=== PATIENT | female | born 1955 | race Caucasian/White ===

== ENCOUNTER → 2018-08-07 16:35 | Outpatient (CLI) | payer MEDICARE, SELFPAY ==
--- NOTE | 2018-08-07 16:50 | RAD_ITS ---
STUDY: X-RAY - LEFT KNEE REASON FOR EXAM: Female, 63 years old. Left knee pain TECHNIQUE: 4 view(s) of the knee. COMPARISON: 11/22/2015 FINDINGS: Normal visualized distal femur. Normal visualized proximal tibia and fibula. Normal proximal tibiofibular articulation. Stable spurring along the tibial spine and femoral notch. There is stable mild to moderate moderate degenerative arthrosis of the medial femorotibial compartment with moderate joint space narrowing. There is stable severe degenerative arthrosis of the lateral femorotibial compartment with severe joint space narrowing. Normal patellofemoral articulation. There is no demonstrated joint effusion. Morbid obesity. RAD/Knee 4 or More Views IMPRESSION: No significant change of predominantly left severe lateral femorotibial degeneration. Electronically Signed: Sierra Crespo MD at 6:45 EST , Service support ,
--- OUTSIDE RECORDS SUMMARY | 2018-10-12 11:56 | XMS RPT_ITS | Clinical Summary ---
:1955 Author Organization [place] 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) pulmonary 80-100%) disease Back pain, 741297624 Active Mehreen M Lumbar lumbar, (SNOMED 11/27 11/[address]) radiculopat hy Dyspnea on 85922929 Active Miah M Dyspnea on exertion (SNOMED 11/07 11/[address]) COPD stage 308453509 Removed Paulette Mild chronic 1 mild (SNOMED 11/02 11/02 Marie Rojas 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 Chronic 71313948 Active Miah M Chronic pain pain (SNOMED 08/14 08/[address]) Morbid 229601428 Active Miah M Morbid obesity obesity (SNOMED 08/14 08/[address]) J LUIS 17675717 Active Miah M Obstructive (SNOMED 08/14 08/[address] Brown [address] ap[address]) syndrome Tobacco 812203224 Active Miah M Tobacco dependence, (SNOMED 08/14 08/14 Brown DO dependence in in CT) remission remission COPD 96001518 Removed Miah M Chronic (SNOMED 08/14 08/[address]) lung disease Meniscus 154873616 Active Isabela Pollock Derangement of degeneratio (SNOMED 11/21 11/[address]) Osteoarthri 395070723 Active Isabela Pollock Osteoarthritis tis, knee, (SNOMED 11/21 11/21 [place] of knee left CT) Knee pain, 25669933 Active Isabela Pollock Knee pain left (SNOMED 11/21 11/[address]) Medications Medication Instructions Start Stop Generic Name NDC Provider Date Date XANAX 0.5 MG TABS twice daily ALPRAZOLAM [id number] Isabela Pollock / [place] XANAX 0.5 MG TABS twice daily ALPRAZOLAM 85119133469 Paulette L /07/31 [place] CALCIUM 500 +D CALCIUM 25265853971 Isabela Pollock 500-400 MG-UNIT / CARB-CHOLECALCIFE [place] TABS ROL CALCIUM 500 +D CALCIUM 15728039904 Paulette L 500-400 MG-UNIT /07/31 CARB-CHOLECALCIFE [place] TABS ROL VITAMIN D3 32908 CHOLECALCIFEROL 30679732087 Isabela Pollock UNIT CAPS / [place] VITAMIN D3 03081 CHOLECALCIFEROL 68427829678 Paulette L UNIT CAPS /07/31 [place] OMEPRAZOLE 20 MG twice daily OMEPRAZOLE 23623604685 Isabela Pollock TBEC /03 [place] OMEPRAZOLE 20 MG twice daily OMEPRAZOLE 12736684009 Paulette L TBEC /07/31 [place] FUROSEMIDE 20 MG daily FUROSEMIDE 26801063075 Alice TABS /03 [place] FUROSEMIDE 20 MG daily FUROSEMIDE 39433257256 Paulette L TABS /03 07/31 [place] ALENDRONATE 1 every week ALENDRONATE 18617729973 Isabela Pollock SODIUM 70 MG TABS / SODIUM [place] ALENDRONATE 1 every week ALENDRONATE 23277276047 Paulette L SODIUM 70 MG TABS /07/31 SODIUM [place] LISINOPRIL 40 MG twice daily LISINOPRIL 13065980776 Alice TABS / [place] LISINOPRIL 40 MG twice daily LISINOPRIL 68966015268 Paulette L TABS /07/31 [place] CARVEDILOL 25 MG twice daily CARVEDILOL 00040479450 Alice TABS / [place] CARVEDILOL 25 MG twice daily CARVEDILOL 93933249583 Paulette L TABS /07/31 [place] CELEXA 40 MG TABS daily CITALOPRAM 70547422611 Alice / HYDROBROMIDE [place] CELEXA 40 MG TABS daily CITALOPRAM 89562101863 Paulette L /07/31 HYDROBROMIDE [place] ALLOPURINOL 300 daily ALLOPURINOL 54470449676 Isabela Pollock MG TABS / [place] ALLOPURINOL 300 daily ALLOPURINOL 18816132633 Paulette L MG TABS /07/31 [place] IBUPROFEN 200 MG as needed IBUPROFEN 21330715181 Isabela Pollock TABS / [place] SYMBICORT 160-4.5 twice daily BUDESONIDE-FORMOT 15789737183 Isabela Pollock MCG/ACT AERO / HAZEL FUMARATE [place] RESTASIS 0.05 % CYCLOSPORINE 37863140115 Isabela Pollock EMUL / [place] MELOXICAM 7.5 MG as needed MELOXICAM 81515519306 Isabela Pollock TABS /03 [place] PROAIR HFA 108 ALBUTEROL SULFATE 57195098149 Isabela Pollock (90 Base) MCG/ACT / [place] AERS MAGNESIUM OXIDE daily MAGNESIUM OXIDE 82987328353 Isabela Pollock 400 MG [place] SIMVASTATIN 40 MG daily SIMVASTATIN 80370960075 Isabela Pollock TABS / [place] FLONASE 50 2 sprays FLUTICASONE 54962223240 Isabela Pollock MCG/ACT SUSP / PROPIONATE [place] SYMBICORT 160-4.5 Two puffs BUDESONIDE-FORMOT 93272302791 Paulette L MCG/ACT AERO twice daily HAZEL FUMARATE [place] SYMBICORT 160-4.5 Two puffs BUDESONIDE-FORMOT 01986969627 Miah Lozoya MCG/ACT AERO twice daily 11/07 HAZEL FUMARATE Brown DO DIPHENHYDRAMINE twice daily DIPHENHYDRAMINE 74849736479 Alice HCL 25 MG CAPS / HCL [place] GABAPENTIN 300 MG three times a GABAPENTIN 30784363514 Alice CAPS day [place] CYCLOBENZAPRINE three times a CYCLOBENZAPRINE 18824595203 Alice HCL 10 MG TABS HCL [place] ASPIRIN 81 MG daily ASPIRIN 31763391802 Alice ORAL TABS [place] IBUPROFEN 200 MG Four caps IBUPROFEN 49688291804 Paulette L TABS twice daily [place] needed RESTASIS 0.05 % One drop in CYCLOSPORINE 29249712776 Paulette L EMUL both eyes [place] twice daily MELOXICAM 7.5 MG One tab every MELOXICAM 40549093882 Paulette L TABS saturday [place] PROAIR HFA 108 Two puffs ALBUTEROL SULFATE 08067653830 Paulette L (90 Base) MCG/ACT every 6 hours / [place] AERS as needed MAGNESIUM OXIDE One tab twice MAGNESIUM OXIDE 06896821224 Paulette L 400 MG CAPS daily [place] SIMVASTATIN 40 MG One tab at SIMVASTATIN 81779048716 Paulette L TABS bedtime [place] FLONASE 50 2 sprays in FLUTICASONE Paulette L MCG/ACT SUSP each nostril / PROPIONATE [place] daily CETRAXAL 0.2 % 0.25 twiced CIPROFLOXACIN HCL 47236734651 Paulette L SOLN daily [place] PRED MILD 0.12 % One drop in PREDNISOLONE 32983326474 Paulette L SUSP both eyes ACETATE [place] times daily ACULAR LS 0.4 % One drop KETOROLAC 73686907064 Paulette L SOLN TROMETHAMINE Lino WELLBUTRIN XL 150 One tab once BUPROPION HCL 65482094893 Paulette L MG [id number] daily for [place] anxiety, depression ZYLOPRIM 300 MG One tab once ALLOPURINOL 81900066025 Paulette L TABS daily for gout [place] COREG 25 MG TABS One tab twice CARVEDILOL 98188781937 Paulette L daily [place] CELEXA 40 MG TABS One tab once CITALOPRAM 40927907250 Paulette L daily HYDROBROMIDE [place] K-TAB 10 MEQ One tab twice POTASSIUM 46654324205 Paulette L CR-TABS daily CHLORIDE CALCIUM 500+D3 One tab twice CALCIUM 67026883647 Paulette L 500-400 MG-UNIT daily CARB-CHOLECALCIFE [place] TABS ROL PRILOSEC 20 MG One cap twice OMEPRAZOLE 45129102230 Paulette L CPDR daily [place] TRAZODONE HCL 50 One tablet by TRAZODONE HCL 78534716979 Jayshree M MG TABS mouth at Chip night ALPRAZOLAM 0.5 MG One tablet by ALPRAZOLAM 71630825396 Jayshree M TABS mouth as Chip needed Medications Administered No information available. Allergies, Adverse Reactions, Alerts Allergy Name Reaction Description Start Date Severity Status Provider SEASONAL ALLERGIES Mild Active Paulette Huynh IODINATED CONTRAST Itching Mild Active Paulette Huynh DURAGESIC-25 Itching Mild Active Paulette Huynh Results Date Name Value Unit Range Flag Description Office Visit SMOK ADVICE yes Smoking cessation education (procedure) Office Visit: Spine Visit MEDS REVIEW Done Documentation of current medications (procedure) ORALTOBACUSE Never Tobacco smoking status NHIS SMOK STATUS Former smoker Tobacco use [facility] Lab Report: Calcium,Total CALCIUM 9.2 mg/dL 8.5-10.1 calcium, serum Lab Report: Vitamin D,25 Hydroxy VIT D 25-OH 32.6 ng/mL vitamin D 25-hydroxy, serum Plan of Care Type Date Detail Referral Physical Therapy [facility], [address] [place] [address], [phone] Referral Physical Therapy [facility], [address] [place] [address], [place], [address] Pending order *Calcium, Total Pending order *[id number] Vitamin D, 1, 25- DiHydroxy Pending order X-Ray, Spine, Lumbar, complete with bending views Pending order DEXA scan Pending order CSM Pending order Follow Up Appt 2 months Pending order Methylcholine inhalation challenge Pending order DMB Pending order Follow Up Appt 3 months Pending order Pulmonary Function Test - complete Pending order Pulmonary stress testing; simple (eg, 6-minute walk) Pending order X-Ray, Knee Procedures Code Procedure Name Date Entry Date PFT Pulmonary Function Test - complete [id number] Pulmonary stress testing; simple (eg, 6-minute walk) Vital Signs Date Name Value Unit Description BMI (Body Mass Index) 48.89 kg/m2 Body Mass Index [Ratio] Body Temperature 98.2 [degF] temperature E&M BP Diastolic 87 mm[Hg] blood pressure, diastolic - 8462-4 BP Systolic 156 mm[Hg] blood pressure, systolic - 8480-6 Heart Rate 57 /min pulse rate E&M - 8867-4 Height 63 [in_us] height E&M - 8302-2 Respiratory Rate 20 /min respiratory rate E&M - 9279-1 Weight Measured 276 [lb_av] weight E&M - 3141-9 Body Temperature 36.8 [place] temperature in centigrade E&M BSA (Body Surface Area) 2.20 body surface area Height 160.02 cm height in centimeters E&M
--- OUTSIDE RECORDS SUMMARY | 2018-10-12 11:56 | XMS RPT_ITS | Clinical Summary ---
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 obstructive (FEV1 CT) pulmonary 80-100%) disease Back pain, 448400956 Active Mehreen M Lumbar lumbar, (SNOMED 11/27 11/[address]) radiculopat hy Dyspnea on 94504819 Active Miah M Dyspnea on exertion (SNOMED 11/07 11/[address]) COPD stage 636459871 Removed Paulette Mild chronic 1 mild (SNOMED 11/02 11/02 Marie Rojas 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 Chronic 17950898 Active Miah M Chronic pain pain (SNOMED 08/14 08/[address]) Morbid 972120921 Active Miah M Morbid obesity obesity (SNOMED 08/14 08/[address]) J LUIS 90378233 Active Miah M Obstructive (SNOMED 08/14 08/[address] Brown [address] ap[address]) syndrome Tobacco 520011007 Active Miah M Tobacco dependence, (SNOMED 08/14 08/14 Brown DO dependence in in CT) remission remission COPD 62560248 Removed Miah M Chronic (SNOMED 08/14 08/[address]) lung disease Meniscus 492022301 Active Isabela Pollock Derangement of degeneratio (SNOMED 11/21 11/[address] [place] [address]) Osteoarthri 166768408 Active Isabela Pollock Osteoarthritis tis, knee, (SNOMED 11/21 11/21 [place] of knee left CT) Knee pain, 41426181 Active Isabela Pollock Knee pain left (SNOMED 11/21 11/[address]) Medications Medication Instructions Start Stop Generic Name NDC Provider Date Date XANAX 0.5 MG TABS twice daily ALPRAZOLAM 72222621786 Isabela Pollock / [place] XANAX 0.5 MG TABS twice daily ALPRAZOLAM 24384380726 Paulette L /07/31 [place] CALCIUM 500 +D CALCIUM 52417019213 Isabela Pollock 500-400 MG-UNIT / CARB-CHOLECALCIFE [place] TABS ROL CALCIUM 500 +D CALCIUM 24208823641 Paulette L 500-400 MG-UNIT /07/31 CARB-CHOLECALCIFE [place] TABS ROL VITAMIN D3 81132 CHOLECALCIFEROL 10905674685 Isabela Pollock UNIT CAPS / [place] VITAMIN D3 64267 CHOLECALCIFEROL 41863727656 Paulette L UNIT CAPS /07/31 [place] OMEPRAZOLE 20 MG twice daily OMEPRAZOLE 85821983477 Isabela Pollock TBEC /03 [place] OMEPRAZOLE 20 MG twice daily OMEPRAZOLE 97632270911 Paulette L TBEC /07/31 [place] FUROSEMIDE 20 MG daily FUROSEMIDE 24897890683 Alice TABS /03 [place] FUROSEMIDE 20 MG daily FUROSEMIDE 93574921742 Paulette L TABS /03 07/31 [place] ALENDRONATE 1 every week ALENDRONATE 22014607072 Isabela Pollock SODIUM 70 MG TABS / SODIUM [place] ALENDRONATE 1 every week ALENDRONATE 63573069296 Paulette L SODIUM 70 MG TABS /07/31 SODIUM [place] LISINOPRIL 40 MG twice daily LISINOPRIL 05677230539 Alice TABS / [place] LISINOPRIL 40 MG twice daily LISINOPRIL 31237107584 Paulette L TABS /07/31 [place] CARVEDILOL 25 MG twice daily CARVEDILOL 95962304886 Alice TABS / [place] CARVEDILOL 25 MG twice daily CARVEDILOL 53729530760 Paulette L TABS /07/31 [place] CELEXA 40 MG TABS daily CITALOPRAM 86183719312 Alice / HYDROBROMIDE [place] CELEXA 40 MG TABS daily CITALOPRAM 42371266923 Paulette L /07/31 HYDROBROMIDE [place] ALLOPURINOL 300 daily ALLOPURINOL 70618122308 Isabela Pollock MG TABS / [place] ALLOPURINOL 300 daily ALLOPURINOL 74697586031 Paulette L MG TABS /07/31 [place] IBUPROFEN 200 MG as needed IBUPROFEN 56032207849 Isabela Pollock TABS / [place] SYMBICORT 160-4.5 twice daily BUDESONIDE-FORMOT 90682298344 Isabela Pollock MCG/ACT AERO / HAZEL FUMARATE [place] RESTASIS 0.05 % CYCLOSPORINE 70185721180 Isabela Pollock EMUL / [place] MELOXICAM 7.5 MG as needed MELOXICAM 15408266546 Isabela Pollock TABS /03 [place] PROAIR HFA 108 ALBUTEROL SULFATE 46223707566 Isabela Pollock (90 Base) MCG/ACT / [place] AERS MAGNESIUM OXIDE daily MAGNESIUM OXIDE 73357232638 Isabela Pollock 400 MG [place] SIMVASTATIN 40 MG daily SIMVASTATIN 92480941174 Isabela Pollock TABS / [place] FLONASE 50 2 sprays FLUTICASONE 25951598068 Isabela Pollock MCG/ACT SUSP / PROPIONATE [place] SYMBICORT 160-4.5 Two puffs BUDESONIDE-FORMOT 77361992259 Paulette L MCG/ACT AERO twice daily HAZEL FUMARATE [place] SYMBICORT 160-4.5 Two puffs BUDESONIDE-FORMOT 53674130199 Miah Lozoya MCG/ACT AERO twice daily 11/07 HAZEL FUMARATE Brown DO DIPHENHYDRAMINE twice daily DIPHENHYDRAMINE 09951374337 Alice HCL 25 MG CAPS / HCL [place] GABAPENTIN 300 MG three times a GABAPENTIN 60835793095 [place] CAPS day [place] CYCLOBENZAPRINE three times a CYCLOBENZAPRINE 84208296622 Alice HCL 10 MG TABS HCL [place] ASPIRIN 81 MG daily ASPIRIN 19157877871 Alice ORAL TABS [place] IBUPROFEN 200 MG Four caps IBUPROFEN 01770452807 Paulette L TABS twice daily [place] needed RESTASIS 0.05 % One drop in CYCLOSPORINE 02622814359 Paulette L EMUL both eyes [place] twice daily MELOXICAM 7.5 MG One tab every MELOXICAM 89368680801 Paulette L TABS saturday [place] PROAIR HFA 108 Two puffs ALBUTEROL SULFATE 63631912902 Paulette L (90 Base) MCG/ACT every 6 hours / [place] AERS as needed MAGNESIUM OXIDE One tab twice MAGNESIUM OXIDE 24193086219 Paulette L 400 MG CAPS daily [place] SIMVASTATIN 40 MG One tab at SIMVASTATIN 62695331034 Paulette L TABS bedtime [place] FLONASE 50 2 sprays in FLUTICASONE Paulette L MCG/ACT SUSP each nostril / PROPIONATE [place] daily CETRAXAL 0.2 % 0.25 twiced CIPROFLOXACIN HCL 52942658396 Paulette L SOLN daily [place] PRED MILD 0.12 % One drop in PREDNISOLONE 14064909748 Paulette L SUSP both eyes ACETATE [place] times daily ACULAR LS 0.4 % One drop KETOROLAC 06305015542 Paulette L SOLN TROMETHAMINE Lino WELLBUTRIN XL 150 One tab once BUPROPION HCL 74834665124 Paulette L MG [id number] daily for [place] anxiety, depression ZYLOPRIM 300 MG One tab once ALLOPURINOL 39067936350 Paulette L TABS daily for gout [place] COREG 25 MG TABS One tab twice CARVEDILOL 87204250331 Paulette L daily [place] CELEXA 40 MG TABS One tab once CITALOPRAM 90310204071 Paulette L daily HYDROBROMIDE [place] K-TAB 10 MEQ One tab twice POTASSIUM 32364023477 Paulette L CR-TABS daily CHLORIDE CALCIUM 500+D3 One tab twice CALCIUM 05667098426 Paulette L 500-400 MG-UNIT daily CARB-CHOLECALCIFE [place] TABS ROL PRILOSEC 20 MG One cap twice OMEPRAZOLE 50042101892 Paulette L CPDR daily [place] TRAZODONE HCL 50 One tablet by TRAZODONE HCL 35514774267 Jayshree M MG TABS mouth at Chip night ALPRAZOLAM 0.5 MG One tablet by ALPRAZOLAM 44751846273 Jayshree M TABS mouth as Chip needed [...] NHIS SMOK STATUS Former smoker Tobacco use [facility] Lab Report: Calcium,Total CALCIUM 9.2 mg/dL 8.5-10.1 calcium, serum Lab Report: Vitamin D,25 Hydroxy VIT D 25-OH 32.6 ng/mL vitamin D 25-hydroxy, serum Lab Report: Vitamin D 1,25-Dihydroxy VIT D 1,25OH 36.5 19.9-79.3 vitamin D 1,25-dihydroxy, serum Plan of Care Type Date Detail Referral Physical Therapy [facility], [address] [place] [address], [address] Referral Physical Therapy [facility], [address] [place] [address], [address] Pending order *Calcium, Total Pending order *[id number] Vitamin D, 1, 25- DiHydroxy Pending order [...] Date PFT Pulmonary Function Test - complete CPT-97051 Pulmonary stress testing; simple (eg, 6-minute walk) [...] Height 160.02 cm height in centimeters E&M Weight Measured 122.73 kg weight in kilograms E&M
--- OUTSIDE RECORDS SUMMARY | 2018-10-12 11:56 | XMS RPT_ITS | Clinical Summary ---
:1955 Author Organization [place] 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 CT) pulmonary 80-100%) disease Back pain, 210063009 Active Mehreen M Lumbar lumbar, (SNOMED 11/27 11/[address]) radiculopat hy Dyspnea on 88091363 Active Miah M Dyspnea on exertion (SNOMED 11/07 11/[address]) COPD stage 035480630 Removed Paulette Mild chronic 1 mild (SNOMED 11/02 11/02 Marie Rojas 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 Chronic 09129383 Active Miah M Chronic pain pain (SNOMED 08/14 08/[address]) Morbid 542027546 Active Miah M Morbid obesity obesity (SNOMED 08/14 08/[address]) J LUIS 42657181 Active Miah M Obstructive (SNOMED 08/14 08/[address] ap[address]) syndrome Tobacco 979232525 Active Miah M Tobacco dependence, (SNOMED 08/14 08/14 Brown DO dependence in in CT) remission remission COPD 08441954 Removed Miah M Chronic (SNOMED 08/14 08/[address]) lung disease Meniscus 338522166 Active Isabela Pollock Derangement of degeneratio (SNOMED 11/21 11/[address] [place]) Osteoarthri 870696310 Active Isabela Pollock Osteoarthritis tis, knee, (SNOMED 11/21 11/21 [place] of knee left CT) Knee pain, 81570079 Active Isabela Pollock Knee pain left (SNOMED 11/21 11/[address]) Medications Medication Instructions Start Stop Generic Name NDC Provider Date Date XANAX 0.5 MG TABS twice daily ALPRAZOLAM [id number] Isabela Pollock / [place] XANAX 0.5 MG TABS twice daily ALPRAZOLAM 80162257082 Paulette L /07/31 [place] CALCIUM 500 +D CALCIUM 06590435889 Isabela Pollock 500-400 MG-UNIT / CARB-CHOLECALCIFE [place] TABS ROL CALCIUM 500 +D CALCIUM 78863034111 Paulette L 500-400 MG-UNIT /07/31 CARB-CHOLECALCIFE [place] TABS ROL VITAMIN D3 33180 CHOLECALCIFEROL 11651281570 Isabela Pollock UNIT CAPS / [place] VITAMIN D3 53450 CHOLECALCIFEROL 77256986048 Paulette L UNIT CAPS /07/31 [place] OMEPRAZOLE 20 MG twice daily OMEPRAZOLE 06529539786 Isabela Pollock TBEC /03 [place] OMEPRAZOLE 20 MG twice daily OMEPRAZOLE 25642045940 Paulette L TBEC /07/31 [place] FUROSEMIDE 20 MG daily FUROSEMIDE 26835070419 Alice TABS /03 [place] FUROSEMIDE 20 MG daily FUROSEMIDE 84123181478 Paulette L TABS /03 07/31 [place] ALENDRONATE 1 every week ALENDRONATE 05751180839 Isabela Pollock SODIUM 70 MG TABS / SODIUM [place] ALENDRONATE 1 every week ALENDRONATE 25821138418 Paulette L SODIUM 70 MG TABS /07/31 SODIUM [place] LISINOPRIL 40 MG twice daily LISINOPRIL 23683027235 Alice TABS / [place] LISINOPRIL 40 MG twice daily LISINOPRIL 45784336158 Paulette L TABS /07/31 [place] CARVEDILOL 25 MG twice daily CARVEDILOL 18127298894 Alice TABS / [place] CARVEDILOL 25 MG twice daily CARVEDILOL 34680356497 Paulette L TABS /07/31 [place] CELEXA 40 MG TABS daily CITALOPRAM 08875690474 Alice / HYDROBROMIDE [place] CELEXA 40 MG TABS daily CITALOPRAM 45073740507 Paulette L /07/31 HYDROBROMIDE [place] ALLOPURINOL 300 daily ALLOPURINOL 92824599184 Isabela Pollock MG TABS / [place] ALLOPURINOL 300 daily ALLOPURINOL 45068209051 Paulette L MG TABS /07/31 [place] IBUPROFEN 200 MG as needed IBUPROFEN 26421245668 Isabela Pollock TABS / [place] SYMBICORT 160-4.5 twice daily BUDESONIDE-FORMOT 68680237542 Isabela Pollock MCG/ACT AERO / HAZEL FUMARATE [place] RESTASIS 0.05 % CYCLOSPORINE 24487652044 Isabela Pollock EMUL / [place] MELOXICAM 7.5 MG as needed MELOXICAM 28782287841 Isabela Pollock TABS /03 [place] PROAIR HFA 108 ALBUTEROL SULFATE 81672428030 Isabela Pollock (90 Base) MCG/ACT / [place] AERS MAGNESIUM OXIDE daily MAGNESIUM OXIDE 91567457004 Isabela Pollock 400 MG [place] SIMVASTATIN 40 MG daily SIMVASTATIN 94663439670 Isabela Pollock TABS / [place] FLONASE 50 2 sprays FLUTICASONE 97610179787 Isabela Pollock MCG/ACT SUSP / PROPIONATE [place] SYMBICORT 160-4.5 Two puffs BUDESONIDE-FORMOT 70745873339 Paulette L MCG/ACT AERO twice daily HAZEL FUMARATE [place] SYMBICORT 160-4.5 Two puffs BUDESONIDE-FORMOT 16507812717 Miah Lozoya MCG/ACT AERO twice daily 11/07 HAZEL FUMARATE Brown DO DIPHENHYDRAMINE twice daily DIPHENHYDRAMINE 34906447432 Alice HCL 25 MG CAPS / HCL [place] GABAPENTIN 300 MG three times a GABAPENTIN 74312253811 Alice CAPS day [place] CYCLOBENZAPRINE three times a CYCLOBENZAPRINE 71468728496 Alice HCL 10 MG TABS HCL [place] ASPIRIN 81 MG daily ASPIRIN 94455329425 Alice ORAL TABS [place] IBUPROFEN 200 MG Four caps IBUPROFEN 68710110800 Paulette L TABS twice daily [place] needed RESTASIS 0.05 % One drop in CYCLOSPORINE 67024380652 Paulette L EMUL both eyes [place] twice daily MELOXICAM 7.5 MG One tab every MELOXICAM 38114433941 Paulette L TABS saturday [place] PROAIR HFA 108 Two puffs ALBUTEROL SULFATE 28172417023 Paulette L (90 Base) MCG/ACT every 6 hours / [place] AERS as needed MAGNESIUM OXIDE One tab twice MAGNESIUM OXIDE 82672197308 Paulette L 400 MG CAPS daily [place] SIMVASTATIN 40 MG One tab at SIMVASTATIN 53617503144 Paulette L TABS bedtime [place] FLONASE 50 2 sprays in FLUTICASONE Paulette L MCG/ACT SUSP each nostril / PROPIONATE [place] daily CETRAXAL 0.2 % 0.25 twiced CIPROFLOXACIN HCL 94943685866 Paulette L SOLN daily [place] PRED MILD 0.12 % One drop in PREDNISOLONE 48347607708 Paulette L SUSP both eyes ACETATE [place] times daily ACULAR LS 0.4 % One drop KETOROLAC 13139448368 Paulette L SOLN TROMETHAMINE Lino WELLBUTRIN XL 150 One tab once BUPROPION HCL 01669995844 Paulette L MG [id number] daily for [place] anxiety, depression ZYLOPRIM 300 MG One tab once ALLOPURINOL 97374544423 Paulette L TABS daily for gout [place] COREG 25 MG TABS One tab twice CARVEDILOL 62062739892 Paulette L daily [place] CELEXA 40 MG TABS One tab once CITALOPRAM 22684875454 Paulette L daily HYDROBROMIDE [place] K-TAB 10 MEQ One tab twice POTASSIUM 08034752974 Paulette L CR-TABS daily CHLORIDE CALCIUM 500+D3 One tab twice CALCIUM 42901307461 Paulette L 500-400 MG-UNIT daily CARB-CHOLECALCIFE York TABS ROL PRILOSEC 20 MG One cap twice OMEPRAZOLE 25534877924 Paulette L CPDR daily [place] TRAZODONE HCL 50 One tablet by TRAZODONE HCL 72029301800 Jayshree M MG TABS mouth at Chip night ALPRAZOLAM 0.5 MG One tablet by ALPRAZOLAM 50077221812 Jayshree M TABS mouth as Chip needed Medications Administered No information available. Allergies, Adverse Reactions, Alerts Allergy Name Reaction Description Start Date Severity Status Provider SEASONAL ALLERGIES Mild Active Paulette Huynh IODINATED CONTRAST Itching Mild Active Paulette Huynh DURAGESIC-25 Itching Mild Active Paulette Huynh Results Date Name Value Unit Range Flag Description Office Visit SMOK ADVICE yes Smoking cessation education (procedure) Office Visit: COPD/J LUIS MEDS REVIEW Done Documentation of current medications (procedure) ORALTOBACUSE Never Tobacco smoking status NHIS SMOK STATUS Former smoker Tobacco use [facility] Plan of Care Type Date Detail Referral [facility] Therapy [facility], [address] [place] [address], [phone] Referral Physical Therapy [facility], [address] [place] [address], [phone] Pending order *Calcium, Total Pending order *[id number] Vitamin D, 1, 25- DiHydroxy Pending order [...] Date PFT Pulmonary Function Test - complete CPT-60978 Pulmonary stress testing; simple (eg, 6-minute walk) [...]
--- OUTSIDE RECORDS SUMMARY | 2018-10-12 11:57 | XMS RPT_ITS | Clinical Summary ---
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) Dyspnea on 61676256 Active Miah M Dyspnea on exertion (SNOMED 11/07 11/[address]) COPD stage 1 600816371 Active Paulette Mild chronic mild (FEV1 (SNOMED 11/02 11/02 Marie Rojas obstructive 80-100%) 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 pulmonary 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 Chronic pain 34054057 Active Miah M Chronic pain (SNOMED 08/14 08/[address]) Morbid 130409942 Active Miah M Morbid obesity obesity (SNOMED 08/14 08/[address]) J LUIS 07887918 Active Miah M Obstructive (SNOMED 08/14 08/14 Brown DO sleep apnea CT) syndrome Tobacco 596831362 Active Miah M Tobacco dependence, (SNOMED 08/14 08/14 Brown DO dependence in in remission CT) remission COPD 56348218 Active Miah M Chronic (SNOMED 08/14 08/[address]) lung disease Meniscus 938125484 Active Alice Derangement of degeneration (SNOMED 11/21 11/[address]) Osteoarthriti 174469434 Active Alice Osteoarthritis s, knee, left (SNOMED 11/21 11/21 [facility] of knee CT) Knee pain, 66357258 Active Alice Knee pain left (SNOMED 11/21 11/[address]) Medications Medication Instructions Start Stop Generic Name NDC Provider Date Date XANAX 0.5 MG TABS twice daily ALPRAZOLAM 33767072068 Alice / [place] XANAX 0.5 MG TABS twice daily ALPRAZOLAM 71291623757 Paulette L /03 07/31 [place] CALCIUM 500 +D CALCIUM 97107560981 Isabela Pollock 500-400 MG-UNIT / CARB-CHOLECALCIFE [place] TABS ROL CALCIUM 500 +D CALCIUM 19721738910 Paulette L 500-400 MG-UNIT /07/31 CARB-CHOLECALCIFE [place] TABS ROL VITAMIN D3 76431 CHOLECALCIFEROL 18509239999 Alice UNIT CAPS / [place] VITAMIN D3 67401 CHOLECALCIFEROL 05026432166 Paulette L UNIT CAPS /03 07/31 [place] OMEPRAZOLE 20 MG twice daily OMEPRAZOLE 04090572055 Alice TBEC / [place] OMEPRAZOLE 20 MG twice daily OMEPRAZOLE 00556409849 Paulette L TBEC /07/31 [place] FUROSEMIDE 20 MG daily FUROSEMIDE 65979296070 Alice TABS /03 [place] FUROSEMIDE 20 MG daily FUROSEMIDE 74500018920 Paulette L TABS /07/31 [place] ALENDRONATE 1 every week ALENDRONATE 50122733438 Alice SODIUM 70 MG TABS / SODIUM [place] ALENDRONATE 1 every week ALENDRONATE 31831043068 Paulette L SODIUM 70 MG TABS /07/31 SODIUM [place] LISINOPRIL 40 MG twice daily LISINOPRIL 63379515254 Alice TABS /03 [place] LISINOPRIL 40 MG twice daily LISINOPRIL 93223738872 Paulette L TABS /07/31 [place] CARVEDILOL 25 MG twice daily CARVEDILOL 62921198927 Alice TABS / [place] CARVEDILOL 25 MG twice daily CARVEDILOL 49880332933 Paulette L TABS 07/31 [place] CELEXA 40 MG TABS daily CITALOPRAM 79618166046 Alice / HYDROBROMIDE [place] CELEXA 40 MG TABS daily CITALOPRAM 95062454735 Paulette L /07/31 HYDROBROMIDE [place] ALLOPURINOL 300 daily ALLOPURINOL 57389010820 Alice MG TABS [place] ALLOPURINOL 300 daily ALLOPURINOL 98462151870 Paulette L MG TABS /07/31 [place] IBUPROFEN 200 MG as needed IBUPROFEN 51904126573 Isabela Pollock TABS / [place] SYMBICORT 160-4.5 twice daily BUDESONIDE-FORMOT 89556254062 Isabela Pollock MCG/ACT AERO / HAZEL FUMARATE [place] RESTASIS 0.05 % CYCLOSPORINE 60454978384 Isabela Plolock EMUL / [place] MELOXICAM 7.5 MG as needed MELOXICAM 46845874779 Isabela Pollock TABS [place] PROAIR HFA 108 ALBUTEROL SULFATE 48973126686 Isabela Pollock (90 Base) MCG/ACT /03 [place] AERS MAGNESIUM OXIDE daily MAGNESIUM OXIDE 03730700641 Isabela Pollock 400 MG CAPS [place] SIMVASTATIN 40 MG daily SIMVASTATIN 59453807934 Isabela Pollock TABS / [place] FLONASE 50 2 sprays FLUTICASONE 23581922192 Isabela Pollock MCG/ACT SUSP / PROPIONATE [place] SYMBICORT 160-4.5 Two puffs BUDESONIDE-FORMOT 43381103996 Paulette L MCG/ACT AERO twice daily HAZEL FUMARATE [place] SYMBICORT 160-4.5 Two puffs BUDESONIDE-FORMOT 36479009703 Miah Lozoya MCG/ACT AERO twice daily /11/07 HAZEL FUMARATE Brown DO DIPHENHYDRAMINE twice daily DIPHENHYDRAMINE 29384556852 Isabela Pollock HCL 25 MG CAPS / HCL [place] GABAPENTIN 300 MG three times a GABAPENTIN 36358616893 Isabela Pollock CAPS day [place] CYCLOBENZAPRINE three times a CYCLOBENZAPRINE 05555201066 Isabela Pollock HCL 10 MG TABS HCL [place] ASPIRIN 81 MG daily ASPIRIN 09423275077 Isabela Pollock ORAL TABS [place] IBUPROFEN 200 MG Four caps IBUPROFEN 88136301642 Paulette L TABS twice daily [place] needed RESTASIS 0.05 % One drop in CYCLOSPORINE 16677913832 Paulette L EMUL both eyes / [place] twice daily MELOXICAM 7.5 MG One tab every MELOXICAM 45832789978 Paulette L TABS saturday [place] PROAIR HFA 108 Two puffs ALBUTEROL SULFATE 95613938992 Paulette L (90 Base) MCG/ACT every 6 hours / [place] AERS as needed MAGNESIUM OXIDE One tab twice MAGNESIUM OXIDE 54382644752 Paulette L 400 MG CAPS daily [place] SIMVASTATIN 40 MG One tab at SIMVASTATIN 94247469932 Paulette L TABS bedtime [place] FLONASE 50 2 sprays in FLUTICASONE Paulette L MCG/ACT SUSP each nostril / PROPIONATE [place] daily CETRAXAL 0.2 % 0.25 twiced CIPROFLOXACIN HCL 28722342846 Paulette L SOLN daily [place] PRED MILD 0.12 % One drop in PREDNISOLONE 80467901254 Paulette L SUSP both eyes ACETATE [place] times daily ACULAR LS 0.4 % One drop KETOROLAC 13525771773 Paulette L SOLN TROMETHAMINE WELLBUTRIN XL 150 One tab once BUPROPION HCL 53999432819 Paulette L MG [id number] daily for [place] anxiety, depression ZYLOPRIM 300 MG One tab once ALLOPURINOL 95600274377 Paulette L TABS daily for gout [place] COREG 25 MG TABS One tab twice CARVEDILOL 81128625896 Paulette L daily [place] CELEXA 40 MG TABS One tab once CITALOPRAM 14042415483 Paulette L daily HYDROBROMIDE [place] K-TAB 10 MEQ One tab twice POTASSIUM 88357511236 Paulette L CR-TABS daily CHLORIDE Lino CALCIUM 500+D3 One tab twice CALCIUM 49407847118 Paulette L 500-400 MG-UNIT daily CARB-CHOLECALCIFE [place] TABS ROL PRILOSEC 20 MG One cap twice OMEPRAZOLE 63008500087 Paulette L CPDR daily [place] TRAZODONE HCL 50 One tablet by TRAZODONE HCL 35469093978 Jayshree M MG TABS mouth at Chip night ALPRAZOLAM 0.5 MG One tablet by ALPRAZOLAM 10842879755 Jayshree M TABS mouth Chip needed Medications Administered No information available. Allergies, Adverse Reactions, Alerts Allergy Name Reaction Start Date Severity Status Provider Description SEASONAL Mild Active Paulette Huynh ALLERGIES IODINATED Itching Mild Active Paulette L Lino CONTRAST DURAGESIC-25 Itching Mild Active Paulette Huynh Results Date Name Value Unit Range Flag Description Office Visit SMOK ADVICE yes Smoking cessation education (procedure) Office Visit: J LUIS ORALTOBACUSE Never Tobacco smoking status NHIS SMOK STATUS Former smoker Tobacco use [facility] Office Visit: Spine Visit MEDS REVIEW Done Documentation of current medications (procedure) Plan of Care Type Date Detail Appointment 03:30 PM Mehreen Villagran, [address] [facility], [address], [place], [address], Appointment 01:30 PM Flower Ling [facility], [address] [facility], [address], [place], [address] Referral Physical Therapy [facility], [address] [place] [address], [phone] Referral Physical Therapy [facility], [address] [place] [address], [phone] Pending order X-Ray, Spine, Lumbar, complete with [...] Date PFT Pulmonary Function Test - complete CPT-47725 Pulmonary stress testing; simple (eg, 6-minute walk) Vital Signs Date Name Value Unit Description BMI (Body Mass Index) 49.24 kg/m2 Body Mass Index [Ratio] Weight Measured 278 [lb_av] weight E&M - 3141-9 Body Temperature 96.7 [degF] temperature E&M BP Diastolic 83 mm[Hg] blood pressure, diastolic - 8462-4 BP Systolic 148 mm[Hg] blood pressure, systolic - 8480-6 Heart Rate 61 /min pulse rate E&M - 8867-4 Height 63 [in_us] height E&M - 8302-2 O2 % BldC Oximetry 96 % oxygen saturation, oximetry Respiratory Rate 18 /min respiratory rate E&M - 9279-1 Body Temperature 36.8 [place] temperature in centigrade E&M BSA (Body Surface 2.20 body surface area Area) Height 160.02 cm height in centimeters E&M Weight Measured 122.73 kg weight in kilograms E&M
--- OUTSIDE RECORDS SUMMARY | 2018-10-12 11:57 | XMS RPT_ITS | Clinical Summary ---
:1955 Author Organization [place] [employer] [facility] Address [address] [place] [address] Phone Care Team Providers Name Role Phone Paulette Molina N Unavailable Conditions or Problems Problem Name Problem Onset Status Entry Provider Comment Standard Annotate Code Date Date Description Back pain, 183188786 Active Mehreen M Lumbar lumbar, with (SNOMED 11/27 11/27 Villagran radicul[address] radicul[address] CT) Dyspnea on 96417852 Active Miah M Dyspnea on exertion (SNOMED 11/07 11/[address]) COPD stage 1 665584911 Active Paulette Mild chronic mild (FEV1 (SNOMED 11/02 11/02 Marie Rojas obstructive 80-100%) CT) FULL TIME pulmonary disease Chronic pain 72396566 Active Miah M Chronic pain (SNOMED 08/14 08/[address]) Morbid 047921969 Active Miah M Morbid obesity obesity (SNOMED 08/14 08/[address]) J LUIS 27006343 Active Miah M Obstructive (SNOMED 08/14 08/14 Brown DO sleep apnea CT) syndrome Tobacco 407622980 Active Miah M Tobacco dependence, (SNOMED 08/14 08/14 Brown DO dependence in in remission CT) remission COPD 35218756 Active Miah M Chronic (SNOMED 08/14 08/[address]) lung disease Meniscus 123348231 Active Alice Derangement of degeneration (SNOMED 11/21 11/[address]) Osteoarthriti 194421056 Active Alice Osteoarthritis s, knee, left (SNOMED 11/21 11/21 [facility] of knee CT) Knee pain, 42676424 Active Alice Knee pain left (SNOMED 11/21 11/[address]) Medications Medication Instructions Start Stop Generic Name NDC Provider Date Date XANAX 0.5 MG TABS twice daily ALPRAZOLAM 37237121860 Alice / [place] XANAX 0.5 MG TABS twice daily ALPRAZOLAM 28645650253 Paulette L /03 07/31 [place] CALCIUM 500 +D CALCIUM 11337162424 Isabela Pollock 500-400 MG-UNIT / CARB-CHOLECALCIFE [place] TABS ROL CALCIUM 500 +D CALCIUM 87739728032 Paulette L 500-400 MG-UNIT /07/31 CARB-CHOLECALCIFE [place] TABS ROL VITAMIN D3 19690 CHOLECALCIFEROL 99991015515 Alice UNIT CAPS / [place] VITAMIN D3 25186 CHOLECALCIFEROL 26659900846 Paulette L UNIT CAPS /03 07/31 [place] OMEPRAZOLE 20 MG twice daily OMEPRAZOLE 01807478663 Alice TBEC / [place] OMEPRAZOLE 20 MG twice daily OMEPRAZOLE 64116494347 Paulette L TBEC /07/31 [place] FUROSEMIDE 20 MG daily FUROSEMIDE 68739072240 Alice TABS /03 [place] FUROSEMIDE 20 MG daily FUROSEMIDE 06794658289 Paulette L TABS /07/31 [place] ALENDRONATE 1 every week ALENDRONATE 68840029839 Alice SODIUM 70 MG TABS / SODIUM [place] ALENDRONATE 1 every week ALENDRONATE 59544485925 Paulette L SODIUM 70 MG TABS /07/31 SODIUM [place] LISINOPRIL 40 MG twice daily LISINOPRIL 49417268815 Alice TABS /03 [place] LISINOPRIL 40 MG twice daily LISINOPRIL 86580178260 Paulette L TABS /07/31 [place] CARVEDILOL 25 MG twice daily CARVEDILOL 66624267094 Alice TABS / [place] CARVEDILOL 25 MG twice daily CARVEDILOL 70478253504 Paulette L TABS 07/31 [place] CELEXA 40 MG TABS daily CITALOPRAM 24925706502 Alice / HYDROBROMIDE [place] CELEXA 40 MG TABS daily CITALOPRAM 06979743119 Paulette L /07/31 HYDROBROMIDE [place] ALLOPURINOL 300 daily ALLOPURINOL 74583368195 Alice MG TABS [place] ALLOPURINOL 300 daily ALLOPURINOL 69709652154 Paulette L MG TABS /07/31 [place] IBUPROFEN 200 MG as needed IBUPROFEN 33317841273 Isabela Pollock TABS / [place] SYMBICORT 160-4.5 twice daily BUDESONIDE-FORMOT 64639975964 Isabela Pollock MCG/ACT AERO / HAZEL FUMARATE [place] RESTASIS 0.05 % CYCLOSPORINE 56865159201 Isabela Pollock EMUL / [place] MELOXICAM 7.5 MG as needed MELOXICAM 89849092585 Isabela Pollock TABS [place] PROAIR HFA 108 ALBUTEROL SULFATE 96984125065 Isabela Pollock (90 Base) MCG/ACT /03 [place] AERS MAGNESIUM OXIDE daily MAGNESIUM OXIDE 31463906655 Isabela Pollock 400 MG CAPS [place] SIMVASTATIN 40 MG daily SIMVASTATIN 54750098093 Isabela Pollock TABS / [place] FLONASE 50 2 sprays FLUTICASONE 74633328437 Isabela Pollock MCG/ACT SUSP / PROPIONATE [place] SYMBICORT 160-4.5 Two puffs BUDESONIDE-FORMOT 13566647929 Paulette L MCG/ACT AERO twice daily HAZEL FUMARATE [place] SYMBICORT 160-4.5 Two puffs BUDESONIDE-FORMOT 07171464110 Miah Lozoya MCG/ACT AERO twice daily /11/07 HAZEL FUMARATE Brown DO DIPHENHYDRAMINE twice daily DIPHENHYDRAMINE 60623648811 Isabela Pollock HCL 25 MG CAPS / HCL [place] GABAPENTIN 300 MG three times a GABAPENTIN 24745040827 Isabela Pollock CAPS day [place] CYCLOBENZAPRINE three times a CYCLOBENZAPRINE 25540789639 Isabela Pollock HCL 10 MG TABS HCL [place] ASPIRIN 81 MG daily ASPIRIN 85793558851 Isabela Pollock ORAL TABS [place] IBUPROFEN 200 MG Four caps IBUPROFEN 11182880978 Paulette L TABS twice daily [place] needed RESTASIS 0.05 % One drop in CYCLOSPORINE 45506648944 Paulette L EMUL both eyes / [place] twice daily MELOXICAM 7.5 MG One tab every MELOXICAM 49636287098 Paulette L TABS saturday [place] PROAIR HFA 108 Two puffs ALBUTEROL SULFATE 73238635960 Paulette L (90 Base) MCG/ACT every 6 hours / [place] AERS as needed MAGNESIUM OXIDE One tab twice MAGNESIUM OXIDE 80852466356 Paulette L 400 MG CAPS daily [place] SIMVASTATIN 40 MG One tab at SIMVASTATIN 63066613721 Paulette L TABS bedtime [place] FLONASE 50 2 sprays in FLUTICASONE Paulette L MCG/ACT SUSP each nostril / PROPIONATE [place] daily CETRAXAL 0.2 % 0.25 twiced CIPROFLOXACIN HCL 07912146146 Paulette L SOLN daily [place] PRED MILD 0.12 % One drop in PREDNISOLONE 52136096864 Paulette L SUSP both eyes ACETATE [place] times daily ACULAR LS 0.4 % One drop KETOROLAC 38930645540 Paulette L SOLN TROMETHAMINE WELLBUTRIN XL 150 One tab once BUPROPION HCL 98328961974 Paulette L MG [id number] daily for [place] anxiety, depression ZYLOPRIM 300 MG One tab once ALLOPURINOL 02048023107 Paulette L TABS daily for gout [place] COREG 25 MG TABS One tab twice CARVEDILOL 68075351687 Paulette L daily [place] CELEXA 40 MG TABS One tab once CITALOPRAM 92146409688 Paulette L daily HYDROBROMIDE [place] K-TAB 10 MEQ One tab twice POTASSIUM 16513870407 Paulette L CR-TABS daily CHLORIDE Lino CALCIUM 500+D3 One tab twice CALCIUM 13038094662 Paulette L 500-400 MG-UNIT daily CARB-CHOLECALCIFE [place] TABS ROL PRILOSEC 20 MG One cap twice OMEPRAZOLE 72616269145 Paulette L CPDR daily [place] TRAZODONE HCL 50 One tablet by TRAZODONE HCL 41792649376 Jayshree M MG TABS mouth at Chip night ALPRAZOLAM 0.5 MG One tablet by ALPRAZOLAM 28348785812 Jayshree M TABS mouth Chip needed Medications [...] NHIS SMOK STATUS Former smoker Tobacco use [facility] Office Visit: Spine Visit MEDS REVIEW Done Documentation of current medications (procedure) Plan of Care Type Date Detail Appointment 03:30 PM Mehreen Villagran, [address] [facility], [address], [place], [address], Appointment 01:30 PM Flower Ling [facility], [address] [facility], [address], [place], [address] Referral Physical Therapy [facility], [address] [place] [address], [phone] Referral Physical Therapy [facility], [address] [place] [address], [phone] Pending order X-Ray, Spine, Lumbar, complete with [...] Date PFT Pulmonary Function Test - complete CPT-79670 Pulmonary stress testing; simple (eg, 6-minute walk) [...]
--- OUTSIDE RECORDS SUMMARY | 2018-10-12 11:57 | XMS RPT_ITS | Clinical Summary ---
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 ART obstructive (FEV1 CT) pulmonary 80-100%) disease Back pain, 187766288 Active Mehreen Lozoya Lumbar lumbar, (SNOMED 11/27 11/[address]) radiculopat hy Dyspnea on 30977457 Active Miah M Dyspnea on exertion (SNOMED 11/07 11/[address]) COPD stage 352636835 Removed Paulette Mild chronic 1 mild (SNOMED 11/02 11/02 Marie Rojas 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 Chronic 28375573 Active Miah M Chronic pain pain (SNOMED 08/14 08/[address]) Morbid 212941473 Active Miah M Morbid obesity obesity (SNOMED 08/14 08/[address]) J LUIS 79386538 Active Miah M Obstructive (SNOMED 08/14 08/[address] ap[address]) syndrome Tobacco 078231395 Active Miah M Tobacco dependence, (SNOMED 08/14 08/14 Brown DO dependence in in CT) remission remission COPD 98780815 Removed Miah M Chronic (SNOMED 08/14 08/[address]) lung disease Meniscus 893891418 Active Isabela Pollock Derangement of degeneratio (SNOMED 11/21 11/[address] [place]) Osteoarthri 107801625 Active Isabela Pollock Osteoarthritis tis, knee, (SNOMED 11/21 11/21 [place] of knee left CT) Knee pain, 21768045 Active Alice Knee pain left (SNOMED 11/21 11/[address]) Medications Medication Instructions Start Stop Generic Name NDC Provider Date Date XANAX 0.5 MG TABS twice daily ALPRAZOLAM [id number] Isabela Pollock / [place] XANAX 0.5 MG TABS twice daily ALPRAZOLAM 89061718486 Paulette L /07/31 [place] CALCIUM 500 +D CALCIUM 68571292105 Alice 500-400 MG-UNIT / CARB-CHOLECALCIFE [place] TABS ROL CALCIUM 500 +D CALCIUM 89025394441 Paulette L 500-400 MG-UNIT /07/31 CARB-CHOLECALCIFE [place] TABS ROL VITAMIN D3 66811 CHOLECALCIFEROL 76994447124 Alice UNIT CAPS / [place] VITAMIN D3 02048 CHOLECALCIFEROL 13489986106 Paulette L UNIT CAPS /07/31 [place] OMEPRAZOLE 20 MG twice daily OMEPRAZOLE 03746325774 Alice TBEC / [place] OMEPRAZOLE 20 MG twice daily OMEPRAZOLE 72018824593 Paulette L TBEC /07/31 [place] FUROSEMIDE 20 MG daily FUROSEMIDE 99588022384 Alice TABS /03 [place] FUROSEMIDE 20 MG daily FUROSEMIDE 74860774720 Paulette L TABS /07/31 [place] ALENDRONATE 1 every week ALENDRONATE 67339433001 Isabela Pollock SODIUM 70 MG TABS /03 SODIUM [place] ALENDRONATE 1 every week ALENDRONATE 45847692829 Paulette L SODIUM 70 MG TABS /07/31 SODIUM [place] LISINOPRIL 40 MG twice daily LISINOPRIL 30974010113 Alice TABS /03 [place] LISINOPRIL 40 MG twice daily LISINOPRIL 81208736975 Paulette L TABS /07/31 [place] CARVEDILOL 25 MG twice daily CARVEDILOL 03198132681 Alice TABS / [place] CARVEDILOL 25 MG twice daily CARVEDILOL 34044392090 Paulette L TABS 07/31 [place] CELEXA 40 MG TABS daily CITALOPRAM 21292493682 Alice / HYDROBROMIDE [place] CELEXA 40 MG TABS daily CITALOPRAM 04094426154 Paulette L /07/31 HYDROBROMIDE [place] ALLOPURINOL 300 daily ALLOPURINOL 85011718430 Alice MG TABS / [place] ALLOPURINOL 300 daily ALLOPURINOL 93821370524 Paulette L MG TABS /07/31 [place] IBUPROFEN 200 MG as needed IBUPROFEN 79669479705 Alice TABS / [place] SYMBICORT 160-4.5 twice daily BUDESONIDE-FORMOT 89367572715 Isabela Pollock MCG/ACT AERO /03 HAZEL FUMARATE [place] RESTASIS 0.05 % CYCLOSPORINE 14425643171 Isabela Pollock EMUL / [place] MELOXICAM 7.5 MG as needed MELOXICAM 85213503530 Alice TABS /03 [place] PROAIR HFA 108 ALBUTEROL SULFATE 89214228687 Isabela Pollock (90 Base) MCG/ACT /03 [place] AERS MAGNESIUM OXIDE daily MAGNESIUM OXIDE 33461820206 Isabela Pollock 400 MG CAPS [place] SIMVASTATIN 40 MG daily SIMVASTATIN 40508188542 Alice TABS / [place] FLONASE 50 2 sprays FLUTICASONE 72853256055 Isabela Pollock MCG/ACT SUSP / PROPIONATE [place] SYMBICORT 160-4.5 Two puffs BUDESONIDE-FORMOT 93603765568 Paulette L MCG/ACT AERO twice daily HAZEL FUMARATE [place] SYMBICORT 160-4.5 Two puffs BUDESONIDE-FORMOT 07952820918 Miah Lozoya MCG/ACT AERO twice daily 11/07 HAZEL FUMARATE Brown DO DIPHENHYDRAMINE twice daily DIPHENHYDRAMINE 09171257638 Alice HCL 25 MG CAPS / HCL [place] GABAPENTIN 300 MG three times a GABAPENTIN 27517318238 Alice CAPS day [place] CYCLOBENZAPRINE three times a CYCLOBENZAPRINE 17169760888 Alice HCL 10 MG TABS HCL [place] ASPIRIN 81 MG daily ASPIRIN 59363239632 Alice ORAL TABS [place] IBUPROFEN 200 MG Four caps IBUPROFEN 24725860179 Paulette L TABS twice daily [place] needed RESTASIS 0.05 % One drop in CYCLOSPORINE 13822695982 Paulette L EMUL both eyes [place] twice daily MELOXICAM 7.5 MG One tab every MELOXICAM 81949234873 Paulette L TABS saturday [place] PROAIR HFA 108 Two puffs ALBUTEROL SULFATE 52953683772 Paulette L (90 Base) MCG/ACT every 6 hours / [place] AERS as needed MAGNESIUM OXIDE One tab twice MAGNESIUM OXIDE 47409200406 Paulette L 400 MG CAPS daily [place] SIMVASTATIN 40 MG One tab at SIMVASTATIN 11541603815 Paulette L TABS bedtime [place] FLONASE 50 2 sprays in FLUTICASONE Paulette L MCG/ACT SUSP each nostril / PROPIONATE [place] daily CETRAXAL 0.2 % 0.25 twiced CIPROFLOXACIN HCL 92662273064 Paulette L SOLN daily [place] PRED MILD 0.12 % One drop in PREDNISOLONE 97544551915 Paulette L SUSP both eyes ACETATE [place] times daily ACULAR LS 0.4 % One drop KETOROLAC 13421856229 Paulette Nunez SOLN / TROMETHAMINE Lino WELLBUTRIN XL 150 One tab once BUPROPION HCL 23907369330 Paulette L MG [id number] daily for [place] anxiety, depression ZYLOPRIM 300 MG One tab once ALLOPURINOL 86365971726 Paulette L TABS daily for gout [place] COREG 25 MG TABS One tab twice CARVEDILOL 97275386318 Paulette L daily [place] CELEXA 40 MG TABS One tab once CITALOPRAM 17058767921 Paulette L daily HYDROBROMIDE [place] K-TAB 10 MEQ One tab twice POTASSIUM 16333210699 Paulette L CR-TABS daily CHLORIDE Lino CALCIUM 500+D3 One tab twice CALCIUM 29189853888 Paulette L 500-400 MG-UNIT daily CARB-CHOLECALCIFE [place] TABS ROL PRILOSEC 20 MG One cap twice OMEPRAZOLE 21654261719 Paulette L CPDR daily [place] TRAZODONE HCL 50 One tablet by TRAZODONE HCL 87742710157 Jayshree M MG TABS mouth at night ALPRAZOLAM 0.5 MG One tablet by ALPRAZOLAM 34834067747 Jayshree M TABS mouth as Chip needed [...] NHIS SMOK STATUS Former smoker Tobacco use [facility] Plan of Care Type Date Detail Appointment 03:00 PM Mehreen Villagran, [address] [place] [address], [address], [place], [address], Referral Physical Therapy [facility], [address] [place] [address], [place], [address] Referral Physical Therapy [facility], [address] [place] [address], [place], [address] Pending order X-Ray, Spine, Lumbar, complete with [...] Date PFT Pulmonary Function Test - complete CPT-43853 Pulmonary stress testing; simple (eg, 6-minute walk) [...] E&M - 8302-2 O2 % BldC Oximetry 97 % oxygen saturation, oximetry Respiratory Rate 20 /min respiratory rate E&M - 9279-1 Weight Measured 276 [lb_av] weight E&M - 3141-9 Body Temperature 36.8 [place] temperature in centigrade E&M BSA (Body Surface Area) 2.20 body surface area Height 160.02 cm height in centimeters E&M Weight Measured 122.73 kg weight in kilograms E&M
--- OUTSIDE RECORDS SUMMARY | 2018-10-12 11:57 | XMS RPT_ITS | Clinical Summary ---
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) Dyspnea on 49265910 Active Miah M Dyspnea on exertion (SNOMED 11/07 11/[address]) COPD stage 1 370548416 Active Paulette Mild chronic mild (FEV1 (SNOMED 11/02 11/02 Marie Rojas obstructive 80-100%) CT) 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 pulmonary 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 Chronic pain 30370242 Active Miah M Chronic pain (SNOMED 08/14 08/[address]) Morbid 142380267 Active Miah M Morbid obesity obesity (SNOMED 08/14 08/[address]) J LUIS 67289835 Active Miah M Obstructive (SNOMED 08/14 08/14 Brown DO sleep apnea CT) syndrome Tobacco 104966576 Active Miah M Tobacco dependence, (SNOMED 08/14 08/14 Brown DO dependence in in remission CT) remission COPD 17222211 Active Miah M Chronic (SNOMED 08/14 08/[address]) lung disease Meniscus 803086950 Active Alice Derangement of degeneration (SNOMED 11/21 11/[address]) Osteoarthriti 914957643 Active Alice Osteoarthritis s, knee, left (SNOMED 11/21 11/[address]) Knee pain, 22613880 Active Alice Knee pain left (SNOMED 11/21 11/[address]) Medications Medication Instructions Start Stop Generic Name NDC Provider Date Date XANAX 0.5 MG TABS twice daily ALPRAZOLAM 74486837544 Alice / [place] XANAX 0.5 MG TABS twice daily ALPRAZOLAM 15202699368 Paulette L /03 07/31 [place] CALCIUM 500 +D CALCIUM 15173385796 Isabela Pollock 500-400 MG-UNIT / CARB-CHOLECALCIFE [place] TABS ROL CALCIUM 500 +D CALCIUM 16012127225 Paulette L 500-400 MG-UNIT /07/31 CARB-CHOLECALCIFE [place] TABS ROL VITAMIN D3 12886 CHOLECALCIFEROL 83132860640 Alice UNIT CAPS / [place] VITAMIN D3 28183 CHOLECALCIFEROL 77668077299 Paulette L UNIT CAPS /07/31 [place] OMEPRAZOLE 20 MG twice daily OMEPRAZOLE 50330347626 Alice TBEC /03 [place] OMEPRAZOLE 20 MG twice daily OMEPRAZOLE 69731716137 Paulette L TBEC /07/31 [place] FUROSEMIDE 20 MG daily FUROSEMIDE 62343592028 Isabela Pollock TABS /03 [place] FUROSEMIDE 20 MG daily FUROSEMIDE 13637728445 Paulette L TABS /07/31 [place] ALENDRONATE 1 every week ALENDRONATE 37356774226 Isabela Pollock SODIUM 70 MG TABS / SODIUM [place] ALENDRONATE 1 every week ALENDRONATE 61378911916 Paulette L SODIUM 70 MG TABS /07/31 SODIUM [place] LISINOPRIL 40 MG twice daily LISINOPRIL 04630074555 Alice TABS /03 [place] LISINOPRIL 40 MG twice daily LISINOPRIL 47626124034 Paulette L TABS /07/31 [place] CARVEDILOL 25 MG twice daily CARVEDILOL 99146980652 Alice TABS / [place] CARVEDILOL 25 MG twice daily CARVEDILOL 62935268276 Paulette L TABS /07/31 [place] CELEXA 40 MG TABS daily CITALOPRAM 99213986502 Alice / HYDROBROMIDE [place] CELEXA 40 MG TABS daily CITALOPRAM 00854886188 Paulette L /07/31 HYDROBROMIDE [place] ALLOPURINOL 300 daily ALLOPURINOL 67023770419 Alice MG TABS / [place] ALLOPURINOL 300 daily ALLOPURINOL 47543415504 Paulette L MG TABS /07/31 [place] IBUPROFEN 200 MG as needed IBUPROFEN 24757976038 Isabela Pollock TABS / [place] SYMBICORT 160-4.5 twice daily BUDESONIDE-FORMOT 20160273480 Isabela Pollock MCG/ACT AERO / HAZEL FUMARATE [place] RESTASIS 0.05 % CYCLOSPORINE 70910586546 Isabela Pollock EMUL / [place] MELOXICAM 7.5 MG as needed MELOXICAM 90126131389 Isabela Pollock TABS [place] PROAIR HFA 108 ALBUTEROL SULFATE 14858722215 Isabela Pollock (90 Base) MCG/ACT /03 [place] AERS MAGNESIUM OXIDE daily MAGNESIUM OXIDE 81025450512 Isabela Pollock 400 MG [place] SIMVASTATIN 40 MG daily SIMVASTATIN 84836736502 Isabela Pollock TABS / [place] FLONASE 50 2 sprays FLUTICASONE 07416545474 Isabela Pollock MCG/ACT SUSP / PROPIONATE [place] SYMBICORT 160-4.5 Two puffs BUDESONIDE-FORMOT 76991359395 Paulette L MCG/ACT AERO twice daily HAZEL FUMARATE [place] SYMBICORT 160-4.5 Two puffs BUDESONIDE-FORMOT 43506088707 Miah M MCG/ACT AERO twice daily / 4/19 HAZEL FUMARATE Brown DO DIPHENHYDRAMINE twice daily DIPHENHYDRAMINE 12488991752 Isabela Pololck HCL 25 MG CAPS / HCL [place] GABAPENTIN 300 MG three times a GABAPENTIN 54712945891 Isabela Pollock CAPS day [place] CYCLOBENZAPRINE three times a CYCLOBENZAPRINE 31416497582 Isabela Pollock HCL 10 MG TABS HCL [place] ASPIRIN 81 MG daily ASPIRIN 95773019650 Isabela Pollock ORAL TABS [place] IBUPROFEN 200 MG Four caps IBUPROFEN 61312020956 Paulette L TABS twice daily [place] needed RESTASIS 0.05 % One drop in CYCLOSPORINE 12979187599 Paulette L EMUL both eyes / [place] twice daily MELOXICAM 7.5 MG One tab every MELOXICAM 32801423514 Paulette L TABS saturday [place] PROAIR HFA 108 Two puffs ALBUTEROL SULFATE 10589302016 Paulette L (90 Base) MCG/ACT every 6 hours [place] AERS as needed MAGNESIUM OXIDE One tab twice MAGNESIUM OXIDE 26493268611 Paulette L 400 MG CAPS daily [place] SIMVASTATIN 40 MG One tab at SIMVASTATIN 52575411156 Paulette L TABS bedtime [place] FLONASE 50 2 sprays in FLUTICASONE Paulette L MCG/ACT SUSP each nostril PROPIONATE daily CETRAXAL 0.2 % 0.25 twiced CIPROFLOXACIN HCL 92440199171 Paulette L SOLN daily [place] PRED MILD 0.12 % One drop in PREDNISOLONE 13245033671 Paulette L SUSP both eyes ACETATE [place] times daily ACULAR LS 0.4 % One drop KETOROLAC 11838274473 Paulette L SOLN TROMETHAMINE [place] WELLBUTRIN XL 150 One tab once BUPROPION HCL 50580236557 Paulette L MG [id number] daily for [place] anxiety, depression ZYLOPRIM 300 MG One tab once ALLOPURINOL 74826129199 Paulette L TABS daily for gout Lino COREG 25 MG TABS One tab twice CARVEDILOL 91176613796 Paulette L daily [place] CELEXA 40 MG TABS One tab once CITALOPRAM 22570992171 Paulette L daily HYDROBROMIDE [place] K-TAB 10 MEQ One tab twice POTASSIUM 85378382595 Paulette L CR-TABS daily CHLORIDE Lino CALCIUM 500+D3 One tab twice CALCIUM 37932436723 Paulette L 500-400 MG-UNIT daily CARB-CHOLECALCIFE [place] TABS ROL PRILOSEC 20 MG One cap twice OMEPRAZOLE 42722060608 Paulette Nunez CPDR daily [place] TRAZODONE HCL 50 One tablet by TRAZODONE HCL 12533967274 Jayshree M MG TABS mouth at Chip night ALPRAZOLAM 0.5 MG One tablet by ALPRAZOLAM 37385582227 Jayshree M TABS mouth as Chip needed [...] NHIS SMOK STATUS Former smoker Tobacco use [facility] Plan of Care Type Date Detail Appointment 03:00 PM Mehreen Villagran, [address] [facility], [address], [place], [address], Referral Physical Therapy [facility], [address] [place] [address], [address] Referral Physical Therapy [facility], [address] [place] [address], [address] Pending order X-Ray, Spine, Lumbar, complete with [...] Date PFT Pulmonary Function Test - complete CPT-85382 Pulmonary stress testing; simple (eg, 6-minute walk) [...]
--- OUTSIDE RECORDS SUMMARY | 2018-10-12 11:57 | XMS RPT_ITS | Clinical Summary ---
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) Dyspnea on 23237395 Active Miah M Dyspnea on exertion (SNOMED 11/07 11/[address]) COPD stage 1 745792219 Active Paulette Mild chronic mild (FEV1 (SNOMED 11/02 11/02 Marie Rojas obstructive 80-100%) 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 Chronic pain 97225279 Active Miah M Chronic pain (SNOMED 08/14 08/[address]) Morbid 007889027 Active Miah M Morbid obesity obesity (SNOMED 08/14 08/[address]) J LUIS 76435660 Active Miah M Obstructive (SNOMED 08/14 08/[address] apnea [address]) syndrome Tobacco 157910016 Active Miah M Tobacco dependence, (SNOMED 08/14 08/14 Brown DO dependence in in remission CT) remission COPD 46573875 Active Miah M Chronic (SNOMED 08/14 08/[address]) lung disease Meniscus 560915659 Active Isabela Pollock Derangement of degeneration (SNOMED 11/21 11/[address]) Osteoarthriti 955623757 Active Alice Osteoarthritis s, knee, left (SNOMED 11/21 11/[address]) Knee pain, 99910563 Active Alice Knee pain left (SNOMED 11/21 11/[address]) Medications Medication Instructions Start Stop Generic Name ND Provider Date Date XANAX 0.5 MG TABS twice daily ALPRAZOLAM [id number] Alice / [place] XANAX 0.5 MG TABS twice daily ALPRAZOLAM 74879213425 Paulette L /07/31 [place] CALCIUM 500 +D CALCIUM 88310301040 Isabela Pollock 500-400 MG-UNIT / CARB-CHOLECALCIFE [place] TABS ROL CALCIUM 500 +D CALCIUM 28763083812 Paulette L 500-400 MG-UNIT /07/31 CARB-CHOLECALCIFE [place] TABS ROL VITAMIN D3 25464 CHOLECALCIFEROL 35164229935 Alice UNIT CAPS / [place] VITAMIN D3 56865 CHOLECALCIFEROL 52820309760 Paulette L UNIT CAPS /07/31 [place] OMEPRAZOLE 20 MG twice daily OMEPRAZOLE 95540868880 Alice TBEC /03 [place] OMEPRAZOLE 20 MG twice daily OMEPRAZOLE 31769319879 Paulette L TBEC /07/31 [place] FUROSEMIDE 20 MG daily FUROSEMIDE 42900517651 Alice TABS /03 [place] FUROSEMIDE 20 MG daily FUROSEMIDE 21627013758 Paulette L TABS /07/31 [place] ALENDRONATE 1 every week ALENDRONATE 58253483213 Alice SODIUM 70 MG TABS / SODIUM [place] ALENDRONATE 1 every week ALENDRONATE 75702099660 Paulette L SODIUM 70 MG TABS /07/31 SODIUM [place] LISINOPRIL 40 MG twice daily LISINOPRIL 73308195165 Alice TABS /03 [place] LISINOPRIL 40 MG twice daily LISINOPRIL 02363414800 Paulette L TABS /07/31 [place] CARVEDILOL 25 MG twice daily CARVEDILOL 02460662867 Alice TABS / [place] CARVEDILOL 25 MG twice daily CARVEDILOL 28366882573 Paulette L TABS /07/31 [place] CELEXA 40 MG TABS daily CITALOPRAM 09226008038 Alice / HYDROBROMIDE [place] CELEXA 40 MG TABS daily CITALOPRAM 34383753375 Paulette L /07/31 HYDROBROMIDE [place] ALLOPURINOL 300 daily ALLOPURINOL 05408214735 Alice MG TABS / [place] ALLOPURINOL 300 daily ALLOPURINOL 95255870787 Paulette L MG TABS /07/31 [place] IBUPROFEN 200 MG as needed IBUPROFEN 60496749772 Isabela Pollock TABS / [place] SYMBICORT 160-4.5 twice daily BUDESONIDE-FORMOT 12196751851 Isabela Pollock MCG/ACT AERO / HAZEL FUMARATE [place] RESTASIS 0.05 % CYCLOSPORINE 22200243809 Isabela Pollock EMUL / [place] MELOXICAM 7.5 MG as needed MELOXICAM 37187275483 Isabela Pollock TABS / [place] PROAIR HFA 108 ALBUTEROL SULFATE 76223174889 Isabela Pollock (90 Base) MCG/ACT /03 [place] AERS MAGNESIUM OXIDE daily MAGNESIUM OXIDE 39802795971 Isabela Pollock 400 MG CAPS / [place] SIMVASTATIN 40 MG daily SIMVASTATIN 33495852344 Isabela Pollock TABS / [place] FLONASE 50 2 sprays FLUTICASONE 38904152849 Isabela Pollock MCG/ACT SUSP / PROPIONATE [place] SYMBICORT 160-4.5 Two puffs BUDESONIDE-FORMOT 58025600858 Paulette L MCG/ACT AERO twice daily HAZEL FUMARATE [place] SYMBICORT 160-4.5 Two puffs BUDESONIDE-FORMOT 58574325239 Miah M MCG/ACT AERO twice daily /11/07 HAZEL FUMARATE Brown DO DIPHENHYDRAMINE twice daily DIPHENHYDRAMINE 11568642448 Isabela Pollock HCL 25 MG CAPS / HCL [place] GABAPENTIN 300 MG three times a GABAPENTIN 81134642799 Isabela Pollock CAPS day [place] CYCLOBENZAPRINE three times a CYCLOBENZAPRINE 53676476382 Isabela Pollock HCL 10 MG TABS day HCL [place] ASPIRIN 81 MG daily ASPIRIN 25248285304 Isabela Pollock ORAL TABS [place] IBUPROFEN 200 MG Four caps IBUPROFEN 57465957592 Paulette L TABS twice daily [place] needed RESTASIS 0.05 % One drop in CYCLOSPORINE 23437904458 Paulette L EMUL both eyes / [place] twice daily MELOXICAM 7.5 MG One tab every MELOXICAM 12647069645 Paulette L TABS saturday [place] PROAIR HFA 108 Two puffs ALBUTEROL SULFATE 33134234805 Paulette L (90 Base) MCG/ACT every 6 hours / [place] AERS as needed MAGNESIUM OXIDE One tab twice MAGNESIUM OXIDE 07088126006 Paulette L 400 MG CAPS daily [place] SIMVASTATIN 40 MG One tab at SIMVASTATIN 06498795218 Paulette L TABS bedtime [place] FLONASE 50 2 sprays in FLUTICASONE Paulette L MCG/ACT SUSP each nostril PROPIONATE daily CETRAXAL 0.2 % 0.25 twiced CIPROFLOXACIN HCL 61757321444 Paulette L SOLN daily PRED MILD 0.12 % One drop in PREDNISOLONE 94431862282 Paulette L SUSP both eyes ACETATE [place] times daily ACULAR LS 0.4 % One drop KETOROLAC 11058271975 Paulette L SOLN TROMETHAMINE WELLBUTRIN XL 150 One tab once BUPROPION HCL 13899038820 Paulette L MG [id number] daily for L[place] anxiety, depression ZYLOPRIM 300 MG One tab once ALLOPURINOL 77222062016 Paulette L TABS daily for gout [place] COREG 25 MG TABS One tab twice CARVEDILOL 86639120404 Paulette L daily [place] CELEXA 40 MG TABS One tab once CITALOPRAM 74071398705 Paulette L daily HYDROBROMIDE [place] K-TAB 10 MEQ One tab twice POTASSIUM 07441430844 Paulette L CR-TABS daily CHLORIDE Lino CALCIUM 500+D3 One tab twice CALCIUM 71096389740 Paulette L 500-400 MG-UNIT daily CARB-CHOLECALCIFE [place] TABS ROL PRILOSEC 20 MG One cap twice OMEPRAZOLE 41938591429 Paulette L CPDR daily [place] TRAZODONE HCL 50 One tablet by TRAZODONE HCL 75582525678 Jayshree M MG TABS mouth at Chip night ALPRAZOLAM 0.5 MG One tablet by ALPRAZOLAM 09353860707 Jayshree M TABS mouth Chip needed Medications Administered No information available. Allergies, Adverse Reactions, Alerts Allergy Name Reaction Start Date Severity Status Provider Description SEASONAL Mild Active Paulette Huynh ALLERGIES IODINATED Itching Mild Active Paulette L Lino CONTRAST DURAGESIC-25 Itching Mild Active Paulette L Lino Results Date Name Value Unit Range Flag Description Office Visit SMOK ADVICE yes Smoking cessation education (procedure) Office Visit: J LUIS ORALTOBACUSE Never Tobacco smoking status NHIS SMOK STATUS Former smoker Tobacco use [facility] Office Visit: Spine Visit MEDS REVIEW Done Documentation of current medications (procedure) Plan of Care Type Date Detail Appointment 12:30 PM Mehreen Villagran, [address] [place] [address], [address], [place], [address], Appointment 03:30 PM Mehreen Villagran, [address] [place] [address], [address], [place], [address], Appointment 01:30 PM Flower 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
--- OUTSIDE RECORDS SUMMARY | 2018-10-12 11:57 | XMS RPT_ITS | Clinical Summary ---
:1955 Author Organization [employer] [facility] Address [address] [place] [address] Phone Care Team Providers Name Role Phone Paulette Molina N Unavailable Conditions or Problems Problem Name Problem Onset Status Entry Provider Comment Standard Annotate Code Date Date Description Back pain, 788435658 Active Mehreen M Lumbar lumbar, with (SNOMED 11/27 11/27 Villagran [address]icul[address] CT) Dyspnea on [id number] Active Miah M Dyspnea on exertion (SNOMED 11/07 11/[address]) COPD stage 1 [id number] Active Paulette Mild chronic mild (FEV1 (SNOMED 11/02 11/02 Marie Rojas obstructive 80-100%) CT) 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 Chronic pain 74455360 Active Miah M Chronic pain (SNOMED 08/14 08/[address]) Morbid 399178748 Active Miah M Morbid obesity obesity (SNOMED 08/14 08/[address]) J LUIS 56269836 Active Miah M Obstructive (SNOMED 08/14 08/14 Brown DO sleep apnea CT) syndrome Tobacco 587409855 Active Miah M Tobacco dependence, (SNOMED 08/14 08/14 Brown DO dependence in in remission CT) remission COPD 49958466 Active Miah M Chronic (SNOMED 08/14 08/[address]) lung disease Meniscus 630767893 Active Alice Derangement of degeneration (SNOMED 11/21 11/[address]) Osteoarthriti 574825902 Active Alice Osteoarthritis s, knee, left (SNOMED 11/21 11/21 [facility] of knee CT) Knee pain, 05603532 Active Alice Knee pain left (SNOMED 11/21 11/[address]) Medications Medication Instructions Start Stop Generic Name NDC Provider Date Date XANAX 0.5 MG TABS twice daily ALPRAZOLAM [id number] Alice / [place] XANAX 0.5 MG TABS twice daily ALPRAZOLAM 42722976254 Paulette L /03 07/31 [place] CALCIUM 500 +D CALCIUM 87613918179 Isabela Pollock 500-400 MG-UNIT / CARB-CHOLECALCIFE [place] TABS ROL CALCIUM 500 +D CALCIUM 97718426300 Paulette L 500-400 MG-UNIT /07/31 CARB-CHOLECALCIFE [place] TABS ROL VITAMIN D3 08411 CHOLECALCIFEROL 21575830832 Alice UNIT CAPS / [place] VITAMIN D3 14458 CHOLECALCIFEROL 74538858848 Paulette L UNIT CAPS /03 07/31 [place] OMEPRAZOLE 20 MG twice daily OMEPRAZOLE 42185481787 Alice TBEC / [place] OMEPRAZOLE 20 MG twice daily OMEPRAZOLE 91105044310 Paulette L TBEC /07/31 [place] FUROSEMIDE 20 MG daily FUROSEMIDE 04520612096 [place] TABS /03 [place] FUROSEMIDE 20 MG daily FUROSEMIDE 15996917486 Paulette L TABS /07/31 [place] ALENDRONATE 1 every week ALENDRONATE 07650817500 Alice SODIUM 70 MG TABS / SODIUM [place] ALENDRONATE 1 every week ALENDRONATE 21412239583 Paulette L SODIUM 70 MG TABS /07/31 SODIUM [place] LISINOPRIL 40 MG twice daily LISINOPRIL 21169119774 Alice TABS /03 [place] LISINOPRIL 40 MG twice daily LISINOPRIL 76685615280 Paulette L TABS /07/31 [place] CARVEDILOL 25 MG twice daily CARVEDILOL 56457984718 Alice TABS / [place] CARVEDILOL 25 MG twice daily CARVEDILOL 05162840950 Paulette L TABS 07/31 [place] CELEXA 40 MG TABS daily CITALOPRAM 74882645352 Alice / HYDROBROMIDE [place] CELEXA 40 MG TABS daily CITALOPRAM 92733296508 Paulette L /07/31 HYDROBROMIDE [place] ALLOPURINOL 300 daily ALLOPURINOL 17875474211 Alice MG TABS [place] ALLOPURINOL 300 daily ALLOPURINOL 46980708007 Paulette L MG TABS /07/31 [place] IBUPROFEN 200 MG as needed IBUPROFEN 57305021020 Isabela Pollock TABS / [place] SYMBICORT 160-4.5 twice daily BUDESONIDE-FORMOT 17795362215 Isabela Pollock MCG/ACT AERO / HAZEL FUMARATE [place] RESTASIS 0.05 % CYCLOSPORINE 18517690339 Isabela Pollock EMUL / [place] MELOXICAM 7.5 MG as needed MELOXICAM 99692359426 Isabela Pollock TABS [place] PROAIR HFA 108 ALBUTEROL SULFATE 98005039674 Isabela Pollock (90 Base) MCG/ACT /03 [place] AERS MAGNESIUM OXIDE daily MAGNESIUM OXIDE 31782918283 Isabela Pollock 400 MG CAPS [place] SIMVASTATIN 40 MG daily SIMVASTATIN 14320529314 Isabela Pollock TABS / [place] FLONASE 50 2 sprays FLUTICASONE 84535405625 Isabela Pollock MCG/ACT SUSP / PROPIONATE [place] SYMBICORT 160-4.5 Two puffs BUDESONIDE-FORMOT 37365155834 Paulette L MCG/ACT AERO twice daily HAZEL FUMARATE [place] SYMBICORT 160-4.5 Two puffs BUDESONIDE-FORMOT 11416979555 Miah Lozoya MCG/ACT AERO twice daily /11/07 HAZEL FUMARATE Brown DO DIPHENHYDRAMINE twice daily DIPHENHYDRAMINE 18209544623 Isabela Pollock HCL 25 MG CAPS / HCL [place] GABAPENTIN 300 MG three times a GABAPENTIN 53725491169 Isabela Pollock CAPS day [place] CYCLOBENZAPRINE three times a CYCLOBENZAPRINE 00695775113 Isabela Pollock HCL 10 MG TABS HCL [place] ASPIRIN 81 MG daily ASPIRIN 84762580924 Isabela Pollock ORAL TABS [place] IBUPROFEN 200 MG Four caps IBUPROFEN 64089658701 Paulette L TABS twice daily [place] needed RESTASIS 0.05 % One drop in CYCLOSPORINE 40449248570 Paulette L EMUL both eyes / [place] twice daily MELOXICAM 7.5 MG One tab every MELOXICAM 19540195710 Paulette L TABS saturday [place] PROAIR HFA 108 Two puffs ALBUTEROL SULFATE 78919306429 Paulette L (90 Base) MCG/ACT every 6 hours / [place] AERS as needed MAGNESIUM OXIDE One tab twice MAGNESIUM OXIDE 64912064580 Paulette L 400 MG CAPS daily [place] SIMVASTATIN 40 MG One tab at SIMVASTATIN 52298073608 Paulette L TABS bedtime [place] FLONASE 50 2 sprays in FLUTICASONE Paulette L MCG/ACT SUSP each nostril / PROPIONATE [place] daily CETRAXAL 0.2 % 0.25 twiced CIPROFLOXACIN HCL 79304405382 Paulette L SOLN daily [place] PRED MILD 0.12 % One drop in PREDNISOLONE 91560141981 Paulette L SUSP both eyes ACETATE [place] times daily ACULAR LS 0.4 % One drop KETOROLAC 66098849167 Paulette L SOLN TROMETHAMINE WELLBUTRIN XL 150 One tab once BUPROPION HCL 86234422176 Paulette L MG AM75V-YER daily for [place] anxiety, depression ZYLOPRIM 300 MG One tab once ALLOPURINOL 18256759846 Paulette L TABS daily for gout [place] COREG 25 MG TABS One tab twice CARVEDILOL 99763284450 Paulette L daily [place] CELEXA 40 MG TABS One tab once CITALOPRAM 53501342198 Paulette L daily HYDROBROMIDE [place] K-TAB 10 MEQ One tab twice POTASSIUM 92135089166 Paulette L CR-TABS daily CHLORIDE L[place] CALCIUM 500+D3 One tab twice CALCIUM 99303100398 Paulette L 500-400 MG-UNIT daily CARB-CHOLECALCIFE [place] TABS ROL PRILOSEC 20 MG One cap twice OMEPRAZOLE 62335088695 Paulette L CPDR daily [place] TRAZODONE HCL 50 One tablet by TRAZODONE HCL 78186800076 Jayshree M MG TABS mouth at [place] night ALPRAZOLAM 0.5 MG One tablet by ALPRAZOLAM 44612506998 Jayshree M TABS mouth [place] needed Medications [...] Detail Appointment 03:30 PM Mehreen Villagran, [address], [address], [place], [address], Appointment 01:30 PM [facility], [address], [address], [place], [address] Referral [facility], [address] [place] [address], [phone] Referral [facility], [address] [place] [address], [phone] Pending order X-Ray, Spine, Lumbar, complete with [...] Date PFT Pulmonary Function Test - complete [id number] Pulmonary stress testing; simple (eg, 6-minute walk) [...]
--- OUTSIDE RECORDS SUMMARY | 2018-10-12 11:58 | XMS RPT_ITS ---
:1955 Author Organization OHIP Care Team Providers Name Role Phone Surya Jain Primary Care Unavailable Rachel Bo Admitting Unavailable Rojas Saunders Consulting Unavailable Barry Carlton Attending Unavailable Ruperto, Catracho Primary Care Unavailable Aurea Keys Attending Unavailable Bhargavi, Jojo Attending Unavailable Randall Hooks Attending Unavailable Frischkorn, Jojo Primary Care Unavailable Frischkorn, Jojo Attending Unavailable Ruperto, Catracho Primary Care Unavailable Frischkorn, Jojo Attending Unavailable Ruperto, Catracho Primary Care Unavailable Frischkorn, Jojo Attending Unavailable Ruperto, Catracho Primary Care Unavailable Frischkorn, Jojo Attending Unavailable Ruperto, Catracho Primary Care Unavailable LORI LOO (STORE PERSON) Attending Unavailable ANGIE KAPOOR ([facility]) Attending Unavailable AJ ZUNIGA Referring Unavailable SURYA JAIN Attending Unavailable SURYA JAIN H Referring Unavailable VETOVITZ, KIARA ([place]) Referring Unavailable KIARA RUIZ (PA) Attending Unavailable OLDER, LORI (STORE PERSON) Referring Unavailable OLDER, LORI (STORE PERSON) Attending Unavailable JAIN, CATRACHO Referring Unavailable OLDER, LORI (STORE PERSON) Attending Unavailable KAPOORANGIE KAPOOR (STORE PERSON) Attending Unavailable MOUL, AJ E Referring Unavailable MOUL, AJ E Attending Unavailable MOUL, AJ E Referring Unavailable JAIN, CATRACHO Attending Unavailable JAIN, CATRACHO Referring Unavailable JAIN, CATRACHO Referring Unavailable JAIN, CATRACHO Referring Unavailable Basali, Ayman Attending Unavailable Basali, Aaronman Referring Unavailable Jain, Surya Primary Care Unavailable Basali, Ayman Attending Unavailable Basali, Ayman Referring Unavailable Jain, Surya Primary Care Unavailable PROBLEMS PROBLEMS DATE TYPE CONDITION / CODE ATTENDING STATUS SOURCE 07/16/2018 Active Encounter for NA Active [facility] screening mammogram [place] for malignant Repository neoplasm of breast / Z12.31(ICD-10) 07/07/2018 Active Age-related NA Active [facility] osteoporosis without [place] current pathological Repository fracture / M81.0(ICD-10) 10/31/2016 Active Restless legs MOUL, AJ E Active [facility] syndrome / [place] G25.81(ICD-10) Repository 10/31/2016 Active Hypertrophy of MOUL, AJ E Active [facility] tonsils / [place] J35.1(ICD-10) Repository 06/14/2015 Active Body mass index MOUL, AJ E Active [facility] (BMI) 45.0-49.9, [place] adult / Repository Z68.42(ICD-10) 06/14/2015 Active Other specified MOUL, AJ E Active [facility] anxiety disorders / [place] F41.8(ICD-10) Repository 06/13/2015 Active Obstructive sleep MOUL, AJ E Active [facility] apnea (adult) [place] (pediatric) / Repository G47.33(ICD-10) 01/27/2014 Active Vitamin D MOUL, AJ E Active [facility] deficiency, [place] unspecified / Repository E55.9(ICD-10) 07/02/2018 Active Insomnia due to MOUL, AJ E Active [facility] medical condition / [place] G47.01(ICD-10) Repository 07/02/2018 Active Circadian rhythm AJ ZUNIGA E Active [facility] sleep disorder, [place] delayed sleep phase Repository type / G47.21(ICD-10) 07/02/2018 Active Chronic obstructive MOUL, AJ E Active [facility] pulmonary disease, [place] unspecified / Repository J44.9(ICD-10) 04/28/2018 Active Pain in left knee / NA Active [facility] M25.562(ICD-10) [place] Repository 10/20/2013 Active Gout, unspecified / NA Active [facility] M10.9(ICD-10) [place] Repository 04/10/2018 Active Essential (primary) NA Active [facility] hypertension / [place] I10(ICD-10) Repository 04/10/2018 Active Other hyperlipidemia NA Active [facility] / E78.4(ICD-10) [place] Repository 04/10/2018 Active Unknown / RUPERTO Active [facility] UNK(Unknown) SURYA Mccarty [place] Repository PROCEDURES PROCEDURES No Procedure Records FoundRESULTS RESULTS KNEE 4 OR MORE Observed: 08/07/2018 Status: F Source: JUNIOR VIEWS 4:[address] [facility] REPOSITORY [facility] Imaging Services [address] [place] [id number] Knee 4 or More Views MR#: [id number] Acct: [id number] Name: DARIANA ROBERTS Rep #: [id number] : 1955 F 63 From: Sierra Crespo MD PCP: Surya Jain MD Status: REG CLI Study: Knee 4 or More Views Date of Exam: 08/07/18 Exam# [id number] Ordering Dr: Yvette Montana MD STUDY: X-RAY - LEFT KNEE REASON FOR EXAM: Female, 63 years old. Left knee pain TECHNIQUE: 4 view(s) of the knee. COMPARISON: 11/22/2015 FINDINGS: Normal visualized distal femur. Normal visualized proximal tibia and fibula. Normal proximal tibiofibular articulation. Stable spurring along the tibial spine and femoral notch. There is stable mild to moderate moderate degenerative arthrosis of the medial femorotibial compartment with moderate joint space narrowing. There is stable severe degenerative arthrosis of the lateral femorotibial compartment with severe joint space narrowing. Normal patellofemoral articulation. There is no demonstrated joint effusion. Morbid obesity. RAD/Knee 4 or More Views IMPRESSION: No significant change of predominantly left severe lateral femorotibial degeneration. Electronically Signed: Sierra Crespo MD at 6:45 EST , Service support , CC: Yvette Montana MD; Surya Jain MD Wafer Polishing Lead Worker: Signed CNPN Observed: 07/23/2018 Status: COMPLETED Source: [place] 12:00 AM [facility] REPOSITORY Telephone (INTMWS) DARIANA ROBERTS ([id number]) 1955 F Date Time Provider Department 07/23/18 SURYA JAIN INTJF During your visit today, we recorded the following information about you: Tenisha Elaine [facility] 07/23/2018 9:02 AM Signed ----- Message from Surya Jain sent at 07/21/2018 12:49 AM EST ----- Osteoporosis. Start Fosamax 70 mg once a week. #12, 3 refills. Tenisha Elaine [facility] 07/23/2018 9:31 AM Signed Left message for patient to call office back and to ask to speak with a nurse. Order pended please send to PCP to file when patient is notified. Thank you. Tenisha Elaine [facility] Pavan Rodas LPN 07/23/2018 1:38 PM Signed Patient notified of the same and verbalizes understanding. Please send this to [facility]. Allergies As of Date: 07/23/2018 Noted Allergy Reaction DURAGESIC (FENTANYL) 01/18/2016 9 - Itching IODINATED CONTRAST- ORAL AND IV D*05/31/2015 9 - Itching SEASONAL ALLERGIES 08/27/2012 16 - Unknown Date Reviewed: 07/07/2018 Reviewed by: Sushma Martinez LPN - Fully Assessed Reason for Visit: Results [95] Primary Visit Diagnosis:Osteoporosis, unspecified osteoporosis type, unspecified pathological fracture presence [M81.0] Order(s):alendronate (FOSAMAX) 70 mg tabletTake 1 tablet by mouth once each week. Take with a full glass of water, on an empty stomach; do NOT lie down for 30minutes.Disp: 12 tabletRfl: 3 Prescriptions as of 07/23/2018 Sig: ALBUTEROL SULFATE HFA 90 MCG/* inhale 2 puffs by mouth every* ALENDRONATE 70 MG TABLET Take 1 tablet by mouth once e* ALLOPURINOL 300 MG TABLET take 1 tablet by mouth once d* ALPRAZOLAM 0.5 MG TABLET Take 1 tablet by mouth at bed* ASPIRIN 81 MG TABLET,DELAYED * Take 1 tablet by mouth once d* ATORVASTATIN 20 MG TABLET Take 1 tablet by mouth daily * BIPAP Change BIPAP to 16/10 cmH2O, * BIPAP New supplies: suitable mask * BUDESONIDE-FORMOTEROL HFA 80 * Inhale 2 Puffs as instructed * BUPROPION XL 150 MG TAB Take 2 tablets by mouth once * CALCIUM CARB-ERGOCALCIFEROL (* Take 1 tablet by mouth twice * CALCIUM CARBONATE 500 MG (1,2* Take 1 tablet by mouth twice * CARVEDILOL 25 MG TABLET Take 1 tablet by mouth twice * CHOLECALCIFEROL (VITAMIN D3) * Take 1 capsule by mouth once * CITALOPRAM 20 MG TABLET Take 1 tablet by mouth once d* CYCLOBENZAPRINE 10 MG TABLET Take 1 tablet by mouth twice * CYCLOSPORINE 0.05 % EYE DROPS* Use 1 Drop in both eyes twice* FLUTICASONE 50 MCG/ACTUATION * instill 2 sprays into each no* FUROSEMIDE 40 MG TABLET Take 1 tablet by mouth once d* GABAPENTIN 300 MG CAPSULE Take 1 capsule by mouth three* IBUPROFEN 200 MG CAPSULE Take 4 capsules by mouth twic* MAGNESIUM OXIDE 400 MG (241.3* Take 1 tablet by mouth twice * OXYCODONE 7.5 MG-ACETAMINOPHE* As needed. Prescribed by * PANTOPRAZOLE 40 MG TABLET,DEL* TAKE 1 TABLET BY MOUTH ON AN * POTASSIUM CHLORIDE ER 10 MEQ * Take 1 tablet by mouth twice * PRAMIPEXOLE 1 MG TABLET Take 1 tablet by mouth daily * TRAZODONE 100 MG TABLET Take 2 tablets by mouth daily* Problem List As Of Date 07/23/2018 Noted Resolved COPD (chronic obstructive pulmonary disease) [J* Hypertension [I10] Hyperlipidemia [E78.5] Obstructive sleep apnea [G47.33] More... Anxiety disorder [F41.9] 06/13/2015 More... Depression [F32.9] 06/13/2015 Osteoporosis [M81.0] INVALID FOR* More... Arthritis [M19.90] Congestive heart failure (CHF) [I50.9] 06/13/2015 Abdominal aortic ectasia (HCC) [I77.811] 04/07/2015 Carotid stenosis [I65.29] More... Lumbar stenosis [M48.061] INVALID FOR*07/07/2018 Facet arthropathy, lumbar [M47.816] INVALID FOR*07/07/2018 Coccydynia [M53.3] INVALID FOR*04/07/2015 Gout [M10.9] Vitamin D deficiency [E55.9] Severe aortic stenosis [I35.0] 06/10/2015 More... Shortness of breath [R06.02] INVALID FOR*06/13/2015 Abdominal aortic aneurysm (HCC) [I71.4] More... Tobacco use disorder [F17.200] INVALID FOR*06/13/2015 Arteriosclerotic heart disease (ASHD) [I25.10] INVALID FOR*08/03/2015 Secondary pulmonary hypertension (HCC) [UYA5180]INVALID FOR* Pre-op testing [Z01.818] INVALID FOR*06/13/2015 More... Discharge planning issues [Z02.9] INVALID FOR*06/13/2015 More... Allergic reaction [T78.40XA] INVALID FOR*06/10/2015 More... Hypotension [I95.9] INVALID FOR*06/07/2015 More... Hypokalemia [E87.6] INVALID FOR*06/13/2015 ALBERTO (acute kidney injury) (HCC) [N17.9] INVALID FOR*06/10/2015 More... Urinary tract infection without hematuria [N39.*INVALID FOR*06/10/2015 More... SUMMARY INVALID FOR*05/03/2016 More... Hyponatremia [E87.1] INVALID FOR*06/02/2015 More... Metabolic acidosis [E87.2] INVALID FOR*06/02/2015 Hypomagnesemia [E83.42] INVALID FOR*06/02/2015 Depression with anxiety [F41.8] INVALID FOR* More... More... On mechanically assisted ventilation (HCC) [Z99*INVALID FOR*06/07/2015 More... Acute postoperative pain [G89.18] INVALID FOR*06/10/2015 More... Atelectasis [J98.11] INVALID FOR*06/10/2015 More... More... Obesity, Class III, BMI 40-49.9 (morbid obesity* Smoking [F17.200] INVALID FOR*05/03/2016 More... (aortic stenosis) s/p aortic valve replaceme*INVALID FOR* History of aortic valve replacement [Z95.2] INVALID FOR* Synovial cyst of lumbar facet joint [M71.38] INVALID FOR*07/07/2018 Chronic left-sided low back pain with left-side*INVALID FOR* Encephalopathy [G93.40] INVALID FOR*08/08/2016 More... Benzodiazepine dependence (HCC) [F13.20] INVALID FOR*08/08/2016 More... Dysphagia [R13.10] INVALID FOR*08/08/2016 More... Non-STEMI (non-ST elevated myocardial infarctio*INVALID FOR*08/08/2016 More... Anemia [D64.9] INVALID FOR*07/07/2018 Occult GI bleeding [R19.5] INVALID FOR* Posterior fossa hemorrhage [I61.8] INVALID FOR*07/07/2018 More... Tonsillar hypertrophy [J35.1] INVALID FOR* RLS (restless legs syndrome) [G25.81] INVALID FOR* Iron deficiency concern Re: RLS [E61.1] INVALID FOR* GERD (gastroesophageal reflux disease) [K21.9] INVALID FOR* Prescriptions ordered this encounter Disp Refills Start End ALENDRONATE 70 MG TABLET 12 t* 3 07/23/2018 Route: ORAL Sig: Take 1 tablet by mouth once each week. Take with a full glass of water, on an empty stomach; do NOT lie down for 30minutes. Encounter Status:Closed by SURYA JAIN MD on 07/23/18 CNCO Observed: 07/16/2018 Status: COMPLETED Source: [place] 3:45 PM [facility] REPOSITORY HNO ID: [id number] Author: Mammography Coordinator Service: (none) Author Type: Physician Type: Letter Filed: 07/17/2018 11:32 PM Note Text: July 16, 2018 PID: [id number] Dariana MYumiko Roberts [address] [place] [id number] Dear Ms. Roberts, We are pleased to inform you that the results of your recent breast imaging exam on 07/16/2018 are normal. Early detection of cancer is very important. We also understand recommendations regarding breast cancer screening are controversial. Please discuss with your primary care provider which strategy is best for you and whether a mammogram is right for you. Your imaging studies and report will be kept on file at [facility] as part of your permanent medical record and are available for your continuing care. Thank you for allowing us to help in meeting your health care needs. Sincerely, Dr. Gutiérrez Interpreting Radiologist [facility] (Normal over 40) [facility] SCREENING Observed: 07/16/2018 Status: F Source: [place] 3:23 PM [facility] REPOSITORY * * *Final Report* * * DATE OF EXAM: Jul 16 2018 3:23PM WO [id number] - [facility] SCREENING / PROCEDURE REASON: Encounter for screening mammogram for breast cancer * * * * Physician Interpretation * * * * RESULT: #[id number] - [facility] SCREENING BILATERAL DIGITAL SCREENING MAMMOGRAM WITH CAD: 07/16/2018 HISTORY: Encounter For Screening Mammogram For Breast Cancer /patient reports NO breast symptoms /priors available for comparison. RESULT: TECHNIQUE: The study was acquired using full field digital technology and interpreted from soft copy. Current study was also evaluated with a Computer Aided Detection (CAD). Comparison is made to exams dated: 05/15/2016 mammogram, 04/15/2015 mammogram, and 05/05/2013 mammogram - [facility]. There are scattered fibroglandular elements in both breasts. No significant masses, calcifications, or other findings are seen in either breast. There has been no significant interval change. IMPRESSION: There is no mammographic evidence of malignancy. A 1 year screening mammogram is recommended. Rupa Gutiérrez M.D., jr/jana:07/16/2018 15:45:12 Photolettering Machine Operator(s): RT Justin(R)(M), [facility] letter sent: Normal over 40 Mammogram BI-RADS: 1 Negative Multiple national specialty organizations have released breast cancer screening guidelines for women at average risk for developing breast cancer - guidelines that are based on both evidence and opinion, yet differ on when to start and how often to screen for breast cancer. With representation from Breast Imaging, Internal Medicine, Women's Health, Family Medicine, and Medical/Surgical Oncology, the [facility] has carefully reviewed the data and reached the following consensus: 1) All women should engage in shared decision-making with their providers to decide when to start and how often to screen; 2) All women should have the opportunity to start screening mammography at age 40; 3) For women ages 45-55, we recommend annual screening mammograms; 4) For women ages 55 and over, we support both the transition from an annual to a biennial interval if this aligns more with patient's values and preferences, or continuation with annual screening; 5) All women should discuss with their providers when to stop screening mammograms. Wafer Polishing Lead Worker: Jana Transcribe Date/Time: Jul 16 2018 3:24P Dictated by: RUPA GUTIÉRREZ MD This examination was interpreted and the report reviewed and electronically signed by: RUPA GUTIÉRREZ MD on Jul 16 2018 3:45PM EST [id number] Observed: 07/16/2018 Status: COMPLETED Source: [place] 2:55 PM [facility] REPOSITORY HNO ID: [id number] Author: Cady Jenkins Rt Service: (none) Author Type: (none) Type: Progress Notes Filed: 07/16/2018 3:26 PM Note Text: Radiology Service Progress Note PATIENT NAME: Dariana Roberts DATE OF SERVICE: July 16, 2018 TIME: 2:55 PM PATIENT IDENTITY VERIFICATION COMPLETED USING TWO (2) METHODS: Patient confirmed name verbally and Date of . PATIENT GENDER DATA: Female. status: : No status: NO. PATIENT RELEVANT IMPLANT DATA REVIEWED: Not Applicable RADIOLOGY DEPARTMENT: [facility] diane scr mammogram PERIPHERAL IV DATA: Not applicable SIGNED BY: Cady Jenkins Rt July 16, 2018 2:55 PM BD DXA - AXIAL Observed: 07/16/2018 Status: F Source: [place] 2:19 PM [facility] [place] REPOSITORY * * *Final Report* * * DATE OF EXAM: Jul 16 2018 2:19PM WRB [id number] - BD DXA - AXIAL SKELETON - LEFT / PROCEDURE REASON: Osteoporosis, unspecified osteoporosis type, unspecified pathological fracture p * * * * Physician Interpretation * * * * PROCEDURE: BD DXA - AXIAL SKELETON INDICATION: Osteoporosis, unspecified osteoporosis type, unspecified pathological fracture presence TECHNIQUE: Low dose AP spine and hip images COMPARISON: LUMBAR SPINE: The bone mineral density from L1 through L4 is 0.899 grams per square centimeter which yields a T-score of -1.3. . LEFT HIP: The bone mineral density of the total region of the hip is 0.839 grams per square centimeter which yields a T-score of -0.8. . LEFT FEMORAL NECK: The bone mineral density of the femoral neck is 0.527 grams per square centimeter which yields a T-score of -2.9. . 10-year Fracture Risk (FRAX): Major osteoporotic fracture risk 18% Hip fracture risk 4.1% IMPRESSION: Osteoporosis in the left hip. [facility]. CLASSIFICATION OF BONE MASS CLASSIFICATION T-SCORE Normal Greater than -1 Low Bone Mass Between -1 and -2.5 (Osteopenia) Osteoporosis Less than or equal to -2.5 Wafer Polishing Lead Worker: PSCB Transcribe Date/Time: Jul 16 2018 4:08P Dictated by : SHEILA SIMENTAL MD This examination was interpreted and the report reviewed and electronically signed by: SHEILA SIMENTAL MD on Jul 16 2018 4:09PM EST [id number] Observed: 07/16/2018 Status: COMPLETED Source: [place] 2:02 PM [facility] REPOSITORY HNO ID: [id number] Author: Gee Menchaca (Rt) Eliana Montoya Service: (none) Author Type: Research Program Manager Type: Progress Notes Filed: 07/16/2018 2:19 PM Note Text: Radiology Service Progress Note PATIENT NAME: Dariana Roberts DATE OF SERVICE: July 16, 2018 TIME: 2:03 PM PATIENT IDENTITY VERIFICATION COMPLETED USING TWO (2) METHODS: Patient confirmed name verbally and Date of . PATIENT GENDER DATA: Female. status: : No status: NO. PATIENT RELEVANT IMPLANT DATA REVIEWED: Not Applicable RADIOLOGY DEPARTMENT: [facility] bone density PERIPHERAL IV DATA: Not applicable SIGNED BY: RT Drake July 16, 2018 2:03 PM PROGRESS Observed: 07/07/2018 Status: COMPLETED Source: [place] 3:03 PM [facility] REPOSITORY HNO ID: [id number] Author: Surya Jain Service: (none) Author Type: Physician Type: Progress Notes Filed: 07/07/2018 3:23 PM Note Text: This note was created using NoteWriter. Subjective Dariana Roberts was here for follow up. She had no acute concerns. Medication list was reconciled. Discussion was mainly around health maintenance, and she refused colonoscopy due to personal knowledge of someone who had fatal complication. ACTIVE PROBLEM LIST COPD (chronic obstructive pulmonary disease) Hypertension Hyperlipidemia Obstructive Sleep Apnea Osteoporosis Arthritis Carotid Stenosis Gout Vitamin D Deficiency Abdominal Aortic Aneurysm (Hcc) Secondary Pulmonary Hypertension Depression With Anxiety Obesity, Class Iii, Bmi 40-49.9 (Morbid Obesity) (Hcc) (aortic stenosis) s/p aortic valve replacement. History of Aortic Valve Replacement Chronic Left-Sided Low Back Pain With Left-Sided Sciatica Occult GI Bleeding Tonsillar Hypertrophy Rls (Restless Legs Syndrome) Iron deficiency concern Re: RLS Gerd (Gastroesophageal Reflux Disease) Current Outpatient Prescriptions: albuterol HFA (VENTOLIN HFA) 90 mcg/actuation inhaler inhale 2 puffs by mouth every 6 hours if needed for wheezing or shortness of breath allopurinol (ZYLOPRIM) 300 mg tablet take 1 tablet by mouth once daily for GOUT ALPRAZolam (XANAX) 0.5 mg tablet Take 1 tablet by mouth at bedtime as needed. Prescribed by Dr. Pereira aspirin, enteric coated (ADULT LOW DOSE ASPIRIN) 81 mg EC tablet Take 1 tablet by mouth once daily. BIPAP Change BIPAP to 16/10 cmH2O, suitable mask, tubing, humidifier, filters. G478.33 BIPAP New supplies: suitable mask per pt preference, chin strap, head gear, humidity, tubing, lifetime supplies. G47.33 Obstructive Sleep Apnea budesonide-formoterol (SYMBICORT) 80-4.5 mcg/actuation inhaler Inhale 2 Puffs as instructed twice daily. buPROPion XL (WELLBUTRIN XL) 150 mg 24 hr tablet Take 2 tablets by mouth once daily. calcium carbonate-vitamin d2 ([place] CALCIUM-VIT D2) 500 mg(1,250mg) -200 unit tab Take 1 tablet by mouth twice daily. ggccvhe-nxwxizmbm-qgerbvy D3 (CALCIUM 500+D) 500 mg(1,250mg) -200 unit per tablet Take 1 tablet by mouth twice daily. carvedilol (COREG) 25 mg tablet Take 1 tablet by mouth twice daily. Cholecalciferol, Vitamin D3, 1,000 unit cap Take 1 capsule by mouth once daily. citalopram (CELEXA) 20 mg tablet Take 1 tablet by mouth once daily. cyclobenzaprine (FLEXERIL) 10 mg tablet Take 1 tablet by mouth twice daily as needed for Muscle Spasm. cycloSPORINE (RESTASIS) 0.05 % ophthalmic emulsion Use 1 Drop in both eyes twice daily. fluticasone (FLONASE) 50 mcg/actuation nasal spray instill 2 sprays into each nostril once daily furosemide (LASIX) 40 mg tablet Take 1 tablet by mouth once daily. gabapentin (NEURONTIN) 300 mg capsule Take 1 capsule by mouth three times daily for 180 days. Ibuprofen 200 mg cap Take 4 capsules by mouth twice daily as needed. magnesium oxide (MAG-OX) 400 mg (241.3 mg magnesium) tablet Take 1 tablet by mouth twice daily. oxyCODONE-acetaminophen 7.5-325 mg TbBO As needed. Prescribed by Dr. Montana pantoprazole (PROTONIX) 40 mg tablet TAKE 1 TABLET BY MOUTH ON AN EMPTY STOMACH 30 MINUTES BEFORE BREAKFAST potassium chloride (K-TAB) 10 mEq tablet Take 1 tablet by mouth twice daily. pramipexole (MIRAPEX) 1 mg tablet Take 1 tablet by mouth daily at bedtime. traZODone (DESYREL) 100 mg tablet Take 2 tablets by mouth daily at bedtime. atorvastatin (LIPITOR) 20 mg tablet Take 1 tablet by mouth daily at bedtime. Replaces simvastatin for cholesterol. No current facility-administered medications for this visit. Review of Systems Constitutional: Negative. Respiratory: Negative. Cardiovascular: Negative. Gastrointestinal: Negative. Genitourinary: Negative. Musculoskeletal: Positive for arthralgias, back pain and gait problem. Psychiatric/Behavioral: Positive for dysphoric mood and sleep disturbance. Objective BP 126/60 (BP Site: Right Arm, BP Position: Sitting, BP Cuff Size: Large Adult) Pulse 64 Temp 36.5 ?C (97.7 ?F) (Left Tympanic) Resp 16 Wt 122.5 kg (270 lb) BMI 48.21 kg/m? Physical Exam Constitutional: No distress. HENT: Head: Atraumatic. Eyes: Conjunctivae are normal. Neck: No JVD present. Cardiovascular: Normal rate, regular rhythm, S1 normal and S2 normal. No murmur heard. Pulmonary/Chest: Breath sounds normal. Musculoskeletal: She exhibits edema. Neurological: She is alert. Gait abnormal. Ambulatory with cane. Assessment and Plan 1. Essential hypertension - ICD9: 401.9, ICD10: I10 (primary diagnosis) - good control 2. Anemia, unspecified type - ICD9: 285.9, ICD10: D64.9 Stable. 3. Obesity, Class III, BMI 40-49.9 (morbid obesity) (HCC) - ICD9: 278.01, ICD10: E66.01 Weight loss. 4. Obstructive sleep apnea - ICD9: 327.23, ICD10: G47.33 Per sleep medicine. On BiPAP 5. Abdominal aortic aneurysm (AAA) without rupture (HCC) - ICD9: 441.4, ICD10: I71.4 Recheck. - US ABD AORTA 6. Encounter for screening mammogram for breast cancer - ICD9: V76.12, ICD10: Z12.31 - [facility] [facility] SCREENING 7. Hyperlipidemia, unspecified hyperlipidemia type - ICD9: 272.4, ICD10: E78.5 - suboptimal control - Discontinue SIMVASTATIN. - ATORVASTATIN 20 MG TABLET Discussed medication dosage, usage, goals of therapy, and side effects. 8. Osteoporosis, unspecified osteoporosis type, unspecified pathological fracture presence - ICD9: 733.00, ICD10: M81.0 - Off alendronate since 2016. - CALCIUM CARB-ERGOCALCIFEROL (VIT D2) 500 MG (1,250 MG)- 200 UNIT TABLET - DXA-AXIAL SKELETON 9. Aortic valve stenosis, etiology of cardiac valve disease unspecified - ICD9: 424.1, ICD10: I35.0 S/p AVR. 10. Chronic obstructive pulmonary disease, unspecified COPD type (HCC) - ICD9: 496, ICD10: J44.9 Stable. 11. Depression with anxiety - ICD9: 300.4, ICD10: F41.8 I offered referral for counseling. [facility] and counselor. Surya Jain MD CNOV Observed: 07/07/2018 Status: COMPLETED Source: [place] 2:40 PM [facility] REPOSITORY Office Visit (INTMWS) DARIANA ROBERTS ([id number]) 1955 F Date Time Provider Department 07/07/18 2:40 PM SURYA JAIN INTMWS During your visit today, we recorded the following information about you: Temperature Pulse Respiration Blood pressure 97.7 degrees 64/minute 16/minute 126/60 Weight 122.5 kg Surya Jain MD 07/07/2018 3:23 PM Signed This note was created using NoteWriter. Subjective Dariana Roberts was here for follow up. She had no acute concerns. Medication list was reconciled. Discussion was mainly around health maintenance, and she refused colonoscopy due to personal knowledge of someone who had fatal complication. ACTIVE PROBLEM LIST COPD (chronic obstructive pulmonary disease) Hypertension Hyperlipidemia Obstructive Sleep Apnea Osteoporosis Arthritis Carotid Stenosis Gout Vitamin D Deficiency Abdominal Aortic Aneurysm (Hcc) Secondary Pulmonary Hypertension Depression With Anxiety Obesity, Class Iii, Bmi 40-49.9 (Morbid Obesity) (Hcc) (aortic stenosis) s/p aortic valve replacement. History of Aortic Valve Replacement Chronic Left-Sided Low Back Pain With Left-Sided Sciatica Occult GI Bleeding Tonsillar Hypertrophy Rls (Restless Legs Syndrome) Iron deficiency concern Re: RLS Gerd (Gastroesophageal Reflux Disease) Current Outpatient Prescriptions: albuterol HFA (VENTOLIN HFA) 90 mcg/actuation inhaler inhale 2 puffs by mouth every 6 hours if needed for wheezing or shortness of breath allopurinol (ZYLOPRIM) 300 mg tablet take 1 tablet by mouth once daily for GOUT ALPRAZolam (XANAX) 0.5 mg tablet Take 1 tablet by mouth at bedtime as needed. Prescribed by Dr. Pereira aspirin, enteric coated (ADULT LOW DOSE ASPIRIN) 81 mg EC tablet Take 1 tablet by mouth once daily. BIPAP Change BIPAP to 16/10 cmH2O, suitable mask, tubing, humidifier, filters. G478.33 BIPAP New supplies: suitable mask per pt preference, chin strap, head gear, humidity, tubing, lifetime supplies. G47.33 Obstructive Sleep Apnea budesonide-formoterol (SYMBICORT) 80-4.5 mcg/actuation inhaler Inhale 2 Puffs as instructed twice daily. buPROPion XL (WELLBUTRIN XL) 150 mg 24 hr tablet Take 2 tablets by mouth once daily. calcium carbonate-vitamin d2 (OYSTER [place] CALCIUM-VIT D2) 500 mg(1,250mg) -200 unit tab Take 1 tablet by mouth twice daily. tmxoyrc-gzuossqac-vttwghr D3 (CALCIUM 500+D) 500 mg(1,250mg) -200 unit per tablet Take 1 tablet by mouth twice daily. carvedilol (COREG) 25 mg tablet Take 1 tablet by mouth twice daily. Cholecalciferol, Vitamin D3, 1,000 unit cap Take 1 capsule by mouth once daily. citalopram (CELEXA) 20 mg tablet Take 1 tablet by mouth once daily. cyclobenzaprine (FLEXERIL) 10 mg tablet Take 1 tablet by mouth twice daily as needed for Muscle Spasm. cycloSPORINE (RESTASIS) 0.05 % ophthalmic emulsion Use 1 Drop in both eyes twice daily. fluticasone (FLONASE) 50 mcg/actuation nasal spray instill 2 sprays into each nostril once daily furosemide (LASIX) 40 mg tablet Take 1 tablet by mouth once daily. gabapentin (NEURONTIN) 300 mg capsule Take 1 capsule by mouth three times daily for 180 days. Ibuprofen 200 mg cap Take 4 capsules by mouth twice daily as needed. magnesium oxide (MAG-OX) 400 mg (241.3 mg magnesium) tablet Take 1 tablet by mouth twice daily. oxyCODONE-acetaminophen 7.5-325 mg TbBO As needed. Prescribed by Dr. [place] pantoprazole (PROTONIX) 40 mg tablet TAKE 1 TABLET BY MOUTH ON AN EMPTY STOMACH 30 MINUTES BEFORE BREAKFAST potassium chloride (K-TAB) 10 mEq tablet Take 1 tablet by mouth twice daily. pramipexole (MIRAPEX) 1 mg tablet Take 1 tablet by mouth daily at bedtime. traZODone (DESYREL) 100 mg tablet Take 2 tablets by mouth daily at bedtime. atorvastatin (LIPITOR) 20 mg tablet Take 1 tablet by mouth daily at bedtime. Replaces simvastatin for cholesterol. No current facility-administered medications for this visit. Review of Systems Constitutional: Negative. Respiratory: Negative. Cardiovascular: Negative. Gastrointestinal: Negative. Genitourinary: Negative. Musculoskeletal: Positive for arthralgias, back pain and gait problem. Psychiatric/Behavioral: Positive for dysphoric mood and sleep disturbance. Objective BP 126/60 (BP Site: Right Arm, BP Position: Sitting, BP Cuff Size: Large Adult) Pulse 64 Temp 36.5 ?C (97.7 ?F) (Left Tympanic) Resp 16 Wt 122.5 kg (270 lb) BMI 48.21 kg/m? Physical Exam Constitutional: No distress. HENT: Head: Atraumatic. Eyes: Conjunctivae are normal. Neck: No JVD present. Cardiovascular: Normal rate, regular rhythm, S1 normal and S2 normal. No murmur heard. Pulmonary/Chest: Breath sounds normal. Musculoskeletal: She exhibits edema. Neurological: She is alert. Gait abnormal. Ambulatory with cane. Assessment and Plan 1. Essential hypertension - ICD9: 401.9, ICD10: I10 (primary diagnosis) - good control 2. Anemia, unspecified type - ICD9: 285.9, ICD10: D64.9 Stable. 3. Obesity, Class III, BMI 40-49.9 (morbid obesity) (HCC) - ICD9: 278.01, ICD10: E66.01 Weight loss. 4. Obstructive sleep apnea - ICD9: 327.23, ICD10: G47.33 Per sleep medicine. On BiPAP 5. Abdominal aortic aneurysm (AAA) without rupture (HCC) - ICD9: 441.4, ICD10: I71.4 Recheck. - US ABD AORTA 6. Encounter for screening mammogram for breast cancer - ICD9: V76.12, ICD10: Z12.31 - [facility] SCREENING 7. Hyperlipidemia, unspecified hyperlipidemia type - ICD9: 272.4, ICD10: E78.5 - suboptimal control - Discontinue SIMVASTATIN. - ATORVASTATIN 20 MG TABLET Discussed medication dosage, usage, goals of therapy, and side effects. 8. Osteoporosis, unspecified osteoporosis type, unspecified pathological fracture presence - ICD9: 733.00, ICD10: M81.0 - Off alendronate since 2016. - CALCIUM CARB-ERGOCALCIFEROL (VIT D2) 500 MG (1,250 MG)- 200 UNIT TABLET - DXA-AXIAL SKELETON 9. Aortic valve stenosis, etiology of cardiac valve disease unspecified - ICD9: 424.1, ICD10: I35.0 S/p AVR. 10. Chronic obstructive pulmonary disease, unspecified COPD type (HCC) - ICD9: 496, ICD10: J44.9 Stable. 11. Depression with anxiety - ICD9: 300.4, ICD10: F41.8 I offered referral for counseling. [facility] and counselor. Surya Jain MD Referring Provider: SURYA JAIN [[id number]] Allergies As of Date: 07/07/2018 Noted Allergy Reaction DURAGESIC (FENTANYL) 01/18/2016 9 - Itching IODINATED CONTRAST- ORAL AND IV D*05/31/2015 9 - Itching SEASONAL ALLERGIES 08/27/2012 16 - Unknown Date Reviewed: 07/07/2018 Reviewed by: Sushma Martinez LPN - Fully Assessed Reason for Visit: F/U 3 Month [443] Primary Visit Diagnosis:Essential hypertension [I10] Other Visit Diagnoses:Anemia, unspecified type [D64.9] Obesity, Class III, BMI 40-49.9 (morbid obesity) (HCC) [E66.01] Obstructive sleep apnea [G47.33] Abdominal aortic aneurysm (AAA) without rupture (HCC) [I71.4] Encounter for screening mammogram for breast cancer [Z12.31] Hyperlipidemia, unspecified hyperlipidemia type [E78.5] Osteoporosis, unspecified osteoporosis type, unspecified pathological fracture presence [M81.0] Aortic valve stenosis, etiology of cardiac valve disease unspecified [I35.0] Chronic obstructive pulmonary disease, unspecified COPD type (HCC) [J44.9] Depression with anxiety [F41.8] Order(s):MEG SCREENING [[id number]] Order #: [id number] FUTURE US ABD AORTA [[id number]] Order #: [id number] FUTURE atorvastatin (LIPITOR) 20 mg tabletTake 1 tablet by mouth daily at bedtime. Replaces simvastatin for cholesterol.Disp: 30 tabletRfl: 5 DXA-AXIAL SKELETON [[id number]] Order #: [id number] FUTURE Prescriptions as of 07/07/2018 Sig: ALBUTEROL SULFATE HFA 90 MCG/* inhale 2 puffs by mouth every* ALLOPURINOL 300 MG TABLET take 1 tablet by mouth once d* ALPRAZOLAM 0.5 MG TABLET Take 1 tablet by mouth at bed* ASPIRIN 81 MG TABLET,DELAYED * Take 1 tablet by mouth once d* BIPAP Change BIPAP to 16/10 cmH2O, * BIPAP New supplies: suitable mask * BUDESONIDE-FORMOTEROL HFA 80 * Inhale 2 Puffs as instructed * BUPROPION XL 150 MG TAB Take 2 tablets by mouth once * CALCIUM CARB-ERGOCALCIFEROL (* Take 1 tablet by mouth twice * CALCIUM CARBONATE 500 MG (1,2* Take 1 tablet by mouth twice * CARVEDILOL 25 MG TABLET Take 1 tablet by mouth twice * CHOLECALCIFEROL (VITAMIN D3) * Take 1 capsule by mouth once * CITALOPRAM 20 MG TABLET Take 1 tablet by mouth once d* CYCLOBENZAPRINE 10 MG TABLET Take 1 tablet by mouth twice * CYCLOSPORINE 0.05 % EYE DROPS* Use 1 Drop in both eyes twice* FLUTICASONE 50 MCG/ACTUATION * instill 2 sprays into each no* FUROSEMIDE 40 MG TABLET Take 1 tablet by mouth once d* GABAPENTIN 300 MG CAPSULE Take 1 capsule by mouth three* IBUPROFEN 200 MG CAPSULE Take 4 capsules by mouth twic* MAGNESIUM OXIDE 400 MG (241.3* Take 1 tablet by mouth twice * OXYCODONE 7.5 MG-ACETAMINOPHE* As needed. Prescribed by * PANTOPRAZOLE 40 MG TABLET,DEL* TAKE 1 TABLET BY MOUTH ON AN * POTASSIUM CHLORIDE ER 10 MEQ * Take 1 tablet by mouth twice * PRAMIPEXOLE 1 MG TABLET Take 1 tablet by mouth daily * TRAZODONE 100 MG TABLET Take 2 tablets by mouth daily* ATORVASTATIN 20 MG TABLET Take 1 tablet by mouth daily * Problem List As Of Date 07/07/2018 Noted Resolved COPD (chronic obstructive pulmonary disease) [J* Hypertension [I10] Hyperlipidemia [E78.5] Obstructive sleep apnea [G47.33] More... Anxiety disorder [F41.9] 06/13/2015 More... Depression [F32.9] 06/13/2015 Osteoporosis [M81.0] INVALID FOR* More... Arthritis [M19.90] Congestive heart failure (CHF) [I50.9] 06/13/2015 Abdominal aortic ectasia (HCC) [I77.811] 04/07/2015 Carotid stenosis [I65.29] More... Lumbar stenosis [M48.061] INVALID FOR*07/07/2018 Facet arthropathy, lumbar [M47.816] INVALID FOR*07/07/2018 Coccydynia [M53.3] INVALID FOR*04/07/2015 Gout [M10.9] Vitamin D deficiency [E55.9] Severe aortic stenosis [I35.0] 06/10/2015 More... Shortness of breath [R06.02] INVALID FOR*06/13/2015 Abdominal aortic aneurysm (HCC) [I71.4] More... Tobacco use disorder [F17.200] INVALID FOR*06/13/2015 Arteriosclerotic heart disease (ASHD) [I25.10] INVALID FOR*08/03/2015 Secondary pulmonary hypertension (HCC) [ZVI6674]INVALID FOR* Pre-op testing [Z01.818] INVALID FOR*06/13/2015 More... Discharge planning issues [Z02.9] INVALID FOR*06/13/2015 More... Allergic reaction [T78.40XA] INVALID FOR*06/10/2015 More... Hypotension [I95.9] INVALID FOR*06/07/2015 More... Hypokalemia [E87.6] INVALID FOR*06/13/2015 ALBERTO (acute kidney injury) (HCC) [N17.9] INVALID FOR*06/10/2015 More... Urinary tract infection without hematuria [N39.*INVALID FOR*06/10/2015 More... SUMMARY INVALID FOR*05/03/2016 More... Hyponatremia [E87.1] INVALID FOR*06/02/2015 More... Metabolic acidosis [E87.2] INVALID FOR*06/02/2015 Hypomagnesemia [E83.42] INVALID FOR*06/02/2015 Depression with anxiety [F41.8] INVALID FOR* More... More... On mechanically assisted ventilation (HCC) [Z99*INVALID FOR*06/07/2015 More... Acute postoperative pain [G89.18] INVALID FOR*06/10/2015 More... Atelectasis [J98.11] INVALID FOR*06/10/2015 More... More... Obesity, Class III, BMI 40-49.9 (morbid obesity* Smoking [F17.200] INVALID FOR*05/03/2016 More... (aortic stenosis) s/p aortic valve replaceme*INVALID FOR* History of aortic valve replacement [Z95.2] INVALID FOR* Synovial cyst of lumbar facet joint [M71.38] INVALID FOR*07/07/2018 Chronic left-sided low back pain with left-side*INVALID FOR* Encephalopathy [G93.40] INVALID FOR*08/08/2016 More... Benzodiazepine dependence (HCC) [F13.20] INVALID FOR*08/08/2016 More... Dysphagia [R13.10] INVALID FOR*08/08/2016 More... Non-STEMI (non-ST elevated myocardial infarctio*INVALID FOR*08/08/2016 More... Anemia [D64.9] INVALID FOR*07/07/2018 Occult GI bleeding [R19.5] INVALID FOR* Posterior fossa hemorrhage [I61.8] INVALID FOR*07/07/2018 More... Tonsillar hypertrophy [J35.1] INVALID FOR* RLS (restless legs syndrome) [G25.81] INVALID FOR* Iron deficiency concern Re: RLS [E61.1] INVALID FOR* GERD (gastroesophageal reflux disease) [K21.9] INVALID FOR* Prescriptions ordered this encounter Disp Refills Start End ATORVASTATIN 20 MG TABLET 30 t* 5 07/07/2018 Route: ORAL Sig: Take 1 tablet by mouth daily at bedtime. Replaces simvastatin for cholesterol. Medications Discontinued During This Encounter albuterol (PROVENTIL) 5 mg/mL nebu 1 mL 0 09/02/2017 07/07/2018 Class: In Office Route: INHALATION Sig: Inhale 0.5 mL as instructed one time only for 1 dose. 1 DOSE NOW - BACK OFFICE. PLACE 0.5 ML PER DROPPER AND 2.5 ML OF NORMAL SALINE INTO RESERVOIR. Patient not taking: Reported on 07/07/2018 Disc: Reason for discontinue is not on file. CPAP 1 De* 0 07/02/2018 07/07/2018 Class: Print RX Cmt: Sig: Mask refit and optimization, opt [place], G47.33. Patient not taking: Reported on 07/07/2018 Disc: Reason for discontinue is not on file. simvastatin (ZOCOR) 40 mg tablet 90 t* 1 04/10/2018 07/07/2018 Route: ORAL Sig: Take 1 tablet by mouth daily at bedtime. Disc: Changing Therapy/Dosage Form Disposition: Return in about 4 months (around 11/05/2018). Follow-up and Disposition History Recorded Encounter Status:Closed by SURYA JAIN MD on 07/07/18 PROGRESS Observed: 07/02/2018 Status: COMPLETED Source: [place] 1:20 PM [facility] [place] REPOSITORY O ID: [id number] Author: Aj Zuniga Service: (none) Author Type: Physician Type: Progress Notes Filed: 07/02/2018 1:50 PM Note Text: [facility] Follow-up/Established patient visit Reason for Visit on 07/02/18 at [facility] : follow on J LUIS, RLS, insomnia, Circadian disorganization Time Out: 1:47 Time In: 1:24 For this visit, a total pfdh-rd-qgik time with the patient comprised about 25 minutes, with at least 50% of that time devoted to zzyk-np-vedp counseling and coordination of care, with especial emphasis placed on answering the patient?s and/or family?s questions in a form that they can understand and appreciate. Relevant Medications, allergies, hx Reviewed: yes Date of last visit: 04/03/18 with [facility] Insurance: [facility] Home Location: [place] From Last Visit: Impression: G47.33 Obstructive sleep apnea (primary encounter diagnosis) G25.81 RLS (restless legs syndrome) G47.21 Circadian rhythm sleep disorder, delayed sleep phase type F41.9 Anxiety J44.9 Chronic obstructive pulmonary disease, unspecified COPD type (HCC) ? Ms Roberts is a 62 yo female with PMH of AAA, , HLD, HTN, P.HTN, COPD, GERD, iron deficiency, RLS, obesity, depression, and anxiety. She currently takes celexa, trazodone, GBP, Wellbutrin, and oxycodone with insomnia still long standing for many years. Pain and anxiety are multifactorial to clinical picture of insomnia and she is currently followed by pain management. Sleep habits are of notable need for improvement, and she states that she does not have a bed but sleeps in a chair in the common room. Patient does become tearful in office as her stress and anxiety levels are higher then normal with some family factors contributing. Reviewed process C AND S and improvements that can be made to sleep patterns. Addressed anxiety and stress as large contributors to insomnia, and she was seeing a psychiatrist for some time in the past. ? Plan: Sleep apnea: - Continue Bilevel PAP at current settings - order sent for supplies ? Insomnia/ circadian rhythm disorder: - Discussed hyperarousal state and underlying causes of insomnia. Discussed treatment options including medications and CBT. - Continue Trazodone for medical treatment of insomnia- refill provided to start in April - Consult to psychiatrist ? Restless legs: - Nonmedical therapy for restless legs syndrome includes: cold/warm compresses, warm/hot baths or showers, gentle massage, mild leg stretching at nighttime, a bar of soap under the sheets or magnesium supplements (250-500mg twice daily). Mentally alerting activities help too. Note that caffeine, alcohol, antidepressants and antihistamines can cause or worsen symptoms. - Restiffic and Relaxis pad - Continue Mirapex- refills provided ? Anxiety/depression: - Consult psychiatrist - See pt instructions ? ? Follow up in 3 month(s). ? Angie Kapoor APRN.STORE PERSON Psychological/Psychiatric Developments: Some sense of grief about losses. No psychiatrist assigned to her yet. Wants a new psychiatrist. Medical and Neurological Developments: Left knee is getting worse; On the inside is bow-legged. Back problems continue to be a problem. Insomnia: a chronic problem. RLS: continues to be bothersome; The mirapex helped out initially, but faded. Other: na SLEEP-WAKE SCHEDULE Bedtime: from 2 to 5 or 6 am. cannot get tired enough SLEEP LATENCY: not sure. Will lay there, and keep moving legs around. Always scratching, like something is crawling over her. Wake after Sleep Onset up after 2 hours. Wake time: not clear; Starts at 6 till about 3:15 pmn. , without an alarm. On weekends, she maintains the same sleep schedule. Sleep Quality: poor She may nap when playing games on phone, may also take 1/2 to 1 hours nap. Average total sleep time (in a 24 hour period): 4-5 hours atmost across 24 hour. Obstructive Sleep Apnea Issues: Most Recent Apnea-Hypopnea Index: unknown PAP Pressure Setting(s) Bipap 16/10 DME Company: [employer] ? Mask Type: Pillows. Mask Issues: Sits in recliner to sleep, but Has not been using the mask; Needs new mask. Download Report: na Self-Reported Compliance: Not much due to mask issue and location issues Benefit: no SLEEP FUNCTIONAL OUTCOME MEASURES [place] Sleepiness Scale 8 PHQ-9 Depression Scale 24 Insomnia Severity Scale 27 Fatigue Scale 57 Restless Legs Scale Not time enough to do. ALLERGIES Allergen Reactions - Duragesic [Fentanyl] Itching - Iodinated Contrast-* Itching - Seasonal Allergies Unknown CURRENT MEDICATIONS: aspirin, enteric coated (ADULT LOW DOSE ASPIRIN) 81 mg EC tablet Take 1 tablet by mouth once daily. budesonide-formoterol (SYMBICORT) 80-4.5 mcg/actuation inhaler Inhale 2 Puffs as instructed twice daily. furosemide (LASIX) 40 mg tablet Take 1 tablet by mouth once daily. Cholecalciferol, Vitamin D3, 1,000 unit cap Take 1 capsule by mouth once daily. datgqnv-yutulbrvs-gljorot D3 (CALCIUM 500+D) 500 mg(1,250mg) -200 unit per tablet Take 1 tablet by mouth twice daily. traZODone (DESYREL) 100 mg tablet Take 1 tablet by mouth daily at bedtime. pramipexole (MIRAPEX) 0.25 mg tablet Take 2 tablets by mouth daily at bedtime. potassium chloride (K-TAB) 10 mEq tablet Take 1 tablet by mouth twice daily. pantoprazole DR (PROTONIX) 40 mg tablet TAKE 1 TABLET BY MOUTH ON AN EMPTY STOMACH 30 MINUTES BEFORE BREAKFAST albuterol HFA (VENTOLIN HFA) 90 mcg/actuation inhaler inhale 2 puffs by mouth every 6 hours if needed for wheezing or shortness of breath allopurinol (ZYLOPRIM) 300 mg tablet take 1 tablet by mouth once daily for GOUT citalopram (CELEXA) 20 mg tablet Take 1 tablet by mouth once daily. gabapentin (NEURONTIN) 300 mg capsule Take 1 capsule by mouth three times daily for 180 days. carvedilol (COREG) 25 mg tablet Take 1 tablet by mouth twice daily. simvastatin (ZOCOR) 40 mg tablet Take 1 tablet by mouth daily at bedtime. buPROPion XL (WELLBUTRIN XL) 150 mg 24 hr tablet Take 2 tablets by mouth once daily. cyclobenzaprine (FLEXERIL) 10 mg tablet Take 1 tablet by mouth twice daily as needed for Muscle Spasm. magnesium oxide (MAG-OX) 400 mg (241.3 mg magnesium) tablet Take 1 tablet by mouth twice daily. BIPAP New supplies: suitable mask per pt preference, chin strap, head gear, humidity, tubing, lifetime supplies. G47.33 Obstructive Sleep Apnea albuterol (PROVENTIL) 5 mg/mL nebu Inhale 0.5 mL as instructed one time only for 1 dose. 1 DOSE NOW - BACK OFFICE. PLACE 0.5 ML PER DROPPER AND 2.5 ML OF NORMAL SALINE INTO RESERVOIR. oxyCODONE-acetaminophen 7.5-325 mg TbBO As needed. Prescribed by Dr. [place] ALPRAZolam (XANAX) 0.5 mg tablet Take 1 tablet by mouth at bedtime as needed. Prescribed by Dr. Pereira fluticasone (FLONASE) 50 mcg/actuation nasal spray instill 2 sprays into each nostril once daily BIPAP Change BIPAP to 16/10 cmH2O, suitable mask, tubing, humidifier, filters. G478.33 Ibuprofen 200 mg cap Take 4 capsules by mouth twice daily as needed. cycloSPORINE (RESTASIS) 0.05 % ophthalmic emulsion Use 1 Drop in both eyes twice daily. Vital signs: BP 158/66 (BP Site: Right Arm, BP Position: Sitting, BP Cuff Size: Large Adult) Pulse 64 Resp 16 Wt 125.6 kg (277 lb) BMI 49.46 kg/m? MENTAL STATUS General appearance: morbid obese, with rollator Grooming poo Orientation: Ox3 Memory: Grossly intact Kinetics: slower Eye Contact: reduced Demeanor resigned. Speech: Articulate, and bgit raspy Thought Stream some rambling. Not able to be clear about sleep times. Thought Content about how sleep is os poor Mood: dysphoric Affect: depressed Suicidal Ideation: no Homocidal Ideation: No Psychosis no Insight poor Judgment poor ENT : na Abdomen: pannus Neuro: Gait and station with rollator, Strength grossly normal in all extremities. Coordination grossly intact. No tremors noted. Sleep Disorder Dx Impression: Obstructive sleep apnea - severe, most likely last titration a few years go. Psychophysiological insomnia - with some general schedule disorganization. Some increase in trazodone is reasonable. Restless Legs Syndrome - dbenefitted some from the mirapex, can tolerate an increas Other Conditioning Diagnoses: Anxiety/Depression Morbid obesity Abdominal aortic aneurysm Carotic stenosis COPD GERD Secondary Pulmonary HTN Tonsillar hypertrophy VIT D Def. Case Formulation / [place] (may include pt's hopes, fears, expectations, concerns): Pt is without much sense of daily structure, but has some other valid problems. Needs some support to move toward a structure. Actions taken: Motivational Interviewing aspects taken Support. PDMP Aspect: Lela not prescribing Increase mirapex to 1 mg hs. Increase trazodone to 200 mg hs. Mask refit. Plan: See if she can use the Bipap more consistently Get to a regular daily structure. Follow up 2 months. Lela or Prasanna. Aj Zuniga MD CNOV Observed: 07/02/2018 Status: COMPLETED Source: [place] 1:20 PM [facility] REPOSITORY Office Visit (NEMOWS) DARIANA ROBERTS ([id number]) 1955 F Date Time Provider Department 07/02/18 1:20 PM AJ ZUNIGA During your visit today, we recorded the following information about you: Pulse Respiration Blood pressure Weight 64/minute 16/minute 158/66 125.6 kg Aj Zuniga MD 07/02/2018 1:50 PM Signed [facility] Follow-up/Established patient visit Reason for Visit on 07/02/18 at [facility] : follow on J LUIS, RLS, insomnia, Circadian disorganization Time Out: 1:47 Time In: 1:24 For this visit, a total ssii-qo-dhlj time with the patient comprised about 25 minutes, with at least 50% of that time devoted to ivov-vw-ikof counseling and coordination of care, with especial emphasis placed on answering the patient?s and/or family?s questions in a form that they can understand and appreciate. Relevant Medications, allergies, hx Reviewed: yes Date of last visit: 04/03/18 with [employer] Insurance: [employer] Location: [place] From Last Visit: Impression: G47.33 Obstructive sleep apnea (primary encounter diagnosis) G25.81 RLS (restless legs syndrome) G47.21 Circadian rhythm sleep disorder, delayed sleep phase type F41.9 Anxiety J44.9 Chronic obstructive pulmonary disease, unspecified COPD type (HCC) ? Ms Roberts is a 62 yo female with PMH of AAA, , HLD, HTN, P.HTN, COPD, GERD, iron deficiency, RLS, obesity, depression, and anxiety. She currently takes celexa, trazodone, GBP, Wellbutrin, and oxycodone with insomnia still long standing for many years. Pain and anxiety are multifactorial to clinical picture of insomnia and she is currently followed by pain management. Sleep habits are of notable need for improvement, and she states that she does not have a bed but sleeps in a chair in the common room. Patient does become tearful in office as her stress and anxiety levels are higher then normal with some family factors contributing. Reviewed process C AND S and improvements that can be made to sleep patterns. Addressed anxiety and stress as large contributors to insomnia, and she was seeing a psychiatrist for some time in the past. ? Plan: Sleep apnea: - Continue Bilevel PAP at current settings - order sent for supplies ? Insomnia/ circadian rhythm disorder: - Discussed hyperarousal state and underlying causes of insomnia. Discussed treatment options including medications and CBT. - Continue Trazodone for medical treatment of insomnia- refill provided to start in April - Consult to psychiatrist ? Restless legs: - Nonmedical therapy for restless legs syndrome includes: cold/warm compresses, warm/hot baths or showers, gentle massage, mild leg stretching at nighttime, a bar of soap under the sheets or magnesium supplements (250- 500mg twice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 Take 1 tablet by mouth twice daily. simvastatin (ZOCOR) 40 mg tablet Take 1 tablet by mouth daily at bedtime. buPROPion XL (WELLBUTRIN XL) 150 mg 24 hr tablet Take 2 tablets by mouth once daily. magnesium oxide (MAG-OX) 400 mg (241.3 mg magnesium) tablet Take 1 tablet by mouth twice daily. BIPAP New supplies: suitable mask per pt preference, chin strap, head gear, humidity, tubing, lifetime supplies. G47.33 Obstructive Sleep Apnea albuterol (PROVENTIL) 5 mg/mL nebu Inhale 0.5 mL as instructed one time only for 1 dose. 1 DOSE NOW - BACK OFFICE. PLACE 0.5 ML PER DROPPER AND 2.5 ML OF NORMAL SALINE INTO RESERVOIR. oxyCODONE-acetaminophen 7.5-325 mg TbBO As needed. Prescribed by Dr. [place] ALPRAZolam (XANAX) 0.5 mg tablet Take 1 tablet by mouth at bedtime as needed. Prescribed by Dr. Pereira fluticasone (FLONASE) 50 mcg/actuation nasal spray instill 2 sprays into each nostril once daily aspirin, enteric coated (ADULT LOW DOSE ASPIRIN) 81 mg EC tablet Take 1 tablet by mouth once daily. BIPAP Change BIPAP to 16/10 cmH2O, suitable mask, tubing, humidifier, filters. G478.33 Ibuprofen 200 mg cap Take 4 capsules by mouth twice daily as needed. cycloSPORINE (RESTASIS) 0.05 % ophthalmic emulsion Use 1 Drop in both eyes twice daily. citalopram (CELEXA) 20 mg tablet Take 1 tablet by mouth once daily. cyclobenzaprine (FLEXERIL) 10 mg tablet Take 1 tablet by mouth twice daily as needed for Muscle Spasm. No current facility-administered medications for this visit. Review of Systems Constitutional: Negative. Respiratory: Negative. Cardiovascular: Positive for leg swelling. Negative for chest pain and palpitations. Gastrointestinal: Negative. Genitourinary: Negative. Musculoskeletal: Positive for arthralgias, back pain, gait problem and myalgias. Objective BP 155/67 (BP Site: Left Arm, BP Position: Sitting, BP Cuff Size: Regular Adult) Pulse (!) 58 Temp 36.6 ?C (97.9 ?F) (Left Tympanic) Resp 20 Wt 122.3 kg (269 lb 9.6 oz) BMI 47.76 kg/m? Physical Exam Constitutional: No distress. HENT: Head: Normocephalic. Eyes: Conjunctivae are normal. No scleral icterus. Neck: No JVD present. Cardiovascular: Normal heart sounds. Pulmonary/Chest: Breath sounds normal. She has no rales. Musculoskeletal: She exhibits edema. Neurological: She is alert. Gait abnormal. Ambulatory with cane. Assessment and Plan 1. Essential hypertension - ICD9: 401.9, ICD10: I10 (primary diagnosis) - poor control - Continue current medication(s) - Follow up in 1 month for BP recheck. - POTASSIUM CHLORIDE ER 10 MEQ TABLET,EXTENDED RELEASE - CARVEDILOL 25 MG TABLET - MAGNESIUM OXIDE 400 MG (241.3 MG MAGNESIUM) TABLET - CBC - COMP METABOLIC PANEL - MAGNESIUM BLD 2. Need for vaccination - ICD9: V05.9, ICD10: Z23 - ADMIN OF INFLUENZA VACCINE - INFLUENZA VACCINE QUADRIVALENT AGE 3 YRS PLUS + IM 3. Gout, unspecified cause, unspecified chronicity, unspecified site - ICD9: 274.9, ICD10: M10.9 - ALLOPURINOL 300 MG TABLET - URIC ACID BLOOD 4. Other hyperlipidemia - ICD9: 272.4, ICD10: E78.4 - SIMVASTATIN 40 MG TABLET - LIPID PANEL, NONFASTING 5. Depression with anxiety - ICD9: 300.4, ICD10: F41.8 Controlled. I decreased citalopram to avoid toxicity. Patient indicated understanding and willingness to follow recommendations. - TRAZODONE 100 MG TABLET - CITALOPRAM 20 MG TABLET - BUPROPION XL 150 MG TAB 6. Neck pain - ICD9: 723.1, ICD10: M54.2 - CYCLOBENZAPRINE 10 MG TABLET 7. Chronic obstructive pulmonary disease, unspecified COPD type (HCC) - ICD9: 496, ICD10: J44.9 - ALBUTEROL SULFATE HFA 90 MCG/ACTUATION AEROSOL INHALER 8. Osteoporosis, unspecified osteoporosis type, unspecified pathological fracture presence - ICD9: 733.00, ICD10: M81.0 - CALCIUM CARBONATE 500 MG (1,250 MG)-VITAMIN D3 200 UNIT TABLET - VITAMIN D 25 HYDROXY 9. Spinal stenosis of lumbar region, unspecified whether neurogenic claudication present - ICD9: 724.02, ICD10: M48.061 - GABAPENTIN 300 MG CAPSULE 10. RLS (restless legs syndrome) - ICD9: 333.94, ICD10: G25.81 - PRAMIPEXOLE 0.25 MG TABLET 11. Gastroesophageal reflux disease, esophagitis presence not specified - ICD9: 530.81, ICD10: K21.9 - PANTOPRAZOLE 40 MG TABLET,DELAYED RELEASE During this patient visit I have spent approximately 35 minutes out of 45 in coordinating care. Surya Jain MD CNOV Observed: 04/10/2018 Status: COMPLETED Source: [place] 1:00 PM [facility] REPOSITORY Office Visit (INTMWS) DARIANA ROBERTS ([id number]) 1955 F Date Time Provider Department 04/10/18 1:00 PM SURYA JAIN INTMWS During your visit today, we recorded the following information about you: Temperature Pulse Respiration Blood pressure 97.9 degrees 58/minute 20/minute 155/67 Weight 122.3 kg Sushma Martinez LPN 04/10/2018 1:28 PM Signed Influenza Vaccine Documentation: ? Patient is identified by name and date of : Yes ? Patient is older than 6 months of age: Yes ? Patient denies a severe allergy to any vaccine component or to a previous dose of influenza vaccine: Yes FOR EGG ALLERGY CONCERNS, REFER TO PROVIDER. ? Denies allergy to gelatin, formaldehyde, thimerosol :Yes ? Patient is afebrile and not moderately or severely ill: Yes ? Does the patient have a history of Guillain ?[place] Syndrome (a severe paralytic illness): No ? Denies bone marrow transplant prior 6 months or solid organ transplant prior 3 months: Yes ? Denies a history of fainting after a prior injection or medical procedure? Yes If patient has fainted in the past, the CDC recommends sitting or lying down for 15 minutes after the vaccination. ? VIS sheet provided: Yes ? See Immunization Form in [employer] for details of immunizations administered today. If patient reports dizziness, vision changes or ringing in the ears post vaccination ? please have patient sit or lie down for 15 minutes. Surya Jain MD 04/10/2018 2:49 PM Signed This note was created using [employer]. Subjective Dariana Roberts is a 63 year old female here for a 20 minute appointment for medication review, medication refills. She had transportation difficulties and requested medications be sent to [facility] for delivery. She had lived in [place] for several months, but moved back here recently. ACTIVE PROBLEM LIST COPD (chronic obstructive pulmonary disease) Hypertension Hyperlipidemia Obstructive Sleep Apnea Osteoporosis Arthritis Carotid Stenosis Lumbar Stenosis Facet Arthropathy, Lumbar Gout Vitamin D Deficiency Abdominal Aortic Aneurysm (Hcc) Secondary Pulmonary Hypertension Depression With Anxiety Bmi 45.0-49.9, Adult (Hcc) As (Aortic Stenosis) History of Aortic Valve Replacement Synovial Cyst of Lumbar Facet Joint Chronic Left-Sided Low Back Pain With Left-Sided Sciatica Anemia Occult GI Bleeding Posterior Fossa Hemorrhage Tonsillar Hypertrophy Rls (Restless Legs Syndrome) Iron deficiency concern Re: RLS Gerd (Gastroesophageal Reflux Disease) Current Outpatient Prescriptions: lqfufpb-iuupglyfn-rkqhtqi D3 (CALCIUM 500+D) 500 mg(1,250mg) -200 unit per tablet Take 1 tablet by mouth twice daily. [START ON 05/03/2018] traZODone (DESYREL) 100 mg tablet Take 1 tablet by mouth daily at bedtime. pramipexole (MIRAPEX) 0.25 mg tablet Take 2 tablets by mouth daily at bedtime. potassium chloride (K-TAB) 10 mEq tablet Take 1 tablet by mouth twice daily. pantoprazole DR (PROTONIX) 40 mg tablet TAKE 1 TABLET BY MOUTH ON AN EMPTY STOMACH 30 MINUTES BEFORE BREAKFAST albuterol HFA (VENTOLIN HFA) 90 mcg/actuation inhaler inhale 2 puffs by mouth every 6 hours if needed for wheezing or shortness of breath allopurinol (ZYLOPRIM) 300 mg tablet take 1 tablet by mouth once daily for GOUT gabapentin (NEURONTIN) 300 mg capsule Take 1 capsule by mouth three times daily for 180 days. carvedilol (COREG) 25 mg tablet Take 1 tablet by mouth twice daily. simvastatin (ZOCOR) 40 mg tablet Take 1 tablet by mouth daily at bedtime. buPROPion XL (WELLBUTRIN XL) 150 mg 24 hr tablet Take 2 tablets by mouth once daily. magnesium oxide (MAG-OX) 400 mg (241.3 mg magnesium) tablet Take 1 tablet by mouth twice daily. BIPAP New supplies: suitable mask per pt preference, chin strap, head gear, humidity, tubing, lifetime supplies. G47.33 Obstructive Sleep Apnea albuterol (PROVENTIL) 5 mg/mL nebu Inhale 0.5 mL as instructed one time only for 1 dose. 1 DOSE NOW - BACK OFFICE. PLACE 0.5 ML PER DROPPER AND 2.5 ML OF NORMAL SALINE INTO RESERVOIR. oxyCODONE-acetaminophen 7.5-325 mg TbBO As needed. Prescribed by Dr. [place] ALPRAZolam (XANAX) 0.5 mg tablet Take 1 tablet by mouth at bedtime as needed. Prescribed by Dr. Pereira fluticasone (FLONASE) 50 mcg/actuation nasal spray instill 2 sprays into each nostril once daily aspirin, enteric coated (ADULT LOW DOSE ASPIRIN) 81 mg EC tablet Take 1 tablet by mouth once daily. BIPAP Change BIPAP to 16/10 cmH2O, suitable mask, tubing, humidifier, filters. G478.33 Ibuprofen 200 mg cap Take 4 capsules by mouth twice daily as needed. cycloSPORINE (RESTASIS) 0.05 % ophthalmic emulsion Use 1 Drop in both eyes twice daily. citalopram (CELEXA) 20 mg tablet Take 1 tablet by mouth once daily. cyclobenzaprine (FLEXERIL) 10 mg tablet Take 1 tablet by mouth twice daily as needed for Muscle Spasm. No current facility-administered medications for this visit. Review of Systems Constitutional: Negative. Respiratory: Negative. Cardiovascular: Positive for leg swelling. Negative for chest pain and palpitations. Gastrointestinal: Negative. Genitourinary: Negative. Musculoskeletal: Positive for arthralgias, back pain, gait problem and myalgias. Objective BP 155/67 (BP Site: Left Arm, BP Position: Sitting, BP Cuff Size: Regular Adult) Pulse (!) 58 Temp 36.6 ?C (97.9 ?F) (Left Tympanic) Resp 20 Wt 122.3 kg (269 lb 9.6 oz) BMI 47.76 kg/m? Physical Exam Constitutional: No distress. HENT: Head: Normocephalic. Eyes: Conjunctivae are normal. No scleral icterus. Neck: No JVD present. Cardiovascular: Normal heart sounds. Pulmonary/Chest: Breath sounds normal. She has no rales. Musculoskeletal: She exhibits edema. Neurological: She is alert. Gait abnormal. Ambulatory with cane. Assessment and Plan 1. Essential hypertension - ICD9: 401.9, ICD10: I10 (primary diagnosis) - poor control - Continue current medication(s) - Follow up in 1 month for BP recheck. - POTASSIUM CHLORIDE ER 10 MEQ TABLET,EXTENDED RELEASE - CARVEDILOL 25 MG TABLET - MAGNESIUM OXIDE 400 MG (241.3 MG MAGNESIUM) TABLET - CBC - COMP METABOLIC PANEL - MAGNESIUM BLD 2. Need for vaccination - ICD9: V05.9, ICD10: Z23 - ADMIN OF INFLUENZA VACCINE - INFLUENZA VACCINE QUADRIVALENT AGE 3 YRS PLUS + IM 3. Gout, unspecified cause, unspecified chronicity, unspecified site - ICD9: 274.9, ICD10: M10.9 - ALLOPURINOL 300 MG TABLET - URIC ACID BLOOD 4. Other hyperlipidemia - ICD9: 272.4, ICD10: E78.4 - SIMVASTATIN 40 MG TABLET - LIPID PANEL, NONFASTING 5. Depression with anxiety - ICD9: 300.4, ICD10: F41.8 Controlled. I decreased citalopram to avoid toxicity. Patient indicated understanding and willingness to follow recommendations. - TRAZODONE 100 MG TABLET - CITALOPRAM 20 MG TABLET - BUPROPION XL 150 MG TAB 6. Neck pain - ICD9: 723.1, ICD10: M54.2 - CYCLOBENZAPRINE 10 MG TABLET 7. Chronic obstructive pulmonary disease, unspecified COPD type (HCC) - ICD9: 496, ICD10: J44.9 - ALBUTEROL SULFATE HFA 90 MCG/ACTUATION AEROSOL INHALER 8. Osteoporosis, unspecified osteoporosis type, unspecified pathological fracture presence - ICD9: 733.00, ICD10: M81.0 - CALCIUM CARBONATE 500 MG (1,250 MG)-VITAMIN D3 200 UNIT TABLET - VITAMIN D 25 HYDROXY 9. Spinal stenosis of lumbar region, unspecified whether neurogenic claudication present - ICD9: 724.02, ICD10: M48.061 - GABAPENTIN 300 MG CAPSULE 10. RLS (restless legs syndrome) - ICD9: 333.94, ICD10: G25.81 - PRAMIPEXOLE 0.25 MG TABLET 11. Gastroesophageal reflux disease, esophagitis presence not specified - ICD9: 530.81, ICD10: K21.9 - PANTOPRAZOLE 40 MG TABLET,DELAYED RELEASE During this patient visit I have spent approximately 35 minutes out of 45 in coordinating care. Surya Jain MD Referring Provider: SELF [200] Allergies As of Date: 04/10/2018 Noted Allergy Reaction DURAGESIC (FENTANYL) 01/18/2016 9 - Itching IODINATED CONTRAST- ORAL AND IV D*05/31/2015 9 - Itching SEASONAL ALLERGIES 08/27/2012 16 - Unknown Date Reviewed: 04/10/2018 Reviewed by: Sushma Martinez LPN - Fully Assessed Reason for Visit: Medication Follow-up [270] Primary Visit Diagnosis:Essential hypertension [I10] Other Visit Diagnoses:Need for vaccination [Z23] Gout, unspecified cause, unspecified chronicity, unspecified site [M10.9] Other hyperlipidemia [E78.4] Depression with anxiety [F41.8] Neck pain [M54.2] Chronic obstructive pulmonary disease, unspecified COPD type (HCC) [J44.9] Osteoporosis, unspecified osteoporosis type, unspecified pathological fracture presence [M81.0] Spinal stenosis of lumbar region, unspecified whether neurogenic claudication present [M48.061] RLS (restless legs syndrome) [G25.81] Gastroesophageal reflux disease, esophagitis presence not specified [K21.9] Order(s):ADMIN OF INFLUENZA VACCINE [[id number]] Order #: [id number]: 1 INFLUENZA VACCINE QUADRIVALENT AGE 3 YRS PLUS + IM [[id number]] Order #: [id number] orrdbsu-jnbpjpmqn-nwmdhom D3 (CALCIUM 500+D) 500 mg(1,250mg) -200 unit per tabletTake 1 tablet by mouth twice daily.Disp: 180 tabletRfl: 3 [START ON 05/03/2018] traZODone (DESYREL) 100 mg tabletTake 1 tablet by mouth daily at bedtime.Disp: 90 tabletRfl: 1 pramipexole (MIRAPEX) 0.25 mg tabletTake 2 tablets by mouth daily at bedtime.Disp: 180 tabletRfl: 1 potassium chloride (K-TAB) 10 mEq tabletTake 1 tablet by mouth twice daily.Disp: 180 tabletRfl: [address] (PROTONIX) 40 mg tabletTAKE 1 TABLET BY MOUTH ON AN EMPTY STOMACH 30 MINUTES BEFORE BREAKFASTDisp: 90 tabletRfl: 1 albuterol HFA (VENTOLIN HFA) 90 mcg/actuation inhalerinhale 2 puffs by mouth every 6 hours if needed for wheezing or shortness of breathDisp: 3 InhalerRfl: 1 allopurinol (ZYLOPRIM) 300 mg tablettake 1 tablet by mouth once daily for GOUTDisp: 90 tabletRfl: 1 citalopram (CELEXA) 20 mg tabletTake 1 tablet by mouth once daily.Disp: 90 tabletRfl: 1 gabapentin (NEURONTIN) 300 mg capsuleTake 1 capsule by mouth three times daily for 180 days.Disp: 270 capsuleRfl: 1 carvedilol (COREG) 25 mg tabletTake 1 tablet by mouth twice daily.Disp: 180 tabletRfl: 3 simvastatin (ZOCOR) 40 mg tabletTake 1 tablet by mouth daily at bedtime.Disp: 90 tabletRfl: 1 buPROPion XL (WELLBUTRIN XL) 150 mg 24 hr tabletTake 2 tablets by mouth once daily.Disp: 180 tabletRfl: 1 cyclobenzaprine (FLEXERIL) 10 mg tabletTake 1 tablet by mouth twice daily as needed for Muscle Spasm.Disp: 180 tabletRfl: 1 magnesium oxide (MAG-OX) 400 mg (241.3 mg magnesium) tabletTake 1 tablet by mouth twice daily.Disp: 180 tabletRfl: 1 CBC [SQCBC] Order #: [id number] FUTURE COMP METABOLIC PANEL [SQCMP] Order #: [id number] FUTURE URIC ACID BLOOD [SQURIC] Order #: [id number] FUTURE LIPID PANEL, NONFASTING [SQLIPNF] Order #: [id number] FUTURE VITAMIN D 25 HYDROXY [SQVITD] Order #: [id number] FUTURE MAGNESIUM BLD [SQMG1] Order #: [id number] FUTURE Prescriptions as of 04/10/2018 Sig: CALCIUM CARBONATE 500 MG (1,2* Take 1 tablet by mouth twice * TRAZODONE 100 MG TABLET Take 1 tablet by mouth daily * PRAMIPEXOLE 0.25 MG TABLET Take 2 tablets by mouth daily* POTASSIUM CHLORIDE ER 10 MEQ * Take 1 tablet by mouth twice * PANTOPRAZOLE 40 MG TABLET,DEL* TAKE 1 TABLET BY MOUTH ON AN * ALBUTEROL SULFATE HFA 90 MCG/* inhale 2 puffs by mouth every* ALLOPURINOL 300 MG TABLET take 1 tablet by mouth once d* GABAPENTIN 300 MG CAPSULE Take 1 capsule by mouth three* CARVEDILOL 25 MG TABLET Take 1 tablet by mouth twice * SIMVASTATIN 40 MG TABLET Take 1 tablet by mouth daily * BUPROPION XL 150 MG TAB Take 2 tablets by mouth once * MAGNESIUM OXIDE 400 MG (241.3* Take 1 tablet by mouth twice * BIPAP New supplies: suitable mask * ALBUTEROL SULFATE CONCENTRATE* Inhale 0.5 mL as instructed o* OXYCODONE 7.5 MG-ACETAMINOPHE* As needed. Prescribed by * ALPRAZOLAM 0.5 MG TABLET Take 1 tablet by mouth at bed* FLUTICASONE 50 MCG/ACTUATION * instill 2 sprays into each no* ASPIRIN 81 MG TABLET,DELAYED * Take 1 tablet by mouth once d* BIPAP Change BIPAP to 16/10 cmH2O, * IBUPROFEN 200 MG CAPSULE Take 4 capsules by mouth twic* CYCLOSPORINE 0.05 % EYE DROPS* Use 1 Drop in both eyes twice* CITALOPRAM 20 MG TABLET Take 1 tablet by mouth once d* CYCLOBENZAPRINE 10 MG TABLET Take 1 tablet by mouth twice * Problem List As Of Date 04/10/2018 Noted Resolved COPD (chronic obstructive pulmonary disease) [J* Priority: B More... Hypertension [I10] Priority: D More... Hyperlipidemia [E78.5] Priority: E More... Obstructive sleep apnea [G47.33] Priority: B More... Anxiety disorder [F41.9] 06/13/2015 More... Depression [F32.9] 06/13/2015 Osteoporosis [M81.0] INVALID FOR* More... Arthritis [M19.90] Priority: F Congestive heart failure (CHF) [I50.9] 06/13/2015 Abdominal aortic ectasia (HCC) [I77.811] 04/07/2015 Carotid stenosis [I65.29] More... Lumbar stenosis [M48.061] INVALID FOR* Facet arthropathy, lumbar [M47.816] INVALID FOR* Coccydynia [M53.3] INVALID FOR*04/07/2015 Gout [M10.9] Vitamin D deficiency [E55.9] Severe aortic stenosis [I35.0] 06/10/2015 Priority: A More... Shortness of breath [R06.02] INVALID FOR*06/13/2015 Abdominal aortic aneurysm (HCC) [I71.4] Priority: C More... Tobacco use disorder [F17.200] INVALID FOR*06/13/2015 Arteriosclerotic heart disease (ASHD) [I25.10] INVALID FOR*08/03/2015 Secondary pulmonary hypertension (HCC) [LXQ1320]INVALID FOR* Pre-op testing [Z01.818] INVALID FOR*06/13/2015 More... Discharge planning issues [Z02.9] INVALID FOR*06/13/2015 More... Allergic reaction [T78.40XA] INVALID FOR*06/10/2015 Priority: B More... Hypotension [I95.9] INVALID FOR*06/07/2015 Priority: C More... Hypokalemia [E87.6] INVALID FOR*06/13/2015 ALBERTO (acute kidney injury) (HCC) [N17.9] INVALID FOR*06/10/2015 Priority: G More... Urinary tract infection without hematuria [N39.*INVALID FOR*06/10/2015 Priority: D More... SUMMARY INVALID FOR*05/03/2016 Priority: Mild More... Hyponatremia [E87.1] INVALID FOR*06/02/2015 More... Metabolic acidosis [E87.2] INVALID FOR*06/02/2015 Hypomagnesemia [E83.42] INVALID FOR*06/02/2015 Depression with anxiety [F41.8] INVALID FOR* Priority: G More... More... On mechanically assisted ventilation (HCC) [Z99*INVALID FOR*06/07/2015 Priority: B More... Acute postoperative pain [G89.18] INVALID FOR*06/10/2015 More... Atelectasis [J98.11] INVALID FOR*06/10/2015 More... More... BMI 45.0-49.9, adult (HCC) [Z68.42] INVALID FOR* Priority: I More... Smoking [F17.200] INVALID FOR*05/03/2016 Priority: J More... (aortic stenosis) [I35.0] INVALID FOR* Priority: A More... History of aortic valve replacement [Z95.2] INVALID FOR* Synovial cyst of lumbar facet joint [M71.38] INVALID FOR* Chronic left-sided low back pain with left-side*INVALID FOR* Encephalopathy [G93.40] INVALID FOR*08/08/2016 More... Benzodiazepine dependence (HCC) [F13.20] INVALID FOR*08/08/2016 More... Dysphagia [R13.10] INVALID FOR*08/08/2016 More... Non-STEMI (non-ST elevated myocardial infarctio*INVALID FOR*08/08/2016 More... Anemia [D64.9] INVALID FOR* More... Occult GI bleeding [R19.5] INVALID FOR* Posterior fossa hemorrhage (HCC) [I61.8] INVALID FOR* More... Tonsillar hypertrophy [J35.1] INVALID FOR* RLS (restless legs syndrome) [G25.81] INVALID FOR* Iron deficiency concern Re: RLS [E61.1] INVALID FOR* GERD (gastroesophageal reflux disease) [K21.9] INVALID FOR* Visit Notes: >> Sushma Martinez LPN [place] Apr 10, 2018 1:06 PM Status: Signed Influenza Vaccine Documentation: ? Patient is identified by name and date of : Yes ? Patient is older than 6 months of age: Yes ? Patient denies a severe allergy to any vaccine component or to a previous dose of influenza vaccine: Yes FOR EGG ALLERGY CONCERNS, REFER TO PROVIDER. ? Denies allergy to gelatin, formaldehyde, thimerosol :Yes ? Patient is afebrile and not moderately or severely ill: Yes ? Does the patient have a history of Guillain ?Trinchera Syndrome (a severe paralytic illness): No ? Denies bone marrow transplant prior 6 months or solid organ transplant prior 3 months: Yes ? Denies a history of fainting after a prior injection or medical procedure? Yes If patient has fainted in the past, the CDC recommends sitting or lying down for 15 minutes after the vaccination. ? VIS sheet provided: Yes ? See Immunization Form in [facility] for details of immunizations administered today. If patient reports dizziness, vision changes or ringing in the ears post vaccination ? please have patient sit or lie down for 15 minutes. Prescriptions ordered this encounter Disp Refills Start End CALCIUM CARBONATE 500 MG (1,250 MG)-* 180 * 3 04/10/2018 Route: ORAL Sig: Take 1 tablet by mouth twice daily. TRAZODONE 100 MG TABLET 90 t* 1 05/03/2018 Route: ORAL Sig: Take 1 tablet by mouth daily at bedtime. PRAMIPEXOLE 0.25 MG TABLET 180 * 1 04/10/2018 Route: ORAL Sig: Take 2 tablets by mouth daily at bedtime. POTASSIUM CHLORIDE ER 10 MEQ TABLET,* 180 * 1 04/10/2018 Route: ORAL Sig: Take 1 tablet by mouth twice daily. PANTOPRAZOLE 40 MG TABLET,DELAYED RE* 90 t* 1 04/10/2018 Sig: TAKE 1 TABLET BY MOUTH ON AN EMPTY STOMACH 30 MINUTES BEFORE BREAKFAST ALBUTEROL SULFATE HFA 90 MCG/ACTUATI* 3 In* 1 04/10/2018 Sig: inhale 2 puffs by mouth every 6 hours if needed for wheezing or shortness of breath ALLOPURINOL 300 MG TABLET 90 t* 1 04/10/2018 Sig: take 1 tablet by mouth once daily for GOUT CITALOPRAM 20 MG TABLET 90 t* 1 04/10/2018 Route: ORAL Sig: Take 1 tablet by mouth once daily. GABAPENTIN 300 MG CAPSULE 270 * 1 04/10/2018 10/07/2018 Route: ORAL Sig: Take 1 capsule by mouth three times daily for 180 days. CARVEDILOL 25 MG TABLET 180 * 3 04/10/2018 Route: ORAL Sig: Take 1 tablet by mouth twice daily. SIMVASTATIN 40 MG TABLET 90 t* 1 04/10/2018 Route: ORAL Sig: Take 1 tablet by mouth daily at bedtime. BUPROPION XL 150 MG TAB 180 * 1 04/10/2018 Route: ORAL Sig: Take 2 tablets by mouth once daily. CYCLOBENZAPRINE 10 MG TABLET 180 * 1 04/10/2018 Route: ORAL Sig: Take 1 tablet by mouth twice daily as needed for Muscle Spasm. MAGNESIUM OXIDE 400 MG (241.3 MG MAG* 180 * 1 04/10/2018 Route: ORAL Sig: Take 1 tablet by mouth twice daily. Medications Discontinued During This Encounter Woekrzohauwhvda-Cmtdzksnl-MH (BROMFE* 120 * 0 09/02/2017 04/10/2018 Route: ORAL Sig: Take 5 mL by mouth four times daily as needed. Patient not taking: Reported on 04/10/2018 Disc: Reason for discontinue is not on file. FERGON 240 mg (27 mg iron) tablet 30 t* 0 08/14/2017 04/10/2018 Sig: take 1 tablet by mouth once daily Disc: Reason for discontinue is not on file. citalopram (CELEXA) 40 mg tablet 90 t* 1 08/07/2017 04/10/2018 Sig: take 1 tablet by mouth once daily Disc: Reason for discontinue is not on file. 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 ([facility]) - ICD9: V85.42, ICD10: Z68.42; ICD9: 724.02, ICD10: M48.06; ICD9: 721.3, ICD10: M12.88; ([facility]) - ICD9: 496, ICD10: J44.9; ICD9: 424.1, ICD10: I35.0 Disc: Reason for discontinue is not on file. eiovxja-rxcpeaszb-qaqljze D3 (CALCIU* 180 * 3 11/07/2016 04/10/2018 Route: ORAL Sig: Take 1 tablet by mouth twice daily. Disc: Reason for discontinue is not on file. traZODone (DESYREL) 100 mg tablet 30 t* 2 05/03/2018 04/10/2018 Route: ORAL Sig: Take 1 tablet by mouth daily at bedtime. Disc: Reason for discontinue is not on file. pramipexole (MIRAPEX) 0.25 mg tablet 60 t* 1 04/03/2018 04/10/2018 Route: ORAL Sig: Take 2 tablets by mouth daily at bedtime. Disc: Reason for discontinue is not on file. potassium chloride (K-TAB) 10 mEq ta* 60 t* 11 11/15/2017 04/10/2018 Sig: take 1 tablet by mouth twice a day Disc: Reason for discontinue is not on file. pantoprazole DR (PROTONIX) 40 mg tab* 90 t* 0 09/30/2017 04/10/2018 Sig: TAKE 1 TABLET BY MOUTH ON AN EMPTY STOMACH 30 MINUTES BEFORE BREAKFAST Disc: Reason for discontinue is not on file. VENTOLIN HFA 90 mcg/actuation inhaler 1 In* 0 08/30/2017 04/10/2018 Sig: inhale 2 puffs by mouth every 6 hours if needed for wheezing or shortness of breath Disc: Reason for discontinue is not on file. allopurinol (ZYLOPRIM) 300 mg tablet 90 t* 0 08/14/2017 04/10/2018 Sig: take 1 tablet by mouth once daily for GOUT Disc: Reason for discontinue is not on file. gabapentin (NEURONTIN) 300 mg capsule 270 * 3 04/18/2017 04/10/2018 Sig: take 1 capsule by mouth three times a day Disc: Reason for discontinue is not on file. carvedilol (COREG) 25 mg tablet 180 * 3 03/27/2017 04/10/2018 Route: ORAL Sig: Take 1 tablet by mouth twice daily. Disc: Reason for discontinue is not on file. simvastatin (ZOCOR) 40 mg tablet 90 t* 1 02/06/2017 04/10/2018 Route: ORAL Sig: Take 1 tablet by mouth daily at bedtime. Disc: Reason for discontinue is not on file. buPROPion XL (WELLBUTRIN XL) 150 mg * 180 * 4 01/18/2017 04/10/2018 Route: ORAL Sig: Take 1 tablet by mouth twice daily. Disc: Reason for discontinue is not on file. cyclobenzaprine (FLEXERIL) 10 mg tab* 30 t* 2 05/21/2016 04/10/2018 Route: ORAL Sig: Take 1 tablet by mouth three times daily as needed for Muscle Spasm. Patient not taking: Reported on 04/10/2018 Disc: Reason for discontinue is not on file. magnesium oxide (MAG-OX) 400 mg tabl* 60 t* 11 10/09/2016 04/10/2018 Route: ORAL Sig: Take 1 tablet by mouth twice daily. Disc: Reason for discontinue is not on file. Ascorbic Acid chew 90 t* 2 01/16/2017 04/10/2018 Route: ORAL Sig: Take 1 tablet by mouth once daily. With the iron pill. Disc: Course of therapy completed CPAP 04/10/2018 Class: Historical Med Sig: daily at bedtime. Disc: Reason for discontinue is not on file. Disposition: Return in about 3 months (around 07/10/2018). Follow-up and Disposition History Recorded Encounter Status:Closed by SURYA JAIN MD on 04/10/18 CNOV Observed: 04/03/2018 Status: COMPLETED Source: [facility] 10:40 AM [facility] REPOSITORY Office Visit (NEMOWS) ARMANDODARIANA ([id number]) 1955 F Date Time Provider Department 04/03/18 10:40 AM ANGIE KAPOOR (VIKTOR) NEMSAULO During your visit today, we recorded the following information about you: Pulse Respiration Blood pressure Weight 60/minute 16/minute 155/70 120.7 kg Angie Kapoor APRN.CNP 04/03/2018 12:28 PM Signed [facility] Follow-up/Established patient visit Date of last visit: 01/09/17 Impression: Obstructive sleep apnea - High RLS now covered with medications. Insomnia is improved, in that she is getting to bed earlier. Still has some motivation to be up late with granddaughter. Trazodone is helpful ? Overall pt is progressing through other therapies and is now better comparatively. Might consider later changed, but give time for other benefits to accrue. ? ? Actions taken: Motivational Interviewing aspects taken Exploring symptoms Medications, allergies, hx Reviewed: yes OARRS Aspect: no ? Reviewed situation Ordered labs in keeping with RLS diagnosis - as it turned out she is iron deficient. ? Plan: Pt is to call in when meds come due; Continue present regiment ? Follow up 6 months. . ? Aj Zuniga MD ? Time in: 1013 Time out: 1033 For this visit, a total fyuy-ac-nbzh time with the patient comprised 20 minutes, with at least 50% of that time devoted to llpm-ro-ooap counseling and coordination of care, with especial emphasis placed on answering the patient?s and/or family?s ?questions in a form that they can understand and appreciate. HPI: Ms Roberts is a 62 yo female with PMH of AAA, , HLD, HTN, P.HTN, COPD, GERD, iron deficiency, RLS, obesity, depression, and anxiety. She currently takes celexa, trazodone, GBP, Wellbutrin, and oxycodone with insomnia still long standing for many years. Pain and anxiety are multifactorial to clinical picture of insomnia and she is currently followed by pain management. Sleep habits are of notable need for improvement, and she states that she does not have a bed but sleeps in a chair in the common room. Patient does become tearful in office as her stress and anxiety levels are higher then normal with some family factors contributing. SLEEP APNEA Sleep apnea type : J LUIS, Most Recent Apnea-Hypopnea Index (AHI): unknown Treatment : PAP therapy DME: [facility] PAP History: Uses Bilevel PAP for 7 nights per week. Current PAP settin/10 cm H2O. Difficulties with Bilevel PAP: None Reviewed objective PAP compliance data: no recent download available Mask type: nasal mask Mask issues: none Uses chin strap: No There is a perceived benefit by the patient RLS Current treatment : Medication(s) and timing : Mirapex 0.25 mg X 2 tablets HS Status : improved Time of day symptoms begin : At rest, at night Time of day when symptom-free : morning SLEEP-WAKE SCHEDULE Bedtime: 2-7 AM (baseine for many years) Latency: Takes trazodone 100 mg HS around 8-9 PM and will take a few hours to fall asleep Nocturnal wakings: varies based on pain and BRB Wake time: depends on bedtime 8-11 AM On weekends, she maintains the same sleep schedule. Average total sleep time (in a 24 hour period): 5-6 hours. She does take naps. Frequency: varies, Duration: varies. SLEEP FUNCTIONAL OUTCOME MEASURES: reviewed and uploaded. See end of note for questionnaire answers. PAST MEDICAL HISTORY Diagnosis Date - Abdominal aortic aneurysm ([facility]) - Anxiety disorder with panic attacks - Aortic stenosis - Arteriosclerotic heart disease (ASHD) 10/05/2009 - Arthritis - (aortic stenosis) 06/14/2015 History: severe aortic valve stenosis. There is mild (1+) aortic valve regurgitation Assessment: 06/06/15 S/P AVR, #25 CE Plan: ASA - Benzodiazepine dependence ([facility]) 2016 Per [facility] 04/03/16 usp charges - Carotid stenosis s/p right endarterectomy - Chronic left-sided low back pain with left-sided sciatica 03/13/2016 - Coccydynia 12/17/2012 - Congestive heart failure (CHF) ([facility]) 12/09/2009 non ischemic cardiomyopathy - COPD (chronic obstructive pulmonary disease) ([facility]) - DDD (degenerative disc disease) - Depression - Depression with anxiety 05/31/2015 History: Pre-op on celexa Assessment: ongoing agitation, inappropriate at times Plan: Continue pre-op regimen - Diverticulitis of colon - Edentulous - Encephalopathy 2016 Per [facility] 04/03/16 usp charges - Encephalopathy, unspecified 03/20/2016 multifactorial - Facet arthropathy, lumbar ([facility]) 12/17/2012 - GERD (gastroesophageal reflux disease) 10/23/2012 - Gout - Hyperlipidemia - Hyperlipidemia - Hypertension - Lumbar stenosis 12/17/2012 - Migraine headache - Non-STEMI (non-ST elevated myocardial infarction) ([facility]) 2016 Per [facility] 04/03/16 usp charges - Obstructive sleep apnea 2007 BiPAP 06/05 - [facility] - Osteoporosis 05/18/2011 Fosamax started - Overdose of opiate or related narcotic 03/20/2016 - Rhabdomyolysis 03/20/2016 - Secondary pulmonary hypertension 04/20/2015 - Syncope 09/14/2016 CT Brain 08/09/[address] angiogram negative at [facility]. - Synovial cyst of lumbar facet joint 03/13/2016 - Vitamin D deficiency 2013 PSH, SH: Reviewed SLEEP RELATED ROS GENERAL: See HPI HEENT: Negative for nasal congestion RESPIRATORY: Negative for wheezing and dyspnea on exertion CARDIOVASCULAR: Negative for chest pain : Negative for nocturia MUSCULOSKELETAL: Positive for generalized body pain and chronic back pain SKIN: Negative for mask irritation PSYCH: Positive for active stressors, depression and anxiety NEURO: Negative for morning headaches and memory problems All other systems reviewed and are negative. ALLERGIES Allergen Reactions - Duragesic [Fentanyl] Itching - Iodinated Contrast-* Itching - Seasonal Allergies Unknown CURRENT MEDICATIONS: [START ON 05/03/2018] traZODone (DESYREL) 100 mg tablet Take 1 tablet by mouth daily at bedtime. pramipexole (MIRAPEX) 0.25 mg tablet Take 2 tablets by mouth daily at bedtime. BIPAP New supplies: suitable mask per pt preference, chin strap, head gear, humidity, tubing, lifetime supplies. G47.33 Obstructive Sleep Apnea potassium chloride (K-TAB) 10 mEq tablet take 1 tablet by mouth twice a day pantoprazole DR (PROTONIX) 40 mg tablet TAKE 1 TABLET BY MOUTH ON AN EMPTY STOMACH 30 MINUTES BEFORE BREAKFAST Fyoyfjjfhahxkkm-Oldtrluvk-SI (BROMFED DM) 2-30-10 mg/5 mL syrup Take 5 mL by mouth four times daily as needed. albuterol (PROVENTIL) 5 mg/mL nebu Inhale 0.5 mL as instructed one time only for 1 dose. 1 DOSE NOW - BACK OFFICE. PLACE 0.5 ML PER DROPPER AND 2.5 ML OF NORMAL SALINE INTO RESERVOIR. VENTOLIN HFA 90 mcg/actuation inhaler inhale 2 puffs by mouth every 6 hours if needed for wheezing or shortness of breath allopurinol (ZYLOPRIM) 300 mg tablet take 1 tablet by mouth once daily for GOUT FERGON 240 mg (27 mg iron) tablet take 1 tablet by mouth once daily citalopram (CELEXA) 40 mg tablet take 1 tablet by mouth once daily gabapentin (NEURONTIN) 300 mg capsule take 1 capsule by mouth three times a day carvedilol (COREG) 25 mg tablet Take 1 tablet by mouth twice daily. oxyCODONE-acetaminophen 7.5-325 mg TbBO As needed. Prescribed by Dr. [place] ALPRAZolam (XANAX) 0.5 mg tablet Take 1 tablet by mouth at bedtime as needed. Prescribed by Dr. Pereira simvastatin (ZOCOR) 40 mg tablet Take 1 tablet by mouth daily at bedtime. buPROPion XL (WELLBUTRIN XL) 150 mg 24 hr tablet Take 1 tablet by mouth twice daily. Ascorbic Acid chew Take 1 tablet by mouth once daily. With the iron pill. fluticasone (FLONASE) 50 mcg/actuation nasal spray instill 2 sprays into each nostril once daily aspirin, enteric coated (ADULT LOW DOSE ASPIRIN) 81 mg EC tablet Take 1 tablet by mouth once daily. BIPAP Change BIPAP to 16/10 cmH2O, suitable mask, tubing, humidifier, filters. G478.33 jmwngpf-ppercfvif-uqfeeje D3 (CALCIUM 500+D) 500 mg(1,250mg) -200 unit per tablet Take 1 tablet by mouth twice daily. magnesium oxide (MAG-OX) 400 mg tablet Take 1 tablet by mouth twice daily. 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 ([facility]) - ICD9: V85.42, ICD10: Z68.42; ICD9: 724.02, ICD10: M48.06; ICD9: 721.3, ICD10: M12.88; ([facility]) - ICD9: 496, ICD10: J44.9; ICD9: 424.1, ICD10: I35.0 CPAP daily at bedtime. cyclobenzaprine (FLEXERIL) 10 mg tablet Take 1 tablet by mouth three times daily as needed for Muscle Spasm. Ibuprofen 200 mg cap Take 4 capsules by mouth twice daily as needed. cycloSPORINE (RESTASIS) 0.05 % ophthalmic emulsion Use 1 Drop in both eyes twice daily. Vital signs: BP 155/70 (BP Site: Left Arm, BP Position: Sitting, BP Cuff Size: Large Adult) Pulse 60 Resp 16 Wt 120.7 kg (266 lb) BMI 47.12 kg/m? PHYSICAL EXAM: General appearance: NAD, appropriate attire for season Mental status: Alert and oriented, good eye contact Speech: Logical and goal directed Constitutional: WNL Skin: Warm, dry, and intact Cardiac: Regular S1 and S2, no rubs, gallops, or murmurs Respiratory: Lungs clear to auscultation Musculoskeletal/ Extremities: No edema, cyanosis or clubbing, normal ROM Neuro: Gait stable, no tremors, hearing intact to conversation Impression: G47.33 Obstructive sleep apnea (primary encounter diagnosis) G25.81 RLS (restless legs syndrome) G47.21 Circadian rhythm sleep disorder, delayed sleep phase type F41.9 Anxiety J44.9 Chronic obstructive pulmonary disease, unspecified COPD type (HCC) Ms Roberts is a 62 yo female with PMH of AAA, , HLD, HTN, P.HTN, COPD, GERD, iron deficiency, RLS, obesity, depression, and anxiety. She currently takes celexa, trazodone, GBP, Wellbutrin, and oxycodone with insomnia still long standing for many years. Pain and anxiety are multifactorial to clinical picture of insomnia and she is currently followed by pain management. Sleep habits are of notable need for improvement, and she states that she does not have a bed but sleeps in a chair in the common room. Patient does become tearful in office as her stress and anxiety levels are higher then normal with some family factors contributing. Reviewed process C AND S and improvements that can be made to sleep patterns. Addressed anxiety and stress as large contributors to insomnia, and she was seeing a psychiatrist for some time in the past. Plan: Sleep apnea: - Continue Bilevel PAP at current settings - order sent for supplies - Remember to clean your mask and equipment regularly, as directed. - You should be eligible for new supplies approximately every 3-6 months, depending on your insurance coverage. Contact your [employer] ([employer]) company for new supplies as needed. Insomnia/ circadian rhythm disorder: - Discussed hyperarousal state and underlying causes of insomnia. Discussed treatment options including medications and CBT. - Continue Trazodone for medical treatment of insomnia- refill provided to start in April - Consult to psychiatrist Restless legs: - Nonmedical therapy for restless legs syndrome includes: cold/warm compresses, warm/hot baths or showers, gentle massage, mild leg stretching at nighttime, a bar of soap under the sheets or magnesium supplements (250- 500mg twice daily). Mentally alerting activities help too. Note that caffeine, alcohol, antidepressants and antihistamines can cause or worsen symptoms. - Restiffic and Relaxis pad - Continue Mirapex- refills provided Anxiety/depression: - Consult psychiatrist - See pt instructions Follow up in 3 month(s). Angie Kapoor APRN.VIKTOR Kapoor APRN.VIKTOR 04/03/2018 10:15 AM Signed [facility] Clinical Depression What you need to know and what you can do. Prior to your visit today, you completed a computerized survey. Your responses to some of the questions indicate you could be suffering from Clinical Depression. The typical symptoms of Clinical Depression are listed in the box below You checked off some or all of the symptoms, and indicated that they occur often enough to be bother-some. If this is accurate, then it is strongly recommended you get further professional help, especially if you feel hopeless or that life is not worth living (see (1) under Get Help). You may want to discuss this with a trusted friend or family member. Typical symptoms of Clinical Depression : ? Bad mood ? Trouble enjoying things you normally like to do ? Difficulty falling or staying asleep ? Feeling unusually bad about yourself (overly self-critical, worthless or guilty) ? Lack of usual energy level ? Lack of enthusiasm, motivation, or drive ? Trouble concentrating or making decisions (it can feel like memory loss) ? Loss of appetite (or sometimes over-eating) ? Being agitated, restless (or sluggish and slowed down) ? Feeling life just is not worth living or that you would be better off . GET HELP If you have symptoms of clinical depression, you can get help by doing one or more of the following: (1) Call the National Suicide Hotline ? or Call 018 (2) If you are already in treatment, make sure you contact and update your doctor or therapist. (3) Call the [facility] Department of Psychiatry AND Psychology at or (ask for Psychiatry AND Psychology appointments) (4) Call your primary care doctor to set up an appointment. (5) Call to set-up an appointment at one of the mental healthcare facilities in the [facility] (telephone numbers listed below). Mental Health Resources in the [facility] (in [place] unless otherwise noted): [facility] ? Harley Zhao. [place] [phone] [facility] - [address] [address] [facility] [phone] Laureano Barajas - [address] [address] [phone] [employer] [facility]. - [address] [facility]. [phone] [facility] - [address] [phone] [facility] ? [address] [phone] [facility] ? [address] [facility] - [phone] [facility] - [phone] [facility] - [address] [place] [phone] [facility] ? [address] [facility] [address] [phone] [facility] - [address] [facility] [phone] [facility] - [phone] [facility] ? [address] [place] [phone] Alma Reeves [facility] ? [address] [address] [phone] [facility] - [address] [facility], [place] [phone] [facility] [phone] [facility] ? [address] [facility] [phone] [facility] ? [address] [phone] [facility] Department of Psychiatry AND Psychology. Appointments: or (ask for Psychiatry AND Psychology appointments) If you are feeling suicidal, please call the National Suicide Hotline or Call 503 Referring Provider: AJ ZUNIGA [[id number]] Allergies As of Date: 04/03/2018 Noted Allergy Reaction DURAGESIC (FENTANYL) 01/18/2016 9 - Itching IODINATED CONTRAST- ORAL AND IV D*05/31/2015 9 - Itching SEASONAL ALLERGIES 08/27/2012 16 - Unknown Date Reviewed: 04/03/2018 Reviewed by: Angie (Patient Admitting Representative) Prasanna - Fully Assessed Reason for Visit: Established Patient [175] Primary Visit Diagnosis:Obstructive sleep apnea [G47.33] Other Visit Diagnoses:RLS (restless legs syndrome) [G25.81] Circadian rhythm sleep disorder, delayed sleep phase type [G47.21] Insomnia due to medical condition [G47.01] Anxiety [F41.9] Chronic obstructive pulmonary disease, unspecified COPD type (HCC) [J44.9] Order(s):[START ON 05/03/2018] traZODone (DESYREL) 100 mg tabletTake 1 tablet by mouth daily at bedtime.Disp: 30 tabletRfl: 2 pramipexole (MIRAPEX) 0.25 mg tabletTake 2 tablets by mouth daily at bedtime.Disp: 60 tabletRfl: 1 CONSULT TO PSYCHIATRY [[id number]] Order #: [id number]: 1 BIPAPNew supplies: suitable mask per pt preference, chin strap, head gear, humidity, tubing, lifetime supplies. G47.33 Obstructive Sleep ApneaDisp: 1 DeviceRfl: 0 Prescriptions as of 04/03/2018 Sig: TRAZODONE 100 MG TABLET Take 1 tablet by mouth daily * PRAMIPEXOLE 0.25 MG TABLET Take 2 tablets by mouth daily* BIPAP New supplies: suitable mask * POTASSIUM CHLORIDE ER 10 MEQ * take 1 tablet by mouth twice * PANTOPRAZOLE 40 MG TABLET,DEL* TAKE 1 TABLET BY MOUTH ON AN * BROMPHENIRAMINE-PSEUDOEPHEDRI* Take 5 mL by mouth four times* ALBUTEROL SULFATE CONCENTRATE* Inhale 0.5 mL as instructed o* VENTOLIN HFA 90 MCG/ACTUATION* inhale 2 puffs by mouth every* ALLOPURINOL 300 MG TABLET take 1 tablet by mouth once d* FERGON 240 MG (27 MG IRON) TA* take 1 tablet by mouth once d* CITALOPRAM 40 MG TABLET take 1 tablet by mouth once d* GABAPENTIN 300 MG CAPSULE take 1 capsule by mouth three* CARVEDILOL 25 MG TABLET Take 1 tablet by mouth twice * OXYCODONE 7.5 MG-ACETAMINOPHE* As needed. 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 (* CPAP daily at bedtime. CYCLOBENZAPRINE 10 MG TABLET Take 1 tablet by mouth three * IBUPROFEN 200 MG CAPSULE Take 4 capsules by mouth twic* CYCLOSPORINE 0.05 % EYE DROPS* Use 1 Drop in both eyes twice* Problem List As Of Date 04/03/2018 Noted Resolved COPD (chronic obstructive pulmonary disease) [J* Priority: B More... Hypertension [I10] Priority: D More... Hyperlipidemia [E78.5] Priority: E More... Obstructive sleep apnea [G47.33] Priority: B More... Anxiety disorder [F41.9] 06/13/2015 More... Depression [F32.9] 06/13/2015 Osteoporosis [M81.0] INVALID FOR* More... Arthritis [M19.90] Priority: F Congestive heart failure (CHF) [I50.9] 06/13/2015 Abdominal aortic ectasia (HCC) [I77.811] 04/07/2015 Carotid stenosis [I65.29] More... Lumbar stenosis [M48.061] INVALID FOR* Facet arthropathy, lumbar [M47.816] INVALID FOR* Coccydynia [M53.3] INVALID FOR*04/07/2015 Gout [M10.9] Vitamin D deficiency [E55.9] Severe aortic stenosis [I35.0] 06/10/2015 Priority: A More... Shortness of breath [R06.02] INVALID FOR*06/13/2015 Abdominal aortic aneurysm (HCC) [I71.4] Priority: C More... Tobacco use disorder [F17.200] INVALID FOR*06/13/2015 Arteriosclerotic heart disease (ASHD) [I25.10] INVALID FOR*08/03/2015 Secondary pulmonary hypertension (HCC) [KZP7689]INVALID FOR* Pre-op testing [Z01.818] INVALID FOR*06/13/2015 More... Discharge planning issues [Z02.9] INVALID FOR*06/13/2015 More... Allergic reaction [T78.40XA] INVALID FOR*06/10/2015 Priority: B More... Hypotension [I95.9] INVALID FOR*06/07/2015 Priority: C More... Hypokalemia [E87.6] INVALID FOR*06/13/2015 ALBERTO (acute kidney injury) (HCC) [N17.9] INVALID FOR*06/10/2015 Priority: G More... Urinary tract infection without hematuria [N39.*INVALID FOR*06/10/2015 Priority: D More... SUMMARY INVALID FOR*05/03/2016 Priority: Mild More... Hyponatremia [E87.1] INVALID FOR*06/02/2015 More... Metabolic acidosis [E87.2] INVALID FOR*06/02/2015 Hypomagnesemia [E83.42] INVALID FOR*06/02/2015 Depression with anxiety [F41.8] INVALID FOR* Priority: G More... More... On mechanically assisted ventilation (HCC) [Z99*INVALID FOR*06/07/2015 Priority: B More... Acute postoperative pain [G89.18] INVALID FOR*06/10/2015 More... Atelectasis [J98.11] INVALID FOR*06/10/2015 More... More... BMI 45.0-49.9, adult ([facility]) [Z68.42] INVALID FOR* Priority: I More... Smoking [F17.200] INVALID FOR*05/03/2016 Priority: J More... (aortic stenosis) [I35.0] INVALID FOR* Priority: A More... History of aortic valve replacement [Z95.2] INVALID FOR* Synovial cyst of lumbar facet joint [M71.38] INVALID FOR* Chronic left-sided low back pain with left-side*INVALID FOR* Encephalopathy [G93.40] INVALID FOR*08/08/2016 More... Benzodiazepine dependence (HCC) [F13.20] INVALID FOR*08/08/2016 More... Dysphagia [R13.10] INVALID FOR*08/08/2016 More... Non-STEMI (non-ST elevated myocardial infarctio*INVALID FOR*08/08/2016 More... Anemia [D64.9] INVALID FOR* More... Occult GI bleeding [R19.5] INVALID FOR* Posterior fossa hemorrhage (HCC) [I61.8] INVALID FOR* More... Tonsillar hypertrophy [J35.1] INVALID FOR* RLS (restless legs syndrome) [G25.81] INVALID FOR* Iron deficiency concern Re: RLS [E61.1] INVALID FOR* GERD (gastroesophageal reflux disease) [K21.9] INVALID FOR* Other instructions from your clinician: [facility] ATTENTION Clinical Depression What you need to know and what you can do. Prior to your visit today, you completed a computerized survey. Your responses to some of the questions indicate you could be suffering from Clinical Depression. The typical symptoms of Clinical Depression are listed in the box below You checked off some or all of the symptoms, and indicated that they occur often enough to be bother-some. If this is accurate, then it is strongly recommended you get further professional help, especially if you feel hopeless or that life is not worth living (see (1) under Get Help). You may want to discuss this with a trusted friend or family member. Typical symptoms of Clinical Depression : ? Bad mood ? Trouble enjoying things you normally like to do ? Difficulty falling or staying asleep ? Feeling unusually bad about yourself (overly self-critical, worthless or guilty) ? Lack of usual energy level ? Lack of enthusiasm, motivation, or drive ? Trouble concentrating or making decisions (it can feel like memory loss) ? Loss of appetite (or sometimes over-eating) ? Being agitated, restless (or sluggish and slowed down) ? Feeling life just is not worth living or that you would be better off . GET HELP If you have symptoms of clinical depression, you can get help by doing one or more of the following: (1) Call the National Suicide Hotline ? or Call 874 (2) If you are already in treatment, make sure you contact and update your doctor or therapist. (3) Call the [facility] Department of Psychiatry AND Psychology at or (ask for Psychiatry AND Psychology appointments) (4) Call your primary care doctor to set up an appointment. (5) Call to set-up an appointment at one of the mental healthcare facilities in the [facility] (telephone numbers listed below). Mental Health Resources in the [facility] (in [place] unless otherwise noted): [facility] ? [address]ley Zhao. [place] [phone] [facility] - [address] [facility] [phone] Laureano Barajas - [address] [phone] [facility] - [address] [phone] - [address] [phone] [facility] ? [address] [phone] [facility] ? [address] [facility] - [phone] [facility] - [phone] [facility] - [address] [place] [phone] [facility] ? [address] [facility] [address] [place] [phone] [facility] - [address] [facility] [phone] [facility] - [phone] [facility] ? [address] [place] [phone] [facility] ? [address] [place] [phone] [facility] - [address] [facility] [phone] [facility], [facility] [phone] [facility] ? [address] [facility] [phone] [facility] ? [address] [phone] [facility] Department of Psychiatry AND Psychology. Appointments: or (ask for Psychiatry AND Psychology appointments) If you are feeling suicidal, please call the National Suicide Hotline or Call 911 Prescriptions ordered this encounter Disp Refills Start End TRAZODONE 100 MG TABLET 30 t* 2 05/03/2018 Route: ORAL Sig: Take 1 tablet by mouth daily at bedtime. PRAMIPEXOLE 0.25 MG TABLET 60 t* 1 04/03/2018 Route: ORAL Sig: Take 2 tablets by mouth daily at bedtime. BIPAP 1 De* 0 04/03/2018 Class: Print RX Sig: New supplies: suitable mask per pt preference, chin strap, head gear, humidity, tubing, lifetime supplies. G47.33 Obstructive Sleep Apnea Medications Discontinued During This Encounter traZODone (DESYREL) 100 mg tablet 30 t* 2 02/11/2018 04/03/2018 Sig: take 1 tablet by mouth at bedtime Disc: Reason for discontinue is not on file. pramipexole (MIRAPEX) 0.25 mg tablet 60 t* 1 01/21/2018 04/03/2018 Sig: take 2 tablet by mouth at bedtime Disc: Reason for discontinue is not on file. Encounter Status:Closed by ANGIE KAPOOR on 04/03/18 PROGRESS Observed: 04/03/2018 Status: COMPLETED Source: [place] 9:34 AM [facility] REPOSITORY HNO ID: [id number] Author: Angie (Patient Admitting Representative) Prasanna Service: (none) Author Type: Nurse Practitioner Type: Progress Notes Filed: 04/03/2018 12:28 PM Note Text: [facility] Follow-up/Established patient visit Date of last visit: 01/09/17 Impression: Obstructive sleep apnea - High RLS now covered with medications. Insomnia is improved, in that she is getting to bed earlier. Still has some motivation to be up late with granddaughter. Trazodone is helpful ? Overall pt is progressing through other therapies and is now better comparatively. Might consider later changed, but give time for other benefits to accrue. ? ? Actions taken: Motivational Interviewing aspects taken Exploring symptoms Medications, allergies, hx Reviewed: yes OARRS Aspect: no ? Reviewed situation Ordered labs in keeping with RLS diagnosis - as it turned out she is iron deficient. ? Plan: Pt is to call in when meds come due; Continue present regiment ? Follow up 6 months. . ? Aj Zuniga MD ? Time in: 1013 Time out: 1033 For this visit, a total dpqa-sm-ckxr time with the patient comprised 20 minutes, with at least 50% of that time devoted to orng-fo-qkrn counseling and coordination of care, with especial emphasis placed on answering the patient?s and/or family?s ?questions in a form that they can understand and appreciate. HPI: Ms Roberts is a 62 yo female with PMH of AAA, , HLD, HTN, P.HTN, COPD, GERD, iron deficiency, RLS, obesity, depression, and anxiety. She currently takes celexa, trazodone, GBP, Wellbutrin, and oxycodone with insomnia still long standing for many years. Pain and anxiety are multifactorial to clinical picture of insomnia and she is currently followed by pain management. Sleep habits are of notable need for improvement, and she states that she does not have a bed but sleeps in a chair in the common room. Patient does become tearful in office as her stress and anxiety levels are higher then normal with some family factors contributing. SLEEP APNEA Sleep apnea type : J LUIS, Most Recent Apnea-Hypopnea Index (AHI): unknown Treatment : PAP therapy DME: [facility] PAP History: Uses Bilevel PAP for 7 nights per week. Current PAP settin/10 cm H2O. Difficulties with Bilevel PAP: None Reviewed objective PAP compliance data: no recent download available Mask type: nasal mask Mask issues: none Uses chin strap: No There is a perceived benefit by the patient RLS Current treatment : Medication(s) and timing : Mirapex 0.25 mg X 2 tablets HS Status : improved Time of day symptoms begin : At rest, at night Time of day when symptom-free : morning SLEEP-WAKE SCHEDULE Bedtime: 2-7 AM (baseine for many years) Latency: Takes trazodone 100 mg HS around 8-9 PM and will take a few hours to fall asleep Nocturnal wakings: varies based on pain and BRB Wake time: depends on bedtime 8-11 AM On weekends, she maintains the same sleep schedule. Average total sleep time (in a 24 hour period): 5-6 hours. She does take naps. Frequency: varies, Duration: varies. SLEEP FUNCTIONAL OUTCOME MEASURES: reviewed and uploaded. See end of note for questionnaire answers. PAST MEDICAL HISTORY Diagnosis Date - Abdominal aortic aneurysm (HCC) - Anxiety disorder with panic attacks - Aortic stenosis - Arteriosclerotic heart disease (ASHD) 10/05/2009 - Arthritis - (aortic stenosis) 06/14/2015 History: severe aortic valve stenosis. There is mild (1+) aortic valve regurgitation Assessment: 06/06/15 S/P AVR, #25 CE Plan: ASA - Benzodiazepine dependence ([facility]) 2016 Per [facility] 04/03/16 usp charges - Carotid stenosis s/p right endarterectomy - Chronic left-sided low back pain with left-sided sciatica 03/13/2016 - Coccydynia 12/17/2012 - Congestive heart failure (CHF) ([facility]) 12/09/2009 non ischemic cardiomyopathy - COPD (chronic obstructive pulmonary disease) ([facility]) - DDD (degenerative disc disease) - Depression - Depression with anxiety 05/31/2015 History: Pre-op on celexa Assessment: ongoing agitation, inappropriate at times Plan: Continue pre-op regimen - Diverticulitis of colon - Edentulous - Encephalopathy 2016 Per [facility] 04/03/16 usp charges - Encephalopathy, unspecified 03/20/2016 multifactorial - Facet arthropathy, lumbar ([facility]) 12/17/2012 - GERD (gastroesophageal reflux disease) 10/23/2012 - Gout - Hyperlipidemia - Hyperlipidemia - Hypertension - Lumbar stenosis 12/17/2012 - Migraine headache - Non-STEMI (non-ST elevated myocardial infarction) ([facility]) 2016 Per [facility] 04/03/16 usp charges - Obstructive sleep apnea 2007 BiPAP 06/05 - [facility] - Osteoporosis 05/18/2011 Fosamax started - Overdose of opiate or related narcotic 03/20/2016 - Rhabdomyolysis 03/20/2016 - Secondary pulmonary hypertension 04/20/2015 - Syncope 09/14/2016 CT Brain 08/09/[address] angiogram negative at [facility]. - Synovial cyst of lumbar facet joint 03/13/2016 - Vitamin D deficiency 2013 PSH, SH: Reviewed SLEEP RELATED ROS GENERAL: See HPI HEENT: Negative for nasal congestion RESPIRATORY: Negative for wheezing and dyspnea on exertion CARDIOVASCULAR: Negative for chest pain : Negative for nocturia MUSCULOSKELETAL: Positive for generalized body pain and chronic back pain SKIN: Negative for mask irritation PSYCH: Positive for active stressors, depression and anxiety NEURO: Negative for morning headaches and memory problems All other systems reviewed and are negative. ALLERGIES Allergen Reactions - Duragesic [Fentanyl] Itching - Iodinated Contrast-* Itching - Seasonal Allergies Unknown CURRENT MEDICATIONS: [START ON 05/03/2018] traZODone (DESYREL) 100 mg tablet Take 1 tablet by mouth daily at bedtime. pramipexole (MIRAPEX) 0.25 mg tablet Take 2 tablets by mouth daily at bedtime. BIPAP New supplies: suitable mask per pt preference, chin strap, head gear, humidity, tubing, lifetime supplies. G47.33 Obstructive Sleep Apnea potassium chloride (K-TAB) 10 mEq tablet take 1 tablet by mouth twice a day pantoprazole DR (PROTONIX) 40 mg tablet TAKE 1 TABLET BY MOUTH ON AN EMPTY STOMACH 30 MINUTES BEFORE BREAKFAST Rblrrsptcbclikp-Reclvqgxb-FR (BROMFED DM) 2-30-10 mg/5 mL syrup Take 5 mL by mouth four times daily as needed. albuterol (PROVENTIL) 5 mg/mL nebu Inhale 0.5 mL as instructed one time only for 1 dose. 1 DOSE NOW - BACK OFFICE. PLACE 0.5 ML PER DROPPER AND 2.5 ML OF NORMAL SALINE INTO RESERVOIR. VENTOLIN HFA 90 mcg/actuation inhaler inhale 2 puffs by mouth every 6 hours if needed for wheezing or shortness of breath allopurinol (ZYLOPRIM) 300 mg tablet take 1 tablet by mouth once daily for GOUT FERGON 240 mg (27 mg iron) tablet take 1 tablet by mouth once daily citalopram (CELEXA) 40 mg tablet take 1 tablet by mouth once daily gabapentin (NEURONTIN) 300 mg capsule take 1 capsule by mouth three times a day carvedilol (COREG) 25 mg tablet Take 1 tablet by mouth twice daily. oxyCODONE-acetaminophen 7.5-325 mg TbBO As needed. Prescribed by Dr. [place] ALPRAZolam (XANAX) 0.5 mg tablet Take 1 tablet by mouth at bedtime as needed. Prescribed by Dr. Pereira simvastatin (ZOCOR) 40 mg tablet Take 1 tablet by mouth daily at bedtime. buPROPion XL (WELLBUTRIN XL) 150 mg 24 hr tablet Take 1 tablet by mouth twice daily. Ascorbic Acid chew Take 1 tablet by mouth once daily. With the iron pill. fluticasone (FLONASE) 50 mcg/actuation nasal spray instill 2 sprays into each nostril once daily aspirin, enteric coated (ADULT LOW DOSE ASPIRIN) 81 mg EC tablet Take 1 tablet by mouth once daily. BIPAP Change BIPAP to 16/10 cmH2O, suitable mask, tubing, humidifier, filters. G478.33 tyvyyut-ywofesvrw-svvvzcs D3 (CALCIUM 500+D) 500 mg(1,250mg) -200 unit per tablet Take 1 tablet by mouth twice daily. magnesium oxide (MAG-OX) 400 mg tablet Take 1 tablet by mouth twice daily. 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 ([facility]) - ICD9: V85.42, ICD10: Z68.42; ICD9: 724.02, ICD10: M48.06; ICD9: 721.3, ICD10: M12.88; ([facility]) - ICD9: 496, ICD10: J44.9; ICD9: 424.1, ICD10: I35.0 CPAP daily at bedtime. cyclobenzaprine (FLEXERIL) 10 mg tablet Take 1 tablet by mouth three times daily as needed for Muscle Spasm. Ibuprofen 200 mg cap Take 4 capsules by mouth twice daily as needed. cycloSPORINE (RESTASIS) 0.05 % ophthalmic emulsion Use 1 Drop in both eyes twice daily. Vital signs: BP 155/70 (BP Site: Left Arm, BP Position: Sitting, BP Cuff Size: Large Adult) Pulse 60 Resp 16 Wt 120.7 kg (266 lb) BMI 47.12 kg/m? 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 She currently takes celexa, trazodone, GBP, Wellbutrin, and oxycodone with insomnia still long standing for many years. Pain and anxiety are multifactorial to clinical picture of insomnia and she is currently followed by pain management. Sleep habits are of notable need for improvement, and she states that she does not have a bed but sleeps in a chair in the common room. Patient does become tearful in office as her stress and anxiety levels are higher then normal with some family factors contributing. Reviewed process C AND S and improvements that can be made to sleep patterns. Addressed anxiety and stress as large contributors to insomnia, and she was seeing a psychiatrist for some time in the past. Plan: Sleep apnea: - Continue Bilevel PAP at current settings - order sent for supplies - Remember to clean your mask and equipment regularly, as directed. - You should be eligible for new supplies approximately every 3-6 months, depending on your insurance coverage. Contact your [employer] company for new supplies as needed. Insomnia/ circadian rhythm disorder: - Discussed hyperarousal state and underlying causes of insomnia. Discussed treatment options including medications and CBT. - Continue Trazodone for medical treatment of insomnia- refill provided to start in April - Consult to psychiatrist Restless legs: - Nonmedical therapy for restless legs syndrome includes: cold/warm compresses, warm/hot baths or showers, gentle massage, mild leg stretching at nighttime, a bar of soap under the sheets or magnesium supplements (250-500mg twice daily). Mentally alerting activities help too. Note that caffeine, alcohol, antidepressants and antihistamines can cause or worsen symptoms. - Restiffic and Relaxis pad - Continue Mirapex- refills provided Anxiety/depression: - Consult psychiatrist - See pt instructions Follow up in 3 month(s). Angie Kapoor APRN.STORE PERSON CBC WITH AUTO DIFF Collected: 01/21/2018 Status: F Source: [place] 2:[address] [facility] REPOSITORY TYPE CODE TESTS RESULT OUT OF RANGE REFERENCE UNITS LAB WBC 4.0-11.0 K/uL WHITE BLOOD Normal COUNT 6.2 LAB RBC 4.20-5.50 M/uL Low RED BLOOD COUNT 3.97 LAB HGB 12.0-16.0 g/dL HEMOGLOBIN 13.4 LAB HCT 37.0-47.0 % HEMATOCRIT Normal 39.4 LAB MCV 80-97 fL High MEAN CELL VOLUME 99.3 LAB MCH 26.0-32.0 pg High MEAN CORPUSCULAR HGB 33.8 LAB MCHC 31.0-36.0 g/dL MEAN Normal CORPUSCULAR HGB 34.1 CONC LAB RDW 11.0-15.5 % RED CELL Normal DISTRI WIDTH 14.5 LAB PLT 140-450 K/uL Low PLATELET COUNT 122 LAB MPV 6.6-10.5 fl MEAN Normal PLATELET VOLUME 10.0 LAB GR% 42-80 % GRAN % Normal 68.4 LAB LY% 16-48 % LYMPH % Normal 18.3 LAB MO% 3-9 % MONO % Normal 9.0 LAB EO% 0-8 % EOS % Normal 3.7 LAB BASO% 0-2 % BAS0 % Normal 0.60 LAB GR# 2.2-9.1 K/uL GRAN # Normal 4.2 LAB LY# 1.0-4.0 K/uL LYMPH # Normal 1.1 LAB MO# 0.1-1.7 K/uL MONO # Normal 0.6 LAB EO# 0.0-1.80 K/uL EOS # Normal 0.2 LAB BA# 0-0.1 K/ul BASO # Normal 0.0 Performed By: #### CBC #### [address] [address] COMPREHENSIVE METABOLIC Collected: 01/21/2018 Status: F Source: [place] 2:[address] [facility] REPOSITORY TYPE CODE TESTS RESULT OUT OF REFERENCE UNITS RANGE LAB GLU 70-100 mg/dL GLUCOSE Normal 84 LAB BUN 7-18 mg/dL BUN High 20.0 LAB CRE 0.4-1.2 mg/dL CREATININE Normal 1.20 LAB NA 136-147 MMOL/L SODIUM Normal 138 LAB K 3.6-5.2 MMOL/L POTASSIUM Normal 4.0 LAB CL 98-107 MMOL/L CHLORIDE Normal 103 LAB CO2 21-32 MMOL/L CARBON Normal DIOXIDE 29.0 LAB GAP 11-23 Low ANION GAP 10.0 LAB CHRISTIANA 8.5-10.1 mg/dL CALCIUM Normal 8.7 LAB TP 6.0-8.3 g/dL TOTAL Normal PROTEIN 6.7 LAB ALB 3.0-5.0 g/dL ALBUMIN Normal 3.1 LAB GLOB 2.5-4.6 g/dl GLOBULIN Normal 3.6 LAB A/G 1.1-1.8 Low ALB/GLOB RATIO 0.9 LAB TBIL 0-1.0 mg/dL Normal BILIRUBIN,TOTAL 0.3 LAB SGOT 9-34 U/L SGOT/AST Normal 18 LAB SGPT 12-78 U/L SGPT/ALT Normal 20 LAB ALK 45-117 U/L ALK Normal PHOSPHATASE 107 LAB GFR mL/min GFR 51.0 LAB GFRAA mL/min GFR AM 61.7 Result Comment: THE NORMAL LEVEL OF GFR VARIES ACCORDING TO AGE, SEX, AND BODY SIZE. A GFR LEVEL OF LESS THAN 60 ML/MIN REPRESENTS LOSS OF THE ADULT LEVEL OF NORMAL KIDNEY FUNCTION. Performed By: #### MG IVÁN, LEILA #### [facility] [address] [place] [address] MAGNESIUM Collected: 01/21/2018 Status: F Source: [place] 2:[address] [facility] REPOSITORY TYPE CODE TESTS RESULT OUT OF RANGE REFERENCE UNITS LAB MG 1.8-2.4 mg/dL Normal MAGNESIUM 2.0 Performed By: #### IVÁN MG, BMP #### [address] [address] BASIC METABOLIC PANEL Collected: 01/21/2018 Status: F Source: [place] 2:[address] [facility] REPOSITORY TYPE CODE TESTS RESULT OUT OF RANGE REFERENCE UNITS LAB GLU 70-100 mg/dL GLUCOSE Normal 84 LAB BUN 7-18 mg/dL High BUN 20.0 LAB CRE 0.4-1.2 mg/dL Normal CREATININE 1.20 LAB NA 136-147 MMOL/L SODIUM Normal 138 LAB K 3.6-5.2 MMOL/L Normal POTASSIUM 4.0 LAB CL 98-107 MMOL/L CHLORIDE Normal 103 LAB CO2 21-32 MMOL/L CARBON Normal DIOXIDE 29.0 LAB GAP 11-23 Low ANION GAP 10.0 LAB CHRISTIANA 8.5-10.1 mg/dL CALCIUM Normal 8.7 LAB GFR mL/min GFR 51.0 LAB GFRAA mL/min GFR AM 61.7 Result Comment: THE NORMAL LEVEL OF GFR VARIES ACCORDING TO AGE, SEX, AND BODY SIZE. A GFR LEVEL OF LESS THAN 60 ML/MIN REPRESENTS LOSS OF THE ADULT LEVEL OF NORMAL KIDNEY FUNCTION. Performed By: #### IVÁN, MG, BMP #### [facility] [address] [place] [address] ABD AORTA Observed: 12/28/2017 Status: F Source: [place] 9:[facility] [place] DARIANA ROBERTS Female [id number] Ordering physician: Jojo Burk LOC:ULTR [id number] Attending physician: Jojo Burk 1955 62 DOS: 12/28/17 Acc#: [id number] Exam/Proc: ABD AORTA Dept: ULTRASOUND INDICATION: AAA TECHNIQUE: Real-time grayscale, color and spectral doppler ultrasound of the adominal aorta and iliac arteries was performed. COMPARISON: None available FINDINGS: The aorta measures 2.0 x 2.0 cm, 2.3 x 2.6 cm, and 4.1 x 4.1 cm in its proximal mid and distal aspects, respectively. Abdominal aortic aneurysm is identified. The aorta demonstrated normal color and spectral doppler flow. The right iliac artery is not visualized. The left iliac artery measures 1.0 x .1 cm. IMPRESSION: Fusiform abdominal aortic infrarenal aneurysm measures up to 4.1 x 4.1 cm. Thee are no direct comparisons at this level available. Interval surveillance recommended. Society For Vascular [employer] Practice Guidelines For Imaging Surveillance Of Abominal Aortic Aneurysms: * Size between 2.6 and 2.9 cm - Every 10 years * Size between 3.0 and 3.9 cm - Every 3 years * Size between 4.0 and 4.9 cm - Every 12 months * Size between 5.0 and 5.4 cm - Every 6 months * Size of 5.5 cm or more - Surgical consult is advised Please Note: Size between 5.0 and 5.4 cm may benefit from repair in young healty patients, particularly female. Surgical consult may be appropriate. (Zion Brown MD, PhD, et al, The Society for Vascular Surgery PracticeGuidelines on the care of patients with abdominal aortic aneurysm. J Vasc Surg. 2018, Issue 1,Vol 67, pp2-77.e2.) Signed by Jose Munguia D.O. REPORT SIGNATURE ON FILE Electronically Signed Date/Time: 12/28/1749 Dictated Date/time: 12/28/17948 CC: EXTREMITY VEINS RIGHT Observed: 12/17/2017 Status: F Source: [place] 5:[address] [facility] REPOSITORY DARIANA ROBERTS Female [id number] Ordering physician: Jojo Burk LOC:ULTR [id number] Attending physician: Jojo Burk 1955 62 DOS: 12/17/17 Acc#: [id number] Exam/Proc: EXTREMITY VEINS RIGHT Dept: ULTRASOUND INDICATION: RLE pain. TECHNIQUE: Real-time grayscale, color, and spectral doppler ultrasound imagingof the right lower extremity veins was performed. COMPARISON: None available. FINDINGS: The right common femoral, superficial femoral, and popliteal veins demonstratednormal compressibility, normal phasic venous flow, and normal response to augmentation. There is no evidence for echogenic thrombi. The visualized deep calf veins are patent. The contralateral common femoral vein is free of thrombosis. IMPRESSION: No evidence for DVT within the right lower extremity. Signed by Louis Tan D.O. REPORT SIGNATURE ON FILE Electronically Signed Date/Time: 12/17/171705 Dictated Date/time: 12/17/171705 CC: CBC WITH AUTO DIFF Collected: 12/12/2017 Status: F Source: [place] 3:[address] [facility] TYPE CODE TESTS RESULT OUT OF RANGE REFERENCE UNITS LAB WBC 4.0-11.0 K/uL WHITE BLOOD Normal COUNT 5.4 LAB RBC 4.20-5.50 M/uL Low RED BLOOD COUNT 3.73 LAB HGB 12.0-16.0 g/dL HEMOGLOBIN Normal 12.4 LAB HCT 37.0-47.0 % Low HEMATOCRIT 36.9 LAB MCV 80-97 fL High MEAN CELL VOLUME 99.0 LAB MCH 26.0-32.0 pg High MEAN CORPUSCULAR HGB 33.4 LAB MCHC 31.0-36.0 g/dL MEAN Normal CORPUSCULAR HGB 33.7 CONC LAB RDW 11.0-15.5 % RED CELL Normal DISTRI WIDTH 15.4 LAB PLT 140-450 K/uL PLATELET Normal COUNT 172 LAB MPV 6.6-10.5 fl MEAN Normal PLATELET VOLUME 9.6 LAB GR% 42-80 % GRAN % Normal 62.0 LAB LY% 16-48 % LYMPH % Normal 22.8 LAB MO% 3-9 % High MONO % 10.5 LAB EO% 0-8 % EOS % Normal 4.0 LAB BASO% 0-2 % BAS0 % Normal 0.70 LAB GR# 2.2-9.1 K/uL GRAN # Normal 3.3 LAB LY# 1.0-4.0 K/uL LYMPH # Normal 1.2 LAB MO# 0.1-1.7 K/uL MONO # Normal 0.6 LAB EO# 0.0-1.80 K/uL EOS # Normal 0.2 LAB BA# 0-0.1 K/ul BASO # Normal 0.0 Performed By: #### CBC #### [address] [address] COMPREHENSIVE METABOLIC Collected: 12/12/2017 Status: F Source: [place] PANEL 3:[address] [facility] REPOSITORY TYPE CODE TESTS RESULT OUT OF REFERENCE UNITS RANGE LAB GLU 70-100 mg/dL GLUCOSE Normal 82 LAB BUN 7-18 mg/dL BUN Normal 13.0 LAB CRE 0.4-1.2 mg/dL CREATININE Normal 1.20 LAB NA 136-147 MMOL/L SODIUM Normal 138 LAB K 3.6-5.2 MMOL/L POTASSIUM Normal 4.0 LAB CL 98-107 MMOL/L CHLORIDE Normal 105 LAB CO2 21-32 MMOL/L CARBON Normal DIOXIDE 27.0 LAB GAP 11-23 Low ANION GAP 9.4 LAB CHRISTIANA 8.5-10.1 mg/dL Low CALCIUM 8.1 LAB TP 6.0-8.3 g/dL TOTAL Normal PROTEIN 6.4 LAB ALB 3.0-5.0 g/dL Low ALBUMIN 2.8 LAB GLOB 2.5-4.6 g/dl GLOBULIN Normal 3.6 LAB A/G 1.1-1.8 Low ALB/GLOB RATIO 0.8 LAB TBIL 0-1.0 mg/dL Normal BILIRUBIN,TOTAL 0.4 LAB SGOT 9-34 U/L SGOT/AST Normal 20 LAB SGPT 12-78 U/L SGPT/ALT Normal 18 LAB ALK 45-117 U/L ALK Normal PHOSPHATASE 114 LAB GFR mL/min GFR 50.0 LAB GFRAA mL/min GFR AM 60.5 Result Comment: THE NORMAL LEVEL OF GFR VARIES ACCORDING TO AGE, SEX, AND BODY SIZE. A GFR LEVEL OF LESS THAN 60 ML/MIN REPRESENTS LOSS OF THE ADULT LEVEL OF NORMAL KIDNEY FUNCTION. Performed By: #### MN, LIPID, MG, TSH #### [place] [address] [address] LIPID PROFILE Collected: 12/12/2017 Status: F Source: [place] ([place]) 3:[address] [facility] REPOSITORY TYPE CODE TESTS RESULT OUT OF REFERENCE UNITS RANGE LAB CHOL 0-200 mg/dL CHOLESTEROL Normal 198 LAB TRIG 0-150 mg/dL TRIGLYCERIDES High 281 LAB VLDL 5-40 mg/dl VLDL CALCULATION 56 LAB HDL 40-60 mg/dL HDL 31 LAB CHOL/HDL 3.7-5.6 mg/dl CHOL/HDL RATIO 6.4 LAB LDLC 0-130 mg/dL LDL (CALCULATED) 111 Performed By: #### MN, LIPID, MG, TSH #### [address] [address] MAGNESIUM Collected: 12/12/2017 Status: F Source: [place] 3:[address] [facility] REPOSITORY TYPE CODE TESTS RESULT OUT OF RANGE REFERENCE UNITS LAB MG 1.8-2.4 mg/dL Normal MAGNESIUM 1.9 Performed By: #### MN, LIPID, MG, TSH #### [address] [address] THYROID STIM HORMONE Collected: 12/12/2017 Status: F Source: [place] 3:[address] [facility] REPOSITORY TYPE CODE TESTS RESULT OUT OF RANGE REFERENCE UNITS LAB TSH 0.360-3.74 uIU/mL Normal THYROID STIM 1.950 HORMONE Performed By: #### MN, LIPID, MG, TSH #### [facility] [address] [place] [address] RIBS-LEFT W/PA CHEST Observed: 12/02/2017 Status: F Source: [place] 1:[address] [facility] REPOSITORY DARIANA ROBERTS Female [id number] Ordering physician: Jojo Burk LOC:RAD [id number] Attending physician: Jojo Burk 1955 62 DOS: 11/29/17 Acc#: [id number] Exam/Proc: RIBS-LEFT W/PA CHEST Dept: RADIOLOGY INDICATION: Shortness of breath, cough and congestion. Pain in lateral left side. Additional History: COPD. Hypertension. Trauma on 11/22/17 - left sixth rib fractre. Recent pneumonia. TECHNIQUE: Frontal chest and Three view(s), four images of the left ribs. COMPARISON: 11/22/17 XR. FINDINGS: The cardiomediastinal silhouette is normal in size. There is some tortuosity ofthoracic aorta and sternotomy. There is no consolidation or atelectasis in either lung. There are no pleural effusions. There is no pneumothorax. There are old healed fractures of the left sixth through ninth ribs. An acute nondisplaced fracture of the lateral aspect the left fifth rib is not excluded present prior vertebroplasty.. IMPRESSION: Left-sided rib fractures most which appear old. Nondisplaced lateral fracture o the left fifth rib could be either acute or chronic. Signed by Chriss Kaur M.D. REPORT SIGNATURE ON FILE Electronically Signed Date/Time: 12/02/17 134 Dictated Date/time: 12/02/17 134 CC: RIBS-LEFT W/PA CHEST Observed: 11/22/2017 Status: F Source: [place] 7:[address] [facility] REPOSITORY DARIANA ROBERTS Female [id number] Ordering physician: Aurea Keys LOC:ER [id number] Attending physician: 1955 62 DOS: 11/22/17 Acc#: [id number] Exam/Proc: RIBS-LEFT W/PA CHEST Dept: RADIOLOGY INDICATION: Dyspnea and left axillary chest pain. Fall event on Saturday. Additional History: Open Heart Aortic Valve. TECHNIQUE: Frontal chest and two view(s) (four images) of the left ribs. COMPARISON: Chest: 10/14/17 XR, Left Ribs: None Available. FINDINGS: The cardiomediastinal silhouette is normal in size. There are sternal wire sutres but there is no vascular congestion or edema. There is no consolidation or atelectasis in either lung. There are no pleural effusions. There is no pneumothorax. There is a subtle nondisplaced fracture in the lateral sixth rib seen in one oblique view of the left rib cage. Prior vertebroplasty is noted in T12 on the right images.. IMPRESSION: No acute cardiopulmonary disease. There is a nondisplaced rib fracture in the ateral sixth left rib.. Signed by Louis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 questionable history of coronary artery disese. Continue home medications. 10. DVT prophylaxis. See orders for further details. Expected duration of hositalization is 3 days. Expected disposition is home after [place] [id number]. LAUREN/TROY @ 01:32 @ 02:40 # [id number] Rachel Bo M.D. <Electronically signed by Dr. Rachel Bo> Electronically Signed Date/Time: 10/15/17811 Electronically Signed Date/Time: 10/15/17 08 CHEST-2 VIEW Observed: 10/14/2017 Status: F Source: [place] 10:[address] [facility] REPOSITORY DARIANA ROBERTS Female [id number] Ordering physician: Crista Mccann LOC:ER [id number] Attending physician: 1955 62 DOS: 10/14/17 Acc#: [id number] Exam/Proc: CHEST-2 VIEW Dept: RADIOLOGY INDICATION: Cough with shortness of breath. COPD. TECHNIQUE: Frontal and lateral chest. COMPARISON: None Available. FINDINGS: Patient is status post median sternotomy with aortic valve replacement. Heart s enlarged. Mild edema noted. There are no pleural effusions. There is no pneumothorax. No acute osseous process. IMPRESSION: Cardiomegaly with mild edema. Signed by Sheila Arreola II, MD REPORT SIGNATURE ON FILE Electronically Signed Date/Time: 10/14/172246 Dictated Date/time: 10/14/172246 CC: BASIC METABOLIC PANEL Collected: 10/14/2017 Status: F Source: [place] 8:[address] [facility] REPOSITORY TYPE CODE TESTS RESULT OUT OF RANGE REFERENCE UNITS LAB GLU 70-100 mg/dL High GLUCOSE 113 LAB BUN 7-18 mg/dL BUN Normal 17.0 LAB CRE 0.4-1.2 mg/dL Normal CREATININE 0.90 LAB NA 136-147 MMOL/L SODIUM Normal 142 LAB K 3.6-5.2 MMOL/L Normal POTASSIUM 3.8 LAB CL 98-107 MMOL/L CHLORIDE Normal 106 LAB CO2 21-32 MMOL/L CARBON Normal DIOXIDE 26.0 LAB GAP 11-23 ANION Normal GAP 14.3 LAB CHRISTIANA 8.5-10.1 mg/dL Low CALCIUM 8.4 LAB GFR mL/min GFR > 60.0 LAB GFRAA mL/min GFR > 60.0 Result Comment: THE NORMAL LEVEL OF GFR VARIES ACCORDING TO AGE, SEX, AND BODY SIZE. A GFR LEVEL OF LESS THAN 60 ML/MIN REPRESENTS LOSS OF THE ADULT LEVEL OF NORMAL KIDNEY FUNCTION. Performed By: #### BMP, TRO #### [facility] [address] [place] [address] TROPONIN Collected: 10/14/2017 Status: F Source: [place] 8:50 [facility] REPOSITORY TYPE CODE TESTS RESULT OUT OF RANGE REFERENCE UNITS LAB TRO 0-0.1 ng/mL Normal TROPONIN 0.020 Result Comment: Troponin Reference Range 0.0 - 0.045 ng/ml Negative 0.046 - 0.1 ng/ml Intermediate Risk 0.11 - 0.59 ng/ml High Risk Greater than or equal to 0.6 ng/ml - Indicative of Myocardial Damage Performed By: #### BMP, TRO #### [address] [address] CBC WITH AUTO DIFF Collected: 10/14/2017 Status: F Source: [place] 8:[address] [facility] REPOSITORY TYPE CODE TESTS RESULT OUT OF RANGE REFERENCE UNITS LAB WBC 4.0-11.0 K/uL WHITE BLOOD Normal COUNT 6.9 LAB RBC 4.20-5.50 M/uL Low RED BLOOD COUNT 3.72 LAB HGB 12.0-16.0 g/dL HEMOGLOBIN Normal 12.0 LAB HCT 37.0-47.0 % Low HEMATOCRIT 36.3 LAB MCV 80-97 fL High MEAN CELL VOLUME 97.8 LAB MCH 26.0-32.0 pg High MEAN CORPUSCULAR HGB 32.2 LAB MCHC 31.0-36.0 g/dL MEAN Normal CORPUSCULAR HGB 32.9 CONC LAB RDW 11.0-15.5 % High RED CELL DISTRI WIDTH 15.7 LAB PLT 140-450 K/uL PLATELET Normal COUNT 147 LAB MPV 6.6-10.5 fl High MEAN PLATELET VOLUME 11.6 LAB GR% 42-80 % GRAN % Normal 69.8 LAB LY% 16-48 % LYMPH % Normal 18.1 LAB MO% 3-9 % High MONO % 10.4 LAB EO% 0-8 % EOS % Normal 1.1 LAB BASO% 0-2 % BAS0 % Normal 0.60 LAB GR# 2.2-9.1 K/uL GRAN # Normal 4.8 LAB LY# 1.0-4.0 K/uL LYMPH # Normal 1.2 LAB MO# 0.1-1.7 K/uL MONO # Normal 0.7 LAB EO# 0.0-1.80 K/uL EOS # Normal 0.1 LAB BA# 0-0.1 K/ul BASO # Normal 0.0 Performed By: #### CBC, DIFF (MANUAL) #### [facility] [address] [place] [address] DIFFERENTIAL Collected: 10/14/2017 Status: F Source: [place] 8:[address] [facility] REPOSITORY TYPE CODE TESTS RESULT OUT OF REFERENCE UNITS RANGE LAB TCC #CELLS TOTAL 100 CELLS COUNTED LAB POLY 42-80 % 69 Normal NEUTROPHILS LAB LYMPH 16-48 % LYMPH 19 Normal LAB MON 3-9 % MONOCYTE 11 High LAB EOS 0-8 % 1 Normal EOSINOPHIL LAB RM RBC MORPHOLOGY ESSENTIALLY NORMAL LAB IG IMMATURE NONE GRANS SEEN Performed By: #### CBC, DIFF (MANUAL) #### [facility] [address] [place] [address] ED.PDOC Observed: 10/14/2017 Status: F Source: [place] 8:[address] [facility] REPOSITORY DARIANA ROBERTS Female [id number] Attending provider: REG ALBIN TALAMANTES [id number] Crista Mccann 1955 62 DOS: 10/14/17 Hx/Exam - History of Present Illness Chief Complaint: SOB (SHORTNESS OF BREATH) Symptom Duration: 3-4 Symptom Duration: Week(s) Intensity: moderate Episode Frequency: constant Symptoms Improve with: rest Symptoms Worse with: exertion Assoc Sxs/Pertinent Hx: cough with yellow/green sputum, SOB Patient/Family Denies: CP, fever, V/D, abd pain Additional Comments: Has a history of COPD but has been improved, her Drug Purchaser, Dr Llanse, told her her COPD had gone away? Uses albuterol inhaler at home, currently using 3-4 times/day, no other respiratory medications, no home oxygen. Hypoxic in triage, 85% on RA. No recent hospitalizations. HX of previous MT, but no stents, previous valve replacement. No hx of PE/DVT. - Review of Systems All Other Systems: Reviewed and Negative, except as stated below. Constitutional: Denies: Fever, Chills Eyes: Denies: Blurred Vision ENT: Denies: Nose Congestion Respiratory: Cough, Shortness of Breath, Sputum, Wheezing Cardiovascular: Denies: Chest Pain Gastrointestinal: Denies: Vomiting, Abdominal Pain, Diarrhea Genitourinary: Denies: Dysuria Musculoskeletal: Denies: Neck Pain, Back Pain Skin: Denies: Rash Neurological: Denies: Headache, Weakness - Past Medical History General History: Yes CAD, Yes COPD, Yes HTN Comments: high cholesterol, Gout - Past Surgical History Comments: cardiac valve replacement - Social History Hx Alcohol Use: No Hx Drug Use: None - Physical Exam General Appearance: awake, alert, no apparent distress Eyes: EOMI Head, Ears, Nose, and Throat: mucous membranes moist Neck: supple, non-tender Respiratory: wheezing, other (significant decreased air movement, faint wheezing throughout, mild increased work of breathing but no distress (on 4L O2)) Cardiovascular: regular rate, rhythm, no murmur, no gallop Abdomen/GI: non tender, soft Back: no CVA tenderness, no vertebral tenderness, normal ROM Extremity: normal range of motion, non-tender, normal inspection Neurologic: no motor/sensory deficits, normal strength, speech clear/fluent, buttonhole maker II-XII intact Psychiatric: oriented x3, calm, normal affect Skin Exam: warm/dry, normal color Lymphatic: no adenopathy - Source of History Source of History: Nursing Notes/Vital Signs/Triage Reviewed and Agree Note(s) - Physician Notes Additional Notes: 10/14/17 22:04 CXR interpreted by myself as LLL infiltrate vs atelectasis, given clinical picture have treated as pneumonia with Rocephin and Levaquin. After aerosols, moving air better but still SOB. Desats to mid -80s and got more short of breath when taken off oxygen, will require admission for further eval and treat. EKG - EKG EKG Interpretation: NSR at rate 66, LVH, normal ST seg and T waves Medical Decision Making *DECISION MAKING COMPLEXITY: High Discharge Screen - Discharge Discharge Problem: LLL pneumonia, COPD exacerbation Disposition: ADMIT TO HOSPITAL Condition: Fair Referrals: Florence Frazier [PROVISIONAL] - <Electronically signed by Crista Mccann > Dictated By: Dr. Crista Mccann Dictated Date/Time:10/14/172028 Electronically Signed Date/Time: 10/14/172205 PROGRESS Observed: 09/02/2017 Status: COMPLETED Source: [place] 2:09 PM [facility] [place] REPOSITORY HNO ID: [id number] Author: Lori (Viktor) Older Service: (none) Author Type: Nurse Practitioner Type: Progress Notes Filed: 09/03/2017 7:08 AM Note Text: CC: Patient presents with: Cough x 3 weeks HPI: Dariana Roberts is a 62 year old female who presents to the office with complaint of cough, productive with dark green sputum with occasional streaks of blood for 3 weeks. Symptoms are staying the same. Associated symptoms includes rhinorrhea, worsening wheezing and dyspnea, fatigue, decreased appetite and fever two weeks ago. Denies vomiting and diarrhea. Treatments tried include OTC cold medicine with no relief of symptoms. Sick contacts: unknown. History of asthma, frequent episodes of bronchitis, chronic bronchitis, bronchiectasis or COPD: Yes COPD listed as diagnosis in chart but patient reports her layout man Dr. Llanes told her she does not have COPD Smoker: No Seasonal/environmental allergies: No The ROS is otherwise negative. The patient's pmh, medications, allergies, and past visits are reviewed. PHYSICAL EXAM: BP 100/80 Pulse 76 Temp 36.4 ?C (97.6 ?F) (Temporal Artery) Resp 16 Wt 113.9 kg (251 lb) SpO2 98% BMI 44.46 kg/m2 General appearance: tired/ill appearing, in no acute distress Head: Normocephalic Eyes: conjunctiva pink and moist, no icterus, sclera white, non-injected Ears: Right ear: Normal, TM - clear with good landmarks. Left ear: Normal, TM - clear with good landmarks Nose: sinus tenderness over maxillary sinuses left. Oropharynx:No erythema, exudates or tonsillar hypertrophy. Neck:supple and no adenopathy Heart: Negative. RRR without obvious murmur, gallop, or rubs. No ectopy. Lungs: diminished breath sounds, wheezing diffusely, no rales or rhonchi ASSESSMENT/PLAN: 1. Acute bronchitis, unspecified organism - ICD9: 466.0, ICD10: J20.9 Albuterol nebulizer in office with improvement in wheezing, patient states she feels the same - Due to patient's history and multiple co-morbidities will treat with Doxycycline - Encouraged to increase fluids, rest, humidifier, expect to cough 2-3 weeks - Pharmacologic treatment: Prednisone burst with taper, Bromfed for cough, Continue with Albuterol inhalers. - Symptomatic treatment prn analgesia - Follow up in 1-2 weeks if symptoms do not resolve or they worsen with onset of onset of new fever, localized chest pains and new headache with increase in nasal congestion/drainage Lori Older, STORE PERSON Prescription instructions reviewed with patient as applicable. Potential red flag symptoms discussed with the patient. Reviewed appropriate action plan to take if red flag symptoms occur. Patient agreeable to treatment plan. ALLERGIES ALLERGIES DATE TYPE / CODE NAME / CODE REACTION SEVERITY SOURCE 11/22/2017 Drug No Known Drug Unknown [place] Allergy/416 Allergy/[id number] [facility] 561119(SNOM 409(RXNORM) Hospital ED CT) Repository 11/07/2016 Drug Iodinated Swelling Unknown [facility] Allergy/416 Contrast- [facility] 062718(SNOM and IV Repository ED CT) Dye/[id number](R XNORM) 01/18/2016 DRUG FENTANYL ITCHING [facility] INGREDI/419 [place] 516650(SNOM Repository ED CT) 05/31/2015 Drug IODINATED ITCHING [facility] Class/34017 CONTRAST- ORAL [place] 1003(SNOMED AND IV DYE Repository CT) 08/27/2012 Environ/420 SEASONAL UNKNOWN [facility] 898333(SNOM ALLERGIES [place] ED CT) Repository ENCOUNTERS ENCOUNTERS ADMIT/DISCHARGE ACCOUNT ADMITTING ENCOUNTER LOCATION SOURCE NUMBER CLASS 08/07/2018 [id number] [facility] Repository 07/16/2018/07/16/20 [id number] Ambulatory [place] [facility] [place] Repository 07/16/2018/07/16/20 [id number] Ambulatory [address] [place] Repository 07/07/2018/07/08/20 [id number] Ambulatory [address] [place] Repository 07/02/2018/07/03/20 [id number] Ambulatory [place] [facility] [place] Repository 06/05/2018/06/09/20 [id number] Ambulatory [place] 18 [facility] [place] Repository 06/04/2018 [id number] Ambulatory [facility] ing:PT Repository 05/29/2018/05/30/20 [id number] Ambulatory [place] [facility] [place] Repository 05/01/2018/05/02/20 [id number] Ambulatory [address] [place] Repository 04/28/2018/04/29/20 [id number] Ambulatory [place] [facility] [place] Repository 04/28/2018/04/28/20 [id number] Ambulatory [place] [facility] [place] Repository 04/10/2018/04/10/20 [id number] Ambulatory [address] [place] Repository 04/10/2018/04/11/20 [id number] Ambulatory [address] [place] Repository 04/03/2018/04/04/20 [id number] Ambulatory [address] [place] Repository 01/21/2018 [id number] Ambulatory [facility] ing:LB Repository 01/20/2018 [id number] Ambulatory [facility] ing:MAMMO Repository 12/28/2017 [id number] Ambulatory [facility] ing:ULTR Repository 12/17/2017 [id number] Ambulatory [facility] ing:ULTR Repository 12/12/2017 [id number] Ambulatory [facility] ing:LB Repository 11/29/2017 [id number] Ambulatory [facility] ing:RAD Repository 11/22/2017/11/23/19 [id number] Emergency [place] [address] [facility] ing:ER Repository 10/14/2017/10/20/19 [id number] Rachel Bo Inpatient [place] [facility] ing:PCUBRoom: Repository PCUBBBed: 215 09/02/2017/09/02/[id number] Repository PAYERS PAYERS ENCOUNTER GUARANTOR PAYER SUBSCRIBER SOURCE 08/07/2018 DARIANA Lozoya Primary DARIANA Lozoya [place] [id number] Insurance:MYCARE CRSC CURFMANDOB: Community [address] *[place] [facility] [id number] Repository [address]Hco: 330 [id number] [phone] (HP) Date:[id number] CLAIMS [address], [place] [address]QJ: 08/07/2018 Secondary NOT GIVENUNK [place] Insurance:SELF PAY [facility] Number: Effective Repository Date:2018-08-07 06/04/2018 DARIANA Lozoya Primary DARIANA Lozoya [place] [id number] N Insurance:MYCARE CRSC CURFMANDOB: Community [address] *IN [facility] [id number] Number: Repository [address]Emh: 330 [id number] [phone] (HP) Date:[id number] CLAIMS [address] [place] [id number]: 06/04/2018 Secondary NOT GIVENUNK [place] Insurance:SELF PAY [facility] Number: Effective Repository Date:2018-04-29 01/21/2018 DARIANA Lozoya Primary DARIANA Lozoya [place] [id number] Insurance:CAREMYCAREO CURFMANDOB: Community [address] [facility] Number: [id number] [id number] [address] Repository [address]Yxl: (330) Date:[id number] [phone] (HP) [place] [address]AC: 01/21/2018 Secondary DARIANA M [place] Insurance:SELF CURFMANUNK Community PAYPolicy Number: Hospital Effective Repository Date:2018-01-21 01/20/2018 DARIANA Lozoya Primary DARIANA Lozoya [place] [id number] Insurance:CAREMYCAREO CURFMANDOB: Community [address] HDUALPolicy Number: [id number] [id number] [address] Repository [address]Noy: (330) Date:1754-07-57EY [address] [phone] (HP) [place] [address] 19193YA: 01/20/2018 Secondary DARIANA M [place] Insurance:SELF CURFMANUNK Community PAYPolicy Number: Hospital Effective Repository Date:2018-01-16 12/28/2017 DARIANA M Primary DARIANA Lozoya [place] [id number] Insurance:CAREMYCAREO CURFMANDOB: Community [address] HDUALPolicy Number: [id number] [address] [id number] [address] Repository [address]Xzz: (330) Date:[id number] [address] [phone] (HP) [place] [address] 83031VY: 12/28/2017 Secondary DARIANA Lozoya [place] Insurance:SELF CURFMANUNK Community PAYPolicy Number: Hospital Effective Repository Date:2017-12-25 12/17/2017 DARIANA Lozoya Primary DARIANA Lozoya [place] [id number] Insurance:CAREMYCAREO CURFMANDOB: Community [address] HDUALPolicy Number: [id number] [address] [id number] [address] Repository [address]Jol: (330) Date:[id number] [address] [phone] (HP) [address] [address] 74162IC: 12/17/2017 Secondary DARIANA M [place] Insurance:SELF CURFMANUNK Community PAYPolicy Number: Hospital Effective Repository Date:2017-12-17 12/12/2017 DARIANA M Primary DARIANA M [place] [id number] Insurance:CAREMYCAREO CURFMANDOB: Community [address] HDUALPolicy Number: [id number] [address] [id number] [address] Repository [address]Fdf: (330) Date:[id number] [address] -4183 (HP) [address] [address] 24090VN: 12/12/2017 Secondary DARIANA M [place] Insurance:SELF CURFMANUNK Community PAYPolicy Number: Hospital Effective Repository Date:2017-12-12 11/29/2017 DARIANA M Primary DARIANA Lozoya [place] [id number] Insurance:CAREMYCAREO CURFMANDOB: Community [address] HDUALPolicy Number: [id number] [address] [id number] [address] Repository [address]Zlw: (330) Date:[id number] [address] -4183 (HP) [address] [address] 98378RD: 11/29/2017 Secondary DARIANA M [place] Insurance:SELF CURFMANUNK Community PAYPolicy Number: Hospital Effective Repository Date:2017-11-29 11/22/2017 DARIANA M Primary DARIANA Lozoya [place] [id number] Insurance:CAREMYCAREO CURFMANDOB: Community [address] HDUALPolicy Number: [id number] [address] [id number] [address] Repository [address]Rkt: (330) Date:[id number] [address] [phone] (HP) [address] [address] 64324WV: 11/22/2017 Secondary DARIANA M [place] Insurance:SELF CURFMANUNK Community PAYPolicy Number: Hospital Effective Repository Date:2017-11-22 10/14/2017 DARIANA M Primary DARIANA M [place] [id number] Insurance:CAREMYCAREO CURFMANDOB: Community [address] HDUALPolicy Number: [id number] [address] [id number] [address] Repository [address]Lbw: 330) Date:[id number] [address] [place] [address] [phone] (MS) [address], [place] [address] 66652US: 10/14/2017 Secondary DARIANA M [place] Insurance:MEDICARE IP CURFMANDOB: Community OPPolicy Number: [id number] [facility] [id number] [address] Repository Date: [address] [place] [address] [place] [address] [place], [place] [address]UM: 10/14/2017 Tertiary DARIANA M [place] Insurance:[facility] [address] [facility] Community PAYPolicy Number: Hospital Effective Repository Date:2017-10-14
== END ==
PROVIDERS: Family Provider Internal Medicine; PCP Internal Medicine; Referring Provider Anesthesiology Pain Medicine; Visit Provider Anesthesiology Pain Medicine
DX: M25.562 Pain in left knee (principal)
CPT/HCPCS: 73564

== ENCOUNTER → 2018-08-21 15:01 | Outpatient (CLI) | payer MEDICARE, SELFPAY ==
--- NOTE | 2018-08-21 15:04 | RAD_ITS ---
STUDY: X-RAY - CERVICAL SPINE REASON FOR EXAM: Female, 63 years old. Pain. TECHNIQUE: 3 view(s) of the cervical spine were obtained. COMPARISON: 10/11/2015 FINDINGS: Normal anterior atlantoaxial articulation. Normal odontoid process. No significant change. No acute abnormality. Normal lordosis. Multilevel spondylosis. Multilevel [id number] degenerative disc disease. Findings most pronounced at C5-C6. The soft tissue structures are unremarkable. RAD/Cerv Spine 2 or 3 Views IMPRESSION: Stable degenerative changes. No acute abnormality. Electronically Signed: Pan Lackey MD at 0:00 EST , Service support ,
== END ==
PROVIDERS: Family Provider Internal Medicine; PCP Internal Medicine; Referring Provider Anesthesiology Pain Medicine; Visit Provider Anesthesiology Pain Medicine
DX: M54.2 Cervicalgia (principal)
CPT/HCPCS: 72040

== ENCOUNTER → 2018-10-15 15:35 | Outpatient (CLI) | payer MEDICARE, SELFPAY | PROVIDERS: Family Provider Internal Medicine; PCP Internal Medicine; Referring Provider Anesthesiology Pain Medicine; Visit Provider Anesthesiology Pain Medicine | DX: F11.20 Opioid dependence, uncomplicated (principal) | CPT/HCPCS: 36415; 80307 ==

== ENCOUNTER → 2018-11-13 09:36 | Outpatient (CLI) | payer MEDICARE, SELFPAY ==
--- NOTE | 2018-11-13 09:37 | RAD_ITS ---
STUDY: X-RAY - RIGHT KNEE REASON FOR EXAM: Increasing knee pain. TECHNIQUE: 4 view(s) of the knee. COMPARISON: Radiographs 12/15/2014. FINDINGS: There is osteopenia. Normal visualized distal femur. Normal visualized proximal tibia and fibula. Normal proximal tibiofibular articulation. There is arthrosis of the medial femorotibial compartment with marginal osteophytes and severe joint space narrowing, increased since the prior study. Normal lateral femorotibial compartment. There is arthrosis of the patellofemoral articulation with moderate joint space narrowing, increased since the prior study. There is chronic fracture deformity of the medial patella as on the prior study. There is vascular calcification. 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 Chronic fracture deformity of the medial patella. Osteopenia. Electronically Signed: Sina Villasenor MD at 10:27 EDT Tel , Service support ,
== END ==
PROVIDERS: Family Provider Internal Medicine; PCP Internal Medicine; Referring Provider Orthopaedic Surgery; Visit Provider Orthopaedic Surgery
DX: R52 Pain, unspecified (principal)
CPT/HCPCS: 73564

== ENCOUNTER → 2018-11-26 16:49 | Outpatient (CLI) | payer MEDICARE, SELFPAY ==
--- NOTE | 2018-11-26 17:30 | MRI_ITS ---
STUDY: MRI RIGHT KNEE REASON FOR EXAM: Chronic knee pain, evaluate for cystic lesion. TECHNIQUE: Standardized fat and water weighted pulse sequences were obtained in all 3 orthogonal planes. COMPARISON: Radiographs 11/13/2018. FINDINGS: There is attrition of the free margin of the posterior horn and body of the medial meniscus (proton-density sagittal images 30-33; proton-density coronal images 17-21) consistent with free edge tear/degeneration. There is mild peripheral subluxation of the medial meniscus. There is arthrosis of the medial femorotibial compartment with marginal osteophytes and chondral thinning (T2 sagittal image 17). Normal medial femoral condyle and tibial plateau. There is mild periligamentous inflammation of the medial collateral ligament (T2 coronal image 19). Normal distal semimembranosus, gracilis and semitendinosus tendons. There is a horizontal tear of the inferior articular surface near the free margin of the body of the lateral meniscus (proton-density coronal images 17, 18). Normal hyaline cartilage of the lateral femorotibial compartment. Normal lateral femoral condyle and tibial plateau. Normal proximal tibiofibular articulation. Normal lateral collateral (fibular) ligament. Normal popliteus tendon. Normal biceps femoris tendon. Normal anterior cruciate ligament (ACL). Normal posterior cruciate ligament (PCL). Normal congruent patellofemoral articulation. There is arthrosis of the patellofemoral compartment with partial-thickness chondral loss (T2 sagittal image 9). Normal medial and lateral patellar retinaculum. Normal quadriceps tendon. Normal patellar tendon. Normal Hoffa's fat pad. There is a very small joint effusion. There is edema in the subcutis adipose space. There is chronic healed fracture deformity of the medial patella (proton density coronal images 32, 33) accounting for the defect at the anterior medial aspect of the patella on the sunrise radiograph view (T2 axial image 8). MRI/Lower Ext Joint Only (Routine) IMPRESSION: Tear/degeneration of the medial meniscus. Lateral meniscal tear. Arthrosis of the medial femorotibial and patellofemoral compartments. Mild periligamentous inflammation of the medial collateral ligament. Chronic healed fracture deformity of the medial patella, accounting for the defect at the anterior medial aspect of the patella on the sunrise radiographic view. Very small joint effusion. Electronically Signed: Sina Villasenor MD at 10:04 EDT Tel , Service support ,
[2018-11-26 17:35] LABS: CREATININE FINGERSTICK 1.5 mg/dL (0.55-1.02)
== END ==
PROVIDERS: Family Provider Internal Medicine; PCP Internal Medicine; Referring Provider Orthopaedic Surgery; Visit Provider Orthopaedic Surgery
DX: Z01.812 Encounter for preprocedural laboratory examination (principal); M89.9 Disorder of bone, unspecified
CPT/HCPCS: 73721

== ENCOUNTER 2019-01-21 14:00 | Outpatient (RCR) | payer MEDICARE, SELFPAY ==
[2018-12-09 14:08] VITALS: BMI 55.4
--- NOTE | 2018-12-31 15:25 | HP.PTEVAL_ITS ---
Patient's Visit Information DARIANA ROBERTS is a 63 year old F referred to Physical Therapy by Isabela Abraham DO with a diagnosis of UNILATERAL PRIMARY OSTEOARTHRITIS ,RIGHT KNEE. Date of Evaluation: 12/31/18 Physical Therapist: Max Anderson, PT, Cert MDT, OCS - Visit Plan Frequency: 2x /Week Duration: 4 Weeks Plan: Aquatic PT for ROM ,strength right knee,endurance ex's,balance - Subjective Findings: This 63 y/o female presents to physical therapy with right knee pain. Patient has had right knee pain many years with progressive DJD with patient is a canidate for TKR . Patient pain in global knee desribed ache and sharp pain. Symptoms worse with walking,standing ,elevating from chair. Symptoms some better with pain MEDS. Patient has parathesia/tingling in knee. Patient pain affects sleeping. Unable to kneel/squat.Patient lives efficiecy appartment with curb step with banister.Patient pain affects ADL'S and self hygine. Patient has walk in shower with seat and grap rails. Patient knee pain affects QOL .COMORBITIES: CABG -VALVE ,OA,CHF ,,DDD,COPD,ANXIETY,DEPRESSION,LBP. SOCIAL: lives alone. VOCATION:disablity - Pain Right Knee Pain Intensity (Out of 10): 10 Pain Intensity Range: 10 - Objective POSTURE: mild foward posture,hips/knees flexed. NEURO: intact. EDEMA: 2+ bilateral lower legs. PALAPTION: tender medial/lateral knee joint line. AROM: 0-118 supine knee flexion. MMT: quads 3+/5,hams 3+/5,hip flexion 3+/5 ankle 4- /5. STAIRS: one step at time. GAIT: mild foward posture slow kylie antalgic gait. BALANCE: fair+ with fww. FLEXABLITY: hams mod tight - Goals Goal 1:: Independant with Aquatic PT Goal Time Frame: 4-6 Weeks Goal 2:: Patient decrease right knee pain by 30% or greater to improve function Goal Time Frame: 4-6 Weeks Goal 3:: Patient increase ROM of knee flexion by 5 degrees or greater to improve function. Goal Time Frame: 4-6 Weeks Goal 4:: Patient to increase strength quads/hams 4-/5 to improve gait Goal Time Frame: 4-6 Weeks Goal 5:: Patient to improve LFES score by 5 points or greater to improve function. Goal Time Frame: 4-6 Weeks - Rehabilitation Potential Physical Therapy Diagnosis: Thos patient has severe OA right knee with pain ,dec rease ROM,strength impairs ADL'S with walking,standing thus benifit from skilled PT Rehabilitation Potential: Good - Anticipated Interventions Patient/Client Instruction: Educate patient on: Condition, Plan of Care For the Purpose of:: To decrease pain, To increase ROM, To improve muscle performance and motor function, To improve ability to perform ADL's, To increase tolerance to activity/condition/position, To improve performance and independence with ADL's, To improve ability of physical actions for vilma e/community/work/leisure, To improve gait and locomotor functions, To improve health of tissue, To decrease soft tissue restriction, To increase flexibility/ROM, To improve ability to perform tasks related to life management Therapeutic Exercise to Include: Strength training, Endurance training, Balance training, In an aquatic setting, Passive ROM, Active ROM Comment: hip/knee For the Purpose of:: To decrease pain, To increase ROM, To improve muscle performance and motor function, To improve ability to perform ADL's, To increase tolerance to activity/condition/position, To improve ability of physical actions for home/community/work/leisure, To improve gait and locomotor functions, To improve health of tissue, To increase flexibility/ROM, To improve endurance, To improve balance, To improve safety with gait Thank you for the opportunity to evaluate your patient. For Medicare and Medicare HMO plans, please review the plan of care and approve it. It will need to be FAXED BACK to us at [phone] for Medicare purposes. For Medicare only, by signing this I certify the plan of care. Please let me know if there are questions or concerns regarding this plan of care. Physician Signature: Date:
--- NOTE | 2019-03-27 12:54 | HP.PTDCNRP_ITS ---
HP - Discharge Summary (1) - Patient Information DARIANA ROBERTS was seen in my office for initial evaluation on 12/31/18. The following Plan of Care was established for this patient: Initial Frequency: 2x /Week Initial Duration: 4 Weeks - Anticipated Interventions Patient/Client Instruction: Educate patient on: Condition, Plan of Care For the Purpose of:: To decrease pain, To increase ROM, To improve muscle perfo rmance and motor function, To improve ability to perform ADL's, To increase tolerance to activity/condition/position, To improve performance and independence with ADL's, To improve ability of physical actions for home/community/work/leisure, To improve gait and locomotor functions, To improve health of tissue, To decrease soft tissue restriction, To increase flexibility/ROM, To improve ability to perform tasks related to life management Therapeutic Exercise to Include: Strength training, Endurance training, Balance training, In an aquatic setting, Passive ROM, Active ROM For the Purpose of:: To decrease pain, To increase ROM, To improve muscle performance and motor function, To improve ability to perform ADL's, To increase tolerance to activity/condition/position, To improve ability of physical actions for home/community/work/leisure, To improve gait and locomotor functions, To improve health of tissue, To increase flexibility/ROM, To improve endurance, To improve balance, To improve safety with gait This patient was last seen in our office 01/21/19. Pertinent comments regarding their Physical therapy will appear below: Patient seen in PT for OA right knee for Aquatic PT for ROM/STRENGTH. At this point I will be discontinuing this patient from physical therapy. I would be happy to see this patient again in the future if found appropriate by the physician. Thank you! Max Anderson, PT, Cert MDT, OCS
== END 2019-01-21 19:00 | disposition home or self-care (01) ==
LOC: PT 14:00
PROVIDERS: Family Provider Internal Medicine; PCP Internal Medicine; Referring Provider Orthopaedic Surgery; Visit Provider Orthopaedic Surgery
DX: M19.90 Unspecified osteoarthritis, unspecified site (principal)
CPT/HCPCS: 97113; 97163

== ENCOUNTER 2019-03-06 12:30 | Emergency (ER) | payer MEDICARE, SELFPAY ==
[2018-12-09 14:08] VITALS: BMI 55.4
[2019-03-06 12:31] VITALS: BP 157/89; PULSE 72; RESP 16; TEMP 36.1; O2SAT 95; BMI 50.9
[2019-03-06 12:40] VITALS: TEMP 37.1
--- NOTE | 2019-03-06 12:44 | ED.VISSUMM ---
- ER Visit Summary Date of Service: 03/06/19 Chief Complaint: Cat bite History of Present Illness: The patient is a 63 F who states that about 22 hours ago she was bit by the neighbors cat. She states she sustained numerous abrasions and puncture wounds to the right leg. Patient states now it is very tender and is beginning to have redness. Unknown last tetanus shot. Physical Examination: Afebrile vital signs are stable Gen: Well-nourished well-developed Head: Normocephalic atraumatic Eyes: Perrl EOMI ENT: TMs clear no rhinorrhea moist mucous membranes Neck: Supple no lymphadenopathy no JVD nontender CVS: Regular rate rhythm no murmurs normal S1-S2 Respiratory: No distress clear to auscultation bilaterally chest nontender Abdomen: Soft nontender nondistended normal bowel sounds no masses Back: Nontender Extremity: Patient has bilateral lower extremity lymphedema. There are numerous abrasions to the right leg. There are several puncture wounds to the posterior right calf. There is minimal erythema. There is no lymphangitic streaking. Skin: Normal color no rash Neuro: alert orientated ?3 CN II-XII intact normal strength sensatione Psych: Normal affect normal mood r Test Results: X-rays were obtained to evaluate for radiopaque foreign body. I do not see any obvious foreign bodies in the area of the cat bite. Emergency Department Course and Treatment: Wounds were cleansed and dressed. Tetanus was updated with Adacel. She will be started on Augmentin. Impression: 1. Right leg cat bite cellulitis 2. Tetanus update This note was generated with [employer] dictation software. It may contain incorrect words, spelling, and punctuation that were not noted in review of the chart prior to signing ED Disposition - Plan for ED Patient: Disposition: Home or Assisted Living Instructions: Cat Bite Prescriptions: Amox/Clavulanate Tablet [Augmentin Tablet] 875 mg PO Q12H #20 tab Prescription Printed Referrals: Surya Hickey MD [Primary Care Provider] - 3-5 Days (for wound check) Additional Instructions: Monitor for any evidence that the wounds are worsening. Monitor for fever redness she denies red streak. Please return if you have any concerns or feel that it is worsening
--- NOTE | 2019-03-06 12:48 | RAD_ITS ---
STUDY: X-RAY - RIGHT TIBIA AND FIBULA REASON FOR EXAM: Female, 63 years old. Pain and swelling of the lower extremity following several catheter placed. TECHNIQUE: 4 view(s) of the tibia and fibula were obtained. COMPARISON: None. FINDINGS: Normal visualized tibia. Normal visualized fibula. Prior fusion of the talus and calcaneus. Diffuse soft tissue swelling. RAD/Tibia & Fibula 2 Views IMPRESSION: Diffuse soft tissue swelling. Electronically Signed: Jose Longo, at 13:07 EDT , Service support ,
[2019-03-06] MEDS: Diphth,Pertuss(Acell),Tet Vac 0.5 ML Vial IM (12:49)
[2019-03-06] MEDS: Amox/Clavulanate 875 MG Tablet PO (12:49)
== END 2019-03-06 13:30 | disposition home or self-care (01) ==
PROVIDERS: Emergency Provider Emergency Medicine; Family Provider Internal Medicine; PCP Internal Medicine
DX: L03.115 Cellulitis of right lower limb (principal); S81.851A Open bite, right lower leg, initial encounter; W55.01XA Bitten by cat, initial encounter; Z23 Encounter for immunization; I10 Essential (primary) hypertension; E78.00 Pure hypercholesterolemia, unspecified; Z72.0 Tobacco use; F32.9 Major depressive disorder, single episode, unspecified; F41.9 Anxiety disorder, unspecified
CPT/HCPCS: 73590; 90471; 90715; 99283

== ENCOUNTER 2019-03-09 15:23 | Inpatient (IN) | payer MEDICARE, SELFPAY ==
[2019-03-09 15:24] VITALS: BP 154/74; PULSE 73; RESP 18; TEMP 35.9; O2SAT 94; BMI 50.6
--- NOTE | 2019-03-09 16:09 | ED.DCSUM_ITS ---
History of Present Illness Chief Complaint: Wound Informant: Patient Onset: Days - 3 Timing: Continuous Current Severity: Moderate Maximum Severity: Moderate Narrative: Patient presents after sustaining a cat bite 3 days ago she was put on Augmentin and continues to have pain, the wound is not getting any better, she saw her nurse practitioner who thought and may even be getting worse. She is complaining of a foul-smelling discharge from the wound. She has no fever chills. She has no other injury. It is mild to moderate. It is constant. Past Medical History - Allergies and Home Meds Allergies/Adverse Reactions: Allergies Iodinated Contrast Media [CONTRASTS] Allergy (Verified 03/09/19 15:24) Swelling lidocaine [From Lidoderm] Allergy (Verified 03/09/19 15:24) Rash Primary Care Physician: Surya Hickey MD [Primary Care Provider] - Past Medical History: - - He has multiple medical problems, she is not a diabetic. She is morbidly obese. Surgical History: cholecystectomy, - - AVR, unclear history, no on anticoa gulation. Smoking Status: Current every day smoker - Family History Maternal Family History: Reports: Diabetes Paternal Family History: Reports: Unknown Review of Systems All systems negative except as indicated General: Denies: Chills, Fever Cardiovascular: Denies: Chest pain, Palpitations Respiratory: Denies: Dyspnea, Cough Musculoskeletal: Reports: Myalgias, Swelling. Denies: Back pain Skin: Reports: Abscess, Wounds Neurological: Denies: Weakness, Parasthesia Endocrine: Denies: Polydipsia Hematologic: Denies: Easy bleeding Physical Exam Vital Signs/Narrative: Vital Signs Temp Pulse Resp BP Pulse Ox 03/09/19 15:24 96.7 F L 73 18 154/74 H 94 General: Well nourished, Obese, - Head: Normocephalic ENT: Moist mucous membranes Cardiovascular: Regular rate, Regular rhythm Respiratory: No distress Abdomen: Soft, Nontender Back: Nontender, Normal Inspection Extremities: - - There are multiple cat bites posterior right calf, there is one bite that has some induration and fluctuance. Skin: - - She does have surrounding cellulitis Neurological: Alert, Oriented x3 Psychological: Normal affect Diagnostic/Tx/Re-eval - Medical Decision Making An I&D was performed, there is very small amount of pus expectorated mostly the infection is throughout the soft tissues. Because of this I will start IV antibiotics and admit Decision admit stable condition Procedures Procedure(s): Incision and drainage. 1% lidocaine was used, you Shur-Clens to cleanse. I used hemostats to expand 1 of the cat bites. I probed the loculations, there is minimal pus. Patient tolerated procedure well ED Disposition - Plan for ED Patient: Diagnosis: Cat bite involving extremity Referrals: Surya Hickey MD [Primary Care Provider] -
[2019-03-09 16:30] LABS: Absolute Lymphocyte Count 0.85 X10^3/uL (0.83-4.51); Absolute Neutrophil Count 3.3 X10^3/uL (2.0-7.7); Basophil# 0.03 X10^3/uL; Basophil% 0.6 % (0-1); Eosinophil# 0.27 X10^3/uL; Eosinophils% 5.4 % (0-5); Hematocrit 40.6 % (37-47); Hemoglobin 12.7 g/dL (12.0-15.0); Lymphocyte # 0.85 X10^3/ul (4.0); Lymphocyte % 17.1 % (19-41); Mean Corp Hgb Conc 31.3 g/dL (32-36); Mean Corpuscular Hgb 30.4 pg (27.0-32.0); Mean Corpuscular Volume 97.1 fL (81-99); Mean Platelet Vol. 11.3 fl (6.2-12.0); Monocyte% 10.1 % (0-10); NRBC Flagged by Analyzer 0 % (0-5); Neutrophil # 3.31 X10^3/uL (2.7-7.7); Neutrophil % 66.6 % (47-70); Platelet Count 177 K/mm3 (150-450); RBC Distribution Width CV 14.3 % (11.6-14.6); RBC Distribution Width SD 51.5 fl (35.1-43.9); Red Blood Count 4.18 M/mm3 (4.2-5.4)
[2019-03-09 16:42] VITALS: BP 146/78; PULSE 79; RESP 16; O2SAT 99
[2019-03-09 16:45] LABS: ALB/GLOB Ratio 0.7 RATIO (0.9-2.4); AST(SGOT) 16 U/L (15-37); Alanine Aminotransfer ALT/SGPT 16 U/L (13-56); Albumin, Serum 3.1 g/dL (3.2-5.0); Alkaline Phosphatase 134 U/L (45-117); Anion Gap 3 (5-15); BUN 14 mg/dL (7-18); BUN/Creat Ratio 14.9 RATIO (10-20); Calcium,Total 9.1 mg/dL (8.5-10.1); Chloride 105 mmol/L (98-107); Creatinine, Serum 0.94 mg/dL (0.55-1.02); EST Glomerular Filtration Rate 64 mL/min (>60); Est Glom Filt Rate - Afr Amer 78 mL/min (>60); Estimated Creatinine Clearance 51.99 ml/min; Globulin 4.2 g/dL (2.2-4.2); Glucose 101 mg/dL (74-106); Protein, Total 7.3 g/dL (6.4-8.2); Sodium Level 138 mmol/L (136-145)
[2019-03-09 16:47] VITALS: BP 150/76; PULSE 91; RESP 19; TEMP 37.1; O2SAT 99
--- NOTE | 2019-03-09 17:23 | PCM.HP.STD ---
<Paulette Serrano - Last Filed: 03/09/19 17:54> Problem List (1) Cat bite involving extremity Status: Acute (2) Dysphagia Status: Resolved (3) Benzodiazepine dependence Status: Chronic (4) COPD (chronic obstructive pulmonary disease) case management patient Status: Chronic (5) Obstructive sleep apnea Status: Chronic (6) Anxiety Status: Chronic (7) Depression Status: Chronic Qualifiers: Depression Type: unspecified Qualified Code(s): F32.9 - Major depressive disorder, single episode, unspecified (8) GERD (gastroesophageal reflux disease) Status: Chronic Qualifiers: Esophagitis presence: esophagitis presence not specified Qualified Code(s): K21.9 - Gastro-esophageal reflux disease without esophagitis (9) Hyperlipidemia Status: Chronic Qualifiers: Hyperlipidemia type: unspecified Qualified Code(s): E78.5 - Hyperlipidemia, unspecified (10) Morbid obesity Status: Chronic (11) Tobacco abuse Status: Chronic (12) Degenerative disc disease Status: Chronic Qualifiers: Mid-cervical spinal level: unspecified (13) H/O aortic valve replacement Status: Chronic (14) HTN (hypertension) Status: Chronic Qualifiers: Hypertension type: essential hypertension Qualified Code(s): I10 - Essential (primary) hypertension (15) Opiate dependence Status: Chronic History of Present Illness Date of Admission: 03/09/19 Chief Complaint: Right lower extremity cat bite with infection. The patient is a 63 year old F who presents emergency room due to right posterior calf cat bite. Patient initially presented to emergency room 03/06/2019 following cat bite where she was treated with Augmentin and given tetanus shot. She went to her primary care provider today for routine follow-up and cat bite was noted to appear infected and she was advised to return to the emergency room. She denies fever, chills. Reports right calf pain. Denies known significant drainage. She reports she was petting and feeding a neighbor's cats and her cat attacked her during that time. She has a past medical history of COPD, former tobacco use, anxiety, depression, hypertension, hyperlipidemia, CAD with history of MT, history of aortic valve replacement with bioprosthetic valve, J LUIS, chronic low back pain, super morbid obesity, gout, GERD. Past Medical History Past Medical History (Chronic Problems): Chronic Problems Benzodiazepine dependence (Chronic) COPD (chronic obstructive pulmonary disease) case management patient (Chronic) Obstructive sleep apnea (Chronic) Anxiety (Chronic) Depression (Chronic) GERD (gastroesophageal reflux disease) (Chronic) Hyperlipidemia (Chronic) Morbid obesity (Chronic) Tobacco abuse (Chronic) Degenerative disc disease (Chronic) H/O aortic valve replacement (Chronic) HTN (hypertension) (Chronic) Opiate dependence (Chronic) Allergies Iodinated Contrast Media [CONTRASTS] Allergy (Verified 03/09/19 15:24) Swelling lidocaine [From Lidoderm] Allergy (Verified 03/09/19 15:24) Rash Home Medications: Ambulatory Orders Medication Instructions Recorded Aspirin E.C. [Ecotrin] 81 mg PO DAILY@0800 12/31/14 Fluticasone 0.05% [Flonase Nasal 2 spray NASAL QHS 12/31/14 [place]] Allopurinol [Zyloprim] 300 mg PO DAILY 03/20/16 Gabapentin [Gralise] 300 mg PO TID 05/22/16 Magnesium Oxide [Mag-Ox 400] 400 mg PO BID 05/22/16 Albuterol Inhaler [Ventolin Hfa] 1 - 2 puff INHALATION Q4H PRN PRN 07/26/16 Bupropion HCl [Bupropion HCl Sr] 300 mg PO DAILY 07/26/16 Cyclosporine [Restasis] 2 drop EACH EYE BID 07/26/16 Amox/Clavulanate Tablet [Augmentin 875 mg PO Q12H #20 tab 03/06/19 Tablet] Aripiprazole [Abilify] 10 mg PO DAILY 03/06/19 Oxycodone Myristate [Xtampza ER] 9 mg PO BID 03/06/19 Pantoprazole Sodium 40 mg PO DAILY 03/06/19 Pramipexole Di-HCl [Mirapex] 1 mg PO DAILY 03/06/19 Alendronate Sodium [Fosamax] 70 mg PO SA 03/09/19 Atorvastatin Calcium [Lipitor] 20 mg PO DAILY 03/09/19 Calcium Carbonate/Vitamin D3 1 ea PO BID 03/09/19 [Oyster Shell Calcium-Vit D Tab] Carvedilol 25 mg PO BID 03/09/19 Cholecalciferol (Vitamin D3) 1,000 unit PO DAILY 03/09/19 [Vitamin D3] Citalopram [Celexa] 20 mg PO DAILY 03/09/19 Furosemide [Lasix] 40 mg PO DAILY 03/09/19 Potassium Chloride [Klor-Con M10] 20 meq PO BID 03/09/19 Trazodone HCl 100 mg PO QHS 03/09/19 Surgical History: cholecystectomy, - - AVR, right ankle surgery x2, hysterectomy x2, tonsillectomy Psychiatric History: Anxiety, Depression 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 Review of Systems Constitutional: Denies: Chills, Fever, Weight Change HEENT: Denies: Head Aches, Sinus Congestion, Sinus Drainage Cardiovascular: Denies: Chest Pain, Palpitations Respiratory: Denies: Cough, Shortness of breath at rest, Sputum production Gastrointestinal: Denies: Abdominal Pain, Nausea, Vomiting Genitourinary: Denies: Dysuria Musculoskeletal: Denies: Joint Pain, Joint Tenderness Skin: Reports: Wounds - Right calf wounds secondary to cat bite. Denies: Rash Neurological: Denies: Numbness, Tingling, Focal weakness Psychiatric: Reports: Anxiety, Depression. Denies: Homicidal Ideations, Suicidal Ideations Hematologic/ Lymphatic: Denies: Easy Bruising, Easy Bleeding VTE Information - Inpt Only VTE Present on Admission: No VTE Mechan Device Prophylaxis: None VTE Pharm Prophylaxis ordered?: Yes Patient Problems: Active and Suspected Problems Cat bite involving extremity (Acute) Cellulitis (Acute) - Physical Exam General: Alert, Oriented x3, Cooperative HEENT: Atraumatic, PERRLA, EOMI, Normocephalic Neck: Supple, No JVD, Negative Carotid Bruits Lungs: Clear to auscultation, Diminished Cardiovascular: Regular rate, Regular Rhythm, Normal S1, Normal S2, No murmurs Abdomen: Bowel Sounds Present, Soft, Non Tender, Non-Distended, Obese Extremities: No clubbing, No cyanosis, No edema Skin: No rashes, No breakdown, - - Right calf puncture wounds x4 with surrounding erythema, status post I&D. Musculoskeletal: No Tenderness to Palpation of Joints or Extremities Neurological: Cranial nerves II-XII grossly intact, Neuro grossly intact Psych/Mental Status: Normal Affect, Appropriate Vital Signs Temp Pulse Resp BP Pulse Ox 98.7 F 91 19 H 150/76 H 99 03/09/19 16:47 03/09/19 16:47 03/09/19 16:47 03/09/19 16:47 03/09/19 16:47 Oxygen Delivery Method Room Air Weight: 286 lb Body Mass Index (BMI) 50.6 Laboratory Tests Past 24 Hrs 03/09/19 03/09/19 16:20 16:20 WBC 5.0 RBC 4.18 L Hgb 12.7 Hct 40.6 MCV 97.1 MCH 30.4 MCHC 31.3 L RDW Std Deviation 51.5 H RDW Coeff of Pierre 14.3 Plt Count 177 MPV 11.3 Immature Gran % (Auto) 0.200 Neut % (Auto) 66.6 Lymph % (Auto) 17.1 L [place] % (Auto) 10.1 H Eos % (Auto) 5.4 H Baso % (Auto) 0.6 Absolute Neuts (auto) 3.3 Absolute Lymphs (auto) 0.85 Nucleated RBC % 0 Sodium 138 Potassium 4.0 Chloride 105 Carbon Dioxide 30.0 Anion Gap 3 L BUN 14 Creatinine 0.94 Estim Creat Clear Calc 51.99 Est GFR (MDRD) Af Amer 78 Est GFR (MDRD) Non-Af 64 BUN/Creatinine Ratio 14.9 Glucose 101 Calcium 9.1 Total Bilirubin 0.30 AST 16 ALT 16 Alkaline Phosphatase 134 H Total Protein 7.3 Albumin 3.1 L Globulin 4.2 Albumin/Globulin Ratio 0.7 L Assessment/Plan All Active Problems Cat bite involving extremity (Acute) Cellulitis (Acute) Dysphagia (Resolved) 1. Cat bite right lower extremity with associated cellulitis-status post I&D in ER. IV Unasyn. Wound RN consult. PRN pain regimen. 2. Chronic COPD-no acute exacerbation. As needed albuterol aerosol. 3. Former tobacco use-reports she quit in June. Encouraged continued cessation. 4. Anxiety/Depression-continue home Abilify, bupropion, Celexa, trazodone regimen. 5. Hypertension-stable, continue home carvedilol, Lasix regimen. 6. Hyperlipidemia-continue statin. 7. CAD with history of MT-continue aspirin, statin, carvedilol. 8. History of aortic valve replacement with bioprosthetic valve 9. J LUIS-unclear if CPAP use. 10. Chronic low back pain-continue home PRN pain regimen. 11. Super morbid obesity-encouraged diet and lifestyle modifications. 12. Gout-continue allopurinol regimen. 13. GERD-continue Protonix regimen. DVT prophylaxis-heparin subcu This patient was seen by HA Pardo under the supervision of Dr. Mckinney. <Magnolia Mckinney - Last Filed: 03/09/19 19:16> Problem List (1) Cellulitis Status: Acute Qualifiers: Site of cellulitis of extremity: lower extremity Laterality: right (2) Cat bite involving extremity Status: Acute (3) GERD (gastroesophageal reflux disease) Status: Chronic Qualifiers: Esophagitis presence: esophagitis presence not specified Qualified Code(s): K21.9 - Gastro-esophageal reflux disease without esophagitis (4) HTN (hypertension) Status: Chronic Qualifiers: Hypertension type: essential hypertension Qualified Code(s): I10 - Essential (primary) hypertension (5) Hyperlipidemia Status: Chronic Qualifiers: Hyperlipidemia type: unspecified Qualified Code(s): E78.5 - Hyperlipidemia, unspecified (6) Morbid obesity Status: Chronic History of Present Illness The patient is a 63 year old F [] Past Medical History Allergies Iodinated Contrast Media [CONTRASTS] Allergy (Verified 03/09/19 15:24) Swelling lidocaine [From Lidoderm] Allergy (Verified 03/09/19 15:24) Rash - Physical Exam Vital Signs Temp Pulse Resp BP Pulse Ox 97.4 F L 77 22 H 180/83 H 95 03/09/19 17:42 03/09/19 17:42 03/09/19 17:42 03/09/19 17:42 03/09/19 17:42 Oxygen Delivery Method Room Air Weight: 129.2 kg Body Mass Index (BMI) 50.4 Laboratory Tests Past 24 Hrs 03/09/19 03/09/19 16:20 16:20 WBC 5.0 RBC 4.18 L Hgb 12.7 Hct 40.6 MCV 97.1 MCH 30.4 MCHC 31.3 L RDW Std Deviation 51.5 H RDW Coeff of Pierre 14.3 Plt Count 177 MPV 11.3 Immature Gran % (Auto) 0.200 Neut % (Auto) 66.6 Lymph % (Auto) 17.1 L [place] % (Auto) 10.1 H Eos % (Auto) 5.4 H Baso % (Auto) 0.6 Absolute Neuts (auto) 3.3 Absolute Lymphs (auto) 0.85 Nucleated RBC % 0 Sodium 138 Potassium 4.0 Chloride 105 Carbon Dioxide 30.0 Anion Gap 3 L BUN 14 Creatinine 0.94 Estim Creat Clear Calc 51.99 Est GFR (MDRD) Af Amer 78 Est GFR (MDRD) Non-Af 64 BUN/Creatinine Ratio 14.9 Glucose 101 Calcium 9.1 Total Bilirubin 0.30 AST 16 ALT 16 Alkaline Phosphatase 134 H Total Protein 7.3 Albumin 3.1 L Globulin 4.2 Albumin/Globulin Ratio 0.7 L Assessment/Plan This patient was seen in conjunction with Paulette Serrano. I have independently interviewed and examined the patient and reviewed pertinent historical, laboratory, and other data. I have reviewed her note and concur with her documentation CC: Right calf pain and swelling ongoing for 3 days HPI: 63-year-old female with past medical history of CAD, hypertension, hyperlipidemia, super morbid obesity who comes in with a cat scratch on her right calf 3 days prior. Patient was seen in the ED the same day, and discharged with Augmentin. She went to see her primary care nurse practitioner today for her usual follow-up and was asked to come to the emergency department because her wound did not look good. In the ED, she underwent a bedside I&D with past being aspirated. Denied any fever or chills or dizziness or nausea or vomiting Rest of review of systems was negative PMHX: COPD not on oxygen, anxiety/depression's, hypertension, hyperlipidemia, history of aortic valve replacement PSHx: Open heart surgery, history of aortic valve replacement, status post cholecystectomy, tonsillectomy, hysterectomy, right ankle surgery x2 FHX: Mother of aneurysm, diabetes SHX: Quit smoking in June 2018, denies any use of alcohol or illicit drugs Physical Exam: Vitals: Temperature 96.7 F, heart rate 73, blood pressure 154/74, respiratory 18, SPO2 94% on room air Gen: Comfortable, morbidly obese, not pale, not jaundiced CVS:HS I +II, regular, no murmurs RESP: Clinically clear to auscultation GI: BS present and normal, soft, nontender, no palpable organs EXT: 4 posterior calf puncture wound with anterior lateral longitudinal scar, mild periwound erythema with no discharge. I&D done prior to exam. Labs: EGD was unremarkable as well as CMP. ASSESSMENT: 1. Cellulitis right calf, failed outpatient therapy 2. COPD, not in an acute exacerbation 3. Hypertension 4. Hyperlipidemia 5. Super morbid obesity 6. CAD 7. Status post aortic valve replacement 8. GERD Plan: Admit to regular nursing floor IV Unasyn Repeat blood work in a.m. Continue the rest of home medications Code Visit Inpatient E&M: 05756 Init Hosp L2
[2019-03-09 17:30] VITALS: BMI 50.4; BMI 50.5
[2019-03-09 17:42] VITALS: BP 180/83; PULSE 77; RESP 22; TEMP 36.3; O2SAT 95
[2019-03-09] MEDS: oxyCODONE 5 MG Tablet PO (18:11)
[2019-03-09 22:51] VITALS: BP 133/67; PULSE 72; RESP 18; TEMP 36.6; O2SAT 95
[2019-03-09] MEDS: Gabapentin 300 MG Capsule PO (22:54)
[2019-03-09] MEDS: Calcium Carb/Vitamin D 1 TABLET Tablet PO (22:54)
[2019-03-09] MEDS: Magnesium Oxide 400 MG Tablet PO (22:55)
[2019-03-09] MEDS: Carvedilol 25 MG Tablet PO (22:57)
[2019-03-09] MEDS: Fluticasone 0.05% 1 SPRAY NASAL.SRY 2 SPRAY NASAL (22:57)
[2019-03-09] MEDS: traZODone 100 MG Tablet PO (22:57)
[2019-03-09] MEDS: Heparin Injection (Vial) 5,000 UNIT/ML VIAL 5000 UNIT SC (22:59)
[2019-03-09 23:00] VITALS: PULSE 72; RESP 18; O2SAT 95
[2019-03-09] MEDS: Atorvastatin Calcium 20 MG Tablet PO (23:00)
[2019-03-09] MEDS: Nystatin Ointment 1 APPLIC TOPICAL (23:00)
[2019-03-09] MEDS: Menthol/Lanolin/Calamine/Znox 113 GM Tube 1 APPLIC TOPICAL (23:06)
[2019-03-09] MEDS: 0.9% NaCl Peripheral Flush Adult/Peds IV (23:24)
[2019-03-09] MEDS: 0.9% NaCl IVPB Med Flush (250 mL) 15 ML IV (23:24)
[2019-03-10] VITALS (7 sets, daily range): BP systolic 114–151; BP diastolic 48–62; PULSE 64–74; RESP 12–18; TEMP 36.4–36.8; O2SAT 93–99
[2019-03-10] MEDS: cycloBENZAPRine HCl 10 MG Tablet PO (00:39)
[2019-03-10] MEDS: 0.9% NaCl Peripheral Flush Adult/Peds IV ×2 (05:05→14:07)
[2019-03-10] MEDS: Gabapentin 300 MG Capsule PO ×3 (05:10→22:09)
[2019-03-10] MEDS: Heparin Injection (Vial) 5,000 UNIT/ML VIAL 5000 UNIT SC ×3 (05:10→22:09)
[2019-03-10] MEDS: Nystatin Ointment 1 APPLIC TOPICAL ×3 (05:10→22:37)
[2019-03-10 05:43] LABS: Absolute Lymphocyte Count 1.09 X10^3/uL (0.83-4.51); Absolute Neutrophil Count 3.1 X10^3/uL (2.0-7.7); Basophil# 0.03 X10^3/uL; Basophil% 0.6 % (0-1); Eosinophils% 5.8 % (0-5); Hematocrit 36.4 % (37-47); Hemoglobin 11.7 g/dL (12.0-15.0); Lymphocyte # 1.09 X10^3/ul (4.0); Lymphocyte % 21.2 % (19-41); Mean Corp Hgb Conc 32.1 g/dL (32-36); Mean Corpuscular Hgb 31.4 pg (27.0-32.0); Mean Corpuscular Volume 97.6 fL (81-99); Mean Platelet Vol. 11.1 fl (6.2-12.0); Monocyte# 0.63 X10^3/uL; Monocyte% 12.3 % (0-10); NRBC Flagged by Analyzer 0 % (0-5); Neutrophil # 3.08 X10^3/uL (2.7-7.7); Neutrophil % 59.9 % (47-70); Platelet Count 157 K/mm3 (150-450); RBC Distribution Width CV 14.3 % (11.6-14.6); RBC Distribution Width SD 51.2 fl (35.1-43.9); Red Blood Count 3.73 M/mm3 (4.2-5.4); White Blood Count 5.1 K/mm3 (4.4-11.0)
[2019-03-10 06:14] LABS: ALB/GLOB Ratio 0.8 RATIO (0.9-2.4); AST(SGOT) 19 U/L (15-37); Alanine Aminotransfer ALT/SGPT 14 U/L (13-56); Albumin, Serum 2.7 g/dL (3.2-5.0); Alkaline Phosphatase 117 U/L (45-117); Anion Gap 8 (5-15); BUN 14 mg/dL (7-18); BUN/Creat Ratio 11.5 RATIO (10-20); Calcium,Total 8.3 mg/dL (8.5-10.1); Chloride 106 mmol/L (98-107); Creatinine, Serum 1.22 mg/dL (0.55-1.02); EST Glomerular Filtration Rate 48 mL/min (>60); Est Glom Filt Rate - Afr Amer 57 mL/min (>60); Globulin 3.6 g/dL (2.2-4.2); Glucose 89 mg/dL (74-106); Potassium 4.1 mmol/L (3.5-5.1); Protein, Total 6.3 g/dL (6.4-8.2); Sodium Level 139 mmol/L (136-145)
--- NOTE | 2019-03-10 09:26 | NURSING ---
wound photo: right posterior lower leg
--- NOTE | 2019-03-10 09:27 | NURSING ---
wound photo: right anterolateral lower leg
[2019-03-10] MEDS: buPROPion (SR) 150 MG Tablet.SA PO (09:30)
[2019-03-10] MEDS: Menthol/Lanolin/Calamine/Znox 113 GM Tube 1 APPLIC TOPICAL (09:31)
[2019-03-10] MEDS: Calcium Carb/Vitamin D 1 TABLET Tablet PO ×2 (09:32→22:09)
[2019-03-10] MEDS: Magnesium Oxide 400 MG Tablet PO ×2 (09:33→22:11)
[2019-03-10] MEDS: ARIPiprazole 10 MG Tablet PO (09:33)
[2019-03-10] MEDS: Aspirin E.C. 81 MG Tablet PO (09:33)
[2019-03-10] MEDS: Pantoprazole Sodium 40 MG Tablet PO (09:34)
[2019-03-10] MEDS: Pramipexole Di-HCl 1 MG Tablet PO (09:34)
[2019-03-10] MEDS: Allopurinol 300 MG Tablet PO (09:34)
[2019-03-10] MEDS: Carvedilol 25 MG Tablet PO ×2 (09:36→22:12)
[2019-03-10] MEDS: Citalopram 20 MG Tablet PO (09:36)
[2019-03-10] MEDS: Furosemide 40 MG Tablet PO (09:37)
[2019-03-10 11:15] LABS: M R Staph aureus DNA By PCR Negative (Negative); Probe Check PASS; Specimen Processing Control PASS; Staph aureus DNA By PCR NEGATIVE (Negative)
--- NOTE | 2019-03-10 11:22 | CASEMGMT ---
Addendum entered by Gurpreet Simmons 03/10/19 12:27: RN CHRISS spoke with pt re: possible need for HHS. List of local agencies given to pt and reviewed. Pt first choice is [facility]. Pt states her neighbor Cammie would likely be willing to assist with dressing changes. Maria Esther PEREZ CM updated. Carlos MARRERO Original Note: RN CHRISS Assessment Presentation: Cellulitis from cat bite RLE. S/P I&D in ER Intro role of CM and purpose of RN CM assessment to patient in room. Pt is in chair, but sleepy. States she is able to participate in assessment. Demographics, PCP and Pharmacy verified. Pt states she lives independently in apartment. States she does have difficulty with daily tasks, but has not needed assistance up to this point. States she has Table Operator through [email or web address] who she is in contact with. PCP: Dr. Hickey. Pt states she uses taxi for transportation to appts Specialists: wound nurse Preferred Pharmacy: [facility] Insurance: [employer] Prescription Benefit: yes LNOK: meet Franco Living Arrangements: Lives in apartment with 3 steps in. States she completes on bathing, cleaning, meals. Uses rollator for ambulation. No services active at this time. Transportation: uses taxi service for appts, grocery shopping, etc. DME: rollator, Bipap. DREW is DME provider HHC: none. Pt would consider if recommended. Call to [facility]. they accept [employer] if pt is homebound. Patient DC goals: Home DC PLAN: Anticipate return home. If dressing changes are needed, pt may require assistance with these. Carlos MARRERO
[2019-03-10] MEDS: 0.9% NaCl IVPB Med Flush (250 mL) 150 ML IV (11:31)
--- NOTE | 2019-03-10 12:26 | CASEMGMT ---
Intro role of CM to patient and MANLEY form explained re: Observation status for treatment of cellulitis. Explained hospitalization will be paid per? insurance policy for Outpatient billing?and condition will continue to be evaluated for Inpt necessity. Also let pt know that [facility] sends paper in the billing packet with their phone number if questions arise. Discussed Pharmacy section of MANLEY form and self administered medication guideline.? Pt verbalizes understanding and does not have further questions. Form signed and placed in chart, copy to pt. CAL PEREZ BSN CM
--- NOTE | 2019-03-10 13:20 | PN_ITS ---
<Paulette Serrano - Last Filed: 03/10/19 14:15> Patient Problems: Active and Suspected Problems Cat bite involving extremity (Acute) Cellulitis (Acute) Subjective: Patient seen and examined. Resting comfortably in chair. Still has right calf tenderness. Redness improving. No significant drainage from puncture wounds. - Physical Exam General: Alert, Oriented x3, Cooperative HEENT: Atraumatic, PERRLA, EOMI, Normocephalic Neck: Supple, No JVD, Negative Carotid Bruits Lungs: Clear to auscultation, Diminished Cardiovascular: Regular rate, Regular Rhythm, Normal S1, Normal S2, No murmurs Abdomen: Bowel Sounds Present, Soft, Non Tender, Non-Distended, Obese Extremities: No clubbing, No cyanosis, No edema, Capillary Refill Less than 3 Seconds Skin: No rashes, No breakdown, - - Right calf puncture wounds x4 with surrounding erythema, status post I&D. Musculoskeletal: No Tenderness to Palpation of Joints or Extremities Neurological: Cranial nerves II-XII grossly intact, Neuro grossly intact Psych/Mental Status: Normal Affect, Appropriate Vital Signs Temp Pulse Resp BP Pulse Ox 97.8 F 64 18 114/48 L 93 03/10/19 10:50 03/10/19 10:50 03/10/19 10:50 03/10/19 10:50 03/10/19 10:50 Oxygen Flow Rate (L/min) 2 Oxygen Delivery Method Room Air Weight: 284 lb 13.396 oz Body Mass Index (BMI) 50.4 Intake and Output for Last 24 Hours 03/08/19 03/09/19 03/10/19 23:59 23:59 23:59 Intake Total 3153.5 / 3153.5 Balance 3153.5 / 3153.5 Laboratory Tests Past 24 Hrs 03/09/19 03/09/19 03/10/19 16:20 16:20 05:34 WBC 5.0 5.1 RBC 4.18 L 3.73 L Hgb 12.7 11.7 L Hct 40.6 36.4 L MCV 97.1 97.6 MCH 30.4 31.4 MCHC 31.3 L 32.1 RDW Std Deviation 51.5 H 51.2 H RDW Coeff of Pierre 14.3 14.3 Plt Count 177 157 MPV 11.3 11.1 Immature Gran % (Auto) 0.200 0.200 Neut % (Auto) 66.6 59.9 Lymph % (Auto) 17.1 L 21.2 [place] % (Auto) 10.1 H 12.3 H Eos % (Auto) 5.4 H 5.8 H Baso % (Auto) 0.6 0.6 Absolute Neuts (auto) 3.3 3.1 Absolute Lymphs (auto) 0.85 1.09 Nucleated RBC % 0 0 Sodium 138 Potassium 4.0 Chloride 105 Carbon Dioxide 30.0 Anion Gap 3 L BUN 14 Creatinine 0.94 Estim Creat Clear Calc 51.99 Est GFR (MDRD) Af Amer 78 Est GFR (MDRD) Non-Af 64 BUN/Creatinine Ratio 14.9 Glucose 101 Calcium 9.1 Total Bilirubin 0.30 AST 16 ALT 16 Alkaline Phosphatase 134 H Total Protein 7.3 Albumin 3.1 L Globulin 4.2 Albumin/Globulin Ratio 0.7 L S.aureus Protein A PCR MRSA (PCR) 03/10/19 03/10/19 05:34 08:00 WBC RBC Hgb Hct MCV MCH MCHC RDW Std Deviation RDW Coeff of Pierre Plt Count MPV Immature Gran % (Auto) Neut % (Auto) Lymph % (Auto) [place] % (Auto) Eos % (Auto) Baso % (Auto) Absolute Neuts (auto) Absolute Lymphs (auto) Nucleated RBC % Sodium 139 Potassium 4.1 Chloride 106 Carbon Dioxide 25.0 Anion Gap 8 BUN 14 Creatinine 1.22 H Estim Creat Clear Calc 38.30 Est GFR (MDRD) Af Amer 57 L Est GFR (MDRD) Non-Af 48 L BUN/Creatinine Ratio 11.5 Glucose 89 Calcium 8.3 L Total Bilirubin 0.30 AST 19 ALT 14 Alkaline Phosphatase 117 Total Protein 6.3 L Albumin 2.7 L Globulin 3.6 Albumin/Globulin Ratio 0.8 L S.aureus Protein A PCR NEGATIVE MRSA (PCR) Negative Medical Necessity - Tobacco Use Smoking Status: Former smoker Tobacco Use: Cigarettes Assessment/Plan All Active Problems Cat bite involving extremity (Acute) Cellulitis (Acute) Dysphagia (Resolved) 1. Cat bite right lower extremity with associated cellulitis-status post I&D in ER. IV Unasyn. Wound RN consult. PRN pain regimen. Wound culture pending. 2. Chronic COPD-no acute exacerbation. As needed albuterol aerosol. 3. Former tobacco use-reports she quit in June. Encouraged continued cessation. 4. Anxiety/Depression-continue home Abilify, bupropion, Celexa, trazodone regimen. 5. Hypertension-stable, continue home carvedilol, Lasix regimen. 6. Hyperlipidemia-continue statin. 7. CAD with history of MA-continue aspirin, statin, carvedilol. 8. History of aortic valve replacement with bioprosthetic valve 9. J LUIS-unclear if CPAP use. 10. Chronic low back pain-continue home PRN pain regimen. 11. Super morbid obesity-encouraged diet and lifestyle modifications. 12. Gout-continue allopurinol regimen. 13. GERD-continue Protonix regimen. 14. Chronic kidney disease stage III-at baseline, trend BMP. DVT prophylaxis-heparin subcu This patient was seen by HA Pardo under the supervision of Dr. Turcios. <Sabas Turcios F - Last Filed: 03/10/19 15:48> - Physical Exam Vital Signs Temp Pulse Resp BP Pulse Ox 97.8 F 64 18 114/48 L 93 03/10/19 10:50 03/10/19 10:50 03/10/19 10:50 03/10/19 10:50 03/10/19 10:50 Oxygen Flow Rate (L/min) 2 Oxygen Delivery Method Room Air Weight: 284 lb 13.396 oz Body Mass Index (BMI) 50.4 Intake and Output for Last 24 Hours 03/08/19 03/09/19 03/10/19 23:59 23:59 23:59 Intake Total 3153.5 / 3153.5 Balance 3153.5 / 3153.5 Microbiology Past 72 Hours 03/10/19 08:00 Gram Stain - Final Wound - Leg, Right Laboratory Tests Past 24 Hrs 03/09/19 03/09/19 03/10/19 16:20 16:20 05:34 WBC 5.0 5.1 RBC 4.18 L 3.73 L Hgb 12.7 11.7 L Hct 40.6 36.4 L MCV 97.1 97.6 MCH 30.4 31.4 MCHC 31.3 L 32.1 RDW Std Deviation 51.5 H 51.2 H RDW Coeff of Pierre 14.3 14.3 Plt Count 177 157 MPV 11.3 11.1 Immature Gran % (Auto) 0.200 0.200 Neut % (Auto) 66.6 59.9 Lymph % (Auto) 17.1 L 21.2 [place] % (Auto) 10.1 H 12.3 H Eos % (Auto) 5.4 H 5.8 H Baso % (Auto) 0.6 0.6 Absolute Neuts (auto) 3.3 3.1 Absolute Lymphs (auto) 0.85 1.09 Nucleated RBC % 0 0 Sodium 138 Potassium 4.0 Chloride 105 Carbon Dioxide 30.0 Anion Gap 3 L BUN 14 Creatinine 0.94 Estim Creat Clear Calc 51.99 Est GFR (MDRD) Af Amer 78 Est GFR (MDRD) Non-Af 64 BUN/Creatinine Ratio 14.9 Glucose 101 Calcium 9.1 Total Bilirubin 0.30 AST 16 ALT 16 Alkaline Phosphatase 134 H Total Protein 7.3 Albumin 3.1 L Globulin 4.2 Albumin/Globulin Ratio 0.7 L S.aureus Protein A PCR MRSA (PCR) 03/10/19 03/10/19 05:34 08:00 WBC RBC Hgb Hct MCV MCH MCHC RDW Std Deviation RDW Coeff of Pierre Plt Count MPV Immature Gran % (Auto) Neut % (Auto) Lymph % (Auto) [place] % (Auto) Eos % (Auto) Baso % (Auto) Absolute Neuts (auto) Absolute Lymphs (auto) Nucleated RBC % Sodium 139 Potassium 4.1 Chloride 106 Carbon Dioxide 25.0 Anion Gap 8 BUN 14 Creatinine 1.22 H Estim Creat Clear Calc 38.30 Est GFR (MDRD) Af Amer 57 L Est GFR (MDRD) Non-Af 48 L BUN/Creatinine Ratio 11.5 Glucose 89 Calcium 8.3 L Total Bilirubin 0.30 AST 19 ALT 14 Alkaline Phosphatase 117 Total Protein 6.3 L Albumin 2.7 L Globulin 3.6 Albumin/Globulin Ratio 0.8 L S.aureus Protein A PCR NEGATIVE MRSA (PCR) Negative Code Visit Addendum: Dr. Turcios I personally examined the patient and reviewed the chart. I agree with the above. 63-year-old female presenting from home after having a cat bite on her right calf. She was initially seen in the ER on Saturday and started on Augmentin that day, she presented to her primary care physician on Saturday and he thought that it looked infected and therefore sent her to the ER. She is afebrile without a leukocytosis and other than mild induration does not appear to be significantly infected. We will continue with another day of Unasyn and discharged tomorrow to complete her course of Augmentin. Wound cultures are pending. OBSV E&M: [id number] Subsequent observation care L2
--- NOTE | 2019-03-10 14:14 | CHAPLAIN ---
Type of Pastoral Visit _x__ Initial Visit ___ Follow-up Visit ___ On-call Visit ___ General Patient Visit ___ Spiritual Assessment ___ Family Conference ___ Bereavement ___ Rapid Response ___ Code Blue ___ Other (describe below) Pastoral Care Referral From _x__ Patient ___ Family ___ Nurse ___ Physician ___ Outside Machinist Helper ___ Alarm Service Technician ___ Other (describe below) Sacrament/Intervention ___ Active listening ___ Anointing ___ Yazdanism ___ Bereavement ___ Communion ___ [place] exploration ___ ___ Life review _x__ Prayer ___ Reconciliation ___ Sacrament of Sick _x__ Supportive presence ___ Wedding ___ Other (describe below) Pastoral Comments
[2019-03-10] MEDS: traZODone 100 MG Tablet PO (22:10)
[2019-03-10] MEDS: Atorvastatin Calcium 20 MG Tablet PO (22:12)
--- NOTE | 2019-03-10 23:39 | NURSING ---
pt called out numerous times c/o bipap mask and requesting to take off. in room with pt this RN educated pt regarding sleep apnea and the necessity of the mask. pt continues to refused to wear mask. 2 L o2 NC placed. notified respiratory
--- NOTE | 2019-03-10 23:51 | CPS ---
Pt. agreed to wear BiPaP, but shortly after having it on, she told nurse that she doesn't want to wear it. Pt. is back on 2L NC, and the BiPaP will be left in her room for future nights (in case she decides to try it). She has home device, but she states that she has no way of getting it up to the hospital
[2019-03-11] VITALS (12 sets, daily range): BP systolic 101–135; BP diastolic 42–59; PULSE 62–79; RESP 12–20; TEMP 36.7–37.9; O2SAT 88–97
[2019-03-11 06:00] LABS: Anion Gap 4 (5-15); BUN 18 mg/dL (7-18); BUN/Creat Ratio 15.7 RATIO (10-20); Calcium,Total 8.4 mg/dL (8.5-10.1); Chloride 105 mmol/L (98-107); Creatinine, Serum 1.15 mg/dL (0.55-1.02); EST Glomerular Filtration Rate 51 mL/min (>60); Est Glom Filt Rate - Afr Amer 62 mL/min (>60); Estimated Creatinine Clearance 40.63 ml/min; Glucose 96 mg/dL (74-106); Potassium 4.4 mmol/L (3.5-5.1); Sodium Level 139 mmol/L (136-145)
[2019-03-11] MEDS: Heparin Injection (Vial) 5,000 UNIT/ML VIAL 5000 UNIT SC ×3 (06:18→22:05)
[2019-03-11] MEDS: Nystatin Ointment 1 APPLIC TOPICAL ×3 (06:20→22:07)
--- NOTE | 2019-03-11 07:57 | CPS ---
patient only wore bipap for 45 minutes or so last night
[2019-03-11] MEDS: Aspirin E.C. 81 MG Tablet PO (08:47)
[2019-03-11] MEDS: 0.9% NaCl IVPB Med Flush (250 mL) 15 ML IV (08:50)
[2019-03-11] MEDS: Calcium Carb/Vitamin D 1 TABLET Tablet PO ×2 (08:53→22:06)
[2019-03-11] MEDS: Menthol/Lanolin/Calamine/Znox 113 GM Tube 1 APPLIC TOPICAL ×2 (10:12→22:04)
[2019-03-11] MEDS: Allopurinol 300 MG Tablet PO (10:12)
[2019-03-11] MEDS: Citalopram 20 MG Tablet PO (10:12)
[2019-03-11] MEDS: Pramipexole Di-HCl 1 MG Tablet PO (10:12)
[2019-03-11] MEDS: Carvedilol 25 MG Tablet PO ×2 (10:12→22:04)
[2019-03-11] MEDS: Pantoprazole Sodium 40 MG Tablet PO (10:12)
[2019-03-11] MEDS: Furosemide 40 MG Tablet PO (10:12)
[2019-03-11] MEDS: Magnesium Oxide 400 MG Tablet PO ×2 (10:12→22:06)
[2019-03-11] MEDS: buPROPion (SR) 150 MG Tablet.SA PO (10:12)
[2019-03-11] MEDS: ARIPiprazole 10 MG Tablet PO (10:12)
--- NOTE | 2019-03-11 10:37 | NURSING ---
Wound Center appt made for patient for March 17 at 1:15pm.
[2019-03-11] MEDS: Budesonide Respules 0.5 MG/2 ML AMPUL.NEB. INHALATION ×2 (10:51→19:00)
--- NOTE | 2019-03-11 11:19 | PN_ITS ---
<Paulette Serrano - Last Filed: 03/11/19 11:26> Patient Problems: Active and Suspected Problems Cat bite involving extremity (Acute) Cellulitis (Acute) Subjective: Patient seen and examined. Very lethargic this morning. Arises to voice and light touch however falls asleep after a brief amount of time. Patient also noted to have fever this morning, temp 100.2. - Physical Exam General: No apparent distress, Lethargic HEENT: Atraumatic, PERRLA, EOMI, Normocephalic Neck: Supple, No JVD, Negative Carotid Bruits Lungs: Clear to auscultation, Diminished Cardiovascular: Regular rate, Regular Rhythm, Normal S1, Normal S2, No murmurs Abdomen: Bowel Sounds Present, Soft, Non Tender, Non-Distended, Obese Extremities: No clubbing, No cyanosis, No edema, Capillary Refill Less than 3 Seconds Skin: - - Right calf puncture wounds x4 with surrounding erythema, status post I&D. Musculoskeletal: No Tenderness to Palpation of Joints or Extremities Neurological: Cranial nerves II-XII grossly intact, Neuro grossly intact Psych/Mental Status: Normal Affect, Appropriate Vital Signs Temp Pulse Resp BP Pulse Ox 100.2 F H 79 17 112/42 L 94 03/11/19 10:03 03/11/19 10:51 03/11/19 10:51 03/11/19 10:03 03/11/19 10:03 Oxygen Flow Rate (L/min) 3 Oxygen Delivery Method Nasal Cannula Weight: 284 lb 13.396 oz Body Mass Index (BMI) 50.4 Intake and Output for Last 24 Hours 03/09/19 03/10/19 03/11/19 23:59 23:59 23:59 Intake Total 3837.5 / 4087.5 796.5 / 796.5 Output Total 300 / 300 Balance 3837.5 / 3787.5 496.5 / 496.5 Microbiology Past 72 Hours 03/10/19 08:00 Gram Stain - Final Wound - Leg, Right Laboratory Tests Past 24 Hrs 03/11/19 05:15 Sodium 139 Potassium 4.4 Chloride 105 Carbon Dioxide 30.0 Anion Gap 4 L BUN 18 Creatinine 1.15 H Estim Creat Clear Calc 40.63 Est GFR (MDRD) Af Amer 62 Est GFR (MDRD) Non-Af 51 L BUN/Creatinine Ratio 15.7 Glucose 96 Calcium 8.4 L Medical Necessity - Tobacco Use Smoking Status: Former smoker Tobacco Use: Cigarettes Assessment/Plan All Active Problems Cat bite involving extremity (Acute) Cellulitis (Acute) Dysphagia (Resolved) 1. Cat bite right lower extremity with associated cellulitis-status post I&D in ER. IV Unasyn. Wound RN consult. PRN pain regimen. Wound culture showing 1+ gram-negative rods, rare gram-positive cocci, final report pending. Patient w ith increased lethargy this morning and fever. Obtain blood cultures. 2. Acute hypoxic respiratory insufficiency-patient's oxygen noted to be 86% on room air this morning. Patient lethargic as noted above. Refusing BiPAP. Obtain ABG. Continue supplement oxygen to maintain O2 at or above 90%. Patient will need walking pulse ox prior to discharge given history of chronic COPD and untreated J LUIS. 3. Chronic COPD-no acute exacerbation. As needed albuterol aerosol. 4. Former tobacco use-reports she quit in June. Encouraged continued cessation. 5. Anxiety/Depression-continue home Abilify, bupropion, Celexa, trazodone regimen. 6. Hypertension-stable, continue home carvedilol, Lasix regimen. 7. Hyperlipidemia-continue statin. 8. CAD with history of IN-continue aspirin, statin, carvedilol. 9. History of aortic valve replacement with bioprosthetic valve 10. J LUIS-unclear if CPAP use. 11. Chronic low back pain-continue home PRN pain regimen. 12. Super morbid obesity-encouraged diet and lifestyle modifications. 13. Gout-continue allopurinol regimen. 14. GERD-continue Protonix regimen. 15. Chronic kidney disease stage III-at baseline, trend BMP. DVT prophylaxis-heparin subcu This patient was seen by HA Pardo under the supervision of Dr. Turcios. <Sabas Turcios F - Last Filed: 03/11/19 14:39> - Physical Exam Vital Signs Temp Pulse Resp BP Pulse Ox 100.2 F H 79 17 112/42 L 94 03/11/19 10:03 03/11/19 10:51 03/11/19 10:51 03/11/19 10:03 03/11/19 10:03 Oxygen Flow Rate (L/min) 3 Oxygen Delivery Method Nasal Cannula Weight: 284 lb 13.396 oz Body Mass Index (BMI) 50.4 Intake and Output for Last 24 Hours 03/09/19 03/10/19 03/11/19 23:59 23:59 23:59 Intake Total 3837.5 / 4087.5 1128.5 / 1128.5 Output Total 300 / 300 Balance 3837.5 / 3787.5 828.5 / 828.5 Microbiology Past 72 Hours 03/10/19 08:00 Gram Stain - Final Wound - Leg, Right Wound Culture - Preliminary Gram negative cocco bacillus Laboratory Tests Past 24 Hrs 03/11/19 03/11/19 05:15 11:40 Specimen Type ART Sample Site L Radial pH 7.29 L Bicarbonate Actual 30.3 H POC Total CO2 32 Base Excess 4 H O2 Saturation 97 ABG pCO2 63.6 H ABG pO2 106 H Gennaro Test NA O2 Delivery Device Nasal Can Liter Flow 3.0 Blood Gas Notified Whom HOSP Blood Gas Notified Time 1145 Sodium 139 Potassium 4.4 Chloride 105 Carbon Dioxide 30.0 Anion Gap 4 L BUN 18 Creatinine 1.15 H Estim Creat Clear Calc 40.63 Est GFR (MDRD) Af Amer 62 Est GFR (MDRD) Non-Af 51 L BUN/Creatinine Ratio 15.7 Glucose 96 Calcium 8.4 L Code Visit Addendum: Dr. Turcios I personally examined the patient and reviewed the chart. I agree with the above. 63-year-old female presenting from home after having a cat bite on her right calf. She was initially seen in the ER on Saturday and started on Augmentin that day, she presented to her primary care physician on Saturday and he thought that it looked infected and therefore sent her to the ER. He is continue with a leukocytosis however she did become febrile today and she was also very lethargic in the morning. An ABG was obtained that showed a PCO2 of 63, she was initiated on BiPAP therapy for her new hypercapnic respiratory failure. We will continue with her home aerosols, as well as IV Unasyn for another day. Blood and wound cultures are pending, her erythema significantly reduced in the last 24 hours. OBSV E&M: 39080 Subsequent observation care L2
[2019-03-11 11:45] LABS: Base Excess 4 mmol/L (-2 to +2); Bicarbonate 30.3 mmol/L (22-26); Blood Gas Specimen Type ART; O2 Delivery Device Nasal Can; PO2 106 mmHG (75-100); SITE L Radial; SO2 97 % (95-99); Time Given 1145; Total Carbon Dioxide 32 mmol/L; pCO2 63.6 mmHg (35-45); pH 7.29 (7.35-7.45)
[2019-03-11] MEDS: Gabapentin 300 MG Capsule PO (14:20)
[2019-03-11] MEDS: Fluticasone 0.05% 1 SPRAY NASAL.SRY 2 SPRAY NASAL (22:03)
[2019-03-11] MEDS: traZODone 100 MG Tablet PO (22:05)
[2019-03-11] MEDS: Atorvastatin Calcium 20 MG Tablet PO (22:06)
--- NOTE | 2019-03-11 22:51 | CPS ---
PATIENT REFUSED TO WEAR BIPAP THIS EVENING.
[2019-03-12] VITALS (8 sets, daily range): BP systolic 107–136; BP diastolic 41–53; PULSE 60–72; RESP 18–20; TEMP 36.8–37; O2SAT 82–99
[2019-03-12] MEDS: Heparin Injection (Vial) 5,000 UNIT/ML VIAL 5000 UNIT SC ×2 (05:55→13:38)
[2019-03-12] MEDS: Nystatin Ointment 1 APPLIC TOPICAL (05:55)
[2019-03-12 06:07] LABS: Hematocrit 37.1 % (37-47); Hemoglobin 11.3 g/dL (12.0-15.0); Mean Corp Hgb Conc 30.5 g/dL (32-36); Mean Corpuscular Hgb 30.8 pg (27.0-32.0); Mean Corpuscular Volume 101.1 fL (81-99); Mean Platelet Vol. 11.3 fl (6.2-12.0); Platelet Count 149 K/mm3 (150-450); RBC Distribution Width SD 52.5 fl (35.1-43.9); Red Blood Count 3.67 M/mm3 (4.2-5.4); White Blood Count 5.8 K/mm3 (4.4-11.0)
[2019-03-12 06:24] LABS: Anion Gap 5 (5-15); BUN 20 mg/dL (7-18); BUN/Creat Ratio 20.4 RATIO (10-20); Calcium,Total 8.9 mg/dL (8.5-10.1); Chloride 104 mmol/L (98-107); Creatinine, Serum 0.98 mg/dL (0.55-1.02); EST Glomerular Filtration Rate 61 mL/min (>60); Est Glom Filt Rate - Afr Amer 74 mL/min (>60); Estimated Creatinine Clearance 47.68 ml/min; Glucose 102 mg/dL (74-106); Sodium Level 140 mmol/L (136-145)
[2019-03-12] MEDS: Budesonide Respules 0.5 MG/2 ML AMPUL.NEB. INHALATION (06:56)
--- NOTE | 2019-03-12 07:46 | CPS ---
Pt. refused BiPAP this morning. Educated pt. on importance of usage. Pt. still refused BiPAP. On 3L NC, will continue to monitor. RN aware.
[2019-03-12] MEDS: Magnesium Oxide 400 MG Tablet PO (08:43)
[2019-03-12] MEDS: Aspirin E.C. 81 MG Tablet PO (08:43)
[2019-03-12] MEDS: Calcium Carb/Vitamin D 1 TABLET Tablet PO (08:44)
[2019-03-12] MEDS: Pantoprazole Sodium 40 MG Tablet PO (10:30)
[2019-03-12] MEDS: ARIPiprazole 10 MG Tablet PO (10:30)
[2019-03-12] MEDS: Carvedilol 25 MG Tablet PO (10:30)
[2019-03-12] MEDS: buPROPion (SR) 150 MG Tablet.SA PO (10:30)
[2019-03-12] MEDS: Citalopram 20 MG Tablet PO (10:30)
[2019-03-12] MEDS: Furosemide 40 MG Tablet PO (10:30)
[2019-03-12] MEDS: Menthol/Lanolin/Calamine/Znox 113 GM Tube 1 APPLIC TOPICAL (10:30)
[2019-03-12] MEDS: Pramipexole Di-HCl 1 MG Tablet PO (10:30)
[2019-03-12] MEDS: Allopurinol 300 MG Tablet PO (10:30)
--- NOTE | 2019-03-12 11:19 | DCINST_ITS ---
- Discharge Diagnoses Current Active Problems: Current Active and Chronic Problems Cat bite involving extremity (Acute) Cellulitis (Acute) You will use the following diet at home:: Cardiac Your food should be the consistency of: Regular Your liquids should be the consistency of: Regular/Thin Discharge Activity: Return to Normal Activity Allergies/Adverse Reactions: Allergies Iodinated Contrast Media [CONTRASTS] Allergy (Verified 03/09/19 15:24) Swelling lidocaine [From Lidoderm] Allergy (Verified 03/09/19 15:24) Rash Medications to take at Discharge Aspirin E.C. [Ecotrin] 81 mg PO DAILY@0800 12/31/14 Fluticasone 0.05% [Flonase Nasal [place]] 2 spray NASAL QHS 12/31/14 Allopurinol [Zyloprim] 300 mg PO DAILY 03/20/16 Gabapentin [Gralise] 300 mg PO TID 05/22/16 Magnesium Oxide [Mag-Ox 400] 400 mg PO BID 05/22/16 Albuterol Inhaler [Ventolin Hfa] 1 - 2 puff INHALATION Q4H PRN PRN 07/26/16 Bupropion HCl [Bupropion HCl Sr] 300 mg PO DAILY 07/26/16 Cyclosporine [Restasis] 2 drop EACH EYE BID 07/26/16 Aripiprazole [Abilify] 10 mg PO DAILY 03/06/19 Oxycodone Myristate [Xtampza ER] 9 mg PO BID 03/06/19 Pantoprazole Sodium 40 mg PO DAILY 03/06/19 Pramipexole Di-HCl [Mirapex] 1 mg PO DAILY 03/06/19 Alendronate Sodium [Fosamax] 70 mg PO SA 03/09/19 Atorvastatin Calcium [Lipitor] 20 mg PO DAILY 03/09/19 Calcium Carbonate/Vitamin D3 [Oyster Shell 500-Vit D3 200 Tb] 1 ea PO BID 03/09/19 Carvedilol 25 mg PO BID 03/09/19 Cholecalciferol (Vitamin D3) [Vitamin D3] 1,000 unit PO DAILY 03/09/19 Citalopram [Celexa] 20 mg PO DAILY 03/09/19 Cyclobenzaprine HCl 10 mg PO BID PRN 03/09/19 Furosemide [Lasix] 40 mg PO DAILY 03/09/19 Potassium Chloride [Klor-Con M10] 20 meq PO BID 03/09/19 Trazodone HCl 100 mg PO QHS 03/09/19 Acetaminophen [Tylenol Tablet] 650 mg PO Q6H PRN PRN tablet 03/12/19 Amox/Clavulanate Tablet [Augmentin Tablet] 875 mg PO Q12H #20 tab 03/12/19 Oxycodone [Oxyir] 5 mg PO Q4H PRN PRN 3 Days #18 tablet 03/12/19 predniSONE tablet 40 mg PO DAILY@0800 #8 tab 03/12/19 The following prescriptions were given: Oxycodone [Oxyir] 5 mg PO Q4H PRN PRN 3 Days #18 tablet PRN Reason: Moderate Pain (4-6/10) Transmission Status: Sent to [facility] predniSONE tablet 40 mg PO DAILY@0800 #8 tab Transmission Status: Pending to [facility] Primary Care Physician: Surya Hickey MD [Primary Care Provider] - Test Results: Test results from this visit will be discussed in further detail at your follow- up appointment, if applicable. Please Follow Up With: [facility] When: Saturday Proposed Discharge Date: 03/12/19
[2019-03-12] MEDS: predniSONE 20 MG Tablet 40 MG PO (11:57)
--- NOTE | 2019-03-12 12:44 | DS.PCM_ITS ---
<Abdiaziz Guerrero - Last Filed: 03/12/19 12:44> Discharge Date and Diagnosis - Problem List Patient Problems: Active and Suspected Problems Cat bite involving extremity (Acute) Cellulitis (Acute) Date of Admission: 03/09/19 Date of Discharge: 03/12/19 - Primary Discharge Diagnosis Active and Suspected Problems Cat bite cellulitis right lower extremity - confirmed Pasteurella multocida Acute hypoxic respiratory insufficiency 2/2 2 noncompliance with prescribed CPAP Chronic COPD tobacco abuse with recent cessation Anxiety/depression HTN HLD CAD prior MT Hx bioprosthetic AV J LUIS Chronic back pain Super morbid obesity Gout GERD CKDIII - Secondary Discharge Diagnosis Chronic Problems Benzodiazepine dependence (Chronic) COPD (chronic obstructive pulmonary disease) case management patient (Chronic) Obstructive sleep apnea (Chronic) Anxiety (Chronic) Depression (Chronic) GERD (gastroesophageal reflux disease) (Chronic) Hyperlipidemia (Chronic) Morbid obesity (Chronic) Tobacco abuse (Chronic) Degenerative disc disease (Chronic) H/O aortic valve replacement (Chronic) HTN (hypertension) (Chronic) Opiate dependence (Chronic) Hospital Course and Treatment Consultations 03/09/19 17:31 Consult: Onc/Wound/coil cutter Routine Comment: Operations: None Procedures: None Summary of Care Provided: Hospital Course: The patient is a 63 year old F with pmhx as above who presented to the ER with c/o pain from a cat bite 3 days prior. She had been on augmentin as an outpatient. She also c/o foul smelling discharge. She followed up with her PCP and it did not look better so she was sent to the ER. She was admitted for cellulitis from cat bite. She was placed on unasyn. She was seen by wound care and a culture was obtained. This did demonstrate Pasteurella multocida. She was ready for discharge however was found lethargic with a pulse ox in the 60s-70s. She was not wearing her CPAP. She was placed on CPAP and given aerosols. She had some mild wheezing and was started on prednisone. Breathing improved however she continued to require O2. She was placed on a prednisone burst and advised to complete her augmentin course. She is ambulatory in the community and at home and is requiring up to 3lpm O2 to maintain adequate sats so she will go home with o2. She was advised to follow up with her PCP in 1-[address] Llanes, her environmental programs specialist in 2 weeks. She was strongly encouraged to continue using her CPAP every day. She also has an appointment with the wound care center within a week. This patient was seen by Abdiaziz Guerrero PA-C under the supervision of Dr. Turcios. [] Patient Problems: Active and Suspected Problems Cat bite involving extremity (Acute) Cellulitis (Acute) - Physical Exam General: Alert, Oriented x3, Cooperative HEENT: Atraumatic, PERRLA, EOMI, Normocephalic Neck: Supple, No JVD, Negative Carotid Bruits Lungs: Diminished, Wheezes Cardiovascular: Regular rate, No murmurs Abdomen: Bowel Sounds Present, Soft, Non Tender, Obese Extremities: No edema, Capillary Refill Less than 3 Seconds Skin: No rashes, No breakdown Musculoskeletal: No Tenderness to Palpation of Joints or Extremities Neurological: Cranial nerves II-XII grossly intact Psych/Mental Status: Normal Affect, Appropriate, Alert and oriented to time, place, person, mood and affect Vital Signs Temp Pulse Resp BP Pulse Ox 98.4 F 72 18 129/41 H 94 03/12/19 08:48 03/12/19 08:48 03/12/19 08:48 03/12/19 08:48 03/12/19 08:48 Oxygen Flow Rate (L/min) 3 Oxygen Delivery Method Nasal Cannula Weight: 284 lb 13.396 oz Body Mass Index (BMI) 50.4 Intake and Output for Last 24 Hours 03/10/19 03/11/19 03/12/19 23:59 23:59 23:59 Intake Total 3837.5 / 4087.5 1240.5 / 1440.5 844 / 844 Output Total 300 / 300 400 / 400 Balance 3837.5 / 3787.5 940.5 / 1140.5 444 / 444 Microbiology Past 72 Hours 03/10/19 08:00 Gram Stain - Final Wound - Leg, Right Wound Culture - Preliminary Pasteurella multocida Laboratory Tests Past 24 Hrs 03/12/19 03/12/19 05:50 05:50 WBC 5.8 RBC 3.67 L Hgb 11.3 L Hct 37.1 MCV 101.1 H MCH 30.8 MCHC 30.5 L RDW Std Deviation 52.5 H RDW Coeff of Pierre 14.0 Plt Count 149 L MPV 11.3 Sodium 140 Potassium 4.0 Chloride 104 Carbon Dioxide 31.0 Anion Gap 5 BUN 20 H Creatinine 0.98 Estim Creat Clear Calc 47.68 Est GFR (MDRD) Af Amer 74 Est GFR (MDRD) Non-Af 61 BUN/Creatinine Ratio 20.4 H Glucose 102 Calcium 8.9 Discharge Activity: Return to Normal Activity Home Medications: Medications to take at Discharge Aspirin E.C. [Ecotrin] 81 mg PO DAILY@0800 12/31/14 Fluticasone 0.05% [Flonase Nasal [place]] 2 spray NASAL QHS 12/31/14 Allopurinol [Zyloprim] 300 mg PO DAILY 03/20/16 Gabapentin [Gralise] 300 mg PO TID 05/22/16 Magnesium Oxide [Mag-Ox 400] 400 mg PO BID 05/22/16 Albuterol Inhaler [Ventolin Hfa] 1 - 2 puff INHALATION Q4H PRN PRN 07/26/16 Bupropion HCl [Bupropion HCl Sr] 300 mg PO DAILY 07/26/16 Cyclosporine [Restasis] 2 drop EACH EYE BID 07/26/16 Aripiprazole [Abilify] 10 mg PO DAILY 03/06/19 Oxycodone Myristate [Xtampza ER] 9 mg PO BID 03/06/19 Pantoprazole Sodium 40 mg PO DAILY 03/06/19 Pramipexole Di-HCl [Mirapex] 1 mg PO DAILY 03/06/19 Alendronate Sodium [Fosamax] 70 mg PO SA 03/09/19 Atorvastatin Calcium [Lipitor] 20 mg PO DAILY 03/09/19 Calcium Carbonate/Vitamin D3 [Oyster Shell 500-Vit D3 200 Tb] 1 ea PO BID 03/09/19 Carvedilol 25 mg PO BID 03/09/19 Cholecalciferol (Vitamin D3) [Vitamin D3] 1,000 unit PO DAILY 03/09/19 Citalopram [Celexa] 20 mg PO DAILY 03/09/19 Cyclobenzaprine HCl 10 mg PO BID PRN 03/09/19 Furosemide [Lasix] 40 mg PO DAILY 03/09/19 Potassium Chloride [Klor-Con M10] 20 meq PO BID 03/09/19 Trazodone HCl 100 mg PO QHS 03/09/19 Acetaminophen [Tylenol Tablet] 650 mg PO Q6H PRN PRN tab 03/12/19 Amox/Clavulanate Tablet [Augmentin Tablet] 875 mg PO Q12H #20 tab 03/12/19 Oxycodone [Oxyir] 5 mg PO Q4H PRN PRN 3 Days #18 tab 03/12/19 predniSONE tablet 40 mg PO DAILY@0800 #8 tab 03/12/19 Following Prescrptions Were Given to Patient: Oxycodone [Oxyir] 5 mg PO Q4H PRN PRN 3 Days #18 tab PRN Reason: Moderate Pain (4-6/10) Transmission Status: Received by [facility] predniSONE tablet 40 mg PO DAILY@0800 #8 tab Transmission Status: Received by [facility] Primary Care Physician: Surya Hickey MD [Primary Care Provider] - Please Follow Up With: [facility] When: Saturday Please Follow Up With: Miah Llanes DO When: 2 weeks Medical Necessity - Tobacco Use Smoking Status: Former smoker Tobacco Use: Cigarettes Meaningful Use Info Meaningful Use Diagnoses (Choose all that apply): None applicable <Sabas Turcios F - Last Filed: 03/12/19 13:41> Discharge Date and Diagnosis - Primary Discharge Diagnosis Active and Suspected Problems Cat bite involving extremity (Acute) Cellulitis (Acute) - Secondary Discharge Diagnosis Chronic Problems Benzodiazepine dependence (Chronic) COPD (chronic obstructive pulmonary disease) case management patient (Chronic) Obstructive sleep apnea (Chronic) Anxiety (Chronic) Depression (Chronic) GERD (gastroesophageal reflux disease) (Chronic) Hyperlipidemia (Chronic) Morbid obesity (Chronic) Tobacco abuse (Chronic) Degenerative disc disease (Chronic) H/O aortic valve replacement (Chronic) HTN (hypertension) (Chronic) Opiate dependence (Chronic) Hospital Course and Treatment Consultations 03/09/19 17:31 Consult: Onc/Wound/coil cutter Routine Comment: Summary of Care Provided: The patient is a 63 year old F [] - Physical Exam Vital Signs Temp Pulse Resp BP Pulse Ox 98.4 F 72 18 129/41 H 94 03/12/19 08:48 03/12/19 08:48 03/12/19 08:48 03/12/19 08:48 03/12/19 08:48 Oxygen Flow Rate (L/min) 3 Oxygen Delivery Method Nasal Cannula Weight: 284 lb 13.396 oz Body Mass Index (BMI) 50.4 Intake and Output for Last 24 Hours 03/10/19 03/11/19 03/12/19 23:59 23:59 23:59 Intake Total 3837.5 / 4087.5 1240.5 / 1440.5 844 / 844 Output Total 300 / 300 400 / 400 Balance 3837.5 / 3787.5 940.5 / 1140.5 444 / 444 Microbiology Past 72 Hours 03/10/19 08:00 Gram Stain - Final Wound - Leg, Right Wound Culture - Preliminary Pasteurella multocida Laboratory Tests Past 24 Hrs 03/12/19 03/12/19 05:50 05:50 WBC 5.8 RBC 3.67 L Hgb 11.3 L Hct 37.1 MCV 101.1 H MCH 30.8 MCHC 30.5 L RDW Std Deviation 52.5 H RDW Coeff of Pierre 14.0 Plt Count 149 L MPV 11.3 Sodium 140 Potassium 4.0 Chloride 104 Carbon Dioxide 31.0 Anion Gap 5 BUN 20 H Creatinine 0.98 Estim Creat Clear Calc 47.68 Est GFR (MDRD) Af Amer 74 Est GFR (MDRD) Non-Af 61 BUN/Creatinine Ratio 20.4 H Glucose 102 Calcium 8.9 Code Visit Addendum: Dr. Turcios I personally examined the patient and reviewed the chart. I agree with the above. 63-year-old female presenting from home after having a cat bite on her right calf. She was initially seen in the ER on Saturday and started on Augmentin that day, she presented to her primary care physician on Saturday and he thought that it looked infected and therefore sent her to the ER. She remains afebrile without leukocytosis. Her issues with lethargy in the mornings are secondary to the fact that she is refusing to use our CPAP and will not have anybody bring over her home CPAP. We will do an ambulatory pulse ox and have her discharged on oxygen. She will need to follow-up with pulmonology as an outpatient. She is having some wheezing on exam and therefore we will also discharge her on prednisone. Her wound cultures grew Pasteurella which should be treated with the augment she has at home and she was instructed to finish her previous prescription. Inpatient E&M: [id number] Disch Hosp
--- NOTE | 2019-03-12 14:03 | CASEMGMT ---
Addendum entered by Teri Ballard 03/12/19 14:05: CHRIS BANERJEE updated that patient will require home oxygen at discharge. Per patient, she would like [facility] [place] for oxygen needs, as this is who her Bipap is through. Script for home oxygen received and referral sent to [facility] [place]. CHRIS BANERJEE arranged for oxygen tank to be delivered to hospital prior to discharge. Original Note: CHRIS BANERJEE in to discuss need for HHC at discharge, list provided and patient prefers [facility]. CHRIS BANERJEE placed referral to [facility] and they are able to accept the patient. CHRIS BANERJEE updated the patient regarding HHC.
--- NOTE | 2019-03-13 13:17 | CASEMGMT ---
RN CHRISS DC PHONE CALL DC DATE: 03/12/19 DC Disposition: Home with [facility] Diagnosis on Discharge: cellulitis, cat bite LACE/STRATA: 04/23 Intro role of CM to patient via phone listed. [facility] nurse was @ home. Remainder of call deferred. Carlos HUNTN RN ACM
== END 2019-03-12 18:55 | disposition home health service (06) | DRG 580 ==
LOC: ED 16:17 → MS3 03-10 07:07
PROVIDERS: Nurse Practitioner Family; Admitting Provider Internal Medicine; Emergency Provider Emergency Medicine; Family Provider Internal Medicine; PCP Internal Medicine; Referring Provider Internal Medicine; Visit Provider Family Medicine
DX: S81.851A Open bite, right lower leg, initial encounter (principal); L03.115 Cellulitis of right lower limb; Z68.43 Body mass index [BMI] 50.0-59.9, adult; A28.0 Pasteurellosis; W55.01XA Bitten by cat, initial encounter; E66.01 Morbid (severe) obesity due to excess calories; Z91.19 Patient's noncompliance with other medical treatment and regimen; R09.02 Hypoxemia; J44.9 Chronic obstructive pulmonary disease, unspecified; R06.89 Other abnormalities of breathing; I25.10 Atherosclerotic heart disease of native coronary artery without angina pectoris; G47.33 Obstructive sleep apnea (adult) (pediatric); N18.3 Chronic kidney disease, stage 3 (moderate); I12.9 Hypertensive chronic kidney disease with stage 1 through stage 4 chronic kidney disease, or unspecified chronic kidney disease; F32.9 Major depressive disorder, single episode, unspecified; F41.9 Anxiety disorder, unspecified; E78.5 Hyperlipidemia, unspecified; K21.9 Gastro-esophageal reflux disease without esophagitis; G89.29 Other chronic pain; M54.5 Low back pain; M10.9 Gout, unspecified; Z95.3 Presence of xenogenic heart valve; I25.2 Old myocardial infarction; Z87.891 Personal history of nicotine dependence
CPT/HCPCS: 36415; 36600; 80048; 80053; 82803; 85025; 85027; 87040; 87070; 87077; 87186; 87205; 87640; 94002; 94640; 97802; 99284; J7030; J7050; A4216; J0295

== ENCOUNTER 2019-03-17 12:44 | Outpatient (RCR) | payer MEDICARE, SELFPAY ==
[2019-03-09 17:30] VITALS: BMI 50.4
[2019-03-17 13:22] VITALS: TEMP 35.9; BMI 51.2
--- NOTE | 2019-03-17 14:48 | HP.PCM_ITS ---
(1) Ulcer of right lower leg Status: Acute Current Visit: Yes Code(s): L97.919 - Non-pressure chronic ulcer of unspecified part of right lower leg with unspecified severity (2) Cat bite involving extremity Status: Acute Current Visit: Yes (3) Cellulitis Status: Acute Current Visit: Yes Code(s): L03.90 - Cellulitis, unspecified (4) COPD (chronic obstructive pulmonary disease) case management patient Status: Chronic Current Visit: Yes Code(s): NAQ0722 - (5) Obstructive sleep apnea Status: Chronic Current Visit: Yes Code(s): G47.33 - Obstructive sleep apnea (adult) (pediatric) (6) Tobacco abuse Status: Chronic Current Visit: Yes Code(s): Z72.0 - Tobacco use History of Present Illness Date of Service: 03/17/19 Chief Complaint: Cat bite right lower leg. History of Wound: Patient was bit by her cat on 03/06/19. She went to the ED and was started on Augmentin and had her Tetanus booster updated. She returned to the ED on 03/09/19 when her symptoms were worsening, increased redness, pain, drainage. They lanced the bite yarbrough in the ED and admitted her for IV antibitiotics. She was discharged home on 03/12/19 on Augmentin and was told to follow up in the Wound center today for further evaluation and treatment. She has not been doing anything to her opened wounds. She has been leaving them opened to air out. Wound culture from 03/10/19 grew Pasteurella multocida. Today she denies any fever, chills, nausea or vomiting. She states her appetite has been good. Past Medical History Past Medical History: Chronic Problems Benzodiazepine dependence (Chronic) COPD (chronic obstructive pulmonary disease) case management patient (Chronic) Obstructive sleep apnea (Chronic) Anxiety (Chronic) Depression (Chronic) GERD (gastroesophageal reflux disease) (Chronic) Hyperlipidemia (Chronic) Morbid obesity (Chronic) Tobacco abuse (Chronic) Degenerative disc disease (Chronic) H/O aortic valve replacement (Chronic) HTN (hypertension) (Chronic) Opiate dependence (Chronic) Surgical History: cholecystectomy, - - AVR, right ankle surgery x2, hysterectomy x2, tonsillectomy Allergies/Adverse Reactions: Allergies Iodinated Contrast Media [CONTRASTS] Allergy (Verified 03/09/19 15:24) Swelling lidocaine [From Lidoderm] Allergy (Verified 03/09/19 15:24) Rash Home Medications: Ambulatory Orders Medication Instructions Recorded Aspirin E.C. [Ecotrin] 81 mg PO DAILY@0800 12/31/14 Fluticasone 0.05% [Flonase Nasal 2 spray NASAL QHS 12/31/14 [place]] Allopurinol [Zyloprim] 300 mg PO DAILY 03/20/16 Gabapentin [Gralise] 300 mg PO TID 05/22/16 Magnesium Oxide [Mag-Ox 400] 400 mg PO BID 05/22/16 Albuterol Inhaler [Ventolin Hfa] 1 - 2 puff INHALATION Q4H PRN PRN 07/26/16 Bupropion HCl [Bupropion HCl Sr] 300 mg PO DAILY 07/26/16 Cyclosporine [Restasis] 2 drop EACH EYE BID 07/26/16 Aripiprazole [Abilify] 10 mg PO DAILY 03/06/19 Oxycodone Myristate [Xtampza ER] 9 mg PO BID 03/06/19 Pantoprazole Sodium 40 mg PO DAILY 03/06/19 Pramipexole Di-HCl [Mirapex] 1 mg PO DAILY 03/06/19 Alendronate Sodium [Fosamax] 70 mg PO SA 03/09/19 Atorvastatin Calcium [Lipitor] 20 mg PO DAILY 03/09/19 Calcium Carbonate/Vitamin D3 1 ea PO BID 03/09/19 [Oyster Shell 500-Vit D3 200 Tb] Carvedilol 25 mg PO BID 03/09/19 Cholecalciferol (Vitamin D3) 1,000 unit PO DAILY 03/09/19 [Vitamin D3] Citalopram [Celexa] 20 mg PO DAILY 03/09/19 Cyclobenzaprine HCl 10 mg PO BID PRN 03/09/19 Furosemide [Lasix] 40 mg PO DAILY 03/09/19 Potassium Chloride [Klor-Con M10] 20 meq PO BID 03/09/19 Trazodone HCl 100 mg PO QHS 03/09/19 Acetaminophen [Tylenol Tablet] 650 mg PO Q6H PRN PRN tab 03/12/19 Amox/Clavulanate Tablet [Augmentin 875 mg PO Q12H #20 tab 03/12/19 Tablet] predniSONE tablet 40 mg PO DAILY@0800 #8 tab 03/12/19 - Family History Maternal Diabetes, - - from aneurysm, unknown type Paternal - - Denies known paternal medical history including cardiac history. Smoking Status: Former smoker Review of Systems Constitutional: Denies: Chills, Fever, Weight Change Eyes: Denies: Pain, Vision Change HEENT: Denies: Difficulty Hearing, Difficulty Swallowing, Sinus Congestion Cardiovascular: Denies: Chest Pain, Palpitations Respiratory: Denies: Cough, Shortness of Breath Gastrointestinal: Denies: Diarrhea, Nausea, Vomiting Genitourinary: Denies: Dysuria, Hematuria Musculoskeletal: Reports: Leg Pain - right leg pain where the cat bite occured. Skin: Reports: Wounds - she has two yarbrough on her right lateral leg and two yarbrough on her right posterior leg. Neurological: Denies: Balance problems, Blurred vision, Headaches Psychiatric: Reports: Anxiety - history of anxiety and depression. She is having no issues at this time., Depression Endocrine: Denies: Heat/ Cold Intolerance, Polydipsia, Polyuria - Physical Exam Vital Signs Temp 96.6 F L 03/17/19 13:22 General: Alert, Oriented x3, Cooperative HEENT: Atraumatic Oral: Moist Mucosa Lungs: Clear to auscultation, Normal air movement Cardiovascular: Regular rate, Regular Rhythm Abdomen: Bowel Sounds Present, Soft Extremities: Capillary Refill Less than 3 Seconds, Edema - dependent edema of lower extremities, Peripheral Pulses Normal Skin: Ulcer/ Wound - two bite yarbrough (ulcers) on right lateral lower leg and two bite yarbrough on right posterior lower leg. Wound Measurements and Assessment WC - Nurse 1 - General Ulcer Measurement Start: 03/17/19 13:21 Freq: Status: Active Protocol: Activity Type Activity Date Activity User E-Sign Co-Sign Detail Recorded Client Recorded Date Recorded By Document 03/17/19 13:22 AN [id number] 03/17/19 14:16 AN 03/17/19 13:22 Wound Center Nurse 1 [Ulcer Assessment] #1 right lateral calf -Current Size (cm) - Length 3.8 -Current Size (cm) - Width 5.2 -Current Size (cm) - Depth 0.4 -Total Square Cm 19.76 -Epithelialization None Present -Tunneling No -Undermining/Tunneling No -Circular Undermining No -Classification - Thickness Full Thickness without Exposed Support Structure -Exudate Amt Medium -Exudate Type Purulent -Wound Margin Distinct, Outline Attached -Granulation Amt Medium (34-66%) -Granulation Quality Red -Slough/Fibrin Yes -Necrosis Amt Large (67-100%) -Necrotic Tissue Type Adherent Slough -Structure Exposed Fat Layer Exposed -Texture (Debbie-wound Skin Appearance) Assessed, Localized Edema -Moisture (Debbie-wound Skin Appearance Assessed ) -Color (Debbie-wound Skin Appearance) Assessed, Erythema -Temperature (Debbie-wound Skin No Abnormality Appearance) (Pt Warm) -Tenderness on Palpation (Debbie-wound Yes Skin Appearance) -Ulcer Cleansing Rinsed/ Irrigated with Saline -Foul Odor after Cleansing No [Edema Assessment] -Right Calf (cm) 51.5 -Right Ankle (cm) 22.2 -Left Calf (cm) 53.0 -Left Ankle (cm) 24.0 WC - Nurse 2 - General Ulcer CM Notes Start: 03/17/19 13:21 Freq: Status: Active Protocol: Activity Type Activity Date Activity User E-Sign Co-Sign Detail Recorded Client Recorded Date Recorded By Document 03/17/19 14:26 KAEL [id number] 03/17/19 14:32 KAEL 03/17/19 14:26 Wound Center Nurse 2 [Procedure/Treatment] 2-right posterior calf -Time 14:28 -Correct Patient Yes -Correct Side, Site, Position Yes -Correct Procedure Yes -Procedure Performed Yes -Type of Procedure Debridement -Clinical Debridement Subcutaneous -Post Debridement Size (cm) - Length 1.7 -Post Debridement Size (cm) - Width 0.8 -Post Debridement Size (cm) - Depth 0.6 -Total Square Cm 1.36 -Wound/Ulcer Outcome Not Healed -Ulcer Cleansing Rinsed/ Irrigated with Saline -Foul Odor after Cleansing No -Bioengineered Tissue No -Bleeding Controlled with Pressure -Offloading No -Treatment Response Procedure Tolerated Well #1 right lateral calf -Time 14:27 -Correct Patient Yes -Correct Side, Site, Position Yes -Correct Procedure Yes -Procedure Performed Yes -Type of Procedure Debridement -Clinical Debridement Subcutaneous -Post Debridement Size (cm) - Length 1.4 -Post Debridement Size (cm) - Width 0.6 -Post Debridement Size (cm) - Depth 0.7 -Total Square Cm 0.84 -Wound/Ulcer Outcome Not Healed -Ulcer Cleansing Rinsed/ Irrigated with Saline -Foul Odor after Cleansing No -Bioengineered Tissue No -Bleeding Controlled with Pressure -Offloading No -Treatment Response Procedure Tolerated Well [See Physician Procedure note for Specifics] Pain Scale: 0-10 Numeric [Pain] -Is Patient Pain Free? Yes Musculoskeletal: No Tenderness to Palpation of Joints or Extremities Neurological: Neuro grossly intact Psych/Mental Status: Normal Affect, Appropriate Debridement Note Post-Debridement Measurements/Treatment WC - Nurse 2 - General Ulcer CM Notes Start: 03/17/19 13:21 Freq: Status: Active Protocol: Activity Type Activity Date Activity User E-Sign Co-Sign Detail Recorded Client Recorded Date Recorded By Document 03/17/19 14:26 [id number] 03/17/19 14:32 03/17/19 14:26 Wound Center Nurse 2 2-right posterior calf -Time 14:28 -Correct Patient Yes -Correct Side, Site, Position Yes -Correct Procedure Yes -Procedure Performed Yes -Type of Procedure Debridement -Clinical Debridement Subcutaneous -Post Debridement Size (cm) - Length 1.7 -Post Debridement Size (cm) - Width 0.8 -Post Debridement Size (cm) - Depth 0.6 -Total Square Cm 1.36 -Wound/Ulcer Outcome Not Healed -Ulcer Cleansing Rinsed/ Irrigated with Saline -Foul Odor after Cleansing No -Bioengineered Tissue No -Bleeding Controlled with Pressure -Offloading No -Treatment Response Procedure Tolerated Well #1 right lateral calf -Time 14:27 -Correct Patient Yes -Correct Side, Site, Position Yes -Correct Procedure Yes -Procedure Performed Yes -Type of Procedure Debridement -Clinical Debridement Subcutaneous -Post Debridement Size (cm) - Length 1.4 -Post Debridement Size (cm) - Width 0.6 -Post Debridement Size (cm) - Depth 0.7 -Total Square Cm 0.84 -Wound/Ulcer Outcome Not Healed -Ulcer Cleansing Rinsed/ Irrigated with Saline -Foul Odor after Cleansing No -Bioengineered Tissue No -Bleeding Controlled with Pressure -Offloading No -Treatment Response Procedure Tolerated Well Pain Scale: 0-10 Numeric Is Patient Pain Free? Yes Wound debrided: right lateral lower leg cluster (two tooth yarbrough) Type of Debridement: Excisional debridement Depth: Down to and including healthy tissue, in the subcutaneous layer Percentage of wound debrided: 100 Instrument Used: 3mm curette Tissue Removed: Subcutaneous tissue and slough Severity: Fat Layer Exposed Amount of bleeding with debridement: Mild Bleeding Controlled with: Pressure, Compression and gauze Patient tolerated procedure well - Additional Wound Wound debrided: Right posterior lower leg cluster (two tooth yarbrough) Type of Debridement: Excisional debridement Depth: Down to and including healthy tissue, in the subcutaneous layer Percentage of wound debrided: 100 Instrument Used: 3mm curette Tissue Removed: Subcutaneous tissue and slough Severity: Fat Layer Exposed Amount of bleeding with debridement: Mild Bleeding Controlled with: Pressure, Compression and gauze Patient tolerated procedure: Patient tolerated procedure well Assessment/Plan Active Problems Cat bite involving extremity (Acute) Cellulitis (Acute) Ulcer of right lower leg (Acute) COPD (chronic obstructive pulmonary disease) case management patient (Chronic) Obstructive sleep apnea (Chronic) Tobacco abuse (Chronic) Assessment: 1. Ulcer right lower extremity. 2. Cat bite involving right lower leg. 3. Cellulitis- resolved. 4. COPD. 5. Tobacco abuse Plan: Patient was seen and evaluated in the Wound [facility]aling Center today. A subcutaneous debridement was preformed and the patient tolerated it well. Do to the size and depth of the bite ulcers, will use collagen hydrogel to the opened areas and cover with adaptic daily. Patient instructed that she clean the area daily with soap and water before applying the collagen hydrogel. She will will use tubigrip for compression. Encouraged her to keep legs elevated when sitting. Encouraged her to increase protein and Vitamin C in her diet. Renewed her Augmentin. Follow up in one week. Code Visit Office Visits / Consults: 50357 OV L3 Est - 25 modifier 111xxx-113xx: [id number] Adeola subq tissue 20 sq cm/<
== END 2019-03-21 23:59 ==
LOC: WC 12:44
PROVIDERS: Family Provider Internal Medicine; PCP Internal Medicine; Visit Provider Nurse Practitioner Family
DX: S81.851A Open bite, right lower leg, initial encounter (principal); W55.01XA Bitten by cat, initial encounter; G47.33 Obstructive sleep apnea (adult) (pediatric); J44.9 Chronic obstructive pulmonary disease, unspecified; K21.9 Gastro-esophageal reflux disease without esophagitis; E78.5 Hyperlipidemia, unspecified; E66.01 Morbid (severe) obesity due to excess calories; I10 Essential (primary) hypertension; F13.20 Sedative, hypnotic or anxiolytic dependence, uncomplicated; F41.9 Anxiety disorder, unspecified; F32.9 Major depressive disorder, single episode, unspecified; F11.20 Opioid dependence, uncomplicated; Z68.43 Body mass index [BMI] 50.0-59.9, adult; Z95.2 Presence of prosthetic heart valve; Z79.899 Other long term (current) drug therapy; Z79.82 Long term (current) use of aspirin; Z87.891 Personal history of nicotine dependence
CPT/HCPCS: 11042; 99213; G0463

== ENCOUNTER → 2019-04-03 08:35 | Outpatient (CLI) | payer MEDICARE, SELFPAY ==
[2019-03-17 13:22] VITALS: BMI 51.2
[2019-03-31 14:00] VITALS: BMI 51.2
--- NOTE | 2019-04-03 09:15 | MRI_ITS ---
STUDY: MRI LUMBAR SPINE WITHOUT CONTRAST REASON FOR EXAM: Female, 63 years old. The patient presents with a history of back pain, status post prior kyphoplasty. TECHNIQUE: Standardized fat and water weighted pulse sequences were obtained in the sagittal and axial planes. COMPARISON: MRI LUMBAR SPINE-February 22, 2016; X-RAY LUMBAR SPINE-March 20, 2017 FINDINGS: Vertebrae, Alignment and Curvature Vertebrae: The patient is status post kyphoplasty with cement within the anterior column of the T11 vertebra, unchanged as compared to the prior MRI examination of February 22, 2016. Alignment: Normal. Curvature: Exaggerated cervical lordosis. No scoliosis. Thoracic Cord (visualized distal) / Conus Medullaris Normal. Terminates at the inferior endplate of the T12 vertebra. Disc Space Levels N.B.: Normal level statement indicates: Normal endplates; disc height, signal and morphology; facet joints; central canal, lateral recesses, and intervertebral neuroformina. T10-11: There is disc desiccation, mild loss of the disc height, endplate irregularity with minimal posterior endplate spondylosis and annular bulging. Normal central canal and intervertebral neural foramina. T11-12: Status post kyphoplasty of T11 vertebra, unchanged as compared the prior examination of February 22, 2016. There is disc desiccation, severe loss of the disc height with anterior endplate spondylosis spur formation. There is interval development of a broad-based posterior left central disc protrusion (axial T2 series 5, image 27; sagittal T2 series 2, image 7), representing an interval change as compared the prior examination of February 22, 2016. There is minimal ventral thecal sac flattening. Normal central canal with patent intervertebral neural foramina. T12-L1: Normal. (Imaged only in the sagittal plane). L1-L2: Normal. L2-L3: There is disc desiccation with preservation of the disc height. There is no disc displacement. There is mild bilateral facet arthroses with a small synovial cyst or ganglion arising from the superior aspect of the right L2-3 facet joint (axial T2 series 5, image 19; sagittal T2 series 2, image 10). This small synovial cyst or ganglion measures approximately 3 mm in diameter with no demonstrated neural impingement. Normal central canal and intervertebral neural foramina. L3-L4: There is disc desiccation, preservation of the disc height without disc displacement. Normal central canal and intervertebral neural foramina. L4-L5: There is disc desiccation, preservation of the disc height with minimal annular bulging. There is re-demonstration of bilateral facet arthrosis with facet effusions (right greater than left). The previously demonstrated synovial cyst or ganglion arising from the anterior aspect of the left L4-5 facet joint (February 22, 2016, axial T2 series 5, image 7) is no longer present (current study axial T2 series 5, image 7). There is a normal central canal with patent intervertebral neural foramina. L5-S1: There is disc desiccation, mild loss of the disc height with a broad-based posterior central disc herniation of protrusion type (axial T2 series 5, image 3), with associated annular tear. This broad-based disc protrusion measures 3 x 18 mm (AP, transverse), and is producing ventral epidural fat effacement with minimal thecal sac flattening, but without definitive neural impingement. There is moderate bilateral facet arthrosis (right greater than left). The intervertebral neural foramina remain patent without foraminal neural impingement. Sacral Alae: Normal. Retroperitoneum and Paraspinal Structures Kidneys: Non-visualized. Aorta: There is aneurysmal dilatation of the infrarenal abdominal aorta, with enlargement as compared the prior examination of February 22, 2016. On the prior examination the aneurysm measuring approximately 3.6 cm. On the current examination the aneurysm has increased in size to 4.5 cm. The aneurysm is approximately 9 cm in length, terminating at the aortic bifurcation. Inferior Vena Cava: Normal. Lymph Nodes: None visualized. Muscles (Paraspinal): Normal. MRI/Spine Lumbar (Routine) IMPRESSION: 1. Enlarging abdominal aortic aneurysm, which on the current examination measures 4.5 cm, as compared to 3.6 cm, as measured on the examination of February 22, 2016. 2. Status post T11 kyphoplasty, unchanged as compared the prior examination of February 22, 2016 3. L2-3 facet arthrosis with a small ganglion or cyst arising from the superior aspect of the right L2-3 facet joint, without neural impingement. 4. L4-5 facet arthrosis with facet effusions however the previously demonstrated synovial cyst or ganglion arising from the anterior aspect of the left L4-5 facet is no longer present. 5. L5-S1 interval development of a posterior central disc herniation of protrusion type with an annular tear, but without neural impingement.. Electronically Signed: Ousmane Fraire DO at 12:27 EDT Tel , Service support ,
== END ==
PROVIDERS: Family Provider Internal Medicine; PCP Internal Medicine; Referring Provider Anesthesiology Pain Medicine; Visit Provider Anesthesiology Pain Medicine
DX: M54.9 Dorsalgia, unspecified (principal); M79.606 Pain in leg, unspecified
CPT/HCPCS: 72148

== ENCOUNTER 2019-04-07 14:00 | Outpatient (RCR) | payer MEDICARE, SELFPAY ==
[2019-03-22 01:16] VITALS: TEMP 35.9
[2019-03-31 14:00] VITALS: BP 144/71; PULSE 68; RESP 18; TEMP 35.9; BMI 51.2
--- NOTE | 2019-03-31 14:34 | PCM.WC.PN ---
(1) Ulcer of right lower leg Status: Chronic Code(s): L97.919 - Non-pressure chronic ulcer of unspecified part of right lower leg with unspecified severity (2) Cat bite involving extremity Status: Chronic Type of Wound Date of Service: 03/31/19 Chief Complaint: Cat bite right lower leg. History of Wound: Patient was bit by her cat on 03/06/19. She went to the ED and was started on Augmentin and had her Tetanus booster updated. She returned to the ED on 03/09/19 when her symptoms were worsening, increased redness, pain, drainage. They lanced the bite yarbrough in the ED and admitted her for IV antibitiotics. She was discharged home on 03/12/19 on Augmentin and was told to follow up in the Wound center today for further evaluation and treatment. She has not been doing anything to her opened wounds. She has been leaving them opened to air out. Wound culture from 03/10/19 grew Pasteurella multocida.Wound care is collagen hydrogel. Today she denies any fever, chills, nausea or vomiting. She states her appetite has been good. Progress of Wound: Right lateral leg is healed. Right posterior leg improved. - Physical Exam Vital Signs Temp Pulse Resp BP 96.6 F L 68 18 144/71 H 03/31/19 14:00 03/31/19 14:00 03/31/19 14:00 03/31/19 14:00 General: Alert, Oriented x3 HEENT: Atraumatic Oral: Moist Mucosa Lungs: Normal air movement Cardiovascular: Regular rate Abdomen: Soft Extremities: Capillary Refill Less than 3 Seconds, Edema, Peripheral Pulses Normal Skin: Ulcer/ Wound - right posterior lower leg Wound Measurements and Assessment WC - Nurse 1 - General Ulcer Measurement Start: 03/27/19 07:51 Freq: Status: Active Protocol: Activity Type Activity Date Activity User E-Sign Co-Sign Detail Recorded Client Recorded Date Recorded By Document 03/31/19 14:00 [id number] 03/31/19 14:12 03/31/19 14:00 Wound Center Nurse 1 [Ulcer Assessment] 2-right posterior calf -Combined with other wound No -Current Size (cm) - Length 0.4 -Current Size (cm) - Width 0.2 -Current Size (cm) - Depth 0.1 -Total Square Cm 0.08 -Photo Taken No -Epithelialization Medium 34-66% -Tunneling No -Undermining/Tunneling No -Circular Undermining No -Exudate Amt None Present -Wound Margin Distinct, Outline Attached -Necrosis Amt None Present (0 %) -Structure Exposed None/Limited to Skin Breakdown -Texture (Debbie-wound Skin Appearance) No Abnormality, Assessed -Moisture (Debbie-wound Skin Appearance No Abnormality, ) Assessed -Color (Debbie-wound Skin Appearance) No Abnormality, Assessed, Ecchymosis -Temperature (Debbie-wound Skin No Abnormality Appearance) (Pt Warm) -Tenderness on Palpation (Debbie-wound Yes Skin Appearance) -Ulcer Cleansing Wound Cleanser -Foul Odor after Cleansing No #1 right lateral calf -Combined with other wound No -Current Size (cm) - Length 0 -Current Size (cm) - Width 0 -Current Size (cm) - Depth 0 -Total Square Cm 0 -Date of Last Picture (Recall this 03/31/19 field) -Photo Taken Yes -Epithelialization Large 67-100% -Tunneling No -Undermining/Tunneling No -Circular Undermining No -Change in Wound Grade/Stage Yes Query Text:If change please identify the Stage/Grade in the comment (ie. S2 G3) -Exudate Amt None Present -Wound Margin Distinct, Outline Attached -Granulation Amt Large (67-100%) -Granulation Quality Red -Slough/Fibrin No -Necrosis Amt None Present (0 %) -Structure Exposed None/Limited to Skin Breakdown -Texture (Debbie-wound Skin Appearance) No Abnormality, Assessed -Moisture (Debbie-wound Skin Appearance No Abnormality, ) Assessed -Color (Debbie-wound Skin Appearance) Assessed, Erythema -Temperature (Debbie-wound Skin No Abnormality Appearance) (Pt Warm) -Tenderness on Palpation (Debbie-wound No Skin Appearance) -Foul Odor after Cleansing No [Edema Assessment] -Lower Limb Edema Present No WC - Nurse 2 - General Ulcer CM Notes Start: 03/27/19 07:51 Freq: Status: Active Protocol: Activity Type Activity Date Activity User E-Sign Co-Sign Detail Recorded Client Recorded Date Recorded By Document 03/31/19 14:20 [email or web address] [id number] 03/31/19 14:24 KAEL 03/31/19 14:20 Wound Center Nurse 2 [Procedure/Treatment] 2-right posterior calf -Time 14:21 -Correct Patient Yes -Correct Side, Site, Position Yes -Correct Procedure Yes -Procedure Performed Yes -Type of Procedure Debridement -Clinical Debridement Subcutaneous -Post Debridement Size (cm) - Length 0.3 -Post Debridement Size (cm) - Width 0.6 -Post Debridement Size (cm) - Depth 0.2 -Total Square Cm 0.18 -Wound/Ulcer Outcome Not Healed -Ulcer Cleansing Rinsed/ Irrigated with Saline -Foul Odor after Cleansing No -Bioengineered Tissue No -Bleeding Controlled with Pressure -Offloading No -Treatment Response Procedure Tolerated Well #1 right lateral calf -Time 14:22 -Correct Patient No -Correct Side, Site, Position No -Correct Procedure No -Procedure Performed No -Post Debridement Size (cm) - Length 0 -Post Debridement Size (cm) - Width 0 -Post Debridement Size (cm) - Depth 0 -Total Square Cm 0 -Wound/Ulcer Outcome Healed- Epithelialized -Ulcer Cleansing Rinsed/ Irrigated with Saline -Foul Odor after Cleansing No -Bioengineered Tissue No -Bleeding Controlled with Pressure -Offloading No -Treatment Response Procedure Tolerated Well [See Physician Procedure note for Specifics] Pain Scale: 0-10 Numeric [Pain] -Is Patient Pain Free? Yes Musculoskeletal: No Tenderness to Palpation of Joints or Extremities Neurological: Neuro grossly intact Psych/Mental Status: Normal Affect, Appropriate Debridement Note Post-Debridement Measurements/Treatment WC - Nurse 2 - General Ulcer CM Notes Start: 03/27/19 07:51 Freq: Status: Active Protocol: Activity Type Activity Date Activity User E-Sign Co-Sign Detail Recorded Client Recorded Date Recorded By Document 03/31/19 14:20 [id number] 03/31/19 14:24 03/31/19 14:20 Wound Center Nurse 2 2-right posterior calf -Time 14:21 -Correct Patient Yes -Correct Side, Site, Position Yes -Correct Procedure Yes -Procedure Performed Yes -Type of Procedure Debridement -Clinical Debridement Subcutaneous -Post Debridement Size (cm) - Length 0.3 -Post Debridement Size (cm) - Width 0.6 -Post Debridement Size (cm) - Depth 0.2 -Total Square Cm 0.18 -Wound/Ulcer Outcome Not Healed -Ulcer Cleansing Rinsed/ Irrigated with Saline -Foul Odor after Cleansing No -Bioengineered Tissue No -Bleeding Controlled with Pressure -Offloading No -Treatment Response Procedure Tolerated Well #1 right lateral calf -Time 14:22 -Correct Patient No -Correct Side, Site, Position No -Correct Procedure No -Procedure Performed No -Post Debridement Size (cm) - Length 0 -Post Debridement Size (cm) - Width 0 -Post Debridement Size (cm) - Depth 0 -Total Square Cm 0 -Wound/Ulcer Outcome Healed- Epithelialized -Ulcer Cleansing Rinsed/ Irrigated with Saline -Foul Odor after Cleansing No -Bioengineered Tissue No -Bleeding Controlled with Pressure -Offloading No -Treatment Response Procedure Tolerated Well Pain Scale: 0-10 Numeric Is Patient Pain Free? Yes Wound debrided: Right posterior lower leg Laterality: Right Type of Debridement: Excisional debridement Anesthesia Used: 5% Lidocaine Gel Depth: Down to and including healthy tissue, in the subcutaneous layer Percentage of wound debrided: 100 Instrument Used: 7mm curette Tissue Removed: Subcutaneous tissues Severity: Fat Layer Exposed Amount of bleeding with debridement: Mild Bleeding Controlled with: Pressure Patient tolerated procedure well Assessment/Plan Assessment: 1. Ulcer right lower extremity. 2. Cat bite involving right lower leg. 3. Cellulitis- resolved. 4. COPD. 5. Tobacco abuse Plan: Patient was seen and evaluated in the Wound Healing Center today. A subcutaneous debridement was preformed and the patient tolerated it well. Do to the size and depth of the bite ulcers, will continue use collagen hydrogel to the opened areas and cover with adaptic daily to right posterior lower leg. Right lateral lower leg ulcer is healed. Patient instructed that she clean the area daily with soap and water before applying the collagen hydrogel. She will will use tubigrip for compression. Encouraged her to keep legs elevated when sitting. Encouraged her to increase protein and Vitamin C in her diet.Completed Augmentin. Follow up in one week. Code Visit 111xxx-113xx: [id number] Adeola subq tissue 20 sq cm/<
[2019-04-07 14:16] VITALS: BP 122/46; PULSE 71; RESP 16; TEMP 35.4; BMI 51.2
--- NOTE | 2019-04-07 15:40 | PCM.WC.PN ---
(1) Ulcer of right lower leg Status: Chronic Code(s): L97.919 - Non-pressure chronic ulcer of unspecified part of right lower leg with unspecified severity (2) Cat bite involving extremity Status: Chronic Type of Wound Date of Service: 04/07/19 Chief Complaint: Cat bite right lower leg. History of Wound: Patient was bit by her cat on 03/06/19. She went to the ED and was started on Augmentin and had her Tetanus booster updated. She returned to the ED on 03/09/19 when her symptoms were worsening, increased redness, pain, drainage. They lanced the bite yarbrough in the ED and admitted her for IV antibitiotics. She was discharged home on 03/12/19 on Augmentin and was told to follow up in the Wound center today for further evaluation and treatment. Wound culture from 03/10/19 grew Pasteurella multocida. Both ulcers are healed today. Progress of Wound: Right lateral leg is healed. Right posterior leg is healed. - Physical Exam Vital Signs Temp Pulse Resp BP 95.7 F L 71 16 122/46 H 04/07/19 14:16 04/07/19 14:16 04/07/19 14:16 04/07/19 14:16 General: Alert, Oriented x3, Cooperative HEENT: Atraumatic Oral: Moist Mucosa Lungs: Normal air movement Cardiovascular: Regular rate Extremities: Capillary Refill Less than 3 Seconds, Peripheral Pulses Normal Skin: Ulcer/ Wound - healed today Wound Measurements and Assessment WC - Nurse 1 - General Ulcer Measurement Start: 03/27/19 07:51 Freq: Status: Active Protocol: Activity Type Activity Date Activity User E-Sign Co-Sign Detail Recorded Client Recorded Date Recorded By Document 04/07/19 14:[address] [facility] [id number] 04/07/19 14:[address] [facility] 04/07/19 14:16 Wound Center Nurse 1 [Ulcer Assessment] 2-right posterior calf -Combined with other wound No -Current Size (cm) - Length 0.1 -Current Size (cm) - Width 0.1 -Current Size (cm) - Depth 0.1 -Total Square Cm 0.01 -Epithelialization Large 67-100% -Texture (Debbie-wound Skin Appearance) Assessed, Scarring -Moisture (Debbie-wound Skin Appearance Assessed,Dry/ ) Scaly -Color (Debbie-wound Skin Appearance) Assessed -Temperature (Debbie-wound Skin No Abnormality Appearance) (Pt Warm) -Tenderness on Palpation (Debbie-wound No Skin Appearance) -Ulcer Cleansing Rinsed/ Irrigated with Saline -Foul Odor after Cleansing No -Anesthetic Used 5% Lidocaine Gel [Edema Assessment] -Lower Limb Edema Present Yes -Right Calf (cm) 49.6 -Right Ankle (cm) 25.7 - Nurse 2 - General Ulcer CM Notes Start: 03/27/19 07:51 Freq: Status: Active Protocol: Activity Type Activity Date Activity User E-Sign Co-Sign Detail Recorded Client Recorded Date Recorded By Document 04/07/19 14:34 [id number] 04/07/19 14:38 04/07/19 14:34 Wound Center Nurse 2 [Procedure/Treatment] 2-right posterior calf -Correct Patient No -Correct Side, Site, Position No -Correct Procedure No -Procedure Performed No -Post Debridement Size (cm) - Length 0 -Post Debridement Size (cm) - Width 0 -Post Debridement Size (cm) - Depth 0 -Total Square Cm 0 -Wound/Ulcer Outcome Healed- Epithelialized [See Physician Procedure note for Specifics] Pain Scale: 0-10 Numeric [Pain] -Is Patient Pain Free? Yes Musculoskeletal: No Tenderness to Palpation of Joints or Extremities Neurological: Neuro grossly intact Psych/Mental Status: Normal Affect, Appropriate Debridement Note Post-Debridement Measurements/Treatment - Nurse 2 - General Ulcer CM Notes Start: 03/27/19 07:51 Freq: Status: Active Protocol: Activity Type Activity Date Activity User E-Sign Co-Sign Detail Recorded Client Recorded Date Recorded By Document 03/31/19 14:20 [id number] 03/31/19 14:24 Document 04/07/19 14:34 [id number] 04/07/19 14:38 03/31/19 04/07/19 14:20 14:34 Wound Center Nurse 2 2-right posterior calf -Time 14:21 -Correct Patient Yes No -Correct Side, Site, Position Yes No -Correct Procedure Yes No -Procedure Performed Yes No -Type of Procedure Debridement -Clinical Debridement Subcutaneous -Post Debridement Size (cm) - Length 0.3 0 -Post Debridement Size (cm) - Width 0.6 0 -Post Debridement Size (cm) - Depth 0.2 0 -Total Square Cm 0.18 0 -Wound/Ulcer Outcome Not Healed Healed- Epithelialized -Ulcer Cleansing Rinsed/ Irrigated with Saline -Foul Odor after Cleansing No -Bioengineered Tissue No -Bleeding Controlled with Pressure -Offloading No -Treatment Response Procedure Tolerated Well #1 right lateral calf -Time 14:22 -Correct Patient No -Correct Side, Site, Position No -Correct Procedure No -Procedure Performed No -Post Debridement Size (cm) - Length 0 -Post Debridement Size (cm) - Width 0 -Post Debridement Size (cm) - Depth 0 -Total Square Cm 0 -Wound/Ulcer Outcome Healed- Epithelialized -Ulcer Cleansing Rinsed/ Irrigated with Saline -Foul Odor after Cleansing No -Bioengineered Tissue No -Bleeding Controlled with Pressure -Offloading No -Treatment Response Procedure Tolerated Well Pain Scale: 0-10 Numeric Is Patient Pain Free? Yes Yes No debridement was completed today Assessment/Plan Assessment: 1. Ulcer right lower extremity. 2. Cat bite involving right lower leg. 3. Cellulitis- resolved. 4. COPD. 5. Tobacco abuse Plan: Patient was seen and evaluated in the [facility] today. Right posterior calf ulcer is healed today. Right lateral lower leg ulcer remains healed. Encouraged her to massage the areas daily with lotion to help soften scarring. Discharged today from the wound center. Code Visit Office Visits / Consults: [id number] OV L3 Est
== END 2019-04-20 23:59 ==
LOC: WC 14:00
PROVIDERS: Family Provider Internal Medicine; PCP Internal Medicine; Visit Provider Nurse Practitioner Family
DX: S81.851A Open bite, right lower leg, initial encounter (principal); W55.01XA Bitten by cat, initial encounter; J44.9 Chronic obstructive pulmonary disease, unspecified; Z72.0 Tobacco use; M79.661 Pain in right lower leg
CPT/HCPCS: 11042; 99213; G0463

== ENCOUNTER → 2019-05-08 12:32 | Outpatient (CLI) | payer MEDICARE, SELFPAY ==
[2019-04-08 08:24] VITALS: BMI 53.7
--- NOTE | 2019-05-08 14:14 | PFTCOMP ---
COMPLETE PULMONARY FUNCTION TEST INTERPRETATION Brief HPI: Patient is a 64 year old female, currently under the care of Dr. Llanes, who presents to [facility] for complete pulmonary function tests secondary to diagnosis of dyspnea. Respiratory therapist reports good effort and reproducible results. Interpretation: Forced expiration spirometry shows no large airways obstructive ventilatory defect with an FEV1 of 86% predicted. There is no significant bronchodilator response by strict ATS criteria. Spirograms are of good quality and plateau normally. The respiratory flow volume loop shows decreased expiratory flow rates at high lung volumes consistent with small airways obstruction. Lung volumes by body plethysmography show a normal total lung capacity at 4.18 L, 93% predicted. All other lung volumes are within normal limits. Diffusion capacity by carbon monoxide is decreased at 50% predicted. The airway resistance is normal. Compared to previous pulmonary function tests from 12/14/2016, there is been significant improvement in spirometric values. Impression: Isolated defect in diffusion capacity consistent with a pulmonary vascular disorder. There has been improvement in spirometric values compared to previous.
== END ==
PROVIDERS: Family Provider Internal Medicine; PCP Internal Medicine; Referring Provider Internal Medicine Critical Care Medicine; Visit Provider Internal Medicine Critical Care Medicine
DX: R06.09 Other forms of dyspnea (principal); F17.211 Nicotine dependence, cigarettes, in remission
CPT/HCPCS: 94060; 94726; 94729

== ENCOUNTER 2019-05-13 09:44 | Inpatient (IN) | payer MEDICARE, SELFPAY ==
[2019-04-08 08:24] VITALS: BMI 53.7
[2019-05-13] VITALS (62 sets, daily range): BP systolic 68–129; BP diastolic 38–107; PULSE 103–185; RESP 12–40; TEMP 36.1–39.6; O2SAT 84–100; BMI 46.6; BMI 45.2
[2019-05-13] MEDS: Etomidate 20 MG/10 ML Vial IV (09:53)
[2019-05-13] MEDS: Rocuronium Bromide 50 MG/5 ML Vial IV (09:54)
--- NOTE | 2019-05-13 09:57 | EKG12_ITS ---
Test Reason : Blood Pressure : / mmHG Vent. Rate : 168 BPM Atrial Rate : 156 BPM P-R Int : 000 ms QRS Dur : 096 ms QT Int : 252 ms P-R-T Axes : 000 -09 106 degrees QTc Int : 421 ms Atrial fibrillation with rapid ventricular response with premature ventricular or aberrantly conducte d complexes Abnormal QRS-T angle, consider primary T wave abnormality Abnormal ECG Confirmed by AMINA CHAN, MAG ([id number]), international editorial producer FINN HADDAD ([id number]) on 05/15/2019 1:16:08 PM Referred By: Trupti Bagley Confirmed By:CAROLA HUYNH MD
--- NOTE | 2019-05-13 09:57 | RAD_ITS ---
STUDY: X-RAY CHEST REASON FOR EXAM: Female, 64 years old. Unresponsive. Endotracheal tube placement. TECHNIQUE: Single AP portable view of the chest. COMPARISON: Comparison is made with prior examination done earlier today at 10:10 AM. FINDINGS: The tip of the endotracheal tube is at 3.7 cm proximal to the morena. An orogastric tube is seen with the tip in the body of the stomach. Pleural-parenchymal changes are seen at the left lung base. Sternal cerclage wires are present from a prior sternotomy. Mild cardiomegaly. Normal mediastinum and juan a. Normal visualized pulmonary arteries. Normal visualized aortic arch and descending thoracic aorta. Prior vertebroplasty of the T12 vertebrae. Normal visualized ribs, clavicles, and shoulders. Prior cholecystectomy. RAD/Chest 1 View (Portable) IMPRESSION: The tip of the endotracheal tube is at 3.7 cm proximal to the morena. Electronically Signed: Jose Longo, at 10:51 EDT , Service support ,
--- NOTE | 2019-05-13 09:58 | CT_ITS ---
STUDY: CT BRAIN WITHOUT CONTRAST REASON FOR EXAM: Female, 64 years old. Altered mental status. Patient was found unresponsive. RADIATION DOSAGE (If Supplied By Facility): CTDIvol = ( 44.99 ) mGy, DLP = ( 779.24 ) mGycm TECHNIQUE: Transaxial CT imaging of the brain was performed without administration of intravenous contrast material. Individualized dose optimization techniques were used for this CT. COMPARISON: Comparison is made with prior examination dated August 09, 2016. FINDINGS: Normal soft tissue structures. Normal calvarium. There is mild cerebral atrophy with widening of the extra-axial spaces and ventricular dilatation. Normal white matter tracts of the cerebral hemispheres. Normal basal ganglia and thalami. Normal brainstem. Normal cerebellum. There is no intracranial hemorrhage. There are no findings of an acute ischemic infarction. Normal visualized paranasal sinuses. CT/Brain/Head without Contrast IMPRESSION: Chronic involutional changes of the brain. Electronically Signed: Jose Longo, at 11:18 EDT , Service support ,
--- NOTE | 2019-05-13 09:59 | RAD_ITS ---
STUDY: X-RAY CHEST REASON FOR EXAM: Female, 64 years old. The patient is unresponsive. TECHNIQUE: Single AP portable view of the chest. COMPARISON: Comparison is made with prior study dated August 09, 2016. FINDINGS: An endotracheal tube is in situ. The tip is at the origin of the right mainstem bronchus. It should be pulled back approximately 3 cm. An orogastric tube is seen with the tip in the body of the stomach. Pleural-parenchymal changes at the left lung base. The right lung is clear. Sternal cerclage wires are present from a prior sternotomy. Prior mitral valve replacement. Normal mediastinum and juan a. Normal visualized pulmonary arteries. Normal visualized aortic arch and descending thoracic aorta. Vertebroplasty of the T12 vertebrae. Normal visualized ribs, clavicles, and shoulders. There is no demonstrated abnormality of the visualized soft tissue structures of the upper abdomen. RAD/Chest 1 View (Portable) IMPRESSION: The tip of the endotracheal tube is at the origin of the right mainstem bronchus. It should be withdrawn approximately 3 cm. Electronically Signed: Jose Longo, at 10:51 EDT , Service support ,
--- NOTE | 2019-05-13 10:00 | ED.DCSUM_ITS ---
History of Present Illness Chief Complaint: Neuro S/Sx Informant: [employer] Pro[employer] Narrative: Patient was found unresponsive and incontinent of urine by a friend who called 911, EMS states she has been unresponsive, appeared to have possibly fallen out of bed as she was found next to her own bed. She lives alone. History is extremely limited, we do not know when she was last seen by anyone normal. Medical history is extremely limited. EMS identified her by a piece of mail. Past medical history as noted below was obtained from the EMR. - Past Medical History (1) Anxiety Status: Chronic (2) Benzodiazepine dependence Status: Chronic (3) COPD (chronic obstructive pulmonary disease) case management patient Status: Chronic (4) Degenerative disc disease Status: Chronic (5) Depression Status: Chronic (6) GERD (gastroesophageal reflux disease) Status: Chronic (7) H/O aortic valve replacement Status: Chronic (8) HTN (hypertension) Status: Chronic (9) Hyperlipidemia Status: Chronic (10) Morbid obesity Status: Chronic (11) Obstructive sleep apnea Status: Chronic (12) Opiate dependence Status: Chronic Past Medical History - Allergies and Home Meds Allergies/Adverse Reactions: Allergies Iodinated Contrast Media [CONTRASTS] Allergy (Verified 04/08/19 09:57) Swelling lidocaine [From Lidoderm] Allergy (Verified 04/08/19 09:57) Rash Primary Care Physician: Surya Hickey MD [Primary Care Provider] - Surgical History: cholecystectomy, - - AVR, right ankle surgery x2, hysterectomy x2, tonsillectomy Lives: Alone Smoking Status: Former smoker - Family History Maternal Family History: Family History (Last Updated 04/08/19 @ 12:57 by Miah Llanes DO) Mother Hypertension Heart disease Diabetes CVA (cerebral vascular accident) Family History: Reports: Diabetes, - - from aneurysm, unknown type Paternal Family History: Family History (Last Updated 04/08/19 @ 12:57 by Miah Llanes DO) Mother Hypertension Heart disease Diabetes CVA (cerebral vascular accident) Family History: Reports: - - Denies known paternal medical history including cardiac history. Review of Systems ROS: Unable to Obtain STROKE Inital Vital Signs reviewed: Yes - NIHSS Initial 1a Level of Consciousness: 2 1b LOC Questions (Score 2 if aphasic/stupor): 2 1c LOC Commands (Only score 1st attempt): 2 2 Best Gaze (If aphasic, use reflexive mvmts.): 0 3 Visual: 0 4 Facial Palsy: 0 5 Motor Arm Right (UN = amputation/fusion): 4 5 Motor Arm Left: 4 6 Motor Leg Right: 4 6 Motor Leg Left: 4 7 Limb ataxia (Only + if out of proportion): UN 8 Sensory (Aphasia/stupor=0 or 1, coma=2): 2 9 Best Language: 3 10 Dysarthria (mute, coma=2, intubated=UN): 2 11 Extinction and Inattention (only scored if +): 0 Total Score: 29 General: Well nourished, Well developed, Obese - morbidly Head: Normocephalic, Atraumatic Eyes: Perrl - 2-3mm, - - No forced deviation. Attempts to look at the examiner but does not speak. ENT: No rhinorrhea, Dry mucous membranes Neck: Supple, Nontender Cardiovascular: No murmurs, Irregular, Tachycardia Respiratory: - - poor respiratory effort; equal BS bilat, trachea midline, lungs clear anteriorly Abdomen: Soft, Nondistended, Normal bowel sounds Extremities: - - flaccid x 4 Skin: No Trauma, Pallor. Negative for: Jaundice Neurological: Stupor, - - GCS: E-4, M-1, V-1 = 6. Patient does have positive Babinski bilaterally. There is no movement with painful stimulation in her extremities are flaccid. - Medical Decision Making Alterplase Inclusion / Exclusion Criteria: Alteplase Inclusion / Exclusion Criteria * Diagnosis of ischemic stroke causing measurable neurological deficit * Computed tomography(CT) rules out hemorrhage or non-stroke cause of deficit * 18 years or older * Time to treatment less than 3 hours of confirmed time Last Known Well or 4.5 hours with additional warning Contraindications Warnings / Use of Clinical Judgment * Current intracranial hemorrhage * Sever head trauma within 3 months * Signs and Symptoms most consistent with subarachnoid hemorrhage * Coagulopathy: * Platelets < 100,000/mm3 * INR >1.7 * PTT greater than 40 seconds * PT greater than 15 seconds * Warfarin use with INR >1.7 * Treatment dose of low molecular weight Heparin with in the Previous 24 hours * Direct Thrombin inhibitors or direct Factor Xa inhibitors if taken within 48 hours * Symptoms consistent with infective endocarditis * Known or suspected aortic arch dissection * Sustained undontrolled BP > or = 185/110 * Extnsive regions of clear hypoattenuateion on initial CT * History of ischemic stroke within 3 months * History of intracranial/spinal surgery within 3 months * Structural GI malignancy of GI bleeding within 21 days * Intraaxial/Intracranial neoplasm * Clinical history of potential bleeding diatheses or coagulopathy * Lumbar dural puncture in the preceding 7 days * Arterial puncture of non-compressible vessel within 7 days * major trauma, not involving the head, within 14 days * Major surgery in the preceding 14 days * History of gastrointestinal or genitourinary hemorrage * intraranial arterial dissection * Unruptured/unsecured aneurysm > 10 mm * Unruptured and untreated intracranial vascular malformation * Higher burden of cerebral microbleeds (greater than 10) on MRI * History of recent GA involving left anterior myocardium in the past 3 months * Acute pericarditis * Left atrial or left ventricular thrombus * Cardiac myxoma or papilliary fibroelastoma * * Hemorrhagic ophthalmic conditions Additional Warning for 3-4.5 hour window Alteplase 3-hour window contraindications and warnings continue to apply Relative Exclusion Criteria * Age > 80 * Sever stroke NIHSS > 25 * Taking oral anticoagulants regard less of INR * History of both diabetes and stroke * Imaging evidence of Ischemic injury involving more than 1/3 if MCA territory Diagnostic/Tx/Re-eval Impressions Brain CT 05/13/19 09:58 IMPRESSION: Chronic involutional changes of the brain. Electronically Signed: Jose Longo, at 11:18 EDT , Service support , Chest X-Ray 05/13/19 09:59 IMPRESSION: The tip of the endotracheal tube is at the origin of the right mainstem bronchus. It should be withdrawn approximately 3 cm. Electronically Signed: Jose Longo, at 10:51 EDT , Service support , 05/13/19 09:57 Chest 1 View (Portable) [RAD] Stat 05/13/19 09:58 CT Brain [Brain/Head without Contrast] [CT] Stat 05/13/19 09:59 Chest 1 View (Portable) [RAD] Stat Laboratory Results 05/13/19 05/13/19 05/13/19 10:16 10:49 10:49 WBC RBC Hgb Hct MCV MCH MCHC RDW Std Deviation RDW Coeff of Pierre Plt Count MPV Immature Gran % (Auto) Neut % (Auto) Lymph % (Auto) [place] % (Auto) Eos % (Auto) Baso % (Auto) Absolute Neuts (auto) Absolute Lymphs (auto) Nucleated RBC % Differential Comment Diff Path Review PT INR APTT Specimen Type ART Sample Site R Brachial pH 7.25 L Bicarbonate Actual 16.4 L POC Total CO2 18 Base Excess -11 L O2 Saturation 97 O2 % 70 ABG pCO2 37.8 ABG pO2 101 H Gennaro Test NA Respiration Rate 12 O2 Delivery Device Vent Minute Volume 5.00 Vent Mode A-C Tidal Volume 450 POC PEEP 5 Blood Gas Notified Whom ED Blood Gas Notified Time 1020 Lactic Acid Urine Color Yellow Urine Clarity Cloudy Urine pH 6.0 Ur Specific [place] 1.015 Urine Protein 30 H Urine Glucose (UA) Normal Urine Ketones 5 H Urine Occult Blood 250 H Urine Nitrite Negative Urine Bilirubin 1 H Urine Urobilinogen 8 H Ur Leukocyte Esterase 25 H Urine RBC 0 SEEN Urine WBC 0-5 SEEN Ur Squamous Epith Cells 0 SEEN Urine Bacteria 0 SEEN Urine Mucus 0 SEEN Urine Opiates Screen NEGATIVE Urine Methadone Screen NEGATIVE Ur Barbiturates Screen NEGATIVE Ur Phencyclidine Scrn NEGATIVE Ur Amphetamines Screen NEGATIVE U Methamphetamin-MDMA POSITIVE H U Benzodiazepines Scrn NEGATIVE Urine Cocaine Screen NEGATIVE U Cannabinoids Screen NEGATIVE Ur Drug Screen Comment Ethyl Alcohol 05/13/19 05/13/19 05/13/19 11:40 12:15 12:15 WBC 14.5 H RBC 4.34 Hgb 13.3 Hct 40.7 MCV 93.8 MCH 30.6 MCHC 32.7 RDW Std Deviation 57.0 H RDW Coeff of Pierre 16.3 H Plt Count 20 L* MPV TNP Immature Gran % (Auto) 2.100 H Neut % (Auto) 87.5 H Lymph % (Auto) 3.9 L [place] % (Auto) 5.4 Eos % (Auto) 1.0 Baso % (Auto) 0.1 Absolute Neuts (auto) 12.7 H Absolute Lymphs (auto) 0.56 L Nucleated RBC % 0.3 Differential Comment Diff Path Review May foll PT 15.4 H INR 1.2 APTT 27.8 Specimen Type Sample Site pH Bicarbonate Actual POC Total CO2 Base Excess O2 Saturation O2 % ABG pCO2 ABG pO2 Gennaro Test Respiration Rate O2 Delivery Device Minute Volume Vent Mode Tidal Volume POC PEEP Blood Gas Notified Whom Blood Gas Notified Time Lactic Acid 2.7 H Urine Color Urine Clarity Urine pH Ur Specific [place] Urine Protein Urine Glucose (UA) Urine Ketones Urine Occult Blood Urine Nitrite Urine Bilirubin Urine Urobilinogen Ur Leukocyte Esterase Urine RBC Urine WBC Ur Squamous Epith Cells Urine Bacteria Urine Mucus Urine Opiates Screen Urine Methadone Screen Ur Barbiturates Screen Ur Phencyclidine Scrn Ur Amphetamines Screen U Methamphetamin-MDMA U Benzodiazepines Scrn Urine Cocaine Screen U Cannabinoids Screen Ur Drug Screen Comment Ethyl Alcohol 05/13/19 12:15 WBC RBC Hgb Hct MCV MCH MCHC RDW Std Deviation RDW Coeff of Pierre Plt Count MPV Immature Gran % (Auto) Neut % (Auto) Lymph % (Auto) [place] % (Auto) Eos % (Auto) Baso % (Auto) Absolute Neuts (auto) Absolute Lymphs (auto) Nucleated RBC % Differential Comment Diff Path Review PT INR APTT Specimen Type Sample Site pH Bicarbonate Actual POC Total CO2 Base Excess O2 Saturation O2 % ABG pCO2 ABG pO2 Gennaro Test Respiration Rate O2 Delivery Device Minute Volume Vent Mode Tidal Volume POC PEEP Blood Gas Notified Whom Blood Gas Notified Time Lactic Acid Urine Color Urine Clarity Urine pH Ur Specific [place] Urine Protein Urine Glucose (UA) Urine Ketones Urine Occult Blood Urine Nitrite Urine Bilirubin Urine Urobilinogen Ur Leukocyte Esterase Urine RBC Urine WBC Ur Squamous Epith Cells Urine Bacteria Urine Mucus Urine Opiates Screen Urine Methadone Screen Ur Barbiturates Screen Ur Phencyclidine Scrn Ur Amphetamines Screen U Methamphetamin-MDMA U Benzodiazepines Scrn Urine Cocaine Screen U Cannabinoids Screen Ur Drug Screen Comment Ethyl Alcohol 3.0 - Rhythm Strip Rhythm Strip: A-fib Rate: 160 Ectopy: PVC(s) - EKG Initial EKG Interpretation: No Acute Injury Pattern, Atrial Fibrillation - With rapid ventricular response, - - Occasional PVCs - Medical Decision Making Stroke Team Activated: No - Called prehospital but canceled IV Alteplase (t-PA) Administered: No - Last known well unknown With nonrebreather patient has oxygen saturations in the 50s and is very poor respiratory effort and is unresponsive, tachycardic, barely palpable pulses. She is perfusing and has audible heart sounds. Therefore we performed rapid sequence intubation immediately, and simultaneously canceled the stroke team as she clearly is not an IV TPA candidate due to timing, in my opinion this is not a stroke until proven otherwise. During intubation, the vocal cords were visually blocked from lots of crusty secretions that were also seen in her throat, possibly indicating aspiration. Procedure note: Pretreated with rocuronium 50 mg and etomidate 20 mg while bagging the patient on 100% oxygen. As above, cords with crusty secretions were mostly visualized with direct laryngoscopy using a MAC 3 blade by myself, a slight amount of cricoid pressure was placed by an pediatric assistant, who felt the tube passing. It was verified by CO2 capnometry good color change, audible breath sounds bilaterally that sounded equal and no sounds over the epigastrium. Placement verified by chest x-ray. Some family members arrived and I spoke with them. She was last normal 2 days ago, 1 of the family members spoke with her on the phone and she sounded like she was doing well and going back to get her GED. They do not know any specifics about her past medical history or the past 48 hours. At this time, CT head is unremarkable. The initial chest x-ray showed that the ETT was a little deep and just into the proximal right mainstem, prior to radiology leaving the room we had the tube pulled back 2 cm, a repeat chest x-ray shows it is in good position. Her blood pressure is low in the 80s, her pulse is thready, we are continuing to bolus her with IV fluids since she looks dehydrated. She is in A. fib with RVR in the 110s, so I do not want to slow that down just yet. ABG shows metabolic acidosis with PCO2 37, so we will continue on same vent settings since she is not hypoxic any longer. Labs are still coming back, her lactate is a little elevated, she developed a fever, she was hypotensive until we started the third liter, now she is having systolic blood pressures in the 100s, which is significantly improved. I discussed with hospitalist and intensive care Dr. Llanes, blood cultures were obtained, chest x-ray shows no pneumonia and urinalysis shows no infection. We will continue care in the ICU. Critical care time (excluding procedures): 30-74 minutes - 40 minutes, including time spent discussing with consultants, arranging admission, performing direct patient care at the bedside. Time is exclusive of procedures. ED Disposition - Plan for ED Patient: Disposition: Acute Care Hospital [facility] Diagnosis: Acute respiratory failure with hypoxia, Atrial fibrillation with rapid ventricular response, Thrombocytopenia, Lethargy, Dehydration Referrals: Surya Hickey MD [Primary Care Provider] -
[2019-05-13] MEDS: 0.9% Normal Saline 1,000 ML 999 ML IV ×3 (10:12→12:30)
[2019-05-13 10:21] LABS: Base Excess -11 mmol/L (-2 to +2); Bicarbonate 16.4 mmol/L (22-26); Blood Gas Specimen Type ART; FI02 70; Mode A-C; O2 Delivery Device Vent; PEEP 5; PO2 101 mmHG (75-100); RR 12; SITE R Brachial; SO2 97 % (95-99); Time Given 1020; Total Carbon Dioxide 18 mmol/L; Vt 450; pCO2 37.8 mmHg (35-45); pH 7.25 (7.35-7.45)
--- NOTE | 2019-05-13 10:37 | CM.ED ---
Social Work Referral: Patient unresponsive, and family needs to be contacted. Informant: Liberty RN Reviewed patient chart, Health Care Power of Intake Specialist is patient nephew, Trell. This social insurance specialist was able to make contact with Trell. Trell stating to have not been aware that patient was in the emergency department. This social insurance specialist encouraging Trell to come to the hospital, Trell stating to be on my way. Nursing staff updated. Trell presenting in a calm and collected manner per phone conversation. Will continue to follow as needed. Pedro Pablo PAREDES, FREDDY
[2019-05-13 10:53] LABS: Bacteria 0 SEEN /hpf (None Seen); Mucous, Urine 0 SEEN /hpf (<or=2+); Red Blood Cells-Urine 0 SEEN /hpf (0-5); Squamous Epithelial Cells - UA 0 SEEN /hpf (5-10)
[2019-05-13 10:55] LABS: Color, Urine Yellow (Yellow); Glucose, Dipstick Normal (Normal); Ketone-Dipstick 5 mg/dl (Negative); Leukocyte Esterase-Dipstick 25 /ul (Negative); Nitrite-Dipstick Negative (Negative); Occult Blood-Urine 250 /ul (Negative); Protein-Dipstick 30 mg/dl (Negative); Specific Gravity, Urine 1.015 (1.002-1.030); Urine Clarity Cloudy (Clear); Urine Urobilinogen 8 mg/dl (Normal)
[2019-05-13 10:56] LABS: Urine Bilirubin Dipstick 1 mg/dL (Negative)
[2019-05-13 11:06] LABS: White Blood Cells 0-5 SEEN /hpf (0-5)
[2019-05-13 11:16] LABS: Amphetamine Urine VISTA NEGATIVE (<1000 ng/mL); Barbiturate Urine VISTA NEGATIVE (< 200 ng/mL); Benzodiazepine Urine VISTA NEGATIVE (< 200 ng/mL); Cocaine Urine VISTA NEGATIVE (< 300 ng/mL); Ecstacy Urine VISTA POSITIVE (< 500 ng/mL); Methadone Urine VISTA NEGATIVE (< 300 ng/mL); PCP Urine VISTA NEGATIVE (< 25 ng/mL); THC Urine VISTA NEGATIVE (< 50 ng/mL); Vista UDS pH Range 6
--- NOTE | 2019-05-13 11:56 | ED.RN ---
DISPATCH CALLED ER WITH POSITIVE STROKE ALERT. UPON ARRIVAL PT NONRESPONSIVE AND BREATHING ON OWN, UNABLE TO OBTAIN PULSE OX. DR. ISRAEL INTUBATED PT AT 0953. OG AND STEPHENS PLACED, OG AND TUBE VERIFIED WITH XRAY. LABS OBTAINED. PT TO CT. PT WAS INCONTINENT OF URINE AND BOWEL NOTICED UPON ARRIVAL TO ER. PT APPEARS IF SHE HAD BEEN LAYING AND UNRESPONSIVE FOR A SIGNIFICANT AMOUNT OF TIME. AFTER INTUBATION PT REQUIRES NO SEDATION. PT DOES NOT RESPOND TO VERBAL OR PAINFUL STIMULI. RN AT BEDSIDE ENTIRE TIME OF PT STAY IN DEPARTMENT.
--- NOTE | 2019-05-13 12:23 | ED.RN ---
LACTIC ACID 2.7, MADE AWARE
--- NOTE | 2019-05-13 12:23 | ED.RN ---
DELAY IN BLOOD CULTURE AND LACTIC DRAWN D/T DIFFICULTY DRAWING BLOOD
[2019-05-13 12:24] LABS: Lactic Acid 2.7 mmol/L (0.4-2.0)
[2019-05-13 12:25] LABS: Absolute Lymphocyte Count 0.56 X10^3/uL (0.83-4.51); Absolute Neutrophil Count 12.7 X10^3/uL (2.0-7.7); Basophil# 0.01 X10^3/uL; Basophil% 0.1 % (0-1); Eosinophil# 0.15 X10^3/uL; Hematocrit 40.7 % (37-47); Hemoglobin 13.3 g/dL (12.0-15.0); Lymphocyte # 0.56 X10^3/ul (4.0); Lymphocyte % 3.9 % (19-41); Mean Corp Hgb Conc 32.7 g/dL (32-36); Mean Corpuscular Hgb 30.6 pg (27.0-32.0); Mean Corpuscular Volume 93.8 fL (81-99); Monocyte# 0.79 X10^3/uL; Monocyte% 5.4 % (0-10); NRBC Flagged by Analyzer 0.3 % (0-5); Neutrophil # 12.68 X10^3/uL (2.7-7.7); Neutrophil % 87.5 % (47-70); POSITIVE COUNT YES; POSITIVE DIFFERENTIAL YES; POSITIVE MORPHOLOGY YES; RBC Distribution Width CV 16.3 % (11.6-14.6); Red Blood Count 4.34 M/mm3 (4.2-5.4); White Blood Count 14.5 K/mm3 (4.4-11.0)
[2019-05-13 12:32] LABS: International Normalized Ratio 1.2; Partial Thromboplast Time 27.8 Seconds (24.1-36.2); Prothrombin Time (Protime)PT. 15.4 SECONDS (11.7-14.9)
[2019-05-13 12:40] LABS: Platelet Count 20 K/mm3 (150-450)
[2019-05-13 13:09] LABS: ALB/GLOB Ratio 0.4 RATIO (0.9-2.4); AST(SGOT) 241 U/L (15-37); Alanine Aminotransfer ALT/SGPT 83 U/L (13-56); Albumin, Serum 1.8 g/dL (3.2-5.0); Alkaline Phosphatase 247 U/L (45-117); Anion Gap 13 (5-15); BUN 123 mg/dL (7-18); BUN/Creat Ratio 30.8 RATIO (10-20); CPK Total, Creatine Kinase 3819 U/L (26-192); Calcium,Total 7.8 mg/dL (8.5-10.1); Chloride 109 mmol/L (98-107); Creatinine, Serum 3.99 mg/dL (0.55-1.02); EST Glomerular Filtration Rate 12 mL/min (>60); Est Glom Filt Rate - Afr Amer 15 mL/min (>60); Estimated Creatinine Clearance 14.22 ml/min; Globulin 4.2 g/dL (2.2-4.2); Glucose 176 mg/dL (74-106); Potassium 4.2 mmol/L (3.5-5.1); Sodium Level 141 mmol/L (136-145)
--- NOTE | 2019-05-13 13:42 | CON.PCM_ITS ---
Reason for Consult Date of Consultation: 05/13/19 Reason for Consultation: Acute Respiratory Failure History of Present Illness: The patient is a 64-year-old female, with a history as outlined below, who initially presented to the emergency department on May 13 after being found down unresponsive by a family member. History pertinent to the patient's hospitalization was obtained primarily via chart review, as the patient is currently intubated, nonresponsive and there is no family members available at the bedside. The patient has a known history of obstructive sleep apnea, morbid obesity and dyspnea on exertion. She has been evaluated by myself in the pulmonary medicine clinic, most recently in March 2019. At that time, the patient was noted to be noncompliant with the use of nocturnal BiPAP (06/05) therapy. She does have an extensive smoking history of upwards of 2 packs of cigarettes per day x45 years. She reports that she quit smoking completely in June 2018. Pulmonary function studies completed in April 2019 revealed evidence of an isolated defect in diffusing capacity consistent with a pulmonary vascular disorder. There was no evidence of COPD. Prior 6-minute walk test revealed impaired walk distance without significant exertional oxygen desaturation. A bronchoprovocation challenge was also completed in November 2016 and was found to be negative. On presentation to the emergency department, the patient was noted to be hypothermic, tachycardic and hypotensive. She was found to be in atrial fibrillation with a rapid ventricular rate. Initial laboratory evaluation revealed an elevated white blood cell count to 15,000. The patient was thrombocytopenic with a platelet count of 20,000. In February 2019, the patient was noted to have a platelet count of 149,000. INR was noted to be within normal limits. Chemistry profile was notable for a bicarbonate of 19, BUN of 123 and creatinine of 3.99. Lactate was elevated to 2.7. Phosphorus was increased to 6.2. There was an increase in total bilirubin to 2.7. AST and ALT were elevated to 241 and 83, respectively. Total CK was increased to 3819. Initial troponin was elevated to 0.241. Toxicology screen was positive for methamphetamine-MDMA. Initial CT head revealed no acute intracranial process. The patient did require emergent intubation in the emergency department. Follow-up plain film chest x-ray revealed right mainstem intubation, for which the endotracheal tube was pulled back. The patient initially received supplemental IV fluid hydration and was transferred to the medical intensive care unit for further management. On arrival to the ICU, over concerns for sepsis, the patient was started on broad-spectrum antimicrobials. A central venous catheter was subsequently placed due to hemodynamic instability and the potential need to utilize vasopressors. Past Medical History Past Medical History (Chronic Problems): Chronic Problems (Last Reviewed 05/13/19 @ 20:07 by Trupti Bagley DO) History of aortic valve replacement with bioprosthetic valve (Chronic) Tobacco dependence in remission (Chronic) quit in 2018 after smoking 1 and 1/2 PPD for 40 years Benzodiazepine dependence (Chronic) COPD (chronic obstructive pulmonary disease) case management patient (Chronic) Obstructive sleep apnea (Chronic) complaint with CPAP per nephew but has not had a sleep study in many years and she has gained a lot of wt. Anxiety (Chronic) Depression (Chronic) GERD (gastroesophageal reflux disease) (Chronic) Hyperlipidemia (Chronic) Morbid obesity (Chronic) Degenerative disc disease (Chronic) HTN (hypertension) (Chronic) Opiate dependence (Chronic) Medical History: Medical History (Last Reviewed 05/13/19 @ 20:07 by Trupti Bagley DO) Benzodiazepine dependence (Chronic) F13.20 COPD (chronic obstructive pulmonary disease) case management patient (Chronic) [id number] Obstructive sleep apnea (Chronic) G47.33 complaint with CPAP per nephew but has not had a sleep study in many years and she has gained a lot of wt. Anxiety (Chronic) F41.9 Depression (Chronic) F32.9 GERD (gastroesophageal reflux disease) (Chronic) K21.9 Hyperlipidemia (Chronic) E78.5 Morbid obesity (Chronic) E66.01 Degenerative disc disease (Chronic) [id number] HTN (hypertension) (Chronic) I10 Opiate dependence (Chronic) F11.20 Cat bite involving extremity (Resolved) Cellulitis (Resolved) L03.90 Ulcer of right lower leg (Resolved) L97.919 Allergies Iodinated Contrast Media [CONTRASTS] Allergy (Verified 04/08/19 09:57) Swelling lidocaine [From Lidoderm] Allergy (Verified 04/08/19 09:57) Rash Home Medications: Ambulatory Orders Medication Instructions Recorded Aspirin E.C. [Ecotrin] 81 mg PO DAILY@0800 12/31/14 Fluticasone 0.05% [Flonase Nasal 2 spray NASAL QHS 12/31/14 [place]] Allopurinol [Zyloprim] 300 mg PO DAILY 03/20/16 Magnesium Oxide [Mag-Ox 400] 400 mg PO BID 05/22/16 Albuterol Inhaler [Ventolin Hfa] 1 - 2 puff INHALATION Q4H PRN PRN 07/26/16 Bupropion HCl [Bupropion HCl Sr] 300 mg PO DAILY 07/26/16 Cyclosporine [Restasis] 2 drp EACH EYE BID 07/26/16 Aripiprazole [Abilify] 10 mg PO DAILY 03/06/19 Pantoprazole Sodium 40 mg PO DAILY 03/06/19 Pramipexole Di-HCl [Mirapex] 1 mg PO DAILY 03/06/19 Alendronate Sodium [Fosamax] 70 mg PO SA 03/09/19 Atorvastatin Calcium [Lipitor] 20 mg PO DAILY 03/09/19 Calcium Carbonate/Vitamin D3 1 ea PO BID 03/09/19 [Oyster Shell 500-Vit D3 200 Tb] Carvedilol 25 mg PO BID 03/09/19 Cholecalciferol (Vitamin D3) 1,000 unit PO DAILY 03/09/19 [Vitamin D3] Citalopram [Celexa] 20 mg PO DAILY 03/09/19 Cyclobenzaprine HCl 10 mg PO BID PRN 03/09/19 Furosemide [Lasix] 40 mg PO DAILY 03/09/19 Potassium Chloride [Klor-Con M10] 20 meq PO BID 03/09/19 Trazodone HCl 100 mg PO QHS 03/09/19 Acetaminophen [Tylenol Tablet] 650 mg PO Q6H PRN PRN tab 03/12/19 gabapentin 300 mg capsule 300 mg PO QWEEK cap 04/08/19 oxycodone ER 9 mg capsule sprinkle 9 mg PO BID 04/08/19 extended release 12 hr(DON'T CRUSH) Surgical History: cholecystectomy, - - AVR, right ankle surgery x2, hysterectomy x2, tonsillectomy Psychiatric History: Anxiety, Depression CAVALRY SCOUT History: No pertinent CAVALRY SCOUT history Lives: Alone Smoking Status: Unknown if ever smoked - *Family History Maternal Family History: Family History (Last Reviewed 05/13/19 @ 20:09 by Trupti Bagley DO) Mother Hypertension Heart disease Diabetes CVA (cerebral vascular accident) History Items: Diabetes, - - from aneurysm, unknown type Paternal Family History: Family History (Last Reviewed 05/13/19 @ 20:09 by Trupti Bagley DO) Mother Hypertension Heart disease Diabetes CVA (cerebral vascular accident) History Items: - - Denies known paternal medical history including cardiac history. Review of Systems Unable to obtain accurate/complete ROS d/t: Due to current intubation and mechanical ventilation status Patient Problems: Active and Suspected Problems (Last Reviewed 05/13/19 @ 20:07 by Trupti Bagley DO) Acute respiratory failure with hypoxia (Acute) Atrial fibrillation with rapid ventricular response (Acute) Thrombocytopenia (Acute) Dehydration (Acute) Septic shock (Acute) Acute febrile illness (Acute) source not yet identified Rhabdomyolysis (Acute) ARF (acute renal failure) (Acute) Uremic encephalopathy (Acute) Abnormal LFTs (Acute) Metabolic acidosis (Acute) Lactic acidosis (Acute) Objective: The patient's most recent lab work, culture data and imaging studies have all be en personally reviewed. - Physical Exam Vitals/I&O's: Vital Signs Temp Pulse Resp BP Pulse Ox 100.2 F H 157 H 28 H 108/63 96 05/13/19 12:00 05/13/19 13:15 05/13/19 12:30 05/13/19 13:15 05/13/19 12:30 Oxygen Delivery Method Mechanical Ventilator Weight: 297 lb 13.512 oz Body Mass Index (BMI) 46.6 Finger Stick Blood Glucose 180 Intake and Output for Last 24 Hours 05/11/19 05/12/19 05/13/19 23:59 23:59 23:59 Intake Total 1999 Balance 1999 General: - - Intubated, nonresponsive and mechanically ventilated. HEENT: Atraumatic, PERRLA, Normocephalic Oral: Dry Mucosa, - - Endotracheal and OG tubes currently in place Neck: Supple, No Nodes, Trachea Midline, - - Large neck circumference with redundant soft tissue Lungs: No rhonchi, No wheeze, No rales, Diminished Cardiovascular: Normal S1, Normal S2, No murmurs, Irregular Rate Abdomen: Soft, Non Tender, Hypoactive Bowel Sounds, Obese Extremities: No clubbing, Cool, Diminished Peripheral Pulses, Edema Skin: No rashes Musculoskeletal: No Muscle Wasting Lymphatic: No Cervical, Supraclavicular, or Inguinal Adenopathy Neurological: - - Attempts to withdraw to noxious stimulation. Will open eyes to name. Does not follow simple commands at the current time. Laboratory Results 05/13/19 10:16: Specimen Type ART, Sample Site R Brachial, pH 7.25 L, Bicarbonate Actual 16.4 L, POC Total CO2 18, Base Excess -11 L, O2 Saturation 97, O2 % 70, ABG pCO2 37.8, ABG pO2 101 H, Gennaro Test NA, Respiration Rate 12, O2 Delivery Device Vent, Minute Volume 5.00, Vent Mode A-C, Tidal Volume 450, POC PEEP 5, Blood Gas Notified Whom ED MD, Blood Gas Notified Time 1020 05/13/19 10:49: Urine Opiates Screen NEGATIVE, Urine Methadone Screen NEGATIVE, Ur Barbiturates Screen NEGATIVE, Ur Phencyclidine Scrn NEGATIVE, Ur Amphetamines Screen NEGATIVE, U Methamphetamin-MDMA POSITIVE H, U Benzodiazepines Scrn NEGATIVE, Urine Cocaine Screen NEGATIVE, U Cannabinoids Screen NEGATIVE, Ur Drug Screen Comment 05/13/19 10:49: Urine Color Yellow, Urine Clarity Cloudy, Urine pH 6.0, Ur Specific [place] 1.015, Urine Protein 30 H, Urine Glucose (UA) Normal, Urine Ketones 5 H, Urine Occult Blood 250 H, Urine Nitrite Negative, Urine Bilirubin 1 H, Urine Urobilinogen 8 H, Ur Leukocyte Esterase 25 H, Urine RBC 0 SEEN, Urine WBC 0-5 SEEN, Ur Squamous Epith Cells 0 SEEN, Urine Bacteria 0 SEEN, Urine Mucus 0 SEEN 05/13/19 11:40: Lactic Acid 2.7 H 05/13/19 12:15: WBC 14.5 H, RBC 4.34, Hgb 13.3, Hct 40.7, MCV 93.8, MCH 30.6, MCHC 32.7, RDW Std Deviation 57.0 H, RDW Coeff of Pierre 16.3 H, Plt Count 20 L*, MPV TNP, Immature Gran % (Auto) 2.100 H, Neut % (Auto) 87.5 H, Lymph % (Auto) 3.9 L, [place] % (Auto) 5.4, Eos % (Auto) 1.0, Baso % (Auto) 0.1, Absolute Neuts (auto) 12.7 H, Absolute Lymphs (auto) 0.56 L, Nucleated RBC % 0.3, Differential Comment , Diff Path Review November05/13/19 12:15: PT 15.4 H, INR 1.2, APTT 27.8 05/13/19 12:15: Sodium 141, Potassium 4.2, Chloride 109 H, Carbon Dioxide 19.0 L , Anion Gap 13, BUN 123 H*, Creatinine 3.99 H, Estim Creat Clear Calc 14.22, Est GFR (MDRD) Af Amer 15 L, Est GFR (MDRD) Non-Af 12 L, BUN/Creatinine Ratio 30.8 H , Glucose 176 H, Calcium 7.8 L, Total Bilirubin 2.70 H, AST 241 H, ALT 83 H, Alkaline Phosphatase 247 H, Total Creatine Kinase 3819 H, Troponin I 0.241 H, Total Protein 6.0 L, Albumin 1.8 L, Globulin 4.2, Albumin/Globulin Ratio 0.4 L 05/13/19 12:15: Ethyl Alcohol 3.0 Labs (Last 48 Hours) 05/13/19 05/13/19 05/13/19 10:16 10:49 10:49 WBC RBC Hgb Hct MCV MCH MCHC RDW Std Deviation RDW Coeff of Pierre Plt Count MPV Immature Gran % (Auto) Neut % (Auto) Lymph % (Auto) [place] % (Auto) Eos % (Auto) Baso % (Auto) Absolute Neuts (auto) Absolute Lymphs (auto) Nucleated RBC % Differential Comment Diff Path Review PT INR APTT Specimen Type ART Sample Site R Brachial pH 7.25 L Bicarbonate Actual 16.4 L POC Total CO2 18 Base Excess -11 L O2 Saturation 97 O2 % 70 ABG pCO2 37.8 ABG pO2 101 H Gennaro Test NA Respiration Rate 12 O2 Delivery Device Vent Minute Volume 5.00 Vent Mode A-C Tidal Volume 450 POC PEEP 5 Blood Gas Notified Whom ED Blood Gas Notified Time 1020 Sodium Potassium Chloride Carbon Dioxide Anion Gap BUN Creatinine Estim Creat Clear Calc Est GFR (MDRD) Af Amer Est GFR (MDRD) Non-Af BUN/Creatinine Ratio Glucose Lactic Acid Calcium Total Bilirubin AST ALT Alkaline Phosphatase Total Creatine Kinase Troponin I Total Protein Albumin Globulin Albumin/Globulin Ratio Urine Color Yellow Urine Clarity Cloudy Urine pH 6.0 Ur Specific [place] 1.015 Urine Protein 30 H Urine Glucose (UA) Normal Urine Ketones 5 H Urine Occult Blood 250 H Urine Nitrite Negative Urine Bilirubin 1 H Urine Urobilinogen 8 H Ur Leukocyte Esterase 25 H Urine RBC 0 SEEN Urine WBC 0-5 SEEN Ur Squamous Epith Cells 0 SEEN Urine Bacteria 0 SEEN Urine Mucus 0 SEEN Urine Opiates Screen NEGATIVE Urine Methadone Screen NEGATIVE Ur Barbiturates Screen NEGATIVE Ur Phencyclidine Scrn NEGATIVE Ur Amphetamines Screen NEGATIVE U Methamphetamin-MDMA POSITIVE H U Benzodiazepines Scrn NEGATIVE Urine Cocaine Screen NEGATIVE U Cannabinoids Screen NEGATIVE Ur Drug Screen Comment Ethyl Alcohol 05/13/19 05/13/19 05/13/19 11:40 12:15 12:15 WBC 14.5 H RBC 4.34 Hgb 13.3 Hct 40.7 MCV 93.8 MCH 30.6 MCHC 32.7 RDW Std Deviation 57.0 H RDW Coeff of Pierre 16.3 H Plt Count 20 L* MPV TNP Immature Gran % (Auto) 2.100 H Neut % (Auto) 87.5 H Lymph % (Auto) 3.9 L [place] % (Auto) 5.4 Eos % (Auto) 1.0 Baso % (Auto) 0.1 Absolute Neuts (auto) 12.7 H Absolute Lymphs (auto) 0.56 L Nucleated RBC % 0.3 Differential Comment Diff Path Review May foll PT 15.4 H INR 1.2 APTT 27.8 Specimen Type Sample Site pH Bicarbonate Actual POC Total CO2 Base Excess O2 Saturation O2 % ABG pCO2 ABG pO2 Gennaro Test Respiration Rate O2 Delivery Device Minute Volume Vent Mode Tidal Volume POC PEEP Blood Gas Notified Whom Blood Gas Notified Time Sodium Potassium Chloride Carbon Dioxide Anion Gap BUN Creatinine Estim Creat Clear Calc Est GFR (MDRD) Af Amer Est GFR (MDRD) Non-Af BUN/Creatinine Ratio Glucose Lactic Acid 2.7 H Calcium Total Bilirubin AST ALT Alkaline Phosphatase Total Creatine Kinase Troponin I Total Protein Albumin Globulin Albumin/Globulin Ratio Urine Color Urine Clarity Urine pH Ur Specific [place] Urine Protein Urine Glucose (UA) Urine Ketones Urine Occult Blood Urine Nitrite Urine Bilirubin Urine Urobilinogen Ur Leukocyte Esterase Urine RBC Urine WBC Ur Squamous Epith Cells Urine Bacteria Urine Mucus Urine Opiates Screen Urine Methadone Screen Ur Barbiturates Screen Ur Phencyclidine Scrn Ur Amphetamines Screen U Methamphetamin-MDMA U Benzodiazepines Scrn Urine Cocaine Screen U Cannabinoids Screen Ur Drug Screen Comment Ethyl Alcohol 05/13/19 05/13/19 12:15 12:15 WBC RBC Hgb Hct MCV MCH MCHC RDW Std Deviation RDW Coeff of Pierre Plt Count MPV Immature Gran % (Auto) Neut % (Auto) Lymph % (Auto) [place] % (Auto) Eos % (Auto) Baso % (Auto) Absolute Neuts (auto) Absolute Lymphs (auto) Nucleated RBC % Differential Comment Diff Path Review PT INR APTT Specimen Type Sample Site pH Bicarbonate Actual POC Total CO2 Base Excess O2 Saturation O2 % ABG pCO2 ABG pO2 Gennaro Test Respiration Rate O2 Delivery Device Minute Volume Vent Mode Tidal Volume POC PEEP Blood Gas Notified Whom Blood Gas Notified Time Sodium 141 Potassium 4.2 Chloride 109 H Carbon Dioxide 19.0 L Anion Gap 13 BUN 123 H* Creatinine 3.99 H Estim Creat Clear Calc 14.22 Est GFR (MDRD) Af Amer 15 L Est GFR (MDRD) Non-Af 12 L BUN/Creatinine Ratio 30.8 H Glucose 176 H Lactic Acid Calcium 7.8 L Total Bilirubin 2.70 H AST 241 H ALT 83 H Alkaline Phosphatase 247 H Total Creatine Kinase 3819 H Troponin I 0.241 H Total Protein 6.0 L Albumin 1.8 L Globulin 4.2 Albumin/Globulin Ratio 0.4 L Urine Color Urine Clarity Urine pH Ur Specific [place] Urine Protein Urine Glucose (UA) Urine Ketones Urine Occult Blood Urine Nitrite Urine Bilirubin Urine Urobilinogen Ur Leukocyte Esterase Urine RBC Urine WBC Ur Squamous Epith Cells Urine Bacteria Urine Mucus Urine Opiates Screen Urine Methadone Screen Ur Barbiturates Screen Ur Phencyclidine Scrn Ur Amphetamines Screen U Methamphetamin-MDMA U Benzodiazepines Scrn Urine Cocaine Screen U Cannabinoids Screen Ur Drug Screen Comment Ethyl Alcohol 3.0 Clinical Impression(s) from Imaging Studies Chest X-Ray 05/13/19 09:57 IMPRESSION: The tip of the endotracheal tube is at 3.7 cm proximal to the morena. Electronically Signed: Jose Longo, at 10:51 EDT , Service support , Brain CT 05/13/19 09:58 IMPRESSION: Chronic involutional changes of the brain. Electronically Signed: Jose Longo, at 11:18 EDT , Service support , Chest X-Ray 05/13/19 09:59 IMPRESSION: The tip of the endotracheal tube is at the origin of the right mainstem bronchus. It should be withdrawn approximately 3 cm. Electronically Signed: Jose Longo, at 10:51 EDT , Service support , Current Medications Propofol (Diprivan) 1,000 mg in 100 mls @ 8.106 mls/hr CONT INF .Q12H PHANI; Protocol Assessment/Plan Active and Suspected Problems (Last Reviewed 05/13/19 @ 20:07 by Trupti Bagley DO) Acute respiratory failure with hypoxia (Acute) Atrial fibrillation with rapid ventricular response (Acute) Thrombocytopenia (Acute) Dehydration (Acute) Septic shock (Acute) Acute febrile illness (Acute) source not yet identified Rhabdomyolysis (Acute) ARF (acute renal failure) (Acute) Uremic encephalopathy (Acute) Abnormal LFTs (Acute) Metabolic acidosis (Acute) Lactic acidosis (Acute) RECOMMENDATIONS: 1. Place central venous catheter to facilitate vasopressor administration, if needed. 2. Continue amiodarone for rate/rhythm control. 3. Await results of echocardiogram. Trend troponins accordingly. 4. Await nephrology consultation. 5. Start broad-spectrum antimicrobials at this time. 6. Avoid sedating medications. 7. Avoid propofol given elevated triglycerides. 8. Obtain arterial blood gas and wean FiO2 to maintain saturations at or above 90%. 9. Start appropriate ICU prophylaxis. IMPRESSIONS: 1. Acute hypoxemic respiratory failure The patient was initially found down in an unresponsive state by family members. She was subsequently intubated upon arrival to the emergency department. While the patient initially did not have evidence of an infiltrate on plain film chest x-ray, she was significantly intravascularly volume depleted. My concern, is at the patient will likely blossom out a pulmonary infiltrate when she has been volume resuscitated. I have seen the patient in the pulmonary medicine clinic in the past. While she does have a prior smoking history, she does not have evidence of COPD on pulmonary function studies. We will plan to continue current supportive measures with invasive mechanical ventilatory support and broad-spectrum antimicrobial coverage. We will wean FiO2 to maintain an oxygen saturation at or above 90%. 2. Septic shock Concern for underlying pulmonary infectious process. The patient presented in a state of significant intravascular volume depletion. I do suspect that she may develop a pulmonary infiltrate on chest imaging upon successful intravascular volume expansion. Therefore, I would recommend the initiation of broad-spectrum antimicrobials. Repeat lactate is currently pending. We will plan to place central venous catheter to facilitate vasopressor support, if required. Culture data is currently pending. 3. Metabolic encephalopathy The exact etiology for the patient's presenting encephalopathy is unclear. It is unknown whether she may have overdosed on outpatient prescription medications. Nevertheless, her current state of encephalopathy is likely metabolic in nature as she is significantly uremic. Nephrology consultation is currently pending. Initial CT head was negative. The patient has no known history of an underlying seizure disorder. I would avoid using sedating medications if possible. 4. Acute on chronic kidney disease This is likely prerenal in etiology and related to significant intravascular volume depletion. The patient is currently being volume resuscitated. Consultation has been placed to nephrology. We will monitor urine output. No current indication for renal replacement therapy. 5. Atrial fibrillation with rapid ventricular rate The patient did present to the emergency department with new onset atrial fibrillation with rapid ventricular rate, which may have been precipitated by the patient's current infectious state. We will plan to bolus amiodarone and continue her on a drip. Echocardiogram is currently pending. A consultation has been placed to cardiology. 6. Thrombocytopenia The patient was noted to have a normal platelet count in February 2019. While the etiology for the patient's thrombocytopenia is unclear, considerations would include DIC in the setting of sepsis versus a possible thrombotic microangiopathy. Given that the patient is in need for an invasive procedure including central venous catheter placement, she is going to receive empiric platelet transfusion. I would recommend reviewing the peripheral smear to eval uate for the presence of schistocytes. 7. Elevated transaminases I suspect there is likely a component of shock liver at play here, given the patient's tenuous hemodynamics. A CT abdomen/pelvis is currently pending. We will also plan to check a hepatitis profile as well. 8. Troponin elevation Likely secondary to demand ischemia in the setting of septic shock. Troponins will be trended with echocardiogram pending. Cardiology consultation is pending as well. 9. Super morbid obesity/history of medical noncompliance/obstructive sleep apnea/history of tobacco dependency, in remission Complicates care, management, recovery and prognosis. We will plan to begin tube feeds beginning tomorrow. The patient will require physical therapy evaluation, once medically stabilized. TIME: 60 minutes of critical care time, independent of procedures, was spent addressing the patient's acute hypoxemic respiratory failure, septic shock, metabolic encephalopathy, acute on chronic kidney disease, atrial fibrillation with rapid ventricular rate, thrombocytopenia, review of all data and collabo ration with the care team. ([id number], [id number]) Code Visit [id number]: [id number] Critical care first hour
--- NOTE | 2019-05-13 14:59 | ECHOCS_ITS ---
Version 2 Reason For Study: Afib/Flutter Procedure This was a 2D Doppler, Color Flow transthoracic echocardiogram. The study was technically difficult. Contrast injection was performed. Exam performed portable in ICU/CCU. Left Ventricle Normal LV size. The estimated ejection fraction is 50 %. Unable to assess diastolic dysfunction due to arrhythmia. Mid-anteroseptal : Mildly hypokinetic. Right Ventricle Normal RV size. Normal systolic function. Atria The left atrium is mildly enlarged. Normal right atrium. Mitral Valve Mitral valve not well visualized. Tricuspid Valve Normal tricuspid valve. Aortic Valve The aortic valve is not well visualized. Pulmonic Valve The pulmonic valve is not well visualized. Great Vessels Normal aortic root. The pulmonary artery is normal size. Normal inferior vena cava. Pericardium/Pleural No pericardial effusion. Medication Diluted definity 3ml given slow IV push to enhance endocardial definition. MMode/2D Measurements & Calculations LVIDd: 3.8 cm IVSd: 2.2 cm LVOT diam: 2.0 cm LVIDs: 3.4 cm LVPWd: 1.3 cm FS: 11.0 % LVOT area: 3.2 cm2 Ao root diam: 3.7 cm LAV(MOD-bp): 59.6 ml LA A4 area: 21.4 cm2 LAV(MOD-bp) Indexed: 28.7 ml/m2 LAV(MOD-sp2): 57.0 ml LAV(MOD-sp4): 66.9 ml RA A4 area: 19.2 cm2 Doppler Measurements & Calculations MV E max poonam: 74.7 cm/sec Ao V2 max: 211.0 cm/sec LV V1 max: 128.0 cm/sec Ao max P.3 mmHg LV V1 max P.8 mmHg Ao V2 mean: 141.8 cm/sec LV V1 mean P.3 mmHg Ao mean P.7 mmHg LV V1 mean: 82.1 cm/sec Ao V2 VTI: 25.6 cm LV V1 VTI: 17.4 cm CATALINA(I,D): 2.2 cm2 CATALINA(V,D): 1.9 cm2 SV(LVOT): 55.7 ml PA V2 max: 89.6 cm/sec TR max poonam: 235.4 cm/sec TR max P.2 mmHg Interpretation Summary Normal LV size. The estimated ejection fraction is 50 %. Unable to assess diastolic dysfunction due to arrhythmia. Contrast injection was performed. The study was technically limited. The study was technically difficult. Ordering Physician: Trupti Bagley Referring Physician: Surya Hickey M.D. Performed By: Dusty Estrella RCS
[2019-05-13] MEDS: Digoxin 250 MCG/ML Ampul 500 MCG IV (15:01)
[2019-05-13 15:10] LABS: Allen Test POS; Base Excess -11 mmol/L (-2 to +2); Bicarbonate 14.2 mmol/L (22-26); Blood Gas Specimen Type ART; FI02 55; Mode A-C; O2 Delivery Device Vent; PEEP 5; PO2 136 mmHG (75-100); RR 12; SITE R Brachial; SO2 99 % (95-99); Time Given 1458; Total Carbon Dioxide 15 mmol/L; Vt 450; pCO2 24.8 mmHg (35-45); pH 7.37 (7.35-7.45)
[2019-05-13 15:52] LABS: Crenated RBC 1+
[2019-05-13 16:18] LABS: Phosphorus 6.2 mg/dL (2.5-4.9)
[2019-05-13 16:23] LABS: Hemoglobin A1c 5.8 % (4.2-6.3)
--- NOTE | 2019-05-13 16:33 | PCM.OPRPT ---
Report of Operation Date of Procedure: 05/13/19 Surgery/Procedure Performed:: Triple-lumen catheter insertion Description of Surgical Findings:: Central line placement procedure note Indication: IV access/hemodynamic instability/vasoactive medications Procedure: A time-out was completed to verify correct patient, indication, medication allergies, procedure, coagulation studies, informed consent signed, and equipment needed. The patient was placed in the supine position for a central line placement to the left IJ vein. The patients left neck was prepped using chlorhexidine and a full body sterile drape was applied. A 7fr 20 cm blue guard triple lumen catheter introduced into the internal vein using the modified Seldinger technique with the assistance of ultrasound. The catheter was threaded smoothly over the guidewire, the guidewire was removed easily, nonpulsatile blood returned. All ports were aspirated of air and flushed with sterile saline. The catheter was sutured in place and covered with an occlusive dressing impregnated with chlorhexidine. Post-procedure: The patient tolerated the procedure well. Vital signs remained stable. EBL 3 cc. No complications. Chest X Ray ordered to confirm tip placement and the absence of pneumothorax. Code Visit Procedures: [id number] Insert Non-tunnel CV Cath
--- NOTE | 2019-05-13 16:45 | RAD_ITS ---
STUDY: X-RAY CHEST REASON FOR EXAM: Female, 64 years old. Line placement. TECHNIQUE: Single AP portable view of the chest. COMPARISON: Earlier the same day. FINDINGS: Endotracheal tube, 3 cm above the morena. Feeding tube extends to the stomach in the left upper quadrant. Central catheter entering from left jugular approach extends to the cavoatrial junction. Left lower lung atelectasis. There is pleural fibrotic scarring of the left costophrenic angle. Sternal cerclage wires are present from a prior sternotomy. Normal mediastinum and juan a. Normal visualized pulmonary arteries. Normal visualized aortic arch and descending thoracic aorta. There is kyphoplasty of lower thoracic vertebra. Normal visualized ribs, clavicles, and shoulders. There is no demonstrated abnormality of the visualized soft tissue structures of the upper abdomen. RAD/Chest 1 View (Portable) IMPRESSION: Central catheter extends to the cavoatrial junction. No pneumothorax. Electronically Signed: Toi Saenz MD at 17:32 EDT , Service support ,
[2019-05-13 17:26] LABS: Erythrocyte Sedimentation Rate 67 mm/hr (0-30)
[2019-05-13 17:29] LABS: Fibrinogen 851 mg/dl (203-444)
[2019-05-13 17:40] LABS: Lactic Acid 2.2 mmol/L (0.4-2.0)
[2019-05-13 17:42] LABS: Magnesium 2.4 mg/dL (1.6-2.6)
[2019-05-13 17:50] LABS: Bilirubin, Direct 2.37 mg/dL (0.00-0.30); GGTP 83 U/L (5-55); LDH 528 U/L (84-246); Rheumatoid Factor < 10.0 IU/mL (<15)
--- NOTE | 2019-05-13 18:08 | PCM.RX.CS ---
Consult Pharmacy has been consulted to manage selected antiobiotic: Vancomycin Type of Consult: New start Suspected Infection: Other Prior Doses of Antibiotics Received/Current Regimen: NONE Labs: Sodium 141 mmol/L (136-145) 05/13/19 12:15 Potassium 4.2 mmol/L (3.5-5.1) 05/13/19 12:15 Chloride 109 mmol/L (98-107) H 05/13/19 12:15 Carbon Dioxide 19.0 mmol/L (21.0-32.0) L 05/13/19 12:15 Anion Gap 13 (5-15) 05/13/19 12:15 BUN 123 mg/dL (7-18) H* 05/13/19 12:15 Creatinine 3.99 mg/dL (0.55-1.02) H 05/13/19 12:15 Est GFR (MDRD) Af Amer 15 mL/min (>60) L 05/13/19 12:15 Est GFR (MDRD) Non-Af 12 mL/min (>60) L 05/13/19 12:15 BUN/Creatinine Ratio 30.8 RATIO (10-20) H 05/13/19 12:15 Glucose 176 mg/dL (74-106) H 05/13/19 12:15 Weight used for dosin kg Estimated Creatinine Clearance: 14 ML/MIN Goal Trough: 15-20 mcg/mL Pharmacy Plan for Drug Dosing: PLAN/RECOMMENDATIONS 1. Vancomycin 2000mg IV x1 loading dose administered 05/13/19 @1718 2. Random vancomycin level 05/15/19 with AM labs. Will dose based off of this level since CrCl <20mL/min. 3. Pharmacy Service will continue to monitor and adjust dosing as required.
[2019-05-13 18:34] LABS: Triglycerides 670 mg/dL
--- NOTE | 2019-05-13 18:46 | CON.PCM_ITS ---
Reason for Consult Date of Consultation: 05/13/19 Reason for Consultation: Assistance with cardiac status. History of Present Illness: The patient is a 64 year old F with no cardiac history which is available at this present time. The patient was brought to the emergency room found u nresponsive at home. In the emergency room it was initially thought that she had suffered a cerebrovascular event. Based on the history it however appear that she had had an aortic valve replacement remotely. She was found to be in atrial fibrillation with rapid ventricular response rate was noted to have acute renal failure with a markedly elevated BUN and creatinine. She was admitted to the intensive care unit intravenous fluids started after she was intubated. No other history is available. [] Past Medical History Allergies/Adverse Reactions: Allergies Iodinated Contrast Media [CONTRASTS] Allergy (Verified 04/08/19 09:57) Swelling lidocaine [From Lidoderm] Allergy (Verified 04/08/19 09:57) Rash Home Medications: Ambulatory Orders Medication Instructions Recorded Aspirin E.C. [Ecotrin] 81 mg PO DAILY@0800 12/31/14 Fluticasone 0.05% [Flonase Nasal 2 spray NASAL QHS 12/31/14 [place]] Allopurinol [Zyloprim] 300 mg PO DAILY 03/20/16 Magnesium Oxide [Mag-Ox 400] 400 mg PO BID 05/22/16 Albuterol Inhaler [Ventolin Hfa] 1 - 2 puff INHALATION Q4H PRN PRN 07/26/16 Bupropion HCl [Bupropion HCl Sr] 300 mg PO DAILY 07/26/16 Cyclosporine [Restasis] 2 drp EACH EYE BID 07/26/16 Aripiprazole [Abilify] 10 mg PO DAILY 03/06/19 Pantoprazole Sodium 40 mg PO DAILY 03/06/19 Pramipexole Di-HCl [Mirapex] 1 mg PO DAILY 03/06/19 Alendronate Sodium [Fosamax] 70 mg PO SA 03/09/19 Atorvastatin Calcium [Lipitor] 20 mg PO DAILY 03/09/19 Calcium Carbonate/Vitamin D3 1 ea PO BID 03/09/19 [Oyster Shell 500-Vit D3 200 Tb] Carvedilol 25 mg PO BID 03/09/19 Cholecalciferol (Vitamin D3) 1,000 unit PO DAILY 03/09/19 [Vitamin D3] Citalopram [Celexa] 20 mg PO DAILY 03/09/19 Cyclobenzaprine HCl 10 mg PO BID PRN 03/09/19 Furosemide [Lasix] 40 mg PO DAILY 03/09/19 Potassium Chloride [Klor-Con M10] 20 meq PO BID 03/09/19 Trazodone HCl 100 mg PO QHS 03/09/19 Acetaminophen [Tylenol Tablet] 650 mg PO Q6H PRN PRN tab 03/12/19 gabapentin 300 mg capsule 300 mg PO QWEEK cap 04/08/19 oxycodone ER 9 mg capsule sprinkle 9 mg PO BID 04/08/19 extended release 12 hr(DON'T CRUSH) Past Medical History (Chronic Problems): Chronic Problems Cat bite involving extremity (Chronic) Ulcer of right lower leg (Chronic) Benzodiazepine dependence (Chronic) COPD (chronic obstructive pulmonary disease) case management patient (Chronic) Obstructive sleep apnea (Chronic) Anxiety (Chronic) Depression (Chronic) GERD (gastroesophageal reflux disease) (Chronic) Hyperlipidemia (Chronic) Morbid obesity (Chronic) Tobacco abuse (Chronic) Degenerative disc disease (Chronic) H/O aortic valve replacement (Chronic) HTN (hypertension) (Chronic) Opiate dependence (Chronic) Surgical History: cholecystectomy, - - AVR, right ankle surgery x2, hysterectomy x2, tonsillectomy Psychiatric History: Anxiety, Depression ASSISTANT COOK History: No pertinent ASSISTANT COOK history - *Family History Maternal Family History: Family History (Last Updated 04/08/19 @ 12:57 by Miah Llanes DO) Mother Hypertension Heart disease Diabetes CVA (cerebral vascular accident) History Items: Diabetes, - - from aneurysm, unknown type Paternal Family History: Family History (Last Updated 04/08/19 @ 12:57 by Miah Llanes DO) Mother Hypertension Heart disease Diabetes CVA (cerebral vascular accident) History Items: - - Denies known paternal medical history including cardiac hist ory. Lives: Alone Smoking Status: Former smoker Tobacco Use: Cigarettes Alcohol: None Drugs: None Review of Systems - Review of Systems General: Denies: Fever - No definitive review of systems available due to patient's intubated state., Night Sweats, Fatigue Cardiovascular: Denies: Chest Discomfort, Shortness of Breath, Orthopnea, PND, Peripheral Edema, Palpitations, Lightheadedness, Dizziness, Near Syncope, Syncope Respiratory: Denies: Cough, Sputum Production, Hemoptysis Gastrointestinal: Denies: Hematemesis, Hematochezia, Melena Genitourinary: Reports: Dysuria. Denies: Hematuria Skin: Denies: Rash Subjectve: Middle-aged lady intubated appears to be in some distress Objective: Vital Signs Temp Pulse Resp BP Pulse Ox 100.7 F H 128 H 34 H 98/74 99 05/13/19 15:00 05/13/19 17:38 05/13/19 17:38 05/13/19 17:33 05/13/19 16:00 Oxygen Delivery Method Mechanical Ventilator Weight: 288 lb 2.307 oz Body Mass Index (BMI) 45.2 Finger Stick Blood Glucose 180 Intake and Output for Last 24 Hours 05/11/19 05/12/19 05/13/19 23:59 23:59 23:59 Intake Total 3710.17 / 3710.17 Balance 3710.17 / 3710.17 General: Ill Appearing HEENT: PERRL, EOMI, Sclera Non Icteric Neck: Supple, Good ROM, No Lymph Node Enlargement Lungs: Clear to auscultation Cardiovascular: Irregular Rhythm, Normal S1, Normal S2, No Murmurs, No Rubs, No Gallops Vascular: No Carotid Bruits, Normal Femoral Pulses, Normal Radial Pulses, Normal Dorsalis Pedal Pulse, Normal Posterior Tibial Pulses Abdomen: Bowel Sounds Present, Soft, Non Tender, No HSM, No Organomegaly Extremities: No Cyanosis, No Clubbing, No edema Musculoskeletal: No Erythema Skin: No Rashes Lymphatic: No Lymph Node Enlargement Neurological: No Focal Motor or Sensory Deficit 05/13/19 10:16: pH 7.25 L, Bicarbonate Actual 16.4 L, POC Total CO2 18, Base Excess -11 L, O2 Saturation 97, ABG pCO2 37.8, ABG pO2 101 H, Gennaro Test NA 05/13/19 10:49: Urine Color Yellow, Urine Clarity Cloudy, Urine pH 6.0, Ur Specific [place] 1.015, Urine Protein 30 H, Urine Glucose (UA) Normal, Urine Ketones 5 H, Urine Occult Blood 250 H, Urine Nitrite Negative, Urine Bilirubin 1 H, Urine Urobilinogen 8 H, Ur Leukocyte Esterase 25 H, Urine RBC 0 SEEN, Urine WBC 0-5 SEEN 05/13/19 11:40: Lactic Acid 2.7 H 05/13/19 12:15: WBC 14.5 H, RBC 4.34, Hgb 13.3, Hct 40.7, MCV 93.8, MCH 30.6, MCHC 32.7, Plt Count 20 L*, MPV TNP, Immature Gran % (Auto) 2.100 H, Neut % (Auto) 87.5 H, Lymph % (Auto) 3.9 L, Josephine % (Auto) 5.4, Eos % (Auto) 1.0, Baso % (Auto) 0.1, Absolute Neuts (auto) 12.7 H, Nucleated RBC % 0.3 05/13/19 12:15: PT 15.4 H, INR 1.2, APTT 27.8 05/13/19 12:15: Sodium 141, Potassium 4.2, Chloride 109 H, Carbon Dioxide 19.0 L , Anion Gap 13, BUN 123 H*, Creatinine 3.99 H, Est GFR (MDRD) Af Amer 15 L, Est GFR (MDRD) Non-Af 12 L, BUN/Creatinine Ratio 30.8 H, Glucose 176 H, Calcium 7.8 L, Total Bilirubin 2.70 H, Troponin I 0.241 H 05/13/19 12:15: Phosphorus 6.2 H 05/13/19 12:15: Hemoglobin A1c 5.8 05/13/19 15:07: pH 7.37, Bicarbonate Actual 14.2 L, POC Total CO2 15, Base Excess -11 L, O2 Saturation 99, ABG pCO2 24.8 L, ABG pO2 136 H, Gennaro Test POS 05/13/19 16:55: Magnesium 2.4, Troponin I 0.219 H 05/13/19 16:55: Total Bilirubin 3.20 H, Direct Bilirubin 2.37 H, Indirect Bilirubin 0.80 05/13/19 16:55: Lactic Acid 2.2 H 05/13/19 16:55: Triglycerides 670 H Rhythm: EKG: ECHO: Stress Test: Cardiac Cath: PCI: CT Surgery: Holter monitor: EPS: PPM: CXR: Chest CT Scan: Assessment/Plan 1. Atrial fibrillation with rapid ventricular response rate. * It is not clear the duration of the above. My recommendation at this time however would be to attempt to slow down her heart rate to improve filling pressures as well as her blood pressure. I would agree with using intravenous amiodarone despite the fact that she is not anticoagulated. An echocardiogram was performed this afternoon which demonstrated overall preserved left ventricular systolic function estimated at 50% with septal hypokinesis and paradoxical septal motion. Over the course of the next few hours further recommendations will be made. * 2. Status post aortic valve replacement * Patient apparently has a history of aortic valve replacement and at this time my recommendation would be for us to continue with aggressive treatment with a ntibiotics. His aortic valve was not very well evaluated on the transthoracic echocardiogram. I do not see an indication for a transesophageal echocardiogram at this particular time. * Patient appears to be critically ill and supportive measures would be instituted including improving her acute renal failure. I will continue to follow with you. Thank you for allowing me to participate in the care of your patient. Please don't hesitate to call if any issues arise
[2019-05-13] MEDS: fentaNYL drip 100 ML 2.5 MCG IV (18:54)
[2019-05-13 18:56] LABS: Bedside Glucose 93 mg/dL (70-110)
[2019-05-13] MEDS: Acetaminophen 650 MG/20 ML UDC NG ×2 (18:57→23:46)
--- NOTE | 2019-05-13 19:35 | PCM.HP.STD ---
Problem List (1) Septic shock Status: Acute (2) Acute febrile illness Status: Acute Comment: source not yet identified (3) Rhabdomyolysis Status: Acute (4) ARF (acute renal failure) Status: Acute (5) Uremic encephalopathy Status: Acute (6) History of aortic valve replacement with bioprosthetic valve Status: Chronic (7) Tobacco dependence in remission Status: Chronic Comment: quit in 2018 after smoking 1 and 1/2 PPD for 40 years (8) Acute respiratory failure with hypoxia Status: Acute (9) Atrial fibrillation with rapid ventricular response Status: Acute (10) Thrombocytopenia Status: Acute (11) Dehydration Status: Acute (12) Cat bite involving extremity Status: Resolved (13) Cellulitis Status: Resolved (14) Ulcer of right lower leg Status: Resolved (15) Benzodiazepine dependence Status: Chronic (16) COPD (chronic obstructive pulmonary disease) case management patient Status: Chronic (17) Obstructive sleep apnea Status: Chronic Comment: complaint with CPAP per nephew but has not had a sleep study in many years and she has gained a lot of wt. (18) Anxiety Status: Chronic (19) Depression Status: Chronic Qualifiers: Depression Type: unspecified Qualified Code(s): F32.9 - Major depressive disorder, single episode, unspecified (20) GERD (gastroesophageal reflux disease) Status: Chronic Qualifiers: Esophagitis presence: esophagitis presence not specified Qualified Code(s): K21.9 - Gastro-esophageal reflux disease without esophagitis (21) Hyperlipidemia Status: Chronic Qualifiers: Hyperlipidemia type: unspecified Qualified Code(s): E78.5 - Hyperlipidemia, unspecified (22) Morbid obesity Status: Chronic (23) Degenerative disc disease Status: Chronic Qualifiers: Mid-cervical spinal level: unspecified (24) HTN (hypertension) Status: Chronic Qualifiers: Hypertension type: essential hypertension Qualified Code(s): I10 - Essential (primary) hypertension (25) Opiate dependence Status: Chronic (26) Abnormal LFTs Status: Acute (27) Metabolic acidosis Status: Acute (28) Lactic acidosis Status: Acute History of Present Illness Date of Admission: 05/13/19 Chief Complaint: found unresponive in her home....last seen about 24hours prior to admission and per her Nephew Mary who is POA she was her normal self at that time. The patient is a 64 year old F with a past medical history of hypertension, COPD, obstructive sleep apnea, anxiety/depression, GERD, hyperlipidemia, morbid obesity, tobacco dependence in remission, degenerative disc disease, chronic back pain, opiate dependence, benzodiazepine dependence, history of a bioprosthetic aortic valve replacement and gout who was brought to the ED at [facility] on 05/13/19 by squad after being found unresponsive lying by her bed by a friend. The pt could give no hx and she was identified by EMS by a piece of mail. I spoke with her Nephew Mary who is her POA and he tells me that she was seen on 05/12 by family and then stated she was OK then. Vital signs at presentation to the emergency room were temperature 96.9, pulse rate 168, blood pressure 129/91, respiratory rate 19. BP later dropped to 68/38 and she was given 3 L of normal saline with improvement in her blood pressure. She was intubated in the emergency department and sent to CT scan for a noncontrasted CT brain which showed chronic involutional changes only and no acute findings. The initial chest x-ray in the emergency department showed the tip of the ET tube to be in the right mainstem bronchus and it was withdrawn approximately 3 cm. The next chest x-ray showed the tip of the endotracheal tube to be 3 cm above the morena. There was chronic scarring in the left base and no acute findings. White blood cell count was elevated at 14.5 with 87% neutrophils. Hemoglobin was 13.3 and platelets were markedly decreased at 20,000. The MCV and MCHC were within normal limits. PT was mildly prolonged at 15.4 and the PTT was within normal limits. The initial blood gas on a 70% FiO2 with a tidal volume of 450, PEEP of 5 and a respiratory rate of 12 showed a pH of 7.25, PCO2 of 24 and a PO2 of 136. Serum bicarb is low at 19 and the BUN was 123 with a creatinine of 3.99. Creatinine on March 12, 2019 was 0.98. A random blood sugar was 176 and a hemoglobin A1c is 5.8. Lactic acid was elevated at 2.7 and the second lactic acid was 2.2. Total bilirubin was elevated at 2.7 with an AST of 241, ALT of 83, alkaline phosphatase of 247 and these LFT abnormalities are all new for her. The total creatine kinase was 3819. Troponin was elevated at 0.241. Albumin was markedly decreased at 1.8. UA had 0-5 WBCs per high-power field with 0 RBCs. Urine drug screen was positive for methamphetamine however the patient takes Wellbutrin and I suspect this is a false positive. Ethyl alcohol level was 3.0. An EKG showed atrial fibrillation with rapid ventricular response. Blood and urine cultures were sent from the emergency department. She was admitted to the ICU with a diagnosis of Severe sepsis( unknown source of infection), ARF with uremic encephalopathy, severe thrombocytopenia, acute hypoxic respiratory failure. Dr. Llanes was consulted and also Cardiology and nephrology. Hx was obtained from her nephew and review of old H&P's. Past Medical History Past Medical History (Chronic Problems): Chronic Problems History of aortic valve replacement with bioprosthetic valve (Chronic) Tobacco dependence in remission (Chronic) quit in 2018 after smoking 1 and 1/2 PPD for 40 years Benzodiazepine dependence (Chronic) COPD (chronic obstructive pulmonary disease) case management patient (Chronic) Obstructive sleep apnea (Chronic) complaint with CPAP per nephew but has not had a sleep study in many years and she has gained a lot of wt. Anxiety (Chronic) Depression (Chronic) GERD (gastroesophageal reflux disease) (Chronic) Hyperlipidemia (Chronic) Morbid obesity (Chronic) Degenerative disc disease (Chronic) HTN (hypertension) (Chronic) Opiate dependence (Chronic) Medical History: Medical History (Last Reviewed 05/13/19 @ 20:07 by Trupti Bagley DO) Benzodiazepine dependence (Chronic) F13.20 COPD (chronic obstructive pulmonary disease) case management patient (Chronic) [id number] Obstructive sleep apnea (Chronic) G47.33 complaint with CPAP per nephew but has not had a sleep study in many years and she has gained a lot of wt. Anxiety (Chronic) F41.9 Depression (Chronic) F32.9 GERD (gastroesophageal reflux disease) (Chronic) K21.9 Hyperlipidemia (Chronic) E78.5 Morbid obesity (Chronic) E66.01 Degenerative disc disease (Chronic) [id number] HTN (hypertension) (Chronic) I10 Opiate dependence (Chronic) F11.20 Cat bite involving extremity (Resolved) Cellulitis (Resolved) L03.90 Ulcer of right lower leg (Resolved) L97.919 Allergies Iodinated Contrast Media [CONTRASTS] Allergy (Verified 04/08/19 09:57) Swelling lidocaine [From Lidoderm] Allergy (Verified 04/08/19 09:57) Rash Home Medications: Ambulatory Orders Medication Instructions Recorded Aspirin E.C. [Ecotrin] 81 mg PO DAILY@0800 12/31/14 Fluticasone 0.05% [Flonase Nasal 2 spray NASAL QHS 12/31/14 [place]] Allopurinol [Zyloprim] 300 mg PO DAILY 03/20/16 Magnesium Oxide [Mag-Ox 400] 400 mg PO BID 05/22/16 Albuterol Inhaler [Ventolin Hfa] 1 - 2 puff INHALATION Q4H PRN PRN 07/26/16 Bupropion HCl [Bupropion HCl Sr] 300 mg PO DAILY 07/26/16 Cyclosporine [Restasis] 2 drp EACH EYE BID 07/26/16 Aripiprazole [Abilify] 10 mg PO DAILY 03/06/19 Pantoprazole Sodium 40 mg PO DAILY 03/06/19 Pramipexole Di-HCl [Mirapex] 1 mg PO DAILY 03/06/19 Alendronate Sodium [Fosamax] 70 mg PO SA 03/09/19 Atorvastatin Calcium [Lipitor] 20 mg PO DAILY 03/09/19 Calcium Carbonate/Vitamin D3 1 ea PO BID 03/09/19 [Oyster Shell 500-Vit D3 200 Tb] Carvedilol 25 mg PO BID 03/09/19 Cholecalciferol (Vitamin D3) 1,000 unit PO DAILY 03/09/19 [Vitamin D3] Citalopram [Celexa] 20 mg PO DAILY 03/09/19 Cyclobenzaprine HCl 10 mg PO BID PRN 03/09/19 Furosemide [Lasix] 40 mg PO DAILY 03/09/19 Potassium Chloride [Klor-Con M10] 20 meq PO BID 03/09/19 Trazodone HCl 100 mg PO QHS 03/09/19 Acetaminophen [Tylenol Tablet] 650 mg PO Q6H PRN PRN tab 03/12/19 gabapentin 300 mg capsule 300 mg PO QWEEK cap 04/08/19 oxycodone ER 9 mg capsule sprinkle 9 mg PO BID 04/08/19 extended release 12 hr(DON'T CRUSH) Surgical History: Surgical History (Last Reviewed 04/08/19 @ 09:59 by Jayshree Saunders) H/O aortic valve replacement (Chronic) Z95.2 Surgical History: cholecystectomy, - - AVR, right ankle surgery x2, hysterectomy x2, tonsillectomy Psychiatric History: Anxiety, Depression TRANSPORTATION AIDE History: No pertinent TRANSPORTATION AIDE history Lives: Alone, - - she has children but her nephew tells me that the children do not talk with her and he is the POA Smoking Status: Former smoker - she quit in 2018 but prior to that she smoked 1-1/2 packs of cigarettes daily for at least 40 years. Tobacco Use: Cigarettes Alcohol: None Drugs: None - *Family History Maternal Family History: Family History (Last Reviewed 05/13/19 @ 20:09 by Trupti Bagley DO) Mother Hypertension Heart disease Diabetes CVA (cerebral vascular accident) History Items: Diabetes, - - from aneurysm, unknown type Paternal Family History: Family History (Last Reviewed 05/13/19 @ 20:09 by Trupti Bagley DO) Mother Hypertension Heart disease Diabetes CVA (cerebral vascular accident) History Items: - - Denies known paternal medical history including cardiac history. Review of Systems Unable to obtain accurate/complete ROS d/t: pt is intubated and mechanically ventilated...could not obtain ROS VTE Information - Inpt Only VTE Present on Admission: No VTE Mechan Device Prophylaxis: SCD's, Knee High JOHN Hose VTE Pharm Prophylaxis ordered?: No Reason prophylaxis not ordered:: Medical Contraindication - severe thrombocytopenia Patient Problems: Active and Suspected Problems Acute respiratory failure with hypoxia (Acute) Atrial fibrillation with rapid ventricular response (Acute) Thrombocytopenia (Acute) Dehydration (Acute) Septic shock (Acute) Acute febrile illness (Acute) source not yet identified Rhabdomyolysis (Acute) ARF (acute renal failure) (Acute) Uremic encephalopathy (Acute) Abnormal LFTs (Acute) Metabolic acidosis (Acute) Lactic acidosis (Acute) - Physical Exam Vitals/I&O's: Vital Signs Temp Pulse Resp BP Pulse Ox 103.0 F H 129 H 40 H 87/73 L 90 05/13/19 18:30 05/13/19 18:55 05/13/19 18:55 05/13/19 18:30 05/13/19 18:55 Oxygen Delivery Method Mechanical Ventilator Weight: 288 lb 2.307 oz Body Mass Index (BMI) 45.2 Finger Stick Blood Glucose 180 Intake and Output for Last 24 Hours 10/21/19 10/22/19 10/23/19 23:59 23:59 23:59 Intake Total 4250.17 / 4250.17 Output Total 200 / 200 Balance 4050.17 / 4050.17 General: - - morbidly obese, seems strongly of urine, even from the mouth HEENT: Atraumatic, PERRLA, Normocephalic Oral: Dry Mucosa Neck: No Nodes, Trachea Midline, - - she has a cicatrix under the mandible on the R neck carotids had brisk upstroke but decreased pulse volume. No jugular vein distention. Lungs: Clear to auscultation, Diminished Cardiovascular: No murmurs, Irregular Rate, No rub noted - but the heart sounds are very distant and difficult to assess for rub or gallop, No Gallop, Tachycardic Abdomen: Soft, Hypoactive Bowel Sounds, Obese, - - no guarding with palpation Extremities: No clubbing, Cyanosis - of the toes and the fingernail beds., Diminished Peripheral Pulses, Edema, - - the hands and the feet are cold to the touch Skin: No rashes, - - she has a ulcer on the medial R great toe but there is no periwound erythema, purulent discharge or increased warmth to touch. Musculoskeletal: No Muscle Wasting Neurological: - - No facial asymmetry, opens her eyes when you call her name, not following commands Laboratory Results 05/13/19 10:16: Specimen Type ART, Sample Site R Brachial, pH 7.25 L, Bicarbonate Actual 16.4 L, POC Total CO2 18, Base Excess -11 L, O2 Saturation 97, O2 % 70, ABG pCO2 37.8, ABG pO2 101 H, Gennaro Test NA, Respiration Rate 12, O2 Delivery Device Vent, Minute Volume 5.00, Vent Mode A-C, Tidal Volume 450, POC PEEP 5, Blood Gas Notified Whom ED , Blood Gas Notified Time 1020 05/13/19 10:49: Urine Opiates Screen NEGATIVE, Urine Methadone Screen NEGATIVE, Ur Barbiturates Screen NEGATIVE, Ur Phencyclidine Scrn NEGATIVE, Ur Amphetamines Screen NEGATIVE, U Methamphetamin-MDMA POSITIVE H, U Benzodiazepines Scrn NEGATIVE, Urine Cocaine Screen NEGATIVE, U Cannabinoids Screen NEGATIVE, Ur Drug Screen Comment 05/13/19 10:49: Urine Color Yellow, Urine Clarity Cloudy, Urine pH 6.0, Ur Specific [place] 1.015, Urine Protein 30 H, Urine Glucose (UA) Normal, Urine Ketones 5 H, Urine Occult Blood 250 H, Urine Nitrite Negative, Urine Bilirubin 1 H, Urine Urobilinogen 8 H, Ur Leukocyte Esterase 25 H, Urine RBC 0 SEEN, Urine WBC 0-5 SEEN, Ur Squamous Epith Cells 0 SEEN, Urine Bacteria 0 SEEN, Urine Mucus 0 SEEN 05/13/19 11:40: Lactic Acid 2.7 H 05/13/19 12:15: WBC 14.5 H, RBC 4.34, Hgb 13.3, Hct 40.7, MCV 93.8, MCH 30.6, MCHC 32.7, RDW Std Deviation 57.0 H, RDW Coeff of Pierre 16.3 H, Plt Count 20 L*, MPV TNP, Immature Gran % (Auto) 2.100 H, Neut % (Auto) 87.5 H, Lymph % (Auto) 3.9 L, [place] % (Auto) 5.4, Eos % (Auto) 1.0, Baso % (Auto) 0.1, Absolute Neuts (auto) 12.7 H, Absolute Lymphs (auto) 0.56 L, Nucleated RBC % 0.3, Differential Comment , Diff Path Review May foll, Crenated Cell 1+ 05/13/19 12:15: PT 15.4 H, INR 1.2, APTT 27.8 05/13/19 12:15: Sodium 141, Potassium 4.2, Chloride 109 H, Carbon Dioxide 19.0 L, Anion Gap 13, BUN 123 H*, Creatinine 3.99 H, Estim Creat Clear Calc 14.22, Est GFR (MDRD) Af Amer 15 L, Est GFR (MDRD) Non-Af 12 L, BUN/Creatinine Ratio 30.8 H, Glucose 176 H, Calcium 7.8 L, Total Bilirubin 2.70 H, AST 241 H, ALT 83 H, Alkaline Phosphatase 247 H, Total Creatine Kinase 3819 H, Troponin I 0.241 H, Total Protein 6.0 L, Albumin 1.8 L, Globulin 4.2, Albumin/Globulin Ratio 0.4 L 05/13/19 12:15: Ethyl Alcohol 3.0 05/13/19 12:15: Phosphorus 6.2 H 05/13/19 12:15: Hemoglobin A1c 5.8 05/13/19 15:07: Specimen Type ART, Sample Site R Brachial, pH 7.37, Bicarbonate Actual 14.2 L, POC Total CO2 15, Base Excess -11 L, O2 Saturation 99, O2 % 55, ABG pCO2 24.8 L, ABG pO2 136 H, Gennaro Test POS, Respiration Rate 12, O2 Delivery Device Vent, Minute Volume 9.00, Vent Mode A-C, Tidal Volume 450, POC PEEP 5, Blood Gas Notified Whom ICU MD, Blood Gas Notified Time 1458 05/13/19 16:35: Direct Antiglob Test NEG w/POLYSPECIFIC 05/13/19 16:55: Magnesium 2.4, Troponin I 0.219 H 05/13/19 16:55: Total Bilirubin 3.20 H, Direct Bilirubin 2.37 H, Indirect Bilirubin 0.80, GGT 83 H, Lactate Dehydrogenase 528 H, C-React Prot Ext Range 190.00 H, Rheumatoid Factor < 10.0 05/13/19 16:55: Lactic Acid 2.2 H 05/13/19 16:55: Fibrinogen 851 H 05/13/19 16:55: ESR 67 H 05/13/19 16:55: GRAY Screen Pending, KASIA-1 Antibody Pending, SS-A/Ro IgG Antibody Pending, SS-B/La IgG Antibody Pending, Sm (Baxter) Antibody Pending, CAFETERIA ASSISTANT Antibody Pending, Scl-70 Scleroderma Ab Pending, Double Strand DNA Ab Pending, Centromere B Antibody Pending 05/13/19 16:55: Blood Type O POSITIVE 05/13/19 16:55: Triglycerides 670 H 05/13/19 17:55: Haptoglobin Pending 05/13/19 18:49: POC Glucose 93 Current Medications Acetaminophen (Tylenol Liquid) 650 mg NG Q6 [facility] Last Admin: 05/13/19 18:57 Dose: 650 mg Documented by: Dextrose (D50w Syringe) 0 gm IV X1 PRN; Protocol PRN Reason: Hypoglycemia Famotidine (Pepcid) 20 mg PO DAILY [facility] Glucagon () 1 mg IM .X1 PRN PRN Reason: Hypoglycemia Propofol (Diprivan) 1,000 mg in 100 mls @ 8.106 mls/hr CONT INF .Q12H [facility]; Protocol Last Admin: 05/13/19 14:38 Dose: Not Given Documented by: Norepinephrine Bitartrate 8 mg (/ Sodium Chloride) 250 mls @ 9.375 mls/hr CONT INF .[id number] [facility]; Protocol Amiodarone HCl 360 mg/ (Dextrose) 200 mls @ 33.333 mls/hr CONT INF .Q6H [facility] Stop: 05/13/19 21:29 Last Infusion: 05/13/19 17:33 Dose: 1 mg/min, 33.3 mls/hr Documented by: Amiodarone HCl 360 mg/ (Dextrose) 200 mls @ 16.667 mls/hr CONT INF .Q12H [facility] Stop: 05/14/19 15:29 Vancomycin IV Pharmacy to Dose (1 ea/ Sodium Chloride) 500 mls @ 250 mls/hr IV PRN PRN; Protocol PRN Reason: Rx to Dose Piperacillin Sod/Tazobactam (Sod 3.375 gm/ Sodium Chloride) 50 mls @ 12.5 mls/hr IV Q12 [facility] Last Admin: 05/13/19 17:34 Dose: 12.5 mls/hr Documented by: Fentanyl () 100 mls @ 2.5 mls/hr IV UD [facility]; Protocol Last Admin: 05/13/19 18:54 Dose: 25 mcg/hr, 2.5 mls/hr Documented by: Insulin Human Lispro (Humalog Kwikpen (Bkc)) 0 unit SC Q6 [facility]; Protocol Last Admin: 05/13/19 18:56 Dose: Not Given Documented by: Ondansetron HCl (Zofran) 4 mg IV Q8H PRN PRN PRN Reason: NAUSEA/VOMITING Sodium Chloride () 10 - 40 ml IV UD PRN PRN Reason: Multilumen/Santos Flush Sodium Chloride (0.9% Nacl (Sterile) Posiflush) 10 - 40 ml IV UD PRN PRN Reason: Port access or dressing change Sodium Chloride () 10 - 40 ml IV UD PRN PRN Reason: SALINE FLUSH Assessment/Plan All Active Problems Acute respiratory failure with hypoxia (Acute) Atrial fibrillation with rapid ventricular response (Acute) Thrombocytopenia (Acute) Dehydration (Acute) Septic shock (Acute) Acute febrile illness (Acute) Rhabdomyolysis (Acute) ARF (acute renal failure) (Acute) Uremic encephalopathy (Acute) Abnormal LFTs (Acute) Metabolic acidosis (Acute) Lactic acidosis (Acute) Cat bite involving extremity (Resolved) Cellulitis (Resolved) Dysphagia (Resolved) Ulcer of right lower leg (Resolved) Day #1 Zosyn and vancomycin Impressions 1. septic shock - central line inserted L IJ. Levophed ordered for MAP less than 65. Started on brought spectrum antibiotics. Cultures ordered. No source of infection identified. The abdomen has hypoactive BS. She has had a prior cholecystectomy. Triglycerides today are elevated at 670 and she could conceivably have necrotic pancreatitis or a intraabdominal abscess or diverticulitis etc. Will order a CT scan of the abd and the pelvis with oral contrast only. 2. acute hypoxic respiratory failure - intubated and mechanically ventilated. Will prescribe fentanyl for sedation because the blood pressure is low and propofol is not indicated at this time. Dr. Llanes has been consulted to manage the ventilator and to participate in management of this complicated patient. 3. Atrial fibrillation with rapid ventricular response - Dig 500 mcg given and orders for an amiodarone infusion put in. ECHO ordered. D/W Dr. San. 4. Acute renal failure-etiology unknown 5. Severe thrombocytopenia-in conjunction with new abnormal LFTs need to consider hemolytic uremic syndrome. LDH, haptoglobin, Walt and direct and indirect bili ordered. May be due to DIC? or sepsis? Fibrinogen ordered. Transfuse a a 5 pk of random platelets stat. Watch the plts closely with Zosyn. No pharmacologic prophylaxis for DVT due to high risk for bleeding. Prophylactic H2 blockers provided. SCDs and JOHN hose ordered. 6. Uremic/toxic encephalopathy 7. Rhabdomyolysis-continue IV fluids 8. hx of anxiety/depression and chronic benzo and narcotic dependence - consider OD or suicide attempt. she has not had a sleep study in a long time and her nephew tells me that she has gained a lot of weight......likely the CPAP is not effective. 9. History of a bioprosthetic mitral valve replacement 10. Hypertension, hyperlipidemia, obstruct of sleep apnea, GERD, chronic back pain, morbid obesity complicate care, management and prognosis CODE STATUS: Discussed code status at length with her nephew Trell who is the power of educator senior clinical including the difference between FULL CODE, DNR CCA and DNR CC status. All questions were answered. An order for full code was entered into the computer. A total of 20 minutes face to face time was devoted to advanced care planning. Mary has discussed code status with her in the past and she wants to live as long as she can to see her grandchildren D/W Dr. Llanes and with Dr. San. She is non-oliguric at this time. Code Visit Inpatient E&M: 48405 Init Hosp L3 Procedures: 43782 Advncd Care Plan 30 Min
--- NOTE | 2019-05-13 19:47 | CT_ITS ---
STUDY: CT ABDOMEN AND PELVIS WITHOUT CONTRAST REASON FOR EXAM: Female, 64 years old. Septic shock. Abnormal liver function test. RADIATION DOSAGE (If Supplied By Facility): CTDIvol = ( 34.45 ) mGy, DLP = ( 1833.45 ) mGycm TECHNIQUE: Transaxial images were obtained from the dome of the diaphragm to the symphysis pubis without oral contrast, and without intravenous contrast. Sagittal and coronal images were reconstructed. Individualized dose optimization techniques were used for this CT. COMPARISON: None. FINDINGS: Bilateral lower lung consolidation. There are sternotomy wires. There is aortic valve prosthesis. Normal liver. There are surgical clips in the gallbladder fossa consistent with a prior cholecystectomy. Normal spleen. There is diffuse atrophy of the pancreas. Normal bilateral adrenal glands. Normal right kidney. Normal left kidney. Feeding tube extends to the stomach. Normal small intestine. There are multiple colonic diverticula consistent with diverticulosis. The appendix is visualized and appears normal. There is diffuse atherosclerotic calcification of the abdominal aorta, with a 4.5 cm infrarenal aneurysm. Normal inferior vena cava. Normal retroperitoneum. Jarrell catheter in the urinary bladder. There is atrophy of the uterus. There is no free fluid in the abdomen or pelvis. There is a umbilical hernia containing fat. T11 compression fracture with previous kyphoplasty. CT/Abdomen/Pel W ORAL Cont Only IMPRESSION: Infrarenal abdominal aortic aneurysm. No rupture or periaortic collection. Colonic diverticulosis. No obstruction. Bilateral lower lung infiltrates. Electronically Signed: Toi Saenz MD at 23:09 EDT , Service support ,
[2019-05-13] MEDS: 0.9% Saline Lock 10 ML Syringe IV ×3 (20:00→23:56)
[2019-05-13 20:35] LABS: Lipase 460 U/L (73-393); Uric Acid 9.1 mg/dL (2.6-6.0)
[2019-05-13 21:08] LABS: Reflex Lactate? Y
[2019-05-13] MEDS: Chlorhexidine 15 ML PO (21:38)
[2019-05-13 21:50] LABS: Lactic Acid 1.7 mmol/L (0.4-2.0)
[2019-05-13 22:38] LABS: M R Staph aureus DNA By PCR Negative (Negative); Probe Check PASS; Specimen Processing Control PASS
--- NOTE | 2019-05-13 23:36 | NURSING ---
Respiratory attempted to place an arterial line and were unsuccessful at this time.
[2019-05-13] MEDS: Dextrose 50%-Water 25 GM/50 ML DISP.SYRIN IV (23:56)
[2019-05-14] VITALS (42 sets, daily range): BP systolic 83–150; BP diastolic 56–103; PULSE 94–122; RESP 12–36; TEMP 37.1–39.3; O2SAT 91–100
[2019-05-14 00:06] LABS: Bedside Glucose 55 mg/dL (70-110)
[2019-05-14 00:26] LABS: Bedside Glucose 33 mg/dL (70-110)
--- NOTE | 2019-05-14 00:29 | NURSING ---
Blood sugar ran low on the accu check machine, so a blood draw was performed to confirm.
[2019-05-14 00:36] LABS: Base Excess -12 mmol/L (-2 to +2); Bicarbonate 13.8 mmol/L (22-26); Blood Gas Specimen Type ART; FI02 55; Mode A-C; O2 Delivery Device Vent; PEEP 5; PO2 103 mmHG (75-100); RR 12; SITE R Brachial; SO2 98 % (95-99); Time Given 28; Total Carbon Dioxide 15 mmol/L; Vt 450; pCO2 26.7 mmHg (35-45); pH 7.32 (7.35-7.45)
[2019-05-14 00:46] LABS: Glucose 241 mg/dL (74-106)
[2019-05-14 04:55] LABS: Mean Corp Hgb Conc 32.5 g/dL (32-36); Mean Corpuscular Volume 92.2 fL (81-99); POSITIVE COUNT YES; POSITIVE MORPHOLOGY YES; RBC Distribution Width CV 16.3 % (11.6-14.6); RBC Distribution Width SD 55.4 fl (35.1-43.9); Red Blood Count 4.34 M/mm3 (4.2-5.4); White Blood Count 18.5 K/mm3 (4.4-11.0)
[2019-05-14 04:59] LABS: Differential Indicated MANUAL DIFF
[2019-05-14 05:00] LABS: Platelet Count 21 K/mm3 (150-450)
[2019-05-14 05:02] LABS: International Normalized Ratio 1.2; Prothrombin Time (Protime)PT. 15.1 SECONDS (11.7-14.9)
[2019-05-14] MEDS: Nystatin Powder 15gm Bottle 1 APPLIC TOPICAL ×3 (05:05→21:40)
[2019-05-14] MEDS: Menthol/Lanolin/Calamine/Znox 113 GM Tube 1 APPLIC TOPICAL ×3 (05:05→21:41)
[2019-05-14] MEDS: CHLORHEXIDINE GLUC 2% CLOTH 1 EACH TOWELETTE TOPICAL (05:06)
[2019-05-14] MEDS: 0.9% Saline Lock 10 ML Syringe IV ×2 (05:06→09:46)
[2019-05-14] MEDS: Acetaminophen 650 MG/20 ML UDC NG ×4 (05:07→23:24)
[2019-05-14] MEDS: Insulin Lispro 100 UNIT/ML INSULN.PEN SC ×3 (05:22→23:24)
[2019-05-14 05:26] LABS: Bedside Glucose 194 mg/dL (70-110)
[2019-05-14 05:34] LABS: Lymphocyte 8 % (19-41); Monocyte 4 % (0-10); Neutrophil-Band 2 % (0-5); Neutrophil-Segmented 86 % (47-70); Nucleated Red Bld Cells,Manual 1 % (0-5); Total Cells Counted 100 (MANUAL DIFF)
[2019-05-14 05:35] LABS: Red Cell Morphology NORM C+C NORMAL (NORM C&C)
[2019-05-14 05:36] LABS: Platelet Estimate MKD DEC (ADEQ); Platelet Morphology LARGE
[2019-05-14 05:38] LABS: Absolute Lymphocyte Count 1.48 X10^3/uL (0.83-4.51); Absolute Neutrophil Count 16.3 X10^3/uL (2.0-7.7)
[2019-05-14 05:42] LABS: ALB/GLOB Ratio 0.4 RATIO (0.9-2.4); AST(SGOT) 496 U/L (15-37); Alanine Aminotransfer ALT/SGPT 164 U/L (13-56); Albumin, Serum 1.8 g/dL (3.2-5.0); Alkaline Phosphatase 308 U/L (45-117); Anion Gap 10 (5-15); BUN 125 mg/dL (7-18); Calcium,Total 7.3 mg/dL (8.5-10.1); Chloride 111 mmol/L (98-107); Creatinine, Serum 2.91 mg/dL (0.55-1.02); EST Glomerular Filtration Rate 17 mL/min (>60); Est Glom Filt Rate - Afr Amer 21 mL/min (>60); Estimated Creatinine Clearance 18.76 ml/min; Glucose 226 mg/dL (74-106); Magnesium 2.3 mg/dL (1.6-2.6); Phosphorus 4.7 mg/dL (2.5-4.9); Potassium 3.7 mmol/L (3.5-5.1); Protein, Total 5.8 g/dL (6.4-8.2); Sodium Level 141 mmol/L (136-145)
--- NOTE | 2019-05-14 05:55 | RAD_ITS ---
STUDY: X-RAY CHEST REASON FOR EXAM: Female, 64 years old. Shortness of breath. TECHNIQUE: Single AP portable view of the chest. COMPARISON: 05/13/2019. FINDINGS: The endotracheal tube has the tip 1.5 cm above morena. The nasogastric tube has the tip below the diaphragm but not included in the [id number]. There is a left-sided IJ central line with the tip in the distal SVC/right atrial junction. The lungs are underexpanded with vascular crowding. There is mild right perihilar atelectasis. There are patchy opacities within the left mid lower lung parenchyma suggestive of infiltrates versus atelectasis. There is mild left effusion. Midline sternotomy wires demonstrated. There is mild cardiomegaly. Normal mediastinum and juan a. Normal visualized pulmonary arteries. There is atherosclerotic calcification of the aortic arch with tortuosity. There is demineralization of the osseous structures. There is evidence of vertebroplasty at the lower thoracic/upper lumbar spine. Normal visualized ribs, clavicles, and shoulders. There is no demonstrated abnormality of the visualized soft tissue structures of the upper abdomen. RAD/Chest 1 View (Portable) IMPRESSION: Left mid lower lung field atelectasis versus pneumonia with mild left effusion. Mild right perihilar atelectasis. Overall exam is stable or slightly worsened on the left compared to recent study. Lines and tubes as described above. Electronically Signed: Sara Jesus MD at 4:07 EDT , Service support ,
--- NOTE | 2019-05-14 06:17 | PCM.PN.INT ---
Subjective: The patient was seen and examined at the bedside this morning. Events from the last 24 hours have been reviewed. Although the patient is currently afebrile, she did spike a fever overnight with a T-max of 103.3 ?F. She is currently on low-dose levo fed at 5 mcg to maintain hemodynamic stability. She remains on assist control mode mechanical ventilation with an FiO2 requirement of 55%. The patient is currently documented to be overall net +4.8 L for the admission. She remains uremic with a BUN of 125. However, creatinine has improved to 2.91. She remains thrombocytopenic with a platelet count of 21,000. AST and ALT have worsened overnight. The patient's mentation appears to be slowly improving. Objective: The patient's most recent lab work, culture data and imaging studies have all been personally reviewed. Initial CT head revealed no acute intracranial process. CT abdomen/pelvis revealed colonic diverticulosis without obstruction along with incidental bilateral lower lung infiltrates. Surface echocardiogram revealed normal LV size and function with an ejection fraction of 50%. Initial blood cultures dated May 13 were positive for the presence of gram-negative rods. Sputum and urine cultures are currently pending. General: - - Intubated, minimally sedated and mechanically ventilated. HEENT: Atraumatic, PERRLA, Normocephalic Oral: Moist Mucosa, - - Endotracheal and OG tubes currently in place. Neck: Supple, No Nodes, Trachea Midline, - - Large neck circumference with redundant soft tissue. Left IJ central venous catheter in place. Lungs: No rhonchi, No wheeze, No rales, Diminished Cardiovascular: Normal S1, Normal S2, No murmurs, Irregular Rate Abdomen: Bowel Sounds Present, Soft, Non Tender, Obese Extremities: No clubbing, Cool, Cyanosis, Diminished Peripheral Pulses Skin: - - Mottling of skin noted. Musculoskeletal: No Tenderness to Palpation of Joints or Extremities Lymphatic: No Cervical, Supraclavicular, or Inguinal Adenopathy Neurological: - - No focal neurological deficits. Opens eyes to verbal stimulation and appears to track. Vital Signs Temp Pulse Resp BP Pulse Ox 98.8 F 109 H 22 H 115/82 H 98 05/14/19 06:00 05/14/19 06:00 05/14/19 06:00 05/14/19 06:00 05/14/19 06:00 Oxygen Delivery Method Mechanical Ventilator Weight: 296 lb 1.293 oz Body Mass Index (BMI) 45.2 Finger Stick Blood Glucose 180 Intake and Output for Last 24 Hours 05/12/19 05/13/19 05/14/19 23:59 23:59 23:59 Intake Total 5138.45 / 5247.09 460.24 / 460.24 Output Total 550 / 550 250 / 250 Balance 4588.45 / 4697.09 210.24 / 210.24 Labs (Last 48 Hours) 05/13/19 05/13/19 05/13/19 10:16 10:49 10:49 WBC RBC Hgb Hct MCV MCH MCHC RDW Std Deviation RDW Coeff of Pierre Plt Count MPV Immature Gran % (Auto) Neut % (Auto) Lymph % (Auto) Towner % (Auto) Eos % (Auto) Baso % (Auto) Absolute Neuts (auto) Absolute Lymphs (auto) Total Counted Neutrophils % (Manual) Band Neutrophils % Lymphocytes % (Manual) Monocytes % (Manual) Nucleated RBC % Nucleated RBCs/100 WBC Differential Comment Diff Path Review Platelet Estimate Plt Morphology Comment RBC Morphology Crenated Cell ESR Haptoglobin PT INR APTT Fibrinogen Specimen Type ART Sample Site R Brachial pH 7.25 L Bicarbonate Actual 16.4 L POC Total CO2 18 Base Excess -11 L O2 Saturation 97 O2 % 70 ABG pCO2 37.8 ABG pO2 101 H Gennaro Test NA Respiration Rate 12 O2 Delivery Device Vent Minute Volume 5.00 Vent Mode A-C Tidal Volume 450 POC PEEP 5 Blood Gas Notified Whom ED Blood Gas Notified Time 1020 Sodium Potassium Chloride Carbon Dioxide Anion Gap BUN Creatinine Estim Creat Clear Calc Est GFR (MDRD) Af Amer Est GFR (MDRD) Non-Af BUN/Creatinine Ratio Glucose Hemoglobin A1c Lactic Acid Uric Acid Calcium Phosphorus Magnesium Total Bilirubin Direct Bilirubin Indirect Bilirubin GGT AST ALT Alkaline Phosphatase Lactate Dehydrogenase Total Creatine Kinase Troponin I C-React Prot Ext Range Total Protein Albumin Globulin Albumin/Globulin Ratio Triglycerides Lipase Urine Color Yellow Urine Clarity Cloudy Urine pH 6.0 Ur Specific Debord 1.015 Urine Protein 30 H Urine Glucose (UA) Normal Urine Ketones 5 H Urine Occult Blood 250 H Urine Nitrite Negative Urine Bilirubin 1 H Urine Urobilinogen 8 H Ur Leukocyte Esterase 25 H Urine RBC 0 SEEN Urine WBC 0-5 SEEN Ur Squamous Epith Cells 0 SEEN Urine Bacteria 0 SEEN Urine Mucus 0 SEEN Urine Opiates Screen NEGATIVE Urine Methadone Screen NEGATIVE Ur Barbiturates Screen NEGATIVE Ur Phencyclidine Scrn NEGATIVE Ur Amphetamines Screen NEGATIVE U Methamphetamin-MDMA POSITIVE H U Benzodiazepines Scrn NEGATIVE Urine Cocaine Screen NEGATIVE U Cannabinoids Screen NEGATIVE Ur Drug Screen Comment Ethyl Alcohol Rheumatoid Factor GRAY Screen KASIA-1 Antibody SS-A/Ro IgG Antibody SS-B/La IgG Antibody Sm (Baxter) Antibody CLINICAL SOCIAL WORK THERAPIST Antibody Scl-70 Scleroderma Ab Double Strand DNA Ab Centromere B Antibody MRSA (PCR) POC Glucose Blood Type Direct Antiglob Test 05/13/19 05/13/19 05/13/19 11:40 12:15 12:15 WBC 14.5 H RBC 4.34 Hgb 13.3 Hct 40.7 MCV 93.8 MCH 30.6 MCHC 32.7 RDW Std Deviation 57.0 H RDW Coeff of Pierre 16.3 H Plt Count 20 L* MPV TNP Immature Gran % (Auto) 2.100 H Neut % (Auto) 87.5 H Lymph % (Auto) 3.9 L Towner % (Auto) 5.4 Eos % (Auto) 1.0 Baso % (Auto) 0.1 Absolute Neuts (auto) 12.7 H Absolute Lymphs (auto) 0.56 L Total Counted Neutrophils % (Manual) Band Neutrophils % Lymphocytes % (Manual) Monocytes % (Manual) Nucleated RBC % 0.3 Nucleated RBCs/100 WBC Differential Comment Diff Path Review May foll Platelet Estimate Plt Morphology Comment RBC Morphology Crenated Cell 1+ ESR Haptoglobin PT 15.4 H INR 1.2 APTT 27.8 Fibrinogen Specimen Type Sample Site pH Bicarbonate Actual POC Total CO2 Base Excess O2 Saturation O2 % ABG pCO2 ABG pO2 Gennaro Test Respiration Rate O2 Delivery Device Minute Volume Vent Mode Tidal Volume POC PEEP Blood Gas Notified Whom Blood Gas Notified Time Sodium Potassium Chloride Carbon Dioxide Anion Gap BUN Creatinine Estim Creat Clear Calc Est GFR (MDRD) Af Amer Est GFR (MDRD) Non-Af BUN/Creatinine Ratio Glucose Hemoglobin A1c Lactic Acid 2.7 H Uric Acid Calcium Phosphorus Magnesium Total Bilirubin Direct Bilirubin Indirect Bilirubin GGT AST ALT Alkaline Phosphatase Lactate Dehydrogenase Total Creatine Kinase Troponin I C-React Prot Ext Range Total Protein Albumin Globulin Albumin/Globulin Ratio Triglycerides Lipase Urine Color Urine Clarity Urine pH Ur Specific Debord Urine Protein Urine Glucose (UA) Urine Ketones Urine Occult Blood Urine Nitrite Urine Bilirubin Urine Urobilinogen Ur Leukocyte Esterase Urine RBC Urine WBC Ur Squamous Epith Cells Urine Bacteria Urine Mucus Urine Opiates Screen Urine Methadone Screen Ur Barbiturates Screen Ur Phencyclidine Scrn Ur Amphetamines Screen U Methamphetamin-MDMA U Benzodiazepines Scrn Urine Cocaine Screen U Cannabinoids Screen Ur Drug Screen Comment Ethyl Alcohol Rheumatoid Factor GRAY Screen KASIA-1 Antibody SS-A/Ro IgG Antibody SS-B/La IgG Antibody Sm (Baxter) Antibody CLINICAL SOCIAL WORK THERAPIST Antibody Scl-70 Scleroderma Ab Double Strand DNA Ab Centromere B Antibody MRSA (PCR) POC Glucose Blood Type Direct Antiglob Test 05/13/19 05/13/19 05/13/19 12:15 12:15 12:15 WBC RBC Hgb Hct MCV MCH MCHC RDW Std Deviation RDW Coeff of Pierre Plt Count MPV Immature Gran % (Auto) Neut % (Auto) Lymph % (Auto) Towner % (Auto) Eos % (Auto) Baso % (Auto) Absolute Neuts (auto) Absolute Lymphs (auto) Total Counted Neutrophils % (Manual) Band Neutrophils % Lymphocytes % (Manual) Monocytes % (Manual) Nucleated RBC % Nucleated RBCs/100 WBC Differential Comment Diff Path Review Platelet Estimate Plt Morphology Comment RBC Morphology Crenated Cell ESR Haptoglobin PT INR APTT Fibrinogen Specimen Type Sample Site pH Bicarbonate Actual POC Total CO2 Base Excess O2 Saturation O2 % ABG pCO2 ABG pO2 Gennaro Test Respiration Rate O2 Delivery Device Minute Volume Vent Mode Tidal Volume POC PEEP Blood Gas Notified Whom Blood Gas Notified Time Sodium 141 Potassium 4.2 Chloride 109 H Carbon Dioxide 19.0 L Anion Gap 13 BUN 123 H* Creatinine 3.99 H Estim Creat Clear Calc 14.22 Est GFR (MDRD) Af Amer 15 L Est GFR (MDRD) Non-Af 12 L BUN/Creatinine Ratio 30.8 H Glucose 176 H Hemoglobin A1c Lactic Acid Uric Acid Calcium 7.8 L Phosphorus 6.2 H Magnesium Total Bilirubin 2.70 H Direct Bilirubin Indirect Bilirubin GGT AST 241 H ALT 83 H Alkaline Phosphatase 247 H Lactate Dehydrogenase Total Creatine Kinase 3819 H Troponin I 0.241 H C-React Prot Ext Range Total Protein 6.0 L Albumin 1.8 L Globulin 4.2 Albumin/Globulin Ratio 0.4 L Triglycerides Lipase Urine Color Urine Clarity Urine pH Ur Specific Debord Urine Protein Urine Glucose (UA) Urine Ketones Urine Occult Blood Urine Nitrite Urine Bilirubin Urine Urobilinogen Ur Leukocyte Esterase Urine RBC Urine WBC Ur Squamous Epith Cells Urine Bacteria Urine Mucus Urine Opiates Screen Urine Methadone Screen Ur Barbiturates Screen Ur Phencyclidine Scrn Ur Amphetamines Screen U Methamphetamin-MDMA U Benzodiazepines Scrn Urine Cocaine Screen U Cannabinoids Screen Ur Drug Screen Comment Ethyl Alcohol 3.0 Rheumatoid Factor GRAY Screen KASIA-1 Antibody SS-A/Ro IgG Antibody SS-B/La IgG Antibody Sm (Baxter) Antibody CLINICAL SOCIAL WORK THERAPIST Antibody Scl-70 Scleroderma Ab Double Strand DNA Ab Centromere B Antibody MRSA (PCR) POC Glucose Blood Type Direct Antiglob Test 05/13/19 05/13/19 05/13/19 12:15 15:07 16:35 WBC RBC Hgb Hct MCV MCH MCHC RDW Std Deviation RDW Coeff of Pierre Plt Count MPV Immature Gran % (Auto) Neut % (Auto) Lymph % (Auto) Towner % (Auto) Eos % (Auto) Baso % (Auto) Absolute Neuts (auto) Absolute Lymphs (auto) Total Counted Neutrophils % (Manual) Band Neutrophils % Lymphocytes % (Manual) Monocytes % (Manual) Nucleated RBC % Nucleated RBCs/100 WBC Differential Comment Diff Path Review Platelet Estimate Plt Morphology Comment RBC Morphology Crenated Cell ESR Haptoglobin PT INR APTT Fibrinogen Specimen Type ART Sample Site R Brachial pH 7.37 Bicarbonate Actual 14.2 L POC Total CO2 15 Base Excess -11 L O2 Saturation 99 O2 % 55 ABG pCO2 24.8 L ABG pO2 136 H Gennaro Test POS Respiration Rate 12 O2 Delivery Device Vent Minute Volume 9.00 Vent Mode A-C Tidal Volume 450 POC PEEP 5 Blood Gas Notified Whom ICU Blood Gas Notified Time 1458 Sodium Potassium Chloride Carbon Dioxide Anion Gap BUN Creatinine Estim Creat Clear Calc Est GFR (MDRD) Af Amer Est GFR (MDRD) Non-Af BUN/Creatinine Ratio Glucose Hemoglobin A1c 5.8 Lactic Acid Uric Acid Calcium Phosphorus Magnesium Total Bilirubin Direct Bilirubin Indirect Bilirubin GGT AST ALT Alkaline Phosphatase Lactate Dehydrogenase Total Creatine Kinase Troponin I C-React Prot Ext Range Total Protein Albumin Globulin Albumin/Globulin Ratio Triglycerides Lipase Urine Color Urine Clarity Urine pH Ur Specific Debord Urine Protein Urine Glucose (UA) Urine Ketones Urine Occult Blood Urine Nitrite Urine Bilirubin Urine Urobilinogen Ur Leukocyte Esterase Urine RBC Urine WBC Ur Squamous Epith Cells Urine Bacteria Urine Mucus Urine Opiates Screen Urine Methadone Screen Ur Barbiturates Screen Ur Phencyclidine Scrn Ur Amphetamines Screen U Methamphetamin-MDMA U Benzodiazepines Scrn Urine Cocaine Screen U Cannabinoids Screen Ur Drug Screen Comment Ethyl Alcohol Rheumatoid Factor GRAY Screen KASIA-1 Antibody SS-A/Ro IgG Antibody SS-B/La IgG Antibody Sm (Baxter) Antibody CLINICAL SOCIAL WORK THERAPIST Antibody Scl-70 Scleroderma Ab Double Strand DNA Ab Centromere B Antibody MRSA (PCR) POC Glucose Blood Type Direct Antiglob Test NEG w/POLYSPECIFIC 05/13/19 05/13/19 05/13/19 16:55 16:55 16:55 WBC RBC Hgb Hct MCV MCH MCHC RDW Std Deviation RDW Coeff of Pierre Plt Count MPV Immature Gran % (Auto) Neut % (Auto) Lymph % (Auto) Towner % (Auto) Eos % (Auto) Baso % (Auto) Absolute Neuts (auto) Absolute Lymphs (auto) Total Counted Neutrophils % (Manual) Band Neutrophils % Lymphocytes % (Manual) Monocytes % (Manual) Nucleated RBC % Nucleated RBCs/100 WBC Differential Comment Diff Path Review Platelet Estimate Plt Morphology Comment RBC Morphology Crenated Cell ESR Haptoglobin PT INR APTT Fibrinogen Specimen Type Sample Site pH Bicarbonate Actual POC Total CO2 Base Excess O2 Saturation O2 % ABG pCO2 ABG pO2 Gennaro Test Respiration Rate O2 Delivery Device Minute Volume Vent Mode Tidal Volume POC PEEP Blood Gas Notified Whom Blood Gas Notified Time Sodium Potassium Chloride Carbon Dioxide Anion Gap BUN Creatinine Estim Creat Clear Calc Est GFR (MDRD) Af Amer Est GFR (MDRD) Non-Af BUN/Creatinine Ratio Glucose Hemoglobin A1c Lactic Acid 2.2 H Uric Acid Calcium Phosphorus Magnesium 2.4 Total Bilirubin 3.20 H Direct Bilirubin 2.37 H Indirect Bilirubin 0.80 GGT 83 H AST ALT Alkaline Phosphatase Lactate Dehydrogenase 528 H Total Creatine Kinase Troponin I 0.219 H C-React Prot Ext Range 190.00 H Total Protein Albumin Globulin Albumin/Globulin Ratio Triglycerides Lipase Urine Color Urine Clarity Urine pH Ur Specific Debord Urine Protein Urine Glucose (UA) Urine Ketones Urine Occult Blood Urine Nitrite Urine Bilirubin Urine Urobilinogen Ur Leukocyte Esterase Urine RBC Urine WBC Ur Squamous Epith Cells Urine Bacteria Urine Mucus Urine Opiates Screen Urine Methadone Screen Ur Barbiturates Screen Ur Phencyclidine Scrn Ur Amphetamines Screen U Methamphetamin-MDMA U Benzodiazepines Scrn Urine Cocaine Screen U Cannabinoids Screen Ur Drug Screen Comment Ethyl Alcohol Rheumatoid Factor < 10.0 GRAY Screen KASIA-1 Antibody SS-A/Ro IgG Antibody SS-B/La IgG Antibody Sm (Baxter) Antibody CLINICAL SOCIAL WORK THERAPIST Antibody Scl-70 Scleroderma Ab Double Strand DNA Ab Centromere B Antibody MRSA (PCR) POC Glucose Blood Type Direct Antiglob Test 05/13/19 05/13/19 05/13/19 16:55 16:55 16:55 WBC RBC Hgb Hct MCV MCH MCHC RDW Std Deviation RDW Coeff of Pierre Plt Count MPV Immature Gran % (Auto) Neut % (Auto) Lymph % (Auto) Towner % (Auto) Eos % (Auto) Baso % (Auto) Absolute Neuts (auto) Absolute Lymphs (auto) Total Counted Neutrophils % (Manual) Band Neutrophils % Lymphocytes % (Manual) Monocytes % (Manual) Nucleated RBC % Nucleated RBCs/100 WBC Differential Comment Diff Path Review Platelet Estimate Plt Morphology Comment RBC Morphology Crenated Cell ESR 67 H Haptoglobin PT INR APTT Fibrinogen 851 H Specimen Type Sample Site pH Bicarbonate Actual POC Total CO2 Base Excess O2 Saturation O2 % ABG pCO2 ABG pO2 Gennaro Test Respiration Rate O2 Delivery Device Minute Volume Vent Mode Tidal Volume POC PEEP Blood Gas Notified Whom Blood Gas Notified Time Sodium Potassium Chloride Carbon Dioxide Anion Gap BUN Creatinine Estim Creat Clear Calc Est GFR (MDRD) Af Amer Est GFR (MDRD) Non-Af BUN/Creatinine Ratio Glucose Hemoglobin A1c Lactic Acid Uric Acid Calcium Phosphorus Magnesium Total Bilirubin Direct Bilirubin Indirect Bilirubin GGT AST ALT Alkaline Phosphatase Lactate Dehydrogenase Total Creatine Kinase Troponin I C-React Prot Ext Range Total Protein Albumin Globulin Albumin/Globulin Ratio Triglycerides Lipase Urine Color Urine Clarity Urine pH Ur Specific Debord Urine Protein Urine Glucose (UA) Urine Ketones Urine Occult Blood Urine Nitrite Urine Bilirubin Urine Urobilinogen Ur Leukocyte Esterase Urine RBC Urine WBC Ur Squamous Epith Cells Urine Bacteria Urine Mucus Urine Opiates Screen Urine Methadone Screen Ur Barbiturates Screen Ur Phencyclidine Scrn Ur Amphetamines Screen U Methamphetamin-MDMA U Benzodiazepines Scrn Urine Cocaine Screen U Cannabinoids Screen Ur Drug Screen Comment Ethyl Alcohol Rheumatoid Factor GRAY Screen Pending KASIA-1 Antibody Pending SS-A/Ro IgG Antibody Pending SS-B/La IgG Antibody Pending Sm (Baxter) Antibody Pending CLINICAL SOCIAL WORK THERAPIST Antibody Pending Scl-70 Scleroderma Ab Pending Double Strand DNA Ab Pending Centromere B Antibody Pending MRSA (PCR) POC Glucose Blood Type Direct Antiglob Test 05/13/19 05/13/19 05/13/19 16:55 16:55 17:55 WBC RBC Hgb Hct MCV MCH MCHC RDW Std Deviation RDW Coeff of Pierre Plt Count MPV Immature Gran % (Auto) Neut % (Auto) Lymph % (Auto) Towner % (Auto) Eos % (Auto) Baso % (Auto) Absolute Neuts (auto) Absolute Lymphs (auto) Total Counted Neutrophils % (Manual) Band Neutrophils % Lymphocytes % (Manual) Monocytes % (Manual) Nucleated RBC % Nucleated RBCs/100 WBC Differential Comment Diff Path Review Platelet Estimate Plt Morphology Comment RBC Morphology Crenated Cell ESR Haptoglobin Pending PT INR APTT Fibrinogen Specimen Type Sample Site pH Bicarbonate Actual POC Total CO2 Base Excess O2 Saturation O2 % ABG pCO2 ABG pO2 Gennaro Test Respiration Rate O2 Delivery Device Minute Volume Vent Mode Tidal Volume POC PEEP Blood Gas Notified Whom Blood Gas Notified Time Sodium Potassium Chloride Carbon Dioxide Anion Gap BUN Creatinine Estim Creat Clear Calc Est GFR (MDRD) Af Amer Est GFR (MDRD) Non-Af BUN/Creatinine Ratio Glucose Hemoglobin A1c Lactic Acid Uric Acid Calcium Phosphorus Magnesium Total Bilirubin Direct Bilirubin Indirect Bilirubin GGT AST ALT Alkaline Phosphatase Lactate Dehydrogenase Total Creatine Kinase Troponin I C-React Prot Ext Range Total Protein Albumin Globulin Albumin/Globulin Ratio Triglycerides 670 H Lipase Urine Color Urine Clarity Urine pH Ur Specific Debord Urine Protein Urine Glucose (UA) Urine Ketones Urine Occult Blood Urine Nitrite Urine Bilirubin Urine Urobilinogen Ur Leukocyte Esterase Urine RBC Urine WBC Ur Squamous Epith Cells Urine Bacteria Urine Mucus Urine Opiates Screen Urine Methadone Screen Ur Barbiturates Screen Ur Phencyclidine Scrn Ur Amphetamines Screen U Methamphetamin-MDMA U Benzodiazepines Scrn Urine Cocaine Screen U Cannabinoids Screen Ur Drug Screen Comment Ethyl Alcohol Rheumatoid Factor GRAY Screen KASIA-1 Antibody SS-A/Ro IgG Antibody SS-B/La IgG Antibody Sm (Baxter) Antibody CLINICAL SOCIAL WORK THERAPIST Antibody Scl-70 Scleroderma Ab Double Strand DNA Ab Centromere B Antibody MRSA (PCR) POC Glucose Blood Type O POSITIVE Direct Antiglob Test 05/13/19 05/13/19 05/13/19 18:49 19:25 19:43 WBC RBC Hgb Hct MCV MCH MCHC RDW Std Deviation RDW Coeff of Pierre Plt Count MPV Immature Gran % (Auto) Neut % (Auto) Lymph % (Auto) Towner % (Auto) Eos % (Auto) Baso % (Auto) Absolute Neuts (auto) Absolute Lymphs (auto) Total Counted Neutrophils % (Manual) Band Neutrophils % Lymphocytes % (Manual) Monocytes % (Manual) Nucleated RBC % Nucleated RBCs/100 WBC Differential Comment Diff Path Review Platelet Estimate Plt Morphology Comment RBC Morphology Crenated Cell ESR Haptoglobin PT INR APTT Fibrinogen Specimen Type Sample Site pH Bicarbonate Actual POC Total CO2 Base Excess O2 Saturation O2 % ABG pCO2 ABG pO2 Gennaro Test Respiration Rate O2 Delivery Device Minute Volume Vent Mode Tidal Volume POC PEEP Blood Gas Notified Whom Blood Gas Notified Time Sodium Potassium Chloride Carbon Dioxide Anion Gap BUN Creatinine Estim Creat Clear Calc Est GFR (MDRD) Af Amer Est GFR (MDRD) Non-Af BUN/Creatinine Ratio Glucose Hemoglobin A1c Lactic Acid Uric Acid Calcium Phosphorus Magnesium Total Bilirubin Direct Bilirubin Indirect Bilirubin GGT AST ALT Alkaline Phosphatase Lactate Dehydrogenase Total Creatine Kinase Troponin I 0.215 H C-React Prot Ext Range Total Protein Albumin Globulin Albumin/Globulin Ratio Triglycerides Lipase Urine Color Urine Clarity Urine pH Ur Specific Debord Urine Protein Urine Glucose (UA) Urine Ketones Urine Occult Blood Urine Nitrite Urine Bilirubin Urine Urobilinogen Ur Leukocyte Esterase Urine RBC Urine WBC Ur Squamous Epith Cells Urine Bacteria Urine Mucus Urine Opiates Screen Urine Methadone Screen Ur Barbiturates Screen Ur Phencyclidine Scrn Ur Amphetamines Screen U Methamphetamin-MDMA U Benzodiazepines Scrn Urine Cocaine Screen U Cannabinoids Screen Ur Drug Screen Comment Ethyl Alcohol Rheumatoid Factor GRAY Screen KASIA-1 Antibody SS-A/Ro IgG Antibody SS-B/La IgG Antibody Sm (Baxter) Antibody CLINICAL SOCIAL WORK THERAPIST Antibody Scl-70 Scleroderma Ab Double Strand DNA Ab Centromere B Antibody MRSA (PCR) Negative POC Glucose 93 Blood Type Direct Antiglob Test 05/13/19 05/13/19 05/13/19 19:43 21:15 23:51 WBC RBC Hgb Hct MCV MCH MCHC RDW Std Deviation RDW Coeff of Pierre Plt Count MPV Immature Gran % (Auto) Neut % (Auto) Lymph % (Auto) Towner % (Auto) Eos % (Auto) Baso % (Auto) Absolute Neuts (auto) Absolute Lymphs (auto) Total Counted Neutrophils % (Manual) Band Neutrophils % Lymphocytes % (Manual) Monocytes % (Manual) Nucleated RBC % Nucleated RBCs/100 WBC Differential Comment Diff Path Review Platelet Estimate Plt Morphology Comment RBC Morphology Crenated Cell ESR Haptoglobin PT INR APTT Fibrinogen Specimen Type Sample Site pH Bicarbonate Actual POC Total CO2 Base Excess O2 Saturation O2 % ABG pCO2 ABG pO2 Gennaro Test Respiration Rate O2 Delivery Device Minute Volume Vent Mode Tidal Volume POC PEEP Blood Gas Notified Whom Blood Gas Notified Time Sodium Potassium Chloride Carbon Dioxide Anion Gap BUN Creatinine Estim Creat Clear Calc Est GFR (MDRD) Af Amer Est GFR (MDRD) Non-Af BUN/Creatinine Ratio Glucose Hemoglobin A1c Lactic Acid 1.7 Uric Acid 9.1 H Calcium Phosphorus Magnesium Total Bilirubin Direct Bilirubin Indirect Bilirubin GGT AST ALT Alkaline Phosphatase Lactate Dehydrogenase Total Creatine Kinase Troponin I C-React Prot Ext Range Total Protein Albumin Globulin Albumin/Globulin Ratio Triglycerides Lipase 460 H Urine Color Urine Clarity Urine pH Ur Specific Debord Urine Protein Urine Glucose (UA) Urine Ketones Urine Occult Blood Urine Nitrite Urine Bilirubin Urine Urobilinogen Ur Leukocyte Esterase Urine RBC Urine WBC Ur Squamous Epith Cells Urine Bacteria Urine Mucus Urine Opiates Screen Urine Methadone Screen Ur Barbiturates Screen Ur Phencyclidine Scrn Ur Amphetamines Screen U Methamphetamin-MDMA U Benzodiazepines Scrn Urine Cocaine Screen U Cannabinoids Screen Ur Drug Screen Comment Ethyl Alcohol Rheumatoid Factor GRAY Screen KASIA-1 Antibody SS-A/Ro IgG Antibody SS-B/La IgG Antibody Sm (Baxter) Antibody CLINICAL SOCIAL WORK THERAPIST Antibody Scl-70 Scleroderma Ab Double Strand DNA Ab Centromere B Antibody MRSA (PCR) POC Glucose 55 L Blood Type Direct Antiglob Test 05/14/19 05/14/19 05/14/19 00:21 00:26 00:31 WBC RBC Hgb Hct MCV MCH MCHC RDW Std Deviation RDW Coeff of Pierre Plt Count MPV Immature Gran % (Auto) Neut % (Auto) Lymph % (Auto) Towner % (Auto) Eos % (Auto) Baso % (Auto) Absolute Neuts (auto) Absolute Lymphs (auto) Total Counted Neutrophils % (Manual) Band Neutrophils % Lymphocytes % (Manual) Monocytes % (Manual) Nucleated RBC % Nucleated RBCs/100 WBC Differential Comment Diff Path Review Platelet Estimate Plt Morphology Comment RBC Morphology Crenated Cell ESR Haptoglobin PT INR APTT Fibrinogen Specimen Type ART Sample Site R Brachial pH 7.32 L Bicarbonate Actual 13.8 L POC Total CO2 15 Base Excess -12 L O2 Saturation 98 O2 % 55 ABG pCO2 26.7 L ABG pO2 103 H Gennaro Test NA Respiration Rate 12 O2 Delivery Device Vent Minute Volume 16.00 Vent Mode A-C Tidal Volume 450 POC PEEP 5 Blood Gas Notified Whom HOSP Blood Gas Notified Time 28 Sodium Potassium Chloride Carbon Dioxide Anion Gap BUN Creatinine Estim Creat Clear Calc Est GFR (MDRD) Af Amer Est GFR (MDRD) Non-Af BUN/Creatinine Ratio Glucose 241 H Hemoglobin A1c Lactic Acid Uric Acid Calcium Phosphorus Magnesium Total Bilirubin Direct Bilirubin Indirect Bilirubin GGT AST ALT Alkaline Phosphatase Lactate Dehydrogenase Total Creatine Kinase Troponin I C-React Prot Ext Range Total Protein Albumin Globulin Albumin/Globulin Ratio Triglycerides Lipase Urine Color Urine Clarity Urine pH Ur Specific Debord Urine Protein Urine Glucose (UA) Urine Ketones Urine Occult Blood Urine Nitrite Urine Bilirubin Urine Urobilinogen Ur Leukocyte Esterase Urine RBC Urine WBC Ur Squamous Epith Cells Urine Bacteria Urine Mucus Urine Opiates Screen Urine Methadone Screen Ur Barbiturates Screen Ur Phencyclidine Scrn Ur Amphetamines Screen U Methamphetamin-MDMA U Benzodiazepines Scrn Urine Cocaine Screen U Cannabinoids Screen Ur Drug Screen Comment Ethyl Alcohol Rheumatoid Factor GRAY Screen KASIA-1 Antibody SS-A/Ro IgG Antibody SS-B/La IgG Antibody Sm (Baxter) Antibody CLINICAL SOCIAL WORK THERAPIST Antibody Scl-70 Scleroderma Ab Double Strand DNA Ab Centromere B Antibody MRSA (PCR) POC Glucose 33 L* Blood Type Direct Antiglob Test 05/14/19 05/14/19 05/14/19 04:45 04:45 04:45 WBC 18.5 H RBC 4.34 Hgb 13.0 Hct 40.0 MCV 92.2 MCH 30.0 MCHC 32.5 RDW Std Deviation 55.4 H RDW Coeff of Pierre 16.3 H Plt Count 21 L* MPV Immature Gran % (Auto) Neut % (Auto) Not Reportable Lymph % (Auto) Towner % (Auto) Eos % (Auto) Baso % (Auto) Absolute Neuts (auto) 16.3 H Absolute Lymphs (auto) 1.48 Total Counted 100 Neutrophils % (Manual) 86 H Band Neutrophils % 2 Lymphocytes % (Manual) 8 L Monocytes % (Manual) 4 Nucleated RBC % Nucleated RBCs/100 WBC 1 Differential Comment Diff Path Review May foll Platelet Estimate MKD DEC Plt Morphology Comment LARGE RBC Morphology NORM C+C Crenated Cell ESR Haptoglobin PT 15.1 H INR 1.2 APTT Fibrinogen Specimen Type Sample Site pH Bicarbonate Actual POC Total CO2 Base Excess O2 Saturation O2 % ABG pCO2 ABG pO2 Gennaro Test Respiration Rate O2 Delivery Device Minute Volume Vent Mode Tidal Volume POC PEEP Blood Gas Notified Whom Blood Gas Notified Time Sodium 141 Potassium 3.7 Chloride 111 H Carbon Dioxide 20.0 L Anion Gap 10 BUN 125 H* Creatinine 2.91 H Estim Creat Clear Calc 18.76 Est GFR (MDRD) Af Amer 21 L Est GFR (MDRD) Non-Af 17 L BUN/Creatinine Ratio 43.0 H Glucose 226 H Hemoglobin A1c Lactic Acid Uric Acid Calcium 7.3 L Phosphorus 4.7 Magnesium 2.3 Total Bilirubin 4.70 H Direct Bilirubin Indirect Bilirubin GGT AST 496 H ALT 164 H Alkaline Phosphatase 308 H Lactate Dehydrogenase Total Creatine Kinase Troponin I C-React Prot Ext Range Total Protein 5.8 L Albumin 1.8 L Globulin 4.0 Albumin/Globulin Ratio 0.4 L Triglycerides Lipase Urine Color Urine Clarity Urine pH Ur Specific Debord Urine Protein Urine Glucose (UA) Urine Ketones Urine Occult Blood Urine Nitrite Urine Bilirubin Urine Urobilinogen Ur Leukocyte Esterase Urine RBC Urine WBC Ur Squamous Epith Cells Urine Bacteria Urine Mucus Urine Opiates Screen Urine Methadone Screen Ur Barbiturates Screen Ur Phencyclidine Scrn Ur Amphetamines Screen U Methamphetamin-MDMA U Benzodiazepines Scrn Urine Cocaine Screen U Cannabinoids Screen Ur Drug Screen Comment Ethyl Alcohol Rheumatoid Factor GRAY Screen KASIA-1 Antibody SS-A/Ro IgG Antibody SS-B/La IgG Antibody Sm (Baxter) Antibody [employer] THERAPIST Antibody Scl-70 Scleroderma Ab Double Strand DNA Ab Centromere B Antibody MRSA (PCR) POC Glucose Blood Type Direct Antiglob Test 05/14/19 05:19 WBC RBC Hgb Hct MCV MCH MCHC RDW Std Deviation RDW Coeff of Pierre Plt Count MPV Immature Gran % (Auto) Neut % (Auto) Lymph % (Auto) Towner % (Auto) Eos % (Auto) Baso % (Auto) Absolute Neuts (auto) Absolute Lymphs (auto) Total Counted Neutrophils % (Manual) Band Neutrophils % Lymphocytes % (Manual) Monocytes % (Manual) Nucleated RBC % Nucleated RBCs/100 WBC Differential Comment Diff Path Review Platelet Estimate Plt Morphology Comment RBC Morphology Crenated Cell ESR Haptoglobin PT INR APTT Fibrinogen Specimen Type Sample Site pH Bicarbonate Actual POC Total CO2 Base Excess O2 Saturation O2 % ABG pCO2 ABG pO2 Gennaro Test Respiration Rate O2 Delivery Device Minute Volume Vent Mode Tidal Volume POC PEEP Blood Gas Notified Whom Blood Gas Notified Time Sodium Potassium Chloride Carbon Dioxide Anion Gap BUN Creatinine Estim Creat Clear Calc Est GFR (MDRD) Af Amer Est GFR (MDRD) Non-Af BUN/Creatinine Ratio Glucose Hemoglobin A1c Lactic Acid Uric Acid Calcium Phosphorus Magnesium Total Bilirubin Direct Bilirubin Indirect Bilirubin GGT AST ALT Alkaline Phosphatase Lactate Dehydrogenase Total Creatine Kinase Troponin I C-React Prot Ext Range Total Protein Albumin Globulin Albumin/Globulin Ratio Triglycerides Lipase Urine Color Urine Clarity Urine pH Ur Specific Debord Urine Protein Urine Glucose (UA) Urine Ketones Urine Occult Blood Urine Nitrite Urine Bilirubin Urine Urobilinogen Ur Leukocyte Esterase Urine RBC Urine WBC Ur Squamous Epith Cells Urine Bacteria Urine Mucus Urine Opiates Screen Urine Methadone Screen Ur Barbiturates Screen Ur Phencyclidine Scrn Ur Amphetamines Screen U Methamphetamin-MDMA U Benzodiazepines Scrn Urine Cocaine Screen U Cannabinoids Screen Ur Drug Screen Comment Ethyl Alcohol Rheumatoid Factor GRAY Screen KASIA-1 Antibody SS-A/Ro IgG Antibody SS-B/La IgG Antibody Sm (Baxter) Antibody [employer] WORK THERAPIST Antibody Scl-70 Scleroderma Ab Double Strand DNA Ab Centromere B Antibody MRSA (PCR) POC Glucose 194 H Blood Type Direct Antiglob Test Microbiology 05/13/19 11:40 Blood Culture (Wb) - Anticubital Left Blood Culture - Preliminary 05/13/19 18:15 Blood Culture (Wb) - Central Line Blood Culture - Preliminary 05/13/19 11:54 Blood Culture (Wb) - Left Hand Bacteria Detection (PCR) - Preliminary 05/13/19 11:54 Blood Culture (Wb) - Left Hand Blood Culture - Preliminary Clinical Impression(s) from Imaging Studies Chest X-Ray 05/13/19 09:57 IMPRESSION: The tip of the endotracheal tube is at 3.7 cm proximal to the morena. Electronically Signed: Jose Longo, at 10:51 EDT , Service support , Brain CT 05/13/19 09:58 IMPRESSION: Chronic involutional changes of the brain. Electronically Signed: Jose Longo, at 11:18 EDT , Service support , Chest X-Ray 05/13/19 09:59 IMPRESSION: The tip of the endotracheal tube is at the origin of the right mainstem bronchus. It should be withdrawn approximately 3 cm. Electronically Signed: Jose Longo, at 10:51 EDT , Service support , Chest X-Ray 05/13/19 16:45 IMPRESSION: Central catheter extends to the cavoatrial junction. No pneumothorax. Electronically Signed: Toi Saenz MD at 17:32 EDT , Service support , Abdomen CT 05/13/19 19:47 IMPRESSION: Infrarenal abdominal aortic aneurysm. No rupture or periaortic collection. Colonic diverticulosis. No obstruction. Bilateral lower lung infiltrates. Electronically Signed: Toi Saenz MD at 23:09 EDT , Service support , Chest X-Ray 05/14/19 05:55 IMPRESSION: Left mid lower lung field atelectasis versus pneumonia with mild left effusion. Mild right perihilar atelectasis. Overall exam is stable or slightly worsened on the left compared to recent study. Lines and tubes as described above. Electronically Signed: Sara Jesus MD at 4:07 EDT , Service support , Medical Necessity - Tobacco Use Smoking Status: Former smoker - she quit in 2018 but prior to that she smoked 1-1/2 packs of cigarettes daily for at least 40 years. Tobacco Use: Cigarettes Assessment/Plan All Active Problems (Last Reviewed 05/13/19 @ 20:07 by Trupti Bagley DO) Acute respiratory failure with hypoxia (Acute) Atrial fibrillation with rapid ventricular response (Acute) Thrombocytopenia (Acute) Dehydration (Acute) Septic shock (Acute) Acute febrile illness (Acute) Rhabdomyolysis (Acute) ARF (acute renal failure) (Acute) Uremic encephalopathy (Acute) Abnormal LFTs (Acute) Metabolic acidosis (Acute) Lactic acidosis (Acute) Cat bite involving extremity (Resolved) Cellulitis (Resolved) Dysphagia (Resolved) Ulcer of right lower leg (Resolved) RECOMMENDATIONS: 1. Continue broad-spectrum antimicrobial coverage, pending finalized infectious work-up. 2. Check hepatitis panel. 3. Wean vasopressor support in an attempt to maintain a mean arterial pressure at or above 65 mmHg. 4. Check platelet count daily. No indication for transfusion at this time. 5. Wean FiO2 to maintain oxygen saturations at or above 90%. 6. Continue amiodarone. 7. Avoid propofol use given elevated triglycerides and lipase. 8. Start tube feeds today. 9. Continue Pepcid for GI prophylaxis. IMPRESSIONS: 1. Acute hypoxemic respiratory failure The patient was initially found down in an unresponsive state by family members. She was subsequently intubated upon arrival to the emergency department. While the patient initially did not have evidence of an infiltrate on plain film chest x-ray, she was significantly intravascularly volume depleted. The patient subsequently developed evidence of airspace disease on follow-up chest imaging. While she does have a prior smoking history, she does not have evidence of COPD on pulmonary function studies. We will plan to continue current supportive measures with invasive mechanical ventilatory support and broad-spectrum antimicrobial coverage. We will wean FiO2 to maintain an oxygen saturation at or above 90%. 2. Gram-negative septic shock The patient has evidence of gram-negative bacteremia and evidence of airspace disease on chest imaging. Patient will be continued on broad-spectrum antimicrobials accordingly. Levophed will be weaned to maintain a mean arterial pressure at or above 65 mmHg. 3. Metabolic encephalopathy The exact etiology for the patient's presenting encephalopathy is unclear. It is unknown whether she may have overdosed on outpatient prescription medications. Nevertheless, her current state of encephalopathy is likely metabolic in nature as she is significantly uremic. Nephrology is currently following. Initial CT head was negative. The patient has no known history of an underlying seizure disorder. With time and avoidance of sedating medications, my hope is the patient's mentation will improve. 4. Acute on chronic kidney disease This is likely prerenal in etiology and related to significant intravascular volume depletion and subsequent ischemic ATN in the setting of hemodynamic instability. The patient is currently being volume resuscitated. Nephrology is following. We will monitor urine output. No current indication for renal replacement therapy. 5. Atrial fibrillation with rapid ventricular rate The patient did present to the emergency department with new onset atrial fibrillation with rapid ventricular rate, which may have been precipitated by the patient's current infectious state. Cardiology is following. Continue amiodarone accordingly. 6. Thrombocytopenia The patient was noted to have a normal platelet count in February 2019. While the etiology for the patient's thrombocytopenia is unclear, considerations would include DIC in the setting of sepsis versus a possible thrombotic microangiopathy. We will continue to monitor for now. 7. Elevated transaminases I suspect there is likely a component of shock liver at play here, given the patient's tenuous hemodynamics. A CT abdomen/pelvis was largely unrevealing. 8. Troponin elevation Likely secondary to demand ischemia in the setting of septic shock. 9. Super morbid obesity/history of medical noncompliance/obstructive sleep apnea/history of tobacco dependency, in remission Complicates care, management, recovery and prognosis. We will plan to begin tube feeds today. The patient will require physical therapy evaluation, once medically stabilized. TIME: 42 minutes of critical care time, independent of procedures, was spent addressing the patient's acute hypoxemic respiratory failure, septic shock, metabolic encephalopathy, acute on chronic kidney disease, atrial fibrillation with rapid ventricular rate, thrombocytopenia, review of all data and collaboration with the care team. ([id number]) Code Visit [id number]: [id number] Critical care first hour
--- NOTE | 2019-05-14 06:59 | PCM.PROGNOTE ---
Patient Problems: Active and Suspected Problems (Last Reviewed 05/13/19 @ 20:07 by Trupti Bagley DO) Acute respiratory failure with hypoxia (Acute) Atrial fibrillation with rapid ventricular response (Acute) Thrombocytopenia (Acute) Dehydration (Acute) Septic shock (Acute) Acute febrile illness (Acute) source not yet identified Rhabdomyolysis (Acute) ARF (acute renal failure) (Acute) Uremic encephalopathy (Acute) Abnormal LFTs (Acute) Metabolic acidosis (Acute) Lactic acidosis (Acute) Subjective: Day #2 ventilator Day #2 vancomycin and Zosyn All events of the past 24 hours of been reviewed. T-max is 103.3 ?F. She is currently on 650 mg of Tylenol every 6 hours and current temp is 98.8. She was started on levo fed last night and is currently at 5 mics. Blood pressure is more stable. The most recent blood pressure was 115/82. She is maintaining an oxygen saturation of 98 100% on a 55% FiO2. Fluid balance since admission is +4810. Total urine output on 05/13/2019 was 450 cc and she had an additional 250 cc overnight. All lab was personally reviewed. The white blood cell count today is 18.5. Platelets are 21,000 after 1 unit of pheresis platelets. Hemoglobin is stable at 13. PT is 15.1 today. An ABG in the can solderer on a 55% FiO2 with a tidal volume of 450 and a PEEP of 5 showed a pH of 7.32, PCO2 of 26.7 and a PO2 of 103. Blood cultures turned quickly positive for gram-negative rods and GM + cocci. CT scan of the abdomen and pelvis with oral contrast only showed colonic diverticulosis, no obstruction, infrarenal abdominal aortic aneurysm measuring 0.5 cm, a T11 compression fraction with previous kyphoplasty on infiltrates. Chest x-ray today shows obvious infiltrates, left greater than right. She opens her eyes when you call her name but does not respond to commands. She is not making eye contact. - Physical Exam Vitals/I&O's: Vital Signs Temp Pulse Resp BP Pulse Ox 98.8 F 109 H 22 H 115/82 H 98 05/14/19 06:00 05/14/19 06:00 05/14/19 06:00 05/14/19 06:00 05/14/19 06:00 Oxygen Delivery Method Mechanical Ventilator Weight: 296 lb 1.293 oz Body Mass Index (BMI) 45.2 Finger Stick Blood Glucose 180 Intake and Output for Last 24 Hours 05/12/19 05/13/19 05/14/19 23:59 23:59 23:59 Intake Total 5138.45 / 5247.09 460.24 / 460.24 Output Total 550 / 550 250 / 250 Balance 4588.45 / 4697.09 210.24 / 210.24 General: Well developed, Well nourished, - - Sedated and mechanically ventilated. HEENT: Atraumatic, PERRLA Neck: No Nodes, Trachea Midline Lungs: Clear to auscultation - Anterior and lateral, No rhonchi, No wheeze, No rales Cardiovascular: Normal S1, Normal S2, No murmurs, Irregular Rate, No Gallop, - - Remains in atrial fibrillation. Heart rate is coming under better control. She remains on the amiodarone drip. Abdomen: Bowel Sounds Present, Soft, Non-Distended, - - No guarding with palpation no grimacing Extremities: No clubbing, No edema, Cyanosis - There is cyanosis of the fingernail and toenail beds. Both feet are cool to the touch., Diminished Peripheral Pulses Skin: - - there is mottling of the plantar surface of the L foot. She has a few blue toes that will need to be watched closely. there is a scab over the medial aspect of the R great toe and also a smaller scab over the medial surface of the the R second toe. There is no sign of infection. Neurological: Cranial nerves II-XII grossly intact, - - she is flaccid and not moving much. Microbiology Past 72 Hours 05/13/19 11:40 Blood Culture (Wb) - Anticubital Left Blood Culture - Preliminary 05/13/19 18:15 Blood Culture (Wb) - Central Line Blood Culture - Preliminary 05/13/19 11:54 Blood Culture (Wb) - Left Hand Bacteria Detection (PCR) - Preliminary 05/13/19 11:54 Blood Culture (Wb) - Left Hand Blood Culture - Preliminary Laboratory Results 05/13/19 10:16: Specimen Type ART, Sample Site R Brachial, pH 7.25 L, Bicarbonate Actual 16.4 L, POC Total CO2 18, Base Excess -11 L, O2 Saturation 97, O2 % 70, ABG pCO2 37.8, ABG pO2 101 H, Gennaro Test NA, Respiration Rate 12, O2 Delivery Device Vent, Minute Volume 5.00, Vent Mode A-C, Tidal Volume 450, POC PEEP 5, Blood Gas Notified Whom ED , Blood Gas Notified Time 1020 05/13/19 10:49: Urine Opiates Screen NEGATIVE, Urine Methadone Screen NEGATIVE, Ur Barbiturates Screen NEGATIVE, Ur Phencyclidine Scrn NEGATIVE, Ur Amphetamines Screen NEGATIVE, U Methamphetamin-MDMA POSITIVE H, U Benzodiazepines Scrn NEGATIVE, Urine Cocaine Screen NEGATIVE, U Cannabinoids Screen NEGATIVE, Ur Drug Screen Comment 05/13/19 10:49: Urine Color Yellow, Urine Clarity Cloudy, Urine pH 6.0, Ur Specific [place] 1.015, Urine Protein 30 H, Urine Glucose (UA) Normal, Urine Ketones 5 H, Urine Occult Blood 250 H, Urine Nitrite Negative, Urine Bilirubin 1 H, Urine Urobilinogen 8 H, Ur Leukocyte Esterase 25 H, Urine RBC 0 SEEN, Urine WBC 0-5 SEEN, Ur Squamous Epith Cells 0 SEEN, Urine Bacteria 0 SEEN, Urine Mucus 0 SEEN 05/13/19 11:40: Lactic Acid 2.7 H 05/13/19 12:15: WBC 14.5 H, RBC 4.34, Hgb 13.3, Hct 40.7, MCV 93.8, MCH 30.6, MCHC 32.7, RDW Std Deviation 57.0 H, RDW Coeff of Pierre 16.3 H, Plt Count 20 L*, MPV TNP, Immature Gran % (Auto) 2.100 H, Neut % (Auto) 87.5 H, Lymph % (Auto) 3.9 L, [place] % (Auto) 5.4, Eos % (Auto) 1.0, Baso % (Auto) 0.1, Absolute Neuts (auto) 12.7 H, Absolute Lymphs (auto) 0.56 L, Nucleated RBC % 0.3, Differential Comment , Diff Path Review Jailene Kelleynated Cell 1+ 05/13/19 12:15: PT 15.4 H, INR 1.2, APTT 27.8 05/13/19 12:15: Sodium 141, Potassium 4.2, Chloride 109 H, Carbon Dioxide 19.0 L, Anion Gap 13, BUN 123 H*, Creatinine 3.99 H, Estim Creat Clear Calc 14.22, Est GFR (MDRD) Af Amer 15 L, Est GFR (MDRD) Non-Af 12 L, BUN/Creatinine Ratio 30.8 H, Glucose 176 H, Calcium 7.8 L, Total Bilirubin 2.70 H, AST 241 H, ALT 83 H, Alkaline Phosphatase 247 H, Total Creatine Kinase 3819 H, Troponin I 0.241 H, Total Protein 6.0 L, Albumin 1.8 L, Globulin 4.2, Albumin/Globulin Ratio 0.4 L 05/13/19 12:15: Ethyl Alcohol 3.0 05/13/19 12:15: Phosphorus 6.2 H 05/13/19 12:15: Hemoglobin A1c 5.8 05/13/19 15:07: Specimen Type ART, Sample Site R Brachial, pH 7.37, Bicarbonate Actual 14.2 L, POC Total CO2 15, Base Excess -11 L, O2 Saturation 99, O2 % 55, ABG pCO2 24.8 L, ABG pO2 136 H, Gennaro Test POS, Respiration Rate 12, O2 Delivery Device Vent, Minute Volume 9.00, Vent Mode A-C, Tidal Volume 450, POC PEEP 5, Blood Gas Notified Whom ICU MD, Blood Gas Notified Time 1458 05/13/19 16:35: Direct Antiglob Test NEG w/POLYSPECIFIC 05/13/19 16:55: Magnesium 2.4, Troponin I 0.219 H 05/13/19 16:55: Total Bilirubin 3.20 H, Direct Bilirubin 2.37 H, Indirect Bilirubin 0.80, GGT 83 H, Lactate Dehydrogenase 528 H, C-React Prot Ext Range 190.00 H, Rheumatoid Factor < 10.0 05/13/19 16:55: Lactic Acid 2.2 H 05/13/19 16:55: Fibrinogen 851 H 05/13/19 16:55: ESR 67 H 05/13/19 16:55: GRAY Screen Pending, KASIA-1 Antibody Pending, SS-A/Ro IgG Antibody Pending, SS-B/La IgG Antibody Pending, Sm (Baxter) Antibody Pending, [facility] Antibody Pending, Scl-70 Scleroderma Ab Pending, Double Strand DNA Ab Pending, Centromere B Antibody Pending 05/13/19 16:55: Blood Type O POSITIVE 05/13/19 16:55: Triglycerides 670 H 05/13/19 17:55: Haptoglobin Pending 05/13/19 18:49: POC Glucose 93 05/13/19 19:25: MRSA (PCR) Negative 05/13/19 19:43: Troponin I 0.215 H 05/13/19 19:43: Uric Acid 9.1 H, Lipase 460 H 05/13/19 21:15: Lactic Acid 1.7 05/13/19 23:51: POC Glucose 55 L 05/14/19 00:21: POC Glucose 33 L* 05/14/19 00:26: Glucose 241 H 05/14/19 00:31: Specimen Type ART, Sample Site R Brachial, pH 7.32 L, Bicarbonate Actual 13.8 L, POC Total CO2 15, Base Excess -12 L, O2 Saturation 98, O2 % 55, ABG pCO2 26.7 L, ABG pO2 103 H, Gennaro Test NA, Respiration Rate 12, O2 Delivery Device Vent, Minute Volume 16.00, Vent Mode A-C, Tidal Volume 450, POC PEEP 5, Blood Gas Notified Whom TELLO CHAN, Blood Gas Notified Time 28 05/14/19 04:45: WBC 18.5 H, RBC 4.34, Hgb 13.0, Hct 40.0, MCV 92.2, MCH 30.0, MCHC 32.5, RDW Std Deviation 55.4 H, RDW Coeff of Pierre 16.3 H, Plt Count 21 L*, Neut % (Auto) Not Reportable, Absolute Neuts (auto) 16.3 H, Absolute Lymphs (auto) 1.48, Total Counted 100, Neutrophils % (Manual) 86 H, Band Neutrophils % 2, Lymphocytes % (Manual) 8 L, Monocytes % (Manual) 4, Nucleated RBCs/100 WBC 1, Diff Path Review May dave, Platelet Estimate MKD DEC, Plt Morphology Comment LARGE, RBC Morphology NORM C+C 05/14/19 04:45: PT 15.1 H, INR 1.2 05/14/19 04:45: Sodium 141, Potassium 3.7, Chloride 111 H, Carbon Dioxide 20.0 L, Anion Gap 10, BUN 125 H*, Creatinine 2.91 H, Estim Creat Clear Calc 18.76, Est GFR (MDRD) Af Amer 21 L, Est GFR (MDRD) Non-Af 17 L, BUN/Creatinine Ratio 43.0 H, Glucose 226 H, Calcium 7.3 L, Phosphorus 4.7, Magnesium 2.3, Total Bilirubin 4.70 H, AST 496 H, ALT 164 H, Alkaline Phosphatase 308 H, Total Protein 5.8 L, Albumin 1.8 L, Globulin 4.0, Albumin/Globulin Ratio 0.4 L 05/14/19 05:19: POC Glucose 194 H Current Medications Acetaminophen (Tylenol Liquid) 650 mg NG Q6 ON LICENSE OF [facility] Last Admin: 05/14/19 05:07 Dose: 650 mg Documented by: Calamine/Phenol (Calmoseptine Ointment) 1 applic TOPICAL TID ON LICENSE OF [facility]; Protocol Last Admin: 05/14/19 05:05 Dose: 1 applicatio Documented by: Chlorhexidine Gluconate () 1 each TOPICAL DAILY ON LICENSE OF [facility] Last Admin: 05/14/19 05:06 Dose: 1 each Documented by: Chlorhexidine Gluconate () 15 ml PO BID ON LICENSE OF [facility] Last Admin: 05/13/19 21:38 Dose: 15 ml Documented by: Dextrose (D50w Syringe) 0 gm IV X1 PRN; Protocol PRN Reason: Hypoglycemia Last Admin: 05/13/19 23:56 Dose: 12.5 gm Documented by: Famotidine (Pepcid) 20 mg PO DAILY ON LICENSE OF [facility] Glucagon () 1 mg IM .X1 PRN PRN Reason: Hypoglycemia Propofol (Diprivan) 1,000 mg in 100 mls @ 8.106 mls/hr CONT INF .Q12H ON LICENSE OF [facility]; Protocol Last Admin: 05/13/19 22:04 Dose: Not Given Documented by: Norepinephrine Bitartrate 8 mg (/ Sodium Chloride) 250 mls @ 9.375 mls/hr CONT INF .[id number] ON LICENSE OF [facility]; Protocol Last Titration: 05/14/19 06:00 Dose: 5 mcg/min, 9.4 mls/hr Documented by: Amiodarone HCl 360 mg/ (Dextrose) 200 mls @ 16.667 mls/hr CONT INF .Q12H ON LICENSE OF [facility] Stop: 05/14/19 15:29 Last Infusion: 05/14/19 06:00 Dose: 0.5 mg/min, 16.7 mls/hr Documented by: Vancomycin IV Pharmacy to Dose (1 ea/ Sodium Chloride) 500 mls @ 250 mls/hr IV PRN PRN; Protocol PRN Reason: Rx to Dose Piperacillin Sod/Tazobactam (Sod 3.375 gm/ Sodium Chloride) 50 mls @ 12.5 mls/hr IV Q12 ON LICENSE OF [facility] Last Infusion: 05/13/19 21:35 Dose: Infused Documented by: Fentanyl () 100 mls @ 2.5 mls/hr IV UD PHANI; Protocol Last Titration: 05/14/19 06:00 Dose: 25 mcg/hr, 2.5 mls/hr Documented by: Insulin Human Lispro (Humalog Kwikpen (Bkc)) 0 unit SC Q6 PHANI; Protocol Last Admin: 05/14/19 05:22 Dose: 1 u Documented by: Nystatin (Mycostatin Powder) 1 applic TOPICAL TID PHANI; Protocol Last Admin: 05/14/19 05:05 Dose: 1 applicatio Documented by: Ondansetron HCl (Zofran) 4 mg IV Q8H PRN PRN PRN Reason: NAUSEA/VOMITING Sodium Chloride () 10 - 40 ml IV UD PRN PRN Reason: Multilumen/Santos Flush Last Admin: 05/14/19 05:06 Dose: 20 ml Documented by: Sodium Chloride (0.9% Nacl (Sterile) Posiflush) 10 - 40 ml IV UD PRN PRN Reason: Port access or dressing change Sodium Chloride () 10 - 40 ml IV UD PRN PRN Reason: SALINE FLUSH Medical Necessity - Tobacco Use Smoking Status: Former smoker - she quit in 2018 but prior to that she smoked 1-1/2 packs of cigarettes daily for at least 40 years. Tobacco Use: Cigarettes Assessment/Plan All Active Problems (Last Reviewed 05/13/19 @ 20:07 by Trupti Bagley DO) Acute respiratory failure with hypoxia (Acute) Atrial fibrillation with rapid ventricular response (Acute) Thrombocytopenia (Acute) Dehydration (Acute) Septic shock (Acute) Acute febrile illness (Acute) Rhabdomyolysis (Acute) ARF (acute renal failure) (Acute) Uremic encephalopathy (Acute) Abnormal LFTs (Acute) Metabolic acidosis (Acute) Lactic acidosis (Acute) Cat bite involving extremity (Resolved) Cellulitis (Resolved) Dysphagia (Resolved) Ulcer of right lower leg (Resolved) Day #2 Zosyn and vancomycin Impressions 1. septic shock secondary to suspected aspiration pneumonia with BC's + for GM + cocci and GM neg rods. Central line inserted L IJ. On Levophed at 5 mics. Continue Zosyn and vancomycin. Repeat blood cultures today. If the blood cultures are repeatedly positive will need a NILDA because she has a bioprosthetic aortic valve and this was not well visualized on the echocardiogram done 05/13/2019. Will consult Dr. Alarcon to help manage the antibiotics. 2. acute hypoxic respiratory failure - intubated and mechanically ventilated. 3. Atrial fibrillation with rapid ventricular response -when the 24-hour intravenous loading dose of amiodarone is completed we will continue amiodarone 0.5 mg/hr since she is NPO and has an OG. Dr. San is following. 4. Acute renal failure-etiology unknown, more likely than not due to sepsis and dehydration. Appreciate Dr. Hanley's input. The fractional excretion of sodium is less than 1% which is consistent with prerenal azotemia. Creatinine is improving with hydration. We will continue IV fluids. 5. Severe thrombocytopenia- likely due to GM negative sepsis and also uremia. Transfuse PLT's as needed to keep the PLT count > 20....if the PLT's do not start to improve may nee to DC the Zosyn and consider Merrem. 6. Uremic/toxic encephalopathy 7. Rhabdomyolysis-continue IV fluids 8. hx of anxiety/depression and chronic benzo and narcotic dependence - 9. History of a bioprosthetic mitral valve replacement 10. Hypertension, hyperlipidemia, obstruct of sleep apnea (not compliant with PAP therapy), GERD, chronic back pain, morbid obesity complicate care, management and prognosis ... she is historically not compliant with physician follow up. Recheck lab in a.m. HIV is nonreactive. Hepatitis panel is pending. Tube feeds started today. Code Visit Inpatient E&M: 42861 [facility] L3
--- NOTE | 2019-05-14 07:02 | PN.CARD_ITS ---
Subjectve: Patient seen and evaluated. Still intubated and unresponsive. Objective: Vital Signs Temp Pulse Resp BP Pulse Ox 99.1 F 94 29 H 99/82 H 99 05/14/19 07:00 05/14/19 07:00 05/14/19 07:00 05/14/19 07:00 05/14/19 07:00 Oxygen Delivery Method Mechanical Ventilator Weight: 296 lb 1.293 oz Body Mass Index (BMI) 45.2 Finger Stick Blood Glucose 180 Intake and Output for Last 24 Hours 05/12/19 05/13/19 05/14/19 23:59 23:59 23:59 Intake Total 5138.45 / 5247.09 472.14 / 472.14 Output Total 550 / 550 250 / 250 Balance 4588.45 / 4697.09 222.14 / 222.14 HEENT: PERRL, EOMI, Sclera Non Icteric Neck: Supple, Good ROM, No Lymph Node Enlargement Lungs: Clear to auscultation Cardiovascular: Irregular Rhythm, Normal S1, Normal S2, No Murmurs, No Rubs, No Gallops Vascular: No Carotid Bruits, Normal Femoral Pulses, Normal Radial Pulses, Normal Dorsalis Pedal Pulse, Normal Posterior Tibial Pulses Abdomen: Bowel Sounds Present, Soft, Non Tender, No HSM, No Organomegaly Extremities: No Cyanosis, No Clubbing, No edema Lymphatic: No Lymph Node Enlargement Neurological: No Focal Motor or Sensory Deficit 05/13/19 10:16: pH 7.25 L, Bicarbonate Actual 16.4 L, POC Total CO2 18, Base Excess -11 L, O2 Saturation 97, ABG pCO2 37.8, ABG pO2 101 H, Gennaro Test NA 05/13/19 10:49: Urine Color Yellow, Urine Clarity Cloudy, Urine pH 6.0, Ur Specific [place] 1.015, Urine Protein 30 H, Urine Glucose (UA) Normal, Urine Ketones 5 H, Urine Occult Blood 250 H, Urine Nitrite Negative, Urine Bilirubin 1 H, Urine Urobilinogen 8 H, Ur Leukocyte Esterase 25 H, Urine RBC 0 SEEN, Urine WBC 0-5 SEEN 05/13/19 11:40: Lactic Acid 2.7 H 05/13/19 12:15: WBC 14.5 H, RBC 4.34, Hgb 13.3, Hct 40.7, MCV 93.8, MCH 30.6, MCHC 32.7, Plt Count 20 L*, MPV TNP, Immature Gran % (Auto) 2.100 H, Neut % (Auto) 87.5 H, Lymph % (Auto) 3.9 L, [place] % (Auto) 5.4, Eos % (Auto) 1.0, Baso % (Auto) 0.1, Absolute Neuts (auto) 12.7 H, Nucleated RBC % 0.3 05/13/19 12:15: PT 15.4 H, INR 1.2, APTT 27.8 05/13/19 12:15: Sodium 141, Potassium 4.2, Chloride 109 H, Carbon Dioxide 19.0 L , Anion Gap 13, BUN 123 H*, Creatinine 3.99 H, Est GFR (MDRD) Af Amer 15 L, Est GFR (MDRD) Non-Af 12 L, BUN/Creatinine Ratio 30.8 H, Glucose 176 H, Calcium 7.8 L, Total Bilirubin 2.70 H, Troponin I 0.241 H 05/13/19 12:15: Phosphorus 6.2 H 05/13/19 12:15: Hemoglobin A1c 5.8 05/13/19 15:07: pH 7.37, Bicarbonate Actual 14.2 L, POC Total CO2 15, Base Excess -11 L, O2 Saturation 99, ABG pCO2 24.8 L, ABG pO2 136 H, Gennaro Test POS 05/13/19 16:55: Magnesium 2.4, Troponin I 0.219 H 05/13/19 16:55: Total Bilirubin 3.20 H, Direct Bilirubin 2.37 H, Indirect Bilirubin 0.80 05/13/19 16:55: Lactic Acid 2.2 H 05/13/19 16:55: Triglycerides 670 H 05/13/19 19:43: Troponin I 0.215 H 05/13/19 19:43: Uric Acid 9.1 H 05/13/19 21:15: Lactic Acid 1.7 05/14/19 00:26: Glucose 241 H 05/14/19 00:31: pH 7.32 L, Bicarbonate Actual 13.8 L, POC Total CO2 15, Base Excess -12 L, O2 Saturation 98, ABG pCO2 26.7 L, ABG pO2 103 H, Gennaro Test NA 05/14/19 04:45: WBC 18.5 H, RBC 4.34, Hgb 13.0, Hct 40.0, MCV 92.2, MCH 30.0, MCHC 32.5, Plt Count 21 L*, Neut % (Auto) Not Reportable, Absolute Neuts (auto) 16.3 H, Total Counted 100, Neutrophils % (Manual) 86 H, Band Neutrophils % 2, Lymphocytes % (Manual) 8 L, Monocytes % (Manual) 4 05/14/19 04:45: PT 15.1 H, INR 1.2 05/14/19 04:45: Sodium 141, Potassium 3.7, Chloride 111 H, Carbon Dioxide 20.0 L , Anion Gap 10, BUN 125 H*, Creatinine 2.91 H, Est GFR (MDRD) Af Amer 21 L, Est GFR (MDRD) Non-Af 17 L, BUN/Creatinine Ratio 43.0 H, Glucose 226 H, Calcium 7.3 L, Phosphorus 4.7, Magnesium 2.3, Total Bilirubin 4.70 H Rhythm: EKG: ECHO: Stress Test: Cardiac Cath: PCI: CT Surgery: Holter monitor: EPS: PPM: CXR: Chest CT Scan: Medical Necessity - Tobacco Use Smoking Status: Former smoker - she quit in 2018 but prior to that she smoked 1- 1/2 packs of cigarettes daily for at least 40 years. Tobacco Use: Cigarettes Assessment/Plan 1. Atrial fibrillation with rapid ventricular response rate. * It is not clear the duration of the above. My recommendation at this time however would be to attempt to slow down her heart rate to improve filling pressures as well as her blood pressure. I would agree with using intravenous amiodarone despite the fact that she is not anticoagulated. An echocardiogram was performed this afternoon which demonstrated overall preserved left ventricular systolic function estimated at 50% with septal hypokinesis and paradoxical septal motion. Over the course of the next few hours further recommendations will be made. * 2. Status post aortic valve replacement * Patient apparently has a history of aortic valve replacement and at this time my recommendation would be for us to continue with aggressive treatment with antibiotics. His aortic valve was not very well evaluated on the transthoracic echocardiogram. I do not see an indication for a transesophageal echocardiogram at this particular time. * Patient appears to be critically ill and supportive measures would be instituted including improving her acute renal failure. I will continue to follow with you. No changes have been noted in the last 24 hours Thank you for allowing me to participate in the care of your patient. Please don't hesitate to call if any issues arise
--- NOTE | 2019-05-14 09:14 | CASEMGMT ---
RN CM Note: participated in ICU interdisciplinary rounds. Pt remains on ventilatory support, Fentanyl, Levophed and Amio gtt. Pt has nephew Trell Reece who is her POA, not present for rounds. Pt unable to participate at this time in rounds. DC planning deferred at this time. -call to [facility]- pt not listed as getting services. Will continue to follow for dc planning. Carlos THOMAS RN ACM
--- NOTE | 2019-05-14 09:23 | CASEMGMT ---
POA form in summary tab of [facility] stating meet Magana is pt's Healthcare POA. SW printed POA form and placed in paper chart. LATRELL Harris
[2019-05-14] MEDS: Famotidine 20 MG Tablet PO (09:46)
[2019-05-14] MEDS: Chlorhexidine 15 ML PO ×2 (09:46→21:41)
[2019-05-14 10:15] LABS: Anion Gap 11 (5-15); BUN 124 mg/dL (7-18); BUN/Creat Ratio 44.6 RATIO (10-20); CPK Total, Creatine Kinase 2500 U/L (26-192); Calcium,Total 7.5 mg/dL (8.5-10.1); Chloride 112 mmol/L (98-107); Creatinine, Serum 2.78 mg/dL (0.55-1.02); EST Glomerular Filtration Rate 18 mL/min (>60); Est Glom Filt Rate - Afr Amer 22 mL/min (>60); Estimated Creatinine Clearance 19.64 ml/min; Glucose 206 mg/dL (74-106); Potassium 3.7 mmol/L (3.5-5.1); Sodium Level 142 mmol/L (136-145)
[2019-05-14] MEDS: Lactated Ringers 500 ML 250 ML IV (10:21)
[2019-05-14] MEDS: Vital AF 1.2 Cal Liquid 1,000 ML 20 ML GT (10:21)
--- NOTE | 2019-05-14 11:01 | PN_ITS ---
Progress Note Patient seen and examined. Discusse with Dr. García. Full consult note to follow. ALBERTO is likely due to ischemic ATN. Renal function is slightly better today and UOP is better. No need for LOADING MANAGER. Patient is still on Levophed (5mcg/min). Does not appear overtly volume OL. Will try 500 mL bolus of IVF. Check urine indices. Will follow. STROKE Vital Signs/Narrative: Vital Signs Pulse Resp Pulse Ox 05/14/19 09:06 107 H 30 H 97 05/14/19 08:00 97
[2019-05-14 11:23] LABS: HIV - WCH Non-Reactive (Nonreactive)
[2019-05-14 11:26] LABS: Bedside Glucose 160 mg/dL (70-110)
[2019-05-14 12:11] LABS: Urine Sodium 16 mmol/L (Not Establ.)
[2019-05-14 13:11] LABS: Pathologist Review Reviewed
[2019-05-14 13:15] LABS: Pathologist Review Reviewed
--- NOTE | 2019-05-14 14:09 | CHAPLAIN ---
Type of Pastoral Visit _x__ Initial Visit ___ Follow-up Visit ___ On-call Visit ___ General Patient Visit ___ Spiritual Assessment ___ Family Conference ___ Bereavement ___ Rapid Response ___ Code Blue ___ Other (describe below) Pastoral Care Referral From ___ Patient ___ Family ___ Nurse ___ Physician ___ [place] Operator ___ Regional Climate Change Analyst _x__ Other (describe below) Sacrament/Intervention ___ Active listening ___ Anointing ___ Scientology ___ Bereavement ___ Communion ___ [place] exploration ___ ___ Life review _x__ Prayer ___ Reconciliation ___ Sacrament of Sick _x__ Supportive presence ___ Wedding ___ Other (describe below) Pastoral Comments patient is intubated and not able to respond; left calling card in room
[2019-05-14 16:55] LABS: Bedside Glucose 130 mg/dL (70-110)
[2019-05-14 18:39] LABS: Hematocrit 38.6 % (37-47); Hemoglobin 13.1 g/dL (12.0-15.0); Mean Corp Hgb Conc 33.9 g/dL (32-36); Mean Corpuscular Hgb 30.8 pg (27.0-32.0); Mean Corpuscular Volume 90.8 fL (81-99); Red Blood Count 4.25 M/mm3 (4.2-5.4); White Blood Count 14.7 K/mm3 (4.4-11.0)
[2019-05-14 18:40] LABS: POSITIVE COUNT YES; POSITIVE DIFFERENTIAL NO; RBC Distribution Width CV 16.3 % (11.6-14.6); RBC Distribution Width SD 54.2 fl (35.1-43.9); Scan Indicated on CBC? Y/N NO
[2019-05-14 18:42] LABS: Platelet Count 17 K/mm3 (150-450)
--- NOTE | 2019-05-14 19:01 | PCM.CONS.R ---
Consultation - Renal 05/14/19 PCP/ Referring MD: Requesting physician: Dr. García Primary care physician: Surya Hickey MD Reason for Consultation:: ALBERTO - History of Present Illness History of Present Illness: The patient is a 64 year old F with history of COPD, HTN, JLUIS, s/p AVR and gout. The patient was brought into the hospital last night after being found unresponsive by a friend. She was found to be hypotensive and needed intubation to protect airway. She also needed to be started on Levophed for BP support as well since BP was as low as 68/38. She is currently intubated and cannot provide history. Chart was reviewed and case discussed with Dr. García. The patient has no prior history of CKD. She presented with Scr of 3.99. She was oliguric until this am. The patient has been subsequently diagnosed with pneumonia. - Allergies Allergies: Allergies Iodinated Contrast Media [CONTRASTS] Allergy (Verified 04/08/19 09:57) Swelling lidocaine [From Lidoderm] Allergy (Verified 04/08/19 09:57) Rash - Current Medications Current Medications: Current Medications Acetaminophen (Tylenol Liquid) 650 mg NG Q6 [facility] Last Admin: 05/14/19 16:51 Dose: 650 mg Documented by: Calamine/Phenol (Calmoseptine Ointment) 1 applic TOPICAL TID [facility]; Protocol Last Admin: 05/14/19 14:06 Dose: 1 applicatio Documented by: Chlorhexidine Gluconate () 1 each TOPICAL DAILY [facility] Last Admin: 05/14/19 05:06 Dose: 1 each Documented by: Chlorhexidine Gluconate () 15 ml PO BID [facility] Last Admin: 05/14/19 09:46 Dose: 15 ml Documented by: Dextrose (D50w Syringe) 0 gm IV X1 PRN; Protocol PRN Reason: Hypoglycemia Last Admin: 05/13/19 23:56 Dose: 12.5 gm Documented by: Famotidine (Pepcid) 20 mg PO DAILY [facility] Last Admin: 05/14/19 09:46 Dose: 20 mg Documented by: Glucagon () 1 mg IM .X1 PRN PRN Reason: Hypoglycemia Norepinephrine Bitartrate 8 mg (/ Sodium Chloride) 250 mls @ 9.375 mls/hr CONT INF .[id number] [facility]; Protocol Last Titration: 05/14/19 18:00 Dose: 0 mcg/min, 0 mls/hr Documented by: Vancomycin IV Pharmacy to Dose (1 ea/ Sodium Chloride) 500 mls @ 250 mls/hr IV PRN PRN; Protocol PRN Reason: Rx to Dose Piperacillin Sod/Tazobactam (Sod 3.375 gm/ Sodium Chloride) 50 mls @ 12.5 mls/hr IV Q12 [facility] Last Infusion: 05/14/19 15:32 Dose: Infused Documented by: Fentanyl () 100 mls @ 2.5 mls/hr IV UD [facility]; Protocol Last Admin: 05/14/19 18:23 Dose: Not Given Documented by: Enteral Nutritional Formula (Vital Af 1.2 Cesar Liquid) 1,000 mls @ 20 mls/hr GT .Q48H [facility] Last Admin: 05/14/19 10:21 Dose: 20 mls/hr Documented by: Insulin Human Lispro (Humalog Kwikpen (Bkc)) 0 unit SC Q6 [facility]; Protocol Last Admin: 05/14/19 16:51 Dose: Not Given Documented by: Nystatin (Mycostatin Powder) 1 applic TOPICAL TID [facility]; Protocol Last Admin: 05/14/19 14:07 Dose: 1 applicatio Documented by: Ondansetron HCl (Zofran) 4 mg IV Q8H PRN PRN PRN Reason: NAUSEA/VOMITING Sodium Chloride () 10 - 40 ml IV UD PRN PRN Reason: Multilumen/Santos Flush Last Admin: 05/14/19 09:46 Dose: 10 ml Documented by: Sodium Chloride (0.9% Nacl (Sterile) Posiflush) 10 - 40 ml IV UD PRN PRN Reason: Port access or dressing change Sodium Chloride () 10 - 40 ml IV UD PRN PRN Reason: SALINE FLUSH - Past Medical History Past Medical History (Chronic Problems): Chronic Problems (Last Reviewed 05/13/19 @ 20:07 by Trupti Bagley DO) History of aortic valve replacement with bioprosthetic valve (Chronic) Tobacco dependence in remission (Chronic) quit in 2018 after smoking 1 and 1/2 PPD for 40 years Benzodiazepine dependence (Chronic) COPD (chronic obstructive pulmonary disease) case management patient (Chronic) Obstructive sleep apnea (Chronic) complaint with CPAP per nephew but has not had a sleep study in many years and she has gained a lot of wt. Anxiety (Chronic) Depression (Chronic) GERD (gastroesophageal reflux disease) (Chronic) Hyperlipidemia (Chronic) Morbid obesity (Chronic) Degenerative disc disease (Chronic) HTN (hypertension) (Chronic) Opiate dependence (Chronic) - Past Surgical History Surgical History: cholecystectomy, - - AVR, right ankle surgery x2, hysterectomy x2, tonsillectomy - Social History Smoking Status: Former smoker - she quit in 2018 but prior to that she smoked 1-1/2 packs of cigarettes daily for at least 40 years. Alcohol: None Drugs: None - Family History Maternal Family History: Family History (Last Reviewed 05/13/19 @ 20:09 by Trupti Bagley DO) Mother Hypertension Heart disease Diabetes CVA (cerebral vascular accident) History Items: Diabetes, - - from aneurysm, unknown type Paternal Family History: Family History (Last Reviewed 05/13/19 @ 20:09 by Trupti Bagley DO) Mother Hypertension Heart disease Diabetes CVA (cerebral vascular accident) History Items: - - Denies known paternal medical history including cardiac history. Review of Systems Unable to obtain accurate/complete ROS d/t: due to intubation. Patient Problems: Active and Suspected Problems (Last Reviewed 05/13/19 @ 20:07 by Trupti Bagley DO) Acute respiratory failure with hypoxia (Acute) Atrial fibrillation with rapid ventricular response (Acute) Thrombocytopenia (Acute) Dehydration (Acute) Septic shock (Acute) Acute febrile illness (Acute) source not yet identified Rhabdomyolysis (Acute) ARF (acute renal failure) (Acute) Uremic encephalopathy (Acute) Abnormal LFTs (Acute) Metabolic acidosis (Acute) Lactic acidosis (Acute) - Physical Exam Vitals/I&O's: Vital Signs Temp Pulse Resp BP Pulse Ox 101.7 F H 114 H 32 H 105/57 L 95 05/14/19 18:00 05/14/19 18:00 05/14/19 18:00 05/14/19 18:00 05/14/19 18:00 Oxygen Delivery Method Mechanical Ventilator Weight: 134.3 kg Body Mass Index (BMI) 45.2 Finger Stick Blood Glucose 180 Intake and Output for Last 24 Hours 05/12/19 05/13/19 05/14/19 23:59 23:59 23:59 Intake Total 5138.45 / 5247.09 1970.35 / 1970.35 Output Total 550 / 550 950 / 950 Balance 4588.45 / 4697.09 1020.35 / 1020.35 General: - - Sedated HEENT: Atraumatic, Normocephalic, - - Intubated Oral: Moist Mucosa Neck: Supple Lungs: Rhonchi Cardiovascular: Irregular Rate - and rhythm, Tachycardic Abdomen: Soft, Non Tender, Obese Extremities: No edema Skin: No rashes Musculoskeletal: No Tenderness to Palpation of Joints or Extremities Lymphatic: No Cervical, Supraclavicular, or Inguinal Adenopathy Microbiology Past 72 Hours 05/13/19 22:55 Sputum, Induced/Lukens Gram Stain - Final 05/13/19 22:55 Sputum, Induced/Lukens Respiratory Culture - Preliminary Mixed Culture 05/13/19 19:40 Blood Culture (Wb) - Left Forearm Blood Culture - Preliminary 05/13/19 11:54 Blood Culture (Wb) - Left Hand Blood Culture - Preliminary Gram negative joan 05/13/19 18:15 Blood Culture (Wb) - Central Line Blood Culture - Preliminary 05/13/19 11:40 Blood Culture (Wb) - Anticubital Left Blood Culture - Preliminary Laboratory Results 05/13/19 12:15: Diff Path Review Reviewed 05/13/19 16:55: Blood Type O POSITIVE 05/13/19 19:25: MRSA (PCR) Negative 05/13/19 19:43: Troponin I 0.215 H 05/13/19 19:43: Uric Acid 9.1 H, Lipase 460 H 05/13/19 21:15: Lactic Acid 1.7 05/13/19 23:51: POC Glucose 55 L 05/14/19 00:21: POC Glucose 33 L* 05/14/19 00:26: Glucose 241 H 05/14/19 00:31: Specimen Type ART, Sample Site R Brachial, pH 7.32 L, Bicarbonate Actual 13.8 L, POC Total CO2 15, Base Excess -12 L, O2 Saturation 98, O2 % 55, ABG pCO2 26.7 L, ABG pO2 103 H, Gennaro Test NA, Respiration Rate 12, O2 Delivery Device Vent, Minute Volume 16.00, Vent Mode A-C, Tidal Volume 450, POC PEEP 5, Blood Gas Notified Whom TELLO CHAN, Blood Gas Notified Time 28 05/14/19 04:45: WBC 18.5 H, RBC 4.34, Hgb 13.0, Hct 40.0, MCV 92.2, MCH 30.0, MCHC 32.5, RDW Std Deviation 55.4 H, RDW Coeff of Pierre 16.3 H, Plt Count 21 L*, Neut % (Auto) Not Reportable, Absolute Neuts (auto) 16.3 H, Absolute Lymphs (auto) 1.48, Total Counted 100, Neutrophils % (Manual) 86 H, Band Neutrophils % 2, Lymphocytes % (Manual) 8 L, Monocytes % (Manual) 4, Nucleated RBCs/100 WBC 1, Diff Path Review Reviewed, Platelet Estimate MKD DEC, Plt Morphology Comment LARGE, RBC Morphology NORM C+C 05/14/19 04:45: PT 15.1 H, INR 1.2 05/14/19 04:45: Sodium 141, Potassium 3.7, Chloride 111 H, Carbon Dioxide 20.0 L, Anion Gap 10, BUN 125 H*, Creatinine 2.91 H, Estim Creat Clear Calc 18.76, Est GFR (MDRD) Af Amer 21 L, Est GFR (MDRD) Non-Af 17 L, BUN/Creatinine Ratio 43.0 H, Glucose 226 H, Calcium 7.3 L, Phosphorus 4.7, Magnesium 2.3, Total Bilirubin 4.70 H, AST 496 H, ALT 164 H, Alkaline Phosphatase 308 H, Total Protein 5.8 L, Albumin 1.8 L, Globulin 4.0, Albumin/Globulin Ratio 0.4 L 05/14/19 05:19: POC Glucose 194 H 05/14/19 08:00: Hepatitis A IgM Ab Pending, Hep Bs Antigen Pending, Hep B Core IgM Ab Pending, Hepatitis Interpret Pending 05/14/19 09:30: Sodium 142, Potassium 3.7, Chloride 112 H, Carbon Dioxide 19.0 L, Anion Gap 11, BUN 124 H*, Creatinine 2.78 H, Estim Creat Clear Calc 19.64, Est GFR (MDRD) Af Amer 22 L, Est GFR (MDRD) Non-Af 18 L, BUN/Creatinine Ratio 44.6 H, Glucose 206 H, Calcium 7.5 L, Total Creatine Kinase 2500 H 05/14/19 11:23: POC Glucose 160 H 05/14/19 11:45: Urine Creatinine 55.20 05/14/19 11:45: Ur Random Sodium 16 05/14/19 16:40: POC Glucose 130 H 05/14/19 17:20: WBC 14.7 H, RBC 4.25, Hgb 13.1, Hct 38.6, MCV 90.8, MCH 30.8, MCHC 33.9, RDW Std Deviation 54.2 H, RDW Coeff of Pierre 16.3 H, Plt Count 17 L*, MPV TNP, Diff Path Review November05/14/19 : HIV 1&2 Antibody Non-Reactive Current Medications Acetaminophen (Tylenol Liquid) 650 mg NG Q6 [facility] Last Admin: 05/14/19 16:51 Dose: 650 mg Documented by: Calamine/Phenol (Calmoseptine Ointment) 1 applic TOPICAL TID [facility]; Protocol Last Admin: 05/14/19 14:06 Dose: 1 applicatio Documented by: Chlorhexidine Gluconate () 1 each TOPICAL DAILY [facility] Last Admin: 05/14/19 05:06 Dose: 1 each Documented by: Chlorhexidine Gluconate () 15 ml PO BID [facility] Last Admin: 05/14/19 09:46 Dose: 15 ml Documented by: Dextrose (D50w Syringe) 0 gm IV X1 PRN; Protocol PRN Reason: Hypoglycemia Last Admin: 05/13/19 23:56 Dose: 12.5 gm Documented by: Famotidine (Pepcid) 20 mg PO DAILY [facility] Last Admin: 05/14/19 09:46 Dose: 20 mg Documented by: Glucagon () 1 mg IM .X1 PRN PRN Reason: Hypoglycemia Norepinephrine Bitartrate 8 mg (/ Sodium Chloride) 250 mls @ 9.375 mls/hr CONT INF .[id number] [facility]; Protocol Last Titration: 05/14/19 18:00 Dose: 0 mcg/min, 0 mls/hr Documented by: Vancomycin IV Pharmacy to Dose (1 ea/ Sodium Chloride) 500 mls @ 250 mls/hr IV PRN PRN; Protocol PRN Reason: Rx to Dose Piperacillin Sod/Tazobactam (Sod 3.375 gm/ Sodium Chloride) 50 mls @ 12.5 mls/hr IV Q12 [facility] Last Infusion: 05/14/19 15:32 Dose: Infused Documented by: Fentanyl () 100 mls @ 2.5 mls/hr IV UD [facility]; Protocol Last Admin: 05/14/19 18:23 Dose: Not Given Documented by: Enteral Nutritional Formula (Vital Af 1.2 Cesar Liquid) 1,000 mls @ 20 mls/hr GT .Q48H [facility] Last Admin: 05/14/19 10:21 Dose: 20 mls/hr Documented by: Insulin Human Lispro (Humalog Kwikpen (Bkc)) 0 unit SC Q6 [facility]; Protocol Last Admin: 05/14/19 16:51 Dose: Not Given Documented by: Nystatin (Mycostatin Powder) 1 applic TOPICAL TID [facility]; Protocol Last Admin: 05/14/19 14:07 Dose: 1 applicatio Documented by: Ondansetron HCl (Zofran) 4 mg IV Q8H PRN PRN PRN Reason: NAUSEA/VOMITING Sodium Chloride () 10 - 40 ml IV UD PRN PRN Reason: Multilumen/Santos Flush Last Admin: 05/14/19 09:46 Dose: 10 ml Documented by: Sodium Chloride (0.9% Nacl (Sterile) Posiflush) 10 - 40 ml IV UD PRN PRN Reason: Port access or dressing change Sodium Chloride () 10 - 40 ml IV UD PRN PRN Reason: SALINE FLUSH Assessment/Plan All Active Problems (Last Reviewed 05/13/19 @ 20:07 by Trupti Bagley DO) Acute respiratory failure with hypoxia (Acute) Atrial fibrillation with rapid ventricular response (Acute) Thrombocytopenia (Acute) Dehydration (Acute) Septic shock (Acute) Acute febrile illness (Acute) Rhabdomyolysis (Acute) ARF (acute renal failure) (Acute) Uremic encephalopathy (Acute) Abnormal LFTs (Acute) Metabolic acidosis (Acute) Lactic acidosis (Acute) Cat bite involving extremity (Resolved) Cellulitis (Resolved) Dysphagia (Resolved) Ulcer of right lower leg (Resolved) 1. Acute kidney injury. No prior history of CKD or prior SCr for comparison. ALBERTO is likely due to ischemic ATN related to septic shock. There is also component of ALBERTO from effective volume depletion. No RBC or significant protein in the urine to suggest acute GN. No hydronephrosis on abdominal CT. She does have thrombocytopenia, but low suspicion for aHUS at this point since renal function has improved and Hgb is stable. Urine output has picked up with volume resuscitation. No urgent need for CONVENTION MANAGER. Keep MAP>65. Avoid nephrotoxins such as NSAID/IV contrast. Will give 500 mL IVF bolus today and reassess tomorrow. 2. Acute hypoxic respiratory failure. Has pneumonia. Antibiotic as per hospitalist. Vent management as per frame wirer.
[2019-05-14] MEDS: fentaNYL drip 100 ML 5 MCG IV (22:32)
[2019-05-14 23:36] LABS: Bedside Glucose 222 mg/dL (70-110)
[2019-05-15] VITALS (55 sets, daily range): BP systolic 58–166; BP diastolic 37–151; PULSE 93–138; RESP 12–49; TEMP 37.7–40.6; O2SAT 86–100
[2019-05-15] MEDS: Amiodarone 200 MG Tablet PO ×3 (01:57→21:43)
[2019-05-15 04:07] LABS: HEPATITIS B SURFACE AG Negative (Negative); Hepatitis A IgM Antibody Negative (Negative)
[2019-05-15 05:25] LABS: Absolute Lymphocyte Count 0.95 X10^3/uL (0.83-4.51); Absolute Neutrophil Count 13.5 X10^3/uL (2.0-7.7); Basophil# 0.06 X10^3/uL; Basophil% 0.4 % (0-1); Eosinophil# 0.02 X10^3/uL; Eosinophils% 0.1 % (0-5); Hematocrit 37.2 % (37-47); Hemoglobin 12.6 g/dL (12.0-15.0); Lymphocyte # 0.95 X10^3/ul (4.0); Lymphocyte % 5.7 % (19-41); Mean Corp Hgb Conc 33.9 g/dL (32-36); Mean Corpuscular Hgb 30.6 pg (27.0-32.0); Mean Corpuscular Volume 90.3 fL (81-99); Monocyte# 1.44 X10^3/uL; Monocyte% 8.6 % (0-10); NRBC Flagged by Analyzer 0 % (0-5); Neutrophil # 13.52 X10^3/uL (2.7-7.7); Neutrophil % 80.4 % (47-70); POSITIVE COUNT YES; POSITIVE MORPHOLOGY YES; RBC Distribution Width CV 16.2 % (11.6-14.6); RBC Distribution Width SD 53.7 fl (35.1-43.9); Red Blood Count 4.12 M/mm3 (4.2-5.4); White Blood Count 16.8 K/mm3 (4.4-11.0)
[2019-05-15 05:32] LABS: Differential Indicated SCAN CRITERIA MET; Platelet Count 30 K/mm3 (150-450)
[2019-05-15 05:46] LABS: Vancomycin, Random Level 11.7 ug/mL (0.0-15.0)
[2019-05-15] MEDS: Acetaminophen 650 MG/20 ML UDC NG ×4 (05:49→23:07)
[2019-05-15] MEDS: Insulin Lispro 100 UNIT/ML INSULN.PEN SC ×2 (05:49→23:35)
[2019-05-15] MEDS: Nystatin Powder 15gm Bottle 1 APPLIC TOPICAL ×3 (05:49→21:43)
[2019-05-15] MEDS: Menthol/Lanolin/Calamine/Znox 113 GM Tube 1 APPLIC TOPICAL ×3 (05:50→21:43)
[2019-05-15 06:05] LABS: ALB/GLOB Ratio 0.5 RATIO (0.9-2.4); AST(SGOT) 237 U/L (15-37); Alanine Aminotransfer ALT/SGPT 112 U/L (13-56); Albumin, Serum 1.8 g/dL (3.2-5.0); Alkaline Phosphatase 234 U/L (45-117); Anion Gap 9 (5-15); BUN 124 mg/dL (7-18); BUN/Creat Ratio 51.2 RATIO (10-20); CPK Total, Creatine Kinase 1557 U/L (26-192); Calcium,Total 7.7 mg/dL (8.5-10.1); Chloride 117 mmol/L (98-107); Creatinine, Serum 2.42 mg/dL (0.55-1.02); Differential Comment SCANNED; EST Glomerular Filtration Rate 22 mL/min (>60); Est Glom Filt Rate - Afr Amer 26 mL/min (>60); Estimated Creatinine Clearance 22.56 ml/min; Globulin 3.8 g/dL (2.2-4.2); Glucose 193 mg/dL (74-106); Magnesium 2.3 mg/dL (1.6-2.6); Phosphorus 2.7 mg/dL (2.5-4.9); Potassium 3.5 mmol/L (3.5-5.1); Protein, Total 5.6 g/dL (6.4-8.2); Sodium Level 145 mmol/L (136-145)
[2019-05-15 06:06] LABS: Platelet Estimate MKD DEC (ADEQ); Platelet Morphology LARGE
[2019-05-15 06:06] LABS: Bedside Glucose 180 mg/dL (70-110)
--- NOTE | 2019-05-15 06:41 | PCM.PN.INT ---
Subjective: The patient was seen and examined at the bedside this morning. Events from the last 24 hours have been reviewed. The patient is currently febrile with a T-max overnight of 103 ?F. She remains on assist control mode of mechanical ventilation with an FiO2 requirement of 40%. The patient failed her spontaneous awakening/breathing trial this morning due to the development of significant tachycardia and tachypnea. The patient's Levophed was able to be discontinued last evening at 10:30 PM. The patient is currently only receiving 50 mcg of fentanyl for sedation. Platelet count is improved this morning to 30,000. Although creatinine is improved to 2.42, BUN remains elevated at 124. Total bilirubin and transaminase levels are now improving. The patient is currently documented to be overall net +6 L for the admission. Objective: The patient's most recent lab work, culture data and imaging studies have all been personally reviewed. Initial CT head revealed no acute intracranial process. CT abdomen/pelvis revealed colonic diverticulosis without obstruction along with incidental bilateral lower lung infiltrates. Surface echocardiogram revealed normal LV size and function with an ejection fraction of 50%. Initial blood cultures dated May 13 were positive for the presence of gram-negative rods. Sputum and urine cultures are currently pending. General: - - Remains intubated and mechanically ventilated. HEENT: Atraumatic, PERRLA, Normocephalic Oral: Moist Mucosa, - - Endotracheal and OG tubes remain in place. Neck: Supple, No Nodes, Trachea Midline, - - Left-sided temporary central venous catheter in place Lungs: No rhonchi, No wheeze, No rales, Diminished Cardiovascular: Normal S1, Normal S2, Irregular Rate, Tachycardic Abdomen: Bowel Sounds Present, Soft, Non Tender, Obese Extremities: No clubbing, Cyanosis, Diminished Peripheral Pulses Skin: No breakdown Musculoskeletal: No Muscle Wasting Lymphatic: No Cervical, Supraclavicular, or Inguinal Adenopathy Neurological: - - Opens eyes to name and verbal stimulation. Shakes head no to all questions. Still not following simple commands. Vital Signs Temp Pulse Resp BP Pulse Ox 101.4 F H 114 H 28 H 120/94 H 94 05/15/19 06:00 05/15/19 06:00 05/15/19 06:00 05/15/19 06:00 05/15/19 04:00 Oxygen Delivery Method Mechanical Ventilator Weight: 297 lb 13.512 oz Body Mass Index (BMI) 45.2 Finger Stick Blood Glucose 180 Intake and Output for Last 24 Hours 05/13/19 05/14/19 05/15/19 23:59 23:59 23:59 Intake Total 5138.45 / 5247.09 2357.35 / 2462.35 875.0 / 875.0 Output Total 550 / 550 1350 / 1350 450 / 450 Balance 4588.45 / 4697.09 1007.35 / 1112.35 425.0 / 425.0 Labs (Last 48 Hours) 05/13/19 05/13/19 05/13/19 10:16 10:49 10:49 WBC RBC Hgb Hct MCV MCH MCHC RDW Std Deviation RDW Coeff of Pierre Plt Count MPV Immature Gran % (Auto) Neut % (Auto) Lymph % (Auto) Hartley % (Auto) Eos % (Auto) Baso % (Auto) Absolute Neuts (auto) Absolute Lymphs (auto) Total Counted Neutrophils % (Manual) Band Neutrophils % Lymphocytes % (Manual) Monocytes % (Manual) Nucleated RBC % Nucleated RBCs/100 WBC Differential Comment Diff Path Review Platelet Estimate Plt Morphology Comment RBC Morphology Crenated Cell ESR Haptoglobin PT INR APTT Fibrinogen Specimen Type ART Sample Site R Brachial pH 7.25 L Bicarbonate Actual 16.4 L POC Total CO2 18 Base Excess -11 L O2 Saturation 97 O2 % 70 ABG pCO2 37.8 ABG pO2 101 H Gennaro Test NA Respiration Rate 12 O2 Delivery Device Vent Minute Volume 5.00 Vent Mode A-C Tidal Volume 450 POC PEEP 5 Blood Gas Notified Whom ED Blood Gas Notified Time 1020 Sodium Potassium Chloride Carbon Dioxide Anion Gap BUN Creatinine Estim Creat Clear Calc Est GFR (MDRD) Af Amer Est GFR (MDRD) Non-Af BUN/Creatinine Ratio Glucose Hemoglobin A1c Lactic Acid Uric Acid Calcium Phosphorus Magnesium Total Bilirubin Direct Bilirubin Indirect Bilirubin GGT AST ALT Alkaline Phosphatase Lactate Dehydrogenase Total Creatine Kinase Troponin I C-React Prot Ext Range Total Protein Albumin Globulin Albumin/Globulin Ratio Triglycerides Lipase Urine Color Yellow Urine Clarity Cloudy Urine pH 6.0 Ur Specific Keeler 1.015 Urine Protein 30 H Urine Glucose (UA) Normal Urine Ketones 5 H Urine Occult Blood 250 H Urine Nitrite Negative Urine Bilirubin 1 H Urine Urobilinogen 8 H Ur Leukocyte Esterase 25 H Urine RBC 0 SEEN Urine WBC 0-5 SEEN Ur Squamous Epith Cells 0 SEEN Urine Bacteria 0 SEEN Urine Mucus 0 SEEN Ur Random Sodium Urine Creatinine Random Vancomycin Urine Opiates Screen NEGATIVE Urine Methadone Screen NEGATIVE Ur Barbiturates Screen NEGATIVE Ur Phencyclidine Scrn NEGATIVE Ur Amphetamines Screen NEGATIVE U Methamphetamin-MDMA POSITIVE H U Benzodiazepines Scrn NEGATIVE Urine Cocaine Screen NEGATIVE U Cannabinoids Screen NEGATIVE Ur Drug Screen Comment Ethyl Alcohol Rheumatoid Factor GRAY Screen KASIA-1 Antibody SS-A/Ro IgG Antibody SS-B/La IgG Antibody Sm (Baxter) Antibody [employer] UNDERWRITER Antibody Scl-70 Scleroderma Ab Double Strand DNA Ab Centromere B Antibody Hepatitis A IgM Ab Hep Bs Antigen Hep B Core IgM Ab Hepatitis Interpret HIV 1&2 Antibody MRSA (PCR) POC Glucose Blood Type Direct Antiglob Test 05/13/19 05/13/19 05/13/19 11:40 12:15 12:15 WBC 14.5 H RBC 4.34 Hgb 13.3 Hct 40.7 MCV 93.8 MCH 30.6 MCHC 32.7 RDW Std Deviation 57.0 H RDW Coeff of Pierre 16.3 H Plt Count 20 L* MPV TNP Immature Gran % (Auto) 2.100 H Neut % (Auto) 87.5 H Lymph % (Auto) 3.9 L Hartley % (Auto) 5.4 Eos % (Auto) 1.0 Baso % (Auto) 0.1 Absolute Neuts (auto) 12.7 H Absolute Lymphs (auto) 0.56 L Total Counted Neutrophils % (Manual) Band Neutrophils % Lymphocytes % (Manual) Monocytes % (Manual) Nucleated RBC % 0.3 Nucleated RBCs/100 WBC Differential Comment Diff Path Review Reviewed Platelet Estimate Plt Morphology Comment RBC Morphology Crenated Cell 1+ ESR Haptoglobin PT 15.4 H INR 1.2 APTT 27.8 Fibrinogen Specimen Type Sample Site pH Bicarbonate Actual POC Total CO2 Base Excess O2 Saturation O2 % ABG pCO2 ABG pO2 Gennaro Test Respiration Rate O2 Delivery Device Minute Volume Vent Mode Tidal Volume POC PEEP Blood Gas Notified Whom Blood Gas Notified Time Sodium Potassium Chloride Carbon Dioxide Anion Gap BUN Creatinine Estim Creat Clear Calc Est GFR (MDRD) Af Amer Est GFR (MDRD) Non-Af BUN/Creatinine Ratio Glucose Hemoglobin A1c Lactic Acid 2.7 H Uric Acid Calcium Phosphorus Magnesium Total Bilirubin Direct Bilirubin Indirect Bilirubin GGT AST ALT Alkaline Phosphatase Lactate Dehydrogenase Total Creatine Kinase Troponin I C-React Prot Ext Range Total Protein Albumin Globulin Albumin/Globulin Ratio Triglycerides Lipase Urine Color Urine Clarity Urine pH Ur Specific Keeler Urine Protein Urine Glucose (UA) Urine Ketones Urine Occult Blood Urine Nitrite Urine Bilirubin Urine Urobilinogen Ur Leukocyte Esterase Urine RBC Urine WBC Ur Squamous Epith Cells Urine Bacteria Urine Mucus Ur Random Sodium Urine Creatinine Random Vancomycin Urine Opiates Screen Urine Methadone Screen Ur Barbiturates Screen Ur Phencyclidine Scrn Ur Amphetamines Screen U Methamphetamin-MDMA U Benzodiazepines Scrn Urine Cocaine Screen U Cannabinoids Screen Ur Drug Screen Comment Ethyl Alcohol Rheumatoid Factor GRAY Screen KASIA-1 Antibody SS-A/Ro IgG Antibody SS-B/La IgG Antibody Sm (Baxter) Antibody [employer] UNDERWRITER Antibody Scl-70 Scleroderma Ab Double Strand DNA Ab Centromere B Antibody Hepatitis A IgM Ab Hep Bs Antigen Hep B Core IgM Ab Hepatitis Interpret HIV 1&2 Antibody MRSA (PCR) POC Glucose Blood Type Direct Antiglob Test 05/13/19 05/13/19 05/13/19 12:15 12:15 12:15 WBC RBC Hgb Hct MCV MCH MCHC RDW Std Deviation RDW Coeff of Pierre Plt Count MPV Immature Gran % (Auto) Neut % (Auto) Lymph % (Auto) Hartley % (Auto) Eos % (Auto) Baso % (Auto) Absolute Neuts (auto) Absolute Lymphs (auto) Total Counted Neutrophils % (Manual) Band Neutrophils % Lymphocytes % (Manual) Monocytes % (Manual) Nucleated RBC % Nucleated RBCs/100 WBC Differential Comment Diff Path Review Platelet Estimate Plt Morphology Comment RBC Morphology Crenated Cell ESR Haptoglobin PT INR APTT Fibrinogen Specimen Type Sample Site pH Bicarbonate Actual POC Total CO2 Base Excess O2 Saturation O2 % ABG pCO2 ABG pO2 Gennaro Test Respiration Rate O2 Delivery Device Minute Volume Vent Mode Tidal Volume POC PEEP Blood Gas Notified Whom Blood Gas Notified Time Sodium 141 Potassium 4.2 Chloride 109 H Carbon Dioxide 19.0 L Anion Gap 13 BUN 123 H* Creatinine 3.99 H Estim Creat Clear Calc 14.22 Est GFR (MDRD) Af Amer 15 L Est GFR (MDRD) Non-Af 12 L BUN/Creatinine Ratio 30.8 H Glucose 176 H Hemoglobin A1c Lactic Acid Uric Acid Calcium 7.8 L Phosphorus 6.2 H Magnesium Total Bilirubin 2.70 H Direct Bilirubin Indirect Bilirubin GGT AST 241 H ALT 83 H Alkaline Phosphatase 247 H Lactate Dehydrogenase Total Creatine Kinase 3819 H Troponin I 0.241 H C-React Prot Ext Range Total Protein 6.0 L Albumin 1.8 L Globulin 4.2 Albumin/Globulin Ratio 0.4 L Triglycerides Lipase Urine Color Urine Clarity Urine pH Ur Specific Keeler Urine Protein Urine Glucose (UA) Urine Ketones Urine Occult Blood Urine Nitrite Urine Bilirubin Urine Urobilinogen Ur Leukocyte Esterase Urine RBC Urine WBC Ur Squamous Epith Cells Urine Bacteria Urine Mucus Ur Random Sodium Urine Creatinine Random Vancomycin Urine Opiates Screen Urine Methadone Screen Ur Barbiturates Screen Ur Phencyclidine Scrn Ur Amphetamines Screen U Methamphetamin-MDMA U Benzodiazepines Scrn Urine Cocaine Screen U Cannabinoids Screen Ur Drug Screen Comment Ethyl Alcohol 3.0 Rheumatoid Factor GRAY Screen KASIA-1 Antibody SS-A/Ro IgG Antibody SS-B/La IgG Antibody Sm (Baxter) Antibody [employer] UND[employer]WRITER Antibody Scl-70 Scleroderma Ab Double Strand DNA Ab Centromere B Antibody Hepatitis A IgM Ab Hep Bs Antigen Hep B Core IgM Ab Hepatitis Interpret HIV 1&2 Antibody MRSA (PCR) POC Glucose Blood Type Direct Antiglob Test 05/13/19 05/13/19 05/13/19 12:15 15:07 16:35 WBC RBC Hgb Hct MCV MCH MCHC RDW Std Deviation RDW Coeff of Pierre Plt Count MPV Immature Gran % (Auto) Neut % (Auto) Lymph % (Auto) Hartley % (Auto) Eos % (Auto) Baso % (Auto) Absolute Neuts (auto) Absolute Lymphs (auto) Total Counted Neutrophils % (Manual) Band Neutrophils % Lymphocytes % (Manual) Monocytes % (Manual) Nucleated RBC % Nucleated RBCs/100 WBC Differential Comment Diff Path Review Platelet Estimate Plt Morphology Comment RBC Morphology Crenated Cell ESR Haptoglobin PT INR APTT Fibrinogen Specimen Type ART Sample Site R Brachial pH 7.37 Bicarbonate Actual 14.2 L POC Total CO2 15 Base Excess -11 L O2 Saturation 99 O2 % 55 ABG pCO2 24.8 L ABG pO2 136 H Gennaro Test POS Respiration Rate 12 O2 Delivery Device Vent Minute Volume 9.00 Vent Mode A-C Tidal Volume 450 POC PEEP 5 Blood Gas Notified Whom ICU Blood Gas Notified Time 1458 Sodium Potassium Chloride Carbon Dioxide Anion Gap BUN Creatinine Estim Creat Clear Calc Est GFR (MDRD) Af Amer Est GFR (MDRD) Non-Af BUN/Creatinine Ratio Glucose Hemoglobin A1c 5.8 Lactic Acid Uric Acid Calcium Phosphorus Magnesium Total Bilirubin Direct Bilirubin Indirect Bilirubin GGT AST ALT Alkaline Phosphatase Lactate Dehydrogenase Total Creatine Kinase Troponin I C-React Prot Ext Range Total Protein Albumin Globulin Albumin/Globulin Ratio Triglycerides Lipase Urine Color Urine Clarity Urine pH Ur Specific Keeler Urine Protein Urine Glucose (UA) Urine Ketones Urine Occult Blood Urine Nitrite Urine Bilirubin Urine Urobilinogen Ur Leukocyte Esterase Urine RBC Urine WBC Ur Squamous Epith Cells Urine Bacteria Urine Mucus Ur Random Sodium Urine Creatinine Random Vancomycin Urine Opiates Screen Urine Methadone Screen Ur Barbiturates Screen Ur Phencyclidine Scrn Ur Amphetamines Screen U Methamphetamin-MDMA U Benzodiazepines Scrn Urine Cocaine Screen U Cannabinoids Screen Ur Drug Screen Comment Ethyl Alcohol Rheumatoid Factor GRAY Screen KASIA-1 Antibody SS-A/Ro IgG Antibody SS-B/La IgG Antibody Sm (Baxter) Antibody [employer] UNDERWRITER Antibody Scl-70 Scleroderma Ab Double Strand DNA Ab Centromere B Antibody Hepatitis A IgM Ab Hep Bs Antigen Hep B Core IgM Ab Hepatitis Interpret HIV 1&2 Antibody MRSA (PCR) POC Glucose Blood Type Direct Antiglob Test NEG w/POLYSPECIFIC 05/13/19 05/13/19 05/13/19 16:55 16:55 16:55 WBC RBC Hgb Hct MCV MCH MCHC RDW Std Deviation RDW Coeff of Pierre Plt Count MPV Immature Gran % (Auto) Neut % (Auto) Lymph % (Auto) Hartley % (Auto) Eos % (Auto) Baso % (Auto) Absolute Neuts (auto) Absolute Lymphs (auto) Total Counted Neutrophils % (Manual) Band Neutrophils % Lymphocytes % (Manual) Monocytes % (Manual) Nucleated RBC % Nucleated RBCs/100 WBC Differential Comment Diff Path Review Platelet Estimate Plt Morphology Comment RBC Morphology Crenated Cell ESR Haptoglobin PT INR APTT Fibrinogen Specimen Type Sample Site pH Bicarbonate Actual POC Total CO2 Base Excess O2 Saturation O2 % ABG pCO2 ABG pO2 Gennaro Test Respiration Rate O2 Delivery Device Minute Volume Vent Mode Tidal Volume POC PEEP Blood Gas Notified Whom Blood Gas Notified Time Sodium Potassium Chloride Carbon Dioxide Anion Gap BUN Creatinine Estim Creat Clear Calc Est GFR (MDRD) Af Amer Est GFR (MDRD) Non-Af BUN/Creatinine Ratio Glucose Hemoglobin A1c Lactic Acid 2.2 H Uric Acid Calcium Phosphorus Magnesium 2.4 Total Bilirubin 3.20 H Direct Bilirubin 2.37 H Indirect Bilirubin 0.80 GGT 83 H AST ALT Alkaline Phosphatase Lactate Dehydrogenase 528 H Total Creatine Kinase Troponin I 0.219 H C-React Prot Ext Range 190.00 H Total Protein Albumin Globulin Albumin/Globulin Ratio Triglycerides Lipase Urine Color Urine Clarity Urine pH Ur Specific Keeler Urine Protein Urine Glucose (UA) Urine Ketones Urine Occult Blood Urine Nitrite Urine Bilirubin Urine Urobilinogen Ur Leukocyte Esterase Urine RBC Urine WBC Ur Squamous Epith Cells Urine Bacteria Urine Mucus Ur Random Sodium Urine Creatinine Random Vancomycin Urine Opiates Screen Urine Methadone Screen Ur Barbiturates Screen Ur Phencyclidine Scrn Ur Amphetamines Screen U Methamphetamin-MDMA U Benzodiazepines Scrn Urine Cocaine Screen U Cannabinoids Screen Ur Drug Screen Comment Ethyl Alcohol Rheumatoid Factor < 10.0 GRAY Screen KASIA-1 Antibody SS-A/Ro IgG Antibody SS-B/La IgG Antibody Sm (Baxter) Antibody [employer] LO[employer] UNDERWRITER Antibody Scl-70 Scleroderma Ab Double Strand DNA Ab Centromere B Antibody Hepatitis A IgM Ab Hep Bs Antigen Hep B Core IgM Ab Hepatitis Interpret HIV 1&2 Antibody MRSA (PCR) POC Glucose Blood Type Direct Antiglob Test 05/13/19 05/13/19 05/13/19 16:55 16:55 16:55 WBC RBC Hgb Hct MCV MCH MCHC RDW Std Deviation RDW Coeff of Pierre Plt Count MPV Immature Gran % (Auto) Neut % (Auto) Lymph % (Auto) Hartley % (Auto) Eos % (Auto) Baso % (Auto) Absolute Neuts (auto) Absolute Lymphs (auto) Total Counted Neutrophils % (Manual) Band Neutrophils % Lymphocytes % (Manual) Monocytes % (Manual) Nucleated RBC % Nucleated RBCs/100 WBC Differential Comment Diff Path Review Platelet Estimate Plt Morphology Comment RBC Morphology Crenated Cell ESR 67 H Haptoglobin PT INR APTT Fibrinogen 851 H Specimen Type Sample Site pH Bicarbonate Actual POC Total CO2 Base Excess O2 Saturation O2 % ABG pCO2 ABG pO2 Gennaro Test Respiration Rate O2 Delivery Device Minute Volume Vent Mode Tidal Volume POC PEEP Blood Gas Notified Whom Blood Gas Notified Time Sodium Potassium Chloride Carbon Dioxide Anion Gap BUN Creatinine Estim Creat Clear Calc Est GFR (MDRD) Af Amer Est GFR (MDRD) Non-Af BUN/Creatinine Ratio Glucose Hemoglobin A1c Lactic Acid Uric Acid Calcium Phosphorus Magnesium Total Bilirubin Direct Bilirubin Indirect Bilirubin GGT AST ALT Alkaline Phosphatase Lactate Dehydrogenase Total Creatine Kinase Troponin I C-React Prot Ext Range Total Protein Albumin Globulin Albumin/Globulin Ratio Triglycerides Lipase Urine Color Urine Clarity Urine pH Ur Specific Keeler Urine Protein Urine Glucose (UA) Urine Ketones Urine Occult Blood Urine Nitrite Urine Bilirubin Urine Urobilinogen Ur Leukocyte Esterase Urine RBC Urine WBC Ur Squamous Epith Cells Urine Bacteria Urine Mucus Ur Random Sodium Urine Creatinine Random Vancomycin Urine Opiates Screen Urine Methadone Screen Ur Barbiturates Screen Ur Phencyclidine Scrn Ur Amphetamines Screen U Methamphetamin-MDMA U Benzodiazepines Scrn Urine Cocaine Screen U Cannabinoids Screen Ur Drug Screen Comment Ethyl Alcohol Rheumatoid Factor GRAY Screen Pending KASIA-1 Antibody Pending SS-A/Ro IgG Antibody Pending SS-B/La IgG Antibody Pending Sm (Baxter) Antibody Pending [employer] UNDERWRITER Antibody Pending Scl-70 Scleroderma Ab Pending Double Strand DNA Ab Pending Centromere B Antibody Pending Hepatitis A IgM Ab Hep Bs Antigen Hep B Core IgM Ab Hepatitis Interpret HIV 1&2 Antibody MRSA (PCR) POC Glucose Blood Type Direct Antiglob Test 05/13/19 05/13/19 05/13/19 16:55 16:55 17:55 WBC RBC Hgb Hct MCV MCH MCHC RDW Std Deviation RDW Coeff of Pierre Plt Count MPV Immature Gran % (Auto) Neut % (Auto) Lymph % (Auto) Hartley % (Auto) Eos % (Auto) Baso % (Auto) Absolute Neuts (auto) Absolute Lymphs (auto) Total Counted Neutrophils % (Manual) Band Neutrophils % Lymphocytes % (Manual) Monocytes % (Manual) Nucleated RBC % Nucleated RBCs/100 WBC Differential Comment Diff Path Review Platelet Estimate Plt Morphology Comment RBC Morphology Crenated Cell ESR Haptoglobin Pending PT INR APTT Fibrinogen Specimen Type Sample Site pH Bicarbonate Actual POC Total CO2 Base Excess O2 Saturation O2 % ABG pCO2 ABG pO2 Gennaro Test Respiration Rate O2 Delivery Device Minute Volume Vent Mode Tidal Volume POC PEEP Blood Gas Notified Whom Blood Gas Notified Time Sodium Potassium Chloride Carbon Dioxide Anion Gap BUN Creatinine Estim Creat Clear Calc Est GFR (MDRD) Af Amer Est GFR (MDRD) Non-Af BUN/Creatinine Ratio Glucose Hemoglobin A1c Lactic Acid Uric Acid Calcium Phosphorus Magnesium Total Bilirubin Direct Bilirubin Indirect Bilirubin GGT AST ALT Alkaline Phosphatase Lactate Dehydrogenase Total Creatine Kinase Troponin I C-React Prot Ext Range Total Protein Albumin Globulin Albumin/Globulin Ratio Triglycerides 670 H Lipase Urine Color Urine Clarity Urine pH Ur Specific Keeler Urine Protein Urine Glucose (UA) Urine Ketones Urine Occult Blood Urine Nitrite Urine Bilirubin Urine Urobilinogen Ur Leukocyte Esterase Urine RBC Urine WBC Ur Squamous Epith Cells Urine Bacteria Urine Mucus Ur Random Sodium Urine Creatinine Random Vancomycin Urine Opiates Screen Urine Methadone Screen Ur Barbiturates Screen Ur Phencyclidine Scrn Ur Amphetamines Screen U Methamphetamin-MDMA U Benzodiazepines Scrn Urine Cocaine Screen U Cannabinoids Screen Ur Drug Screen Comment Ethyl Alcohol Rheumatoid Factor GRAY Screen KASIA-1 Antibody SS-A/Ro IgG Antibody SS-B/La IgG Antibody Sm (Baxter) Antibody [employer] UNDERWRITER Antibody Scl-70 Scleroderma Ab Double Strand DNA Ab Centromere B Antibody Hepatitis A IgM Ab Hep Bs Antigen Hep B Core IgM Ab Hepatitis Interpret HIV 1&2 Antibody MRSA (PCR) POC Glucose Blood Type O POSITIVE Direct Antiglob Test 05/13/19 05/13/19 05/13/19 18:49 19:25 19:43 WBC RBC Hgb Hct MCV MCH MCHC RDW Std Deviation RDW Coeff of Pierre Plt Count MPV Immature Gran % (Auto) Neut % (Auto) Lymph % (Auto) Hartley % (Auto) Eos % (Auto) Baso % (Auto) Absolute Neuts (auto) Absolute Lymphs (auto) Total Counted Neutrophils % (Manual) Band Neutrophils % Lymphocytes % (Manual) Monocytes % (Manual) Nucleated RBC % Nucleated RBCs/100 WBC Differential Comment Diff Path Review Platelet Estimate Plt Morphology Comment RBC Morphology Crenated Cell ESR Haptoglobin PT INR APTT Fibrinogen Specimen Type Sample Site pH Bicarbonate Actual POC Total CO2 Base Excess O2 Saturation O2 % ABG pCO2 ABG pO2 Gennaro Test Respiration Rate O2 Delivery Device Minute Volume Vent Mode Tidal Volume POC PEEP Blood Gas Notified Whom Blood Gas Notified Time Sodium Potassium Chloride Carbon Dioxide Anion Gap BUN Creatinine Estim Creat Clear Calc Est GFR (MDRD) Af Amer Est GFR (MDRD) Non-Af BUN/Creatinine Ratio Glucose Hemoglobin A1c Lactic Acid Uric Acid Calcium Phosphorus Magnesium Total Bilirubin Direct Bilirubin Indirect Bilirubin GGT AST ALT Alkaline Phosphatase Lactate Dehydrogenase Total Creatine Kinase Troponin I 0.215 H C-React Prot Ext Range Total Protein Albumin Globulin Albumin/Globulin Ratio Triglycerides Lipase Urine Color Urine Clarity Urine pH Ur Specific Keeler Urine Protein Urine Glucose (UA) Urine Ketones Urine Occult Blood Urine Nitrite Urine Bilirubin Urine Urobilinogen Ur Leukocyte Esterase Urine RBC Urine WBC Ur Squamous Epith Cells Urine Bacteria Urine Mucus Ur Random Sodium Urine Creatinine Random Vancomycin Urine Opiates Screen Urine Methadone Screen Ur Barbiturates Screen Ur Phencyclidine Scrn Ur Amphetamines Screen U Methamphetamin-MDMA U Benzodiazepines Scrn Urine Cocaine Screen U Cannabinoids Screen Ur Drug Screen Comment Ethyl Alcohol Rheumatoid Factor GRAY Screen KASIA-1 Antibody SS-A/Ro IgG Antibody SS-B/La IgG Antibody Sm (Baxter) Antibody [employer] UNDERWRITER Antibody Scl-70 Scleroderma Ab Double Strand DNA Ab Centromere B Antibody Hepatitis A IgM Ab Hep Bs Antigen Hep B Core IgM Ab Hepatitis Interpret HIV 1&2 Antibody MRSA (PCR) Negative POC Glucose 93 Blood Type Direct Antiglob Test 05/13/19 05/13/19 05/13/19 19:43 21:15 23:51 WBC RBC Hgb Hct MCV MCH MCHC RDW Std Deviation RDW Coeff of Pierre Plt Count MPV Immature Gran % (Auto) Neut % (Auto) Lymph % (Auto) Hartley % (Auto) Eos % (Auto) Baso % (Auto) Absolute Neuts (auto) Absolute Lymphs (auto) Total Counted Neutrophils % (Manual) Band Neutrophils % Lymphocytes % (Manual) Monocytes % (Manual) Nucleated RBC % Nucleated RBCs/100 WBC Differential Comment Diff Path Review Platelet Estimate Plt Morphology Comment RBC Morphology Crenated Cell ESR Haptoglobin PT INR APTT Fibrinogen Specimen Type Sample Site pH Bicarbonate Actual POC Total CO2 Base Excess O2 Saturation O2 % ABG pCO2 ABG pO2 Gennaro Test Respiration Rate O2 Delivery Device Minute Volume Vent Mode Tidal Volume POC PEEP Blood Gas Notified Whom Blood Gas Notified Time Sodium Potassium Chloride Carbon Dioxide Anion Gap BUN Creatinine Estim Creat Clear Calc Est GFR (MDRD) Af Amer Est GFR (MDRD) Non-Af BUN/Creatinine Ratio Glucose Hemoglobin A1c Lactic Acid 1.7 Uric Acid 9.1 H Calcium Phosphorus Magnesium Total Bilirubin Direct Bilirubin Indirect Bilirubin GGT AST ALT Alkaline Phosphatase Lactate Dehydrogenase Total Creatine Kinase Troponin I C-React Prot Ext Range Total Protein Albumin Globulin Albumin/Globulin Ratio Triglycerides Lipase 460 H Urine Color Urine Clarity Urine pH Ur Specific Keeler Urine Protein Urine Glucose (UA) Urine Ketones Urine Occult Blood Urine Nitrite Urine Bilirubin Urine Urobilinogen Ur Leukocyte Esterase Urine RBC Urine WBC Ur Squamous Epith Cells Urine Bacteria Urine Mucus Ur Random Sodium Urine Creatinine Random Vancomycin Urine Opiates Screen Urine Methadone Screen Ur Barbiturates Screen Ur Phencyclidine Scrn Ur Amphetamines Screen U Methamphetamin-MDMA U Benzodiazepines Scrn Urine Cocaine Screen U Cannabinoids Screen Ur Drug Screen Comment Ethyl Alcohol Rheumatoid Factor GRAY Screen KASIA-1 Antibody SS-A/Ro IgG Antibody SS-B/La IgG Antibody Sm (Baxter) Antibody [employer] UNDERWRITER Antibody Scl-70 Scleroderma Ab Double Strand DNA Ab Centromere B Antibody Hepatitis A IgM Ab Hep Bs Antigen Hep B Core IgM Ab Hepatitis Interpret HIV 1&2 Antibody MRSA (PCR) POC Glucose 55 L Blood Type Direct Antiglob Test 10/24/19 10/24/19 10/24/19 00:21 00:26 00:31 WBC RBC Hgb Hct MCV MCH MCHC RDW Std Deviation RDW Coeff of Pierre Plt Count MPV Immature Gran % (Auto) Neut % (Auto) Lymph % (Auto) Hartley % (Auto) Eos % (Auto) Baso % (Auto) Absolute Neuts (auto) Absolute Lymphs (auto) Total Counted Neutrophils % (Manual) Band Neutrophils % Lymphocytes % (Manual) Monocytes % (Manual) Nucleated RBC % Nucleated RBCs/100 WBC Differential Comment Diff Path Review Platelet Estimate Plt Morphology Comment RBC Morphology Crenated Cell ESR Haptoglobin PT INR APTT Fibrinogen Specimen Type ART Sample Site R Brachial pH 7.32 L Bicarbonate Actual 13.8 L POC Total CO2 15 Base Excess -12 L O2 Saturation 98 O2 % 55 ABG pCO2 26.7 L ABG pO2 103 H Gennaro Test NA Respiration Rate 12 O2 Delivery Device Vent Minute Volume 16.00 Vent Mode A-C Tidal Volume 450 POC PEEP 5 Blood Gas Notified Whom HOSP Blood Gas Notified Time 28 Sodium Potassium Chloride Carbon Dioxide Anion Gap BUN Creatinine Estim Creat Clear Calc Est GFR (MDRD) Af Amer Est GFR (MDRD) Non-Af BUN/Creatinine Ratio Glucose 241 H Hemoglobin A1c Lactic Acid Uric Acid Calcium Phosphorus Magnesium Total Bilirubin Direct Bilirubin Indirect Bilirubin GGT AST ALT Alkaline Phosphatase Lactate Dehydrogenase Total Creatine Kinase Troponin I C-React Prot Ext Range Total Protein Albumin Globulin Albumin/Globulin Ratio Triglycerides Lipase Urine Color Urine Clarity Urine pH Ur Specific Keeler Urine Protein Urine Glucose (UA) Urine Ketones Urine Occult Blood Urine Nitrite Urine Bilirubin Urine Urobilinogen Ur Leukocyte Esterase Urine RBC Urine WBC Ur Squamous Epith Cells Urine Bacteria Urine Mucus Ur Random Sodium Urine Creatinine Random Vancomycin Urine Opiates Screen Urine Methadone Screen Ur Barbiturates Screen Ur Phencyclidine Scrn Ur Amphetamines Screen U Methamphetamin-MDMA U Benzodiazepines Scrn Urine Cocaine Screen U Cannabinoids Screen Ur Drug Screen Comment Ethyl Alcohol Rheumatoid Factor GRAY Screen KASIA-1 Antibody SS-A/Ro IgG Antibody SS-B/La IgG Antibody Sm (Baxter) Antibody [employer] UNDERWRITER Antibody Scl-70 Scleroderma Ab Double Strand DNA Ab Centromere B Antibody Hepatitis A IgM Ab Hep Bs Antigen Hep B Core IgM Ab Hepatitis Interpret HIV 1&2 Antibody MRSA (PCR) POC Glucose 33 L* Blood Type Direct Antiglob Test 05/14/19 05/14/19 05/14/19 04:45 04:45 04:45 WBC 18.5 H RBC 4.34 Hgb 13.0 Hct 40.0 MCV 92.2 MCH 30.0 MCHC 32.5 RDW Std Deviation 55.4 H RDW Coeff of Pierre 16.3 H Plt Count 21 L* MPV Immature Gran % (Auto) Neut % (Auto) Not Reportable Lymph % (Auto) Hartley % (Auto) Eos % (Auto) Baso % (Auto) Absolute Neuts (auto) 16.3 H Absolute Lymphs (auto) 1.48 Total Counted 100 Neutrophils % (Manual) 86 H Band Neutrophils % 2 Lymphocytes % (Manual) 8 L Monocytes % (Manual) 4 Nucleated RBC % Nucleated RBCs/100 WBC 1 Differential Comment Diff Path Review Reviewed Platelet Estimate MKD DEC Plt Morphology Comment LARGE RBC Morphology NORM C+C Crenated Cell ESR Haptoglobin PT 15.1 H INR 1.2 APTT Fibrinogen Specimen Type Sample Site pH Bicarbonate Actual POC Total CO2 Base Excess O2 Saturation O2 % ABG pCO2 ABG pO2 Gennaro Test Respiration Rate O2 Delivery Device Minute Volume Vent Mode Tidal Volume POC PEEP Blood Gas Notified Whom Blood Gas Notified Time Sodium 141 Potassium 3.7 Chloride 111 H Carbon Dioxide 20.0 L Anion Gap 10 BUN 125 H* Creatinine 2.91 H Estim Creat Clear Calc 18.76 Est GFR (MDRD) Af Amer 21 L Est GFR (MDRD) Non-Af 17 L BUN/Creatinine Ratio 43.0 H Glucose 226 H Hemoglobin A1c Lactic Acid Uric Acid Calcium 7.3 L Phosphorus 4.7 Magnesium 2.3 Total Bilirubin 4.70 H Direct Bilirubin Indirect Bilirubin GGT AST 496 H ALT 164 H Alkaline Phosphatase 308 H Lactate Dehydrogenase Total Creatine Kinase Troponin I C-React Prot Ext Range Total Protein 5.8 L Albumin 1.8 L Globulin 4.0 Albumin/Globulin Ratio 0.4 L Triglycerides Lipase Urine Color Urine Clarity Urine pH Ur Specific Keeler Urine Protein Urine Glucose (UA) Urine Ketones Urine Occult Blood Urine Nitrite Urine Bilirubin Urine Urobilinogen Ur Leukocyte Esterase Urine RBC Urine WBC Ur Squamous Epith Cells Urine Bacteria Urine Mucus Ur Random Sodium Urine Creatinine Random Vancomycin Urine Opiates Screen Urine Methadone Screen Ur Barbiturates Screen Ur Phencyclidine Scrn Ur Amphetamines Screen U Methamphetamin-MDMA U Benzodiazepines Scrn Urine Cocaine Screen U Cannabinoids Screen Ur Drug Screen Comment Ethyl Alcohol Rheumatoid Factor GRAY Screen KASIA-1 Antibody SS-A/Ro IgG Antibody SS-B/La IgG Antibody Sm (Baxter) Antibody [employer] UNDERWRITER Antibody Scl-70 Scleroderma Ab Double Strand DNA Ab Centromere B Antibody Hepatitis A IgM Ab Hep Bs Antigen Hep B Core IgM Ab Hepatitis Interpret HIV 1&2 Antibody MRSA (PCR) POC Glucose Blood Type Direct Antiglob Test 05/14/19 05/14/19 05/14/19 05:19 08:00 09:30 WBC RBC Hgb Hct MCV MCH MCHC RDW Std Deviation RDW Coeff of Pierre Plt Count MPV Immature Gran % (Auto) Neut % (Auto) Lymph % (Auto) Hartley % (Auto) Eos % (Auto) Baso % (Auto) Absolute Neuts (auto) Absolute Lymphs (auto) Total Counted Neutrophils % (Manual) Band Neutrophils % Lymphocytes % (Manual) Monocytes % (Manual) Nucleated RBC % Nucleated RBCs/100 WBC Differential Comment Diff Path Review Platelet Estimate Plt Morphology Comment RBC Morphology Crenated Cell ESR Haptoglobin PT INR APTT Fibrinogen Specimen Type Sample Site pH Bicarbonate Actual POC Total CO2 Base Excess O2 Saturation O2 % ABG pCO2 ABG pO2 Gennaro Test Respiration Rate O2 Delivery Device Minute Volume Vent Mode Tidal Volume POC PEEP Blood Gas Notified Whom Blood Gas Notified Time Sodium 142 Potassium 3.7 Chloride 112 H Carbon Dioxide 19.0 L Anion Gap 11 BUN 124 H* Creatinine 2.78 H Estim Creat Clear Calc 19.64 Est GFR (MDRD) Af Amer 22 L Est GFR (MDRD) Non-Af 18 L BUN/Creatinine Ratio 44.6 H Glucose 206 H Hemoglobin A1c Lactic Acid Uric Acid Calcium 7.5 L Phosphorus Magnesium Total Bilirubin Direct Bilirubin Indirect Bilirubin GGT AST ALT Alkaline Phosphatase Lactate Dehydrogenase Total Creatine Kinase 2500 H Troponin I C-React Prot Ext Range Total Protein Albumin Globulin Albumin/Globulin Ratio Triglycerides Lipase Urine Color Urine Clarity Urine pH Ur Specific Keeler Urine Protein Urine Glucose (UA) Urine Ketones Urine Occult Blood Urine Nitrite Urine Bilirubin Urine Urobilinogen Ur Leukocyte Esterase Urine RBC Urine WBC Ur Squamous Epith Cells Urine Bacteria Urine Mucus Ur Random Sodium Urine Creatinine Random Vancomycin Urine Opiates Screen Urine Methadone Screen Ur Barbiturates Screen Ur Phencyclidine Scrn Ur Amphetamines Screen U Methamphetamin-MDMA U Benzodiazepines Scrn Urine Cocaine Screen U Cannabinoids Screen Ur Drug Screen Comment Ethyl Alcohol Rheumatoid Factor GRAY Screen KASIA-1 Antibody SS-A/Ro IgG Antibody SS-B/La IgG Antibody Sm (Baxter) Antibody [employer] UNDERWRITER Antibody Scl-70 Scleroderma Ab Double Strand DNA Ab Centromere B Antibody Hepatitis A IgM Ab Pending Hep Bs Antigen Pending Hep B Core IgM Ab Pending Hepatitis Interpret Pending HIV 1&2 Antibody MRSA (PCR) POC Glucose 194 H Blood Type Direct Antiglob Test 05/14/19 05/14/19 05/14/19 11:23 11:45 11:45 WBC RBC Hgb Hct MCV MCH MCHC RDW Std Deviation RDW Coeff of Pierre Plt Count MPV Immature Gran % (Auto) Neut % (Auto) Lymph % (Auto) Hartley % (Auto) Eos % (Auto) Baso % (Auto) Absolute Neuts (auto) Absolute Lymphs (auto) Total Counted Neutrophils % (Manual) Band Neutrophils % Lymphocytes % (Manual) Monocytes % (Manual) Nucleated RBC % Nucleated RBCs/100 WBC Differential Comment Diff Path Review Platelet Estimate Plt Morphology Comment RBC Morphology Crenated Cell ESR Haptoglobin PT INR APTT Fibrinogen Specimen Type Sample Site pH Bicarbonate Actual POC Total CO2 Base Excess O2 Saturation O2 % ABG pCO2 ABG pO2 Gennaro Test Respiration Rate O2 Delivery Device Minute Volume Vent Mode Tidal Volume POC PEEP Blood Gas Notified Whom Blood Gas Notified Time Sodium Potassium Chloride Carbon Dioxide Anion Gap BUN Creatinine Estim Creat Clear Calc Est GFR (MDRD) Af Amer Est GFR (MDRD) Non-Af BUN/Creatinine Ratio Glucose Hemoglobin A1c Lactic Acid Uric Acid Calcium Phosphorus Magnesium Total Bilirubin Direct Bilirubin Indirect Bilirubin GGT AST ALT Alkaline Phosphatase Lactate Dehydrogenase Total Creatine Kinase Troponin I C-React Prot Ext Range Total Protein Albumin Globulin Albumin/Globulin Ratio Triglycerides Lipase Urine Color Urine Clarity Urine pH Ur Specific Keeler Urine Protein Urine Glucose (UA) Urine Ketones Urine Occult Blood Urine Nitrite Urine Bilirubin Urine Urobilinogen Ur Leukocyte Esterase Urine RBC Urine WBC Ur Squamous Epith Cells Urine Bacteria Urine Mucus Ur Random Sodium 16 Urine Creatinine 55.20 Random Vancomycin Urine Opiates Screen Urine Methadone Screen Ur Barbiturates Screen Ur Phencyclidine Scrn Ur Amphetamines Screen U Methamphetamin-MDMA U Benzodiazepines Scrn Urine Cocaine Screen U Cannabinoids Screen Ur Drug Screen Comment Ethyl Alcohol Rheumatoid Factor GRAY Screen KASIA-1 Antibody SS-A/Ro IgG Antibody SS-B/La IgG Antibody Sm (Baxter) Antibody [employer] UNDERWRITER Antibody Scl-70 Scleroderma Ab Double Strand DNA Ab Centromere B Antibody Hepatitis A IgM Ab Hep Bs Antigen Hep B Core IgM Ab Hepatitis Interpret HIV 1&2 Antibody MRSA (PCR) POC Glucose 160 H Blood Type Direct Antiglob Test 05/14/19 05/14/19 05/14/19 16:40 17:20 23:22 WBC 14.7 H RBC 4.25 Hgb 13.1 Hct 38.6 MCV 90.8 MCH 30.8 MCHC 33.9 RDW Std Deviation 54.2 H RDW Coeff of Pierre 16.3 H Plt Count 17 L* MPV TNP Immature Gran % (Auto) Neut % (Auto) Lymph % (Auto) Hartley % (Auto) Eos % (Auto) Baso % (Auto) Absolute Neuts (auto) Absolute Lymphs (auto) Total Counted Neutrophils % (Manual) Band Neutrophils % Lymphocytes % (Manual) Monocytes % (Manual) Nucleated RBC % Nucleated RBCs/100 WBC Differential Comment Diff Path Review May foll Platelet Estimate Plt Morphology Comment RBC Morphology Crenated Cell ESR Haptoglobin PT INR APTT Fibrinogen Specimen Type Sample Site pH Bicarbonate Actual POC Total CO2 Base Excess O2 Saturation O2 % ABG pCO2 ABG pO2 Gennaro Test Respiration Rate O2 Delivery Device Minute Volume Vent Mode Tidal Volume POC PEEP Blood Gas Notified Whom Blood Gas Notified Time Sodium Potassium Chloride Carbon Dioxide Anion Gap BUN Creatinine Estim Creat Clear Calc Est GFR (MDRD) Af Amer Est GFR (MDRD) Non-Af BUN/Creatinine Ratio Glucose Hemoglobin A1c Lactic Acid Uric Acid Calcium Phosphorus Magnesium Total Bilirubin Direct Bilirubin Indirect Bilirubin GGT AST ALT Alkaline Phosphatase Lactate Dehydrogenase Total Creatine Kinase Troponin I C-React Prot Ext Range Total Protein Albumin Globulin Albumin/Globulin Ratio Triglycerides Lipase Urine Color Urine Clarity Urine pH Ur Specific Keeler Urine Protein Urine Glucose (UA) Urine Ketones Urine Occult Blood Urine Nitrite Urine Bilirubin Urine Urobilinogen Ur Leukocyte Esterase Urine RBC Urine WBC Ur Squamous Epith Cells Urine Bacteria Urine Mucus Ur Random Sodium Urine Creatinine Random Vancomycin Urine Opiates Screen Urine Methadone Screen Ur Barbiturates Screen Ur Phencyclidine Scrn Ur Amphetamines Screen U Methamphetamin-MDMA U Benzodiazepines Scrn Urine Cocaine Screen U Cannabinoids Screen Ur Drug Screen Comment Ethyl Alcohol Rheumatoid Factor GRAY Screen KASIA-1 Antibody SS-A/Ro IgG Antibody SS-B/La IgG Antibody Sm (Baxter) Antibody [employer] LO[employer] UNDERWRITER Antibody Scl-70 Scleroderma Ab Double Strand DNA Ab Centromere B Antibody Hepatitis A IgM Ab Hep Bs Antigen Hep B Core IgM Ab Hepatitis Interpret HIV 1&2 Antibody MRSA (PCR) POC Glucose 130 H 222 H Blood Type Direct Antiglob Test 05/14/19 05/15/19 05/15/19 Unknown 05:15 05:15 WBC 16.8 H RBC 4.12 L Hgb 12.6 Hct 37.2 MCV 90.3 MCH 30.6 MCHC 33.9 RDW Std Deviation 53.7 H RDW Coeff of Pierre 16.2 H Plt Count 30 L* MPV Immature Gran % (Auto) 4.800 H Neut % (Auto) 80.4 H Lymph % (Auto) 5.7 L Hartley % (Auto) 8.6 Eos % (Auto) 0.1 Baso % (Auto) 0.4 Absolute Neuts (auto) 13.5 H Absolute Lymphs (auto) 0.95 Total Counted Neutrophils % (Manual) Band Neutrophils % Lymphocytes % (Manual) Monocytes % (Manual) Nucleated RBC % 0 Nucleated RBCs/100 WBC Differential Comment SCANNED Diff Path Review May foll Platelet Estimate MKD DEC Plt Morphology Comment LARGE RBC Morphology Crenated Cell ESR Haptoglobin PT INR APTT Fibrinogen Specimen Type Sample Site pH Bicarbonate Actual POC Total CO2 Base Excess O2 Saturation O2 % ABG pCO2 ABG pO2 Gennaor Test Respiration Rate O2 Delivery Device Minute Volume Vent Mode Tidal Volume POC PEEP Blood Gas Notified Whom Blood Gas Notified Time Sodium Potassium Chloride Carbon Dioxide Anion Gap BUN Creatinine Estim Creat Clear Calc Est GFR (MDRD) Af Amer Est GFR (MDRD) Non-Af BUN/Creatinine Ratio Glucose Hemoglobin A1c Lactic Acid Uric Acid Calcium Phosphorus Magnesium Total Bilirubin Direct Bilirubin Indirect Bilirubin GGT AST ALT Alkaline Phosphatase Lactate Dehydrogenase Total Creatine Kinase Troponin I C-React Prot Ext Range Total Protein Albumin Globulin Albumin/Globulin Ratio Triglycerides Lipase Urine Color Urine Clarity Urine pH Ur Specific Keeler Urine Protein Urine Glucose (UA) Urine Ketones Urine Occult Blood Urine Nitrite Urine Bilirubin Urine Urobilinogen Ur Leukocyte Esterase Urine RBC Urine WBC Ur Squamous Epith Cells Urine Bacteria Urine Mucus Ur Random Sodium Urine Creatinine Random Vancomycin 11.7 Urine Opiates Screen Urine Methadone Screen Ur Barbiturates Screen Ur Phencyclidine Scrn Ur Amphetamines Screen U Methamphetamin-MDMA U Benzodiazepines Scrn Urine Cocaine Screen U Cannabinoids Screen Ur Drug Screen Comment Ethyl Alcohol Rheumatoid Factor GRAY Screen KASIA-1 Antibody SS-A/Ro IgG Antibody SS-B/La IgG Antibody Sm (Baxter) Antibody [employer] LO[employer] UNDERWRITER Antibody Scl-70 Scleroderma Ab Double Strand DNA Ab Centromere B Antibody Hepatitis A IgM Ab Hep Bs Antigen Hep B Core IgM Ab Hepatitis Interpret HIV 1&2 Antibody Non-Reactive MRSA (PCR) POC Glucose Blood Type Direct Antiglob Test 05/15/19 05/15/19 05:15 05:46 WBC RBC Hgb Hct MCV MCH MCHC RDW Std Deviation RDW Coeff of Pierre Plt Count MPV Immature Gran % (Auto) Neut % (Auto) Lymph % (Auto) Hartley % (Auto) Eos % (Auto) Baso % (Auto) Absolute Neuts (auto) Absolute Lymphs (auto) Total Counted Neutrophils % (Manual) Band Neutrophils % Lymphocytes % (Manual) Monocytes % (Manual) Nucleated RBC % Nucleated RBCs/100 WBC Differential Comment Diff Path Review Platelet Estimate Plt Morphology Comment RBC Morphology Crenated Cell ESR Haptoglobin PT INR APTT Fibrinogen Specimen Type Sample Site pH Bicarbonate Actual POC Total CO2 Base Excess O2 Saturation O2 % ABG pCO2 ABG pO2 Gennaro Test Respiration Rate O2 Delivery Device Minute Volume Vent Mode Tidal Volume POC PEEP Blood Gas Notified Whom Blood Gas Notified Time Sodium 145 Potassium 3.5 Chloride 117 H Carbon Dioxide 19.0 L Anion Gap 9 BUN 124 H* Creatinine 2.42 H Estim Creat Clear Calc 22.56 Est GFR (MDRD) Af Amer 26 L Est GFR (MDRD) Non-Af 22 L BUN/Creatinine Ratio 51.2 H Glucose 193 H Hemoglobin A1c Lactic Acid Uric Acid Calcium 7.7 L Phosphorus 2.7 Magnesium 2.3 Total Bilirubin 3.10 H Direct Bilirubin Indirect Bilirubin GGT AST 237 H ALT 112 H Alkaline Phosphatase 234 H Lactate Dehydrogenase Total Creatine Kinase 1557 H Troponin I C-React Prot Ext Range Total Protein 5.6 L Albumin 1.8 L Globulin 3.8 Albumin/Globulin Ratio 0.5 L Triglycerides Lipase Urine Color Urine Clarity Urine pH Ur Specific Keeler Urine Protein Urine Glucose (UA) Urine Ketones Urine Occult Blood Urine Nitrite Urine Bilirubin Urine Urobilinogen Ur Leukocyte Esterase Urine RBC Urine WBC Ur Squamous Epith Cells Urine Bacteria Urine Mucus Ur Random Sodium Urine Creatinine Random Vancomycin Urine Opiates Screen Urine Methadone Screen Ur Barbiturates Screen Ur Phencyclidine Scrn Ur Amphetamines Screen U Methamphetamin-MDMA U Benzodiazepines Scrn Urine Cocaine Screen U Cannabinoids Screen Ur Drug Screen Comment Ethyl Alcohol Rheumatoid Factor GRAY Screen KASIA-1 Antibody SS-A/Ro IgG Antibody SS-B/La IgG Antibody Sm (Baxter) Antibody [employer] LO[employer] UNDERWRITER Antibody Scl-70 Scleroderma Ab Double Strand DNA Ab Centromere B Antibody Hepatitis A IgM Ab Hep Bs Antigen Hep B Core IgM Ab Hepatitis Interpret HIV 1&2 Antibody MRSA (PCR) POC Glucose 180 H Blood Type Direct Antiglob Test Microbiology 05/13/19 22:55 Sputum, Induced/Lukens Gram Stain - Final 05/13/19 22:55 Sputum, Induced/Lukens Respiratory Culture - Preliminary Mixed Culture 05/13/19 19:40 Blood Culture (Wb) - Left Forearm Blood Culture - Preliminary 05/13/19 11:54 Blood Culture (Wb) - Left Hand Blood Culture - Preliminary Gram negative joan 05/13/19 18:15 Blood Culture (Wb) - Central Line Blood Culture - Preliminary 05/13/19 11:40 Blood Culture (Wb) - Anticubital Left Blood Culture - Preliminary Clinical Impression(s) from Imaging Studies Chest X-Ray 05/13/19 09:57 IMPRESSION: The tip of the endotracheal tube is at 3.7 cm proximal to the morena. Electronically Signed: Jose Longo, at 10:51 EDT , Service support , Brain CT 05/13/19 09:58 IMPRESSION: Chronic involutional changes of the brain. Electronically Signed: Jose Longo, at 11:18 EDT , Service support , Chest X-Ray 05/13/19 09:59 IMPRESSION: The tip of the endotracheal tube is at the origin of the right mainstem bronchus. It should be withdrawn approximately 3 cm. Electronically Signed: Jose Longo, at 10:51 EDT , Service support , Chest X-Ray 05/13/19 16:45 IMPRESSION: Central catheter extends to the cavoatrial junction. No pneumothorax. Electronically Signed: Toi Saenz MD at 17:32 EDT , Service support , Abdomen CT 05/13/19 19:47 IMPRESSION: Infrarenal abdominal aortic aneurysm. No rupture or periaortic collection. Colonic diverticulosis. No obstruction. Bilateral lower lung infiltrates. Electronically Signed: Toi Saenz MD at 23:09 EDT , Service support , Chest X-Ray 05/14/19 05:55 IMPRESSION: Left mid lower lung field atelectasis versus pneumonia with mild left effusion. Mild right perihilar atelectasis. Overall exam is stable or slightly worsened on the left compared to recent study. Lines and tubes as described above. Electronically Signed: Sara Jesus MD at 4:07 EDT , Service support , Medical Necessity - Tobacco Use Smoking Status: Former smoker - she quit in 2018 but prior to that she smoked 1-1/2 packs of cigarettes daily for at least 40 years. Tobacco Use: Cigarettes Assessment/Plan All Active Problems (Last Reviewed 05/13/19 @ 20:07 by Trupti Bagley DO) Acute respiratory failure with hypoxia (Acute) Atrial fibrillation with rapid ventricular response (Acute) Thrombocytopenia (Acute) Dehydration (Acute) Septic shock (Acute) Acute febrile illness (Acute) Rhabdomyolysis (Acute) ARF (acute renal failure) (Acute) Uremic encephalopathy (Acute) Abnormal LFTs (Acute) Metabolic acidosis (Acute) Lactic acidosis (Acute) Cat bite involving extremity (Resolved) Cellulitis (Resolved) Dysphagia (Resolved) Ulcer of right lower leg (Resolved) RECOMMENDATIONS: 1. Consultation placed to infectious diseases given persistent fevers despite broad-spectrum antimicrobials. 2. Continue rate/rhythm control strategy per cardiology recommendations. 3. Avoid sedating medications. 4. Continue tube feeds as ordered. 5. Continue to wean FiO2 to maintain saturations at or above 90%. 6. Continue appropriate GI prophylaxis with Pepcid. IMPRESSIONS: 1. Acute hypoxemic respiratory failure The patient was initially found down in an unresponsive state by family members. She was subsequently intubated upon arrival to the emergency department. While the patient initially did not have evidence of an infiltrate on plain film chest x-ray, she was significantly intravascularly volume depleted. The patient subsequently developed evidence of airspace disease on follow-up chest imaging. While she does have a prior smoking history, she does not have evidence of COPD on pulmonary function studies. We will plan to continue current supportive measures with invasive mechanical ventilatory support and broad-spectrum antimicrobial coverage. We will wean FiO2 to maintain an oxygen saturation at or above 90%. 2. Gram-negative septic shock The patient has evidence of gram-negative bacteremia and evidence of airspace disease on chest imaging. Patient will be continued on broad-spectrum antimicrobials accordingly. Infectious diseases consultation is currently pending. 3. Metabolic encephalopathy The exact etiology for the patient's presenting encephalopathy is unclear. It is unknown whether she may have overdosed on outpatient prescription medications. Nevertheless, her current state of encephalopathy is likely metabolic in nature as she is significantly uremic. Nephrology is currently following. Initial CT head was negative. The patient has no known history of an underlying seizure disorder. With time and avoidance of sedating medications, my hope is the patient's mentation will improve. 4. Acute on chronic kidney disease This is likely prerenal in etiology and related to significant intravascular volume depletion and subsequent ischemic ATN in the setting of hemodynamic instability. The patient is currently being volume resuscitated. Nephrology is following. We will monitor urine output. No current indication for renal replacement therapy. 5. Atrial fibrillation with rapid ventricular rate The patient did present to the emergency department with new onset atrial fibrillation with rapid ventricular rate, which may have been precipitated by the patient's current infectious state. Cardiology is following. Continue amiodarone accordingly. 6. Thrombocytopenia The patient was noted to have a normal platelet count in February 2019. While the etiology for the patient's thrombocytopenia is unclear, considerations would include DIC in the setting of sepsis versus a possible thrombotic microangiopathy. For now, platelet count is stable. If the patient were to develop bleeding, this may be the consequence of platelet dysfunction in the setting of uremia. Desmopressin may be required in that particular situation. 7. Elevated transaminases I suspect there is likely a component of shock liver at play here, given the patient's tenuous hemodynamics. A CT abdomen/pelvis was largely unrevealing. 8. Troponin elevation Likely secondary to demand ischemia in the setting of septic shock. 9. Super morbid obesity/history of medical noncompliance/obstructive sleep apnea/history of tobacco dependency, in remission Complicates care, management, recovery and prognosis. Continue tube feeds as ordered. Physical therapy to work with the patient. TIME: 40 minutes of critical care time, independent of procedures, was spent addressing the patient's acute hypoxemic respiratory failure, septic shock, metabolic encephalopathy, acute on chronic kidney disease, atrial fibrillation with rapid ventricular rate, thrombocytopenia, review of all data and collaboration with the care team. () Code Visit [id number]: [id number] Critical care first hour
--- NOTE | 2019-05-15 08:33 | PN_ITS ---
Patient Problems: Active and Suspected Problems (Last Reviewed 05/13/19 @ 20:07 by Trupti Bagley DO) Acute respiratory failure with hypoxia (Acute) Atrial fibrillation with rapid ventricular response (Acute) Thrombocytopenia (Acute) Dehydration (Acute) Septic shock (Acute) Acute febrile illness (Acute) source not yet identified Rhabdomyolysis (Acute) ARF (acute renal failure) (Acute) Uremic encephalopathy (Acute) Abnormal LFTs (Acute) Metabolic acidosis (Acute) Lactic acidosis (Acute) Subjective: Day #3 vancomycin and Zosyn Day #3 ventilator Day #3 left IJ 10 used to have high fevers. T-max over the past 24 hours is 103 ?F at midnight. She is 99% saturated on a 40% FiO2 today. Fluid balance on 05/14/2019 was positive at 1007. Fluid balance since admission is +6031. Urine output on 05/14/2019 was 1350 All lab was personally reviewed. White blood cell count today is 16.8 with 80% neutrophils. Hemoglobin is stable at 12.6 and platelets are up to 30,000 today. She has been transfused with a total of 2 units of pheresis platelets since admission. Potassium is 3.5 today. Serum bicarb is stable at 19. The BUN is 124 and the creatinine today is down to 2.42 from 3.99 at admission. LFTs are trending down. Total CK today is 1557. Phosphorus and magnesium are within normal limits. The vancomycin trough is 11.7. The blood culture is positive for Sphingomonas Paucimobilis Not opening her eyes to calling her name today. She resists me when I try to open her eyes. Not following commands....She is able to move her feet today and has been moving her hands since yesterday. She is tolerating the tube feed at goal. Has been off Levophed since yesterday. Blood pressure is stable. - Physical Exam Vitals/I&O's: Vital Signs Temp Pulse Resp BP Pulse Ox 100.6 F H 98 38 H 105/73 99 05/15/19 08:00 05/15/19 08:00 05/15/19 08:00 05/15/19 08:00 05/15/19 08:00 Oxygen Delivery Method Mechanical Ventilator Weight: 297 lb 13.512 oz Body Mass Index (BMI) 45.2 Finger Stick Blood Glucose 180 Intake and Output for Last 24 Hours 05/13/19 05/14/19 05/15/19 23:59 23:59 23:59 Intake Total 5138.45 / 5247.09 2357.35 / 2462.35 885.0 / 885.0 Output Total 550 / 550 1350 / 1350 450 / 450 Balance 4588.45 / 4697.09 1007.35 / 1112.35 435.0 / 435.0 General: No apparent distress, Well developed, Well nourished, - - moving hands and feet today. Not following commands. Not making eye contact. Resists when I try to pull the upper lids up. Shaking her head no but, I am not sure the shaking is purposeful. HEENT: PERRLA, Normocephalic Oral: - - unable to view the mucosa.....mouth is clamped around the tube Neck: Supple, Trachea Midline Lungs: Clear to auscultation Cardiovascular: No murmurs - but, heart sounds are distant., Irregular Rate - remains in AF....rate is better controlled. HR is now low 100's., No rub noted - no rub appreciated but the heart sounds are distant Abdomen: Bowel Sounds Present, Soft, - Extremities: - - She has edema of the R>L foot. The left foot is cooler than the R. DP is palpable BL today and the cyanosis of the nail beds is improved and so has the mottling of the toes and plantar surfaces. No change in the scabs over the R great and second toes Skin: No rashes, No breakdown, - - no redness or maceration in the axilla's or in the skin folds and perineum Neurological: Cranial nerves II-XII grossly intact, Neuro grossly intact Microbiology Past 72 Hours 05/13/19 19:40 Blood Culture (Wb) - Left Forearm Blood Culture - Preliminary 05/13/19 11:54 Blood Culture (Wb) - Left Hand Blood Culture - Final Gram negative joan 05/13/19 18:15 Blood Culture (Wb) - Central Line Blood Culture - Preliminary 05/13/19 11:40 Blood Culture (Wb) - Anticubital Left Blood Culture - Preliminary Sphingomonas paucimobilis 05/13/19 22:55 Sputum, Induced/Lukens Gram Stain - Final 05/13/19 22:55 Sputum, Induced/Lukens Respiratory Culture - Preliminary Mixed Culture Laboratory Results 05/13/19 12:15: WBC 14.5 H, RBC 4.34, Hgb 13.3, Hct 40.7, MCV 93.8, MCH 30.6, MCHC 32.7, RDW Std Deviation 57.0 H, RDW Coeff of Pierre 16.3 H, Plt Count 20 L*, MPV TNP, Immature Gran % (Auto) 2.100 H, Neut % (Auto) 87.5 H, Lymph % (Auto) 3.9 L, [place] % (Auto) 5.4, Eos % (Auto) 1.0, Baso % (Auto) 0.1, Absolute Neuts (auto) 12.7 H, Absolute Lymphs (auto) 0.56 L, Nucleated RBC % 0.3, Differential Comment , Diff Path Review Reviewed, Crenated Cell 1+ 05/14/19 04:45: Diff Path Review Reviewed 05/14/19 09:30: Sodium 142, Potassium 3.7, Chloride 112 H, Carbon Dioxide 19.0 L , Anion Gap 11, BUN 124 H*, Creatinine 2.78 H, Estim Creat Clear Calc 19.64, Est GFR (MDRD) Af Amer 22 L, Est GFR (MDRD) Non-Af 18 L, BUN/Creatinine Ratio 44.6 H , Glucose 206 H, Calcium 7.5 L, Total Creatine Kinase 2500 H 05/14/19 11:23: POC Glucose 160 H 05/14/19 11:45: Urine Creatinine 55.20 05/14/19 11:45: Ur Random Sodium 16 05/14/19 16:40: POC Glucose 130 H 05/14/19 17:20: WBC 14.7 H, RBC 4.25, Hgb 13.1, Hct 38.6, MCV 90.8, MCH 30.8, MCHC 33.9, RDW Std Deviation 54.2 H, RDW Coeff of Pierre 16.3 H, Plt Count 17 L*, MPV TNP, Diff Path Review November05/14/19 23:22: POC Glucose 222 H 05/14/19 : HIV 1&2 Antibody Non-Reactive 05/15/19 05:15: Random Vancomycin 11.7 05/15/19 05:15: WBC 16.8 H, RBC 4.12 L, Hgb 12.6, Hct 37.2, MCV 90.3, MCH 30.6, MCHC 33.9, RDW Std Deviation 53.7 H, RDW Coeff of Pierre 16.2 H, Plt Count 30 L*, Immature Gran % (Auto) 4.800 H, Neut % (Auto) 80.4 H, Lymph % (Auto) 5.7 L, [place] % (Auto) 8.6, Eos % (Auto) 0.1, Baso % (Auto) 0.4, Absolute Neuts (auto) 13.5 H, Absolute Lymphs (auto) 0.95, Nucleated RBC % 0, Differential Comment SCANNED, Diff Path Review May foll, Platelet Estimate MKD DEC, Plt Morphology Comment LARGE 05/15/19 05:15: Sodium 145, Potassium 3.5, Chloride 117 H, Carbon Dioxide 19.0 L , Anion Gap 9, BUN 124 H*, Creatinine 2.42 H, Estim Creat Clear Calc 22.56, Est GFR (MDRD) Af Amer 26 L, Est GFR (MDRD) Non-Af 22 L, BUN/Creatinine Ratio 51.2 H , Glucose 193 H, Calcium 7.7 L, Phosphorus 2.7, Magnesium 2.3, Total Bilirubin 3.10 H, AST 237 H, ALT 112 H, Alkaline Phosphatase 234 H, Total Creatine Kinase 1557 H, Total Protein 5.6 L, Albumin 1.8 L, Globulin 3.8, Albumin/Globulin Ratio 0.5 L 05/15/19 05:46: POC Glucose 180 H Current Medications Acetaminophen (Tylenol Liquid) 650 mg NG Q6 [facility] Last Admin: 05/15/19 05:49 Dose: 650 mg Documented by: Amiodarone HCl (Cordarone) 200 mg PO BID [facility] Last Admin: 05/15/19 01:57 Dose: 200 mg Documented by: Calamine/Phenol (Calmoseptine Ointment) 1 applic TOPICAL TID [facility]; Protocol Last Admin: 05/15/19 05:50 Dose: 1 applicatio Documented by: Chlorhexidine Gluconate () 1 each TOPICAL DAILY [facility] Last Admin: 05/14/19 05:06 Dose: 1 each Documented by: Chlorhexidine Gluconate () 15 ml PO BID [facility] Last Admin: 05/14/19 21:41 Dose: 15 ml Documented by: Dextrose (D50w Syringe) 0 gm IV X1 PRN; Protocol PRN Reason: Hypoglycemia Last Admin: 05/13/19 23:56 Dose: 12.5 gm Documented by: Famotidine (Pepcid) 20 mg PO DAILY [facility] Last Admin: 05/14/19 09:46 Dose: 20 mg Documented by: Glucagon () 1 mg IM .X1 PRN PRN Reason: Hypoglycemia Vancomycin IV Pharmacy to Dose (1 ea/ Sodium Chloride) 500 mls @ 250 mls/hr IV PRN PRN; Protocol PRN Reason: Rx to Dose Piperacillin Sod/Tazobactam (Sod 3.375 gm/ Sodium Chloride) 50 mls @ 12.5 mls/hr IV Q12 [facility] Last Infusion: 05/15/19 02:47 Dose: Infused Documented by: Fentanyl () 100 mls @ 2.5 mls/hr IV UD [facility]; Protocol Last Titration: 05/15/19 08:00 Dose: 50 mcg/hr, 5 mls/hr Documented by: Enteral Nutritional Formula (Vital Af 1.2 Cesar Liquid) 1,000 mls @ 20 mls/hr GT .Q48H [facility] Last Admin: 05/14/19 10:21 Dose: 20 mls/hr Documented by: Insulin Human Lispro (Humalog Kwikpen (Bkc)) 0 unit SC Q6 [facility]; Protocol Last Admin: 05/15/19 05:49 Dose: 1 u Documented by: Nystatin (Mycostatin Powder) 1 applic TOPICAL TID [facility]; Protocol Last Admin: 05/15/19 05:49 Dose: 1 applicatio Documented by: Ondansetron HCl (Zofran) 4 mg IV Q8H PRN PRN PRN Reason: NAUSEA/VOMITING Sodium Chloride () 10 - 40 ml IV UD PRN PRN Reason: Multilumen/Santos Flush Last Admin: 05/14/19 09:46 Dose: 10 ml Documented by: Sodium Chloride (0.9% Nacl (Sterile) Posiflush) 10 - 40 ml IV UD PRN PRN Reason: Port access or dressing change Sodium Chloride () 10 - 40 ml IV UD PRN PRN Reason: SALINE FLUSH Medical Necessity - Tobacco Use Smoking Status: Former smoker - she quit in 2018 but prior to that she smoked 1- 1/2 packs of cigarettes daily for at least 40 years. Tobacco Use: Cigarettes Assessment/Plan All Active Problems (Last Reviewed 05/13/19 @ 20:07 by Trupti Bagley DO) Acute respiratory failure with hypoxia (Acute) Atrial fibrillation with rapid ventricular response (Acute) Thrombocytopenia (Acute) Dehydration (Acute) Septic shock (Acute) Acute febrile illness (Acute) Rhabdomyolysis (Acute) ARF (acute renal failure) (Acute) Uremic encephalopathy (Acute) Abnormal LFTs (Acute) Metabolic acidosis (Acute) Lactic acidosis (Acute) Cat bite involving extremity (Resolved) Cellulitis (Resolved) Dysphagia (Resolved) Ulcer of right lower leg (Resolved) Day #3 Zosyn and vancomycin Day # 3 of the LIJ Day #3 on the vent Impressions 1. septic shock secondary to suspected aspiration pneumonia with BC's + for GM + cocci and GM neg rods. 1 BC is growing Sphingomonas Paucimobilis? Off Levophed. continue Zosyn and VAnco. consult placed for Dr. Alarcon. 2. acute hypoxic respiratory failure - intubated and mechanically ventilated. not ready for SBT due to mental status/uremia 3. Atrial fibrillation with rapid ventricular response - HR is much better controlled with amiodarone. Transitioned to PO amiodarone on 05/14. 4. Non-oliguric Acute renal failure-etiology unknown, more likely than not due to sepsis and dehydration. Appreciate Dr. Hanley's input. The fractional excretion of sodium is less than 1% which is consistent with prerenal azotemia. Creatinine is improving with hydration but the BUN remains high. We will continue IV fluids. 5. Severe thrombocytopenia- likely due to GM negative sepsis and also uremia. Transfuse PLT's as needed to keep the PLT count > 20. PLT's are 30,000 today a fter 2 units of pheresed platelets since admission 6. Uremic/toxic encephalopathy - will discuss with Dr. Hanley possible dialysis since she is now stable off Levophed. 7. Rhabdomyolysis-continue IV fluids 8. hx of anxiety/depression and chronic benzo and narcotic dependence - May need to deal with withdraw when she is off the Fentanyl. The med list from admission does not include any benzo's....not sure how accurate the list is. she last got Xtampsa and Oxycodone from Dr. [place] in February 9. History of a bioprosthetic aortic valve replacement 10. Hypertension, hyperlipidemia, obstructive sleep apnea (not compliant with PAP therapy), GERD, chronic back pain, morbid obesity complicate care, management and prognosis ... she is historically not compliant with physician follow up. Hepatitis panel is pending. Tube feeds at goal Consulted Dr. Alarcon Continue Jeanette Recheck the lab in the AM Code Visit Inpatient E&M: 33162 Subs Hosp L3
[2019-05-15] MEDS: CHLORHEXIDINE GLUC 2% CLOTH 1 EACH TOWELETTE TOPICAL (09:44)
[2019-05-15] MEDS: Famotidine 20 MG Tablet PO (09:45)
[2019-05-15] MEDS: Chlorhexidine 15 ML PO ×2 (09:46→21:49)
--- NOTE | 2019-05-15 10:22 | CASEMGMT ---
CHRIS BANERJEE Assessment Presentation: Septic Shock, pneumonia Pt unable to participate in assessment, remains on ventilator. Call to Nephew who was willing to assist with assessment. Per nephew, pt lives independently, uses walker. Nephew states he helps her alot with transportation, chores, grocery shopping. Discussed CM role for dc planning. Discussed pt may need HHC vs SNF on dc and CM/SW -Call received from CHRISS Mathias with [facility] PH: [phone]. Updated on pt's clinical. Verified pt does not have services in the home @ this time. PCP: Dr. Hickey Preferred Pharmacy: [facility] Insurance: [employer] Prescription Benefit: yes LNOK: Trell Yañez (DPOA) Living Arrangements: Lives independently at home. . Independent in ADL's. No assistance at home presently. Nephew assists with grocery shopping, appointments and chores when needed. Transportation: Pt does not drive. Per Nephew, pt uses taxi card, hospital van or nephew will drive her. DME: walker,CPAP, no home oxygen HHC: none presently. Patient DC goals: undetermined DC PLAN: undetermined. Anticipate SNF may be needed on dc. Will continue to follow Carlos THOMAS RN ACM
--- NOTE | 2019-05-15 10:27 | PCM.RX.CS ---
Consult Pharmacy has been consulted to manage selected antiobiotic: Vancomycin Type of Consult: Follow-up Suspected Infection: Other Prior Doses of Antibiotics Received/Current Regimen: Received 2gm iv x 1 on 05.13.19 @1718 Labs: Sodium 145 mmol/L (136-145) 05/15/19 05:15 Potassium 3.5 mmol/L (3.5-5.1) 05/15/19 05:15 Chloride 117 mmol/L (98-107) H 05/15/19 05:15 Carbon Dioxide 19.0 mmol/L (21.0-32.0) L 05/15/19 05:15 Anion Gap 9 (5-15) 05/15/19 05:15 BUN 124 mg/dL (7-18) H* 05/15/19 05:15 Creatinine 2.42 mg/dL (0.55-1.02) H 05/15/19 05:15 Est GFR (MDRD) Af Amer 26 mL/min (>60) L 05/15/19 05:15 Est GFR (MDRD) Non-Af 22 mL/min (>60) L 05/15/19 05:15 BUN/Creatinine Ratio 51.2 RATIO (10-20) H 05/15/19 05:15 Glucose 193 mg/dL (74-106) H 05/15/19 05:15 Random Vancomycin 11.7 ug/mL (0.0-15.0) 05/15/19 05:15 Microbiology: Microbiology 05/13/19 19:40 Blood Culture (Wb) - Left Forearm Blood Culture - Preliminary 05/13/19 11:54 Blood Culture (Wb) - Left Hand Blood Culture - Final Gram negative joan 05/13/19 18:15 Blood Culture (Wb) - Central Line Blood Culture - Preliminary 05/13/19 11:40 Blood Culture (Wb) - Anticubital Left Blood Culture - Preliminary Sphingomonas paucimobilis 05/13/19 22:55 Sputum, Induced/Lukens Gram Stain - Final 05/13/19 22:55 Sputum, Induced/Lukens Respiratory Culture - Preliminary Mixed Culture Weight used for dosin kg Estimated Creatinine Clearance: ~23ml/min Goal Trough: 15-20 mcg/mL Pharmacy Plan for Drug Dosing: Random level this AM was 11.7 (36 hrs post dose). Renal function slightly improved. Will begin 1250mg iv q24h this AM and get another random level in AM 05.16.. Pharmacy Service will continue to monitor and adjust dosing as required. Follow-Up Labs: Trough Other - random level 05.16 @0930
[2019-05-15 11:35] LABS: Haptoglobin 160 mg/dL (34-200)
[2019-05-15 11:35] LABS: Hepatitis B Core AB IgM Negative (Negative)
[2019-05-15 11:41] LABS: Bedside Glucose 131 mg/dL (70-110)
[2019-05-15 11:47] LABS: Pathologist Review Reviewed
[2019-05-15 11:50] LABS: Pathologist Review Reviewed
--- NOTE | 2019-05-15 13:20 | CON.PCM_ITS ---
Problem List (1) Septic shock Status: Acute Reason for Consult: bacteremia Consulted by: Dr. Llanes History of Present Illness: The patient is a 64 year old F found down at home, taken to ED by EMS. Found to be in septic shock, resp failure, ALBERTO, elevated CK, elevated LFTs. Started on vanc/zosyn. Now off pressors, still febrile to 103 last night. Minimal sedation, eyes open, unable to follow commands. Bcx now (+) with sphingomonas. Minimal secretions from ETT per nursing. ROS unobtainable - Medical History Past Medical History (Chronic Problems): Chronic Problems (Last Reviewed 05/13/19 @ 20:07 by Trupti Bagley DO) History of aortic valve replacement with bioprosthetic valve (Chronic) Tobacco dependence in remission (Chronic) quit in 2018 after smoking 1 and 1/2 PPD for 40 years Benzodiazepine dependence (Chronic) COPD (chronic obstructive pulmonary disease) case management patient (Chronic) Obstructive sleep apnea (Chronic) complaint with CPAP per nephew but has not had a sleep study in many years and she has gained a lot of wt. Anxiety (Chronic) Depression (Chronic) GERD (gastroesophageal reflux disease) (Chronic) Hyperlipidemia (Chronic) Morbid obesity (Chronic) Degenerative disc disease (Chronic) HTN (hypertension) (Chronic) Opiate dependence (Chronic) Allergies/Adverse Reactions: Allergies Iodinated Contrast Media [CONTRASTS] Allergy (Verified 04/08/19 09:57) Swelling lidocaine [From Lidoderm] Allergy (Verified 04/08/19 09:57) Rash Home Medications: Ambulatory Orders Medication Instructions Recorded Aspirin E.C. [Ecotrin] 81 mg PO DAILY@0800 12/31/14 Fluticasone 0.05% [Flonase Nasal 2 spray NASAL QHS 12/31/14 [place]] Allopurinol [Zyloprim] 300 mg PO DAILY 03/20/16 Magnesium Oxide [Mag-Ox 400] 400 mg PO BID 05/22/16 Albuterol Inhaler [Ventolin Hfa] 1 - 2 puff INHALATION Q4H PRN PRN 07/26/16 Bupropion HCl [Bupropion HCl Sr] 300 mg PO DAILY 07/26/16 Cyclosporine [Restasis] 2 drp EACH EYE BID 07/26/16 Aripiprazole [Abilify] 10 mg PO DAILY 03/06/19 Pantoprazole Sodium 40 mg PO DAILY 03/06/19 Pramipexole Di-HCl [Mirapex] 1 mg PO DAILY 03/06/19 Alendronate Sodium [Fosamax] 70 mg PO SA 03/09/19 Atorvastatin Calcium [Lipitor] 20 mg PO DAILY 03/09/19 Calcium Carbonate/Vitamin D3 1 ea PO BID 03/09/19 [Oyster Shell 500-Vit D3 200 Tb] Carvedilol 25 mg PO BID 03/09/19 Cholecalciferol (Vitamin D3) 1,000 unit PO DAILY 03/09/19 [Vitamin D3] Citalopram [Celexa] 20 mg PO DAILY 03/09/19 Cyclobenzaprine HCl 10 mg PO BID PRN 03/09/19 Furosemide [Lasix] 40 mg PO DAILY 03/09/19 Potassium Chloride [Klor-Con M10] 20 meq PO BID 03/09/19 Trazodone HCl 100 mg PO QHS 03/09/19 Acetaminophen [Tylenol Tablet] 650 mg PO Q6H PRN PRN tab 03/12/19 gabapentin 300 mg capsule 300 mg PO QWEEK cap 04/08/19 oxycodone ER 9 mg capsule sprinkle 9 mg PO BID 04/08/19 extended release 12 hr(DON'T CRUSH) - Social History SMOKING STATUS:: Former smoker Vital Signs Temp Pulse Resp BP Pulse Ox 99.8 F H 98 28 H 128/99 H 98 05/15/19 13:00 05/15/19 13:00 05/15/19 13:00 05/15/19 13:00 05/15/19 13:00 Oxygen Delivery Method Mechanical Ventilator Weight: 135.1 kg Body Mass Index (BMI) 45.2 Finger Stick Blood Glucose 180 Microbiology Past 72 Hours 05/13/19 22:55 Gram Stain - Final Sputum, Induced/Lukens Respiratory Culture - Preliminary Gram negative 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 05/13/19 19:40 Blood Culture - Preliminary Blood Culture (Wb) - Left Forearm 05/13/19 11:54 Blood Culture - Final Blood Culture (Wb) - Left Hand Gram negative joan 05/13/19 18:15 Blood Culture - Preliminary Blood Culture (Wb) - Central Line 05/13/19 11:40 Blood Culture - Preliminary Blood Culture (Wb) - Anticubital Left Sphingomonas paucimobilis Laboratory Tests Past 24 Hrs 05/13/19 05/13/19 05/14/19 12:15 17:55 08:00 WBC 14.5 H RBC 4.34 Hgb 13.3 Hct 40.7 MCV 93.8 MCH 30.6 MCHC 32.7 RDW Std Deviation 57.0 H RDW Coeff of Pierre 16.3 H Plt Count 20 L* MPV TNP Immature Gran % (Auto) 2.100 H Neut % (Auto) 87.5 H Lymph % (Auto) 3.9 L [place] % (Auto) 5.4 Eos % (Auto) 1.0 Baso % (Auto) 0.1 Absolute Neuts (auto) 12.7 H Absolute Lymphs (auto) 0.56 L Nucleated RBC % 0.3 Differential Comment Diff Path Review Reviewed Platelet Estimate Plt Morphology Comment Crenated Cell 1+ Haptoglobin 160 Sodium Potassium Chloride Carbon Dioxide Anion Gap BUN Creatinine Estim Creat Clear Calc Est GFR (MDRD) Af Amer Est GFR (MDRD) Non-Af BUN/Creatinine Ratio Glucose Calcium Phosphorus Magnesium Total Bilirubin AST ALT Alkaline Phosphatase Total Creatine Kinase Total Protein Albumin Globulin Albumin/Globulin Ratio Random Vancomycin Hepatitis A IgM Ab Negative Hep Bs Antigen Negative Hep B Core IgM Ab Negative 05/14/19 05/15/19 05/15/19 17:20 05:15 05:15 WBC 14.7 H 16.8 H RBC 4.25 4.12 L Hgb 13.1 12.6 Hct 38.6 37.2 MCV 90.8 90.3 MCH 30.8 30.6 MCHC 33.9 33.9 RDW Std Deviation 54.2 H 53.7 H RDW Coeff of Pierre 16.3 H 16.2 H Plt Count 17 L* 30 L* MPV TNP Immature Gran % (Auto) 4.800 H Neut % (Auto) 80.4 H Lymph % (Auto) 5.7 L [place] % (Auto) 8.6 Eos % (Auto) 0.1 Baso % (Auto) 0.4 Absolute Neuts (auto) 13.5 H Absolute Lymphs (auto) 0.95 Nucleated RBC % 0 Differential Comment SCANNED Diff Path Review Reviewed Reviewed Platelet Estimate MKD DEC Plt Morphology Comment LARGE Crenated Cell Haptoglobin Sodium Potassium Chloride Carbon Dioxide Anion Gap BUN Creatinine Estim Creat Clear Calc Est GFR (MDRD) Af Amer Est GFR (MDRD) Non-Af BUN/Creatinine Ratio Glucose Calcium Phosphorus Magnesium Total Bilirubin AST ALT Alkaline Phosphatase Total Creatine Kinase Total Protein Albumin Globulin Albumin/Globulin Ratio Random Vancomycin 11.7 Hepatitis A IgM Ab Hep Bs Antigen Hep B Core IgM Ab 05/15/19 05:15 WBC RBC Hgb Hct MCV MCH MCHC RDW Std Deviation RDW Coeff of Pierre Plt Count MPV Immature Gran % (Auto) Neut % (Auto) Lymph % (Auto) [place] % (Auto) Eos % (Auto) Baso % (Auto) Absolute Neuts (auto) Absolute Lymphs (auto) Nucleated RBC % Differential Comment Diff Path Review Platelet Estimate Plt Morphology Comment Crenated Cell Haptoglobin Sodium 145 Potassium 3.5 Chloride 117 H Carbon Dioxide 19.0 L Anion Gap 9 BUN 124 H* Creatinine 2.42 H Estim Creat Clear Calc 22.56 Est GFR (MDRD) Af Amer 26 L Est GFR (MDRD) Non-Af 22 L BUN/Creatinine Ratio 51.2 H Glucose 193 H Calcium 7.7 L Phosphorus 2.7 Magnesium 2.3 Total Bilirubin 3.10 H AST 237 H ALT 112 H Alkaline Phosphatase 234 H Total Creatine Kinase 1557 H Total Protein 5.6 L Albumin 1.8 L Globulin 3.8 Albumin/Globulin Ratio 0.5 L Random Vancomycin Hepatitis A IgM Ab Hep Bs Antigen Hep B Core IgM Ab - Other Studies Radiology: [] reviewed Other Studies: [] Route of nutrition/ use of supplements: [] Nutritional Intake: [] IV Site: [] Jarrell Catheter: [] - Physical Exam General: Non-Cooperative HEENT: PERRLA, EOMI Neck: Supple, No Nodes, - - L temp CVC Lungs: Clear to auscultation, Normal air movement, Diminished Cardiovascular: Murmur, Tachycardic Abdomen: Soft, Non Tender, Non-Distended, Obese Extremities: Cyanosis, Edema Skin: Ulcer/ Wound - small shallow ulcers, healing on toes, - - small ? splinter hemorrhage on R 2nd finger IV Site: Central Line, without redness Musculoskeletal: No Tenderness to Palpation of Joints or Extremities - Assessment/Plan Antibiotics: [] Assessment/Plan: [] Active and Suspected Problems (Last Reviewed 05/13/19 @ 20:07 by Vivi Sementi, DO) Acute respiratory failure with hypoxia (Acute) Atrial fibrillation with rapid ventricular response (Acute) Thrombocytopenia (Acute) Dehydration (Acute) Septic shock (Acute) Acute febrile illness (Acute) source not yet identified Rhabdomyolysis (Acute) ARF (acute renal failure) (Acute) Uremic encephalopathy (Acute) Abnormal LFTs (Acute) Metabolic acidosis (Acute) Lactic acidosis (Acute) septic shock with sphingomonas bacteremia - sputum cx with GPC, GNR, GNR. Off pressors, ALBERTO and LFTs improving. Cont vanc/zosyn. HIV was neg, hep panel pending. With artificial valve, possible splinter hemorrhage, bacteremia, and poor views on TTE, recommend she get NILDA. Will follow, thank you, d/w Dr. Llanes and Dr. Bagley.
--- NOTE | 2019-05-15 14:10 | NURSING ---
Upon entering patients room gurgling was noted to be coming from around her ET tube. Respiratory notified and 1cc air inserted into ET cuff stopping the leak. Pt ET and oral cavity suctioned with minimal secretions obtained. Elevated HR and RR along with decreased pulse ox noted. Dr. Bagley notified, Chest Xray ordered.
--- NOTE | 2019-05-15 14:30 | RAD_ITS ---
STUDY: X-RAY CHEST REASON FOR EXAM: Female, 64 years old. Dyspnea TECHNIQUE: Frontal view of the chest COMPARISON: 05/14/2019 FINDINGS: The support lines and tubes are unchanged. There are low lung volumes. The lungs are grossly clear. The patient is status post sternotomy. The aorta is stable in size. The visualized osseous structures are within normal limits. RAD/Chest 1 View (Portable) IMPRESSION: Low lung volumes. Grossly clear lungs. Electronically Signed: Chriss Martinez, at 15:33 EDT Tel , Service support ,
--- NOTE | 2019-05-15 14:40 | NURSING ---
Dr. Llanes notified per Dr. Bagley request. Haldol 1mg IV x1 ordered.
[2019-05-15] MEDS: Haloperidol Lactate 5 MG/ML Vial 1 MG IV (14:50)
--- NOTE | 2019-05-15 15:30 | NURSING ---
Dr. Llanes notified of patient continued agitation and ineffectiveness of haldol. precedex ordered.
[2019-05-15] MEDS: LORazepam 2 MG/ML Syringe IV (16:20)
--- NOTE | 2019-05-15 16:20 | NURSING ---
Dr. Bagley updated on pt's continued increasing temperature and loss of responses to painful stimuli. Stat CT brain per Dr. Bagley. Ativan 2mg x1 ordered. VBG ordered.
--- NOTE | 2019-05-15 16:30 | CPS ---
Multiple attempts made to draw ABG, Dr Bagley at bedside, requested VBG
[2019-05-15 16:41] LABS: Blood Gas Specimen Type VEN; FI02 100; O2 Delivery Device Vent; PEEP 5; RR 12; Time Given 1636; VBG BASE EXCESS -11 mmol/L (-1.0-3.5); VBG Bicarbonate 16 mmol/L (22-26); VBG Oxygen Content 17 mmol/L (23-33); VBG PO2 32 mmHg (25-40); VBG SO2 56 % (50-70); VBG pCO2 32.8 mmHg (41-51); VBG pH 7.29 (7.32-7.42); Vt 450
--- NOTE | 2019-05-15 16:45 | NURSING ---
Addendum entered by Kalina Archibald 05/15/19 17:46: All sedation and pain medications on hold at this time d/t pt change in mental status and responses. Original Note: PT transported to CT per Evens RN and Zoë SCOTT.
--- NOTE | 2019-05-15 16:55 | CT_ITS ---
STUDY: CT BRAIN WITHOUT CONTRAST REASON FOR EXAM: Female, 64 years old. Change in reflexes RADIATION DOSAGE (If Supplied By Facility): CTDIvol = ( 60.81 ) mGy, DLP = ( 1089.89 ) mGycm TECHNIQUE: Transaxial CT imaging of the brain was performed without administration of intravenous contrast material. Individualized dose optimization techniques were used for this CT. COMPARISON: May 13, 2019. FINDINGS: Normal soft tissue structures. Normal calvarium. Mild cortical atrophy and periventricular white matter ischemic changes. Normal basal ganglia and thalami. Normal brainstem. Normal cerebellum. There is no intracranial hemorrhage. There are no findings of an acute ischemic infarction. Post surgical changes of the orbits Mucosal thickening in left sphenoid sinus. No significant change since prior exam CT/Brain/Head without Contrast IMPRESSION: Mild cortical atrophy and periventricular white matter ischemic changes. No evidence for acute bleed. If concern for acute infarct MRI recommended Electronically Signed: Reynaldo Hall MD at 17:19 EDT , Service support ,
--- NOTE | 2019-05-15 17:33 | PCM.PN.BLA ---
Progress Note Called by Nursing to see the patient with Tachycardia, Tachypnea and increasing fever. Fever 104 and then when back form CT temp > 105 despite cooling blanket, ice in the axillas and scheduled Tylenol. BP started dropping and she was not responding or opening her eyes. No tonic clonic activity observed. Had Haldol 1 mg this afternoon. Temp was starting to go up prior to the Haldol but it has continued to increase. Not moving. PERRL. + BL corneal reflex. Flaccid extremities. No response to deep painful stimulus. Lungs - CTA RR rate 40's VBG with PH 7.28 Heart irreg and tachycardic in the 130's. Extremities are cold and there is cyanosis of the nail beds. Sent for a stat CT brain and there is no acute findings. She was given 2 mg of IV Ativan. Impressions 1. need to consider the possibility of neuroleptic malignant syndrome - will order Dantroline. Pharmacy notified. continue with the cooling blanket and the ice. Continue scheduled Tylenol. Stat lab now to check lactic acid, CBC, BMP, CPK. 1 L NS bolus for hypotension and Levophed if the MAP continues to be less than 65. Lab reordered for the morning. Able to obtain ABG with US (after 1 amp of bicarb) 7.46, CO2 21.7, O2 227 on 100% FIO2. Will attempt A line after BP increases using the US. STROKE Vital Signs/Narrative: Vital Signs Temp Pulse Resp BP Pulse Ox 05/15/19 15:29 117 H 44 H 05/15/19 15:00 101.5 F H 124 H 42 H 166/151 H 100 05/15/19 14:56 122 H 49 H 05/15/19 14:19 122 H 45 H 92 05/15/19 14:00 99.9 F H 93 30 H 144/80 H 99
[2019-05-15 17:34] LABS: Hematocrit 39.4 % (37-47); Mean Corpuscular Hgb 30.3 pg (27.0-32.0); Mean Corpuscular Volume 91.8 fL (81-99); POSITIVE COUNT YES; RBC Distribution Width CV 16.8 % (11.6-14.6); RBC Distribution Width SD 56.7 fl (35.1-43.9); Red Blood Count 4.29 M/mm3 (4.2-5.4); White Blood Count 12.5 K/mm3 (4.4-11.0)
[2019-05-15] MEDS: Sodium Bicarbonate 8.4% 50 ML Syringe 50 MEQ IV (17:34)
--- NOTE | 2019-05-15 17:35 | NURSING ---
Dr. Bagley at bedside evaluating pt upon returning from CT scan. RT at bedside to attempt ABG and Art line. sedation continues to be held at this time.
[2019-05-15] MEDS: 0.9% Normal Saline 1,000 ML 999 ML IV (17:55)
[2019-05-15 18:00] LABS: Allen Test POS; Base Excess -8 mmol/L (-2 to +2); Bicarbonate 15.4 mmol/L (22-26); Blood Gas Specimen Type ART; FI02 100; Mode A-C; O2 Delivery Device Vent; PEEP 5; PO2 227 mmHG (75-100); RR 12; SITE R Radial; SO2 100 % (95-99); Time Given 1745; Total Carbon Dioxide 16 mmol/L; Vt 450; pCO2 21.7 mmHg (35-45); pH 7.46 (7.35-7.45)
[2019-05-15 18:12] LABS: Scan Indicated on CBC? Y/N YES- FLAGS NOTED
[2019-05-15 18:13] LABS: Platelet Count 15 K/mm3 (150-450)
[2019-05-15 18:20] LABS: Anion Gap 10 (5-15); BUN 122 mg/dL (7-18); BUN/Creat Ratio 49.4 RATIO (10-20); Calcium,Total 7.8 mg/dL (8.5-10.1); Chloride 120 mmol/L (98-107); Creatinine, Serum 2.47 mg/dL (0.55-1.02); EST Glomerular Filtration Rate 21 mL/min (>60); Est Glom Filt Rate - Afr Amer 25 mL/min (>60); Estimated Creatinine Clearance 22.11 ml/min; Glucose 117 mg/dL (74-106); Lactic Acid 2.8 mmol/L (0.4-2.0); Potassium 3.7 mmol/L (3.5-5.1); Sodium Level 147 mmol/L (136-145)
[2019-05-15 18:30] LABS: CPK Total, Creatine Kinase 1253 U/L (26-192)
--- NOTE | 2019-05-15 19:51 | PN.RENAL_ITS ---
Patient Problems: Active and Suspected Problems (Last Reviewed 05/13/19 @ 20:07 by Trupti Bagley DO) Acute respiratory failure with hypoxia (Acute) Atrial fibrillation with rapid ventricular response (Acute) Thrombocytopenia (Acute) Dehydration (Acute) Septic shock (Acute) Acute febrile illness (Acute) source not yet identified Rhabdomyolysis (Acute) ARF (acute renal failure) (Acute) Uremic encephalopathy (Acute) Abnormal LFTs (Acute) Metabolic acidosis (Acute) Lactic acidosis (Acute) Subjective: Following for ALBERTO. Patient is sedated on ventilator. Cannot do ROS. - Physical Exam Vitals/I&O's: Vital Signs Temp Pulse Resp BP Pulse Ox 103.6 F H 103 H 34 H 93/72 89 05/15/19 19:00 05/15/19 19:00 05/15/19 19:00 05/15/19 19:00 05/15/19 19:00 Oxygen Delivery Method Mechanical Ventilator Weight: 135.1 kg Body Mass Index (BMI) 45.2 Finger Stick Blood Glucose 180 Intake and Output for Last 24 Hours 05/13/19 05/14/19 05/15/19 23:59 23:59 23:59 Intake Total 5138.45 / 5247.09 2357.35 / 2462.35 2922.88 / 2922.88 Output Total 550 / 550 1350 / 1350 1250 / 1250 Balance 4588.45 / 4697.09 1007.35 / 1112.35 1672.88 / 1672.88 General: - - Sedated HEENT: Atraumatic Oral: - - intubated Neck: No JVD Lungs: Rhonchi Cardiovascular: Normal S1, Normal S2, No murmurs Abdomen: Soft, Non Tender, Non-Distended Extremities: No edema Microbiology Past 72 Hours 05/13/19 22:55 Sputum, Induced/Lukens Gram Stain - Final 05/13/19 22:55 Sputum, Induced/Lukens Respiratory Culture - Preliminary Gram negative 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 05/13/19 19:40 Blood Culture (Wb) - Left Forearm Blood Culture - Preliminary 05/13/19 11:54 Blood Culture (Wb) - Left Hand Blood Culture - Final Gram negative joan 05/13/19 18:15 Blood Culture (Wb) - Central Line Blood Culture - Preliminary 05/13/19 11:40 Blood Culture (Wb) - Anticubital Left Blood Culture - Preliminary Sphingomonas paucimobilis Laboratory Results 05/13/19 12:15: WBC 14.5 H, RBC 4.34, Hgb 13.3, Hct 40.7, MCV 93.8, MCH 30.6, MCHC 32.7, RDW Std Deviation 57.0 H, RDW Coeff of Pierre 16.3 H, Plt Count 20 L*, MPV TNP, Immature Gran % (Auto) 2.100 H, Neut % (Auto) 87.5 H, Lymph % (Auto) 3.9 L, Benzie % (Auto) 5.4, Eos % (Auto) 1.0, Baso % (Auto) 0.1, Absolute Neuts (auto) 12.7 H, Absolute Lymphs (auto) 0.56 L, Nucleated RBC % 0.3, Differential Comment , Diff Path Review Reviewed, Crenated Cell 1+ 05/13/19 17:55: Haptoglobin 160 05/14/19 08:00: Hepatitis A IgM Ab Negative, Hep Bs Antigen Negative, Hep B Core IgM Ab Negative 05/14/19 17:20: Diff Path Review Reviewed 05/14/19 23:22: POC Glucose 222 H 05/15/19 05:15: Random Vancomycin 11.7 05/15/19 05:15: WBC 16.8 H, RBC 4.12 L, Hgb 12.6, Hct 37.2, MCV 90.3, MCH 30.6, MCHC 33.9, RDW Std Deviation 53.7 H, RDW Coeff of Pierre 16.2 H, Plt Count 30 L*, Immature Gran % (Auto) 4.800 H, Neut % (Auto) 80.4 H, Lymph % (Auto) 5.7 L, Benzie % (Auto) 8.6, Eos % (Auto) 0.1, Baso % (Auto) 0.4, Absolute Neuts (auto) 13.5 H, Absolute Lymphs (auto) 0.95, Nucleated RBC % 0, Differential Comment SCANNED, Diff Path Review Reviewed, Platelet Estimate MKD DEC, Plt Morphology Comment LARGE 05/15/19 05:15: Sodium 145, Potassium 3.5, Chloride 117 H, Carbon Dioxide 19.0 L , Anion Gap 9, BUN 124 H*, Creatinine 2.42 H, Estim Creat Clear Calc 22.56, Est GFR (MDRD) Af Amer 26 L, Est GFR (MDRD) Non-Af 22 L, BUN/Creatinine Ratio 51.2 H , Glucose 193 H, Calcium 7.7 L, Phosphorus 2.7, Magnesium 2.3, Total Bilirubin 3.10 H, AST 237 H, ALT 112 H, Alkaline Phosphatase 234 H, Total Creatine Kinase 1557 H, Total Protein 5.6 L, Albumin 1.8 L, Globulin 3.8, Albumin/Globulin Ratio 0.5 L 05/15/19 05:46: POC Glucose 180 H 05/15/19 11:35: POC Glucose 131 H 05/15/19 16:37: Specimen Type VANESSA, O2 % 100, VBG pH 7.29 L, VBG pO2 32, VBG O2 Sat (Calc) 56, VBG O2 Content 17 L, VBG Base Excess -11 L, POC Mix VBG pCO2 Pt Tmp 32.8 L, Respiration Rate 12, O2 Delivery Device Vent, Tidal Volume 450, POC PEEP 5, Blood Gas Notified Whom TELLO CHAN, Blood Gas Notified Time 1636 05/15/19 17:20: Sodium 147 H, Potassium 3.7, Chloride 120 H, Carbon Dioxide 17.0 L, Anion Gap 10, BUN 122 H*, Creatinine 2.47 H, Estim Creat Clear Calc 22.11, Est GFR (MDRD) Af Amer 25 L, Est GFR (MDRD) Non-Af 21 L, BUN/Creatinine Ratio 49.4 H, Glucose 117 H, Calcium 7.8 L 05/15/19 17:20: Lactic Acid 2.8 H 05/15/19 17:20: WBC 12.5 H, RBC 4.29, Hgb 13.0, Hct 39.4, MCV 91.8, MCH 30.3, MCHC 33.0, RDW Std Deviation 56.7 H, RDW Coeff of Pierre 16.8 H, Plt Count 15 L*, Differential Comment , Diff Path Review November05/15/19 17:20: Total Creatine Kinase 1253 H 05/15/19 17:54: Specimen Type ART, Sample Site R Radial, pH 7.46 H, Bicarbonate Actual 15.4 L, POC Total CO2 16, Base Excess -8 L, O2 Saturation 100 H, O2 % 100, ABG pCO2 21.7 L, ABG pO2 227 H, Gennaro Test POS, Respiration Rate 12, O2 Delivery Device Vent, Vent Mode A-C, Tidal Volume 450, POC PEEP 5, Blood Gas Notified Whom TELLO CHAN, Blood Gas Notified Time 1745 Current Medications Acetaminophen (Tylenol Liquid) 650 mg NG Q6 [facility] Last Admin: 05/15/19 18:22 Dose: 650 mg Documented by: Amiodarone HCl (Cordarone) 200 mg PO BID [facility] Last Admin: 05/15/19 09:50 Dose: 200 mg Documented by: Calamine/Phenol (Calmoseptine Ointment) 1 applic TOPICAL TID [facility]; Protocol Last Admin: 05/15/19 15:28 Dose: 1 applicatio Documented by: Chlorhexidine Gluconate () 1 each TOPICAL DAILY [facility] Last Admin: 05/15/19 09:44 Dose: 1 each Documented by: Chlorhexidine Gluconate () 15 ml PO BID [facility] Last Admin: 05/15/19 09:46 Dose: 15 ml Documented by: Dextrose (D50w Syringe) 0 gm IV X1 PRN; Protocol PRN Reason: Hypoglycemia Last Admin: 05/13/19 23:56 Dose: 12.5 gm Documented by: Famotidine (Pepcid) 20 mg PO DAILY [facility] Last Admin: 05/15/19 09:45 Dose: 20 mg Documented by: Glucagon () 1 mg IM .X1 PRN PRN Reason: Hypoglycemia Vancomycin IV Pharmacy to Dose (1 ea/ Sodium Chloride) 500 mls @ 250 mls/hr IV PRN PRN; Protocol PRN Reason: Rx to Dose Piperacillin Sod/Tazobactam (Sod 3.375 gm/ Sodium Chloride) 50 mls @ 12.5 mls/hr IV Q12 [facility] Last Infusion: 05/15/19 15:26 Dose: Infused Documented by: Fentanyl () 100 mls @ 2.5 mls/hr IV UD [facility]; Protocol Last Titration: 05/15/19 16:22 Dose: Infused Documented by: Enteral Nutritional Formula (Vital Af 1.2 Cesar Liquid) 1,000 mls @ 20 mls/hr GT .Q48H [facility] Last Admin: 05/14/19 10:21 Dose: 20 mls/hr Documented by: Vancomycin HCl 1,250 mg/ (Sodium Chloride) 275 mls @ 167 mls/hr IV Q24H [facility] Last Infusion: 05/15/19 11:37 Dose: Infused Documented by: Dexmedetomidine HCl 400 mcg/ (Sodium Chloride) 100 mls @ 16.888 mls/hr CONT INF .Q5H56M [facility]; Protocol Last Titration: 05/15/19 16:25 Dose: 0 mcg/kg/hr, 0 mls/hr Documented by: Norepinephrine Bitartrate 8 mg (/ Sodium Chloride) 250 mls @ 9.375 mls/hr CONT INF .[id number] [facility]; Protocol Sterile Water 60 ml/ (Dantrolene Sodium 20 mg/ N/A) 60 mls @ 999 mls/hr IV .Q3MIN [facility] Last Infusion: 05/15/19 19:48 Dose: Infused Documented by: Insulin Human Lispro (Humalog Kwikpen (Bkc)) 0 unit SC Q6 [facility]; Protocol Last Admin: 05/15/19 18:34 Dose: Not Given Documented by: Nystatin (Mycostatin Powder) 1 applic TOPICAL TID [facility]; Protocol Last Admin: 05/15/19 15:28 Dose: 1 applicatio Documented by: Sodium Chloride () 10 - 40 ml IV UD PRN PRN Reason: Multilumen/Santos Flush Last Admin: 05/14/19 09:46 Dose: 10 ml Documented by: Sodium Chloride (0.9% Nacl (Sterile) Posiflush) 10 - 40 ml IV UD PRN PRN Reason: Port access or dressing change Sodium Chloride () 10 - 40 ml IV UD PRN PRN Reason: SALINE FLUSH Medical Necessity - Tobacco Use Smoking Status: Former smoker - she quit in 2018 but prior to that she smoked 1- 1/2 packs of cigarettes daily for at least 40 years. Tobacco Use: Cigarettes Assessment/Plan All Active Problems (Last Reviewed 05/13/19 @ 20:07 by Trupti Bagley DO) Acute respiratory failure with hypoxia (Acute) Atrial fibrillation with rapid ventricular response (Acute) Thrombocytopenia (Acute) Dehydration (Acute) Septic shock (Acute) Acute febrile illness (Acute) Rhabdomyolysis (Acute) ARF (acute renal failure) (Acute) Uremic encephalopathy (Acute) Abnormal LFTs (Acute) Metabolic acidosis (Acute) Lactic acidosis (Acute) Cat bite involving extremity (Resolved) Cellulitis (Resolved) Dysphagia (Resolved) Ulcer of right lower leg (Resolved) 1. Acute kidney injury. No prior history of CKD or prior SCr for comparison. ALBERTO is likely due to ischemic ATN related to septic shock. There is also component of ALBERTO from effective volume depletion. Urine output has responded to volume resuscitation. She is not oliguric and renal function has remained stable in the past 48 hrs despite her critical illness and hemodynamic instability. No RBC or significant protein in the urine to suggest acute GN. No hydronephrosis on abdominal CT. She does have thrombocytopenia, but low suspicion for aHUS at this point since renal function has improved and Hgb is stable. No urgent need for MEDICAL TRANSCRIBER. Keep MAP>65. Avoid nephrotoxins such as NSAID/IV contrast. Continue fluid boluses as needed. There is no current evidence of volume overload. On the other hand, she likely has significant volume loss with ongoing fever. Will follow closely. 2. Septic shock. Has GNB blood stream infection. Off pressor currently. Antibiotics as per hospitalist. Has persistent fever which is being investigated by primary service. 3. Acute hypoxic respiratory failure. Has pneumonia. Antibiotic as per hospitalist. Vent management as per goodwill ambassador. Above discussed with Dr. García.
--- NOTE | 2019-05-15 20:31 | NURSING ---
CAM unable to be assessed d/t RASS -5.
[2019-05-15 21:30] LABS: Reflex Lactate? Y
[2019-05-15] MEDS: TITRATION PARAMETER CHANGE 1 EACH IV (21:43)
[2019-05-15] MEDS: 0.9% Saline Lock 10 ML Syringe IV (21:48)
[2019-05-15 22:12] LABS: Lactic Acid 2.5 mmol/L (0.4-2.0)
[2019-05-15 23:10] LABS: Bedside Glucose 25 mg/dL (70-110)
[2019-05-15 23:25] LABS: Glucose 186 mg/dL (74-106)
[2019-05-16] VITALS (54 sets, daily range): BP systolic 82–170; BP diastolic 20–151; PULSE 93–132; RESP 12–48; TEMP 36.9–40.7; O2SAT 1–100
[2019-05-16 04:49] LABS: Albumin, Serum 1.5 g/dL (3.2-5.0); BUN 130 mg/dL (7-18); BUN/Creat Ratio 52.6 RATIO (10-20); Calcium,Total 7.3 mg/dL (8.5-10.1); Chloride 116 mmol/L (98-107); Creatinine, Serum 2.47 mg/dL (0.55-1.02); EST Glomerular Filtration Rate 21 mL/min (>60); Est Glom Filt Rate - Afr Amer 25 mL/min (>60); Estimated Creatinine Clearance 22.11 ml/min; Glucose 213 mg/dL (74-106); Phosphorus 3.8 mg/dL (2.5-4.9); Potassium 4.4 mmol/L (3.5-5.1); Sodium Level 145 mmol/L (136-145)
[2019-05-16] MEDS: CHLORHEXIDINE GLUC 2% CLOTH 1 EACH TOWELETTE TOPICAL (05:13)
[2019-05-16] MEDS: Nystatin Powder 15gm Bottle 1 APPLIC TOPICAL ×3 (05:13→21:28)
[2019-05-16] MEDS: Menthol/Lanolin/Calamine/Znox 113 GM Tube 1 APPLIC TOPICAL ×3 (05:13→21:28)
[2019-05-16] MEDS: Acetaminophen 650 MG/20 ML UDC NG ×4 (05:14→23:27)
[2019-05-16 05:21] LABS: Bedside Glucose 118 mg/dL (70-110)
--- NOTE | 2019-05-16 05:55 | PN_ITS ---
Subjective: The patient was seen and examined at the bedside this morning. Events from the last 24 hours have been reviewed. Yesterday afternoon, the patient developed tachypnea and increased work of breathing while on the ventilator. There was initially a concern for possible cuff leak. However, the patient was still receiving full support without any loss in return volumes. A repeat plain film chest x-ray revealed no significant interval changes from prior chest imaging. The endotracheal tube appeared to be in appropriate position. The patient was noted to be febrile at that time. She did receive a one-time dose of IV Haldol for sedation purposes. The patient subsequently developed a rising fever which peaked at 105 ?F[address] A stat CT head was subsequently obtained which revealed periventricular white matter ischemic changes with no evidence for acute bleed. Given that the patient had received Haldol x1 dose and then went on to develop a high-grade fever, there was concern for neuroleptic malignant syndrome. The patient did go on to receive dantrolene. Her fever then improved. She is currently afebrile. The patient did have to be started on levophed for approximately 2 to 3 hours overnight. In addition to the aforementioned, the patient's platelet count fell once again overnight to 15,000. Creatinine remains elevated at 2.47 with a BUN of 130. White count has increased this morning to 28,000. She is currently documented to be overall net +6.8 L for the admission. The patient does not currently follow simple commands. Of note, the patient's blood cultures this morning resulted positive for Pasteurella multocida. Sputum cultures now positive for Serratia marcescens, Enterobacter cloacae and Staphylococcus. Objective: The patient's most recent lab work, culture data and imaging studies have all been personally reviewed. Initial CT head revealed no acute intracranial process. CT abdomen/pelvis revealed colonic diverticulosis without obstruction along with incidental bilateral lower lung infiltrates. Surface echocardiogram revealed normal LV size and function with an ejection fraction of 50%. Initial blood cultures dated May 13 were positive for Sphingomonas Paucimobilis. Sputum Gram stain was positive for the presence of a gram-negative joan and staphylococcal species. General: - - Remains intubated and mechanically ventilated off sedation. HEENT: Atraumatic, PERRLA, Normocephalic Oral: Dry Mucosa, - - Dried bloody secretions noted in oropharynx. Endotracheal and OG tubes remain in place. Neck: Supple, No Nodes, Trachea Midline, - - Stable central venous catheter in place. Large neck circumference with redundant soft tissue. Lungs: No rhonchi, No wheeze, No rales, Diminished, Tachypneic Cardiovascular: Normal S1, Normal S2, Irregular Rate, Tachycardic Abdomen: Soft, Non Tender, Hypoactive Bowel Sounds, Obese Extremities: No clubbing, No cyanosis, Diminished Peripheral Pulses, - - Cyanotic appearing digits with mottling of skin. Skin: Ulcer/ Wound - Located in the region of the lateral malleolus. Musculoskeletal: No Muscle Wasting Lymphatic: No Cervical, Supraclavicular, or Inguinal Adenopathy Neurological: - - The patient does demonstrate facial grimacing to sternal rub. She does not currently follow simple commands. Although she does attempt to move her extremities, it is unclear if this is intentional. Vital Signs Temp Pulse Resp BP Pulse Ox 98.6 F 105 H 36 H 130/76 H 90 05/16/19 05:00 05/16/19 05:00 05/16/19 05:00 05/16/19 05:00 05/16/19 05:00 Oxygen Delivery Method Mechanical Ventilator Weight: 298 lb 15.149 oz Body Mass Index (BMI) 45.2 Finger Stick Blood Glucose 180 Intake and Output for Last 24 Hours 05/14/19 05/15/19 05/16/19 23:59 23:59 23:59 Intake Total 2357.35 / 2462.35 3005.00 / 3033.54 80.00 / 80.00 Output Total 1350 / 1350 1250 / 1500 250 / 250 Balance 1007.35 / 1112.35 1755.00 / 1533.54 -170.00 / -170.00 Labs (Last 48 Hours) 05/13/19 05/13/19 05/14/19 12:15 17:55 04:45 WBC 14.5 H RBC 4.34 Hgb 13.3 Hct 40.7 MCV 93.8 MCH 30.6 MCHC 32.7 RDW Std Deviation 57.0 H RDW Coeff of Pierre 16.3 H Plt Count 20 L* MPV TNP Immature Gran % (Auto) 2.100 H Neut % (Auto) 87.5 H Lymph % (Auto) 3.9 L [place] % (Auto) 5.4 Eos % (Auto) 1.0 Baso % (Auto) 0.1 Absolute Neuts (auto) 12.7 H Absolute Lymphs (auto) 0.56 L Nucleated RBC % 0.3 Differential Comment Diff Path Review Reviewed Reviewed Platelet Estimate Plt Morphology Comment Crenated Cell 1+ Haptoglobin 160 Specimen Type Sample Site pH Bicarbonate Actual POC Total CO2 Base Excess O2 Saturation O2 % ABG pCO2 ABG pO2 Gennaro Test VBG pH VBG pO2 VBG O2 Sat (Calc) VBG O2 Content VBG Base Excess POC Mix VBG pCO2 Pt Tmp Respiration Rate O2 Delivery Device Vent Mode Tidal Volume POC PEEP Blood Gas Notified Whom Blood Gas Notified Time Sodium Potassium Chloride Carbon Dioxide Anion Gap BUN Creatinine Estim Creat Clear Calc Est GFR (MDRD) Af Amer Est GFR (MDRD) Non-Af BUN/Creatinine Ratio Glucose Lactic Acid Calcium Phosphorus Magnesium Total Bilirubin AST ALT Alkaline Phosphatase Total Creatine Kinase Total Protein Albumin Globulin Albumin/Globulin Ratio Ur Random Sodium Urine Creatinine Random Vancomycin Hepatitis A IgM Ab Hep Bs Antigen Hep B Core IgM Ab Hepatitis Interpret HIV 1&2 Antibody POC Glucose 05/14/19 05/14/19 05/14/19 08:00 09:30 11:23 WBC RBC Hgb Hct MCV MCH MCHC RDW Std Deviation RDW Coeff of Pierre Plt Count MPV Immature Gran % (Auto) Neut % (Auto) Lymph % (Auto) [place] % (Auto) Eos % (Auto) Baso % (Auto) Absolute Neuts (auto) Absolute Lymphs (auto) Nucleated RBC % Differential Comment Diff Path Review Platelet Estimate Plt Morphology Comment Crenated Cell Haptoglobin Specimen Type Sample Site pH Bicarbonate Actual POC Total CO2 Base Excess O2 Saturation O2 % ABG pCO2 ABG pO2 Gennaro Test VBG pH VBG pO2 VBG O2 Sat (Calc) VBG O2 Content VBG Base Excess POC Mix VBG pCO2 Pt Tmp Respiration Rate O2 Delivery Device Vent Mode Tidal Volume POC PEEP Blood Gas Notified Whom Blood Gas Notified Time Sodium 142 Potassium 3.7 Chloride 112 H Carbon Dioxide 19.0 L Anion Gap 11 BUN 124 H* Creatinine 2.78 H Estim Creat Clear Calc 19.64 Est GFR (MDRD) Af Amer 22 L Est GFR (MDRD) Non-Af 18 L BUN/Creatinine Ratio 44.6 H Glucose 206 H Lactic Acid Calcium 7.5 L Phosphorus Magnesium Total Bilirubin AST ALT Alkaline Phosphatase Total Creatine Kinase 2500 H Total Protein Albumin Globulin Albumin/Globulin Ratio Ur Random Sodium Urine Creatinine Random Vancomycin Hepatitis A IgM Ab Negative Hep Bs Antigen Negative Hep B Core IgM Ab Negative Hepatitis Interpret Pending HIV 1&2 Antibody POC Glucose 160 H 05/14/19 05/14/19 05/14/19 11:45 11:45 16:40 WBC RBC Hgb Hct MCV MCH MCHC RDW Std Deviation RDW Coeff of Pierre Plt Count MPV Immature Gran % (Auto) Neut % (Auto) Lymph % (Auto) [place] % (Auto) Eos % (Auto) Baso % (Auto) Absolute Neuts (auto) Absolute Lymphs (auto) Nucleated RBC % Differential Comment Diff Path Review Platelet Estimate Plt Morphology Comment Crenated Cell Haptoglobin Specimen Type Sample Site pH Bicarbonate Actual POC Total CO2 Base Excess O2 Saturation O2 % ABG pCO2 ABG pO2 Gennaro Test VBG pH VBG pO2 VBG O2 Sat (Calc) VBG O2 Content VBG Base Excess POC Mix VBG pCO2 Pt Tmp Respiration Rate O2 Delivery Device Vent Mode Tidal Volume POC PEEP Blood Gas Notified Whom Blood Gas Notified Time Sodium Potassium Chloride Carbon Dioxide Anion Gap BUN Creatinine Estim Creat Clear Calc Est GFR (MDRD) Af Amer Est GFR (MDRD) Non-Af BUN/Creatinine Ratio Glucose Lactic Acid Calcium Phosphorus Magnesium Total Bilirubin AST ALT Alkaline Phosphatase Total Creatine Kinase Total Protein Albumin Globulin Albumin/Globulin Ratio Ur Random Sodium 16 Urine Creatinine 55.20 Random Vancomycin Hepatitis A IgM Ab Hep Bs Antigen Hep B Core IgM Ab Hepatitis Interpret HIV 1&2 Antibody POC Glucose 130 H 05/14/19 05/14/19 05/14/19 17:20 23:22 Unknown WBC 14.7 H RBC 4.25 Hgb 13.1 Hct 38.6 MCV 90.8 MCH 30.8 MCHC 33.9 RDW Std Deviation 54.2 H RDW Coeff of Pierre 16.3 H Plt Count 17 L* MPV TNP Immature Gran % (Auto) Neut % (Auto) Lymph % (Auto) [place] % (Auto) Eos % (Auto) Baso % (Auto) Absolute Neuts (auto) Absolute Lymphs (auto) Nucleated RBC % Differential Comment Diff Path Review Reviewed Platelet Estimate Plt Morphology Comment Crenated Cell Haptoglobin Specimen Type Sample Site pH Bicarbonate Actual POC Total CO2 Base Excess O2 Saturation O2 % ABG pCO2 ABG pO2 Gennaro Test VBG pH VBG pO2 VBG O2 Sat (Calc) VBG O2 Content VBG Base Excess POC Mix VBG pCO2 Pt Tmp Respiration Rate O2 Delivery Device Vent Mode Tidal Volume POC PEEP Blood Gas Notified Whom Blood Gas Notified Time Sodium Potassium Chloride Carbon Dioxide Anion Gap BUN Creatinine Estim Creat Clear Calc Est GFR (MDRD) Af Amer Est GFR (MDRD) Non-Af BUN/Creatinine Ratio Glucose Lactic Acid Calcium Phosphorus Magnesium Total Bilirubin AST ALT Alkaline Phosphatase Total Creatine Kinase Total Protein Albumin Globulin Albumin/Globulin Ratio Ur Random Sodium Urine Creatinine Random Vancomycin Hepatitis A IgM Ab Hep Bs Antigen Hep B Core IgM Ab Hepatitis Interpret HIV 1&2 Antibody Non-Reactive POC Glucose 222 H 05/15/19 05/15/19 05/15/19 05:15 05:15 05:15 WBC 16.8 H RBC 4.12 L Hgb 12.6 Hct 37.2 MCV 90.3 MCH 30.6 MCHC 33.9 RDW Std Deviation 53.7 H RDW Coeff of Pierre 16.2 H Plt Count 30 L* MPV Immature Gran % (Auto) 4.800 H Neut % (Auto) 80.4 H Lymph % (Auto) 5.7 L [place] % (Auto) 8.6 Eos % (Auto) 0.1 Baso % (Auto) 0.4 Absolute Neuts (auto) 13.5 H Absolute Lymphs (auto) 0.95 Nucleated RBC % 0 Differential Comment SCANNED Diff Path Review Reviewed Platelet Estimate MKD DEC Plt Morphology Comment LARGE Crenated Cell Haptoglobin Specimen Type Sample Site pH Bicarbonate Actual POC Total CO2 Base Excess O2 Saturation O2 % ABG pCO2 ABG pO2 Gennaro Test VBG pH VBG pO2 VBG O2 Sat (Calc) VBG O2 Content VBG Base Excess POC Mix VBG pCO2 Pt Tmp Respiration Rate O2 Delivery Device Vent Mode Tidal Volume POC PEEP Blood Gas Notified Whom Blood Gas Notified Time Sodium 145 Potassium 3.5 Chloride 117 H Carbon Dioxide 19.0 L Anion Gap 9 BUN 124 H* Creatinine 2.42 H Estim Creat Clear Calc 22.56 Est GFR (MDRD) Af Amer 26 L Est GFR (MDRD) Non-Af 22 L BUN/Creatinine Ratio 51.2 H Glucose 193 H Lactic Acid Calcium 7.7 L Phosphorus 2.7 Magnesium 2.3 Total Bilirubin 3.10 H AST 237 H ALT 112 H Alkaline Phosphatase 234 H Total Creatine Kinase 1557 H Total Protein 5.6 L Albumin 1.8 L Globulin 3.8 Albumin/Globulin Ratio 0.5 L Ur Random Sodium Urine Creatinine Random Vancomycin 11.7 Hepatitis A IgM Ab Hep Bs Antigen Hep B Core IgM Ab Hepatitis Interpret HIV 1&2 Antibody POC Glucose 05/15/19 05/15/19 05/15/19 05:46 11:35 16:37 WBC RBC Hgb Hct MCV MCH MCHC RDW Std Deviation RDW Coeff of Pierre Plt Count MPV Immature Gran % (Auto) Neut % (Auto) Lymph % (Auto) [place] % (Auto) Eos % (Auto) Baso % (Auto) Absolute Neuts (auto) Absolute Lymphs (auto) Nucleated RBC % Differential Comment Diff Path Review Platelet Estimate Plt Morphology Comment Crenated Cell Haptoglobin Specimen Type VANESSA Sample Site pH Bicarbonate Actual POC Total CO2 Base Excess O2 Saturation O2 % 100 ABG pCO2 ABG pO2 Gennaro Test VBG pH 7.29 L VBG pO2 32 VBG O2 Sat (Calc) 56 VBG O2 Content 17 L VBG Base Excess -11 L POC Mix VBG pCO2 Pt Tmp 32.8 L Respiration Rate 12 O2 Delivery Device Vent Vent Mode Tidal Volume 450 POC PEEP 5 Blood Gas Notified Whom HOSP Blood Gas Notified Time 1636 Sodium Potassium Chloride Carbon Dioxide Anion Gap BUN Creatinine Estim Creat Clear Calc Est GFR (MDRD) Af Amer Est GFR (MDRD) Non-Af BUN/Creatinine Ratio Glucose Lactic Acid Calcium Phosphorus Magnesium Total Bilirubin AST ALT Alkaline Phosphatase Total Creatine Kinase Total Protein Albumin Globulin Albumin/Globulin Ratio Ur Random Sodium Urine Creatinine Random Vancomycin Hepatitis A IgM Ab Hep Bs Antigen Hep B Core IgM Ab Hepatitis Interpret HIV 1&2 Antibody POC Glucose 180 H 131 H 05/15/19 05/15/19 05/15/19 17:20 17:20 17:20 WBC 12.5 H RBC 4.29 Hgb 13.0 Hct 39.4 MCV 91.8 MCH 30.3 MCHC 33.0 RDW Std Deviation 56.7 H RDW Coeff of Pierre 16.8 H Plt Count 15 L* MPV Immature Gran % (Auto) Neut % (Auto) Lymph % (Auto) [place] % (Auto) Eos % (Auto) Baso % (Auto) Absolute Neuts (auto) Absolute Lymphs (auto) Nucleated RBC % Differential Comment Diff Path Review May foll Platelet Estimate Plt Morphology Comment Crenated Cell Haptoglobin Specimen Type Sample Site pH Bicarbonate Actual POC Total CO2 Base Excess O2 Saturation O2 % ABG pCO2 ABG pO2 Gennaro Test VBG pH VBG pO2 VBG O2 Sat (Calc) VBG O2 Content VBG Base Excess POC Mix VBG pCO2 Pt Tmp Respiration Rate O2 Delivery Device Vent Mode Tidal Volume POC PEEP Blood Gas Notified Whom Blood Gas Notified Time Sodium 147 H Potassium 3.7 Chloride 120 H Carbon Dioxide 17.0 L Anion Gap 10 BUN 122 H* Creatinine 2.47 H Estim Creat Clear Calc 22.11 Est GFR (MDRD) Af Amer 25 L Est GFR (MDRD) Non-Af 21 L BUN/Creatinine Ratio 49.4 H Glucose 117 H Lactic Acid 2.8 H Calcium 7.8 L Phosphorus Magnesium Total Bilirubin AST ALT Alkaline Phosphatase Total Creatine Kinase Total Protein Albumin Globulin Albumin/Globulin Ratio Ur Random Sodium Urine Creatinine Random Vancomycin Hepatitis A IgM Ab Hep Bs Antigen Hep B Core IgM Ab Hepatitis Interpret HIV 1&2 Antibody POC Glucose 05/15/19 05/15/19 05/15/19 17:20 17:54 21:40 WBC RBC Hgb Hct MCV MCH MCHC RDW Std Deviation RDW Coeff of Pierre Plt Count MPV Immature Gran % (Auto) Neut % (Auto) Lymph % (Auto) [place] % (Auto) Eos % (Auto) Baso % (Auto) Absolute Neuts (auto) Absolute Lymphs (auto) Nucleated RBC % Differential Comment Diff Path Review Platelet Estimate Plt Morphology Comment Crenated Cell Haptoglobin Specimen Type ART Sample Site R Radial pH 7.46 H Bicarbonate Actual 15.4 L POC Total CO2 16 Base Excess -8 L O2 Saturation 100 H O2 % 100 ABG pCO2 21.7 L ABG pO2 227 H Gennaro Test POS VBG pH VBG pO2 VBG O2 Sat (Calc) VBG O2 Content VBG Base Excess POC Mix VBG pCO2 Pt Tmp Respiration Rate 12 O2 Delivery Device Vent Vent Mode A-C Tidal Volume 450 POC PEEP 5 Blood Gas Notified Whom [facility] Blood Gas Notified Time 1745 Sodium Potassium Chloride Carbon Dioxide Anion Gap BUN Creatinine Estim Creat Clear Calc Est GFR (MDRD) Af Amer Est GFR (MDRD) Non-Af BUN/Creatinine Ratio Glucose Lactic Acid 2.5 H Calcium Phosphorus Magnesium Total Bilirubin AST ALT Alkaline Phosphatase Total Creatine Kinase 1253 H Total Protein Albumin Globulin Albumin/Globulin Ratio Ur Random Sodium Urine Creatinine Random Vancomycin Hepatitis A IgM Ab Hep Bs Antigen Hep B Core IgM Ab Hepatitis Interpret HIV 1&2 Antibody POC Glucose 05/15/19 05/15/19 05/16/19 23:01 23:05 04:25 WBC RBC Hgb Hct MCV MCH MCHC RDW Std Deviation RDW Coeff of Pierre Plt Count MPV Immature Gran % (Auto) Neut % (Auto) Lymph % (Auto) [place] % (Auto) Eos % (Auto) Baso % (Auto) Absolute Neuts (auto) Absolute Lymphs (auto) Nucleated RBC % Differential Comment Diff Path Review Platelet Estimate Plt Morphology Comment Crenated Cell Haptoglobin Specimen Type Sample Site pH Bicarbonate Actual POC Total CO2 Base Excess O2 Saturation O2 % ABG pCO2 ABG pO2 Gennaro Test VBG pH VBG pO2 VBG O2 Sat (Calc) VBG O2 Content VBG Base Excess POC Mix VBG pCO2 Pt Tmp Respiration Rate O2 Delivery Device Vent Mode Tidal Volume POC PEEP Blood Gas Notified Whom Blood Gas Notified Time Sodium 145 Potassium 4.4 Chloride 116 H Carbon Dioxide 17.0 L Anion Gap BUN 130 H* Creatinine 2.47 H Estim Creat Clear Calc 22.11 Est GFR (MDRD) Af Amer 25 L Est GFR (MDRD) Non-Af 21 L BUN/Creatinine Ratio 52.6 H Glucose 186 H 213 H Lactic Acid Calcium 7.3 L Phosphorus 3.8 Magnesium Total Bilirubin AST ALT Alkaline Phosphatase Total Creatine Kinase Total Protein Albumin 1.5 L Globulin Albumin/Globulin Ratio Ur Random Sodium Urine Creatinine Random Vancomycin Hepatitis A IgM Ab Hep Bs Antigen Hep B Core IgM Ab Hepatitis Interpret HIV 1&2 Antibody POC Glucose 25 L* 05/16/19 05:14 WBC RBC Hgb Hct MCV MCH MCHC RDW Std Deviation RDW Coeff of Pierre Plt Count MPV Immature Gran % (Auto) Neut % (Auto) Lymph % (Auto) [place] % (Auto) Eos % (Auto) Baso % (Auto) Absolute Neuts (auto) Absolute Lymphs (auto) Nucleated RBC % Differential Comment Diff Path Review Platelet Estimate Plt Morphology Comment Crenated Cell Haptoglobin Specimen Type Sample Site pH Bicarbonate Actual POC Total CO2 Base Excess O2 Saturation O2 % ABG pCO2 ABG pO2 Gennaro Test VBG pH VBG pO2 VBG O2 Sat (Calc) VBG O2 Content VBG Base Excess POC Mix VBG pCO2 Pt Tmp Respiration Rate O2 Delivery Device Vent Mode Tidal Volume POC PEEP Blood Gas Notified Whom Blood Gas Notified Time Sodium Potassium Chloride Carbon Dioxide Anion Gap BUN Creatinine Estim Creat Clear Calc Est GFR (MDRD) Af Amer Est GFR (MDRD) Non-Af BUN/Creatinine Ratio Glucose Lactic Acid Calcium Phosphorus Magnesium Total Bilirubin AST ALT Alkaline Phosphatase Total Creatine Kinase Total Protein Albumin Globulin Albumin/Globulin Ratio Ur Random Sodium Urine Creatinine Random Vancomycin Hepatitis A IgM Ab Hep Bs Antigen Hep B Core IgM Ab Hepatitis Interpret HIV 1&2 Antibody POC Glucose 118 H Microbiology 05/13/19 22:55 Sputum, Induced/Lukens Gram Stain - Final 05/13/19 22:55 Sputum, Induced/Lukens Respiratory Culture - Preliminary Gram negative joan GNR lactose solutions consultant Staphylococcus species 05/13/19 10:49 Urine Catheter - Catheter Urine Culture - Final Culture exhibits no growth. 05/13/19 19:40 Blood Culture (Wb) - Left Forearm Blood Culture - Preliminary 05/13/19 11:54 Blood Culture (Wb) - Left Hand Blood Culture - Final Gram negative joan 05/13/19 18:15 Blood Culture (Wb) - Central Line Blood Culture - Preliminary 05/13/19 11:40 Blood Culture (Wb) - Anticubital Left Blood Culture - Preliminary Sphingomonas paucimobilis Clinical Impression(s) from Imaging Studies Chest X-Ray 05/13/19 09:57 IMPRESSION: The tip of the endotracheal tube is at 3.7 cm proximal to the morena. Electronically Signed: Jose Longo, at 10:51 EDT , Service support , Brain CT 05/13/19 09:58 IMPRESSION: Chronic involutional changes of the brain. Electronically Signed: Jose Longo, at 11:18 EDT , Service support , Chest X-Ray 05/13/19 09:59 IMPRESSION: The tip of the endotracheal tube is at the origin of the right mainstem bronchus. It should be withdrawn approximately 3 cm. Electronically Signed: Jose Longo, at 10:51 EDT , Service support , Chest X-Ray 05/13/19 16:45 IMPRESSION: Central catheter extends to the cavoatrial junction. No pneumothorax. Electronically Signed: Toi Saenz MD at 17:32 EDT , Service support , Abdomen CT 05/13/19 19:47 IMPRESSION: Infrarenal abdominal aortic aneurysm. No rupture or periaortic collection. Colonic diverticulosis. No obstruction. Bilateral lower lung infiltrates. Electronically Signed: Toi Saenz MD at 23:09 EDT , Service support , Chest X-Ray 05/14/19 05:55 IMPRESSION: Left mid lower lung field atelectasis versus pneumonia with mild left effusion. Mild right perihilar atelectasis. Overall exam is stable or slightly worsened on the left compared to recent study. Lines and tubes as described above. Electronically Signed: Sara Jesus MD at 4:07 EDT , Service support , Chest X-Ray 05/15/19 14:30 IMPRESSION: Low lung volumes. Grossly clear lungs. Electronically Signed: Chriss Martinez at 15:33 EDT Tel , Service support , Brain CT 05/15/19 16:55 IMPRESSION: Mild cortical atrophy and periventricular white matter ischemic changes. No evidence for acute bleed. If concern for acute infarct MRI recommended Electronically Signed: Reynaldo Hall MD at 17:19 EDT , Service support , Medical Necessity - Tobacco Use Smoking Status: Former smoker - she quit in 2018 but prior to that she smoked 1- 1/2 packs of cigarettes daily for at least 40 years. Tobacco Use: Cigarettes Assessment/Plan All Active Problems (Last Reviewed 05/13/19 @ 20:07 by Vivi Sementi, DO) Acute respiratory failure with hypoxia (Acute) Atrial fibrillation with rapid ventricular response (Acute) Thrombocytopenia (Acute) Dehydration (Acute) Septic shock (Acute) Acute febrile illness (Acute) Rhabdomyolysis (Acute) ARF (acute renal failure) (Acute) Uremic encephalopathy (Acute) Abnormal LFTs (Acute) Metabolic acidosis (Acute) Lactic acidosis (Acute) Cat bite involving extremity (Resolved) Cellulitis (Resolved) Dysphagia (Resolved) Ulcer of right lower leg (Resolved) RECOMMENDATIONS: 1. Obtain repeat plain film chest x-ray this morning. 2. Avoid antipsychotics in the future over concerns for the development of neuroleptic malignant syndrome. 3. Check coagulation profile along with fibrinogen level. 4. Given worsening thrombocytopenia, will discontinue Zosyn and transition to meropenem. 5. Obtain transesophageal echocardiogram. 6. Check ammonia level. 7. Obtain hematology consultation, re: thrombocytopenia IMPRESSIONS: 1. Acute hypoxemic respiratory failure The patient was initially found down in an unresponsive state by family members. She was subsequently intubated upon arrival to the emergency department. While the patient initially did not have evidence of an infiltrate on plain film chest x-ray, she was significantly intravascularly volume depleted. The patient subsequently developed evidence of airspace disease on follow-up chest imaging. While she does have a prior smoking history, she does not have evidence of COPD on pulmonary function studies. We will plan to continue current supportive measures with invasive mechanical ventilatory support and broad-spectrum ant imicrobial coverage. We will wean FiO2 to maintain an oxygen saturation at or above 90%. 2. Polymicrobial septic shock The patient has evidence of gram-negative bacteremia and polymicrobial pneumonia. Patient will be continued on broad-spectrum antimicrobials accordingly. Infectious diseases is currently following. Given the patient's thrombocytopenia, Zosyn was discontinued and transition to meropenem. 3. Metabolic encephalopathy The exact etiology for the patient's presenting encephalopathy is unclear. It is unknown whether she may have overdosed on outpatient prescription medications. Nevertheless, her current state of encephalopathy is likely metabolic in nature as she is significantly uremic. Nephrology is currently following. Initial CT head was negative. The patient has no known history of an underlying seizure disorder. With time and avoidance of sedating medications, my hope is the patient's mentation will improve. 4. Acute on chronic kidney disease This is likely prerenal in etiology and related to significant intravascular volume depletion and subsequent ischemic ATN in the setting of hemodynamic instability. The patient is currently being volume resuscitated. Nephrology is following. We will monitor urine output. No current indication for renal replacement therapy. 5. Atrial fibrillation with rapid ventricular rate The patient did present to the emergency department with new onset atrial fibrillation with rapid ventricular rate, which may have been precipitated by the patient's current infectious state. Cardiology is following. Continue amiodarone accordingly. 6. Thrombocytopenia The patient was noted to have a normal platelet count in February 2019. While the etiology for the patient's thrombocytopenia is unclear, considerations would include DIC in the setting of sepsis versus a possible thrombotic mi croangiopathy. While the patient's platelet count initially did improve, it subsequently fell over the last 24 hours. While DIC is a consideration, her INR and PTT are normal. Fibrinogen was also normal. If the patient were to develop bleeding, this may be the consequence of platelet dysfunction in the setting of uremia. Desmopressin may be required in that particular situation. We will plan to obtain hematology consultation. 7. Elevated transaminases I suspect there is likely a component of shock liver at play here, given the patient's tenuous hemodynamics. A CT abdomen/pelvis was largely unrevealing. 8. Troponin elevation Likely secondary to demand ischemia in the setting of septic shock. 9. Super morbid obesity/history of medical noncompliance/obstructive sleep apnea/history of tobacco dependency, in remission Complicates care, management, recovery and prognosis. Resume tube feeds as ordered. Physical therapy to work with the patient. TIME: 50 minutes of critical care time, independent of procedures, was spent addressing the patient's acute hypoxemic respiratory failure, septic shock, metabolic encephalopathy, acute on chronic kidney disease, atrial fibrillation with rapid ventricular rate, thrombocytopenia, review of all data and collaboration with the care team. ([id number]) Code Visit 9xxxx: [id number] Critical care first hour
--- NOTE | 2019-05-16 06:05 | RAD_ITS ---
STUDY: X-RAY CHEST REASON FOR EXAM: Female, 64 years old. Shortness of breath. TECHNIQUE: Single AP portable view of the chest. COMPARISON: 05/15/2019. FINDINGS: The endotracheal tube has the tip approximately 2 cm above morena. The nasogastric tube has the tip below the diaphragm but not entirely included in the [id number]. There is a left-sided central line with the tip in the distal SVC/right atrial junction. Exam is limited due to patient's rotation. The lungs are underexpanded. There is mild left basilar atelectasis, cannot exclude minimal left effusion. Remainder of the lung becker are clear. There is borderline cardiomegaly. Normal mediastinum and juan a. Normal visualized pulmonary arteries. There is atherosclerotic calcification of the aortic arch with tortuosity. Normal visualized thoracic spine. Normal visualized ribs, clavicles, and shoulders. There is no demonstrated abnormality of the visualized soft tissue structures of the upper abdomen. RAD/Chest 1 View (Portable) IMPRESSION: Lines and tubes as described above. Mild left base atelectasis, cannot exclude minimal left-sided pleural effusion versus pleural thickening. Electronically Signed: Sara Jesus MD at 6:43 EDT , Service support ,
--- NOTE | 2019-05-16 06:35 | NURSING ---
Dr. Llanes attempted to place an arterial line and was unsuccessful at this time.
[2019-05-16 06:41] LABS: Absolute Lymphocyte Count 1.59 X10^3/uL (0.83-4.51); Absolute Neutrophil Count 24.5 X10^3/uL (2.0-7.7); Basophil# 0.15 X10^3/uL; Basophil% 0.5 % (0-1); Eosinophil# 0.01 X10^3/uL; Hematocrit 36.4 % (37-47); Hemoglobin 12.4 g/dL (12.0-15.0); Lymphocyte # 1.59 X10^3/ul (4.0); Lymphocyte % 5.6 % (19-41); Mean Corp Hgb Conc 34.1 g/dL (32-36); Mean Corpuscular Hgb 30.8 pg (27.0-32.0); Mean Corpuscular Volume 90.3 fL (81-99); Monocyte% 3.2 % (0-10); NRBC Flagged by Analyzer 0.2 % (0-5); Neutrophil # 24.46 X10^3/uL (2.7-7.7); Neutrophil % 86.2 % (47-70); POSITIVE COUNT YES; POSITIVE DIFFERENTIAL YES; POSITIVE MORPHOLOGY YES; RBC Distribution Width CV 16.8 % (11.6-14.6); RBC Distribution Width SD 55.6 fl (35.1-43.9); Red Blood Count 4.03 M/mm3 (4.2-5.4); White Blood Count 28.4 K/mm3 (4.4-11.0)
[2019-05-16 06:44] LABS: Differential Indicated SCAN CRITERIA MET; Platelet Count 16 K/mm3 (150-450)
[2019-05-16 06:53] LABS: Ammonia < 10.0 umol/L (11-32)
[2019-05-16 07:00] LABS: Differential Comment SCANNED
[2019-05-16 07:01] LABS: Platelet Estimate MKD DEC (ADEQ)
[2019-05-16 07:05] LABS: International Normalized Ratio 1.3; Prothrombin Time (Protime)PT. 15.6 SECONDS (11.7-14.9)
[2019-05-16 07:06] LABS: Fibrinogen 404 mg/dl (203-444); Partial Thromboplast Time 30.8 Seconds (24.1-36.2)
--- NOTE | 2019-05-16 07:51 | PCM.PN.HOSP ---
Patient Problems: Active and Suspected Problems (Last Reviewed 05/13/19 @ 20:07 by Trupti Bagley DO) Acute respiratory failure with hypoxia (Acute) Atrial fibrillation with rapid ventricular response (Acute) Thrombocytopenia (Acute) Dehydration (Acute) Septic shock (Acute) Acute febrile illness (Acute) source not yet identified Rhabdomyolysis (Acute) ARF (acute renal failure) (Acute) Uremic encephalopathy (Acute) Abnormal LFTs (Acute) Metabolic acidosis (Acute) Lactic acidosis (Acute) Subjective: Seen and examined. Patient had acute change in clinical condition and evening time yesterday. Was noted to be tachycardic, tachypneic increasing fever. Fever was noted to be 104 Fahrenheit despite cooling blanket, eyes Tylenol. There was also deterioration in mental status and was not responding or opening eyes. No seizure-like or involuntary movements were observed. Patient was given Haldol milligrams in the afternoon and dantrolene was given. Currently patient is on broad-spectrum IV antibiotic meropenem for septic shock, vasopressor norepinephrine. Patient is breathing over ventilator, tachypneic. Seems irritable with four-point soft restraint Vitals/I&O's: Vital Signs Temp Pulse Resp BP Pulse Ox 99.8 F H 110 H 34 H 119/84 H 90 05/16/19 07:00 05/16/19 07:00 05/16/19 07:00 05/16/19 07:00 05/16/19 07:00 Oxygen Delivery Method Mechanical Ventilator Weight: 298 lb 15.149 oz Body Mass Index (BMI) 45.2 Finger Stick Blood Glucose 180 Intake and Output for Last 24 Hours 05/14/19 05/15/19 05/16/19 23:59 23:59 23:59 Intake Total 2357.35 / 2462.35 3005.00 / 3033.54 80.00 / 80.00 Output Total 1350 / 1350 1250 / 1500 600 / 600 Balance 1007.35 / 1112.35 1755.00 / 1533.54 -520.00 / -520.00 General: - - Irritable, breathing over vent. Closed eyes, GCS charted 4-8 overnight. Encephalopathy HEENT: - - Patient is closed eyes. Does not cooperate with pupil exam Neck: Supple, No JVD, Negative Carotid Bruits Lungs: No wheeze, No rales, - - On vent support. Cardiovascular: Regular rate, Regular Rhythm, Normal S1, Normal S2, No murmurs Abdomen: Bowel Sounds Present, Soft, Non Tender, Non-Distended Extremities: Capillary Refill Less than 3 Seconds, Edema Skin: No rashes, No breakdown Musculoskeletal: Arthritic Changes Neurological: - - Neuro exam; cannot be examined due to irritable and altered mental status. DTR 07/25. Microbiology Past 72 Hours 05/13/19 19:40 Blood Culture (Wb) - Left Forearm Blood Culture - Final Pasteurella multocida 05/13/19 18:15 Blood Culture (Wb) - Central Line Blood Culture - Final Pasteurella multocida 05/13/19 11:40 Blood Culture (Wb) - Anticubital Left Blood Culture - Preliminary Sphingomonas paucimobilis 05/13/19 22:55 Sputum, Induced/Lukens Gram Stain - Final 05/13/19 22:55 Sputum, Induced/Lukens Respiratory Culture - Final Serratia marcescens Enterobacter cloacae complex Staphylococcus pseudintermediu 05/13/19 10:49 Urine Catheter - Catheter Urine Culture - Final Culture exhibits no growth. 05/13/19 11:54 Blood Culture (Wb) - Left Hand Blood Culture - Final Gram negative joan Laboratory Results 05/13/19 17:55: Haptoglobin 160 05/14/19 08:00: Hepatitis A IgM Ab Negative, Hep Bs Antigen Negative, Hep B Core IgM Ab Negative 05/14/19 17:20: Diff Path Review Reviewed 05/15/19 05:15: Diff Path Review Reviewed 05/15/19 11:35: POC Glucose 131 H 05/15/19 16:37: Specimen Type VANESSA, O2 % 100, VBG pH 7.29 L, VBG pO2 32, VBG O2 Sat (Calc) 56, VBG O2 Content 17 L, VBG Base Excess -11 L, POC Mix VBG pCO2 Pt Tmp 32.8 L, Respiration Rate 12, O2 Delivery Device Vent, Tidal Volume 450, POC PEEP 5, Blood Gas Notified Whom TELLO CHAN, Blood Gas Notified Time 1636 05/15/19 17:20: Sodium 147 H, Potassium 3.7, Chloride 120 H, Carbon Dioxide 17.0 L, Anion Gap 10, BUN 122 H*, Creatinine 2.47 H, Estim Creat Clear Calc 22.11, Est GFR (MDRD) Af Amer 25 L, Est GFR (MDRD) Non-Af 21 L, BUN/Creatinine Ratio 49.4 H, Glucose 117 H, Calcium 7.8 L 05/15/19 17:20: Lactic Acid 2.8 H 05/15/19 17:20: WBC 12.5 H, RBC 4.29, Hgb 13.0, Hct 39.4, MCV 91.8, MCH 30.3, MCHC 33.0, RDW Std Deviation 56.7 H, RDW Coeff of Pierre 16.8 H, Plt Count 15 L*, Differential Comment , Diff Path Review November05/15/19 17:20: Total Creatine Kinase 1253 H 05/15/19 17:54: Specimen Type ART, Sample Site R Radial, pH 7.46 H, Bicarbonate Actual 15.4 L, POC Total CO2 16, Base Excess -8 L, O2 Saturation 100 H, O2 % 100, ABG pCO2 21.7 L, ABG pO2 227 H, Gennaro Test POS, Respiration Rate 12, O2 Delivery Device Vent, Vent Mode A-C, Tidal Volume 450, POC PEEP 5, Blood Gas Notified Whom TELLO CHAN, Blood Gas Notified Time 1745 05/15/19 21:40: Lactic Acid 2.5 H 05/15/19 23:01: POC Glucose 25 L* 05/15/19 23:05: Glucose 186 H 05/16/19 04:25: Sodium 145, Potassium 4.4, Chloride 116 H, Carbon Dioxide 17.0 L, BUN 130 H*, Creatinine 2.47 H, Estim Creat Clear Calc 22.11, Est GFR (MDRD) Af Amer 25 L, Est GFR (MDRD) Non-Af 21 L, BUN/Creatinine Ratio 52.6 H, Glucose 213 H, Calcium 7.3 L, Phosphorus 3.8, Albumin 1.5 L 05/16/19 05:14: POC Glucose 118 H 05/16/19 06:25: Ammonia < 10.0 L 05/16/19 06:30: WBC 28.4 H, RBC 4.03 L, Hgb 12.4, Hct 36.4 L, MCV 90.3, MCH 30.8, MCHC 34.1, RDW Std Deviation 55.6 H, RDW Coeff of Pierre 16.8 H, Plt Count 16 L*, Immature Gran % (Auto) 4.500 H, Neut % (Auto) 86.2 H, Lymph % (Auto) 5.6 L, [place] % (Auto) 3.2, Eos % (Auto) 0.0, Baso % (Auto) 0.5, Absolute Neuts (auto) 24.5 H, Absolute Lymphs (auto) 1.59, Nucleated RBC % 0.2, Differential Comment SCANNED, Diff Path Review May foll, Platelet Estimate MKD 05/16/19 06:40: PT 15.6 H, INR 1.3, APTT 30.8, Fibrinogen 404 Current Medications Acetaminophen (Tylenol Liquid) 650 mg NG Q6 [facility] Last Admin: 05/16/19 05:14 Dose: 650 mg Documented by: Amiodarone HCl (Cordarone) 200 mg PO BID [facility] Last Admin: 05/15/19 21:43 Dose: 200 mg Documented by: Calamine/Phenol (Calmoseptine Ointment) 1 applic TOPICAL TID [facility]; Protocol Last Admin: 05/16/19 05:13 Dose: 1 applicatio Documented by: Chlorhexidine Gluconate () 1 each TOPICAL DAILY [facility] Last Admin: 05/16/19 05:13 Dose: 1 each Documented by: Chlorhexidine Gluconate () 15 ml PO BID [facility] Last Admin: 05/15/19 21:49 Dose: 15 ml Documented by: Dextrose (D50w Syringe) 0 gm IV X1 PRN; Protocol PRN Reason: Hypoglycemia Last Admin: 05/13/19 23:56 Dose: 12.5 gm Documented by: Famotidine (Pepcid) 20 mg PO DAILY [facility] Last Admin: 05/15/19 09:45 Dose: 20 mg Documented by: Glucagon () 1 mg IM .X1 PRN PRN Reason: Hypoglycemia Vancomycin IV Pharmacy to Dose (1 ea/ Sodium Chloride) 500 mls @ 250 mls/hr IV PRN PRN; Protocol PRN Reason: Rx to Dose Enteral Nutritional Formula (Vital Af 1.2 Cesar Liquid) 1,000 mls @ 20 mls/hr GT .Q48H [facility] Last Admin: 05/14/19 10:21 Dose: 20 mls/hr Documented by: Vancomycin HCl 1,250 mg/ (Sodium Chloride) 275 mls @ 167 mls/hr IV Q24H [facility] Last Infusion: 05/15/19 11:37 Dose: Infused Documented by: Meropenem 1 gm/ Sodium (Chloride) 120 mls @ 33 mls/hr IV Q12 [facility] Insulin Human Lispro (Humalog Kwikpen (Bkc)) 0 unit SC Q6 [facility]; Protocol Last Admin: 05/16/19 05:15 Dose: Not Given Documented by: Nystatin (Mycostatin Powder) 1 applic TOPICAL TID [facility]; Protocol Last Admin: 05/16/19 05:13 Dose: 1 applicatio Documented by: Sodium Chloride () 10 - 40 ml IV UD PRN PRN Reason: Multilumen/Santos Flush Last Admin: 05/15/19 21:48 Dose: 30 ml Documented by: Sodium Chloride (0.9% Nacl (Sterile) Posiflush) 10 - 40 ml IV UD PRN PRN Reason: Port access or dressing change Sodium Chloride () 10 - 40 ml IV UD PRN PRN Reason: SALINE FLUSH STROKE Vital Signs/Narrative: Vital Signs Temp Pulse Resp BP Pulse Ox 05/16/19 07:00 99.8 F H 110 H 34 H 119/84 H 90 05/16/19 06:50 118 H 32 H 98 05/16/19 06:00 99.1 F 109 H 40 H 115/64 90 05/16/19 05:00 98.6 F 105 H 36 H 130/76 H 90 05/16/19 04:00 98.5 F 97 25 H 110/47 L 89 Medical Necessity - Tobacco Use Smoking Status: Former smoker - she quit in 2018 but prior to that she smoked 1-1/2 packs of cigarettes daily for at least 40 years. Tobacco Use: Cigarettes Assessment/Plan All Active Problems (Last Reviewed 05/13/19 @ 20:07 by Trupti Bagley DO) Acute respiratory failure with hypoxia (Acute) Atrial fibrillation with rapid ventricular response (Acute) Thrombocytopenia (Acute) Dehydration (Acute) Septic shock (Acute) Acute febrile illness (Acute) Rhabdomyolysis (Acute) ARF (acute renal failure) (Acute) Uremic encephalopathy (Acute) Abnormal LFTs (Acute) Metabolic acidosis (Acute) Lactic acidosis (Acute) Cat bite involving extremity (Resolved) Cellulitis (Resolved) Dysphagia (Resolved) Ulcer of right lower leg (Resolved) 64-year-old female was admitted with found unresponsive at home by her boyfriend. She was found to be thrombocytopenic, acute kidney injury and septic shock. She was intubated in the ER. On vasopressor. On vent management. On broad-spectrum antibiotic 1. septic shock secondary to suspected aspiration pneumonia with blood culture positive of shingomonas paucimobilis, blood cultures x2 is positive of Pasteurella multocida and respiratory culture positive of Enterobacter, staph and Serratia. Urine culture negative. She is back on vasopressor and norepinephrine On IV meropenem. ID on board 2. acute hypoxic respiratory failure - intubated and mechanically ventilated. not ready for SBT due to mental status/uremia 3. High-grade fever, encephalopathy, high BUN and severe thrombocytopenia elevated transaminases from combination of septic shock and uremic encephalopathy: U tox was positive of methamphetamine. Patient also has a history of opioid use and benzodiazepine. Exact etiology unclear. Liver on the imaging CT abdomen looks normal and is reported normal. ALT and AST shows improvement, ALT 78 and AST 127, alkaline phosphatase 252 today. Total bili 2.5 which is improved. Overall elevated liver enzymes and total bilirubin seems more from septic source rather than intrinsic liver disease. Ammonia is also normal. Does not seem TTP/HUS spectrum as it does not fit in the criteria. H&H normal 12.4/36.4. Haptoglobin normal. Hepatitis profile A and B negative and HIV negative. Hepatitis C is pending. Atrial fibrillation with rapid ventricular response - HR is much better controlled with amiodarone. Transitioned to PO amiodarone on 05/14. 4. Non-oliguric Acute renal failure-etiology unknown, more likely than not due to sepsis and dehydration. [facility] is on board. Seen by Dr. Hanley. The fractional excretion of sodium is less than 1% which is consistent with prerenal azotemia. Creatinine is improving with hydration but the BUN remains high. We will continue IV fluids. Patient BUN was normal on February 2019. Urine output 1250 mL, today 600 mL after 12 midnight, dark yellow. 5. Severe thrombocytopenia- likely due to GM negative sepsis and also uremia. Patient platelet count has been steadily decreasing from March 10-50 1- 49 on February 2019. And then admitted with 20,000 this time and is steadily further decline 16,000. Patient had 2 units of platelet transfusion but did not show any response. 6. 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 7. Rhabdomyolysis-continue IV fluids. CK 198 on 05/13 8. hx of anxiety/depression and chronic benzo and narcotic dependence - May need to deal with withdraw when she is off the Fentanyl. The med list from admission does not include any benzo's....not sure how accurate the list is. she last got Xtampsa and Oxycodone from Dr. [place] in February 9. History of a bioprosthetic aortic valve replacement 10. Hypertension, hyperlipidemia, obstructive sleep apnea (not compliant with PAP therapy), GERD, chronic back pain, morbid obesity complicate care, management and prognosis ... she is historically not compliant with physician follow up. Poor prognosis. Code Visit Inpatient E&M: 22758 Subs Hosp L3
--- NOTE | 2019-05-16 08:00 | ECHOTEE_ITS ---
Reason For Study: R/O Endocarditis Medication NILDA probe 6VT-D (SN [id number]) passed with minimal difficulty. No complications were noted. Versed 2 mg given slow IVP. Fentanyl 25 mcg given slow IVP. Left Ventricle Normal LV size. Left ventricular systolic function is normal. The estimated ejection fraction is 55 %. No regional wall motion abnormalities noted. Right Ventricle Normal RV size. Normal systolic function. Atria Normal atrial septum. The left atrium is mildly enlarged. Normal right atrium. Prominent eustachian valve. Probable chiari network. Mitral Valve Normal mitral valve. Mild (1+) eccentric mitral valve insufficiency. Tricuspid Valve Normal tricuspid valve. Aortic Valve Stable appearing bioprosthetic aortic valve apparatus. Pulmonic Valve Normal pulmonic valve. Vessels Normal aortic root. Normal arch. The pulmonary artery is normal size. Pericardium No pericardial effusion. No obvious vegetation seen. Interpretation Summary Normal LV size. Left ventricular systolic function is normal. The estimated ejection fraction is 55 %. Stable appearing bioprosthetic aortic valve apparatus. Mild (1+) eccentric mitral valve insufficiency. No obvious vegetation seen Ordering Physician: Miah Llanes Referring Physician: Trupti Bagley Performed By: Robyn Schofield RDCS
[2019-05-16 08:46] LABS: AST(SGOT) 127 U/L (15-37); Alanine Aminotransfer ALT/SGPT 78 U/L (13-56); Albumin, Serum 1.6 g/dL (3.2-5.0); Alkaline Phosphatase 252 U/L (45-117); Bilirubin, Direct 2.01 mg/dL (0.00-0.30); Globulin 3.5 g/dL (2.2-4.2); Protein, Total 5.1 g/dL (6.4-8.2)
[2019-05-16] MEDS: Midazolam 2 MG/2 ML Syringe 1 MG IV ×2 (09:08→09:53)
[2019-05-16] MEDS: fentaNYL 100 MCG/2 ML Ampul 25 MCG IV (09:10)
[2019-05-16 09:43] LABS: CPK Total, Creatine Kinase 808 U/L (26-192)
[2019-05-16] MEDS: 0.9% Saline Lock 10 ML Syringe IV ×2 (09:52→23:26)
[2019-05-16] MEDS: Chlorhexidine 15 ML PO ×2 (10:00→21:28)
[2019-05-16] MEDS: Famotidine 20 MG Tablet PO (10:00)
--- NOTE | 2019-05-16 10:38 | ONC.CONS.INP ---
Consult Referring Physician: Dr. Francesco Llanes Consult Results: Reactive thrombocytopenia. Subjective Date of Service:: 05/16/19 Chief Complaint: Sepsis and thrombocytopenia. History of Present Illness: 64 year old woman with a past medical history of hypertension, COPD, obstructive sleep apnea, anxiety/depression, GERD, hyperlipidemia, morbid obesity, tobacco dependence in remission, degenerative disc disease, chronic back pain, opiate dependence, benzodiazepine dependence, history of a bioprosthetic aortic valve replacement and gout who was brought to the ER at [facility] on 05/13/19 by squad after being found unresponsive lying by her bed by a friend. She has been found to have Sphingomonas sepsis associated with thrombocytopenia, PT is also elevated with normal fibrinogen. She is now intubated, on ventilatory support. Past Medical History: Chronic Problems (Last Reviewed 05/13/19 @ 20:07 by Trupti Bagley DO) History of aortic valve replacement with bioprosthetic valve (Chronic) Tobacco dependence in remission (Chronic) quit in 2018 after smoking 1 and 1/2 PPD for 40 years Benzodiazepine dependence (Chronic) COPD (chronic obstructive pulmonary disease) case management patient (Chronic) Obstructive sleep apnea (Chronic) complaint with CPAP per nephew but has not had a sleep study in many years and she has gained a lot of wt. Anxiety (Chronic) Depression (Chronic) GERD (gastroesophageal reflux disease) (Chronic) Hyperlipidemia (Chronic) Morbid obesity (Chronic) Degenerative disc disease (Chronic) HTN (hypertension) (Chronic) Opiate dependence (Chronic) Past Medical/Surgical History: Past Medical History - Most Recent Inpatient Visit Past Medical History Start: 05/13/19 14:35 Text: Status: Complete Freq: ONCE Protocol: Document 05/13/19 15:14 Loyda (Rec: 05/13/19 15:16 [id number]) BMI Required to complete PMH What is Patient's BMI 45.2 Past Medical History Unable History Recalled Yes: AND REVIEWED WITH NEPHEW Query Text:Pt Unable/Family Not Present Neurologic Medical History Hx Stroke/TIA No Hx Dementia/Alzheimer's No Hx Parkinson's Disease No Hx Seizures Yes: 2004 Hx Multiple Sclerosis No Hx Migraines Yes Cardiac Medical History VTE Present on Admission No Hx of Deep Vein Thrombosis/VTE/PE No Hx Hypertension Yes Hx Chest Pain/Angina Yes Hx Heart Attack Yes Hx Cardiac Surgery/Stents/Etc. Yes: AORTIC VALVE REPLACED () Hx Heart Failure Yes Hx Pacemaker/AICD No Hx Irregular Heartbeat and/or Afib Yes: MURMUR Hx Anticoagulant Therapy Yes: ASPRIN Query Text:(Coumadin, Aspirin, Plavix, Xarelto, etc.) Hx Pain in Legs when Walking/Leg Cramps Yes Respiratory Medical History Hx COPD Yes Hx Emphysema No Hx Smoking Yes Smoking Status Former smoker Tobacco Use Cigarettes Years Smoking 35 Packs Smoked per Day 1.5 Hx Smoking Cessation Date 2017 Hx Smoking Cessation Counseling No Hx Smoking Exposure Yes Hx Tobacco Use in last 12 months No Hx of Pipe Smoking No Hx Sleep Apnea Yes CPAP Yes BIPAP No STOP Results Positive GI Medical History Hx Ulcer No Hx Hepatitis No Hx Cirrhosis No Hx GI Bleed No Hx Unplanned Weight Loss No Genitourinary Medical History Indwelling Catheter in Place on Arrival/ Yes Admission Hx Renal Disease No Hx Dialysis No Comments PLACED IN ED Musculoskeletal History Hx Arthritis Yes Hx Rheumatoid Arthritis No Endocrine Medical History Hx Diabetes No Hx Thyroid Disease No Hematologic Medical History Hx of Blood Transfusion No Hx of Transfusion in last 3 Months No Ever experience any problems with No transfusion(s)? Hx of Preganancy in last 3 Months No Nurse Filling Out Transfusion & JLAMP Questions: Date: 05/13/19 Time: 15:16 Psycho/Social Medical History Hx Depression Yes Hx Anxiety Yes Hx Behavior Disorder No Hx Alcohol Use Yes: quit years ago Hx Substance Use No Other Medical History Hx Blood Disorders No Hx Anemia No Hx Cancer No Hx Drug Resistant Organism No Wound/Pressure Injury Present on Arrival No: UNABLE TO ASSESS AT THIS /Admission TIME Query Text:If yes, chart assessment in Shift/Clinical Findings Central Line/PICC/VAD Present on Arrival No /Admission Antibiotics within last 7 days? No Risk for Readmission Number of Risk Factors 6 At Risk for Readmission Patient is At Risk For Readmission Patient is eligible for Call Back Y Past Medical History (Last Reviewed 05/13/19 @ 20:07 by Trupti Bagley DO) Benzodiazepine dependence (Chronic) COPD (chronic obstructive pulmonary disease) case management patient (Chronic) Obstructive sleep apnea (Chronic) Anxiety (Chronic) Depression (Chronic) GERD (gastroesophageal reflux disease) (Chronic) Hyperlipidemia (Chronic) Morbid obesity (Chronic) Degenerative disc disease (Chronic) HTN (hypertension) (Chronic) Opiate dependence (Chronic) Cat bite involving extremity (Resolved) Cellulitis (Resolved) Ulcer of right lower leg (Resolved) Maternal Family History: Family History (Last Reviewed 05/13/19 @ 20:09 by Trupti Bagley DO) Mother Hypertension Heart disease Diabetes CVA (cerebral vascular accident) Family History: Diabetes, - - from aneurysm, unknown type Paternal Family History: Family History (Last Reviewed 05/13/19 @ 20:09 by Trupti Bagley DO) Mother Hypertension Heart disease Diabetes CVA (cerebral vascular accident) Family History: - - Denies known paternal medical history including cardiac history. - Social History Lives: Alone, - - she has children but her nephew tells me that the children do not talk with her and he is the POA Smoking Status: Former smoker - she quit in 2018 but prior to that she smoked 1-1/2 packs of cigarettes daily for at least 40 years. Tobacco Use: Cigarettes Alcohol: None Drugs: None Allergies/Adverse Reactions: Allergy/AdvReac Type Severity Reaction Status Date / Time Iodinated Contrast Media Allergy Swelling Verified 04/08/19 09:57 [CONTRASTS] lidocaine [From Lidoderm] Allergy Rash Verified 04/08/19 09:57 Review of Systems Constitutional:: Reports: - - Pt cannot give history. Vital Signs Height 5 ft 6.93 in Weight: 135.6 kg Weight in Pounds 298.9 lbs Pulse Ox 99 Temperature 100.6 F Pulse Rate 132 Respiratory Rate 43 Blood Pressure [BP] 122/93 Blood Pressure 95/64 Blood Pressure Position [BP] Semi-Fowlers Blood Pressure Position Semi-Fowlers - Physical Exam General: Lethargic, - - moves eyes to noice. Oropharynx:: - - + oral intubation with cracked lips Cardiac:: Normal S1, Normal S2 Lungs: Clear to auscultation, Excusion symmetrical. Negative for: Rhonchi, Wheezes Extremities:: Negative for: Cyanosis, Edema Neurological: - - Not assessed. Lymphatics:: Negative for: Cervical lymphadenopathy, Supraclavicular lymphadenopathy, Axillary lymphadenopathy Laboratory Data: Microbiology 05/14/19 10:50 Blood Culture - Preliminary Blood Culture (Wb) - Anticubital Right No growth in 48 hours. 05/14/19 08:00 Blood Culture - Preliminary Blood Culture (Wb) - Central Line No growth in 48 hours. 05/13/19 19:40 Blood Culture - Final Blood Culture (Wb) - Left Forearm Pasteurella multocida 05/13/19 18:15 Blood Culture - Final Blood Culture (Wb) - Central Line Pasteurella multocida 05/13/19 11:40 Blood Culture - Preliminary Blood Culture (Wb) - Anticubital Left Sphingomonas paucimobilis 05/13/19 22:55 Gram Stain - Final Sputum, Induced/Lukens Respiratory Culture - Final Serratia marcescens Enterobacter cloacae complex Staphylococcus pseudintermediu 05/13/19 10:49 Urine Culture - Final Urine Catheter - Catheter Culture exhibits no growth. 05/13/19 11:54 Blood Culture - Final Blood Culture (Wb) - Left Hand Gram negative joan Laboratory Tests 05/16/19 05/16/19 05/16/19 Range/Units 08:41 06:40 06:30 WBC 28.4 H (4.4-11.0) K/mm3 RBC 4.03 L (4.2-5.4) M/mm3 Hgb 12.4 (12.0-15.0) g/dL Hct 36.4 L (37-47) % MCV 90.3 (81-99) fL MCH 30.8 (27.0-32.0) pg MCHC 34.1 (32-36) g/dL RDW Std Deviation 55.6 H (35.1-43.9) fl RDW Coeff of Pierre 16.8 H (11.6-14.6) % Plt Count 16 L* (150-450) K/mm3 Immature Gran % (Auto) 4.500 H (0.0-0.9) % Neut % (Auto) 86.2 H (47-70) % Lymph % (Auto) 5.6 L (19-41) % [place] % (Auto) 3.2 (0-10) % Eos % (Auto) 0.0 (0-5) % Baso % (Auto) 0.5 (0-1) % Absolute Neuts (auto) 24.5 H (2.0-7.7) X10^3/uL Absolute Lymphs (auto) 1.59 (0.83-4.51) X10^3/uL Nucleated RBC % 0.2 (0-5) % Differential Comment SCANNED Diff Path Review May foll Platelet Estimate MKD DEC (ADEQ) Haptoglobin (34-200) mg/dL PT 15.6 H (11.7-14.9) SECONDS INR 1.3 APTT 30.8 (24.1-36.2) Seconds Fibrinogen 404 (203-444) mg/dl Specimen Type Sample Site pH (7.35-7.45) Bicarbonate Actual (22-26) mmol/L POC Total CO2 mmol/L Base Excess (-2 to +2) mmol/L O2 Saturation (95-99) % O2 % ABG pCO2 (35-45) mmHg ABG pO2 (75-100) mmHG Gennaro Test VBG pH (7.32-7.42) VBG pO2 (25-40) mmHg VBG O2 Sat (Calc) (50-70) % VBG O2 Content (23-33) mmol/L VBG Base Excess (-1.0-3.5) mmol/L POC Mix VBG pCO2 Pt Tmp (41-51) mmHg Respiration Rate O2 Delivery Device Vent Mode Tidal Volume POC PEEP Blood Gas Notified Whom Blood Gas Notified Time Sodium (136-145) mmol/L Potassium (3.5-5.1) mmol/L Chloride (98-107) mmol/L Carbon Dioxide (21.0-32.0) mmol/L Anion Gap (5-15) BUN (7-18) mg/dL Creatinine (0.55-1.02) mg/dL Estim Creat Clear Calc ml/min Est GFR (MDRD) Af Amer (>60) mL/min Est GFR (MDRD) Non-Af (>60) mL/min BUN/Creatinine Ratio (10-20) RATIO Glucose (74-106) mg/dL Lactic Acid (0.4-2.0) mmol/L Calcium (8.5-10.1) mg/dL Phosphorus (2.5-4.9) mg/dL Total Bilirubin (0.20-1.00) mg/dL Direct Bilirubin (0.00-0.30) mg/dL AST (15-37) U/L ALT (13-56) U/L Alkaline Phosphatase (45-117) U/L Ammonia (11-32) umol/L Total Creatine Kinase (26-192) U/L Total Protein (6.4-8.2) g/dL Albumin (3.2-5.0) g/dL Globulin (2.2-4.2) g/dL Random Vancomycin 18.0 H (0.0-15.0) ug/mL Hepatitis A IgM Ab (Negative) Hep Bs Antigen (Negative) Hep B Core IgM Ab (Negative) POC Glucose (70-110) mg/dL 05/16/19 05/16/19 05/16/19 Range/Units 06:25 05:14 04:25 WBC (4.4-11.0) K/mm3 RBC (4.2-5.4) M/mm3 Hgb (12.0-15.0) g/dL Hct (37-47) % MCV (81-99) fL MCH (27.0-32.0) pg MCHC (32-36) g/dL RDW Std Deviation (35.1-43.9) fl RDW Coeff of Pierre (11.6-14.6) % Plt Count (150-450) K/mm3 Immature Gran % (Auto) (0.0-0.9) % Neut % (Auto) (47-70) % Lymph % (Auto) (19-41) % [place] % (Auto) (0-10) % Eos % (Auto) (0-5) % Baso % (Auto) (0-1) % Absolute Neuts (auto) (2.0-7.7) X10^3/uL Absolute Lymphs (auto) (0.83-4.51) X10^3/uL Nucleated RBC % (0-5) % Differential Comment Diff Path Review Platelet Estimate (ADEQ) Haptoglobin (34-200) mg/dL PT (11.7-14.9) SECONDS INR APTT (24.1-36.2) Seconds Fibrinogen (203-444) mg/dl Specimen Type Sample Site pH (7.35-7.45) Bicarbonate Actual (22-26) mmol/L POC Total CO2 mmol/L Base Excess (-2 to +2) mmol/L O2 Saturation (95-99) % O2 % ABG pCO2 (35-45) mmHg ABG pO2 (75-100) mmHG Gennaro Test VBG pH (7.32-7.42) VBG pO2 (25-40) mmHg VBG O2 Sat (Calc) (50-70) % VBG O2 Content (23-33) mmol/L VBG Base Excess (-1.0-3.5) mmol/L POC Mix VBG pCO2 Pt Tmp (41-51) mmHg Respiration Rate O2 Delivery Device Vent Mode Tidal Volume POC PEEP Blood Gas Notified Whom Blood Gas Notified Time Sodium (136-145) mmol/L Potassium (3.5-5.1) mmol/L Chloride (98-107) mmol/L Carbon Dioxide (21.0-32.0) mmol/L Anion Gap (5-15) BUN (7-18) mg/dL Creatinine (0.55-1.02) mg/dL Estim Creat Clear Calc ml/min Est GFR (MDRD) Af Amer (>60) mL/min Est GFR (MDRD) Non-Af (>60) mL/min BUN/Creatinine Ratio (10-20) RATIO Glucose (74-106) mg/dL Lactic Acid (0.4-2.0) mmol/L Calcium (8.5-10.1) mg/dL Phosphorus (2.5-4.9) mg/dL Total Bilirubin (0.20-1.00) mg/dL Direct Bilirubin (0.00-0.30) mg/dL AST (15-37) U/L ALT (13-56) U/L Alkaline Phosphatase (45-117) U/L Ammonia < 10.0 L (11-32) umol/L Total Creatine Kinase 808 H (26-192) U/L Total Protein (6.4-8.2) g/dL Albumin (3.2-5.0) g/dL Globulin (2.2-4.2) g/dL Random Vancomycin (0.0-15.0) ug/mL Hepatitis A IgM Ab (Negative) Hep Bs Antigen (Negative) Hep B Core IgM Ab (Negative) POC Glucose 118 H (70-110) mg/dL 05/16/19 05/16/19 05/15/19 Range/Units 04:25 04:25 23:05 WBC (4.4-11.0) K/mm3 RBC (4.2-5.4) M/mm3 Hgb (12.0-15.0) g/dL Hct (37-47) % MCV (81-99) fL MCH (27.0-32.0) pg MCHC (32-36) g/dL RDW Std Deviation (35.1-43.9) fl RDW Coeff of Pierre (11.6-14.6) % Plt Count (150-450) K/mm3 Immature Gran % (Auto) (0.0-0.9) % Neut % (Auto) (47-70) % Lymph % (Auto) (19-41) % [place] % (Auto) (0-10) % Eos % (Auto) (0-5) % Baso % (Auto) (0-1) % Absolute Neuts (auto) (2.0-7.7) X10^3/uL Absolute Lymphs (auto) (0.83-4.51) X10^3/uL Nucleated RBC % (0-5) % Differential Comment Diff Path Review Platelet Estimate (ADEQ) Haptoglobin (34-200) mg/dL PT (11.7-14.9) SECONDS INR APTT (24.1-36.2) Seconds Fibrinogen (203-444) mg/dl Specimen Type Sample Site pH (7.35-7.45) Bicarbonate Actual (22-26) mmol/L POC Total CO2 mmol/L Base Excess (-2 to +2) mmol/L O2 Saturation (95-99) % O2 % ABG pCO2 (35-45) mmHg ABG pO2 (75-100) mmHG Gennaro Test VBG pH (7.32-7.42) VBG pO2 (25-40) mmHg VBG O2 Sat (Calc) (50-70) % VBG O2 Content (23-33) mmol/L VBG Base Excess (-1.0-3.5) mmol/L POC Mix VBG pCO2 Pt Tmp (41-51) mmHg Respiration Rate O2 Delivery Device Vent Mode Tidal Volume POC PEEP Blood Gas Notified Whom Blood Gas Notified Time Sodium 145 (136-145) mmol/L Potassium 4.4 (3.5-5.1) mmol/L Chloride 116 H (98-107) mmol/L Carbon Dioxide 17.0 L (21.0-32.0) mmol/L Anion Gap (5-15) BUN 130 H* (7-18) mg/dL Creatinine 2.47 H (0.55-1.02) mg/dL Estim Creat Clear Calc 22.11 ml/min Est GFR (MDRD) Af Amer 25 L (>60) mL/min Est GFR (MDRD) Non-Af 21 L (>60) mL/min BUN/Creatinine Ratio 52.6 H (10-20) RATIO Glucose 213 H 186 H (74-106) mg/dL Lactic Acid (0.4-2.0) mmol/L Calcium 7.3 L (8.5-10.1) mg/dL Phosphorus 3.8 (2.5-4.9) mg/dL Total Bilirubin 2.50 H (0.20-1.00) mg/dL Direct Bilirubin 2.01 H (0.00-0.30) mg/dL AST 127 H (15-37) U/L ALT 78 H (13-56) U/L Alkaline Phosphatase 252 H (45-117) U/L Ammonia (11-32) umol/L Total Creatine Kinase (26-192) U/L Total Protein 5.1 L (6.4-8.2) g/dL Albumin 1.6 L 1.5 L (3.2-5.0) g/dL Globulin 3.5 (2.2-4.2) g/dL Random Vancomycin (0.0-15.0) ug/mL Hepatitis A IgM Ab (Negative) Hep Bs Antigen (Negative) Hep B Core IgM Ab (Negative) POC Glucose (70-110) mg/dL 05/15/19 05/15/19 05/15/19 Range/Units 23:01 21:40 17:54 WBC (4.4-11.0) K/mm3 RBC (4.2-5.4) M/mm3 Hgb (12.0-15.0) g/dL Hct (37-47) % MCV (81-99) fL MCH (27.0-32.0) pg MCHC (32-36) g/dL RDW Std Deviation (35.1-43.9) fl RDW Coeff of Pierre (11.6-14.6) % Plt Count (150-450) K/mm3 Immature Gran % (Auto) (0.0-0.9) % Neut % (Auto) (47-70) % Lymph % (Auto) (19-41) % [place] % (Auto) (0-10) % Eos % (Auto) (0-5) % Baso % (Auto) (0-1) % Absolute Neuts (auto) (2.0-7.7) X10^3/uL Absolute Lymphs (auto) (0.83-4.51) X10^3/uL Nucleated RBC % (0-5) % Differential Comment Diff Path Review Platelet Estimate (ADEQ) Haptoglobin (34-200) mg/dL PT (11.7-14.9) SECONDS INR APTT (24.1-36.2) Seconds Fibrinogen (203-444) mg/dl Specimen Type ART Sample Site R Radial pH 7.46 H (7.35-7.45) Bicarbonate Actual 15.4 L (22-26) mmol/L POC Total CO2 16 mmol/L Base Excess -8 L (-2 to +2) mmol/L O2 Saturation 100 H (95-99) % O2 % 100 ABG pCO2 21.7 L (35-45) mmHg ABG pO2 227 H (75-100) mmHG Gennaro Test POS VBG pH (7.32-7.42) VBG pO2 (25-40) mmHg VBG O2 Sat (Calc) (50-70) % VBG O2 Content (23-33) mmol/L VBG Base Excess (-1.0-3.5) mmol/L POC Mix VBG pCO2 Pt Tmp (41-51) mmHg Respiration Rate 12 O2 Delivery Device Vent Vent Mode A-C Tidal Volume 450 POC PEEP 5 Blood Gas Notified Whom [employer] Blood Gas Notified Time 1745 Sodium (136-145) mmol/L Potassium (3.5-5.1) mmol/L Chloride (98-107) mmol/L Carbon Dioxide (21.0-32.0) mmol/L Anion Gap (5-15) BUN (7-18) mg/dL Creatinine (0.55-1.02) mg/dL Estim Creat Clear Calc ml/min Est GFR (MDRD) Af Amer (>60) mL/min Est GFR (MDRD) Non-Af (>60) mL/min BUN/Creatinine Ratio (10-20) RATIO Glucose (74-106) mg/dL Lactic Acid 2.5 H (0.4-2.0) mmol/L Calcium (8.5-10.1) mg/dL Phosphorus (2.5-4.9) mg/dL Total Bilirubin (0.20-1.00) mg/dL Direct Bilirubin (0.00-0.30) mg/dL AST (15-37) U/L ALT (13-56) U/L Alkaline Phosphatase (45-117) U/L Ammonia (11-32) umol/L Total Creatine Kinase (26-192) U/L Total Protein (6.4-8.2) g/dL Albumin (3.2-5.0) g/dL Globulin (2.2-4.2) g/dL Random Vancomycin (0.0-15.0) ug/mL Hepatitis A IgM Ab (Negative) Hep Bs Antigen (Negative) Hep B Core IgM Ab (Negative) POC Glucose 25 L* (70-110) mg/dL 05/15/19 05/15/19 05/15/19 Range/Units 17:20 17:20 17:20 WBC 12.5 H (4.4-11.0) K/mm3 RBC 4.29 (4.2-5.4) M/mm3 Hgb 13.0 (12.0-15.0) g/dL Hct 39.4 (37-47) % MCV 91.8 (81-99) fL MCH 30.3 (27.0-32.0) pg MCHC 33.0 (32-36) g/dL RDW Std Deviation 56.7 H (35.1-43.9) fl RDW Coeff of Pierre 16.8 H (11.6-14.6) % Plt Count 15 L* (150-450) K/mm3 Immature Gran % (Auto) (0.0-0.9) % Neut % (Auto) (47-70) % Lymph % (Auto) (19-41) % [place] % (Auto) (0-10) % Eos % (Auto) (0-5) % Baso % (Auto) (0-1) % Absolute Neuts (auto) (2.0-7.7) X10^3/uL Absolute Lymphs (auto) (0.83-4.51) X10^3/uL Nucleated RBC % (0-5) % Differential Comment Diff Path Review May foll Platelet Estimate (ADEQ) Haptoglobin (34-200) mg/dL PT (11.7-14.9) SECONDS INR APTT (24.1-36.2) Seconds Fibrinogen (203-444) mg/dl Specimen Type Sample Site pH (7.35-7.45) Bicarbonate Actual (22-26) mmol/L POC Total CO2 mmol/L Base Excess (-2 to +2) mmol/L O2 Saturation (95-99) % O2 % ABG pCO2 (35-45) mmHg ABG pO2 (75-100) mmHG Gennaro Test VBG pH (7.32-7.42) VBG pO2 (25-40) mmHg VBG O2 Sat (Calc) (50-70) % VBG O2 Content (23-33) mmol/L VBG Base Excess (-1.0-3.5) mmol/L POC Mix VBG pCO2 Pt Tmp (41-51) mmHg Respiration Rate O2 Delivery Device Vent Mode Tidal Volume POC PEEP Blood Gas Notified Whom Blood Gas Notified Time Sodium (136-145) mmol/L Potassium (3.5-5.1) mmol/L Chloride (98-107) mmol/L Carbon Dioxide (21.0-32.0) mmol/L Anion Gap (5-15) BUN (7-18) mg/dL Creatinine (0.55-1.02) mg/dL Estim Creat Clear Calc ml/min Est GFR (MDRD) Af Amer (>60) mL/min Est GFR (MDRD) Non-Af (>60) mL/min BUN/Creatinine Ratio (10-20) RATIO Glucose (74-106) mg/dL Lactic Acid 2.8 H (0.4-2.0) mmol/L Calcium (8.5-10.1) mg/dL Phosphorus (2.5-4.9) mg/dL Total Bilirubin (0.20-1.00) mg/dL Direct Bilirubin (0.00-0.30) mg/dL AST (15-37) U/L ALT (13-56) U/L Alkaline Phosphatase (45-117) U/L Ammonia (11-32) umol/L Total Creatine Kinase 1253 H (26-192) U/L Total Protein (6.4-8.2) g/dL Albumin (3.2-5.0) g/dL Globulin (2.2-4.2) g/dL Random Vancomycin (0.0-15.0) ug/mL Hepatitis A IgM Ab (Negative) Hep Bs Antigen (Negative) Hep B Core IgM Ab (Negative) POC Glucose (70-110) mg/dL 05/15/19 05/15/19 05/15/19 Range/Units 17:20 16:37 11:35 WBC (4.4-11.0) K/mm3 RBC (4.2-5.4) M/mm3 Hgb (12.0-15.0) g/dL Hct (37-47) % MCV (81-99) fL MCH (27.0-32.0) pg MCHC (32-36) g/dL RDW Std Deviation (35.1-43.9) fl RDW Coeff of Pierre (11.6-14.6) % Plt Count (150-450) K/mm3 Immature Gran % (Auto) (0.0-0.9) % Neut % (Auto) (47-70) % Lymph % (Auto) (19-41) % [place] % (Auto) (0-10) % Eos % (Auto) (0-5) % Baso % (Auto) (0-1) % Absolute Neuts (auto) (2.0-7.7) X10^3/uL Absolute Lymphs (auto) (0.83-4.51) X10^3/uL Nucleated RBC % (0-5) % Differential Comment Diff Path Review Platelet Estimate (ADEQ) Haptoglobin (34-200) mg/dL PT (11.7-14.9) SECONDS INR APTT (24.1-36.2) Seconds Fibrinogen (203-444) mg/dl Specimen Type VANESSA Sample Site pH (7.35-7.45) Bicarbonate Actual (22-26) mmol/L POC Total CO2 mmol/L Base Excess (-2 to +2) mmol/L O2 Saturation (95-99) % O2 % 100 ABG pCO2 (35-45) mmHg ABG pO2 (75-100) mmHG Gennaro Test VBG pH 7.29 L (7.32-7.42) VBG pO2 32 (25-40) mmHg VBG O2 Sat (Calc) 56 (50-70) % VBG O2 Content 17 L (23-33) mmol/L VBG Base Excess -11 L (-1.0-3.5) mmol/L POC Mix VBG pCO2 Pt Tmp 32.8 L (41-51) mmHg Respiration Rate 12 O2 Delivery Device Vent Vent Mode Tidal Volume 450 POC PEEP 5 Blood Gas Notified Whom [employer] Blood Gas Notified Time 1636 Sodium 147 H (136-145) mmol/L Potassium 3.7 (3.5-5.1) mmol/L Chloride 120 H (98-107) mmol/L Carbon Dioxide 17.0 L (21.0-32.0) mmol/L Anion Gap 10 (5-15) BUN 122 H* (7-18) mg/dL Creatinine 2.47 H (0.55-1.02) mg/dL Estim Creat Clear Calc 22.11 ml/min Est GFR (MDRD) Af Amer 25 L (>60) mL/min Est GFR (MDRD) Non-Af 21 L (>60) mL/min BUN/Creatinine Ratio 49.4 H (10-20) RATIO Glucose 117 H (74-106) mg/dL Lactic Acid (0.4-2.0) mmol/L Calcium 7.8 L (8.5-10.1) mg/dL Phosphorus (2.5-4.9) mg/dL Total Bilirubin (0.20-1.00) mg/dL Direct Bilirubin (0.00-0.30) mg/dL AST (15-37) U/L ALT (13-56) U/L Alkaline Phosphatase (45-117) U/L Ammonia (11-32) umol/L Total Creatine Kinase (26-192) U/L Total Protein (6.4-8.2) g/dL Albumin (3.2-5.0) g/dL Globulin (2.2-4.2) g/dL Random Vancomycin (0.0-15.0) ug/mL Hepatitis A IgM Ab (Negative) Hep Bs Antigen (Negative) Hep B Core IgM Ab (Negative) POC Glucose 131 H (70-110) mg/dL 05/15/19 05/14/19 05/14/19 Range/Units 05:15 17:20 08:00 WBC (4.4-11.0) K/mm3 RBC (4.2-5.4) M/mm3 Hgb (12.0-15.0) g/dL Hct (37-47) % MCV (81-99) fL MCH (27.0-32.0) pg MCHC (32-36) g/dL RDW Std Deviation (35.1-43.9) fl RDW Coeff of Pierre (11.6-14.6) % Plt Count (150-450) K/mm3 Immature Gran % (Auto) (0.0-0.9) % Neut % (Auto) (47-70) % Lymph % (Auto) (19-41) % [place] % (Auto) (0-10) % Eos % (Auto) (0-5) % Baso % (Auto) (0-1) % Absolute Neuts (auto) (2.0-7.7) X10^3/uL Absolute Lymphs (auto) (0.83-4.51) X10^3/uL Nucleated RBC % (0-5) % Differential Comment Diff Path Review Reviewed Reviewed Platelet Estimate (ADEQ) Haptoglobin (34-200) mg/dL PT (11.7-14.9) SECONDS INR APTT (24.1-36.2) Seconds Fibrinogen (203-444) mg/dl Specimen Type Sample Site pH (7.35-7.45) Bicarbonate Actual (22-26) mmol/L POC Total CO2 mmol/L Base Excess (-2 to +2) mmol/L O2 Saturation (95-99) % O2 % ABG pCO2 (35-45) mmHg ABG pO2 (75-100) mmHG Gennaro Test VBG pH (7.32-7.42) VBG pO2 (25-40) mmHg VBG O2 Sat (Calc) (50-70) % VBG O2 Content (23-33) mmol/L VBG Base Excess (-1.0-3.5) mmol/L POC Mix VBG pCO2 Pt Tmp (41-51) mmHg Respiration Rate O2 Delivery Device Vent Mode Tidal Volume POC PEEP Blood Gas Notified Whom Blood Gas Notified Time Sodium (136-145) mmol/L Potassium (3.5-5.1) mmol/L Chloride (98-107) mmol/L Carbon Dioxide (21.0-32.0) mmol/L Anion Gap (5-15) BUN (7-18) mg/dL Creatinine (0.55-1.02) mg/dL Estim Creat Clear Calc ml/min Est GFR (MDRD) Af Amer (>60) mL/min Est GFR (MDRD) Non-Af (>60) mL/min BUN/Creatinine Ratio (10-20) RATIO Glucose (74-106) mg/dL Lactic Acid (0.4-2.0) mmol/L Calcium (8.5-10.1) mg/dL Phosphorus (2.5-4.9) mg/dL Total Bilirubin (0.20-1.00) mg/dL Direct Bilirubin (0.00-0.30) mg/dL AST (15-37) U/L ALT (13-56) U/L Alkaline Phosphatase (45-117) U/L Ammonia (11-32) umol/L Total Creatine Kinase (26-192) U/L Total Protein (6.4-8.2) g/dL Albumin (3.2-5.0) g/dL Globulin (2.2-4.2) g/dL Random Vancomycin (0.0-15.0) ug/mL Hepatitis A IgM Ab Negative (Negative) Hep Bs Antigen Negative (Negative) Hep B Core IgM Ab Negative (Negative) POC Glucose (70-110) mg/dL 05/13/19 Range/Units 17:55 WBC (4.4-11.0) K/mm3 RBC (4.2-5.4) M/mm3 Hgb (12.0-15.0) g/dL Hct (37-47) % MCV (81-99) fL MCH (27.0-32.0) pg MCHC (32-36) g/dL RDW Std Deviation (35.1-43.9) fl RDW Coeff of Pierre (11.6-14.6) % Plt Count (150-450) K/mm3 Immature Gran % (Auto) (0.0-0.9) % Neut % (Auto) (47-70) % Lymph % (Auto) (19-41) % [place] % (Auto) (0-10) % Eos % (Auto) (0-5) % Baso % (Auto) (0-1) % Absolute Neuts (auto) (2.0-7.7) X10^3/uL Absolute Lymphs (auto) (0.83-4.51) X10^3/uL Nucleated RBC % (0-5) % Differential Comment Diff Path Review Platelet Estimate (ADEQ) Haptoglobin 160 (34-200) mg/dL PT (11.7-14.9) SECONDS INR APTT (24.1-36.2) Seconds Fibrinogen (203-444) mg/dl Specimen Type Sample Site pH (7.35-7.45) Bicarbonate Actual (22-26) mmol/L POC Total CO2 mmol/L Base Excess (-2 to +2) mmol/L O2 Saturation (95-99) % O2 % ABG pCO2 (35-45) mmHg ABG pO2 (75-100) mmHG Gennaro Test VBG pH (7.32-7.42) VBG pO2 (25-40) mmHg VBG O2 Sat (Calc) (50-70) % VBG O2 Content (23-33) mmol/L VBG Base Excess (-1.0-3.5) mmol/L POC Mix VBG pCO2 Pt Tmp (41-51) mmHg Respiration Rate O2 Delivery Device Vent Mode Tidal Volume POC PEEP Blood Gas Notified Whom Blood Gas Notified Time Sodium (136-145) mmol/L Potassium (3.5-5.1) mmol/L Chloride (98-107) mmol/L Carbon Dioxide (21.0-32.0) mmol/L Anion Gap (5-15) BUN (7-18) mg/dL Creatinine (0.55-1.02) mg/dL Estim Creat Clear Calc ml/min Est GFR (MDRD) Af Amer (>60) mL/min Est GFR (MDRD) Non-Af (>60) mL/min BUN/Creatinine Ratio (10-20) RATIO Glucose (74-106) mg/dL Lactic Acid (0.4-2.0) mmol/L Calcium (8.5-10.1) mg/dL Phosphorus (2.5-4.9) mg/dL Total Bilirubin (0.20-1.00) mg/dL Direct Bilirubin (0.00-0.30) mg/dL AST (15-37) U/L ALT (13-56) U/L Alkaline Phosphatase (45-117) U/L Ammonia (11-32) umol/L Total Creatine Kinase (26-192) U/L Total Protein (6.4-8.2) g/dL Albumin (3.2-5.0) g/dL Globulin (2.2-4.2) g/dL Random Vancomycin (0.0-15.0) ug/mL Hepatitis A IgM Ab (Negative) Hep Bs Antigen (Negative) Hep B Core IgM Ab (Negative) POC Glucose (70-110) mg/dL Diagnostic Data: Diagnostic Data Abdomen CT 05/13/19 19:47 IMPRESSION: Infrarenal abdominal aortic aneurysm. No rupture or periaortic collection. Colonic diverticulosis. No obstruction. Bilateral lower lung infiltrates. Electronically Signed: Toi Saenz MD at 23:09 EDT , Service support , Brain CT 05/15/19 16:55 IMPRESSION: Mild cortical atrophy and periventricular white matter ischemic changes. No evidence for acute bleed. If concern for acute infarct MRI recommended Electronically Signed: Reynaldo Hall MD at 17:19 EDT , Service support , Chest X-Ray 05/16/19 06:05 IMPRESSION: Lines and tubes as described above. Mild left base atelectasis, cannot exclude minimal left-sided pleural effusion versus pleural thickening. Electronically Signed: Sara Jesus MD at 6:43 EDT , Service support , Assessment and Plan Thrombocytopenia with Sphingomonas septicemia, on Antibiotics. Etiology of thrombocytopenia is multifactorial including sepsis, drugs. Abnormal Coagulation-increased PT may be due to Vitamin K deficiency. Prognosis is poor. Suggestion is to treat sepsis, Transfuse Platelets if it drops below 10. Will not follow further on this admission. Please call if now problems arise. Medications: Medications Added to Medication List This Visit Category Date Time Status Dextrose 5% Rosie Bag 192.8 ml Med 05/16/19 10:00 Active Amiodarone [Cordarone (G)] 360 mg CONT INF 0.5 mg/min Meropenem [Merrem] 1 gm Med 05/16/19 10:00 Active 0.9% Normal Saline 100 ml IV Q12 Primary Care Provider: Surya Hickey MD Referring Provider: DO Carlos San Problem List (1) Thrombocytopenia Status: Acute (2) Septic shock Status: Acute Code Visit Office Visits / Consults: [id number] IP Consult L5
--- NOTE | 2019-05-16 10:47 | PN.CARD_ITS ---
Subjectve: Patient seen and evaluated. NILDA performed Objective: Vital Signs Temp Pulse Resp BP Pulse Ox 100.6 F H 132 H 43 H 122/93 H 99 05/16/19 08:00 05/16/19 09:00 05/16/19 09:00 05/16/19 08:00 05/16/19 08:00 Oxygen Delivery Method Mechanical Ventilator Weight: 298 lb 15.149 oz Body Mass Index (BMI) 45.2 Finger Stick Blood Glucose 180 Intake and Output for Last 24 Hours 05/14/19 05/15/19 05/16/19 23:59 23:59 23:59 Intake Total 2357.35 / 2462.35 3005.00 / 3033.54 130.00 / 130.00 Output Total 1350 / 1350 1250 / 1500 600 / 600 Balance 1007.35 / 1112.35 1755.00 / 1533.54 -470.00 / -470.00 General: Awake, Alert, Oriented x 3 HEENT: PERRL, EOMI, Sclera Non Icteric Neck: Supple, Good ROM, No Lymph Node Enlargement Lungs: Clear to auscultation Cardiovascular: Regular Rhythm, Normal S1, Normal S2, No Murmurs, No Rubs, No Gallops Vascular: No Carotid Bruits, Normal Femoral Pulses, Normal Radial Pulses, Normal Dorsalis Pedal Pulse, Normal Posterior Tibial Pulses Abdomen: Bowel Sounds Present, Soft, Non Tender, No HSM, No Organomegaly Extremities: No Cyanosis, No Clubbing, No edema Musculoskeletal: No Erythema Skin: No Rashes Lymphatic: No Lymph Node Enlargement Neurological: No Focal Motor or Sensory Deficit 05/15/19 16:37: VBG pH 7.29 L, VBG pO2 32, VBG O2 Sat (Calc) 56, VBG O2 Content 17 L, VBG Base Excess -11 L 05/15/19 17:20: Sodium 147 H, Potassium 3.7, Chloride 120 H, Carbon Dioxide 17.0 L, Anion Gap 10, BUN 122 H*, Creatinine 2.47 H, Est GFR (MDRD) Af Amer 25 L, Est GFR (MDRD) Non-Af 21 L, BUN/Creatinine Ratio 49.4 H, Glucose 117 H, Calcium 7.8 L 05/15/19 17:20: Lactic Acid 2.8 H 05/15/19 17:20: WBC 12.5 H, RBC 4.29, Hgb 13.0, Hct 39.4, MCV 91.8, MCH 30.3, MCHC 33.0, Plt Count 15 L* 05/15/19 17:54: pH 7.46 H, Bicarbonate Actual 15.4 L, POC Total CO2 16, Base Excess -8 L, O2 Saturation 100 H, ABG pCO2 21.7 L, ABG pO2 227 H, Gennaro Test POS 05/15/19 21:40: Lactic Acid 2.5 H 05/15/19 23:05: Glucose 186 H 05/16/19 04:25: Sodium 145, Potassium 4.4, Chloride 116 H, Carbon Dioxide 17.0 L , BUN 130 H*, Creatinine 2.47 H, Est GFR (MDRD) Af Amer 25 L, Est GFR (MDRD) Non-Af 21 L, BUN/Creatinine Ratio 52.6 H, Glucose 213 H, Calcium 7.3 L, Phosphorus 3.8 05/16/19 04:25: Total Bilirubin 2.50 H, Direct Bilirubin 2.01 H 05/16/19 06:30: WBC 28.4 H, RBC 4.03 L, Hgb 12.4, Hct 36.4 L, MCV 90.3, MCH 30.8, MCHC 34.1, Plt Count 16 L*, Immature Gran % (Auto) 4.500 H, Neut % (Auto) 86.2 H, Lymph % (Auto) 5.6 L, Toombs % (Auto) 3.2, Eos % (Auto) 0.0, Baso % (Auto) 0.5, Absolute Neuts (auto) 24.5 H, Nucleated RBC % 0.2 05/16/19 06:40: PT 15.6 H, INR 1.3, APTT 30.8 Rhythm: EKG: ECHO: Stress Test: Cardiac Cath: PCI: CT Surgery: Holter monitor: EPS: PPM: CXR: Chest CT Scan: Medical Necessity - Tobacco Use Smoking Status: Former smoker - she quit in 2018 but prior to that she smoked 1- 1/2 packs of cigarettes daily for at least 40 years. Tobacco Use: Cigarettes Assessment/Plan 1. Atrial fibrillation with rapid ventricular response rate. * It is not clear the duration of the above. My recommendation at this time however would be to attempt to slow down her heart rate to improve filling pressures as well as her blood pressure. I would agree with using intravenous amiodarone despite the fact that she is not anticoagulated. An echocardiogram was performed this afternoon which demonstrated overall preserved left ventricular systolic function estimated at 50% with septal hypokinesis and paradoxical septal motion. Over the course of the next few hours further recommendations will be made. * 2. Status post aortic valve replacement * Patient apparently has a history of aortic valve replacement and at this time my recommendation would be for us to continue with aggressive treatment with antibiotics. His aortic valve was not very well evaluated on the transthoracic echocardiogram. * Transesophageal echocardiogram performed today demonstrated normal left ventricular function, structurally normal mitral and tricuspid valves, a prosthetic aortic valve with no significant vegetation noted and a stable pulmonary valve. * Above discussed with ICU team Patient appears to be critically ill and supportive measures would be instituted including improving her acute renal failure. I will continue to follow with you. No changes have been noted in the last 24 hours Thank you for allowing me to participate in the care of your patient. Please don't hesitate to call if any issues arise
[2019-05-16 11:41] LABS: Bedside Glucose 83 mg/dL (70-110)
--- NOTE | 2019-05-16 11:42 | PCM.RX.CS ---
Consult Pharmacy has been consulted to manage selected antiobiotic: Vancomycin Type of Consult: Follow-up Suspected Infection: Other Prior Doses of Antibiotics Received/Current Regimen: Currently on vancomycin 1250mg IV q24h which was started yesterday 05/15/19 at 09:44 Labs: Sodium 145 mmol/L (136-145) 05/16/19 04:25 Potassium 4.4 mmol/L (3.5-5.1) 05/16/19 04:25 Chloride 116 mmol/L (98-107) H 05/16/19 04:25 Carbon Dioxide 17.0 mmol/L (21.0-32.0) L 05/16/19 04:25 Anion Gap 10 (5-15) 05/15/19 17:20 BUN 130 mg/dL (7-18) H* 05/16/19 04:25 Creatinine 2.47 mg/dL (0.55-1.02) H 05/16/19 04:25 Est GFR (MDRD) Af Amer 25 mL/min (>60) L 05/16/19 04:25 Est GFR (MDRD) Non-Af 21 mL/min (>60) L 05/16/19 04:25 BUN/Creatinine Ratio 52.6 RATIO (10-20) H 05/16/19 04:25 Glucose 213 mg/dL (74-106) H 05/16/19 04:25 Random Vancomycin 18.0 ug/mL (0.0-15.0) H 05/16/19 08:41 Microbiology: Microbiology 05/14/19 10:50 Blood Culture (Wb) - Anticubital Right Blood Culture - Preliminary No growth in 48 hours. 05/14/19 08:00 Blood Culture (Wb) - Central Line Blood Culture - Preliminary No growth in 48 hours. 05/13/19 19:40 Blood Culture (Wb) - Left Forearm Blood Culture - Final Pasteurella multocida 05/13/19 18:15 Blood Culture (Wb) - Central Line Blood Culture - Final Pasteurella multocida 05/13/19 11:40 Blood Culture (Wb) - Anticubital Left Blood Culture - Preliminary Sphingomonas paucimobilis 05/13/19 22:55 Sputum, Induced/Lukens Gram Stain - Final 05/13/19 22:55 Sputum, Induced/Lukens Respiratory Culture - Final Serratia marcescens Enterobacter cloacae complex Staphylococcus pseudintermediu 05/13/19 10:49 Urine Catheter - Catheter Urine Culture - Final Culture exhibits no growth. 05/13/19 11:54 Blood Culture (Wb) - Left Hand Blood Culture - Final Gram negative joan Weight used for dosin.6 kg Estimated Creatinine Clearance: 22 ml/min Goal Trough: 15-20 mcg/mL Pharmacy Plan for Drug Dosing: The random level this morning came back as 18.0 (drawn approx 23 hours after the last dose). It is within goal range of 15-20 so ok to give today's dose of 1250mg IV. Since this random level has already risen to 18.0 after minimal dosing, will take another level tomorrow morning and hold tomorrow's dose until that level is back, also noting that the patient's CrCl is 22 (SCr = 2.47) today. Pharmacy Service will continue to monitor and adjust dosing as required. Follow-Up Labs: Trough Vancomycin Labs to be done on [date and time ordered]: 05/17/19 10:30
--- NOTE | 2019-05-16 15:21 | NURSING ---
cooling blanket placed under patient and turned on
--- NOTE | 2019-05-16 15:59 | CPS ---
increased O2 to 100%, pt very irregular rhythm, fingers turning black, no pulse ox reading
--- NOTE | 2019-05-16 16:33 | NURSING ---
0905 Dr. San at bedside for NILDA 0908 1mg versed given 09 25 mcg fentanyl given 0918 1 mg versed given see Tech and Dr. San documentation for procedure
[2019-05-16 18:00] LABS: Bedside Glucose 22 mg/dL (70-110)
[2019-05-16] MEDS: Dextrose 50%-Water 25 GM/50 ML DISP.SYRIN IV (18:01)
[2019-05-16 18:36] LABS: Bedside Glucose 235 mg/dL (70-110)
--- NOTE | 2019-05-16 18:55 | PN.RENAL_ITS ---
Patient Problems: Active and Suspected Problems (Last Reviewed 05/13/19 @ 20:07 by Trupti Bagley DO) Acute respiratory failure with hypoxia (Acute) Atrial fibrillation with rapid ventricular response (Acute) Thrombocytopenia (Acute) Dehydration (Acute) Septic shock (Acute) Acute febrile illness (Acute) source not yet identified Rhabdomyolysis (Acute) ARF (acute renal failure) (Acute) Uremic encephalopathy (Acute) Abnormal LFTs (Acute) Metabolic acidosis (Acute) Lactic acidosis (Acute) Subjective: Patient is intubated and sedated Cannot do ROS UOP has decreased over the last 6 hours. cold extremities - Physical Exam Vitals/I&O's: Vital Signs Temp Pulse Resp BP Pulse Ox 103 F H 109 H 29 H 90/69 90 05/16/19 18:00 05/16/19 18:00 05/16/19 18:00 05/16/19 18:00 05/16/19 18:00 Oxygen Delivery Method Mechanical Ventilator Weight: 135.6 kg Body Mass Index (BMI) 45.2 Finger Stick Blood Glucose 180 Intake and Output for Last 24 Hours 05/14/19 05/15/19 05/16/19 23:59 23:59 23:59 Intake Total 2357.35 / 2462.35 3005.00 / 3033.54 1005.00 / 1005.00 Output Total 1350 / 1350 1250 / 1500 900 / 900 Balance 1007.35 / 1112.35 1755.00 / 1533.54 105.00 / 105.00 General: - - intubated and sedated Neck: Supple, No JVD Lungs: Clear to auscultation, - - On vent support Cardiovascular: Regular Rhythm, Tachycardic Abdomen: Soft, Non Tender, Hypoactive Bowel Sounds Extremities: Edema - +3 edema of LE. fingers cyanosis Lymphatic: No Cervical, Supraclavicular, or Inguinal Adenopathy Neurological: - - intubated Microbiology Past 72 Hours 05/14/19 10:50 Blood Culture (Wb) - Anticubital Right Blood Culture - Preliminary No growth in 48 hours. 05/14/19 08:00 Blood Culture (Wb) - Central Line Blood Culture - Preliminary No growth in 48 hours. 05/13/19 19:40 Blood Culture (Wb) - Left Forearm Blood Culture - Final Pasteurella multocida 05/13/19 18:15 Blood Culture (Wb) - Central Line Blood Culture - Final Pasteurella multocida 05/13/19 11:40 Blood Culture (Wb) - Anticubital Left Blood Culture - Preliminary Sphingomonas paucimobilis 05/13/19 22:55 Sputum, Induced/Lukens Gram Stain - Final 05/13/19 22:55 Sputum, Induced/Lukens Respiratory Culture - Final Serratia marcescens Enterobacter cloacae complex Staphylococcus pseudintermediu 05/13/19 10:49 Urine Catheter - Catheter Urine Culture - Final Culture exhibits no growth. 05/13/19 11:54 Blood Culture (Wb) - Left Hand Blood Culture - Final Gram negative joan Laboratory Results 05/15/19 21:40: Lactic Acid 2.5 H 05/15/19 23:01: POC Glucose 25 L* 05/15/19 23:05: Glucose 186 H 05/16/19 04:25: Sodium 145, Potassium 4.4, Chloride 116 H, Carbon Dioxide 17.0 L , BUN 130 H*, Creatinine 2.47 H, Estim Creat Clear Calc 22.11, Est GFR (MDRD) Af Amer 25 L, Est GFR (MDRD) Non-Af 21 L, BUN/Creatinine Ratio 52.6 H, Glucose 213 H, Calcium 7.3 L, Phosphorus 3.8, Albumin 1.5 L 05/16/19 04:25: Total Bilirubin 2.50 H, Direct Bilirubin 2.01 H, AST 127 H, ALT 78 H, Alkaline Phosphatase 252 H, Total Protein 5.1 L, Albumin 1.6 L, Globulin 3.5 05/16/19 04:25: Total Creatine Kinase 808 H 05/16/19 05:14: POC Glucose 118 H 05/16/19 06:25: Ammonia < 10.0 L 05/16/19 06:30: WBC 28.4 H, RBC 4.03 L, Hgb 12.4, Hct 36.4 L, MCV 90.3, MCH 30.8, MCHC 34.1, RDW Std Deviation 55.6 H, RDW Coeff of Pierre 16.8 H, Plt Count 16 L*, Immature Gran % (Auto) 4.500 H, Neut % (Auto) 86.2 H, Lymph % (Auto) 5.6 L, Bollinger % (Auto) 3.2, Eos % (Auto) 0.0, Baso % (Auto) 0.5, Absolute Neuts (auto) 24.5 H, Absolute Lymphs (auto) 1.59, Nucleated RBC % 0.2, Differential Comment SCANNED, Diff Path Review May dave, Platelet Estimate MKD 05/16/19 06:40: PT 15.6 H, INR 1.3, APTT 30.8, Fibrinogen 404 05/16/19 08:41: Random Vancomycin 18.0 H 05/16/19 11:30: POC Glucose 83 05/16/19 17:56: POC Glucose 22 L* 05/16/19 18:31: POC Glucose 235 H Current Medications Acetaminophen (Tylenol Liquid) 650 mg NG Q6 [facility] Last Admin: 05/16/19 18:01 Dose: 650 mg Documented by: Calamine/Phenol (Calmoseptine Ointment) 1 applic TOPICAL TID [facility]; Protocol Last Admin: 05/16/19 13:27 Dose: 1 applicatio Documented by: Chlorhexidine Gluconate () 1 each TOPICAL DAILY [facility] Last Admin: 05/16/19 05:13 Dose: 1 each Documented by: Chlorhexidine Gluconate () 15 ml PO BID [facility] Last Admin: 05/16/19 10:00 Dose: 15 ml Documented by: Dextrose (D50w Syringe) 0 gm IV X1 PRN; Protocol PRN Reason: Hypoglycemia Last Admin: 05/16/19 18:01 Dose: 25 gm Documented by: Famotidine (Pepcid) 20 mg PO DAILY [facility] Last Admin: 05/16/19 10:00 Dose: 20 mg Documented by: Glucagon () 1 mg IM .X1 PRN PRN Reason: Hypoglycemia Vancomycin IV Pharmacy to Dose (1 ea/ Sodium Chloride) 500 mls @ 250 mls/hr IV PRN PRN; Protocol PRN Reason: Rx to Dose Enteral Nutritional Formula (Vital Af 1.2 Cesar Liquid) 1,000 mls @ 20 mls/hr GT .Q48H [facility] Last Admin: 05/16/19 09:53 Dose: Not Given Documented by: Vancomycin HCl 1,250 mg/ (Sodium Chloride) 275 mls @ 167 mls/hr IV Q24H [facility] Last Infusion: 05/16/19 13:04 Dose: Infused Documented by: Meropenem 1 gm/ Sodium (Chloride) 120 mls @ 33 mls/hr IV Q12 PHANI Last Infusion: 05/16/19 13:43 Dose: Infused Documented by: Amiodarone HCl 360 mg/ (Dextrose) 200 mls @ 16.667 mls/hr CONT INF .Q12H [facility] Last Admin: 05/16/19 09:54 Dose: 0.5 mg/min, 16.7 mls/hr Documented by: Insulin Human Lispro (Humalog Kwikpen (Bkc)) 0 unit SC Q6 PHANI; Protocol Last Admin: 05/16/19 18:02 Dose: Not Given Documented by: Nystatin (Mycostatin Powder) 1 applic TOPICAL TID PHANI; Protocol Last Admin: 05/16/19 13:26 Dose: 1 applicatio Documented by: Sodium Chloride () 10 - 40 ml IV UD PRN PRN Reason: Multilumen/Santos Flush Last Admin: 05/15/19 21:48 Dose: 30 ml Documented by: Sodium Chloride (0.9% Nacl (Sterile) Posiflush) 10 - 40 ml IV UD PRN PRN Reason: Port access or dressing change Sodium Chloride () 10 - 40 ml IV UD PRN PRN Reason: SALINE FLUSH Last Admin: 05/16/19 09:52 Dose: 40 ml Documented by: Medical Necessity - Tobacco Use Smoking Status: Former smoker - she quit in 2018 but prior to that she smoked 1- 1/2 packs of cigarettes daily for at least 40 years. Tobacco Use: Cigarettes Assessment/Plan All Active Problems (Last Reviewed 05/13/19 @ 20:07 by Trupti Bagley DO) Acute respiratory failure with hypoxia (Acute) Atrial fibrillation with rapid ventricular response (Acute) Thrombocytopenia (Acute) Dehydration (Acute) Septic shock (Acute) Acute febrile illness (Acute) Rhabdomyolysis (Acute) ARF (acute renal failure) (Acute) Uremic encephalopathy (Acute) Abnormal LFTs (Acute) Metabolic acidosis (Acute) Lactic acidosis (Acute) Cat bite involving extremity (Resolved) Cellulitis (Resolved) Dysphagia (Resolved) Ulcer of right lower leg (Resolved) 1. Acute kidney injury. No prior history of CKD or prior SCr for comparison. ALBERTO is likely due to ischemic ATN related to septic shock. There is also component of ALBERTO from effective volume depletion. Urine output has responded to volume resuscitation.No RBC or significant protein in the urine to suggest acute GN. No hydronephrosis on abdominal CT. She is not oliguric and renal function has remained stable in the past 48 hrs despite her critical illness and hemodynamic instability.BUN is rising UOP has dropped for the last 6 hours. Pt also has cold extremities suggesting hemodynamic shock. 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 Keep MAP>65. Avoid nephrotoxins such as NSAID/IV contrast. Continue fluid boluses as needed. There is no current evidence of volume overload. Will follow closely. 2- Normal AG MA. likely from ALBERTO. Will monitor for now Check ABG in am 2. Septic shock. Has GNB blood stream infection. Off pressor currently. Antibiotics as per hospitalist. Keep MAP > 65 3. Acute hypoxic respiratory failure. Has pneumonia. Antibiotic as per hospitalist. Vent management as per molded goods controls operator Renal team will continue to follow Please call if any question Mateus Cevallos MD
--- NOTE | 2019-05-16 19:30 | NURSING ---
Pt's peripheral skin assessed:diane feet are white and mottled, very delayed cap refill; diane hands are very dark blue/purple from fingertips up to 2nd knuckles w/LH darker than RH and no cap refill to fingers. Per reporting RN, all physicians are aware of current condition.
--- NOTE | 2019-05-16 19:55 | NURSING ---
Unable to complete CAM-ICU assessment d/t pt's condition.
--- NOTE | 2019-05-16 21:40 | NURSING ---
Pt repositioned onto Rt side, RR dropped suddenly from 36 to 20. Pt had delayed decerebrate posturing following turn w/diane arms, RUE>LUE. RR returned to 30 after about 5 minutes from turning.
[2019-05-16] MEDS: Insulin Lispro 100 UNIT/ML INSULN.PEN SC (23:27)
[2019-05-16 23:35] LABS: Bedside Glucose 188 mg/dL (70-110)
[2019-05-17] VITALS (56 sets, daily range): BP systolic 55–154; BP diastolic 10–139; PULSE 79–131; RESP 12–48; TEMP 38.1–39.7; O2SAT 89–100
--- NOTE | 2019-05-17 02:50 | NURSING ---
Assisted RT w/drawing ABG from rt brachial by using doppler.
[2019-05-17 03:06] LABS: Base Excess -12 mmol/L (-2 to +2); Bicarbonate 13.1 mmol/L (22-26); Blood Gas Specimen Type ART; FI02 100; Mode A-C; O2 Delivery Device Vent; PEEP 5; PO2 392 mmHG (75-100); RR 12; SITE R Brachial; SO2 100 % (95-99); Time Given 250; Total Carbon Dioxide 14 mmol/L; Vt 450; pCO2 21.1 mmHg (35-45)
--- NOTE | 2019-05-17 04:20 | NURSING ---
Pt's peripheral skin assessment: blake feet are white, cold w/minimal cap refill and no pedal/post tib pulses to be doppled, BLE are pale and mottled over knees. Blake hands are discolored up to 3rd knuckle w/discoloration into palms, no cap refill and no radial pulses to be doppled, w/RH worse than LH.
[2019-05-17] MEDS: 0.9% Saline Lock 10 ML Syringe IV (05:11)
[2019-05-17] MEDS: Insulin Lispro 100 UNIT/ML INSULN.PEN SC ×3 (05:16→18:19)
[2019-05-17] MEDS: Menthol/Lanolin/Calamine/Znox 113 GM Tube 1 APPLIC TOPICAL ×2 (05:16→13:59)
[2019-05-17] MEDS: Nystatin Powder 15gm Bottle 1 APPLIC TOPICAL ×2 (05:16→13:59)
[2019-05-17] MEDS: Acetaminophen 650 MG/20 ML UDC NG ×3 (05:17→18:19)
[2019-05-17 05:31] LABS: Bedside Glucose 180 mg/dL (70-110)
[2019-05-17 05:48] LABS: Hematocrit 40.6 % (37-47); Hemoglobin 13.4 g/dL (12.0-15.0); Mean Corpuscular Hgb 30.7 pg (27.0-32.0); Mean Corpuscular Volume 92.9 fL (81-99); POSITIVE COUNT YES; POSITIVE DIFFERENTIAL YES; POSITIVE MORPHOLOGY YES; RBC Distribution Width CV 17.2 % (11.6-14.6); RBC Distribution Width SD 58.4 fl (35.1-43.9); Red Blood Count 4.37 M/mm3 (4.2-5.4)
[2019-05-17 05:59] LABS: Differential Indicated MANUAL DIFF; Platelet Count 28 K/mm3 (150-450)
[2019-05-17 06:01] LABS: White Blood Count 27.8 K/mm3 (4.4-11.0)
[2019-05-17 06:02] LABS: AST(SGOT) 162 U/L (15-37); Alanine Aminotransfer ALT/SGPT 83 U/L (13-56); Albumin, Serum 1.6 g/dL (3.2-5.0); Alkaline Phosphatase 208 U/L (45-117); Bilirubin, Direct 1.97 mg/dL (0.00-0.30); Globulin 3.8 g/dL (2.2-4.2); Protein, Total 5.4 g/dL (6.4-8.2)
[2019-05-17 06:16] LABS: ALB/GLOB Ratio 0.4 RATIO (0.9-2.4); AST(SGOT) 163 U/L (15-37); Alanine Aminotransfer ALT/SGPT 82 U/L (13-56); Albumin, Serum 1.6 g/dL (3.2-5.0); Alkaline Phosphatase 206 U/L (45-117); Anion Gap 15 (5-15); BUN 164 mg/dL (7-18); BUN/Creat Ratio 47.4 RATIO (10-20); Calcium,Total 7.2 mg/dL (8.5-10.1); Chloride 117 mmol/L (98-107); Creatinine, Serum 3.46 mg/dL (0.55-1.02); EST Glomerular Filtration Rate 14 mL/min (>60); Est Glom Filt Rate - Afr Amer 17 mL/min (>60); Estimated Creatinine Clearance 15.78 ml/min; Globulin 3.8 g/dL (2.2-4.2); Glucose 189 mg/dL (74-106); Potassium 4.7 mmol/L (3.5-5.1); Protein, Total 5.4 g/dL (6.4-8.2); Sodium Level 146 mmol/L (136-145)
--- NOTE | 2019-05-17 06:45 | PN_ITS ---
Patient Problems: Active and Suspected Problems (Last Reviewed 05/13/19 @ 20:07 by Trupti Bagley DO) Acute respiratory failure with hypoxia (Acute) Atrial fibrillation with rapid ventricular response (Acute) Thrombocytopenia (Acute) Dehydration (Acute) Septic shock (Acute) Acute febrile illness (Acute) source not yet identified Rhabdomyolysis (Acute) ARF (acute renal failure) (Acute) Uremic encephalopathy (Acute) Abnormal LFTs (Acute) Metabolic acidosis (Acute) Lactic acidosis (Acute) Subjective: Day #5 ventilator Day #5 left IJ Day #5 antibiotics-meropenem and vancomycin All events the past 24 hours of been reviewed. She remains intubated and mechanically ventilated. Unresponsive to calling her name. No family present. Continues to have fevers. T-max since midnight is 101.9. Heart rate ranges from 10 6-1 15 since midnight. Continues to be in atrial fibrillation. Now requiring a 60% FiO2 to maintain appropriate saturation. Respiratory rate is increased in the high 30s Fluid balance on 05/16/2019 was +412 with 1000 cc urine output. Fluid balance since admission is +8000 All lab was personally reviewed. Hemoglobin is stable at 13.4. Platelets are 28,000 today. Sodium is 146 and the serum bicarb is only 14 today. Calcium is 4.7. The BUN is 164 with a creatinine of 3.46 up from 2.47 on 05/16/2019. LFTs continue to be abnormal. Albumin is 1.6 today. Blood sugar record was reviewed. There was a low blood sugar at 22 on 05/16/2019 at 6 PM. Blood sugar since then have ranged from 1 80-35. ABG this morning shows a pH of 7.4, PCO2 of 21 and a PO2 of 392 that was on 100% FiO2. Sputum is growing Serratia marcescens, Enterobacter cloaca high and Staphylococcus pseudo-intermedius. Blood cultures are positive for Pasteurella multocida and Sphingomonas Paucimobilis. NILDA showed normal left ventricular size, ejection fraction of 55%, stable appearing bioprosthetic aortic valve, +1 MR and no obvious vegetations. Chest x-ray on 05/16/2019 showed her to be rotated to the left. The left costophrenic angle is blunted-possible infiltrate, pleural effusion and/or atelectasis. - Physical Exam Vitals/I&O's: Vital Signs Temp Pulse Resp BP Pulse Ox 101 F H 114 H 40 H 101/91 H 100 05/17/19 06:00 05/17/19 06:00 05/17/19 06:00 05/17/19 06:00 05/17/19 05:08 Oxygen Delivery Method Mechanical Ventilator Weight: 298 lb 15.149 oz Body Mass Index (BMI) 45.2 Finger Stick Blood Glucose 180 Intake and Output for Last 24 Hours 05/15/19 05/16/19 05/17/19 23:59 23:59 23:59 Intake Total 3005.00 / 3033.54 1412.11 / 1414.94 283.79 / 283.79 Output Total 1250 / 1500 1000 / 1000 125 / 125 Balance 1755.00 / 1533.54 412.11 / 414.94 158.79 / 158.79 General: - - Intubated and mechanically ventilated. Unresponsive to calling her name. Having myoclonic jerking but only of her head with any stimulus. HEENT: Atraumatic, - - The pupils are dilated today and mildly reactive to light. Reflexes are present bilaterally. Neck: No Nodes, Trachea Midline Lungs: Clear to auscultation Cardiovascular: Normal S1, Normal S2, No murmurs, No Gallop, Tachycardic, - - Atrial fibrillation on telemetry Abdomen: Soft, Non-Distended, Hypoactive Bowel Sounds, Obese, - - No guarding with palpation, no grimacing with palpation Extremities: No clubbing, Cyanosis - The fingers are nearly black due to hypoperfusion. The feet and toes are white. All extremities are cold to the touch., Edema, - - The extremities are very cold to the touch although the core temp is high and she is on a cooling blanket. The fingers are cyanotic. Toes are blanched. wounds on the right foot are stable with no evidence of infection. Skin: No breakdown Neurological: - - the pupils are dilated and only minimally responsive to light. she has BL corneal reflexes. No respnse to babinski. Not spontaneously moving the extremities. She is having myoclonic jerking of the head if you touch or forehead or attempt to open her eyes Microbiology Past 72 Hours 05/14/19 10:50 Blood Culture (Wb) - Anticubital Right Blood Culture - Preliminary No growth in 48 hours. 05/14/19 08:00 Blood Culture (Wb) - Central Line Blood Culture - Preliminary No growth in 48 hours. 05/13/19 19:40 Blood Culture (Wb) - Left Forearm Blood Culture - Final Pasteurella multocida 05/13/19 18:15 Blood Culture (Wb) - Central Line Blood Culture - Final Pasteurella multocida 05/13/19 11:40 Blood Culture (Wb) - Anticubital Left Blood Culture - Preliminary Sphingomonas paucimobilis 05/13/19 22:55 Sputum, Induced/Lukens Gram Stain - Final 05/13/19 22:55 Sputum, Induced/Lukens Respiratory Culture - Final Serratia marcescens Enterobacter cloacae complex Staphylococcus pseudintermediu 05/13/19 10:49 Urine Catheter - Catheter Urine Culture - Final Culture exhibits no growth. 05/13/19 11:54 Blood Culture (Wb) - Left Hand Blood Culture - Final Gram negative joan Laboratory Results 05/16/19 04:25: Total Bilirubin 2.50 H, Direct Bilirubin 2.01 H, AST 127 H, ALT 78 H, Alkaline Phosphatase 252 H, Total Protein 5.1 L, Albumin 1.6 L, Globulin 3.5 05/16/19 04:25: Total Creatine Kinase 808 H 05/16/19 06:25: Ammonia < 10.0 L 05/16/19 06:30: Differential Comment SCANNED, Diff Path Review November, Platelet Estimate MKD 05/16/19 06:40: PT 15.6 H, INR 1.3, APTT 30.8, Fibrinogen 404 05/16/19 08:41: Random Vancomycin 18.0 H 05/16/19 11:30: POC Glucose 83 05/16/19 17:56: POC Glucose 22 L* 05/16/19 18:31: POC Glucose 235 H 05/16/19 23:25: POC Glucose 188 H 05/17/19 02:56: Specimen Type ART, Sample Site R Brachial, pH 7.40, Bicarbonate Actual 13.1 L, POC Total CO2 14, Base Excess -12 L, O2 Saturation 100 H, O2 % 100, ABG pCO2 21.1 L, ABG pO2 392 H*, Respiration Rate 12, O2 Delivery Device Vent, Minute Volume 18.00, Vent Mode A-C, Tidal Volume 450, POC PEEP 5, Blood Gas Notified Whom TELLO CHAN, Blood Gas Notified Time 250 05/17/19 05:00: Total Bilirubin 2.90 H, Direct Bilirubin 1.97 H, AST 162 H, ALT 83 H, Alkaline Phosphatase 208 H, Total Protein 5.4 L, Albumin 1.6 L, Globulin 3.8 05/17/19 05:00: WBC Pending, RBC 4.37, Hgb 13.4, Hct 40.6, MCV 92.9, MCH 30.7, MCHC 33.0, RDW Std Deviation 58.4 H, RDW Coeff of Pierre 17.2 H, Plt Count 28 L*, Immature Gran % (Auto) INSTRUMENT MAN, Neut % (Auto) INSTRUMENT MAN, Lymph % (Auto) INSTRUMENT MAN, [place] % (Auto) INSTRUMENT MAN, Eos % (Auto) INSTRUMENT MAN, Baso % (Auto) INSTRUMENT MAN, Absolute Neuts (auto) Pending, Absolute Lymphs (auto) Pending, Nucleated RBC % INSTRUMENT MAN 05/17/19 05:00: Sodium 146 H, Potassium 4.7, Chloride 117 H, Carbon Dioxide 14.0 L, Anion Gap 15, BUN 164 H*, Creatinine 3.46 H, Estim Creat Clear Calc 15.78, Est GFR (MDRD) Af Amer 17 L, Est GFR (MDRD) Non-Af 14 L, BUN/Creatinine Ratio 47.4 H, Glucose 189 H, Calcium 7.2 L, Total Bilirubin 2.70 H, AST 163 H, ALT 82 H, Alkaline Phosphatase 206 H, Total Protein 5.4 L, Albumin 1.6 L, Globulin 3.8, Albumin/Globulin Ratio 0.4 L 05/17/19 05:06: POC Glucose 180 H Current Medications Acetaminophen (Tylenol Liquid) 650 mg NG Q6 [facility] [place] Last Admin: 05/17/19 05:17 Dose: 650 mg Documented by: Calamine/Phenol (Calmoseptine Ointment) 1 applic TOPICAL TID PHANI; Protocol Last Admin: 05/17/19 05:16 Dose: 1 applicatio Documented by: Chlorhexidine Gluconate () 1 each TOPICAL DAILY [facility] [place] Last Admin: 05/16/19 05:13 Dose: 1 each Documented by: Chlorhexidine Gluconate () 15 ml PO BID [facility] [place] Last Admin: 05/16/19 21:28 Dose: 15 ml Documented by: Dextrose (D50w Syringe) 0 gm IV X1 PRN; Protocol PRN Reason: Hypoglycemia Last Admin: 05/16/19 18:01 Dose: 25 gm Documented by: Famotidine (Pepcid) 20 mg PO DAILY PHANI Last Admin: 05/16/19 10:00 Dose: 20 mg Documented by: Glucagon () 1 mg IM .X1 PRN PRN Reason: Hypoglycemia Vancomycin IV Pharmacy to Dose (1 ea/ Sodium Chloride) 500 mls @ 250 mls/hr IV PRN PRN; Protocol PRN Reason: Rx to Dose Enteral Nutritional Formula (Vital Af 1.2 Cesar Liquid) 1,000 mls @ 20 mls/hr GT .Q48H [facility] Last Admin: 05/16/19 09:53 Dose: Not Given Documented by: Vancomycin HCl 1,250 mg/ (Sodium Chloride) 275 mls @ 167 mls/hr IV Q24H [facility] [place] Last Infusion: 05/16/19 13:04 Dose: Infused Documented by: Meropenem 1 gm/ Sodium (Chloride) 120 mls @ 33 mls/hr IV Q12 [facility] Last Infusion: 05/17/19 01:09 Dose: Infused Documented by: Amiodarone HCl 360 mg/ (Dextrose) 200 mls @ 16.667 mls/hr CONT INF .Q12H [facility] Last Infusion: 05/17/19 05:34 Dose: 0.5 mg/min, 16.7 mls/hr Documented by: Norepinephrine Bitartrate 8 mg (/ Sodium Chloride) 250 mls @ 9.375 mls/hr CONT INF .[id number] [facility]ANI; Protocol Last Titration: 05/17/19 06:00 Dose: 7 mcg/min, 13.1 mls/hr Documented by: Insulin Human Lispro (Humalog Kwikpen (Bkc)) 0 unit SC Q6 [facility]; Protocol Last Admin: 05/17/19 05:16 Dose: 1 u Documented by: Nystatin (Mycostatin Powder) 1 applic TOPICAL TID PHANI; Protocol Last Admin: 05/17/19 05:16 Dose: 1 applicatio Documented by: Sodium Chloride () 10 - 40 ml IV UD PRN PRN Reason: Multilumen/Santos Flush Last Admin: 05/17/19 05:11 Dose: 20 ml Documented by: Sodium Chloride (0.9% Nacl (Sterile) Posiflush) 10 - 40 ml IV UD PRN PRN Reason: Port access or dressing change Sodium Chloride () 10 - 40 ml IV UD PRN PRN Reason: SALINE FLUSH Last Admin: 05/16/19 09:52 Dose: 40 ml Documented by: Medical Necessity - Tobacco Use Smoking Status: Former smoker - she quit in 2018 but prior to that she smoked 1- 1/2 packs of cigarettes daily for at least 40 years. Tobacco Use: Cigarettes Assessment/Plan All Active Problems (Last Reviewed 05/13/19 @ 20:07 by Trupti Bagley DO) Acute respiratory failure with hypoxia (Acute) Atrial fibrillation with rapid ventricular response (Acute) Thrombocytopenia (Acute) Dehydration (Acute) Septic shock (Acute) Acute febrile illness (Acute) Rhabdomyolysis (Acute) ARF (acute renal failure) (Acute) Uremic encephalopathy (Acute) Abnormal LFTs (Acute) Metabolic acidosis (Acute) Lactic acidosis (Acute) Cat bite involving extremity (Resolved) Cellulitis (Resolved) Dysphagia (Resolved) Ulcer of right lower leg (Resolved) Day #5 antibiotics-vancomycin and Merrem Day # 5 of the LIJ Day #5 on the vent Impressions 1. septic shock secondary to suspected aspiration pneumonia with BC's + for? Pasteurella multocida and Sphingomonas Paucimobilis. Blood cultures from 05/14/2019 have no growth in 48 hours. Sputum culture is positive for Serratia marcescens, Enterobacter cloaca and Staphylococcus pseudo-intermedius. Dr. Alarcon is following. 2. acute hypoxic respiratory failure - intubated and mechanically ventilated. Continue ventilator support. RR high due to metabolic acidosis due to ARF 3. Atrial fibrillation with rapid ventricular response - HR is much better controlled with amiodarone. Continue amiodarone 4. Non-oliguric Acute renal failure-etiology unknown, more likely than not due to ATN from sepsis and dehydration. CREAT is increasing and urine OP is decreased overnight. Will discuss with Dr. Calixto 5. Severe thrombocytopenia- likely due to GM negative sepsis and also uremia. Transfuse PLT's as needed to keep the PLT count > 10. Has been transfused with 2 units of pheresis platelets since admission. Zosyn was discontinued and this may help with thrombocytopenia. 6. Uremic/toxic encephalopathy - will discuss with Dr. Calixto possible dialysis but, she is currently on Levophed at 7. Started at the recommendation of nephrology to help improve blood flow 7. Rhabdomyolysis- CPK has been trending down 8. hx of anxiety/depression and chronic benzo and narcotic dependence - Currently not on any sedation and she is unresponsive 9. History of a bioprosthetic aortic valve replacement. Appears stable with no vegetations on NILDA done 05/16/2019 10. Hypertension, hyperlipidemia, obstructive sleep apnea (not compliant with PAP therapy), GERD, chronic back pain, morbid obesity complicate care, management and prognosis ... she is historically not compliant with physician follow up. Hepatitis panel is negative Continue Merrem and Vanco Prognosis is poor. REnal function is declining. Pupils are now dilated and minimally responsive. Continues to have high fevers despite antibiotics and negative BC's.......central? CT scan X 2 shows no acute abnormality. Will order and EEG - r/o non-convulsive seizures and assess brain function....it will be slow due to uremia. Discussed on ICU rounds with Dr. Llanes and the ICU team. REcheck lab in the AM Code Visit Inpatient E&M: 89808 Subs Hosp L3
--- NOTE | 2019-05-17 06:49 | PCM.PN.INT ---
Subjective: The patient was seen and examined at the bedside this morning. Events from the last 24 hours have been reviewed. The patient remains febrile with a T-max over the last 24 hours of 105.3 ?F. The patient remains in atrial fibrillation with a rapid ventricular rate. FiO2 requirement is currently 60%. Platelet count this morning is up to 28,000. Serum bicarbonate continues to drop. BUN and creatinine are worsening. The patient is currently documented to be overall net +8 L for the admission. The patient remains on low-dose levophed, which is being titrated to a systolic blood pressure. Transesophageal echocardiogram completed at the bedside yesterday morning revealed normal LV size with normal ejection fraction and a stable appearing bioprosthetic aortic valve apparatus. No obvious vegetations were seen. Objective: The patient's most recent lab work, culture data and imaging studies have all been personally reviewed. Initial CT head revealed no acute intracranial process. CT abdomen/pelvis revealed colonic diverticulosis without obstruction along with incidental bilateral lower lung infiltrates. Surface echocardiogram revealed normal LV size and function with an ejection fraction of 50%. Initial blood cultures dated May 13 were positive for Sphingomonas Paucimobilis. Additional blood cultures from May 13 were positive for Pasteurella. Sputum culture was positive for Serratia marcescens, Enterobacter cloacae and Staphylococcus. General: - - Remains intubated and mechanically ventilated. No sedation is currently being utilized. The patient is quite ill in appearance. HEENT: Atraumatic, PERRLA, Normocephalic Oral: Dry Mucosa, - - Bloody crusting of oropharyngeal mucosa Neck: Supple, No Nodes, Trachea Midline, - - Stable appearing central venous catheter Lungs: No rhonchi, No wheeze, No rales, Diminished, Tachypneic Cardiovascular: Normal S1, Normal S2, Irregular Rate, Tachycardic Abdomen: Soft, Non Tender, Hypoactive Bowel Sounds, Obese Extremities: No clubbing, Cool, Cyanosis, Diminished Peripheral Pulses, - - Distal fingers are dusky and cyanotic in appearance. Skin: - - No significant interval change from previous. Musculoskeletal: No Muscle Wasting Lymphatic: No Cervical, Supraclavicular, or Inguinal Adenopathy Neurological: - - No significant change neurologically from previous. The patient does appear to be somewhat less responsive to noxious stimulation today. Vital Signs Temp Pulse Resp BP Pulse Ox 101 F H 114 H 40 H 101/91 H 100 10//19 06:00 05/17/19 06:00 05/17/19 06:00 05/17/19 06:00 05/17/19 05:08 Oxygen Delivery Method Mechanical Ventilator Weight: 298 lb 15.149 oz Body Mass Index (BMI) 45.2 Finger Stick Blood Glucose 180 Intake and Output for Last 24 Hours 05/15/19 05/16/19 05/17/19 23:59 23:59 23:59 Intake Total 3005.00 / 3033.54 1412.11 / 1414.94 283.79 / 283.79 Output Total 1250 / 1500 1000 / 1000 125 / 125 Balance 1755.00 / 1533.54 412.11 / 414.94 158.79 / 158.79 Labs (Last 48 Hours) 05/13/19 05/13/19 05/14/19 12:15 17:55 08:00 WBC 14.5 H RBC 4.34 Hgb 13.3 Hct 40.7 MCV 93.8 MCH 30.6 MCHC 32.7 RDW Std Deviation 57.0 H RDW Coeff of Pierre 16.3 H Plt Count 20 L* MPV TNP Immature Gran % (Auto) 2.100 H Neut % (Auto) 87.5 H Lymph % (Auto) 3.9 L [place] % (Auto) 5.4 Eos % (Auto) 1.0 Baso % (Auto) 0.1 Absolute Neuts (auto) 12.7 H Absolute Lymphs (auto) 0.56 L Nucleated RBC % 0.3 Differential Comment Diff Path Review Reviewed Platelet Estimate Crenated Cell 1+ Haptoglobin 160 PT INR APTT Fibrinogen Specimen Type Sample Site pH Bicarbonate Actual POC Total CO2 Base Excess O2 Saturation O2 % ABG pCO2 ABG pO2 Gennaro Test VBG pH VBG pO2 VBG O2 Sat (Calc) VBG O2 Content VBG Base Excess POC Mix VBG pCO2 Pt Tmp Respiration Rate O2 Delivery Device Minute Volume Vent Mode Tidal Volume POC PEEP Blood Gas Notified Whom Blood Gas Notified Time Sodium Potassium Chloride Carbon Dioxide Anion Gap BUN Creatinine Estim Creat Clear Calc Est GFR (MDRD) Af Amer Est GFR (MDRD) Non-Af BUN/Creatinine Ratio Glucose Lactic Acid Calcium Phosphorus Total Bilirubin Direct Bilirubin AST ALT Alkaline Phosphatase Ammonia Total Creatine Kinase Total Protein Albumin Globulin Albumin/Globulin Ratio Random Vancomycin Hepatitis A IgM Ab Negative Hep Bs Antigen Negative Hep B Core IgM Ab Negative POC Glucose 05/14/19 05/15/19 05/15/19 17:20 05:15 11:35 WBC RBC Hgb Hct MCV MCH MCHC RDW Std Deviation RDW Coeff of Pierre Plt Count MPV Immature Gran % (Auto) Neut % (Auto) Lymph % (Auto) [place] % (Auto) Eos % (Auto) Baso % (Auto) Absolute Neuts (auto) Absolute Lymphs (auto) Nucleated RBC % Differential Comment Diff Path Review Reviewed Reviewed Platelet Estimate Crenated Cell Haptoglobin PT INR APTT Fibrinogen Specimen Type Sample Site pH Bicarbonate Actual POC Total CO2 Base Excess O2 Saturation O2 % ABG pCO2 ABG pO2 Gennaro Test VBG pH VBG pO2 VBG O2 Sat (Calc) VBG O2 Content VBG Base Excess POC Mix VBG pCO2 Pt Tmp Respiration Rate O2 Delivery Device Minute Volume Vent Mode Tidal Volume POC PEEP Blood Gas Notified Whom Blood Gas Notified Time Sodium Potassium Chloride Carbon Dioxide Anion Gap BUN Creatinine Estim Creat Clear Calc Est GFR (MDRD) Af Amer Est GFR (MDRD) Non-Af BUN/Creatinine Ratio Glucose Lactic Acid Calcium Phosphorus Total Bilirubin Direct Bilirubin AST ALT Alkaline Phosphatase Ammonia Total Creatine Kinase Total Protein Albumin Globulin Albumin/Globulin Ratio Random Vancomycin Hepatitis A IgM Ab Hep Bs Antigen Hep B Core IgM Ab POC Glucose 131 H 05/15/19 05/15/19 05/15/19 16:37 17:20 17:20 WBC RBC Hgb Hct MCV MCH MCHC RDW Std Deviation RDW Coeff of Pierre Plt Count MPV Immature Gran % (Auto) Neut % (Auto) Lymph % (Auto) [place] % (Auto) Eos % (Auto) Baso % (Auto) Absolute Neuts (auto) Absolute Lymphs (auto) Nucleated RBC % Differential Comment Diff Path Review Platelet Estimate Crenated Cell Haptoglobin PT INR APTT Fibrinogen Specimen Type VANESSA Sample Site pH Bicarbonate Actual POC Total CO2 Base Excess O2 Saturation O2 % 100 ABG pCO2 ABG pO2 Gennaro Test VBG pH 7.29 L VBG pO2 32 VBG O2 Sat (Calc) 56 VBG O2 Content 17 L VBG Base Excess -11 L POC Mix VBG pCO2 Pt Tmp 32.8 L Respiration Rate 12 O2 Delivery Device Vent Minute Volume Vent Mode Tidal Volume 450 POC PEEP 5 Blood Gas Notified Whom [facility] Blood Gas Notified Time 1636 Sodium 147 H Potassium 3.7 Chloride 120 H Carbon Dioxide 17.0 L Anion Gap 10 BUN 122 H* Creatinine 2.47 H Estim Creat Clear Calc 22.11 Est GFR (MDRD) Af Amer 25 L Est GFR (MDRD) Non-Af 21 L BUN/Creatinine Ratio 49.4 H Glucose 117 H Lactic Acid 2.8 H Calcium 7.8 L Phosphorus Total Bilirubin Direct Bilirubin AST ALT Alkaline Phosphatase Ammonia Total Creatine Kinase Total Protein Albumin Globulin Albumin/Globulin Ratio Random Vancomycin Hepatitis A IgM Ab Hep Bs Antigen Hep B Core IgM Ab POC Glucose 05/15/19 05/15/19 05/15/19 17:20 17:20 17:54 WBC 12.5 H RBC 4.29 Hgb 13.0 Hct 39.4 MCV 91.8 MCH 30.3 MCHC 33.0 RDW Std Deviation 56.7 H RDW Coeff of Pierre 16.8 H Plt Count 15 L* MPV Immature Gran % (Auto) Neut % (Auto) Lymph % (Auto) [place] % (Auto) Eos % (Auto) Baso % (Auto) Absolute Neuts (auto) Absolute Lymphs (auto) Nucleated RBC % Differential Comment Diff Path Review May foll Platelet Estimate Crenated Cell Haptoglobin PT INR APTT Fibrinogen Specimen Type ART Sample Site R Radial pH 7.46 H Bicarbonate Actual 15.4 L POC Total CO2 16 Base Excess -8 L O2 Saturation 100 H O2 % 100 ABG pCO2 21.7 L ABG pO2 227 H Gennaro Test POS VBG pH VBG pO2 VBG O2 Sat (Calc) VBG O2 Content VBG Base Excess POC Mix VBG pCO2 Pt Tmp Respiration Rate 12 O2 Delivery Device Vent Minute Volume Vent Mode A-C Tidal Volume 450 POC PEEP 5 Blood Gas Notified Whom [facility]OS[facility] Blood Gas Notified Time 1745 Sodium Potassium Chloride Carbon Dioxide Anion Gap BUN Creatinine Estim Creat Clear Calc Est GFR (MDRD) Af Amer Est GFR (MDRD) Non-Af BUN/Creatinine Ratio Glucose Lactic Acid Calcium Phosphorus Total Bilirubin Direct Bilirubin AST ALT Alkaline Phosphatase Ammonia Total Creatine Kinase 1253 H Total Protein Albumin Globulin Albumin/Globulin Ratio Random Vancomycin Hepatitis A IgM Ab Hep Bs Antigen Hep B Core IgM Ab POC Glucose 05/15/19 05/15/19 05/15/19 21:40 23:01 23:05 WBC RBC Hgb Hct MCV MCH MCHC RDW Std Deviation RDW Coeff of Pierre Plt Count MPV Immature Gran % (Auto) Neut % (Auto) Lymph % (Auto) [place] % (Auto) Eos % (Auto) Baso % (Auto) Absolute Neuts (auto) Absolute Lymphs (auto) Nucleated RBC % Differential Comment Diff Path Review Platelet Estimate Crenated Cell Haptoglobin PT INR APTT Fibrinogen Specimen Type Sample Site pH Bicarbonate Actual POC Total CO2 Base Excess O2 Saturation O2 % ABG pCO2 ABG pO2 Gennaro Test VBG pH VBG pO2 VBG O2 Sat (Calc) VBG O2 Content VBG Base Excess POC Mix VBG pCO2 Pt Tmp Respiration Rate O2 Delivery Device Minute Volume Vent Mode Tidal Volume POC PEEP Blood Gas Notified Whom Blood Gas Notified Time Sodium Potassium Chloride Carbon Dioxide Anion Gap BUN Creatinine Estim Creat Clear Calc Est GFR (MDRD) Af Amer Est GFR (MDRD) Non-Af BUN/Creatinine Ratio Glucose 186 H Lactic Acid 2.5 H Calcium Phosphorus Total Bilirubin Direct Bilirubin AST ALT Alkaline Phosphatase Ammonia Total Creatine Kinase Total Protein Albumin Globulin Albumin/Globulin Ratio Random Vancomycin Hepatitis A IgM Ab Hep Bs Antigen Hep B Core IgM Ab POC Glucose 25 L* 05/16/19 05/16/19 05/16/19 04:25 04:25 04:25 WBC RBC Hgb Hct MCV MCH MCHC RDW Std Deviation RDW Coeff of Pierre Plt Count MPV Immature Gran % (Auto) Neut % (Auto) Lymph % (Auto) [place] % (Auto) Eos % (Auto) Baso % (Auto) Absolute Neuts (auto) Absolute Lymphs (auto) Nucleated RBC % Differential Comment Diff Path Review Platelet Estimate Crenated Cell Haptoglobin PT INR APTT Fibrinogen Specimen Type Sample Site pH Bicarbonate Actual POC Total CO2 Base Excess O2 Saturation O2 % ABG pCO2 ABG pO2 Gennaro Test VBG pH VBG pO2 VBG O2 Sat (Calc) VBG O2 Content VBG Base Excess POC Mix VBG pCO2 Pt Tmp Respiration Rate O2 Delivery Device Minute Volume Vent Mode Tidal Volume POC PEEP Blood Gas Notified Whom Blood Gas Notified Time Sodium 145 Potassium 4.4 Chloride 116 H Carbon Dioxide 17.0 L Anion Gap BUN 130 H* Creatinine 2.47 H Estim Creat Clear Calc 22.11 Est GFR (MDRD) Af Amer 25 L Est GFR (MDRD) Non-Af 21 L BUN/Creatinine Ratio 52.6 H Glucose 213 H Lactic Acid Calcium 7.3 L Phosphorus 3.8 Total Bilirubin 2.50 H Direct Bilirubin 2.01 H AST 127 H ALT 78 H Alkaline Phosphatase 252 H Ammonia Total Creatine Kinase 808 H Total Protein 5.1 L Albumin 1.5 L 1.6 L Globulin 3.5 Albumin/Globulin Ratio Random Vancomycin Hepatitis A IgM Ab Hep Bs Antigen Hep B Core IgM Ab POC Glucose 05/16/19 05/16/19 05/16/19 05:14 06:25 06:30 WBC 28.4 H RBC 4.03 L Hgb 12.4 Hct 36.4 L MCV 90.3 MCH 30.8 MCHC 34.1 RDW Std Deviation 55.6 H RDW Coeff of Pierre 16.8 H Plt Count 16 L* MPV Immature Gran % (Auto) 4.500 H Neut % (Auto) 86.2 H Lymph % (Auto) 5.6 L [place] % (Auto) 3.2 Eos % (Auto) 0.0 Baso % (Auto) 0.5 Absolute Neuts (auto) 24.5 H Absolute Lymphs (auto) 1.59 Nucleated RBC % 0.2 Differential Comment SCANNED Diff Path Review May foll Platelet Estimate MKD DEC Crenated Cell Haptoglobin PT INR APTT Fibrinogen Specimen Type Sample Site pH Bicarbonate Actual POC Total CO2 Base Excess O2 Saturation O2 % ABG pCO2 ABG pO2 Gennaro Test VBG pH VBG pO2 VBG O2 Sat (Calc) VBG O2 Content VBG Base Excess POC Mix VBG pCO2 Pt Tmp Respiration Rate O2 Delivery Device Minute Volume Vent Mode Tidal Volume POC PEEP Blood Gas Notified Whom Blood Gas Notified Time Sodium Potassium Chloride Carbon Dioxide Anion Gap BUN Creatinine Estim Creat Clear Calc Est GFR (MDRD) Af Amer Est GFR (MDRD) Non-Af BUN/Creatinine Ratio Glucose Lactic Acid Calcium Phosphorus Total Bilirubin Direct Bilirubin AST ALT Alkaline Phosphatase Ammonia < 10.0 L Total Creatine Kinase Total Protein Albumin Globulin Albumin/Globulin Ratio Random Vancomycin Hepatitis A IgM Ab Hep Bs Antigen Hep B Core IgM Ab POC Glucose 118 H 05/16/19 05/16/19 05/16/19 06:40 08:41 11:30 WBC RBC Hgb Hct MCV MCH MCHC RDW Std Deviation RDW Coeff of Pierre Plt Count MPV Immature Gran % (Auto) Neut % (Auto) Lymph % (Auto) [place] % (Auto) Eos % (Auto) Baso % (Auto) Absolute Neuts (auto) Absolute Lymphs (auto) Nucleated RBC % Differential Comment Diff Path Review Platelet Estimate Crenated Cell Haptoglobin PT 15.6 H INR 1.3 APTT 30.8 Fibrinogen 404 Specimen Type Sample Site pH Bicarbonate Actual POC Total CO2 Base Excess O2 Saturation O2 % ABG pCO2 ABG pO2 Gennaro Test VBG pH VBG pO2 VBG O2 Sat (Calc) VBG O2 Content VBG Base Excess POC Mix VBG pCO2 Pt Tmp Respiration Rate O2 Delivery Device Minute Volume Vent Mode Tidal Volume POC PEEP Blood Gas Notified Whom Blood Gas Notified Time Sodium Potassium Chloride Carbon Dioxide Anion Gap BUN Creatinine Estim Creat Clear Calc Est GFR (MDRD) Af Amer Est GFR (MDRD) Non-Af BUN/Creatinine Ratio Glucose Lactic Acid Calcium Phosphorus Total Bilirubin Direct Bilirubin AST ALT Alkaline Phosphatase Ammonia Total Creatine Kinase Total Protein Albumin Globulin Albumin/Globulin Ratio Random Vancomycin 18.0 H Hepatitis A IgM Ab Hep Bs Antigen Hep B Core IgM Ab POC Glucose 83 05/16/19 05/16/19 05/16/19 17:56 18:31 23:25 WBC RBC Hgb Hct MCV MCH MCHC RDW Std Deviation RDW Coeff of Pierre Plt Count MPV Immature Gran % (Auto) Neut % (Auto) Lymph % (Auto) [place] % (Auto) Eos % (Auto) Baso % (Auto) Absolute Neuts (auto) Absolute Lymphs (auto) Nucleated RBC % Differential Comment Diff Path Review Platelet Estimate Crenated Cell Haptoglobin PT INR APTT Fibrinogen Specimen Type Sample Site pH Bicarbonate Actual POC Total CO2 Base Excess O2 Saturation O2 % ABG pCO2 ABG pO2 Gennaro Test VBG pH VBG pO2 VBG O2 Sat (Calc) VBG O2 Content VBG Base Excess POC Mix VBG pCO2 Pt Tmp Respiration Rate O2 Delivery Device Minute Volume Vent Mode Tidal Volume POC PEEP Blood Gas Notified Whom Blood Gas Notified Time Sodium Potassium Chloride Carbon Dioxide Anion Gap BUN Creatinine Estim Creat Clear Calc Est GFR (MDRD) Af Amer Est GFR (MDRD) Non-Af BUN/Creatinine Ratio Glucose Lactic Acid Calcium Phosphorus Total Bilirubin Direct Bilirubin AST ALT Alkaline Phosphatase Ammonia Total Creatine Kinase Total Protein Albumin Globulin Albumin/Globulin Ratio Random Vancomycin Hepatitis A IgM Ab Hep Bs Antigen Hep B Core IgM Ab POC Glucose 22 L* 235 H 188 H 05/17/19 05/17/19 05/17/19 02:56 05:00 05:00 WBC Pending RBC 4.37 Hgb 13.4 Hct 40.6 MCV 92.9 MCH 30.7 MCHC 33.0 RDW Std Deviation 58.4 H RDW Coeff of Pierre 17.2 H Plt Count 28 L* MPV Immature Gran % (Auto) [employer] Neut % (Auto) [employer] Lymph % (Auto) [employer] [place] % (Auto) [employer] Eos % (Auto) [employer] Baso % (Auto) [employer] Absolute Neuts (auto) Pending Absolute Lymphs (auto) Pending Nucleated RBC % [employer] Differential Comment Diff Path Review Platelet Estimate Crenated Cell Haptoglobin PT INR APTT Fibrinogen Specimen Type ART Sample Site R Brachial pH 7.40 Bicarbonate Actual 13.1 L POC Total CO2 14 Base Excess -12 L O2 Saturation 100 H O2 % 100 ABG pCO2 21.1 L ABG pO2 392 H* Gennaro Test VBG pH VBG pO2 VBG O2 Sat (Calc) VBG O2 Content VBG Base Excess POC Mix VBG pCO2 Pt Tmp Respiration Rate 12 O2 Delivery Device Vent Minute Volume 18.00 Vent Mode A-C Tidal Volume 450 POC PEEP 5 Blood Gas Notified Whom [facility] Blood Gas Notified Time 250 Sodium Potassium Chloride Carbon Dioxide Anion Gap BUN Creatinine Estim Creat Clear Calc Est GFR (MDRD) Af Amer Est GFR (MDRD) Non-Af BUN/Creatinine Ratio Glucose Lactic Acid Calcium Phosphorus Total Bilirubin 2.90 H Direct Bilirubin 1.97 H AST 162 H ALT 83 H Alkaline Phosphatase 208 H Ammonia Total Creatine Kinase Total Protein 5.4 L Albumin 1.6 L Globulin 3.8 Albumin/Globulin Ratio Random Vancomycin Hepatitis A IgM Ab Hep Bs Antigen Hep B Core IgM Ab POC Glucose 05/17/19 05/17/19 05:00 05:06 WBC RBC Hgb Hct MCV MCH MCHC RDW Std Deviation RDW Coeff of Pierre Plt Count MPV Immature Gran % (Auto) Neut % (Auto) Lymph % (Auto) [place] % (Auto) Eos % (Auto) Baso % (Auto) Absolute Neuts (auto) Absolute Lymphs (auto) Nucleated RBC % Differential Comment Diff Path Review Platelet Estimate Crenated Cell Haptoglobin PT INR APTT Fibrinogen Specimen Type Sample Site pH Bicarbonate Actual POC Total CO2 Base Excess O2 Saturation O2 % ABG pCO2 ABG pO2 Gennaro Test VBG pH VBG pO2 VBG O2 Sat (Calc) VBG O2 Content VBG Base Excess POC Mix VBG pCO2 Pt Tmp Respiration Rate O2 Delivery Device Minute Volume Vent Mode Tidal Volume POC PEEP Blood Gas Notified Whom Blood Gas Notified Time Sodium 146 H Potassium 4.7 Chloride 117 H Carbon Dioxide 14.0 L Anion Gap 15 BUN 164 H* Creatinine 3.46 H Estim Creat Clear Calc 15.78 Est GFR (MDRD) Af Amer 17 L Est GFR (MDRD) Non-Af 14 L BUN/Creatinine Ratio 47.4 H Glucose 189 H Lactic Acid Calcium 7.2 L Phosphorus Total Bilirubin 2.70 H Direct Bilirubin AST 163 H ALT 82 H Alkaline Phosphatase 206 H Ammonia Total Creatine Kinase Total Protein 5.4 L Albumin 1.6 L Globulin 3.8 Albumin/Globulin Ratio 0.4 L Random Vancomycin Hepatitis A IgM Ab Hep Bs Antigen Hep B Core IgM Ab POC Glucose 180 H Microbiology 05/14/19 10:50 Blood Culture (Wb) - Anticubital Right Blood Culture - Preliminary No growth in 48 hours. 05/14/19 08:00 Blood Culture (Wb) - Central Line Blood Culture - Preliminary No growth in 48 hours. 05/13/19 19:40 Blood Culture (Wb) - Left Forearm Blood Culture - Final Pasteurella multocida 05/13/19 18:15 Blood Culture (Wb) - Central Line Blood Culture - Final Pasteurella multocida 05/13/19 11:40 Blood Culture (Wb) - Anticubital Left Blood Culture - Preliminary Sphingomonas paucimobilis 05/13/19 22:55 Sputum, Induced/Lukens Gram Stain - Final 05/13/19 22:55 Sputum, Induced/Lukens Respiratory Culture - Final Serratia marcescens Enterobacter cloacae complex Staphylococcus pseudintermediu 05/13/19 10:49 Urine Catheter - Catheter Urine Culture - Final Culture exhibits no growth. 05/13/19 11:54 Blood Culture (Wb) - Left Hand Blood Culture - Final Gram negative joan Clinical Impression(s) from Imaging Studies Chest X-Ray 05/13/19 09:57 IMPRESSION: The tip of the endotracheal tube is at 3.7 cm proximal to the morena. Electronically Signed: Jose Longo, at 10:51 EDT , Service support , Brain CT 05/13/19 09:58 IMPRESSION: Chronic involutional changes of the brain. Electronically Signed: Jose Longo, at 11:18 EDT , Service support , Chest X-Ray 05/13/19 09:59 IMPRESSION: The tip of the endotracheal tube is at the origin of the right mainstem bronchus. It should be withdrawn approximately 3 cm. Electronically Signed: Jose Qing, at 10:51 EDT , Service support , Chest X-Ray 05/13/19 16:45 IMPRESSION: Central catheter extends to the cavoatrial junction. No pneumothorax. Electronically Signed: Toi Saenz MD at 17:32 EDT , Service support , Abdomen CT 05/13/19 19:47 IMPRESSION: Infrarenal abdominal aortic aneurysm. No rupture or periaortic collection. Colonic diverticulosis. No obstruction. Bilateral lower lung infiltrates. Electronically Signed: Toi Saenz MD at 23:09 EDT , Service support , Chest X-Ray 05/14/19 05:55 IMPRESSION: Left mid lower lung field atelectasis versus pneumonia with mild left effusion. Mild right perihilar atelectasis. Overall exam is stable or slightly worsened on the left compared to recent study. Lines and tubes as described above. Electronically Signed: Sara Jesus MD at 4:07 EDT , Service support , Chest X-Ray 05/15/19 14:30 IMPRESSION: Low lung volumes. Grossly clear lungs. Electronically Signed: Chriss Martinez, at 15:33 EDT Tel , Service support , Brain CT 05/15/19 16:55 IMPRESSION: Mild cortical atrophy and periventricular white matter ischemic changes. No evidence for acute bleed. If concern for acute infarct MRI recommended Electronically Signed: Reynaldo Hall MD at 17:19 EDT , Service support , Chest X-Ray 05/16/19 06:05 IMPRESSION: Lines and tubes as described above. Mild left base atelectasis, cannot exclude minimal left-sided pleural effusion versus pleural thickening. Electronically Signed: Sara Jesus MD at 6:43 EDT , Service support , Medical Necessity - Tobacco Use Smoking Status: Former smoker - she quit in 2018 but prior to that she smoked 1-1/2 packs of cigarettes daily for at least 40 years. Tobacco Use: Cigarettes Assessment/Plan All Active Problems (Last Reviewed 05/13/19 @ 20:07 by Trupti Bagley DO) Acute respiratory failure with hypoxia (Acute) Atrial fibrillation with rapid ventricular response (Acute) Thrombocytopenia (Acute) Dehydration (Acute) Septic shock (Acute) Acute febrile illness (Acute) Rhabdomyolysis (Acute) ARF (acute renal failure) (Acute) Uremic encephalopathy (Acute) Abnormal LFTs (Acute) Metabolic acidosis (Acute) Lactic acidosis (Acute) Cat bite involving extremity (Resolved) Cellulitis (Resolved) Dysphagia (Resolved) Ulcer of right lower leg (Resolved) RECOMMENDATIONS: 1. Continue current supportive measures with invasive mechanical ventilatory support and broad-spectrum antimicrobials. 2. Continue vasopressor support and wean as tolerated. 3. Avoid sedating medications. 4. Await nephrology input regarding worsening renal insufficiency. 5. Avoid antipsychotics in the future over concerns for the development of neuroleptic malignant syndrome. 6. Resume tube feeds today. 7. Continue appropriate ICU prophylaxis. IMPRESSIONS: 1. Acute hypoxemic respiratory failure The patient was initially found down in an unresponsive state by family members. She was subsequently intubated upon arrival to the emergency department. While the patient initially did not have evidence of an infiltrate on plain film chest x-ray, she was significantly intravascularly volume depleted. The patient subsequently developed evidence of airspace disease on follow-up chest imaging. While she does have a prior smoking history, she does not have evidence of COPD on pulmonary function studies. We will plan to continue current supportive measures with invasive mechanical ventilatory support and broad-spectrum antimicrobial coverage. We will wean FiO2 to maintain an oxygen saturation at or above 90%. 2. Polymicrobial septic shock The patient has evidence of gram-negative bacteremia and polymicrobial pneumonia. Patient will be continued on broad-spectrum antimicrobials accordingly. Infectious diseases is currently following. Continue vasopressor support as needed to maintain hemodynamic stability. 3. Metabolic encephalopathy Likely secondary to significant underlying metabolic derangements/uremia. Nephrology is currently following. Initial and follow-up CT head was negative. The patient has no known history of an underlying seizure disorder. I do not anticipate improvement in the patient's mental state until her uremia improves. In the interim, will avoid sedating medications. 4. Acute on chronic kidney disease This is likely prerenal in etiology and related to significant intravascular volume depletion and subsequent ischemic ATN in the setting of hemodynamic instability. Nephrology is following. We will monitor urine output. Await additional input from nephrology accordingly. 5. Atrial fibrillation with rapid ventricular rate The patient did present to the emergency department with new onset atrial fibrillation with rapid ventricular rate, which may have been precipitated by the patient's current infectious state. Cardiology is following. Continue amiodarone accordingly. 6. Thrombocytopenia The patient was noted to have a normal platelet count in February 2019. While the etiology for the patient's thrombocytopenia is unclear, considerations would include DIC in the setting of sepsis versus a possible thrombotic microangiopathy. While DIC is a consideration, her INR and PTT are normal. Fibrinogen was also normal. If the patient were to develop bleeding, this may be the consequence of platelet dysfunction in the setting of uremia. Desmopressin may be required in that particular situation. The patient was subsequently evaluated by hematology who felt that the thrombocytopenia was likely secondary to her sepsis syndrome. At the current time, there is no indication for transfusion of platelets. 7. Elevated transaminases I suspect there is likely a component of shock liver at play here, given the patient's tenuous hemodynamics. A CT abdomen/pelvis was largely unrevealing. 8. Troponin elevation Likely secondary to demand ischemia in the setting of septic shock. 9. Super morbid obesity/history of medical noncompliance/obstructive sleep apnea/history of tobacco dependency, in remission Complicates care, management, recovery and prognosis. Resume tube feeds as ordered. Physical therapy to work with the patient, once medically stabilized. TIME: 40 minutes of critical care time, independent of procedures, was spent addressing the patient's acute hypoxemic respiratory failure, septic shock, metabolic encephalopathy, acute on chronic kidney disease, atrial fibrillation with rapid ventricular rate, thrombocytopenia, review of all data and collaboration with the care team. ([id number]) Code Visit [id number]: [id number] Critical care first hour
[2019-05-17 07:07] LABS: Absolute Lymphocyte Count 1.39 X10^3/uL (0.83-4.51); Absolute Neutrophil Count 25.3 X10^3/uL (2.0-7.7); Scan Smear per Review Criteria MANUAL DIFF; Total Cells Counted 100 (MANUAL DIFF)
[2019-05-17 07:08] LABS: Lymphocyte 5 % (19-41); Metamyelocyte 1 % (0-1); Monocyte 3 % (0-10); Neutrophil-Band 2 % (0-5); Neutrophil-Segmented 89 % (47-70); Nucleated Red Bld Cells,Manual 3 % (0-5); Platelet Estimate MKD DEC (ADEQ)
--- NOTE | 2019-05-17 08:14 | NURSING ---
Pt not responding purposefully at this time to verbal stim. Unable to complete CAM.
--- NOTE | 2019-05-17 08:54 | PN.CARD_ITS ---
Subjectve: Patient seen and evaluated. Status quo ante Objective: Vital Signs Temp Pulse Resp BP Pulse Ox 100.9 F H 108 H 24 H 110/74 100 05/17/19 08:00 05/17/19 08:00 05/17/19 08:00 05/17/19 08:00 05/17/19 08:00 Oxygen Delivery Method Mechanical Ventilator Weight: 298 lb 15.149 oz Body Mass Index (BMI) 45.2 Finger Stick Blood Glucose 180 Intake and Output for Last 24 Hours 05/15/19 05/16/19 05/17/19 23:59 23:59 23:59 Intake Total 3005.00 / 3033.54 1412.11 / 1414.94 349.85 / 349.85 Output Total 1250 / 1500 1000 / 1000 125 / 125 Balance 1755.00 / 1533.54 412.11 / 414.94 224.85 / 224.85 General: Ill Appearing, Obese HEENT: PERRL, EOMI, Sclera Non Icteric Neck: Supple, Good ROM, No Lymph Node Enlargement Lungs: Clear to auscultation Cardiovascular: Irregular Rhythm, Normal S1, Normal S2, No Murmurs, No Rubs, No Gallops Vascular: No Carotid Bruits, Normal Femoral Pulses, Normal Radial Pulses, Normal Dorsalis Pedal Pulse, Normal Posterior Tibial Pulses Abdomen: Bowel Sounds Present, Soft, Non Tender, No HSM, No Organomegaly Extremities: No Cyanosis, No Clubbing, Bilateral Edema +1 Musculoskeletal: No Erythema Skin: No Rashes Lymphatic: No Lymph Node Enlargement Neurological: No Focal Motor or Sensory Deficit Psych/Mental Status: Appropriate 05/17/19 02:56: pH 7.40, Bicarbonate Actual 13.1 L, POC Total CO2 14, Base Excess -12 L, O2 Saturation 100 H, ABG pCO2 21.1 L, ABG pO2 392 H* 05/17/19 05:00: Total Bilirubin 2.90 H, Direct Bilirubin 1.97 H 05/17/19 05:00: WBC 27.8 H, RBC 4.37, Hgb 13.4, Hct 40.6, MCV 92.9, MCH 30.7, MCHC 33.0, Plt Count 28 L*, Immature Gran % (Auto) [employer]TE[employer]CE [employer]PER[employer]OR, Neut % (Auto) TRANSMISSION MAINTENANCE SUPERVISOR, Lymph % (Auto) TRANSMISSION MAINTENANCE SUPERVISOR, Waller % (Auto) TRANSMISSION MAINTENANCE SUPERVISOR, Eos % (Auto) TRANSMISSION MAINTENANCE SUPERVISOR, Baso % (Auto) TRANSMISSION MAINTENANCE SUPERVISOR, Absolute Neuts (auto) 25.3 H, Total Counted 100, Neutrophils % (Manual) 89 H, Band Neutrophils % 2, Lymphocytes % (Manual) 5 L, Monocytes % (Manual) 3, Metamyelocytes % 1, Nucleated RBC % [employer]SM[employer]INTENANCE SUPERVISOR 05/17/19 05:00: Sodium 146 H, Potassium 4.7, Chloride 117 H, Carbon Dioxide 14.0 L, Anion Gap 15, BUN 164 H*, Creatinine 3.46 H, Est GFR (MDRD) Af Amer 17 L, Est GFR (MDRD) Non-Af 14 L, BUN/Creatinine Ratio 47.4 H, Glucose 189 H, Calcium 7.2 L, Total Bilirubin 2.70 H Rhythm: EKG: ECHO: Stress Test: Cardiac Cath: PCI: CT Surgery: Holter monitor: EPS: PPM: CXR: Chest CT Scan: Medical Necessity - Tobacco Use Smoking Status: Former smoker - she quit in 2018 but prior to that she smoked 1- 1/2 packs of cigarettes daily for at least 40 years. Tobacco Use: Cigarettes Assessment/Plan 1. Atrial fibrillation with rapid ventricular response rate. * It is not clear the duration of the above. My recommendation at this time however would be to attempt to slow down her heart rate to improve filling pressures as well as her blood pressure. I would agree with using intravenous amiodarone despite the fact that she is not anticoagulated. An echocardiogram was performed demonstrated overall preserved left ventricular systolic function estimated at 50% with septal hypokinesis and paradoxical septal motion. * 2. Status post aortic valve replacement * Patient apparently has a history of aortic valve replacement and at this time my recommendation would be for us to continue with aggressive treatment with antibiotics. His aortic valve was not very well evaluated on the transthoracic echocardiogram. * Transesophageal echocardiogram performed demonstrated normal left ventricular function, structurally normal mitral and tricuspid valves, a prosthetic aortic valve with no significant vegetation noted and a stable pulmonary valve. * Above discussed with ICU team Patient appears to be critically ill and supportive measures would be instituted including improving her acute renal failure. I will continue to follow with you. No changes have been noted in the last 24 hours Thank you for allowing me to participate in the care of your patient. Please don't hesitate to call if any issues arise
[2019-05-17] MEDS: Chlorhexidine 15 ML PO (09:48)
[2019-05-17] MEDS: Famotidine 20 MG Tablet PO (09:48)
[2019-05-17] MEDS: CHLORHEXIDINE GLUC 2% CLOTH 1 EACH TOWELETTE TOPICAL (09:48)
[2019-05-17] MEDS: Vital AF 1.2 Cal Liquid 1,000 ML 20 ML GT (09:55)
[2019-05-17 11:30] LABS: Bedside Glucose 204 mg/dL (70-110)
[2019-05-17 12:26] LABS: Vancomycin, Trough Level 25.2 ug/mL (5.0-15.0)
--- NOTE | 2019-05-17 12:42 | PCM.RX.CS ---
Consult Pharmacy has been consulted to manage selected antiobiotic: Vancomycin Type of Consult: Follow-up Suspected Infection: Other Prior Doses of Antibiotics Received/Current Regimen: Patient was on 1250mg IV q24h since 05/15/19 but today's dose was being held until the vancomycin level was back Labs: Sodium 146 mmol/L (136-145) H 05/17/19 05:00 Potassium 4.7 mmol/L (3.5-5.1) 05/17/19 05:00 Chloride 117 mmol/L (98-107) H 05/17/19 05:00 Carbon Dioxide 14.0 mmol/L (21.0-32.0) L 05/17/19 05:00 Anion Gap 15 (5-15) 05/17/19 05:00 BUN 164 mg/dL (7-18) H* 05/17/19 05:00 Creatinine 3.46 mg/dL (0.55-1.02) H 05/17/19 05:00 Est GFR (MDRD) Af Amer 17 mL/min (>60) L 05/17/19 05:00 Est GFR (MDRD) Non-Af 14 mL/min (>60) L 05/17/19 05:00 BUN/Creatinine Ratio 47.4 RATIO (10-20) H 05/17/19 05:00 Glucose 189 mg/dL (74-106) H 05/17/19 05:00 Vancomycin Trough 25.2 ug/mL (5.0-15.0) H 05/17/19 11:45 Random Vancomycin 18.0 ug/mL (0.0-15.0) H 05/16/19 08:41 Microbiology: Microbiology 05/13/19 11:54 Blood Culture (Wb) - Left Hand Blood Culture - Final Gram negative joan 05/14/19 10:50 Blood Culture (Wb) - Anticubital Right Blood Culture - Preliminary No growth in 48 hours. 05/14/19 08:00 Blood Culture (Wb) - Central Line Blood Culture - Preliminary No growth in 48 hours. 05/13/19 19:40 Blood Culture (Wb) - Left Forearm Blood Culture - Final Pasteurella multocida 05/13/19 18:15 Blood Culture (Wb) - Central Line Blood Culture - Final Pasteurella multocida 05/13/19 11:40 Blood Culture (Wb) - Anticubital Left Blood Culture - Preliminary Sphingomonas paucimobilis 05/13/19 22:55 Sputum, Induced/Lukens Gram Stain - Final 05/13/19 22:55 Sputum, Induced/Lukens Respiratory Culture - Final Serratia marcescens Enterobacter cloacae complex Staphylococcus pseudintermediu 05/13/19 10:49 Urine Catheter - Catheter Urine Culture - Final Culture exhibits no growth. Weight used for dosin.6 kg Estimated Creatinine Clearance: 15.8ml/min Goal Trough: 15-20 mcg/mL Pharmacy Plan for Drug Dosing: The random level drawn today at 11:45 came back as 25.2 mg/L (drawn 24 hours after the previous dose). This is above goal range of 15-20 so will not give today's dose and also will discontinue q24h scheduled dosing for now and revert back to dosing off of random levels. The patient's SCr has also risen to 3.46 (CrCl 15.8) from a SCr of 2.47 (CrCl 22) yesterday. Another random level will be taken tomorrow about 24 hours after today's level. Pharmacy Service will continue to monitor and adjust dosing as required. Follow-Up Labs: Trough Vancomycin - random level Labs to be done on [date and time ordered]: 05/18/19 12:00
--- NOTE | 2019-05-17 14:51 | NURSING ---
Pt's nephew, Trell, updated on pt current status and poor prognosis. Advised that he might want to come in to see pt and speak with doctor. Trell states that he would be in later after dropping children off but did not give at time.
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
--- NOTE | 2019-05-17 16:28 | RAD_ITS ---
STUDY: X-RAY CHEST REASON FOR EXAM: Female, 64 years old. Line placement verification. TECHNIQUE: Single frontal view of the chest. COMPARISON: May 16, 2019. FINDINGS: Endotracheal and NG tubes are stable. Stable left subclavian catheter. New right subclavian triple lumen catheter with tip projecting over the mid-SVC. Low volume inspiration with atelectasis at both bases. There is no demonstrated pleural abnormality. Cardiomegaly with postsurgical changes unaltered. Calcified hilar nodes unchanged. Normal visualized pulmonary arteries. Normal visualized aortic arch and descending thoracic aorta. Normal visualized thoracic spine. Normal visualized ribs, clavicles, and shoulders. There is no demonstrated abnormality of the visualized soft tissue structures of the upper abdomen. RAD/CXR for Line Placement IMPRESSION: Stable chest with new right subclavian triple-lumen catheter without complications. Electronically Signed: Blayne Fisher MD at 17:00 EDT , Service support ,
--- NOTE | 2019-05-17 16:41 | NURSING ---
Sis, rag shredder, called and updated that pt's HD line is in and ready to use. Sis relayed to this RN that she will be to [facility] in an hour and a half.
--- NOTE | 2019-05-17 17:07 | NURSING ---
Cooling blanket resumed d/t fever 103
--- NOTE | 2019-05-17 17:31 | PCM.OPRPT ---
Report of Operation Date of Procedure: 05/17/19 Pre-Operative Diagnosis: acute renal failure, sepsis Post-Operative Diagnosis: same Surgery/Procedure Performed:: placement of dual lumen dialysis catheter in right subclavian vein Description of Surgical Findings:: attempted to access right internal jugular, right subclavian vein accessed and catheter into SVC Specimen's removed: none Estimated Blood Loss (mL): 10 ml Fluids Replaced: NA Description of Procedure: Consent was obtained by patient's medical POA. Appropriate time out protocol was followed. The right neck area and upper right chest was then prepped with a surgical skin preparation and sterile surgical drapes were placed. After proper landmarks were ascertained, the skin at the right neck and upper right chest area was then infiltrated with 1% xylocaine with epinephrine. A needle trocar was then inserted into the right internal jugular vein. There was good aspiration of venous blood. The wire was threaded into the needle trocar but could not be advanced very far. The needle was then repositioned, but still the wire could not be advanced. Therefore the needle and wire were removed and pressure applied to the site. A needle trocar was then inserted into the rightt subclavian vein and there was good aspiration of venous blood. A wire was then threaded into the needle trocar. This was done without resistance and felt normal. The needle trocar was then removed. A small skin alfonso was made with an 11 blade knife at the wire entrance site. The individual dilators were then passed over the wire via the Seldinger technique. The dialysis catheter was then passed over the wire. The wire was removed once the catheter was in place. The dialysis catheter was then flushed with normal saline. It was sutured into position using nylon suture. Sterile dressing was applied. Post procedure CXR revealed catheter tip in SVC. No evidence of a pneumothorax. Grafts/Implants Used: Mahurkar Elite 12Fr 20 cm dialysis catheter - Complications none noted - Admit VTE Documentation VTE Present on Admission: Yes VTE Mechan Device Prophylaxis: SCD's
[2019-05-17 18:36] LABS: Bedside Glucose 191 mg/dL (70-110)
--- NOTE | 2019-05-17 18:38 | PCM.PN.REN ---
Patient Problems: Active and Suspected Problems (Last Reviewed 05/13/19 @ 20:07 by Trupti Bagley DO) Acute respiratory failure with hypoxia (Acute) Atrial fibrillation with rapid ventricular response (Acute) Thrombocytopenia (Acute) Dehydration (Acute) Septic shock (Acute) Acute febrile illness (Acute) source not yet identified Rhabdomyolysis (Acute) ARF (acute renal failure) (Acute) Uremic encephalopathy (Acute) Abnormal LFTs (Acute) Metabolic acidosis (Acute) Lactic acidosis (Acute) Subjective: Pt remains unresponsive . Intubated with FI02 40% On Levophed at 30 mcg/min UOP so far 200 cc Right subclavian temp HD access was placed by the surgeon this afternoon. - Physical Exam Vitals/I&O's: Vital Signs Temp Pulse Resp BP Pulse Ox 103.4 F H 125 H 40 H 111/60 99 05/17/19 18:00 05/17/19 18:00 05/17/19 18:00 05/17/19 18:15 05/17/19 18:00 Oxygen Delivery Method Mechanical Ventilator Weight: 135.6 kg Body Mass Index (BMI) 45.2 Finger Stick Blood Glucose 180 Intake and Output for Last 24 Hours 05/15/19 05/16/19 05/17/19 23:59 23:59 23:59 Intake Total 3005.00 / 3033.54 1412.11 / 1414.94 1082.20 / 1082.20 Output Total 1250 / 1500 1000 / 1000 345 / 345 Balance 1755.00 / 1533.54 412.11 / 414.94 737.20 / 737.20 General: Well developed, - - Unresponsive . HEENT: Atraumatic Neck: Supple, No JVD Lungs: Clear to auscultation, - - On Vent support Cardiovascular: Regular rate, Tachycardic Abdomen: Bowel Sounds Present, Soft, Hypoactive Bowel Sounds Extremities: Cyanosis, - - cold extremities Lymphatic: No Cervical, Supraclavicular, or Inguinal Adenopathy Microbiology Past 72 Hours 05/13/19 11:54 Blood Culture (Wb) - Left Hand Blood Culture - Final Gram negative joan 05/14/19 10:50 Blood Culture (Wb) - Anticubital Right Blood Culture - Preliminary No growth in 48 hours. 05/14/19 08:00 Blood Culture (Wb) - Central Line Blood Culture - Preliminary No growth in 48 hours. 05/13/19 19:40 Blood Culture (Wb) - Left Forearm Blood Culture - Final Pasteurella multocida 05/13/19 18:15 Blood Culture (Wb) - Central Line Blood Culture - Final Pasteurella multocida 05/13/19 11:40 Blood Culture (Wb) - Anticubital Left Blood Culture - Preliminary Sphingomonas paucimobilis 05/13/19 22:55 Sputum, Induced/Lukens Gram Stain - Final 05/13/19 22:55 Sputum, Induced/Lukens Respiratory Culture - Final Serratia marcescens Enterobacter cloacae complex Staphylococcus pseudintermediu 05/13/19 10:49 Urine Catheter - Catheter Urine Culture - Final Culture exhibits no growth. Laboratory Results 05/16/19 23:25: POC Glucose 188 H 05/17/19 02:56: Specimen Type ART, Sample Site R Brachial, pH 7.40, Bicarbonate Actual 13.1 L, POC Total CO2 14, Base Excess -12 L, O2 Saturation 100 H, O2 % 100, ABG pCO2 21.1 L, ABG pO2 392 H*, Respiration Rate 12, O2 Delivery Device Vent, Minute Volume 18.00, Vent Mode A-C, Tidal Volume 450, POC PEEP 5, Blood Gas Notified Whom TELLO CHAN, Blood Gas Notified Time 250 05/17/19 05:00: Total Bilirubin 2.90 H, Direct Bilirubin 1.97 H, AST 162 H, ALT 83 H, Alkaline Phosphatase 208 H, Total Protein 5.4 L, Albumin 1.6 L, Globulin 3.8 05/17/19 05:00: WBC 27.8 H, RBC 4.37, Hgb 13.4, Hct 40.6, MCV 92.9, MCH 30.7, MCHC 33.0, RDW Std Deviation 58.4 H, RDW Coeff of Pierre 17.2 H, Plt Count 28 L*, Immature Gran % (Auto) [employer]S AND HUMANITIES COUNCIL DIRECTOR, Neut % (Auto) [employer]S AND HUMANITIES COUNCIL DIRECTOR, Lymph % (Auto) ARTS AND HUMANITIES COUNCIL DIRECTOR, [place] % (Auto) ARTS AND HUMANITIES COUNCIL DIRECTOR, Eos % (Auto) [employer]S AND HUMANITIES COUNCIL DIRECTOR, Baso % (Auto) [employer]S AND HUMANITIES COUNCIL DIRECTOR, Absolute Neuts (auto) 25.3 H, Absolute Lymphs (auto) 1.39, Total Counted 100, Neutrophils % (Manual) 89 H, Band Neutrophils % 2, Lymphocytes % (Manual) 5 L, Monocytes % (Manual) 3, Metamyelocytes % 1, Nucleated RBC % [employer] HUM[employer]IES COUNCIL DIRECTOR, Nucleated RBCs/100 WBC 3, Diff Path Review May foll, Platelet Estimate MKD DEC 05/17/19 05:00: Sodium 146 H, Potassium 4.7, Chloride 117 H, Carbon Dioxide 14.0 L, Anion Gap 15, BUN 164 H*, Creatinine 3.46 H, Estim Creat Clear Calc 15.78, Est GFR (MDRD) Af Amer 17 L, Est GFR (MDRD) Non-Af 14 L, BUN/Creatinine Ratio 47.4 H, Glucose 189 H, Calcium 7.2 L, Total Bilirubin 2.70 H, AST 163 H, ALT 82 H, Alkaline Phosphatase 206 H, Total Protein 5.4 L, Albumin 1.6 L, Globulin 3.8, Albumin/Globulin Ratio 0.4 L 05/17/19 05:06: POC Glucose 180 H 05/17/19 11:26: POC Glucose 204 H 05/17/19 11:30: Blood Type O POSITIVE 05/17/19 11:45: Vancomycin Trough 25.2 H 05/17/19 18:18: POC Glucose 191 H Current Medications Acetaminophen (Tylenol Liquid) 650 mg NG Q6 [facility] Last Admin: 05/17/19 18:19 Dose: 650 mg Documented by: Calamine/Phenol (Calmoseptine Ointment) 1 applic TOPICAL TID [facility]; Protocol Last Admin: 05/17/19 13:59 Dose: 1 applicatio Documented by: Chlorhexidine Gluconate () 1 each TOPICAL DAILY [facility] Last Admin: 05/17/19 09:48 Dose: 1 each Documented by: Chlorhexidine Gluconate () 15 ml PO BID [facility] Last Admin: 05/17/19 09:48 Dose: 15 ml Documented by: Dextrose (D50w Syringe) 0 gm IV X1 PRN; Protocol PRN Reason: Hypoglycemia Last Admin: 05/16/19 18:01 Dose: 25 gm Documented by: Famotidine (Pepcid) 20 mg PO DAILY [facility] Last Admin: 05/17/19 09:48 Dose: 20 mg Documented by: Glucagon () 1 mg IM .X1 PRN PRN Reason: Hypoglycemia Vancomycin IV Pharmacy to Dose (1 ea/ Sodium Chloride) 500 mls @ 250 mls/hr IV PRN PRN; Protocol PRN Reason: Rx to Dose Enteral Nutritional Formula (Vital Af 1.2 Cesar Liquid) 1,000 mls @ 20 mls/hr GT .Q48H [facility] Last Admin: 05/17/19 09:55 Dose: 20 mls/hr Documented by: Meropenem 1 gm/ Sodium (Chloride) 120 mls @ 33 mls/hr IV Q12 [facility] Last Infusion: 05/17/19 13:27 Dose: Infused Documented by: Amiodarone HCl 360 mg/ (Dextrose) 200 mls @ 16.667 mls/hr CONT INF .Q12H [facility] Last Infusion: 05/17/19 18:00 Dose: 0.5 mg/min, 16.7 mls/hr Documented by: Norepinephrine Bitartrate 8 mg (/ Sodium Chloride) 250 mls @ 9.375 mls/hr CONT INF .[id number] [facility]; Protocol Last Titration: 05/17/19 18:15 Dose: 30 mcg/min, 56.3 mls/hr Documented by: Insulin Human Lispro (Humalog Kwikpen (Bkc)) 0 unit SC Q6 [facility]; Protocol Last Admin: 05/17/19 18:19 Dose: 1 u Documented by: Nystatin (Mycostatin Powder) 1 applic TOPICAL TID [facility]; Protocol Last Admin: 05/17/19 13:59 Dose: 1 applicatio Documented by: Sodium Chloride () 10 - 40 ml IV UD PRN PRN Reason: Multilumen/Santos Flush Last Admin: 05/17/19 05:11 Dose: 20 ml Documented by: Sodium Chloride (0.9% Nacl (Sterile) Posiflush) 10 - 40 ml IV UD PRN PRN Reason: Port access or dressing change Sodium Chloride () 10 - 40 ml IV UD PRN PRN Reason: SALINE FLUSH Last Admin: 05/16/19 09:52 Dose: 40 ml Documented by: Medical Necessity - Tobacco Use Smoking Status: Former smoker - she quit in 2018 but prior to that she smoked 1-1/2 packs of cigarettes daily for at least 40 years. Tobacco Use: Cigarettes Assessment/Plan All Active Problems (Last Reviewed 05/13/19 @ 20:07 by Trupti Bagley DO) Acute respiratory failure with hypoxia (Acute) Atrial fibrillation with rapid ventricular response (Acute) Thrombocytopenia (Acute) Dehydration (Acute) Septic shock (Acute) Acute febrile illness (Acute) Rhabdomyolysis (Acute) ARF (acute renal failure) (Acute) Uremic encephalopathy (Acute) Abnormal LFTs (Acute) Metabolic acidosis (Acute) Lactic acidosis (Acute) Cat bite involving extremity (Resolved) Cellulitis (Resolved) Dysphagia (Resolved) Ulcer of right lower leg (Resolved) 1. Acute kidney injury. No prior history of CKD or prior SCr for comparison. ALBERTO is likely due to ischemic ATN related to septic shock. No hydronephrosis on abdominal CT. Pt has been oliguric and renal function worsened. BUN is up to 160. PATIENT OBSERVATION ASSISTANT is indicated Right subclavian temp HD access was placed on 05/17 HD session today : BQ 250 DQ 500 UF none Keep MAP>65. Avoid nephrotoxins such as NSAID/IV contrast. Likely the patient will need another HD session tomorrow 2-AG MA. From ALBERTO and shock. should improve with HD session Check ABG in am 3. Septic shock. Has GNB blood stream infection. back on max dose of levophed. Antibiotics as per hospitalist. Keep MAP > 65 4. Acute hypoxic respiratory failure. Has pneumonia. Antibiotic as per hospitalist. Vent management as per camp manager Renal team will continue to follow Please call if any question Mateus Cevallos MD
--- NOTE | 2019-05-17 19:16 | NURSING ---
Pt being prepared for HD; deeply discolored hands,extending to blake wrists from fingertips at this time. Blake feet/ankles cool and mottled half way up shins.
--- NOTE | 2019-05-17 19:20 | NURSING ---
Unable to complete CAM assessment
--- NOTE | 2019-05-17 19:33 | NURSING ---
Pt noted to have a junctional rhythm on the monitor w/ventricular rate of 53. Pt found to be agonal breathing on the vent and pulseless. Code Blue and CPR initiated immediately.
--- NOTE | 2019-05-17 19:40 | NURSING ---
Dr. Bagley on the phone w/pt's MPOA, Trell Reece, giving updates on pt's current condition. MPOA made decision to stop aggressive resuscitative measures, pronounced pt's as CPR was stopped.
--- NOTE | 2019-05-17 19:44 | EXP.PCM_ITS ---
Preliminary Cause of septic shock due to Sphingomonas Paucimobilis and Pasturella Multocida Date of Admission: 05/13/19 Date of : 05/17/19 - Principle Diagnosis Septic shock secondary to Sphingomonas Paucimobilis and Pasteurella multocida Problem List: Active and Suspected Problems (Last Reviewed 05/13/19 @ 20:07 by Trupti Bagley DO) Acute respiratory failure with hypoxia (Acute) Atrial fibrillation with rapid ventricular response (Acute) Severe thrombocytopenia (Acute) Severe dehydration (Acute) Rhabdomyolysis (Acute) Nonoliguric ARF (acute renal failure) (Acute) secondary to ATN due to septic shock and dehydration Uremic/toxic encephalopathy (Acute) Abnormal LFTs (Acute) Metabolic acidosis (Acute) Lactic acidosis (Acute) Hospital Course The patient was a 64 year old F with a past medical history of hypertension, COPD, obstructive sleep apnea, anxiety/depression, GERD, hyperlipidemia, morbid obesity, tobacco dependence in remission, degenerative disc disease, chronic back pain, opiate dependence, benzodiazepine dependence, history of a bioprosthetic aortic valve replacement and gout who was brought to the ED at [facility] on 05/13/19 by squad after being found unresponsive lying by her bed by a friend. The pt could give no hx and she was identified by EMS by a piece of mail. I spoke with her Nephew Mary who is her POA and he told me that she was seen on 05/12 by family and they stated she was OK then. Vital signs at presentation to the emergency room were temperature 96.9, pulse rate 168, blood pressure 129/91, respiratory rate 19. BP later dropped to 68/38 and she was given 3 L of normal saline with improvement in her blood pressure. She was intubated in the emergency department and sent to CT scan for a noncontrasted CT brain which showed chronic involutional changes only and no acute findings. At the time of intubation the ED physician noted the vocal cords with crusted with DC and she was presumed to have aspirated. The initial chest x-ray in the emergency department showed the tip of the ET tube to be in the right mainstem bronchus and it was withdrawn approximately 3 cm. The next chest x-ray showed the tip of the endotracheal tube to be 3 cm above the morena. There was chronic scarring in the left base and no acute findings. White blood cell count was elevated at 14.5 with 87% neutrophils. Hemoglobin was 13.3 and platelets were markedly decreased at 20,000. The MCV and MCHC were within normal limits. PT was mildly prolonged at 15.4 and the PTT was within normal limits. The initial blood gas on a 70% FiO2 with a tidal volume of 450, PEEP of 5 and a respiratory rate of 12 showed a pH of 7.25, PCO2 of 24 and a PO2 of 136. Serum bicarb is low at 19 and the BUN was 123 with a creatinine of 3.99. Creatinine on March 12, 2019 was 0.98. A random blood sugar was 176 and a hemoglobin A1c is 5.8. Lactic acid was elevated at 2.7 and the second lactic acid was 2.2. Total bilirubin was elevated at 2.7 with an AST of 241, ALT of 83, alkaline phosphatase of 247 and these LFT abnormalities are all new for her. The total creatine kinase was 3819. Troponin was elevated at 0.241. Albumin was markedly decreased at 1.8. UA had 0-5 WBCs per high-power field with 0 RBCs. Urine drug screen was positive for methamphetamine however the patient was taking Wellbutrin and I suspect this was a false positive. Ethyl alcohol level was 3.0. An EKG showed atrial fibrillation with rapid ventricular response. Blood and urine cultures were sent from the emergency department. She was admitted to the ICU with a diagnosis of Severe sepsis( unknown source of infection), ARF with uremic encephalopathy, severe thrombocytopenia and acute hypoxic respiratory failure. Dr. Llanes was consulted and also Dr. San and Dr. Hanley.. Hx was obtained from her nephew and review of old H&P's. She was started on Zosyn and Vancomycin and urine, blood and sputum cultures were sent. she was given dig IV and started on an amiodarone drip. A echocardiogram was done that showed a preserved ejection fraction of 50%. The study was technically difficult and the electronics installer was unable to assess for diastolic dysfunction due to atrial fibrillation with rapid ventricular response. BP initially responded to fluid resuscitation but she became hypotensive again and she had to be started on Levophed. She continued to be non-oliguric and because of hypotension and improvement in her creatinine she was not initially dialyzed. The first set of blood cultures grew Sphingomonas Paucimobilis and Pasteurella multocida. Dr. Alarcon was consulted and he recommended NILDA and continuing vancomycin/Zosyn. HIV was negative and a hepatitis panel was also negative. On 05/15 her temp rosa to > 105 after she had 1 mg of Haldol and the possibility of neuroleptic malignant syndrome could not be ruled out. She was administered dantrolene after a stat CT brain showed no acute findings such as bleed or evidence of herniation. The temp came down however she continued to have fevers despite scheduled Tylenol, cooling blankets and packing her axillas and groin with ice. BC's that were redrawn on 05/14 were negative. Sputum Gram stain grew Serratia marcescens, Enterobacter cloacae and Staphylococcus pseudo-intermedius. NILDA was done on 05/16/[address] San and showed a normal left ventricular ejection fraction of 55% with a stable appearing bioprosthetic aortic valve apparatus, +1 MR and no obvious vegetations. PLT's remained low and Dr. Grier from hematology/oncology was consulted on 05/16/2019. He felt the etiology of the thrombocytopenia was multifactorial including sepsis and drugs. Zosyn was discontinued and she was started on meropenem. On 05/17/19 her pupils were dilated for the first time and they were sluggish and minimally responsive. The Creat was increasing again and the BUN was also increasing. She had myoclonic jerking of her head and she was unresponsive to calling her name and to deep painful stimulus. Her fingers were very cyanotic and cold to the touch. The feet were white and cold to the touch. BP was waxing and waning and she was back on Levophed. Prognosis at hazel t time was grim. I spoke with Dr. Cevallos and he felt that HD was necessary at that time. A temporary dialysis catheter was inserted by Dr. Shelley Brian and HD was started. 3 minutes after HD was started she had an agonal rhythm and edgar salamanca was called. The ACLS protocol was initiated while I talked to her nephew Mary on the phone and explained the situation. He was able to make the decision to terminate CPR and allow her to pass because he did not want her to suffer any longer. She was pronounced at 1940 on 05/17/19. The telemetry unit showed agonal rhythm at that time and she had no pulse and she was not initiating any breaths. Code Visit Inpatient E&M: [id number] Disch Hosp
--- NOTE | 2019-05-17 20:04 | DIALYSIS ---
HD STARTED AND APPROX 3 MINUTES INTO TREATMENT PT WENT INTO CARDIAC ARREST. CPR STARTED BY PAYROLL ACCOUNTING SPECIALIST AND CODE PROTOCOL BEGUN. BLOOD RETURNED TO PT AND DISCONNECTED FROM MACHINE.
--- NOTE | 2019-05-17 20:11 | DIALYSIS ---
DR MELÉNDEZ NOTIFIED OF PT EXPIRING
--- NOTE | 2019-05-17 20:34 | CPS ---
Pt intubated and on ventilator prior to code blue
--- NOTE | 2019-05-17 21:30 | NURSING ---
Pt released by heat reader and [employer], post-mortem care provided, all invasive lines and tubes removed.
[2019-05-18 09:26] LABS: Hepatitis B Surface Antibody Non-Reactive
[2019-05-18 09:43] LABS: Hepatitis B Surface Antigen Non-Reactive (Nonreactive)
[2019-05-18 11:44] LABS: Pathologist Review Reviewed
[2019-05-18 11:47] LABS: Pathologist Review Reviewed
[2019-05-18 11:50] LABS: Pathologist Review Reviewed
[2019-05-18 13:20] LABS: ANTINUCLEAR ANTIBODIES DIRECT Negative (Negative)
[2019-05-19 09:38] LABS: Hepatitis B Core Ab Total Negative (Negative)
[2019-05-22 13:06] LABS: Bedside Glucose 116 mg/dL (70-110)
--- NOTE | 2019-05-26 13:41 | EEG ---
- Electroencephalogram Date of service 05/17/2019 History EEG is being done in this 64 yr F to rule out seizures EEG Description: This is an 18 channel EEG with 10-20 lead placement system. Bipolar montages, and Referential montages were reviewed. Photic stimulation was performed but Hyperventilation was not performed. The posterior dominant rhythm was absent. Photo stimulation did not elicit normal driving response or any abnormal photoparoxysmal response, Hyperventilation was not performed. Sleep was not identified. There is generalized abnormal background slowing in the delta frequency noted. There was no epileptiform discharges or electrographic seizures noted during this recording. EEG Interpretation This is an abnormal EEG due to severe generalized slowing. This may be seen in generalized cerebral dysfunction like metabolic/toxic encephalopathy. There is no epileptiform discharges or electrographic seizures noted during the record.
== END 2019-05-17 19:40 | DRG 867 ==
LOC: ED 11:46 → ICU 13:10
PROVIDERS: Internal Medicine; Internal Medicine Critical Care Medicine; Internal Medicine Nephrology; Admitting Provider Internal Medicine; Emergency Provider Emergency Medicine; Family Provider Internal Medicine; PCP Internal Medicine; Referring Provider Internal Medicine; Visit Provider Internal Medicine
DX: A28.0 Pasteurellosis (principal); J96.01 Acute respiratory failure with hypoxia; R65.21 Severe sepsis with septic shock; G93.41 Metabolic encephalopathy; N17.0 Acute kidney failure with tubular necrosis; J18.9 Pneumonia, unspecified organism; Z68.42 Body mass index [BMI] 45.0-49.9, adult; E87.2 Acidosis; M62.82 Rhabdomyolysis; I48.91 Unspecified atrial fibrillation; E66.01 Morbid (severe) obesity due to excess calories; D69.6 Thrombocytopenia, unspecified; Z95.3 Presence of xenogenic heart valve; E86.0 Dehydration; G47.33 Obstructive sleep apnea (adult) (pediatric); Z87.891 Personal history of nicotine dependence
CPT/HCPCS: 31500; 31720; 36600; 51702; 70450; 71045; 74176; 80048; 80053; 80069; 80076; 80202; 80307; 80320; 81001; 82140; 82247; 82248; 82550; 82570; 82803; 82947; 82962; 82977; 83010; 83036; 83605; 83615; 83690; 83735; 84100; 84300; 84478; 84484; 84550; 85025; 85027; 85384; 85610; 85652; 85730; 86038; 86140; 86225; 86235; 86431; 86644; 86703; 86704; 86705; 86706; 86709; 86880; 86900; 86901; 86965; 87040; 87070; 87077; 87086; 87149; 87186; 87205; 87340; 87641; 92950; 93005; 93306; 93312; 93320; 93325; 94002; 94003; 94660; 95819; 97802; 97803; 99251; 99285; J2185; J7030; J7040; J7050; J7120; P9035; Q9957; A4216; C8929; G0463; G0480